=== PATIENT | male | born 1945 | race Caucasian/White ===

== ENCOUNTER → 2017-09-10 | Outpatient (CLI) | payer MEDICARE, BC ==
[2017-09-10 19:28] LABS: Blood Urea Nitrogen 12 mg/dL (9-20)
--- NOTE | 2017-09-10 20:27 | CT ---
EXAMINATION TYPE: CT brain w con DATE OF EXAM: 09/10/2017 COMPARISON: NONE HISTORY: syncope CT DLP: 1108.4 mGycm Automated exposure control for dose reduction was used. CONTRAST: CT scan of the head is performed with IV Contrast, patient injected with 100 mL of Isovue 300. FINDINGS: Ventricles and sulci appear normal. There is no mass effect nor midline shift. There is no sign of in tracranial hemorrhage. I see no pathologic enhancement. The calvarium is intact. There is debris in t he external auditory canals. IMPRESSION: Negative CT scan of the brain.
== END | disposition home or self-care (01) ==
LOC: RADCTMAIN 18:38
PROVIDERS: ATTEND Family Medicine
DX: R26.89 Other abnormalities of gait and mobility (principal); R55 Syncope and collapse
CPT/HCPCS: 82565; 84520; 70460; 36415; Q9967

== ENCOUNTER → 2017-11-01 | Outpatient (CLI) | payer MEDICARE, BC ==
--- NOTE | 2017-11-01 16:26 | MR ---
EXAMINATION TYPE: MR brain wo con DATE OF EXAM: 11/01/2017 COMPARISON: CT brain September 10, 2017 HISTORY: Dizziness and bilateral Loss of Hearing per patient, Unsteady [place] per order. TECHNIQUE: Multiplanar, multisequence imaging of the brain and brainstem is performed without IV cont rast. FINDINGS: Diffusion weighted images demonstrate no evidence of a recent infarct or other diffusion abnormality. There is no worrisome extra-axial fluid collection. There is diffuse ventricular and sulcal prominenc e consistent with mild age-related cerebral atrophy. Few scattered small foci of T2 hyperintensity ar e seen throughout the white matter bilaterally. For reference there is 8mm lesion in the left externa l capsule axial image 15 noted. Midline structures demonstrate normal morphology. The craniocervical junction appears within normal limits. Normal vascular flow voids are present. There is mild mucosal thickening involving ethmoid si nuses bilaterally redemonstrated. The globes are intact bilaterally. 6 Increased fluid signal right g reater than left mastoid air cells remains present. Nasal septum is redemonstrated deviated to right of midline. IMPRESSION: 1. Right greater than left mastoid fluid could reflect mastoiditis in appropriate setting, correlate clinically. 2. Background mild diffuse age-related cerebral atrophy and chronic small vessel ischemic change. 3. Stable mild chronic paranasal sinus disease.
== END | disposition home or self-care (01) ==
LOC: RADMRIMAIN 15:41
PROVIDERS: ATTEND Family Medicine
DX: G31.1 Senile degeneration of brain, not elsewhere classified (principal); I67.82 Cerebral ischemia
CPT/HCPCS: 70551

== ENCOUNTER → 2018-07-22 | Outpatient (CLI) | payer MEDICARE, BC ==
[2018-07-22 13:19] LABS: Blood Urea Nitrogen 12 mg/dL (9-20)
--- NOTE | 2018-07-22 15:23 | CT ---
EXAMINATION TYPE: CT abdomen pelvis w con DATE OF EXAM: 07/22/2018 COMPARISON: 07/26/2015 HISTORY: abdominal pain, diverticulitis CT DLP: 490.3 mGycm CONTRAST: CT scan of the abdomen and pelvis is performed with Oral Contrast and with IV Contrast, patient injec mandy with 100 mL of Isovue 300. FINDINGS: LUNG BASES-: No visible nodule. No infiltrate. LIVER/GB: Cholecystectomy changes noted. No space occupying hepatic lesion. Biliary tree is of nor mal caliber. PANCREAS: No inflammation. No distinct mass. SPLEEN: No splenic enlargement. No lesion seen. ADRENALS: No nodule. No thickening. KIDNEYS/BLADDER: No hydronephrosis. No nephrolithiasis. Renal cystic changes noted. Urinary bladder grossly unremarkable. BOWEL: Normal appendix. Normal bowel caliber. There is extensive diverticulosis of the sigmoid colon with muscle hypertrophy noted. No evidence for active diverticulitis at this time. Additional scatte red diverticula throughout the colon. GENITAL ORGANS: No gross abnormality. LYMPH NODES: No greater than 1cm abdominal or pelvic lymph nodes are appreciated. AORTA: No significant abnormality. OSSEOUS STRUCTURES: No significant abnormality is seen. OTHER: No significant additional abnormality is seen. IMPRESSION: 1. There is extensive diverticulosis of the sigmoid colon with muscle hypertrophy noted. No evidence for active diverticulitis at this time.
== END ==
LOC: RADCTMAIN 12:34
PROVIDERS: ATTEND Family Medicine
DX: K57.30 Diverticulosis of large intestine without perforation or abscess without bleeding (principal); M62.89 Other specified disorders of muscle
CPT/HCPCS: 82565; 84520; 74177; 36415; Q9967

== ENCOUNTER → 2018-12-08 | Outpatient (CLI) | payer MEDICARE, BC ==
[2018-12-08 09:18] LABS: Basophils # (A) 0.2 k/uL (0-0.2); Basophils % (A) 2 %; Eosinophils # (A) 0.1 k/uL (0-0.7); Eosinophils % (A) 2 %; HCT 53.3 % (39.0-53.0); HGB 17.7 gm/dL (13.0-17.5); Lymphocytes # (A) 1.6 k/uL (1.0-4.8); Lymphocytes % (A) 20 %; MCH 34.7 pg (25.0-35.0); MCHC 33.2 g/dL (31.0-37.0); MCV 104.3 fL (80.0-100.0); Macrocytosis Slight; Mean Platelet Volume 7.4; Monocytes # (A) 0.7 k/uL (0-1.0); Monocytes % (A) 8 %; Neutrophils # (A) 5.2 k/uL (1.3-7.7); Neutrophils % (A) 65 %; Platelet Count 241 k/uL (150-450); RBC 5.11 m/uL (4.30-5.90); WBC 7.9 k/uL (3.8-10.6)
[2018-12-08 09:26] LABS: African American GFR (CKD) >90 (>60 ml/min/1.73 sqM); Anion Gap 6 mmol/L; Blood Urea Nitrogen 8 mg/dL (9-20); C Reactive Protein <5.0 mg/L (<10.0); Calcium 9.3 mg/dL (8.4-10.2); Carbon Dioxide 26 mmol/L (22-30); Chloride 107 mmol/L (98-107); Glucose 98 mg/dL (74-99); Sodium 139 mmol/L (137-145)
--- NOTE | 2018-12-08 10:37 | CT ---
EXAMINATION TYPE: CT abdomen pelvis w con DATE OF EXAM: 12/08/2018 COMPARISON: 07/22/2018 HISTORY: Diverticulitis CT DLP: 431.4 mGycm CONTRAST: CT scan of the abdomen and pelvis is performed with Oral Contrast and with IV Contrast, patient injec mandy with 100 mL of Isovue 300. FINDINGS: LUNG BASES-: No visible nodule. No infiltrate. LIVER/GB: The gallbladder surgically absent. No space occupying hepatic lesion. Biliary tree is of normal caliber. There is evidence of mild hepatic steatosis. PANCREAS: No inflammation. No distinct mass. SPLEEN: No splenic enlargement. No lesion seen. ADRENALS: No nodule. No thickening. KIDNEYS/BLADDER: No hydronephrosis. No nephrolithiasis. Stable renal cysts. Largest cyst upper pole right kidney measures 4.4 cm. Urinary bladder grossly unremarkable. BOWEL: Normal appendix. Normal bowel caliber. No inflammation. Moderate sigmoid diverticulosis with out diverticulitis. GENITAL ORGANS: No gross abnormality. LYMPH NODES: No greater than 1cm abdominal or pelvic lymph nodes are appreciated. AORTA: No significant abnormality. OSSEOUS STRUCTURES: No significant abnormality is seen. OTHER: No significant additional abnormality is seen. IMPRESSION: 1. Sigmoid diverticulosis without diverticulitis.
[2018-12-08 12:36] LABS: Erythrocyte Sedimentation Rate 2 mm/hr (0-15)
== END | disposition home or self-care (01) ==
LOC: RADCTMAIN 08:06
PROVIDERS: ATTEND Family Medicine
DX: K57.30 Diverticulosis of large intestine without perforation or abscess without bleeding (principal); E78.00 Pure hypercholesterolemia, unspecified; I10 Essential (primary) hypertension; G89.4 Chronic pain syndrome; F43.22 Adjustment disorder with anxiety
CPT/HCPCS: 80048; 85652; 85025; 86140; 86431; 74177; 36415; Q9967

== ENCOUNTER 2018-12-20 08:56 | Day surgery (SDC) | payer MEDICARE, BC ==
[~2018-12-20 08:56] MED LIST: LIDOCAINE 1% 20 ML VIAL (10MG/ML) FOR IV START INTRADERMA PRN
[2018-12-20 09:25] VITALS: RESP 16; TEMP 97.4
[2018-12-20] MEDS: LACTATED RINGERS 1,000 ML IV SCH ×2 (09:35→10:02)
[2018-12-20] MEDS ORDERED: PROPOFOL 10 MG/ML 20 ML VIAL IV ONE (10:04)
--- NOTE | 2018-12-20 10:08 | P.GSHP ---
History of Present Illness H&P Date: 12/20/18 Chief Complaint: Diverticulitis This a 73-year-old male referred from Dr. Thurston. Patient presents today for colonoscopy. He's had history of diverticulitis. Past Medical History Past Medical History: Hypertension Additional Past Medical History / Comment(s): ABD PAIN, HX OF DIVERTICULTIS. History of Any Multi-Drug Resistant Organisms: None Reported Past Surgical History: Heart Catheterization With Stent Additional Past Surgical History / Comment(s): RETINOL DETACHMENT REPAIR (6 ON LEFT, 1 ON RIGHT). Past Anesthesia/Blood Transfusion Reactions: No Reported Reaction Date of Last Stent Placement:: UNKNOWN DATE Past Psychological History: No Psychological Hx Reported Smoking Status: Current every day smoker Past Alcohol Use History: None Reported Additional Past Alcohol Use History / Comment(s): SMOKES ABOUT 2-3 DAY, SINCE WAS AGE 23 YRS. Past Drug Use History: None Reported Medications and Allergies Home Medications Medication Instructions Recorded Confirmed Type EPINEPHrine [Epipen 2-Linden] 0.3 mg IM ONCE PRN #1 ml 01/12/14 12/20/18 Rx Aspirin EC [Ecotrin Low Dose] 81 mg PO DAILY 12/16/18 12/16/18 History HYDROcodone/APAP 5-325MG [[place] 1 tab PO Q6H PRN 12/16/18 12/16/18 History 5-325] Metoprolol Tartrate 25 mg PO QAM 12/16/18 12/16/18 History Allergies Allergy/AdvReac Type Severity Reaction Status Date / Time venom-honey bee Allergy Anaphylaxis Verified 12/16/18 12:14 [bee venom (honey bee)] Surgical - Exam Vital Signs Temp Pulse Resp BP Pulse Ox 97.4 F L 71 16 133/81 97 12/20/18 09:23 12/20/18 09:23 12/20/18 09:23 12/20/18 09:23 12/20/18 09:23 - General well developed, well nourished, no distress - Eyes PERRL - ENT normal pinna - Neck no masses - Respiratory normal expansion - Cardiovascular Rhythm: regular - Abdomen Abdomen: soft, non tender Assessment and Plan Assessment: Diverticula is. We'll perform colonoscopy.
--- NOTE | 2018-12-20 10:22 | P.OP ---
Date of Procedure: 12/20/18 Preoperative Diagnosis: Diverticulitis Postoperative Diagnosis: Rectal prolapse Severe diverticulosis Procedure(s) Performed: Colonoscopy Anesthesia: MAC Surgeon: Ralf Rodriguez Pathology: none sent Condition: stable Disposition: PACU Description of Procedure: The patient's placed on the endoscopy table in the lateral position. He received IV sedation. Digital rectal exam was performed which revealed rectal prolapse. This was photographed. The colonoscope was then placed patient anus and passed throughout the entire colon. The ileocecal valve was visualized. The cecum, ascending and transverse colon appeared normal. In the descending and sigmoid colon there was severe diverticulosis. There is no evidence of any diverticulitis. The scope summer back the rectum and this appeared normal. Scope withdrawn through the anus and the rectal prolapse was visualized. Withdrawn for patient.
[2018-12-20 10:44] VITALS: BP 144/71; PULSE 66
== END 2018-12-20 10:50 | disposition home or self-care (01) ==
LOC: ORWHC2ENDO 08:56
PROVIDERS: ATTEND Surgery
DX: K57.30 Diverticulosis of large intestine without perforation or abscess without bleeding (principal); K62.3 Rectal prolapse; K64.9 Unspecified hemorrhoids; I10 Essential (primary) hypertension; I25.10 Atherosclerotic heart disease of native coronary artery without angina pectoris; F17.210 Nicotine dependence, cigarettes, uncomplicated; Z95.5 Presence of coronary angioplasty implant and graft; Z79.82 Long term (current) use of aspirin; Z79.899 Other long term (current) drug therapy; Z90.49 Acquired absence of other specified parts of digestive tract; Z98.890 Other specified postprocedural states; Z91.030 Bee allergy status
CPT/HCPCS: 45378; J2704

== ENCOUNTER → 2019-02-06 | Outpatient (CLI) | payer MEDICARE, BC ==
[2019-02-06 15:18] LABS: HCT 54.6 % (39.0-53.0); HGB 18.2 gm/dL (13.0-17.5); MCH 35.3 pg (25.0-35.0); MCHC 33.3 g/dL (31.0-37.0); Macrocytosis Moderate; Mean Platelet Volume 7.7; Platelet Count 209 k/uL (150-450); RBC 5.15 m/uL (4.30-5.90); RDW 13.4 % (11.5-15.5); WBC 11.3 k/uL (3.8-10.6)
== END | disposition home or self-care (01) ==
LOC: LABPAT 14:26
PROVIDERS: ATTEND Surgery
DX: Z01.812 Encounter for preprocedural laboratory examination (principal); Z01.818 Encounter for other preprocedural examination; K57.32 Diverticulitis of large intestine without perforation or abscess without bleeding
CPT/HCPCS: 36415; 80051; 85027; 93005

== ENCOUNTER 2019-02-15 09:45 | Inpatient (IN) | payer MEDICARE, BC ==
[~2019-02-15 09:45] MED LIST changes: +DEXAMETHASONE SOD PHOSPHATE 10 MG/ML 1 ML VIAL IV ONE; +HEPARIN SODIUM,PORCINE 5,000 UNIT/ML 1 ML VIAL SQ ONE; +HYDROmorphone 0.5 MG/0.5 ML SYRINGE IVP PRN; +MIDAZOLAM 2 MG/2 ML VIAL IV PRN; +ONDANSETRON 4 MG/2 ML VIAL IVP ONE; +SCOPOLAMINE 1.5MG/72HR PATCH TRANSDERM ONE; +metroNIDAZOLE-NS PMX 500 MG in SALINE 1 100ML.BAG IVPB ONE
--- NOTE | 2019-02-15 13:35 | P.GSHP ---
History of Present Illness H&P Date: 02/15/19 Chief Complaint: Diverticulitis, rectal prolapse This a 73-year-old male with history of diverticulitis and rectal prolapse. Patient resents today for low anterior resection. Patient's aware the risks of surgery including anastomotic leak and colostomy. Past Medical History Past Medical History: Hypertension Additional Past Medical History / Comment(s): ABD PAIN, HX OF DIVERTICULTIS. History of Any Multi-Drug Resistant Organisms: None Reported Past Surgical History: Heart Catheterization With Stent Additional Past Surgical History / Comment(s): RETINOL DETACHMENT REPAIR (6 ON LEFT, 1 ON RIGHT). Past Anesthesia/Blood Transfusion Reactions: No Reported Reaction Date of Last Stent Placement:: UNKNOWN DATE Smoking Status: Current every day smoker - Past Family History Daughter(s) Family Medical History: Cancer Additional Family Medical History / Comment(s): breast cancer Medications and Allergies Home Medications Medication Instructions Recorded Confirmed Type EPINEPHrine [Epipen 2-Linden] 0.3 mg IM ONCE PRN #1 ml 01/12/14 02/15/19 Rx Aspirin EC [Ecotrin Low Dose] 81 mg PO DAILY 12/16/18 02/14/19 History HYDROcodone/APAP 5-325MG [[place] 1 tab PO Q6H PRN 12/16/18 02/15/19 History 5-325] Metoprolol Tartrate 25 mg PO QAM 12/16/18 02/15/19 History Allergies Allergy/AdvReac Type Severity Reaction Status Date / Time venom-honey bee Allergy Anaphylaxis Verified 02/14/19 08:16 [bee venom (honey bee)] Surgical - Exam - General well developed, well nourished, no distress - Eyes PERRL - ENT normal pinna - Neck no masses - Respiratory normal expansion - Cardiovascular Rhythm: regular - Abdomen Abdomen: soft, non tender Assessment and Plan Assessment: History of diverticulitis rectal prolapse. Patient will undergo low anterior resection.
[2019-02-15] MEDS ORDERED: ALVIMOPAN 12 MG CAPSULE PO ONE (13:55)
[2019-02-15] MEDS: LACTATED RINGERS 1,000 ML IV SCH ×2 (13:56→23:17)
[2019-02-15] MEDS ORDERED: diphenhydrAMINE 50 MG/ML 1 ML VIAL IVP PRN (14:07)
[2019-02-15] MEDS ORDERED: NALOXONE 0.4 MG/ML 1 ML VIAL IV PRN (14:07)
[2019-02-15] MEDS ORDERED: NALBUPHINE 10 MG/ML (1 ML AMP) IV PRN (14:07)
[2019-02-15] MEDS ORDERED: fentaNYL (PF) 50 MCG/ML 2 ML AMP IVP ONE ×2 (14:09)
[2019-02-15] MEDS ORDERED: ROCURONIUM BROMIDE 10 MG/ML 10 ML VIAL IV ONE (14:35)
[2019-02-15] MEDS ORDERED: LIDOCAINE 1% INJ 10MG/ML (20 ML MDV) ONE (14:35)
[2019-02-15] MEDS ORDERED: PROPOFOL 10 MG/ML 20 ML VIAL IV ONE (14:35)
[2019-02-15] MEDS ORDERED: SUCCINYLCHOLINE CHLORIDE 100 MG/5 ML SYR IV ONE (14:35)
[2019-02-15] MEDS ORDERED: fentaNYL (PF) 50 MCG/ML 2 ML AMP ONE (14:35)
[2019-02-15] MEDS ORDERED: GLYCOPYRROLATE 0.2 MG/ML 2 ML VIAL ONE (14:35)
[2019-02-15] MEDS ORDERED: NEOSTIGMINE 1 MG/ML 10 ML VIAL ONE (14:35)
[2019-02-15] MEDS ORDERED: PHENYLEPHRINE-0.9% NACL SYG 1 MG/10 ML SYRINGE ONE (14:35)
[2019-02-15] MEDS ORDERED: LACTATED RINGERS 1,000 ML IV ONE ×4 (15:01→16:16)
[2019-02-15] MEDS: ROPIVACAINE 300 MG, fentaNYL (PF) 1,250 MCG in SODIUM CHLORIDE 0.9% 165 ML EPIDURAL PRN ×2 (16:16→17:42)
--- NOTE | 2019-02-15 16:34 | P.OP ---
Date of Procedure: 02/15/19 Preoperative Diagnosis: Diverticulitis Rectal prolapse Postoperative Diagnosis: Diverticulitis Rectal prolapse Procedure(s) Performed: Low anterior resection Anesthesia: DAVID Surgeon: Ralf Rodriguez Estimated Blood Loss (ml): 25 Pathology: other (Sigmoid colon) Condition: stable Disposition: PACU Description of Procedure: DESCRIPTION OF PROCEDURE: The patient was placed on the operating table in the supine position. Patient received a general anesthesia. Patient was then placed in the dorsal lithotomy position. The patients abdomen was prepped and draped in the usual sterile fashion. Through a low midline incision, the abdomen was entered. The Latrell wound protector was used. The Bookwalter retractor was placed in the wound. The stomach appeared normal. The small bowel appeared normal. The liver appeared normal. The right colon and tr ansverse colon appeared normal. On the left colon, there was an extensive diverticulosis noted. The sigmoid colon was then mobilized by dividing the white line of [place] with electrocautery. At this point, the proximal sigmoid colon was transected with a GI stapler after a window had been made in the mesentery. The distal sigmoid colon was then dissected. Mesentery was taken down with the Enseal device. The rectum was then transected with the contour stapler. Next, a enterotomy is made in the distal colon. The anvil for the EEA stapler was placed into the colon. The colon was then transected with the MELISSA stapler. And then the anvil spike was driven through the staple line. Using the Enseal device the mesentery the bowel was divided and the specimen sent to pathology. The EEA stapler device was then placed in the patient'ss anus and passed into the rectum. The nail for the EEA was then brought out through the distal rectum and then attached to the anvil. The EEA stapler device was then fired. The anastomosis was inspected. There were 2 good donuts of tissue removed from the EEA stapler. The anastomosis was then tested under water and there was no air leak seen. At this point the abdomen was then irrigated. There was no bleeding seen. The fascia was closed with clean instruments. The skin was closed kim. Patient top she will was sent to recovery room stable condition.
[2019-02-15] MEDS: MEPERIDINE 50 MG/ML SYRINGE IVP ONE ×2 (17:00→17:10)
[2019-02-15 19:58] LABS: Basophils # (A) 0.1 k/uL (0-0.2); Basophils % (A) 1 %; Eosinophils # (A) 0.1 k/uL (0-0.7); Eosinophils % (A) 1 %; HCT 49.5 % (39.0-53.0); HGB 16.2 gm/dL (13.0-17.5); Lymphocytes # (A) 0.4 k/uL (1.0-4.8); Lymphocytes % (A) 4 %; MCH 35.1 pg (25.0-35.0); MCHC 32.7 g/dL (31.0-37.0); MCV 107.5 fL (80.0-100.0); Macrocytosis Moderate; Mean Platelet Volume 6.6; Monocytes # (A) 0.5 k/uL (0-1.0); Monocytes % (A) 4 %; Neutrophils # (A) 10.3 k/uL (1.3-7.7); Neutrophils % (A) 90 %; Platelet Count 215 k/uL (150-450); RBC 4.61 m/uL (4.30-5.90); RDW 13.4 % (11.5-15.5); WBC 11.5 k/uL (3.8-10.6)
[2019-02-15 20:04] LABS: Potassium 4.4 mmol/L (3.5-5.1)
[2019-02-15 20:05] LABS: African American GFR (CKD) >90 (>60 ml/min/1.73 sqM); Anion Gap 7 mmol/L; Blood Urea Nitrogen 13 mg/dL (9-20); Calcium 8.5 mg/dL (8.4-10.2); Carbon Dioxide 20 mmol/L (22-30); Chloride 112 mmol/L (98-107); Glucose 102 mg/dL (74-99); Non-African American GFR(CKD) >90 (>60 ml/min/1.73 sqM); Sodium 139 mmol/L (137-145)
[2019-02-15] MEDS: ALVIMOPAN 12 MG CAPSULE PO SCH (20:40)
[2019-02-15] MEDS: D5-0.45% NACL WITH KCL 20MEQ/L 1,000 ML IV SCH ×2 (20:40→23:16)
[2019-02-15] MEDS: HEPARIN SODIUM,PORCINE 5,000 UNIT/ML 1 ML VIAL SQ SCH (23:16)
[2019-02-15] MEDS: MORPHINE SULFATE 2 MG/ML SYRINGE IV PRN (23:24)
[2019-02-16] MEDS: MORPHINE SULFATE 2 MG/ML SYRINGE IV PRN ×2 (02:41→05:00)
[2019-02-16] MEDS: METOPROLOL TARTRATE 25 MG TAB PO SCH (08:23)
[2019-02-16] MEDS: HEPARIN SODIUM,PORCINE 5,000 UNIT/ML 1 ML VIAL SQ SCH ×3 (08:23→23:53)
[2019-02-16] MEDS: ALVIMOPAN 12 MG CAPSULE PO SCH ×2 (08:23→20:27)
[2019-02-16] MEDS: D5-0.45% NACL WITH KCL 20MEQ/L 1,000 ML IV SCH ×3 (08:23→23:53)
--- NOTE | 2019-02-16 09:01 | P.PN ---
Progress Note - Text Progress Note Date: 02/16/19 Anesthesia Postop day 1 Status post low anterior resection with epidural day 2 Patient seen and examined. Doing well without complaint. VAS 0Y still, increases with movement. No nausea vomiting or pruritus. Epidural site intact without induration. Dressing intact. No apparent motor block. Sensory within normal limits. Ropivacaine 0.125% with fentanyl 5 g per mL at 11 mL an hour. Anticipate reevaluation tomorrow. Anticipate discontinued in 2 days. Assessment: #1 status post low anterior resection postop day 1 with epidural Plan #1 continue current therapy with maintained breakthrough meds
[2019-02-16] MEDS: ROPIVACAINE 300 MG, fentaNYL (PF) 1,250 MCG in SODIUM CHLORIDE 0.9% 165 ML EPIDURAL PRN (13:03)
--- NOTE | 2019-02-16 13:54 | P.PN ---
Subjective Progress Note Date: 02/16/19 CHIEF COMPLAINT: Diverticulitis, rectal prolapse HISTORY OF PRESENT ILLNESS: Patient is status post low anterior resection with Dr. Rodriguez. Postop day #1. Patient examined at the bedside. Patient is complaining of abdominal pain. His epidural was increased to 11 mL an hour this morning. He denies passing flatus. He is tolerating clear liquids. He has not been out of bed yet today. He reports using his incentive spirometer. PHYSICAL EXAM: VITAL SIGNS: Reviewed. GENERAL: Well-developed in no acute distress. HEENT: No sclera icterus. Extraocular movements grossly intact. Moist buccal mucosa. Head is atraumatic, normocephalic. ABDOMEN: Soft. Nondistended. Appropriate surgical tenderness. Dressing clean dry and intact. NEUROLOGIC: Alert and oriented. Cranial nerves II through XII grossly intact. ASSESSMENT: 1. Diverticulitis and rectal prolapse, status post low anterior resection PLAN: 1. Pain control. Continue epidural. Remove postop day #3 2. Continue Silver catheter while epidural in place 3. Increase activity as tolerated 4. Incentive spirometry 10 times an hour while awake 5. Continue liquid diet. Await bowel function Nurse practitioner note has been reviewed by physician. Signing provider agrees with the documented findings, assessment, and plan of care. Objective - Vital Signs Vital signs: Vital Signs Temp 98.2 F 02/16/19 07:00 Pulse 91 02/16/19 07:00 Resp 16 02/16/19 07:00 BP 144/91 02/16/19 07:00 Pulse Ox 92 L 02/16/19 07:00 Intake & Output 02/15/19 02/16/19 02/16/19 18:59 06:59 18:59 Intake Total 2467 1588.1 323.934 Output Total 250 700 250 Balance 2217 888.1 73.934 Intake: IV 2467 Intake, IV Titration 1538.1 83.934 Amount D5-0.45% NaCl with KCl 1500 20Meq/l 1,000 ml @ 125 mls/hr IV .Q8H [facility] Rx#: [id number] Ropivacaine 300 mg 38.1 83.934 fentaNYL (PF) 1,250 mcg In Sodium Chloride 0.9% 165 ml @ Per Protocol EPIDURAL .Q0M PRN Rx#: [id number] Oral 50 240 Output: Urine 200 700 250 Uretheral (Silver) 250 Estimated Blood Loss 50 Other: Voiding Method Indwelling Catheter - Labs CBC & Chem 7: 02/15/19 19:43 02/15/19 19:43 Labs: Abnormal Lab Results - Last 24 Hours (Table) 02/15/19 02/15/19 Range/Units 19:43 19:43 WBC 11.5 H (3.8-10.6) k/uL MCV 107.5 H (80.0-100.0) fL MCH 35.1 H (25.0-35.0) pg Neutrophils # 10.3 H (1.3-7.7) k/uL Lymphocytes # 0.4 L (1.0-4.8) k/uL Chloride 112 H (98-107) mmol/L Carbon Dioxide 20 L (22-30) mmol/L Glucose 102 H (74-99) mg/dL
[2019-02-17] MEDS: ROPIVACAINE 300 MG, fentaNYL (PF) 1,250 MCG in SODIUM CHLORIDE 0.9% 165 ML EPIDURAL PRN ×2 (05:15→23:27)
[2019-02-17] MEDS: LACTATED RINGERS 1,000 ML IV SCH (05:55)
--- NOTE | 2019-02-17 07:55 | P.PN ---
Progress Note - Text Progress Note Date: 02/17/19 73-year-old male status post low anterior resection postop day #2 epidural catheter day #3. Patient is doing well. Sitting upright in bed. Using incentive spirometry frequently. No motor sensory deficits noted. Epidural catheter site is clean, dry, and intact. Tolerating diet well. Plan is to continue epidural at current settings for 1 more day.
[2019-02-17] MEDS: METOPROLOL TARTRATE 25 MG TAB PO SCH (08:48)
[2019-02-17] MEDS: ALVIMOPAN 12 MG CAPSULE PO SCH ×2 (08:48→20:36)
[2019-02-17] MEDS: HEPARIN SODIUM,PORCINE 5,000 UNIT/ML 1 ML VIAL SQ SCH ×3 (08:48→23:28)
[2019-02-17] MEDS: MORPHINE SULFATE 2 MG/ML SYRINGE IV PRN ×4 (08:54→20:38)
--- NOTE | 2019-02-17 11:19 | P.CONS ---
History of Present Illness - Reason for Consult Consult date: 02/17/19 Medical management of hypertension, nicotine dependence Requesting physician: Ralf Rodriguez - Chief Complaint Abdominal pain, diverticulitis - History of Present Illness This is a 73-year-old gentleman with history of hypertension, abdominal pain, diverticulitis, rectal prolapse, nicotine dependence and multiple other medical issues, status post low anterior resection. Tolerated procedure well. Complains of exertional pain on, epidural. Maintained on IV fluid hydration. Declines nicotine patch. Incentive spirometer up to 1500. Denies chest pain, palpitations or increased shortness of breath. Eagerly awaiting physical therapy to assist him to chair. Tolerating clear liquids, no flatus, no bowel movement. Denies nausea or vomiting. Afebrile.VSS. Review of Systems Constitutional: Denied any fatigue denied any fever. Cardio vascular: denied any chest pain, palpitations Gastrointestinal denied any nausea vomiting Pulmonary: Denied any shortness of breath cough Neurologic denied any new focal deficits ROS Statement: Those systems with pertinent positive or pertinent negative responses have been documented in the HPI. ROS Other: All systems not noted in ROS Statement are negative. Past Medical History Past Medical History: Hypertension Additional Past Medical History / Comment(s): ABD PAIN, HX OF DIVERTICULTIS. History of Any Multi-Drug Resistant Organisms: None Reported Past Surgical History: Heart Catheterization With Stent Additional Past Surgical History / Comment(s): RETINOL DETACHMENT REPAIR (6 ON LEFT, 1 ON RIGHT). Past Anesthesia/Blood Transfusion Reactions: No Reported Reaction Date of Last Stent Placement:: UNKNOWN DATE Past Psychological History: No Psychological Hx Reported Smoking Status: Current every day smoker Past Alcohol Use History: None Reported Additional Past Alcohol Use History / Comment(s): SMOKES ABOUT 2-3 DAY, SINCE WAS AGE 23 YRS. Past Drug Use History: None Reported - Past Family History Daughter(s) Family Medical History: Cancer Additional Family Medical History / Comment(s): breast cancer Medications and Allergies Home Medications Medication Instructions Recorded Confirmed Type EPINEPHrine [Epipen 2-Linden] 0.3 mg IM ONCE PRN #1 ml 01/12/14 02/15/19 Rx Aspirin EC [Ecotrin Low Dose] 81 mg PO DAILY 12/16/18 02/14/19 History HYDROcodone/APAP 5-325MG [[place] 1 tab PO Q6H PRN 12/16/18 02/15/19 History 5-325] Metoprolol Tartrate 25 mg PO QAM 12/16/18 02/15/19 History Allergies Allergy/AdvReac Type Severity Reaction Status Date / Time venom-honey bee Allergy Anaphylaxis Verified 02/14/19 08:16 [bee venom (honey bee)] Physical Exam Vitals: Vital Signs Temp Pulse Pulse Resp BP BP Pulse Ox 02/16/19 07:00 98.2 F 91 16 144/91 92 L 02/16/19 01:16 98.8 F 90 16 147/86 91 L 02/15/19 23:28 90 120/81 94 L 02/15/19 19:00 98.6 F 84 24 118/81 02/15/19 18:05 97.6 F 80 15 130/89 93 L 02/15/19 17:31 82 18 143/81 100 02/15/19 17:16 80 20 144/82 99 02/15/19 17:01 78 22 158/77 98 02/15/19 16:46 80 24 172/80 96 02/15/19 16:31 84 22 166/78 96 02/15/19 16:16 96 28 H 170/90 95 02/15/19 14:19 77 18 128/78 97 02/15/19 13:32 97.7 F 84 18 137/86 99 Intake and Output 02/15/19 02/16/19 02/16/19 22:59 06:59 14:59 Intake Total 1367 1538.1 Output Total 250 700 Balance 1117 838.1 Intake: IV 1317 Intake, IV Titration 1538.1 Amount D5-0.45% NaCl with KCl 1500 20Meq/l 1,000 ml @ 125 mls/hr IV .Q8H [facility] Rx#: [id number] Ropivacaine 300 mg 38.1 fentaNYL (PF) 1,250 mcg In Sodium Chloride 0.9% 165 ml @ Per Protocol EPIDURAL .Q0M PRN Rx#: [id number] Oral 50 Output: Urine 200 700 Estimated Blood Loss 50 Other: Voiding Method Indwelling Catheter Indwelling Catheter PHYSICAL EXAM: VITAL SIGNS: As above GENERAL: Sitting up in bed, no acute distress HEENT: Conjunctivae normal. eyes normal. NECK: No JVD. No thyroid enlargement. No LNs CARDIOVASCULAR: S1, S2 regular.. No murmur RESPIRATION: Breath sounds diminished in the bases. No rhonchi or crackles. No bronchial breathing. ABDOMEN: Soft, nondistended, status post surgery. Midline dressing with 2 shadowing areas, abdominal binder present. nontender . No guarding. Hypoactive Bowel sounds heard. LEGS: No edema. no swelling PSYCHIATRY: Alert and oriented X3, mood and affect normal. NERVOUS SYSTEM: Cranial N 2-12 grossly normal. Moves all 4 limbs. Diffuse weakness No focal deficits. Strength and sensation grossly intact.. Skin: no rash Lymphatic system. No LN neck axilla. Results CBC & Chem 7: 02/15/19 19:43 02/15/19 19:43 Labs: Abnormal Lab Results - Last 24 Hours (Table) 02/15/19 02/15/19 Range/Units 19:43 19:43 WBC 11.5 H (3.8-10.6) k/uL MCV 107.5 H (80.0-100.0) fL MCH 35.1 H (25.0-35.0) pg Neutrophils # 10.3 H (1.3-7.7) k/uL Lymphocytes # 0.4 L (1.0-4.8) k/uL Chloride 112 H (98-107) mmol/L Carbon Dioxide 20 L (22-30) mmol/L Glucose 102 H (74-99) mg/dL Assessment and Plan Assessment: Status post low anterior resection in a patient with history of diverticulitis, rectal prolapse Hypertension Nicotine dependence Plan: Continue on current medication regime ,monitoring and symptomatic treatment. Maintain IV fluid hydration. Aggressive pulmonary toileting with incentive spirometer reinforced. Increase ambulation with PT. Up in chair 3 times a day. Smoking cessation reinforced. Pain management= Epidural recently increased this morning. GI and DVT prophylaxis in place. All meds have been reviewed and resumed accordingly. Thank you for the consult. The impression and plan of care has been dictated as directed. : I performed a history and examination of this patient, discussed the same with the dictator. I agree with the dictator's note ,documented as a scribe. Any additional findings or plans will be noted.
[2019-02-17] MEDS: D5-0.45% NACL WITH KCL 20MEQ/L 1,000 ML IV SCH ×2 (11:45→17:53)
--- NOTE | 2019-02-17 12:23 | P.PN ---
Subjective Progress Note Date: 02/17/19 CHIEF COMPLAINT: Diverticulitis, rectal prolapse HISTORY OF PRESENT ILLNESS: Patient is status post low anterior resection with Dr. Rodriguez. Postop day #2. Patient examined at the bedside. Patient reports his abdominal pain is improved from yesterday. His epidural is infusing and 11 mL an hour. He is tolerating clear liquid diet. He denies passing flatus. He reports he was ambulating in the hallway yesterday. He has not been out of bed yet this morning. He is using his incentive spirometer. Vital signs stable. He is afebrile. PHYSICAL EXAM: VITAL SIGNS: Reviewed. GENERAL: Well-developed in no acute distress. HEENT: No sclera icterus. Extraocular movements grossly intact. Moist buccal mucosa. Head is atraumatic, normocephalic. ABDOMEN: Soft. Nondistended. Appropriate surgical tenderness. Dressing clean dry and intact. NEUROLOGIC: Alert and oriented. Cranial nerves II through XII grossly intact. ASSESSMENT: 1. Diverticulitis and rectal prolapse, status post low anterior resection PLAN: 1. Pain control. Continue epidural. Remove postop day #3 (tomorrow) 2. Continue Silver catheter while epidural in place 3. Increase activity as tolerated. PT/OT on consult 4. Incentive spirometry 10 times an hour while awake 5. Continue liquid diet. Await bowel function 6. Repeat labs in AM Nurse practitioner note has been reviewed by physician. Signing provider agrees with the documented findings, assessment, and plan of care. Objective - Vital Signs Vital signs: Vital Signs Temp 98.2 F 02/17/19 07:00 Pulse 79 02/17/19 07:00 Resp 12 02/17/19 07:00 BP 136/82 02/17/19 07:00 Pulse Ox 94 L 02/17/19 07:00 Intake & Output 02/16/19 02/17/19 02/17/19 18:59 06:59 18:59 Intake Total 834.390 5917.2 Output Total 400 200 Balance -76.066 1528.2 Intake: Intake, IV Titration 83.934 1678.2 Amount D5-0.45% NaCl with KCl 1500 20Meq/l 1,000 ml @ 125 mls/hr IV .Q8H [facility] Rx#: [id number] Ropivacaine 300 mg 83.934 178.2 fentaNYL (PF) 1,250 mcg In Sodium Chloride 0.9% 165 ml @ Per Protocol EPIDURAL .Q0M PRN Rx#: [id number] Oral 240 50 Output: Urine 400 200 Uretheral (Silver) 250 Other: Voiding Method Indwelling Catheter - Labs CBC & Chem 7: 02/15/19 19:43 02/15/19 19:43
[2019-02-17] MEDS: PANTOPRAZOLE 40 MG/10 ML VIAL IVP SCH (12:26)
[2019-02-17] MEDS ORDERED: IPRATROPIUM-ALBUTEROL 3 ML NEB INHALATION PRN (13:42)
--- NOTE | 2019-02-17 13:58 | P.PN ---
Subjective Progress Note Date: 02/17/19 This is a 73-year-old gentleman with history of hypertension, abdominal pain, diverticulitis, rectal prolapse, nicotine dependence and multiple other medical issues, status post low anterior resection. Tolerated procedure well. Complains of exertional pain on, epidural. Maintained on IV fluid hydration. Declines nicotine patch. Incentive spirometer up to 1500. Denies chest pain, palpitations or increased shortness of breath. Eagerly awaiting physical therapy to assist him to chair. Tolerating clear liquids, no flatus, no bowel movement. Denies nausea or vomiting. Afebrile.VSS. 02/17/2019 Ambulating in hallway yesterday afternoon, tolerated exertion well. Pain better controlled, on epidural.No bowel movement, passing flatus, burping.Complains of mild shortness of breath.VSS, maintaining O2 sats in the 90s on room air.afebrile.denies chest pain, palpitations. Objective - Vital Signs Vital signs: Vital Signs Temp 98.2 F 02/17/19 07:00 Pulse 79 02/17/19 07:00 Resp 12 02/17/19 07:00 BP 136/82 02/17/19 07:00 Pulse Ox 94 L 02/17/19 07:00 Intake & Output 02/16/19 02/17/19 02/17/19 18:59 06:59 18:59 Intake Total 673.011 6259.2 Output Total 400 200 Balance -76.066 1528.2 Intake: Intake, IV Titration 83.934 1678.2 Amount D5-0.45% NaCl with KCl 1500 20Meq/l 1,000 ml @ 125 mls/hr IV .Q8H [facility] Rx#: [id number] Ropivacaine 300 mg 83.934 178.2 fentaNYL (PF) 1,250 mcg In Sodium Chloride 0.9% 165 ml @ Per Protocol EPIDURAL .Q0M PRN Rx#: [id number] Oral 240 50 Output: Urine 400 200 Uretheral (Silver) 250 Other: Voiding Method Indwelling Catheter - Exam VITAL SIGNS: As above GENERAL: Sitting up in bed, no acute distress HEENT: Conjunctivae normal. eyes normal. NECK: No JVD. No thyroid enlargement. No LNs CARDIOVASCULAR: S1, S2 regular. No murmur RESPIRATION: Breath sounds diminished in the bases. No rhonchi or crackles. No wheezing. ABDOMEN: Soft, nondistended, status post surgery. Abdominal binder present. No guarding. Hypoactive Bowel sounds heard. LEGS: No edema. no swelling PSYCHIATRY: Alert and oriented X3, mood and affect normal. NERVOUS SYSTEM: Cranial N 2-12 grossly normal. Moves all 4 limbs. Diffuse weakness No focal deficits. Strength and sensation grossly intact.. Skin: no rash Lymphatic system. No LN neck axilla. - Labs CBC & Chem 7: 02/15/19 19:43 02/15/19 19:43 Assessment and Plan Assessment: Status post low anterior resection in a patient with history of diverticulitis, rectal prolapse Hypertension Nicotine dependence Plan: Continue on current medication regime ,monitoring and symptomatic treatment. Maintain IV fluid hydration. Aggressive pulmonary toileting with incentive spirometer reinforced. nebulized bronchodilators ordered. PT.Smoking cessation reinforced. Pain management/epidural. Once epidural discontinued, initiate Flomax prior to DC of Silver catheter. Thank you for the consult. The impression and plan of care has been dictated as directed. : I performed a history and examination of this patient, discussed the same with the dictator. I agree with the dictator's note ,documented as a scribe. Any additional findings or plans will be noted.
[2019-02-17] MEDS: IPRATROPIUM-ALBUTEROL 3 ML NEB INHALATION SCH ×2 (16:24→20:43)
[2019-02-18] MEDS: METOCLOPRAMIDE 5 MG/ML 2 ML VIAL IVP PRN (00:12)
[2019-02-18] MEDS: MORPHINE SULFATE 2 MG/ML SYRINGE IV PRN ×6 (00:13→20:35)
[2019-02-18] MEDS: D5-0.45% NACL WITH KCL 20MEQ/L 1,000 ML IV SCH ×4 (03:18→20:24)
[2019-02-18 07:06] LABS: Basophils % (A) 1 %; Eosinophils # (A) 0.1 k/uL (0-0.7); Eosinophils % (A) 1 %; HCT 46.7 % (39.0-53.0); HGB 15.6 gm/dL (13.0-17.5); Lymphocytes # (A) 1.4 k/uL (1.0-4.8); Lymphocytes % (A) 15 %; MCH 34.9 pg (25.0-35.0); MCHC 33.3 g/dL (31.0-37.0); MCV 104.6 fL (80.0-100.0); Macrocytosis Slight; Mean Platelet Volume 6.5; Monocytes # (A) 0.7 k/uL (0-1.0); Monocytes % (A) 8 %; Neutrophils # (A) 6.5 k/uL (1.3-7.7); Neutrophils % (A) 73 %; Platelet Count 204 k/uL (150-450); RBC 4.47 m/uL (4.30-5.90); RDW 12.9 % (11.5-15.5)
[2019-02-18 07:22] LABS: African American GFR (CKD) >90 (>60 ml/min/1.73 sqM); Anion Gap 4 mmol/L; Blood Urea Nitrogen 5 mg/dL (9-20); Calcium 8.1 mg/dL (8.4-10.2); Carbon Dioxide 23 mmol/L (22-30); Chloride 106 mmol/L (98-107); Glucose 107 mg/dL (74-99); Non-African American GFR(CKD) >90 (>60 ml/min/1.73 sqM); Potassium 4.3 mmol/L (3.5-5.1); Sodium 133 mmol/L (137-145)
[2019-02-18] MEDS: IPRATROPIUM-ALBUTEROL 3 ML NEB INHALATION SCH ×4 (07:59→20:08)
[2019-02-18] MEDS: METOPROLOL TARTRATE 25 MG TAB PO SCH (08:14)
[2019-02-18] MEDS: ALVIMOPAN 12 MG CAPSULE PO SCH (08:15)
[2019-02-18] MEDS: PANTOPRAZOLE 40 MG/10 ML VIAL IVP SCH (08:15)
--- NOTE | 2019-02-18 11:06 | P.PN ---
Subjective Progress Note Date: 02/18/19 Principal diagnosis: Diverticulitis Patient complaining of mild pain although states its better. He did have a small bowel movement. He would like more to eat. White blood cell count normal. Objective - Vital Signs Vital signs: Vital Signs Temp 98.1 F 02/18/19 07:00 Pulse 76 02/18/19 11:02 Resp 20 02/18/19 07:00 BP 132/87 02/18/19 07:00 Pulse Ox 96 02/18/19 07:59 Intake & Output 02/17/19 02/18/19 02/18/19 18:59 06:59 18:59 Intake Total 1200.2 Output Total 1000 700 Balance -1000 500.2 Intake: Intake, IV Titration 1200.2 Amount D5-0.45% NaCl with KCl 1000 20Meq/l 1,000 ml @ 125 mls/hr IV .Q8H [facility] Rx#: [id number] Ropivacaine 300 mg 200.2 fentaNYL (PF) 1,250 mcg In Sodium Chloride 0.9% 165 ml @ Per Protocol EPIDURAL .Q0M PRN Rx#: [id number] Output: Urine 1000 700 Uretheral (Silver) 450 Other: Voiding Method Indwelling Catheter Indwelling Catheter # Bowel Movements 2 - Exam Abdomen: Soft, nondistended, mild tenderness, dressing clean and dry - Labs CBC & Chem 7: 02/18/19 06:39 02/18/19 06:39 Labs: Abnormal Lab Results - Last 24 Hours (Table) 02/18/19 02/18/19 Range/Units 06:39 06:39 MCV 104.6 H (80.0-100.0) fL Sodium 133 L (137-145) mmol/L BUN 5 L (9-20) mg/dL Glucose 107 H (74-99) mg/dL Calcium 8.1 L (8.4-10.2) mg/dL Assessment and Plan (1) Diverticulitis large intestine Narrative/Plan: Patient doing relatively well. Increase diet to full liquids. Ambulate. Remove epidural tomorrow. Current Visit: Yes Status: Acute Code(s): K57.32 - DVTRCLI OF LG INT W/O PERFORATION OR ABSCESS W/O BLEEDING SNOMED Code(s): 7456805
[2019-02-18] MEDS: HEPARIN SODIUM,PORCINE 5,000 UNIT/ML 1 ML VIAL SQ SCH ×2 (14:24→17:48)
[2019-02-18] MEDS: LACTATED RINGERS 1,000 ML IV SCH (14:24)
[2019-02-18] MEDS: ROPIVACAINE 300 MG, fentaNYL (PF) 1,250 MCG in SODIUM CHLORIDE 0.9% 165 ML EPIDURAL PRN (16:05)
--- NOTE | 2019-02-18 16:48 | P.PN ---
Progress Note - Text 02/18 7699 73-year-old male status post low anterior resection by Dr. Rodriguez. Patient has an epidural catheter for postop pain control with the solution running at 20 mL an hour with a VAS of 3. No motor or sensory deficits noted. Patient in the surgeon requested the epidural to be continued for another day. Plan to DC the epidural in a.m.
[2019-02-19] MEDS: MORPHINE SULFATE 2 MG/ML SYRINGE IV PRN ×4 (00:02→10:22)
[2019-02-19] MEDS: HEPARIN SODIUM,PORCINE 5,000 UNIT/ML 1 ML VIAL SQ SCH ×4 (00:03→23:56)
[2019-02-19] MEDS: IPRATROPIUM-ALBUTEROL 3 ML NEB INHALATION SCH ×4 (07:33→20:01)
[2019-02-19] MEDS: PANTOPRAZOLE 40 MG/10 ML VIAL IVP SCH (08:16)
[2019-02-19] MEDS: METOPROLOL TARTRATE 25 MG TAB PO SCH ×2 (08:17→08:18)
[2019-02-19] MEDS: LACTATED RINGERS 1,000 ML IV SCH (10:11)
[2019-02-19] MEDS: D5-0.45% NACL WITH KCL 20MEQ/L 1,000 ML IV SCH ×3 (10:22→18:08)
--- NOTE | 2019-02-19 10:33 | P.PN ---
Subjective Progress Note Date: 02/19/19 Principal diagnosis: Diverticulitis Patient doing well today. Was complaining of some scrotal swelling. He did have a bowel movement. No nausea or vomiting. Tolerating full liquids. He is hungry for more to eat. Pain is controlled. Objective - Vital Signs Vital signs: Vital Signs Temp 98.7 F 02/19/19 07:15 Pulse 80 02/19/19 07:45 Resp 17 02/19/19 07:15 BP 149/85 02/19/19 07:15 Pulse Ox 93 L 02/19/19 07:15 Intake & Output 02/18/19 02/19/19 02/19/19 18:59 06:59 18:59 Intake Total 536.233 480 100 Output Total 950 1000 Balance -413.767 -520 100 Intake: Intake, IV Titration 216.233 Amount Ropivacaine 300 mg 216.233 fentaNYL (PF) 1,250 mcg In Sodium Chloride 0.9% 165 ml @ Per Protocol EPIDURAL .Q0M PRN Rx#: [id number] Oral 320 480 100 Output: Urine 950 1000 Other: Voiding Method Indwelling Catheter Indwelling Catheter - Exam Abdomen: Soft, nondistended, mild tenderness, dressing clean and dry - Labs CBC & Chem 7: 02/18/19 06:39 02/18/19 06:39 Assessment and Plan (1) Diverticulitis large intestine Narrative/Plan: Patient doing well at this time. Will increase diet to soft at this time. Ambulate. Remove Silver and epidural. Current Visit: Yes Status: Acute Code(s): K57.32 - DVTRCLI OF LG INT W/O PERFORATION OR ABSCESS W/O BLEEDING SNOMED Code(s): 0896267
[2019-02-19] MEDS: KETOROLAC 30 MG/ML 1 ML VIAL IVP SCH ×3 (12:09→23:55)
[2019-02-19] MEDS ORDERED: TAMSULOSIN 0.4 MG CAP.ER.24H PO STA (13:01)
--- NOTE | 2019-02-19 13:01 | P.PN ---
Subjective Progress Note Date: 02/19/19 Principal diagnosis: Chronic diverticulitis rectal prolapse 02/19/2019 Patient's awake alert vital signs are stable, patient is in good spirits, the epidural was removed appears to be tolerating well Silver is still intact will start patient on Flomax for removing Silver just as a precaution Objective - Vital Signs Vital signs: Vital Signs Temp 98.7 F 02/19/19 07:15 Pulse 80 02/19/19 11:30 Resp 17 02/19/19 07:15 BP 149/85 02/19/19 07:15 Pulse Ox 93 L 02/19/19 07:15 Intake & Output 02/18/19 02/19/19 02/19/19 18:59 06:59 18:59 Intake Total 536.233 480 100 Output Total 950 1000 Balance -413.767 -520 100 Intake: Intake, IV Titration 216.233 Amount Ropivacaine 300 mg 216.233 fentaNYL (PF) 1,250 mcg In Sodium Chloride 0.9% 165 ml @ Per Protocol EPIDURAL .Q0M PRN Rx#: [id number] Oral 320 480 100 Output: Urine 950 1000 Other: Voiding Method Indwelling Catheter Indwelling Catheter - Exam General: [Patient awake, alert and oriented times 3. Patient in no acute distress.] HEENT: [PERRL. EOMI. No pharyngeal erythema or exudate.] Neck: [No adenopathy.] Cardiac: [Heart regular in rate and rhythm. No S3. No S4. No clicks, rubs. No murmur.] Lungs: [Clear to auscultation bilaterally.] Abdomen: [No mass. No organomegaly. Bowel sounds present but sluggish, tolerating diet well, small amount of bowel gas, Extremes: [No edema no cyanosis no claudication normal pulses] : Normal male genitalia, testicles slightly edematous secondary to fluid Musculoskeletal: [No joint erythema, edema or tenderness.] Skin: [No rash.] Neurologic: [No lateralizing deficits. CN II - XII grossly intact.] Lymphatic: [No adenopathy.] - Labs CBC & Chem 7: 02/18/19 06:39 02/18/19 06:39 Assessment and Plan Plan: Patient status post elective bowel resection secondary to diverticulitis and rectal prolapse Postop day 3, epidural out We will start Flomax prior to removing Silver catheter as a precaution for possible urinary retention Blood pressure stable We will reevaluate in the morning Time with Patient: Greater than 30
[2019-02-19] MEDS: HYDROcodone/APAP 5-325MG 1 EACH TAB PO PRN ×2 (13:55→19:58)
[2019-02-19] MEDS: HYDROmorphone 1 MG/ML 1 ML SYRINGE IVP PRN ×2 (15:13→22:05)
[2019-02-19] MEDS: TAMSULOSIN 0.4 MG CAP.ER.24H PO SCH (15:24)
--- NOTE | 2019-02-19 15:43 | P.PN ---
Progress Note - Text 02/19 2936 73-year-old male status post low anterior resection by Dr. Olvera. Patient had an epidural catheter for postop pain control that was DC'd this morning at surgeon's request. Patient seen this afternoon doing well no motor or sensory deficits
[2019-02-20] MEDS: HYDROcodone/APAP 5-325MG 1 EACH TAB PO PRN ×3 (03:08→17:33)
[2019-02-20] MEDS: KETOROLAC 30 MG/ML 1 ML VIAL IVP SCH ×4 (05:02→22:22)
[2019-02-20] MEDS: D5-0.45% NACL WITH KCL 20MEQ/L 1,000 ML IV SCH ×2 (05:03→21:29)
[2019-02-20] MEDS: METOPROLOL TARTRATE 25 MG TAB PO SCH (07:52)
[2019-02-20] MEDS: HEPARIN SODIUM,PORCINE 5,000 UNIT/ML 1 ML VIAL SQ SCH ×3 (07:52→22:22)
[2019-02-20] MEDS: ONDANSETRON 4 MG/2 ML VIAL IVP PRN ×2 (07:53→17:39)
[2019-02-20] MEDS: PANTOPRAZOLE 40 MG/10 ML VIAL IVP SCH (07:53)
[2019-02-20] MEDS: HYDROmorphone 1 MG/ML 1 ML SYRINGE IVP PRN (07:53)
[2019-02-20] MEDS: TAMSULOSIN 0.4 MG CAP.ER.24H PO SCH (07:54)
[2019-02-20] MEDS: IPRATROPIUM-ALBUTEROL 3 ML NEB INHALATION SCH ×4 (08:56→20:58)
--- NOTE | 2019-02-20 12:48 | P.PN ---
Subjective Progress Note Date: 02/20/19 This is a 73-year-old gentleman with history of hypertension, abdominal pain, diverticulitis, rectal prolapse, nicotine dependence and multiple other medical issues, status post low anterior resection. Tolerated procedure well. Complains of exertional pain on, epidural. Maintained on IV fluid hydration. Declines nicotine patch. Incentive spirometer up to 1500. Denies chest pain, palpitations or increased shortness of breath. Eagerly awaiting physical therapy to assist him to chair. Tolerating clear liquids, no flatus, no bowel movement. Denies nausea or vomiting. Afebrile.VSS. 02/17/2019 Ambulating in hallway yesterday afternoon, tolerated exertion well. Pain better controlled, on epidural.No bowel movement, passing flatus, burping.Complains of mild shortness of breath.VSS, maintaining O2 sats in the 90s on room air.afebrile.denies chest pain, palpitations. 02/20/2019 Flomax initiated over the weekend, Silver catheter discontinued this morning. Spontaneous voiding pending. Epidural discontinued over the weekend, requiring [place], Dilaudid, Toradol to control pain. Incentive spirometer up to 1250. Tolerating low fiber diet with loose bowel movements reported. Denies chest pain, palpitations or shortness of breath. Denies lightheadedness, dizziness or focal deficits. Objective - Vital Signs Vital signs: Vital Signs Temp 98.1 F 02/20/19 07:00 Pulse 88 02/20/19 11:57 Resp 16 02/20/19 07:00 BP 166/94 02/20/19 07:00 Pulse Ox 94 L 02/20/19 07:00 Intake & Output 02/19/19 02/20/19 02/20/19 18:59 06:59 18:59 Intake Total 1100 480 180 Output Total 1200 600 Balance -100 -120 180 Intake: Intake, IV Titration 1000 Amount D5-0.45% NaCl with KCl 1000 20Meq/l 1,000 ml @ 75 mls /hr IV .[id number] [facility] Rx#: [id number] Oral 100 480 180 Output: Urine 1200 600 Other: Voiding Method Indwelling Catheter Indwelling Catheter - Exam VITAL SIGNS: As above GENERAL: Sitting up in bed, no acute distress HEENT: Conjunctivae normal. eyes normal. Oral mucosa moist NECK: No JVD. No thyroid enlargement. No LNs CARDIOVASCULAR: S1, S2 regular. No murmur RESPIRATION: Breath sounds diminished in the bases. No rhonchi or crackles. No wheezing. ABDOMEN: Soft, nondistended, status post surgery. Abdominal binder present. No guarding. Hypoactive Bowel sounds heard. Scrotal edema. LEGS: No edema. no swelling PSYCHIATRY: Alert and oriented X3, mood and affect normal. NERVOUS SYSTEM: Cranial N 2-12 grossly normal. Moves all 4 limbs. Diffuse weakness, No focal deficits. Strength and sensation grossly intact.. Skin: no rash - Labs CBC & Chem 7: 02/18/19 06:39 02/18/19 06:39 Assessment and Plan Assessment: Status post low anterior resection in a patient with history of diverticulitis, rectal prolapse Hypertension Nicotine dependence Plan: Continue on current medication regime ,monitoring and symptomatic treatment. Pain management as per primary. Increase ambulation as tolerated. Aggressive pulmonary toileting with incentive spirometer reinforced. Smoking cessation reinforced. Silver recently discontinued, spontaneous void pending; flomax on board empirically. Discharge planning in place as per surgery, potentially for tomorrow. The impression and plan of care has been dictated as directed. : I performed a history and examination of this patient, discussed the same with the dictator. I agree with the dictator's note ,documented as a scribe. Any additional findings or plans will be noted.
--- NOTE | 2019-02-20 14:21 | P.PN ---
Subjective Progress Note Date: 02/20/19 CHIEF COMPLAINT: Diverticulitis, rectal prolapse HISTORY OF PRESENT ILLNESS: Patient is status post low anterior resection with Dr. Rodriguez. Postop day #5. Patient examined at the bedside. He reports his abdominal pain is tolerable. He is tolerating diet without nausea or vomiting. He is passing flatus. Denies having a bowel movement. He reports a bleeding in the hallway yesterday. He states he is using his incentive spirometer hourly. Vital signs stable. He is afebrile. PHYSICAL EXAM: VITAL SIGNS: Reviewed. GENERAL: Well-developed in no acute distress. HEENT: No sclera icterus. Extraocular movements grossly intact. Moist buccal mucosa. Head is atraumatic, normocephalic. ABDOMEN: Soft. Nondistended. Appropriate surgical tenderness. Dressing clean dry and intact. NEUROLOGIC: Alert and oriented. Cranial nerves II through XII grossly intact. ASSESSMENT: 1. Diverticulitis and rectal prolapse, status post low anterior resection PLAN: 1. Pain control 2. Discontinue serna catheter 3. Increase activity as tolerated. PT/OT on consult 4. Incentive spirometry 10 times an hour while awake 5. Continue diet 6. Possible discharge home tomorrow Nurse practitioner note has been reviewed by physician. Signing provider agrees with the documented findings, assessment, and plan of care. Objective - Vital Signs Vital signs: Vital Signs Temp 98.1 F 02/20/19 07:00 Pulse 88 02/20/19 12:07 Resp 16 02/20/19 07:00 BP 166/94 02/20/19 07:00 Pulse Ox 94 L 02/20/19 07:00 Intake & Output 02/19/19 02/20/19 02/20/19 18:59 06:59 18:59 Intake Total 1100 480 320 Output Total 1200 600 Balance -100 -120 320 Intake: Intake, IV Titration 1000 Amount D5-0.45% NaCl with KCl 1000 20Meq/l 1,000 ml @ 75 mls /hr IV .[id number] [facility] Rx#: [id number] Oral 100 480 320 Output: Urine 1200 600 Other: Voiding Method Indwelling Catheter Indwelling Catheter - Labs CBC & Chem 7: 02/18/19 06:39 02/18/19 06:39
[2019-02-20] MEDS ORDERED: diphenhydrAMINE 25 MG CAP PO PRN (14:29)
[2019-02-20] MEDS: METOCLOPRAMIDE 5 MG/ML 2 ML VIAL IVP PRN (17:39)
[2019-02-21] MEDS ORDERED: KETOROLAC 30 MG/ML 1 ML VIAL ONE (05:09)
[2019-02-21] MEDS: KETOROLAC 30 MG/ML 1 ML VIAL IVP SCH (05:52)
[2019-02-21] MEDS: HYDROcodone/APAP 5-325MG 1 EACH TAB PO PRN ×4 (06:07→23:08)
[2019-02-21 08:03] LABS: Basophils # (A) 0.1 k/uL (0-0.2); Basophils % (A) 2 %; Eosinophils # (A) 0.2 k/uL (0-0.7); Eosinophils % (A) 3 %; HCT 50.1 % (39.0-53.0); HGB 16.6 gm/dL (13.0-17.5); Lymphocytes % (A) 14 %; MCH 34.8 pg (25.0-35.0); MCHC 33.1 g/dL (31.0-37.0); Macrocytosis Slight; Monocytes # (A) 0.6 k/uL (0-1.0); Monocytes % (A) 8 %; Neutrophils # (A) 5.1 k/uL (1.3-7.7); Neutrophils % (A) 72 %; Platelet Count 237 k/uL (150-450); RBC 4.77 m/uL (4.30-5.90); RDW 12.8 % (11.5-15.5); WBC 7.1 k/uL (3.8-10.6)
[2019-02-21 08:24] LABS: African American GFR (CKD) >90 (>60 ml/min/1.73 sqM); Anion Gap 7 mmol/L; Blood Urea Nitrogen 4 mg/dL (9-20); Calcium 8.5 mg/dL (8.4-10.2); Carbon Dioxide 24 mmol/L (22-30); Chloride 106 mmol/L (98-107); Glucose 114 mg/dL (74-99); Non-African American GFR(CKD) >90 (>60 ml/min/1.73 sqM); Potassium 4.2 mmol/L (3.5-5.1); Sodium 137 mmol/L (137-145)
[2019-02-21] MEDS: IPRATROPIUM-ALBUTEROL 3 ML NEB INHALATION SCH ×4 (08:57→19:56)
[2019-02-21] MEDS: PANTOPRAZOLE 40 MG TABLET PO SCH (09:49)
[2019-02-21] MEDS: HEPARIN SODIUM,PORCINE 5,000 UNIT/ML 1 ML VIAL SQ SCH ×3 (09:49→23:08)
[2019-02-21] MEDS: TAMSULOSIN 0.4 MG CAP.ER.24H PO SCH (09:49)
--- NOTE | 2019-02-21 13:52 | P.PN ---
Subjective Progress Note Date: 02/21/19 CHIEF COMPLAINT: Diverticulitis, rectal prolapse HISTORY OF PRESENT ILLNESS: Patient is status post low anterior resection with Dr. Rodriguez. Postop day #6. Patient examined at the bedside. He reports his abdominal pain is tolerable. He is tolerating diet without nausea or vomiting. He is passing flatus and having loose BMs. PHYSICAL EXAM: VITAL SIGNS: Reviewed. GENERAL: Well-developed in no acute distress. HEENT: No sclera icterus. Extraocular movements grossly intact. Moist buccal mucosa. Head is atraumatic, normocephalic. ABDOMEN: Soft. Nondistended. Appropriate surgical tenderness. Dressing clean dry and intact. NEUROLOGIC: Alert and oriented. Cranial nerves II through XII grossly intact. ASSESSMENT: 1. Diverticulitis and rectal prolapse, status post low anterior resection PLAN: -Pain control -Increase activity as tolerated. PT/OT on consult -Incentive spirometry 10 times an hour while awake -Continue diet -Patient states he is not ready to be discharged home today. Possible discharge home tomorrow Nurse practitioner note has been reviewed by physician. Signing provider agrees with the documented findings, assessment, and plan of care. Objective - Vital Signs Vital signs: Vital Signs Temp 98.4 F 02/21/19 07:00 Pulse 88 02/21/19 09:07 Resp 15 02/21/19 07:00 BP 150/98 02/21/19 07:00 Pulse Ox 94 L 02/21/19 07:00 Intake & Output 02/20/19 02/21/19 02/21/19 18:59 06:59 18:59 Intake Total 320 125 Output Total 450 Balance -130 125 Intake: Intake, IV Titration 125 Amount D5-0.45% NaCl with KCl 125 20Meq/l 1,000 ml @ 75 mls /hr IV .[id number] [facility] Rx#: [id number] Oral 320 Output: Urine 450 Other: # Voids 4 - Labs CBC & Chem 7: 02/21/19 07:25 02/21/19 07:25 Labs: Abnormal Lab Results - Last 24 Hours (Table) 02/21/19 02/21/19 Range/Units 07:25 07:25 MCV 105.0 H (80.0-100.0) fL BUN 4 L (9-20) mg/dL Glucose 114 H (74-99) mg/dL
[2019-02-21] MEDS: D5-0.45% NACL WITH KCL 20MEQ/L 1,000 ML IV SCH ×2 (14:00→20:07)
--- NOTE | 2019-02-21 15:34 | P.PN ---
Subjective Progress Note Date: 02/21/19 This is a 73-year-old gentleman with history of hypertension, abdominal pain, diverticulitis, rectal prolapse, nicotine dependence and multiple other medical issues, status post low anterior resection. Tolerated procedure well. Complains of exertional pain on, epidural. Maintained on IV fluid hydration. Declines nicotine patch. Incentive spirometer up to 1500. Denies chest pain, palpitations or increased shortness of breath. Eagerly awaiting physical therapy to assist him to chair. Tolerating clear liquids, no flatus, no bowel movement. Denies nausea or vomiting. Afebrile.VSS. 02/17/2019 Ambulating in hallway yesterday afternoon, tolerated exertion well. Pain better controlled, on epidural.No bowel movement, passing flatus, burping.Complains of mild shortness of breath.VSS, maintaining O2 sats in the 90s on room air.afebrile.denies chest pain, palpitations. 02/20/2019 Flomax initiated over the weekend, Silver catheter discontinued this morning. Spontaneous voiding pending. Epidural discontinued over the weekend, requiring [place], Dilaudid, Toradol to control pain. Incentive spirometer up to 1250. Tolerating low fiber diet with loose bowel movements reported. Denies chest pain, palpitations or shortness of breath. Denies lightheadedness, dizziness or focal deficits. 02/21/2019 pain controlled on [place]. Ambulating multiple laps, and performing stairs with physical therapy. Tolerated exertion well. Incentive spirometer up to 1500.Minimal diet intake. Denies nausea, vomiting. Positive loose bowel movements. Denies chest pain, palpitations or shortness of breath. AFebrile, normal WBC. Objective - Vital Signs Vital signs: Vital Signs Temp 98.4 F 02/21/19 07:00 Pulse 88 02/21/19 09:07 Resp 15 02/21/19 07:00 BP 150/98 02/21/19 07:00 Pulse Ox 94 L 02/21/19 07:00 Intake & Output 02/20/19 02/21/19 02/21/19 18:59 06:59 18:59 Intake Total 320 125 Output Total 450 Balance -130 125 Intake: Intake, IV Titration 125 Amount D5-0.45% NaCl with KCl 125 20Meq/l 1,000 ml @ 75 mls /hr IV .[id number] [facility] Rx#: [id number] Oral 320 Output: Urine 450 Other: # Voids 4 - Exam VITAL SIGNS: As above GENERAL: Sitting up in bed, no acute distress HEENT: Conjunctivae normal. eyes normal. Oral mucosa moist NECK: No JVD. No thyroid enlargement. No LNs CARDIOVASCULAR: S1, S2 regular. No murmur RESPIRATION: Breath sounds diminished in the bases. No rhonchi or crackles. No wheezing. ABDOMEN: Soft, nondistended, status post surgery. Dressing clean dry and intact. No guarding. Bowel sounds heard. Scrotal edema. LEGS: No edema. no swelling PSYCHIATRY: Alert and oriented X3, mood and affect normal. NERVOUS SYSTEM: Cranial N 2-12 grossly normal. Moves all 4 limbs. Diffuse weakness, No focal deficits. Strength and sensation grossly intact.. Skin: no rash - Labs CBC & Chem 7: 02/21/19 07:25 02/21/19 07:25 Labs: Abnormal Lab Results - Last 24 Hours (Table) 02/21/19 02/21/19 Range/Units 07:25 07:25 MCV 105.0 H (80.0-100.0) fL BUN 4 L (9-20) mg/dL Glucose 114 H (74-99) mg/dL Assessment and Plan Assessment: Status post low anterior resection in a patient with history of diverticulitis, rectal prolapse Hypertension Nicotine dependence Plan: Continue on current medication regime ,monitoring and symptomatic treatment. Maintain aggressive pulmonary toileting with incentive spirometer reinforced. Smoking cessation reinforced. Pain management. Discharge planning in place as per surgery, potentially for tomorrow. Medically cleared for discharge, possible home care. Follow-up with PCP in one week. The impression and plan of care has been dictated as directed. : I performed a history and examination of this patient, discussed the same with the dictator. I agree with the dictator's note ,documented as a scribe. Any additional findings or plans will be noted.
[2019-02-21 16:08] VITALS: BMI 20.9
[2019-02-22] MEDS: HYDROcodone/APAP 5-325MG 1 EACH TAB PO PRN ×2 (04:43→08:26)
[2019-02-22 07:55] VITALS: BP 143/92; RESP 14; TEMP 98
[2019-02-22] MEDS: HEPARIN SODIUM,PORCINE 5,000 UNIT/ML 1 ML VIAL SQ SCH (08:24)
[2019-02-22] MEDS: TAMSULOSIN 0.4 MG CAP.ER.24H PO SCH (08:24)
[2019-02-22] MEDS: PANTOPRAZOLE 40 MG TABLET PO SCH (08:24)
[2019-02-22] MEDS: METOPROLOL TARTRATE 25 MG TAB PO SCH (08:24)
[2019-02-22] MEDS: IPRATROPIUM-ALBUTEROL 3 ML NEB INHALATION SCH ×2 (08:31→12:18)
[2019-02-22 08:45] VITALS: PULSE 84
--- NOTE | 2019-02-22 09:54 | P.DS ---
<Priti Richards - Last Filed: 02/22/19 09:52> Providers Expected date of discharge: 02/22/19 Hospital Course: 73-year-old male who underwent low anterior resection secondary to diverticulitis and rectal prolapse with Dr. Rodriguez. Patient is doing well postoperatively without any immediate complications. Pain is controlled on oral medications. He is tolerating diet without nausea or vomiting. He is passing flatus and having bowel movements. Vital signs have been stable. He is stable for discharge home today. Please see EMR for further hospital course details. Discharge Diagnosis: 1. Diverticulitis and rectal prolapse, status post low anterior resection Nurse practitioner note has been reviewed by physician. Signing provider agrees with the documented findings, assessment, and plan of care. Plan - Discharge Summary Discharge Rx Participant: Yes New Discharge Prescriptions: New Ipratropium-Albuterol Nebulize [Duoneb 0.5 mg-3 mg/3 ml Soln] 3 ml INHALATION RT-QID #120 ampul.neb Tamsulosin [Flomax] 0.4 mg PO PC-BRKFST #30 cap.er.24h Continue EPINEPHrine [Epipen 2-[place]] 0.3 mg IM ONCE PRN #1 ml PRN Reason: Anaphylaxis Metoprolol Tartrate 25 mg PO QAM HYDROcodone/APAP 5-325MG [[place] 5-325] 1 tab PO Q6H PRN PRN Reason: BACK PAIN Aspirin EC [Ecotrin Low Dose] 81 mg PO DAILY Discharge Medication List EPINEPHrine [Epipen 2-[place]] 0.3 mg IM ONCE PRN #1 ml 01/12/14 [Rx] Aspirin EC [Ecotrin Low Dose] 81 mg PO DAILY 12/16/18 [History] HYDROcodone/APAP 5-325MG [[place] 5-325] 1 tab PO Q6H PRN 12/16/18 [History] Metoprolol Tartrate 25 mg PO QAM 12/16/18 [History] Ipratropium-Albuterol Nebulize [Duoneb 0.5 mg-3 mg/3 ml Soln] 3 ml INHALATION RT-QID #120 ampul.neb 02/22/19 [Rx] Tamsulosin [Flomax] 0.4 mg PO PC-BRKFST #30 cap.er.24h 02/22/19 [Rx] Follow up Appointment(s)/Referral(s): [facility],Equipment [NON-STAFF] - As Needed Ivan Elliott MD [STAFF PHYSICIAN] - 1 Week Ralf Rodriguez MD [STAFF PHYSICIAN] - 03/02/19 2:45 pm Patient Instructions/Handouts: Colectomy (DC) Activity/Diet/Wound Care/Special Instructions: No driving while taking [place] No lifting over 10 pounds You may shower. No soaking or tub baths Very light activity until you are reevaluated at your follow up appointment with your surgeon [facility] will deliver nebulizer to bedside before discharge. No smoking keep scrotum elevated as advised <Maxwell Bermudez - Last Filed: 02/22/19 12:41> Providers Date of admission: 02/15/19 12:54 Attending physician: Ralf Rodriguez Consults: 02/15/19 16:29 Consult Physician Routine Consulting Provider: Aguilar Thurston Jr Consult Reason/Comments: Medical management Do you want consulting provider notified?: Yes Primary care physician: Aguilar Thurston - Discharge Diagnosis(es) (1) Diverticulitis large intestine Status: Acute
== END 2019-02-22 12:11 | disposition home or self-care (01) | DRG 331 ==
LOC: 2ORMAIN 12:54 → 4SSUR 16:03
PROVIDERS: ADMIT Surgery; ATTEND Surgery
PROC: 0DTN0ZZ Resection of Sigmoid Colon, Open Approach (ICD-10-PCS; principal; 2019-02-15 14:30)
DX: K57.32 Diverticulitis of large intestine without perforation or abscess without bleeding (principal); K62.3 Rectal prolapse; F17.200 Nicotine dependence, unspecified, uncomplicated; I10 Essential (primary) hypertension; Z79.82 Long term (current) use of aspirin; Z80.3 Family history of malignant neoplasm of breast; Z79.899 Other long term (current) drug therapy; Z91.030 Bee allergy status; Z79.891 Long term (current) use of opiate analgesic
CPT/HCPCS: 80048; 85025; 86850; 86900; 86901; 88307; 94640; 94760

== ENCOUNTER 2019-03-14 11:49 | Inpatient (IN) | payer MEDICARE, BC ==
[2019-03-14] MEDS ORDERED: SODIUM CHLORIDE 0.9% 1,000 ML IV STA (12:27)
[2019-03-14] MEDS ORDERED: MECLIZINE 12.5 MG TAB PO STA (12:27)
--- NOTE | 2019-03-14 12:32 | ED ---
Dizziness HPI - General Source: patient, RN notes reviewed Mode of arrival: ambulatory Limitations: no limitations <Bruce Huber - Last Filed: 03/14/19 15:08> <Juan Carlos Ivory - Last Filed: 03/14/19 15:39> - General Chief Complaint: Dizziness Stated Complaint: dizziness Time Seen by Provider: 03/14/19 12:20 - History of Present Illness Initial Comments: this is a 73-year-old male presents emergency Department chief complaint of dizziness. Patient states she's had ongoing balance issue and states he normally discussed with loses balance but states recently he has extreme dizziness in which the room spins with any sort of movement. He states that she passed out this morning. Patient states approximately 10 days ago he became very dizzy and fell striking his face and the bathroom after going to the bathroom. Patient states he has extensive bruising, pain in the right side. Does not take any blood thinners. Patient had no complaints of chest pain or shortness of breath denies any nausea vomiting. He has had some light loose stools in which he states he had surgery one month ago by Dr. Rodriguez for colon resection for diverticulitis. Denies any rectal bleeding. (Bruce Huber) - Related Data Home Medications Medication Instructions Recorded Confirmed Aspirin EC [Ecotrin Low Dose] 81 mg PO DAILY 12/16/18 03/14/19 HYDROcodone/APAP 5-325MG [[place] 1 tab PO TID PRN 12/16/18 03/14/19 5-325] Metoprolol Tartrate 25 mg PO QAM 12/16/18 03/14/19 Tamsulosin [Flomax] 0.4 mg PO DAILY 03/14/19 03/14/19 Previous Rx's Medication Instructions Recorded Ipratropium-Albuterol Nebulize 3 ml INHALATION RT-QID #120 02/22/19 [Duoneb 0.5 mg-3 mg/3 ml Soln] ampul.neb Allergies Allergy/AdvReac Type Severity Reaction Status Date / Time venom-honey bee Allergy Anaphylaxis Verified 03/14/19 13:51 [bee venom (honey bee)] Review of Systems ROS Other: All systems not noted in ROS Statement are negative. <Bruce Huber - Last Filed: 03/14/19 15:08> ROS Other: All systems not noted in ROS Statement are negative. <Juan Carlos Ivory - Last Filed: 03/14/19 15:39> ROS Statement: Those systems with pertinent positive or pertinent negative responses have been documented in the HPI. Past Medical History Past Medical History: Hypertension Additional Past Medical History / Comment(s): ABD PAIN, HX OF DIVERTICULTIS. History of Any Multi-Drug Resistant Organisms: None Reported Past Surgical History: Heart Catheterization With Stent Additional Past Surgical History / Comment(s): RETINOL DETACHMENT REPAIR (6 ON LEFT, 1 ON RIGHT). colon reconstrucion Past Anesthesia/Blood Transfusion Reactions: No Reported Reaction Date of Last Stent Placement:: UNKNOWN DATE Past Psychological History: No Psychological Hx Reported Smoking Status: Current every day smoker Past Alcohol Use History: Daily Past Drug Use History: None Reported - Past Family History Daughter(s) Family Medical History: Cancer Additional Family Medical History / Comment(s): breast cancer <Bruce Huber - Last Filed: 03/14/19 15:08> General Exam Limitations: no limitations General appearance: alert, in no apparent distress Head exam: Present: atraumatic, normocephalic. Absent: normal inspection ( ecchymosis noted on the right side of the face) Eye exam: Present: PERRL, EOMI, periorbital swelling (right, ecchymosis), periorbital tenderness (right-sided). Absent: normal appearance, scleral icterus, conjunctival injection ENT exam: Present: normal exam, normal oropharynx, mucous membranes moist, TM's normal bilaterally Neck exam: Present: normal inspection, full ROM. Absent: tenderness, meningismus, lymphadenopathy Respiratory exam: Present: normal lung sounds bilaterally. Absent: respiratory distress, wheezes, rales, rhonchi, stridor Cardiovascular Exam: Present: regular rate, normal rhythm, normal heart sounds. Absent: systolic murmur, diastolic murmur, rubs, gallop, clicks Neurological exam: Present: alert, oriented X3, CN II-XII intact, reflexes normal, other (finger to nose intact). Absent: motor sensory deficit Skin exam: Present: warm, dry, intact, normal color. Absent: rash <Bruce Huber - Last Filed: 03/14/19 15:08> Course <Bruce Huber - Last Filed: 03/14/19 15:08> Vital Signs 03/14/19 03/14/19 03/14/19 11:50 13:27 14:42 Temperature 98 F Pulse Rate 94 78 75 Respiratory 18 17 18 Rate Blood Pressure 146/112 165/102 150/100 O2 Sat by Pulse 99 100 100 Oximetry - Reevaluation(s) Reevaluation #1: 03/14/19 15:09 patient reevaluated updated patient has persistent dizziness states he had no improvement. Patient was given IV fluids and Antivert. Patient was given Valium and Reglan at this time. (Bruce Huber) EKG Findings - EKG Comments: EKG Findings:: EKG performed at 12:14 normal sinus rhythm rate of 84 [place] 144 QRS 84 QT/QTC 380/449 <Bruce Huber - Last Filed: 03/14/19 15:08> Medical Decision Making - Lab Data Result diagrams: 03/14/19 14:25 03/14/19 14:27 <Bruce Huber - Last Filed: 03/14/19 15:08> - Lab Data Result diagrams: 03/14/19 14:25 03/14/19 14:27 <Juan Carlos Ivory - Last Filed: 03/14/19 15:39> - Medical Decision Making patient had persistent dizziness unsteady gait. CT is unremarkable left shou lder mild dehydration. Patient will be admitted for neurology consult, intractable dizziness. (Bruce Huber) Patient reexamined and reevaluated by myself, Dr. Ivory. Patient family updated. Case was discussed in detail with Dr. Elliott who will admit. (Juan Carlos Ivory) - Lab Data Lab Results 03/14/19 03/14/19 03/14/19 Range/Units 13:30 14:25 14:27 WBC 11.9 H (3.8-10.6) k/uL RBC 5.15 (4.30-5.90) m/uL Hgb 17.8 H (13.0-17.5) gm/dL Hct 53.3 H (39.0-53.0) % MCV 103.6 H (80.0-100.0) fL MCH 34.6 (25.0-35.0) pg MCHC 33.3 (31.0-37.0) g/dL RDW 12.9 (11.5-15.5) % Plt Count 231 (150-450) k/uL Neutrophils % 74 % Lymphocytes % 16 % Monocytes % 6 % Eosinophils % 1 % Basophils % 1 % Neutrophils # 8.8 H (1.3-7.7) k/uL Lymphocytes # 1.9 (1.0-4.8) k/uL Monocytes # 0.8 (0-1.0) k/uL Eosinophils # 0.1 (0-0.7) k/uL Basophils # 0.1 (0-0.2) k/uL Macrocytosis Slight Sodium 137 (137-145) mmol/L Potassium 4.4 (3.5-5.1) mmol/L Chloride 114 H (98-107) mmol/L Carbon Dioxide 17 L (22-30) mmol/L Anion Gap 6 mmol/L BUN 11 (9-20) mg/dL Creatinine 0.67 (0.66-1.25) mg/dL Est GFR (CKD-EPI)AfAm >90 (>60 ml/min/1.73 sqM) Est GFR (CKD-EPI)NonAf >90 (>60 ml/min/1.73 sqM) Glucose 81 (74-99) mg/dL Calcium 8.8 (8.4-10.2) mg/dL Magnesium 1.6 (1.6-2.3) mg/dL Total Bilirubin 1.3 (0.2-1.3) mg/dL AST 33 (17-59) U/L ALT 28 (4-49) U/L Alkaline Phosphatase 82 (38-126) U/L Troponin I (0.000-0.034) ng/mL Total Protein 6.6 (6.3-8.2) g/dL Albumin 3.6 (3.5-5.0) g/dL Lipase 80 (23-300) U/L Urine Color Yellow Urine Appearance Clear (Clear) Urine pH 5.5 (5.0-8.0) Ur Specific [place] 1.025 (1.001-1.035) Urine Protein 1+ H (Negative) Urine Glucose (UA) Negative (Negative) Urine Ketones 2+ H (Negative) Urine Blood Negative (Negative) Urine Nitrite Negative (Negative) Urine Bilirubin 1+ H (Negative) Urine Urobilinogen 3.0 (<2.0) mg/dL Ur Leukocyte Esterase Negative (Negative) Urine RBC 1 (0-5) /hpf Urine WBC 1 (0-5) /hpf Ur Squamous Epith Cells 2 (0-4) /hpf Hyaline Casts 6 H (0-2) /lpf Urine Mucus Many H (None) /hpf 03/14/19 Range/Units 14:27 WBC (3.8-10.6) k/uL RBC (4.30-5.90) m/uL Hgb (13.0-17.5) gm/dL Hct (39.0-53.0) % MCV (80.0-100.0) fL MCH (25.0-35.0) pg MCHC (31.0-37.0) g/dL RDW (11.5-15.5) % Plt Count (150-450) k/uL Neutrophils % % Lymphocytes % % Monocytes % % Eosinophils % % Basophils % % Neutrophils # (1.3-7.7) k/uL Lymphocytes # (1.0-4.8) k/uL Monocytes # (0-1.0) k/uL Eosinophils # (0-0.7) k/uL Basophils # (0-0.2) k/uL Macrocytosis Sodium (137-145) mmol/L Potassium (3.5-5.1) mmol/L Chloride (98-107) mmol/L Carbon Dioxide (22-30) mmol/L Anion Gap mmol/L BUN (9-20) mg/dL Creatinine (0.66-1.25) mg/dL Est GFR (CKD-EPI)AfAm (>60 ml/min/1.73 sqM) Est GFR (CKD-EPI)NonAf (>60 ml/min/1.73 sqM) Glucose (74-99) mg/dL Calcium (8.4-10.2) mg/dL Magnesium (1.6-2.3) mg/dL Total Bilirubin (0.2-1.3) mg/dL AST (17-59) U/L ALT (4-49) U/L Alkaline Phosphatase (38-126) U/L Troponin I 0.039 H* (0.000-0.034) ng/mL Total Protein (6.3-8.2) g/dL Albumin (3.5-5.0) g/dL Lipase (23-300) U/L Urine Color Urine Appearance (Clear) Urine pH (5.0-8.0) Ur Specific [place] (1.001-1.035) Urine Protein (Negative) Urine Glucose (UA) (Negative) Urine Ketones (Negative) Urine Blood (Negative) Urine Nitrite (Negative) Urine Bilirubin (Negative) Urine Urobilinogen (<2.0) mg/dL Ur Leukocyte Esterase (Negative) Urine RBC (0-5) /hpf Urine WBC (0-5) /hpf Ur Squamous Epith Cells (0-4) /hpf Hyaline Casts (0-2) /lpf Urine Mucus (None) /hpf Disposition <Bruce Huber - Last Filed: 03/14/19 15:08> <Juan Carlos Ivory - Last Filed: 03/14/19 15:39> Clinical Impression: Dehydration, Severe dizziness, Syncope Disposition: ADMITTED IP TO THIS [facility] Condition: Fair Referrals: Aguilar Thurston Jr, DO [Primary Care Provider] - 1-2 days
--- NOTE | 2019-03-14 12:54 | XR ---
EXAMINATION TYPE: XR chest 2V DATE OF EXAM: 03/14/2019 COMPARISON: Chest x-ray January 12, 2014. CT July 26, 2015 HISTORY: Dizziness frequent falls and weakness. TECHNIQUE: Frontal and lateral views of the chest are obtained. FINDINGS: Overlying EKG leads are present. There is background chronic emphysematous change without s uspicious focal air space opacity, pleural effusion, or pneumothorax seen. The cardiac silhouette si ze remains within normal limits. The osseous structures are demineralized. Cholecystectomy clips ar e redemonstrated. IMPRESSION: Chronic emphysematous changes without acute pulmonary process.
--- NOTE | 2019-03-14 13:00 | CT ---
EXAMINATION TYPE: CT brain cspine wo con, CT facial bones wo con DATE OF EXAM: 03/14/2019 COMPARISON: CT brain September 10, 2017 HISTORY: Falls, right periorbital contusion, dizziness, nausea. Headache and neck pain. CT DLP: 1136.6 (accession [id number]), 827.9 (accession [id number]) mGycm. Automated Exposure Control for Dose Reduction was Utilized. TECHNIQUE: CT scan of the head and cervical spine are performed without contrast. FINDINGS: There is no acute intracranial hemorrhage or midline shift identified diffuse ventricular and sulcal prominence. Low-attenuation deep white matter redemonstrated. Small focal right frontal s calp hematoma axial image 22. The calvarium is intact. Mandibles intact. Temporomandibular joints are maintained bilaterally. Nasal bones are intact. Orbita l floors and rodriguez are intact. Globes are intact bilaterally. Intraorbital fat is preserved. Zygomati c arches are intact. Pterygoid plates are intact. Nasal septum is redemonstrated deviated to right of midline. Maxilla is intact. Lack of dentition noted. A few remnant teeth in the mandible show surrou nding lucency suspicious for infection for reference right medial tooth on coronal image 41. Paranasa l sinuses are clear. Coronal images show the levoconvex scoliotic curvature centered upper thoracic spine. Sagittal images show grade 1 retrolisthesis C4 on C5, C5 on C6, and C6 on C7. There is no acute fracture or dislocat ion. Prevertebral soft tissue appears within normal limits. The C1-C2 articulation is within normal limits on the coronal images. Vertebral body heights are maintained. Moderate to severe spurring an d disc space narrowing C5-C6 level. Moderate to severe disc space narrowing with mild spurring C6-C7 level. Moderate disc space narrowing and moderate to severe anterior spurring C4-C5 level. Posterior spur disc complexes efface the anterior thecal sac at these levels. Review of axial images show multi level uncal vertebral facet degenerative changes causing multilevel bilateral neural foraminal narrow ing worse on the left side. Visualized lung apices show no pneumothorax. IMPRESSION: 1. There is no acute fracture or dislocation evident in the cervical spine. 2. No acute intracranial hemorrhage or midline shift is seen. 3. No acute displaced facial bone fracture. Small acute right frontal scalp hematoma superior to righ t frontal sinus.
[2019-03-14 13:58] LABS: Appearance,Urine Clear (Clear); Bilirubin,Urine 1+ (Negative); Blood,Urine Negative (Negative); Color,Urine Yellow; Glucose,Urine (UA) Negative (Negative); Hyaline Casts,Urine 6 /lpf (0-2); Ketones,Urine 2+ (Negative); Leukocyte Esterase,Urine Negative (Negative); Mucus,Urine Many /hpf; Nitrite,Urine Negative (Negative); PH, Urine 5.5 (5.0-8.0); Protein,Urine 1+ (Negative); RBC,Urine 1 /hpf (0-5); Specific Gravity,Urine 1.025 (1.001-1.035); Squamous Epithelial Cell,Urine 2 /hpf (0-4); WBC,Urine 1 /hpf (0-5)
[2019-03-14] MEDS ORDERED: ACETAMINOPHEN TAB 325 MG TAB PO STA (14:35)
[2019-03-14 14:44] LABS: ALT 28 U/L (4-49); AST 33 U/L (17-59); African American GFR (CKD) >90 (>60 ml/min/1.73 sqM); Albumin 3.6 g/dL (3.5-5.0); Alkaline Phosphatase 82 U/L (38-126); Anion Gap 6 mmol/L; Blood Urea Nitrogen 11 mg/dL (9-20); Calcium 8.8 mg/dL (8.4-10.2); Carbon Dioxide 17 mmol/L (22-30); Chloride 114 mmol/L (98-107); Glucose 81 mg/dL (74-99); Magnesium 1.6 mg/dL (1.6-2.3); Non-African American GFR(CKD) >90 (>60 ml/min/1.73 sqM); Potassium 4.4 mmol/L (3.5-5.1); Sodium 137 mmol/L (137-145); Total Bilirubin 1.3 mg/dL (0.2-1.3); Total Protein 6.6 g/dL (6.3-8.2)
[2019-03-14 14:50] LABS: Basophils # (A) 0.1 k/uL (0-0.2); Basophils % (A) 1 %; Eosinophils # (A) 0.1 k/uL (0-0.7); Eosinophils % (A) 1 %; HCT 53.3 % (39.0-53.0); HGB 17.8 gm/dL (13.0-17.5); Lymphocytes # (A) 1.9 k/uL (1.0-4.8); Lymphocytes % (A) 16 %; MCH 34.6 pg (25.0-35.0); MCHC 33.3 g/dL (31.0-37.0); MCV 103.6 fL (80.0-100.0); Macrocytosis Slight; Mean Platelet Volume 7.8; Monocytes # (A) 0.8 k/uL (0-1.0); Monocytes % (A) 6 %; Neutrophils # (A) 8.8 k/uL (1.3-7.7); Neutrophils % (A) 74 %; Platelet Count 231 k/uL (150-450); RBC 5.15 m/uL (4.30-5.90); RDW 12.9 % (11.5-15.5); WBC 11.9 k/uL (3.8-10.6)
[2019-03-14] MEDS ORDERED: DIAZEPAM 5 MG/ML 2 ML INJ IVP STA (15:08)
[2019-03-14] MEDS ORDERED: METOCLOPRAMIDE 5 MG/ML 2 ML VIAL IVP STA (15:08)
[2019-03-14] MEDS ORDERED: ONDANSETRON 4 MG/2 ML VIAL IVP PRN (15:10)
[2019-03-14] MEDS ORDERED: NALOXONE 0.4 MG/ML 1 ML VIAL IV PRN (15:10)
[2019-03-14] MEDS ORDERED: METOPROLOL TARTRATE 25 MG TAB PO STA (15:31)
[2019-03-14] MEDS: SODIUM CHLORIDE 0.9% 1,000 ML IV SCH (15:40)
[2019-03-14] MEDS ORDERED: predniSONE 50 MG TAB PO STA (20:07)
[2019-03-15] MEDS: MECLIZINE 25 MG TAB PO PRN (00:48)
[2019-03-15] MEDS: SODIUM CHLORIDE 0.9% 1,000 ML IV SCH ×2 (06:03→17:46)
[2019-03-15] MEDS: NICOTINE 21MG/24HR PATCH TRANSDERM SCH (11:35)
[2019-03-15] MEDS: PANTOPRAZOLE 40 MG/10 ML VIAL IVP SCH (11:36)
[2019-03-15] MEDS: ACETAMINOPHEN TAB 325 MG TAB PO PRN ×2 (11:52→20:37)
--- NOTE | 2019-03-15 15:48 | P.HPIM ---
<Isaura Lou - Last Filed: 03/15/19 15:19> History of Present Illness H&P Date: 03/15/19 Chief Complaint: dizziness, passed out, fall this is a 73-year-old gentleman with history of hypertension, recent colon resection secondary to diverticulitis, CAD, heart catheterization with stent, retinal detachment repair, ongoing nicotine dependence, and multiple other medical issues, presented to the ER status post fall with complaints of dizziness,status post fall. Reports approximately 10-12 days ago, as he was walking out of his bathroom, the cat ran between his legs and he tripped,hitting his face on the floor. Denies syncope. States he was being treated outpatientfor his "off balance". Over the last 5 days dizziness continued to worsen, not only upon arising but also upon turning his head from side to side.Positive left nystagmus noted during neuro examination.denies pain, complai ns of right forehead tenderness. Denies chest pain, palpitations or shortness of breath. Denies fever or chills. Denies abdominal pain. Denies nausea or vomiting or diarrhea. Afebrile,WBC 11.9, hemoglobin 17.8.EKG reported normal sinus rhythm,troponin 0.039. Vital signs stable, maintaining O2 sats in the 90s on room air.UA noted.chest x-ray reporting chronic emphysematous changes without acute pulmonary process.Head /cervical spine and face CTsreported no acute fracture or dislocation in the C-spine, no acute intracranial hemorrhage or midline shift, no acute displaced facial bone fracture, small acute right frontal scalp hematoma superior to right frontal sinus. Review of Systems ROS Other: All systems not noted in ROS Statement are negative. ROS Statement: Those systems with pertinent positive or pertinent negative responses have been documented in the HPI. Past Medical History Past Medical History: Hypertension Additional Past Medical History / Comment(s): ABD PAIN, HX OF DIVERTICULTIS. History of Any Multi-Drug Resistant Organisms: None Reported Past Surgical History: Heart Catheterization With Stent Additional Past Surgical History / Comment(s): RETINOL DETACHMENT REPAIR (6 ON LEFT, 1 ON RIGHT). colon reconstrucion Past Anesthesia/Blood Transfusion Reactions: No Reported Reaction Date of Last Stent Placement:: UNKNOWN DATE Past Psychological History: No Psychological Hx Reported Smoking Status: Current every day smoker Past Alcohol Use History: Daily Additional Past Alcohol Use History / Comment(s): SMOKES ABOUT 2-3 DAY, SINCE WAS AGE 23 YRS. Past Drug Use History: None Reported - Past Family History Daughter(s) Family Medical History: Cancer Additional Family Medical History / Comment(s): breast cancer Medications and Allergies Home Medications Medication Instructions Recorded Confirmed Type RX: Aspirin EC [Ecotrin Low Dose] 81 mg PO DAILY 12/16/18 03/14/19 History RX: HYDROcodone/APAP 5-325MG 1 tab PO TID PRN 12/16/18 03/14/19 History [[place] 5-325] RX: Metoprolol Tartrate 25 mg PO QAM 12/16/18 03/14/19 History RX: Ipratropium-Albuterol Nebulize 3 ml INHALATION RT-QID #120 02/22/19 03/14/19 Rx [Duoneb 0.5 mg-3 mg/3 ml Soln] ampul.neb Allergies Allergy/AdvReac Type Severity Reaction Status Date / Time venom-honey bee Allergy Anaphylaxis Verified 03/14/19 13:51 [bee venom (honey bee)] Physical Exam Vitals: Vital Signs Temp Pulse Pulse Resp BP BP Pulse Ox 03/15/19 07:00 98.3 F 95 16 100/65 94 L 03/15/19 00:29 98.4 F 76 16 138/79 96 03/14/19 19:40 98 F 86 16 131/93 95 03/14/19 16:46 98.0 F 90 16 165/90 96 03/14/19 16:27 98 F 90 18 142/98 96 03/14/19 16:00 90 16 03/14/19 14:42 75 18 150/100 100 03/14/19 13:27 78 17 165/102 100 03/14/19 11:50 98 F 94 18 146/112 99 Intake and Output 03/14/19 03/15/19 03/15/19 22:59 06:59 14:59 Intake Total 150 Balance 150 Intake: Intake, IV Titration 150 Amount Sodium Chloride 0.9% 1, 150 000 ml @ 75 mls/hr IV . [id number] TIFFANIE Rx#:[id number] Other: Weight 58.967 kg PHYSICAL EXAM: VITAL SIGNS: [as above] GENERAL: sitting up in bed, no acute distress HEENT: Conjunctivae normal. eyes normal.right frontal hematoma, Right orbital ecchymosis, oral mucosa moist NECK: No JVD. No thyroid enlargement. No LNs CARDIOVASCULAR: S1, S2 regular.. No murmur RESPIRATION: Breath sounds diminished in the bases. No rhonchi or crackles. No bronchial breathing. ABDOMEN: Soft, nontender .recent abdominal surgery, incision well approximated, No guarding. no masses palpable. No ascites, No hepatosplen omegaly.Bowel sounds heard. LEGS: No edema. no swelling PSYCHIATRY: Alert and oriented X3, mood and affect normal. NERVOUS SYSTEM: Cranial N 2-12 grossly normal. Moves all 4 limbs. No focal deficits. Strength and sensation grossly intact.. Skin: no rash Joints: No active swelling. No inflammation. Lymphatic system. No LN neck axilla or groin. Results CBC & Chem 7: 03/14/19 14:25 03/14/19 14:27 Labs: Abnormal Lab Results - Last 24 Hours (Table) 03/14/19 03/14/19 03/14/19 Range/Units 13:30 14:25 14:27 WBC 11.9 H (3.8-10.6) k/uL Hgb 17.8 H (13.0-17.5) gm/dL Hct 53.3 H (39.0-53.0) % MCV 103.6 H (80.0-100.0) fL Neutrophils # 8.8 H (1.3-7.7) k/uL Chloride 114 H (98-107) mmol/L Carbon Dioxide 17 L (22-30) mmol/L Troponin I (0.000-0.034) ng/mL Urine Protein 1+ H (Negative) Urine Ketones 2+ H (Negative) Urine Bilirubin 1+ H (Negative) Hyaline Casts 6 H (0-2) /lpf Urine Mucus Many H (None) /hpf 03/14/19 Range/Units 14:27 WBC (3.8-10.6) k/uL Hgb (13.0-17.5) gm/dL Hct (39.0-53.0) % MCV (80.0-100.0) fL Neutrophils # (1.3-7.7) k/uL Chloride (98-107) mmol/L Carbon Dioxide (22-30) mmol/L Troponin I 0.039 H* (0.000-0.034) ng/mL Urine Protein (Negative) Urine Ketones (Negative) Urine Bilirubin (Negative) Hyaline Casts (0-2) /lpf Urine Mucus (None) /hpf Thrombosis Risk Factor Assmnt - Choose All That Apply Each Risk Factor Represents 2 Points: Age 61-74 years Thrombosis Risk Factor Assessment Total Risk Factor Score: 2 Thrombosis Risk Factor Assessment Level: Low Risk Assessment and Plan Assessment: Dizziness,with positive left nystagmus,possible vertigo, possible Mnire's disease dehydration Status post fall nearly 2 weeks ago,right frontal forehead hematoma recent colon resection secondary to diverticulitis Hypertension Ongoing nicotine dependence plan: Continue on current medication regime ,monitoring and symptomatic treatment. orthostatic vital signs every shift.Neurology and ENT consulted.MRI ordered. Maintain gentle IV fluid hydration. Prednisone taper.smoking cessation reinforced. The impression and plan of care has been dictated as directed. : I performed a history and examination of this patient, discussed the same with the dictator. I agree with the dictator's note ,documented as a scribe. Any additional findings or plans will be noted. <Aguilar Thurston Jr - Last Filed: 03/18/19 11:19> Physical Exam Osteopathic Statement: *. No significant issues noted on an osteopathic structural exam other than those noted in the History and Physical/Consult. Vitals: Vital Signs Temp Pulse Resp BP Pulse Ox 03/18/19 07:35 98.1 F 72 16 153/95 95 03/18/19 04:19 16 03/18/19 01:54 97.8 F 60 16 155/81 95 03/18/19 00:29 65 16 03/17/19 20:00 16 03/17/19 19:15 97.6 F 65 16 146/87 98 03/17/19 16:50 73 15 03/17/19 13:50 98.1 F 73 15 127/79 96 Intake and Output 03/17/19 03/18/19 03/18/19 22:59 06:59 14:59 Intake Total 350 Output Total 800 350 Balance -450 -350 Intake: Oral 350 Output: Urine 800 350 Other: Voiding Method Urinal Urinal Results CBC & Chem 7: 03/17/19 08:00 03/17/19 08:00 Labs: Abnormal Lab Results - Last 24 Hours (Table) 03/17/19 03/17/19 03/17/19 Range/Units 12:22 16:38 21:31 POC Glucose (mg/dL) 134 H 159 H 139 H (75-99) mg/dL 03/18/19 Range/Units 07:00 POC Glucose (mg/dL) 114 H (75-99) mg/dL
[2019-03-15] MEDS: INSULIN ASPART (NovoLOG) 100 UNIT/ML VIAL SQ SCH ×2 (17:31→20:17)
[2019-03-15] MEDS: predniSONE 20 MG TAB PO SCH (17:46)
[2019-03-15 20:17] LABS: Glucose,Whole Blood 123 mg/dL (75-99)
--- NOTE | 2019-03-15 21:01 | P.CNNES ---
History of Present Illness Consult date: 03/15/19 Reason for Consult: Dizziness Chief complaint: Dizziness History of Present Illness: HISTORY OF PRESENT ILLNESS: Thank you for allowing me to evaluate Mr. Cornel Miranda. Mr. Miranda is a 73 year-old man with PMhx of HTN, diverticulitis, who presented to [facility] after dizziness, fall and vertigo. Patient states that he's had issues with balance for a while. Yesterday, when patient was walking, he felt off balance and fell after which he started having extreme room-spinning sensation with all types of head movement. Patient denies ever having similar episodes of room-spinning. Reports headache where he fell and hit his head, and reports nausea but no vomiting. Denies double/blurry vision, weakness, numbness or tingling. denies recent sickness, fever, coughing, chest pain, SOB. Patient reports having had diarrhea for a long time, mainly from his diverticulitis, and recently had colon reconstruction surgery. PAST MEDICAL HISTORY: HTN, diverticulitis PAST SURGICAL HISTORY: Retinal detachment repair, colon reconstruction, heart catheterization with stent HOME MEDICATIONS: ASA, metoprolol, tamsulosin ALLERGIES: Venom-honey bee SOCIAL HISTORY: Current everyday smoker. Drinks daily. FAMILY HISTORY: Daughter had breast cancer REVIEW OF SYSTEMS: The 14 systems are reviewed and no additional points are identified compared to the review of systems documented history and physical PHYSICAL EXAMINATION: VITAL SIGNS: T 98.3 HR 95 RR 16 BP 100/65 O2 sat 94% on RA GEN.: NAD but very cautious when moving around, pleasant and cooperative HEENT: NCAT, sclera without icterus NECK: Supple SKIN AND EXTREMITIES: Warm to touch, no edema NEURO: MENTAL STATUS: Patient alert and oriented to self, place, time. Able to name the current president. Speech fluent, able to name and repeat, following all commands readily. No right and left disorientation, neglect. CRANIAL NERVES II THROUGH XII: II: Pupils are equal and reactive to light symmetrically. No afferent pupillary defect. Visual domingeuz are intact. III, IV, : No ptosis. Extraocular movements full. No nystagmus. V: Facial sensation intact from V1-3. VII. No clear facial asymmetry. VIII: Hearing intact to finger rub bilaterally. IX, X: Symmetric palate elevation. XI: Shoulder shrug intact. XII: Tongue midline without fasciculation or atrophy. MOTOR: Normal bulk/tone. No pronator drift or tremor. Strength is 5/5 throughout all 4 extremities. SENSORY: Intact to light touch, temperature, pinprick in all 4 extremities. REFLEXES: 2+ throughout. Toes are downgoing. COORDINATION: Finger to nose intact. No dysmetria. GAIT: deferred Oblong-Hallpike: positive when head turned to the right HINTS: negative DIAGNOSTIC TESTING: LABORATORY: WBC 11.9 Hgb 17.8 Platelet 231 Na 137 K 4.4 Cl 114 CO2 17 BUN 11 Cr 0.67 Glucose 81 AST 33 ALT 28 AlkPhos 82 troponin 0.039 urinalysis negative IMAGING: CT Head and c-spine w/o contrast 03/14/19: There is no acute fracture or dislocation evident in the c-spine. No acute intracranial hemorrhage or midline shift is seen. Margoth cute displaced facial bone fracture. Small acute R scalp hematoma superior to R frontal sinus. ASSESSMENT: 73 year-old man with PMhx of HTN, diverticulitis, who presented to [facility] after dizziness, fall and vertigo. Patient's exam findings consistent with benign paroxysmal positional vertigo, but patient reporting having some gait difficulty prior to this event. Patient with risk factors for stroke such as HTN, current tobacco user and age. Will obtain MRI brain w/o contrast and then consider further stroke work-up and management if MRI brain positive. RECOMMENDATIONS: 1. Vestibular rehab, but no PT at [facility] is skilled in vestibular rehab. Patient most likely will need outpatient PT. 2. Neurology will continue to follow Past Medical History Past Medical History: Hypertension Additional Past Medical History / Comment(s): ABD PAIN, HX OF DIVERTICULTIS. History of Any Multi-Drug Resistant Organisms: None Reported Past Surgical History: Heart Catheterization With Stent Additional Past Surgical History / Comment(s): RETINOL DETACHMENT REPAIR (6 ON LEFT, 1 ON RIGHT). colon reconstrucion Past Anesthesia/Blood Transfusion Reactions: No Reported Reaction Date of Last Stent Placement:: UNKNOWN DATE Past Psychological History: No Psychological Hx Reported Smoking Status: Current every day smoker Past Alcohol Use History: Daily Additional Past Alcohol Use History / Comment(s): SMOKES ABOUT 2-3 DAY, SINCE WAS AGE 23 YRS. Past Drug Use History: None Reported - Past Family History Daughter(s) Family Medical History: Cancer Additional Family Medical History / Comment(s): breast cancer Medications and Allergies Home Medications Medication Instructions Recorded Confirmed Type Aspirin EC [Ecotrin Low Dose] 81 mg PO DAILY 12/16/18 03/14/19 History HYDROcodone/APAP 5-325MG [[place] 1 tab PO TID PRN 12/16/18 03/14/19 History 5-325] Metoprolol Tartrate 25 mg PO QAM 12/16/18 03/14/19 History Ipratropium-Albuterol Nebulize 3 ml INHALATION RT-QID #120 02/22/19 03/14/19 Rx [Duoneb 0.5 mg-3 mg/3 ml Soln] ampul.neb Allergies Allergy/AdvReac Type Severity Reaction Status Date / Time venom-honey bee Allergy Anaphylaxis Verified 03/14/19 13:51 [bee venom (honey bee)] Physical Examination - Vital Signs Vital Signs: Vital Signs Temp Pulse Pulse Resp BP BP Pulse Ox 03/15/19 07:00 98.3 F 95 16 100/65 94 L 03/15/19 00:29 98.4 F 76 16 138/79 96 03/14/19 19:40 98 F 86 16 131/93 95 03/14/19 16:46 98.0 F 90 16 165/90 96 03/14/19 16:27 98 F 90 18 142/98 96 03/14/19 16:00 90 16 03/14/19 14:42 75 18 150/100 100 03/14/19 13:27 78 17 165/102 100 03/14/19 11:50 98 F 94 18 146/112 99 Intake and Output 03/14/19 03/15/19 03/15/19 22:59 06:59 14:59 Intake Total 150 Balance 150 Intake: Intake, IV Titration 150 Amount Sodium Chloride 0.9% 1, 150 000 ml @ 75 mls/hr IV . [id number] [facility] Rx#:[id number] Other: Weight 58.967 kg Results - Laboratory Findings CBC and BMP: 03/14/19 14:25 03/14/19 14:27 Abnormal Lab Findings: Abnormal Labs 03/14/19 03/14/19 03/14/19 13:30 14:25 14:27 WBC 11.9 H Hgb 17.8 H Hct 53.3 H MCV 103.6 H Neutrophils # 8.8 H Chloride 114 H Carbon Dioxide 17 L Troponin I Urine Protein 1+ H Urine Ketones 2+ H Urine Bilirubin 1+ H Hyaline Casts 6 H Urine Mucus Many H 03/14/19 14:27 WBC Hgb Hct MCV Neutrophils # Chloride Carbon Dioxide Troponin I 0.039 H* Urine Protein Urine Ketones Urine Bilirubin Hyaline Casts Urine Mucus
[2019-03-16] MEDS: ACETAMINOPHEN TAB 325 MG TAB PO PRN (05:35)
[2019-03-16] MEDS: SODIUM CHLORIDE 0.9% 1,000 ML IV SCH ×2 (05:36→23:02)
[2019-03-16 07:43] LABS: Glucose,Whole Blood 163 mg/dL (75-99)
[2019-03-16] MEDS: PANTOPRAZOLE 40 MG/10 ML VIAL IVP SCH (08:12)
[2019-03-16] MEDS: INSULIN ASPART (NovoLOG) 100 UNIT/ML VIAL SQ SCH ×4 (08:12→21:34)
[2019-03-16] MEDS: predniSONE 20 MG TAB PO SCH (08:12)
[2019-03-16] MEDS: NICOTINE 21MG/24HR PATCH TRANSDERM SCH (08:12)
[2019-03-16 10:00] LABS: HGB 16.1 gm/dL (13.0-17.5); MCH 34.4 pg (25.0-35.0); MCHC 32.9 g/dL (31.0-37.0); MCV 104.5 fL (80.0-100.0); Macrocytosis Slight; Mean Platelet Volume 7.9; Platelet Count 244 k/uL (150-450); RBC 4.69 m/uL (4.30-5.90); WBC 9.4 k/uL (3.8-10.6)
[2019-03-16 10:13] LABS: African American GFR (CKD) >90 (>60 ml/min/1.73 sqM); Anion Gap 6 mmol/L; Blood Urea Nitrogen 13 mg/dL (9-20); Calcium 9.4 mg/dL (8.4-10.2); Carbon Dioxide 23 mmol/L (22-30); Chloride 111 mmol/L (98-107); Glucose 139 mg/dL (74-99); Non-African American GFR(CKD) 89 (>60 ml/min/1.73 sqM); Potassium 4.4 mmol/L (3.5-5.1); Sodium 140 mmol/L (137-145)
[2019-03-16 11:57] LABS: Glucose,Whole Blood 147 mg/dL (75-99)
--- NOTE | 2019-03-16 13:37 | P.PN ---
Progress Note - Text Progress Note Date: 03/16/19 SUBJECTIVE/INTERVAL EVENTS: No acute overnight events. Cannot obtain MRI as patient had a major abdominal surgery 4 weeks. Must be 6 weeks after. Patient reports continued symptoms of vertigo when he sits up, stands up, or turns his head. He does not want to do the Mckinney-Hallpike/Álvaro maneuver at this time because he feels as though he would throw up as he just had lunch. Showed patient a video of Álvaro maneuver for patient to try on his own with RN assistance. PHYSICAL EXAMINATION: VITAL SIGNS: T 98.5 HR 81 RR 16 BP 121/79 O2 sat 96% on RA GEN.: NAD but very cautious when moving around, pleasant and cooperative HEENT: NCAT, sclera without icterus NECK: Supple SKIN AND EXTREMITIES: Warm to touch, no edema NEURO: MENTAL STATUS: Patient alert and oriented to self, place, time. Able to name the current president. Speech fluent, able to name and repeat, following all commands readily. No right and left disorientation, neglect. CRANIAL NERVES II THROUGH XII: II: Pupils are equal and reactive to light symmetrically. No afferent pupillary defect. Visual dominguez are intact. III, IV, : No ptosis. Extraocular movements full. No nystagmus. V: Facial sensation intact from V1-3. VII. No clear facial asymmetry. VIII: Hearing intact to finger rub bilaterally. IX, X: Symmetric palate elevation. XI: Shoulder shrug intact. XII: Tongue midline without fasciculation or atrophy. MOTOR: Normal bulk/tone. No pronator drift or tremor. Strength is 5/5 throughout all 4 extremities. SENSORY: Intact to light touch, temperature, pinprick in all 4 extremities. REFLEXES: 2+ throughout. Toes are downgoing. COORDINATION: Finger to nose intact. No dysmetria. GAIT: deferred Mckinney-Hallpike: positive when head turned to the right HINTS: negative DIAGNOSTIC TESTING: LABORATORY: WBC 11.9 Hgb 17.8 Platelet 231 Na 137 K 4.4 Cl 114 CO2 17 BUN 11 Cr 0.67 Glucose 81 AST 33 ALT 28 AlkPhos 82 troponin 0.039 urinalysis negative IMAGING: CT Head and c-spine w/o contrast 03/14/19: There is no acute fracture or dislocation evident in the c-spine. No acute intracranial hemorrhage or midline shift is seen. Margoth cute displaced facial bone fracture. Small acute R scalp hematoma superior to R frontal sinus. EKG 03/14/19: normal SR ASSESSMENT: 73 year-old man with PMhx of HTN, diverticulitis, who presented to [facility] after dizziness, fall and vertigo. Patient's exam findings consistent with benign paroxysmal positional vertigo, but patient reporting having some gait difficulty prior to this event. Patient with risk factors for stroke such as HTN, current tobacco user and age. Will obtain MRI brain w/o contrast and then consider further stroke work-up and management if MRI brain positive. Cannot obtain MRI as patient had a major abdominal surgery 4 weeks. Must be 6 weeks after. Patient reports continued symptoms of vertigo when he sits up, stands up, or turns his head. He does not want to do the Mckinney-Hallpike/Álvaro maneuver at this time because he feels as though he would throw up as he just had lunch. Showed patient a video of Álvaro maneuver for patient to try on his own with RN assistance. RECOMMENDATIONS: 1. Vestibular rehab, but no PT at [facility] is skilled in vestibular rehab. Patient most likely will need outpatient PT. 2. Neurology will sign off at this time. Please feel free to contact Neurology again if with additional questions or concerns.
[2019-03-16 16:48] LABS: Glucose,Whole Blood 177 mg/dL (75-99)
[2019-03-16] MEDS ORDERED: Magnesium Replacement Protocol 1 EACH MISC MISCELLANE PRN (17:25)
[2019-03-16] MEDS: ACETAMINOPHEN TAB 500 MG TAB PO SCH (17:53)
[2019-03-16] MEDS: methylPREDNISolone SOD SUCCI 125 MG/2 ML VIAL IV SCH (17:55)
[2019-03-16] MEDS ORDERED: 0.9% NACL WITH KCL 20 MEQ/L 1,000 ML with MVI, ADULT NO.4 WITH VIT K 10 ML, THIAMINE 10... IV ONE ×4 (18:00)
[2019-03-16] MEDS: SODIUM CHLORIDE 0.9% 250 ML IV SCH (18:19)
[2019-03-16 20:37] LABS: Glucose,Whole Blood 132 mg/dL (75-99)
[2019-03-16] MEDS ORDERED: TOPIRAMATE 25 MG TAB PO PRN (21:08)
[2019-03-17] MEDS: ACETAMINOPHEN TAB 500 MG TAB PO SCH ×4 (00:15→17:17)
[2019-03-17] MEDS: methylPREDNISolone SOD SUCCI 125 MG/2 ML VIAL IV SCH ×4 (00:16→17:18)
[2019-03-17] MEDS: SODIUM CHLORIDE 0.9% 250 ML IV SCH ×23 (06:51→23:34)
[2019-03-17 06:53] LABS: Glucose,Whole Blood 127 mg/dL (75-99)
[2019-03-17] MEDS: NICOTINE 21MG/24HR PATCH TRANSDERM SCH (06:53)
[2019-03-17] MEDS: INSULIN ASPART (NovoLOG) 100 UNIT/ML VIAL SQ SCH ×4 (06:58→22:38)
[2019-03-17 08:29] LABS: Basophils % (A) 0 %; Eosinophils % (A) 0 %; HCT 50.7 % (39.0-53.0); Lymphocytes # (A) 0.8 k/uL (1.0-4.8); Lymphocytes % (A) 7 %; MCH 34.3 pg (25.0-35.0); MCHC 33.5 g/dL (31.0-37.0); MCV 102.5 fL (80.0-100.0); Macrocytosis Slight; Mean Platelet Volume 7.8; Monocytes # (A) 0.4 k/uL (0-1.0); Monocytes % (A) 3 %; Neutrophils # (A) 10.1 k/uL (1.3-7.7); Neutrophils % (A) 89 %; Platelet Count 231 k/uL (150-450); RBC 4.95 m/uL (4.30-5.90); RDW 12.9 % (11.5-15.5); WBC 11.3 k/uL (3.8-10.6)
[2019-03-17] MEDS: PANTOPRAZOLE 40 MG/10 ML VIAL IVP SCH (08:46)
[2019-03-17] MEDS: MECLIZINE 25 MG TAB PO PRN (08:48)
[2019-03-17 08:50] LABS: African American GFR (CKD) >90 (>60 ml/min/1.73 sqM); Anion Gap 6 mmol/L; Blood Urea Nitrogen 9 mg/dL (9-20); Calcium 9.4 mg/dL (8.4-10.2); Carbon Dioxide 23 mmol/L (22-30); Chloride 108 mmol/L (98-107); Glucose 126 mg/dL (74-99); Magnesium 1.6 mg/dL (1.6-2.3); Non-African American GFR(CKD) >90 (>60 ml/min/1.73 sqM); Potassium 4.4 mmol/L (3.5-5.1); Sodium 137 mmol/L (137-145)
--- NOTE | 2019-03-17 12:17 | P.PN ---
Subjective Progress Note Date: 03/17/19 this is a 73-year-old gentleman with history of hypertension, recent colon resection secondary to diverticulitis, CAD, heart catheterization with stent, retinal detachment repair, ongoing nicotine dependence, and multiple other medical issues, presented to the ER status post fall with complaints of dizzine ss,status post fall. Reports approximately 10-12 days ago, as he was walking out of his bathroom, the cat ran between his legs and he tripped,hitting his face on the floor. Denies syncope. States he was being treated outpatientfor his "off balance". Over the last 5 days dizziness continued to worsen, not only upon arising but also upon turning his head from side to side.Positive left nystagmus noted during neuro examination.denies pain, complains of right forehead tenderness. Denies chest pain, palpitations or shortness of breath. Denies fever or chills. Denies abdominal pain. Denies nausea or vomiting or diarrhea. Afebrile,WBC 11.9, hemoglobin 17.8.EKG reported normal sinus rhythm, troponin 0.039. Vital signs stable, maintaining O2 sats in the 90s on room air.UA noted.chest x-ray reporting chronic emphysematous changes without acute pulmonary process.Head /cervical spine and face CTsreported no acute fracture or dislocation in the C-spine, no acute intracranial hemorrhage or midline shift, no acute displaced facial bone fracture, small acute right frontal scalp hematoma superior to right frontal sinus. 03/16/2019 yesterday he started on oral prednisone.reports minimal improvement in dizziness.evaluated by neurology with recommendations noted, including outpatient vestibular rehab. Denies chest pain, palpitations or shortness of breath. Denies nausea vomiting or diarrhea. Consuming 75% of diet.evaluated by an neurology, recommendations noted.afebrile. Objective - Vital Signs Vital signs: Vital Signs Temp 98.4 F 03/16/19 15:00 Pulse 95 03/16/19 15:00 Resp 17 03/16/19 15:00 BP 146/87 03/16/19 15:00 Pulse Ox 95 03/16/19 15:00 Intake & Output 03/15/19 03/16/19 03/16/19 18:59 06:59 18:59 Intake Total 236 1140 850 Balance 236 1140 850 Intake: Intake, IV Titration 900 600 Amount Sodium Chloride 0.9% 1, 900 600 000 ml @ 75 mls/hr IV . [id number] COUNTS INCLUDE 234 BEDS AT THE [facility] Rx#:[id number] Oral 236 240 250 Other: Voiding Method Urinal Urinal # Voids 1 1 2 - Exam VITAL SIGNS: [as above] GENERAL: sitting up in bed, no acute distress HEENT: Conjunctivae normal. eyes normal.right frontal hematoma, Right orbital ecchymosis, oral mucosa moist NECK: No JVD. No thyroid enlargement. No LNs CARDIOVASCULAR: S1, S2 regular.. No murmur RESPIRATION: Breath sounds diminished in the bases. No rhonchi or crackles. No wheezing. ABDOMEN: Soft, nontender .recent abdominal surgery, incision well approx imated, No guarding. no masses palpable.Bowel sounds heard. LEGS: No edema. no swelling PSYCHIATRY: Alert and oriented X3, mood and affect normal. NERVOUS SYSTEM: Cranial N 2-12 grossly normal. Moves all 4 limbs. No focal deficits. Strength and sensation grossly intact.. Skin: no rash - Labs CBC & Chem 7: 03/17/19 08:00 03/17/19 08:00 Labs: Abnormal Lab Results - Last 24 Hours (Table) 03/15/19 03/16/19 03/16/19 Range/Units 20:16 07:42 09:45 MCV 104.5 H (80.0-100.0) fL Chloride (98-107) mmol/L Glucose (74-99) mg/dL POC Glucose (mg/dL) 123 H 163 H (75-99) mg/dL 03/16/19 03/16/19 03/16/19 Range/Units 09:45 11:55 16:47 MCV (80.0-100.0) fL Chloride 111 H (98-107) mmol/L Glucose 139 H (74-99) mg/dL POC Glucose (mg/dL) 147 H 177 H (75-99) mg/dL Assessment and Plan Assessment: Dizziness,with positive left nystagmus,suspect BPV dehydration Status post fall nearly 2 weeks ago,right frontal forehead hematoma recent colon resection secondary to diverticulitis Hypertension Ongoing nicotine dependence alcohol use, reports wine consumption every other night mild protein calorie malnutrition, BMI 19.8 plan: Continue on current medication regime ,monitoring and symptomatic treatment. continue on Antivert. steroids changed to IV. IV fluid hydration including 250 mL bolus followed by a banana bag, then D5.45 at 75 an hour with close monitoring of pulmonary function.encouraged to increase oral water intake to minimal of 6 cups per day,recent colon surgery. C-collar ordered to simply restrict spontaneous rapid movements,decreasing dizziness.Pain management with Tylenol extra strength as ordered. Smoking cessation reinforced. The impression and plan of care has been dictated as directed. : I performed a history and examination of this patient, discussed the same with the dictator. I agree with the dictator's note ,documented as a scribe. Any additional findings or plans will be noted.
[2019-03-17 12:23] LABS: Glucose,Whole Blood 134 mg/dL (75-99)
--- NOTE | 2019-03-17 12:23 | P.PN ---
Subjective Progress Note Date: 03/17/19 this is a 73-year-old gentleman with history of hypertension, recent colon resection secondary to diverticulitis, CAD, heart catheterization with stent, retinal detachment repair, ongoing nicotine dependence, and multiple other medical issues, presented to the ER status post fall with complaints of dizzine ss,status post fall. Reports approximately 10-12 days ago, as he was walking out of his bathroom, the cat ran between his legs and he tripped,hitting his face on the floor. Denies syncope. States he was being treated outpatientfor his "off balance". Over the last 5 days dizziness continued to worsen, not only upon arising but also upon turning his head from side to side.Positive left nystagmus noted during neuro examination.denies pain, complains of right forehead tenderness. Denies chest pain, palpitations or shortness of breath. Denies fever or chills. Denies abdominal pain. Denies nausea or vomiting or diarrhea. Afebrile,WBC 11.9, hemoglobin 17.8.EKG reported normal sinus rhythm, troponin 0.039. Vital signs stable, maintaining O2 sats in the 90s on room air.UA noted.chest x-ray reporting chronic emphysematous changes without acute pulmonary process.Head /cervical spine and face CTsreported no acute fracture or dislocation in the C-spine, no acute intracranial hemorrhage or midline shift, no acute displaced facial bone fracture, small acute right frontal scalp hematoma superior to right frontal sinus. 03/16/2019 yesterday he started on oral prednisone.reports minimal improvement in dizziness.evaluated by neurology with recommendations noted, including outpatient vestibular rehab. Denies chest pain, palpitations or shortness of breath. Denies nausea vomiting or diarrhea. Consuming 75% of diet.evaluated by an neurology, recommendations noted.afebrile. 03/17/2019 steroids converted back to IV yesterday in addition to IV fluid hydration. Reports less dizziness moving From side to side, but otherwise continues to have the dizziness. Ambulating with physical therapy in hallway, tolerating well. Denies chest pain, palpitations or shortness of breath. Rony es headache ,reports generalized head pressure.MRI had been ordered by neurology, unable to have it completed secondary to recent surgery within the last 4 weeks.oral water intake 2 cups so far this morning. Objective - Vital Signs Vital signs: Vital Signs Temp 97.8 F 12/20/19 07:00 Pulse 76 03/17/19 07:00 Resp 15 03/17/19 07:00 BP 140/91 03/17/19 07:00 Pulse Ox 95 03/17/19 07:00 Intake & Output 03/16/19 03/17/19 03/17/19 18:59 06:59 18:59 Intake Total 850 100 120 Output Total 300 Balance 850 -200 120 Intake: Intake, IV Titration 600 Amount Sodium Chloride 0.9% 1, 600 000 ml @ 75 mls/hr IV . [id number] [facility] Rx#:[id number] Oral 250 100 120 Output: Urine 300 Other: Voiding Method Urinal # Voids 2 - Exam VITAL SIGNS: [as above] GENERAL: sitting up in bed, no acute distress HEENT: Conjunctivae normal. eyes normal.right frontal hematoma, Right orbital ecchymosis, oral mucosa moist NECK: No JVD. No thyroid enlargement. No LNs CARDIOVASCULAR: S1, S2 regular.. No murmur RESPIRATION: Breath sounds diminished in the bases. No rhonchi or crackles. No wheezing. ABDOMEN: Soft, nontender .recent abdominal surgery, incision well approximated, No guarding. no masses palpable.Bowel sounds heard. LEGS: No edema. no swelling PSYCHIATRY: Alert and oriented X3, mood and affect normal. NERVOUS SYSTEM: Cranial N 2-12 grossly normal. Moves all 4 limbs. No focal deficits. Strength and sensation grossly intact.. Skin: no rash - Labs CBC & Chem 7: 03/17/19 08:00 03/17/19 08:00 Labs: Abnormal Lab Results - Last 24 Hours (Table) 03/16/19 03/16/19 03/17/19 Range/Units 16:47 20:35 06:52 WBC (3.8-10.6) k/uL MCV (80.0-100.0) fL Neutrophils # (1.3-7.7) k/uL Lymphocytes # (1.0-4.8) k/uL Chloride (98-107) mmol/L Glucose (74-99) mg/dL POC Glucose (mg/dL) 177 H 132 H 127 H (75-99) mg/dL 03/17/19 03/17/19 Range/Units 08:00 08:00 WBC 11.3 H (3.8-10.6) k/uL MCV 102.5 H (80.0-100.0) fL Neutrophils # 10.1 H (1.3-7.7) k/uL Lymphocytes # 0.8 L (1.0-4.8) k/uL Chloride 108 H (98-107) mmol/L Glucose 126 H (74-99) mg/dL POC Glucose (mg/dL) (75-99) mg/dL Assessment and Plan Assessment: Dizziness,with positive left nystagmus,suspect BPV dehydration Status post fall nearly 2 weeks ago,right frontal forehead hematoma recent colon resection secondary to diverticulitis Hypertension Ongoing nicotine dependence alcohol use, reports wine consumption every other night mild protein calorie malnutrition, BMI 19.8 plan: Continue on current medication regime ,monitoring and symptomatic treatment. maintain IV fluid hydration,IV steroids, Antivert. continue to encourage oral water intake to minimal of 6 cups per day,recent colon surgery. C-collar not yet on patient, discussed with RN-being obtained.Smoking cessation reinforced.discharge planning in progress for tomorrow, pending continued improvement. The impression and plan of care has been dictated as directed. : I performed a history and examination of this patient, discussed the same with the dictator. I agree with the dictator's note ,documented as a scribe. Any additional findings or plans will be noted.
[2019-03-17] MEDS: DEXTROSE 5%-0.45% NACL 1,000 ML IV SCH ×2 (13:09→21:22)
[2019-03-17 16:40] LABS: Glucose,Whole Blood 159 mg/dL (75-99)
[2019-03-17 20:12] VITALS: RESP 16
[2019-03-17] MEDS: SODIUM CHLORIDE 0.9% 1,000 ML IV SCH ×2 (21:20→22:38)
[2019-03-17 21:43] LABS: Glucose,Whole Blood 139 mg/dL (75-99)
[2019-03-18] MEDS: methylPREDNISolone SOD SUCCI 125 MG/2 ML VIAL IV SCH ×3 (00:03→12:23)
[2019-03-18] MEDS: ACETAMINOPHEN TAB 500 MG TAB PO SCH ×3 (05:49→12:23)
[2019-03-18 07:12] LABS: Glucose,Whole Blood 114 mg/dL (75-99)
[2019-03-18] MEDS: INSULIN ASPART (NovoLOG) 100 UNIT/ML VIAL SQ SCH ×2 (08:17→12:27)
[2019-03-18] MEDS: PANTOPRAZOLE 40 MG/10 ML VIAL IVP SCH (08:50)
[2019-03-18] MEDS: NICOTINE 21MG/24HR PATCH TRANSDERM SCH (09:02)
[2019-03-18] MEDS: DEXTROSE 5%-0.45% NACL 1,000 ML IV SCH (09:03)
--- NOTE | 2019-03-18 11:26 | P.DS ---
Providers Date of admission: 03/16/19 10:07 Expected date of discharge: 03/18/19 Attending physician: Aguilar Thurston Consults: 03/14/19 15:11 Consult Physician Urgent Consulting Provider: Gaby Gonzalez Consult Reason/Comments: dizziness Do you want consulting provider notified?: Yes 03/15/19 15:22 Consult Physician Routine Consulting Provider: Tony Andino Consult Reason/Comments: vertigo,meniere's Do you want consulting provider notified?: Yes Primary care physician: Aguilar Thurston Assessment: patient was admitted with dehydration, severe benign positional vertigo General: [Patient awake, alert and oriented times 3. Patient in no acute distress.] HEENT: [PERRL. EOMI. No pharyngeal erythema or exudate.] Neck: [No adenopathy.] Cardiac: [Heart regular in rate and rhythm. No S3. No S4. No clicks, rubs. No murmur.] Lungs: [Clear to auscultation bilaterally.] Abdomen: [No mass. No organomegaly. Bowel sounds presnt and normoactive in all 4 quadrants.] mid low abdominal incision, well-healed recent bowel resection Extremes: [No edema no cyanosis no claudication normal pulses] : [] Musculoskeletal: [No joint erythema, edema or tenderness.] Skin: [No rash.] Neurologic: [No lateralizing deficits. CN II - XII grossly intact.] Lymphatic: [No adenopathy.] Patient Condition at Discharge: Good Plan - Discharge Summary Discharge Rx Participant: Yes New Discharge Prescriptions: New RX: predniSONE 50 mg PO DAILY #7 tab No Action RX: Metoprolol Tartrate 25 mg PO QAM RX: HYDROcodone/APAP 5-325MG [[place] 5-325] 1 tab PO TID PRN PRN Reason: BACK PAIN RX: Aspirin EC [Ecotrin Low Dose] 81 mg PO DAILY RX: Ipratropium-Albuterol Nebulize [Duoneb 0.5 mg-3 mg/3 ml Soln] 3 ml INHALATION RT-QID #120 ampul.neb Discharge Medication List RX: Aspirin EC [Ecotrin Low Dose] 81 mg PO DAILY 12/16/18 [History] RX: HYDROcodone/APAP 5-325MG [[place] 5-325] 1 tab PO TID PRN 12/16/18 [History] RX: Metoprolol Tartrate 25 mg PO QAM 12/16/18 [History] RX: Ipratropium-Albuterol Nebulize [Duoneb 0.5 mg-3 mg/3 ml Soln] 3 ml I NHALATION RT-QID #120 ampul.neb 02/22/19 [Rx] RX: predniSONE 50 mg PO DAILY #7 tab 03/18/19 [Rx] Follow up Appointment(s)/Referral(s): Aguilar Thurston Jr, [Primary Care Provider] - 1-2 days [facility], [NON-STAFF] - As Needed
[2019-03-18] MEDS: SODIUM CHLORIDE 0.9% 1,000 ML IV SCH (12:28)
[2019-03-18 15:01] VITALS: BP 136/88; PULSE 68; TEMP 98.3
[2019-03-19] MEDS ORDERED: PANTOPRAZOLE 40 MG TABLET PO SCH (09:00)
== END 2019-03-18 15:22 | disposition home health service (06) | DRG 641 ==
LOC: EC 11:49 → 4SSUR 15:33 → INTOOBSV 15:33 → OBSVTOIN 03-16 10:07
PROVIDERS: ADMIT Family Medicine; ATTEND Family Medicine
DX: E86.0 Dehydration (principal); E44.1 Mild protein-calorie malnutrition; Z68.1 Body mass index [BMI] 19.9 or less, adult; H81.10 Benign paroxysmal vertigo, unspecified ear; I10 Essential (primary) hypertension; H55.00 Unspecified nystagmus; F17.200 Nicotine dependence, unspecified, uncomplicated; I25.10 Atherosclerotic heart disease of native coronary artery without angina pectoris; Z79.82 Long term (current) use of aspirin; Z80.3 Family history of malignant neoplasm of breast
CPT/HCPCS: 36415; 70450; 70486; 71046; 72125; 80048; 80053; 81001; 83690; 83735; 84484; 85025; 85027; 93005; 96361; 96374; 96375; 99285

== ENCOUNTER → 2019-03-30 | Outpatient (CLI) | payer MEDICARE, BC ==
--- NOTE | 2019-03-31 04:13 | CT ---
EXAMINATION TYPE: CT cervical spine wo con DATE OF EXAM: 03/30/2019 COMPARISON: 03/14/2019 HISTORY: 73-year-old male Neck pain after fall x3 weeks ago. TECHNIQUE: Contiguous axial scanning of the cervical spine without IV contrast. Coronal and sagittal reconstructions performed. CT DLP: 452 mGycm Automated exposure control for dose reduction was used. FINDINGS: No craniocervical junction abnormality, predental space widening, or prevertebral soft tissue swellin g. Straightening of the normal cervical lordosis. Grade 1 retrolisthesis at C6-C7 and grade 1 anterolisthesis at C7-T1 are unchanged from prior. Severe disc/endplate degenerative change from C4 through C7 levels with loss of disc height, endplate sclerosis, disc osteophyte complex formation are redemonstrated. Disc osteophyte complex results in mild narrowing of the spinal canal at C5-C6 and C6-C7. Multilevel facet and uncovertebral joint arthropathy is present. No acute fracture seen of the cervical spine. Moderate bilateral neuroforaminal stenoses at C4-C5, moderate to severe on the right at C5-C6, modera te to severe on both sides at C6-C7. IMPRESSION: 1. MULTILEVEL FACET AND UNCOVERTEBRAL JOINT ARTHROPATHY WITH STABLE GRADE 1 SPONDYLOLISTHESES AT C6-C 7 AND C7-T1. 2. 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 3. VARIABLE NEURAL FORAMINAL STENOSES OUTLINED ABOVE, MODERATE TO SEVERE ON THE RIGHT AT C5-C6 AND MODERATE TO SEVERE ON BOTH SIDES AT C6-C7.
== END | disposition home or self-care (01) ==
LOC: RADCTMAIN 15:18
PROVIDERS: ATTEND Family Medicine
DX: M48.02 Spinal stenosis, cervical region (principal); M50.322 Other cervical disc degeneration at C5-C6 level
CPT/HCPCS: 72125

== ENCOUNTER → 2019-10-16 | Outpatient (CLI) | payer MEDICARE, BC ==
--- NOTE | 2019-10-17 08:03 | US ---
EXAMINATION TYPE: US carotid duplex BILAT DATE OF EXAM: 10/16/2019 COMPARISON: NONE CLINICAL HISTORY: 74-year-old male R55 SYNCOPE. Multiple syncopal episodes, h/o TIA's TECHNIQUE: Carotid duplex ultrasound examination. Indirect Doppler criteria is utilized. FINDINGS: EXAM MEASUREMENTS: RIGHT: Peak Systolic Velocity (PSV) cm/sec ----- Right CCA: 59.9 ----- Right ICA: 79.1 ----- Right ECA: 114.3 ICA/CCA ratio: 1.3 RIGHT: End Diastole cm/sec ----- Right CCA: 23.7 ----- Right ICA: 32.8 ----- Right ECA: 21.1 LEFT: Peak Systolic Velocity (PSV) cm/sec ----- Left CCA: 70.7 ----- Left ICA: 65.0 ----- Left ECA: 76.2 ICA/CCA ratio: 0.9 LEFT: End Diastole cm/sec ----- Left CCA: 25.8 ----- Left ICA: 28.7 ----- Left ECA: 22.9 VERTEBRALS (direction of flow): Right Vertebral: Antegrade Left Vertebral: Antegrade Rhythm: Normal Sonography notes: Heterogeneous plaque bilaterally with no significant stenosis seen. IMPRESSION: No hemodynamically significant internal carotid artery stenosis on either side. Moderate atherosclero tic change at both bifurcations. Criteria for Assigning % of Stenosis / Diameter reduction (Estimation based on the indirect measurements of the internal carotid artery velocities (ICA PSV). 1. Normal (no stenosis)=ICA PSV < 125 cm/s: ratio < 2.0: ICA EDV<40 cm/s. 2. Less than 50% stenosis=ICA PSV < 125 cm/s: ratio < 2.0: ICA EDV<40 cm/s. 3. 50 to 69% stenosis=ICA PSV of 125 to 230 cm/s: ration 2.0 ? 4.0: ICA EDV 40-100 cm/s. 4. Greater than 70% stenosis to near occlusion= ICA PSV > 230 cm/s: ratio > 4.0: ICA EDV > 100 cm/s. 5. Near occlusion= ICA PSV velocities may be low or undetectable: variable ratio and ICA EDV. 6. Total occlusion=unable to detect flow.
== END | disposition home or self-care (01) ==
LOC: RADUSWWP 15:29
PROVIDERS: ATTEND Family Medicine
DX: R55 Syncope and collapse (principal)
CPT/HCPCS: 93880

== ENCOUNTER 2020-02-02 13:26 | Inpatient (IN) | payer MEDICARE, BC ==
[2020-02-02] MEDS ORDERED: SODIUM CHLORIDE 0.9% 1,000 ML IV STA ×2 (14:50)
[2020-02-02] MEDS ORDERED: SODIUM CHLORIDE 0.9% 500 ML 500 ML IV STA (14:50)
--- NOTE | 2020-02-02 14:51 | ED ---
Weakness HPI - General Chief complaint: Nausea/Vomiting/Diarrhea Stated complaint: concussion, headache, confusion Time Seen by Provider: 02/02/20 14:50 Source: patient, RN notes reviewed, old records reviewed Mode of arrival: wheelchair Limitations: no limitations - History of Present Illness Initial comments: this 74-year-old male DF for evaluation patient resents today as a send in by primary care for dizziness weakness likely dehydration left foot abnormalities. Patient has ectopic. Medical history of similar medical problems. Patient himself aside from complaining of dizziness complains of some inability to stand some loss of balance. MD Complaint: generalized weakness, lack of energy, difficulty walking -: unknown Location: generalized Severity: moderate Severity scale (1-10): 5 Quality: constant Consistency: intermittent Improves with: none Worsens with: movement Context: history of similar Associated Symptoms: denies other symptoms - Related Data Home Medications Medication Instructions Recorded Confirmed Metoprolol Tartrate 12.5 mg PO DAILY 12/16/18 02/02/20 Acetaminophen-Codeine 300-30mg 2 tab PO Q8H PRN 02/02/20 02/02/20 [Tylenol w/codeine #3] DULoxetine HCL [Cymbalta] 30 mg PO DAILY 02/02/20 02/02/20 EPINEPHrine (Auto Inject) [Epipen] 0.3 mg IM ONCE PRN 02/02/20 02/02/20 Nitroglycerin Sl Tabs [Nitrostat] 0.4 mg SL Q5M PRN 02/02/20 02/02/20 Allergies Allergy/AdvReac Type Severity Reaction Status Date / Time venom-honey bee Allergy Anaphylaxis Verified 02/02/20 16:57 [bee venom (honey bee)] Review of Systems ROS Statement: Those systems with pertinent positive or pertinent negative responses have been documented in the HPI. ROS Other: All systems not noted in ROS Statement are negative. Past Medical History Past Medical History: Hypertension Additional Past Medical History / Comment(s): ABD PAIN, HX OF DIVERTICULTIS. History of Any Multi-Drug Resistant Organisms: None Reported Past Surgical History: Heart Catheterization With Stent Additional Past Surgical History / Comment(s): RETINOL DETACHMENT REPAIR (6 ON LEFT, 1 ON RIGHT). colon reconstrucion Past Anesthesia/Blood Transfusion Reactions: No Reported Reaction Date of Last Stent Placement:: UNKNOWN DATE Past Psychological History: No Psychological Hx Reported Smoking Status: Current every day smoker Past Alcohol Use History: Daily Past Drug Use History: None Reported - Past Family History Daughter(s) Family Medical History: Cancer Additional Family Medical History / Comment(s): breast cancer General Exam Limitations: no limitations General appearance: alert, in no apparent distress Head exam: Present: atraumatic, normocephalic, normal inspection Eye exam: Present: normal appearance, PERRL, EOMI. Absent: scleral icterus, conjunctival injection, periorbital swelling ENT exam: Present: normal exam, mucous membranes moist Neck exam: Present: normal inspection. Absent: tenderness, meningismus, lymphadenopathy Respiratory exam: Present: normal lung sounds bilaterally. Absent: respiratory distress, wheezes, rales, rhonchi, stridor Cardiovascular Exam: Present: regular rate, normal rhythm, normal heart sounds. Absent: systolic murmur, diastolic murmur, rubs, gallop, clicks GI/Abdominal exam: Present: soft, normal bowel sounds. Absent: distended, tenderness, guarding, rebound, rigid Extremities exam: Present: normal inspection, full ROM, normal capillary refill. Absent: tenderness, pedal edema, joint swelling, calf tenderness Back exam: Present: normal inspection Neurological exam: Present: alert, oriented X3, CN II-XII intact Psychiatric exam: Present: normal affect, normal mood Skin exam: Present: warm, dry, intact, normal color. Absent: rash Course Vital Signs 02/02/20 02/02/20 02/02/20 13:34 17:41 18:52 Temperature 97.8 F Pulse Rate 66 77 81 Respiratory 18 16 18 Rate Blood Pressure 121/84 109/80 117/82 O2 Sat by Pulse 98 99 97 Oximetry - Reevaluation(s) Reevaluation #1: 02/02/20 20:42 medical records reviewed Reevaluation #2: 02/02/20 20:42 patient is feeling better here in the ER - Consultations Consultation #1: spoke Dr. Yeager who agrees to admit this patient EKG Findings - EKG Comments: EKG Findings:: EKG is sinus rhythm 78, MA 132 QRS 92 QTC 446 Medical Decision Making - Medical Decision Making 74 male severe dizziness we'll admit for vitamin replacement hydration and evaluation, monitoring - Lab Data Result diagrams: 02/02/20 15:12 02/02/20 15:12 Lab Results 02/02/20 02/02/20 02/02/20 Range/Units 15:12 15:12 15:12 WBC 8.5 (3.8-10.6) k/uL RBC 4.81 (4.30-5.90) m/uL Hgb 16.4 (13.0-17.5) gm/dL Hct 49.5 (39.0-53.0) % MCV 102.9 H (80.0-100.0) fL MCH 34.1 (25.0-35.0) pg MCHC 33.1 (31.0-37.0) g/dL RDW 12.6 (11.5-15.5) % Plt Count 213 (150-450) k/uL Neutrophils % 68 % Lymphocytes % 19 % Monocytes % 8 % Eosinophils % 2 % Basophils % 1 % Neutrophils # 5.8 (1.3-7.7) k/uL Lymphocytes # 1.6 (1.0-4.8) k/uL Monocytes # 0.7 (0-1.0) k/uL Eosinophils # 0.2 (0-0.7) k/uL Basophils # 0.1 (0-0.2) k/uL Macrocytosis Slight APTT 24.2 (22.0-30.0) sec Sodium 133 L (137-145) mmol/L Potassium 4.4 (3.5-5.1) mmol/L Chloride 105 (98-107) mmol/L Carbon Dioxide 23 (22-30) mmol/L Anion Gap 5 mmol/L BUN 16 (9-20) mg/dL Creatinine 0.88 (0.66-1.25) mg/dL Est GFR (CKD-EPI)AfAm >90 (>60 ml/min/1.73 sqM) Est GFR (CKD-EPI)NonAf 86 (>60 ml/min/1.73 sqM) Glucose 104 H (74-99) mg/dL Plasma Lactic Acid Chano (0.7-2.0) mmol/L Calcium 9.0 (8.4-10.2) mg/dL Phosphorus 3.6 (2.5-4.5) mg/dL Magnesium 1.7 (1.6-2.3) mg/dL Total Bilirubin 0.7 (0.2-1.3) mg/dL AST 26 (17-59) U/L ALT 16 (4-49) U/L Alkaline Phosphatase 76 (38-126) U/L Creatine Kinase 34 L (55-170) U/L Troponin I (0.000-0.034) ng/mL Total Protein 6.7 (6.3-8.2) g/dL Albumin 3.7 (3.5-5.0) g/dL Urine Color Urine Appearance (Clear) Urine pH (5.0-8.0) Ur Specific [place] (1.001-1.035) Urine Protein (Negative) Urine Glucose (UA) (Negative) Urine Ketones (Negative) Urine Blood (Negative) Urine Nitrite (Negative) Urine Bilirubin (Negative) Urine Urobilinogen (<2.0) mg/dL Ur Leukocyte Esterase (Negative) Serum Alcohol <10 mg/dL 02/02/20 02/02/20 02/02/20 Range/Units 15:12 15:12 17:39 WBC (3.8-10.6) k/uL RBC (4.30-5.90) m/uL Hgb (13.0-17.5) gm/dL Hct (39.0-53.0) % MCV (80.0-100.0) fL MCH (25.0-35.0) pg MCHC (31.0-37.0) g/dL RDW (11.5-15.5) % Plt Count (150-450) k/uL Neutrophils % % Lymphocytes % % Monocytes % % Eosinophils % % Basophils % % Neutrophils # (1.3-7.7) k/uL Lymphocytes # (1.0-4.8) k/uL Monocytes # (0-1.0) k/uL Eosinophils # (0-0.7) k/uL Basophils # (0-0.2) k/uL Macrocytosis APTT (22.0-30.0) sec Sodium (137-145) mmol/L Potassium (3.5-5.1) mmol/L Chloride (98-107) mmol/L Carbon Dioxide (22-30) mmol/L Anion Gap mmol/L BUN (9-20) mg/dL Creatinine (0.66-1.25) mg/dL Est GFR (CKD-EPI)AfAm (>60 ml/min/1.73 sqM) Est GFR (CKD-EPI)NonAf (>60 ml/min/1.73 sqM) Glucose (74-99) mg/dL Plasma Lactic Acid Chano 1.1 (0.7-2.0) mmol/L Calcium (8.4-10.2) mg/dL Phosphorus (2.5-4.5) mg/dL Magnesium (1.6-2.3) mg/dL Total Bilirubin (0.2-1.3) mg/dL AST (17-59) U/L ALT (4-49) U/L Alkaline Phosphatase (38-126) U/L Creatine Kinase (55-170) U/L Troponin I <0.012 (0.000-0.034) ng/mL Total Protein (6.3-8.2) g/dL Albumin (3.5-5.0) g/dL Urine Color Yellow Urine Appearance Clear (Clear) Urine pH 5.5 (5.0-8.0) Ur Specific [place] 1.008 (1.001-1.035) Urine Protein Negative (Negative) Urine Glucose (UA) Negative (Negative) Urine Ketones Negative (Negative) Urine Blood Negative (Negative) Urine Nitrite Negative (Negative) Urine Bilirubin Negative (Negative) Urine Urobilinogen <2.0 (<2.0) mg/dL Ur Leukocyte Esterase Negative (Negative) Serum Alcohol mg/dL - Radiology Data Radiology results: report reviewed (DT brain negative for acute disease), image reviewed Disposition Clinical Impression: Dehydration, Syncope, Dizziness Disposition: ADMITTED IP TO THIS [facility] Condition: Fair Is patient prescribed a controlled substance at d/c from ED?: No
[2020-02-02 15:36] LABS: Basophils # (A) 0.1 k/uL (0-0.2); Basophils % (A) 1 %; Eosinophils # (A) 0.2 k/uL (0-0.7); Eosinophils % (A) 2 %; HCT 49.5 % (39.0-53.0); HGB 16.4 gm/dL (13.0-17.5); Lymphocytes # (A) 1.6 k/uL (1.0-4.8); Lymphocytes % (A) 19 %; MCH 34.1 pg (25.0-35.0); MCHC 33.1 g/dL (31.0-37.0); MCV 102.9 fL (80.0-100.0); Macrocytosis Slight; Mean Platelet Volume 7.6; Monocytes # (A) 0.7 k/uL (0-1.0); Monocytes % (A) 8 %; Neutrophils # (A) 5.8 k/uL (1.3-7.7); Neutrophils % (A) 68 %; Platelet Count 213 k/uL (150-450); RBC 4.81 m/uL (4.30-5.90); RDW 12.6 % (11.5-15.5); WBC 8.5 k/uL (3.8-10.6)
[2020-02-02 15:50] LABS: ALT 16 U/L (4-49); AST 26 U/L (17-59); African American GFR (CKD) >90 (>60 ml/min/1.73 sqM); Albumin 3.7 g/dL (3.5-5.0); Alcohol <10 mg/dL; Alkaline Phosphatase 76 U/L (38-126); Anion Gap 5 mmol/L; Blood Urea Nitrogen 16 mg/dL (9-20); Carbon Dioxide 23 mmol/L (22-30); Chloride 105 mmol/L (98-107); Creatine Kinase 34 U/L (55-170); Glucose 104 mg/dL (74-99); Magnesium 1.7 mg/dL (1.6-2.3); Non-African American GFR(CKD) 86 (>60 ml/min/1.73 sqM); Phosphorus 3.6 mg/dL (2.5-4.5); Potassium 4.4 mmol/L (3.5-5.1); Sodium 133 mmol/L (137-145); Total Bilirubin 0.7 mg/dL (0.2-1.3); Total Protein 6.7 g/dL (6.3-8.2)
--- NOTE | 2020-02-02 16:01 | CT ---
EXAMINATION TYPE: CT brain wo con DATE OF EXAM: 02/02/2020 COMPARISON: Prior CT brain 03/14/2019 HISTORY: weakness CT DLP: 1036.4 mGycm Automated exposure control for dose reduction was used. Helical imaging through the brain. FINDINGS: There is no significant interval change. Cerebral vascular calcifications are present. No hemorrhage or hydrocephalus. Calvarium is intact. Minimal fluid attenuation present within the right mastoids. O rbits show a symmetric appearance. There is cortical atrophy. Periventricular white matter shows patc hy low attenuation. IMPRESSION: NO ACUTE ABNORMALITY. AGE-RELATED CHANGES OF ATROPHY AND CHRONIC SMALL VESSEL ISCHEMIA.
[2020-02-02 17:52] LABS: Appearance,Urine Clear (Clear); Bilirubin,Urine Negative (Negative); Blood,Urine Negative (Negative); Color,Urine Yellow; Glucose,Urine (UA) Negative (Negative); Ketones,Urine Negative (Negative); Leukocyte Esterase,Urine Negative (Negative); Nitrite,Urine Negative (Negative); PH, Urine 5.5 (5.0-8.0); Protein,Urine Negative (Negative); Specific Gravity,Urine 1.008 (1.001-1.035); Urobilinogen,Urine <2.0 mg/dL (<2.0)
[2020-02-02] MEDS ORDERED: MORPHINE SULFATE 4 MG/ML SYRINGE IVP STA (18:12)
[2020-02-02] MEDS ORDERED: LORazepam 2 MG/ML INJ IV PRN ×3 (18:28)
[2020-02-02] MEDS ORDERED: SODIUM CHLORIDE 0.9% 1,000 ML IV ONE (18:28)
[2020-02-02] MEDS ORDERED: THIAMINE 200 MG in SODIUM CHLORIDE 0.9% 50 ML IVPB STA (18:29)
[2020-02-02] MEDS ORDERED: ONDANSETRON 4 MG/2 ML VIAL IVP STA (18:30)
[2020-02-02] MEDS ORDERED: DEXTROSE 5%-0.45% NACL 1,000 ML IV ONE (18:30)
[2020-02-02] MEDS ORDERED: DIAZEPAM 5 MG/ML 2 ML INJ IVP STA (18:30)
[2020-02-02] MEDS ORDERED: DULoxetine HCL 30 MG CAPSULE.DR PO SCH (22:45)
[2020-02-03] MEDS: MORPHINE SULFATE 4 MG/ML SYRINGE IVP PRN ×3 (01:02→13:52)
[2020-02-03] MEDS: THIAMINE 200 MG in SODIUM CHLORIDE 0.9% 100 ML IVPB SCH ×2 (08:03→19:50)
[2020-02-03] MEDS: ONDANSETRON 4 MG/2 ML VIAL IVP PRN (08:03)
[2020-02-03] MEDS: DULoxetine HCL 30 MG CAPSULE.DR PO SCH (08:04)
[2020-02-03] MEDS ORDERED: HYDROCORTISONE SUCCINATE 100 MG/2 ML VIAL IV STA (12:34)
[2020-02-03] MEDS ORDERED: SODIUM CHLORIDE 0.9% 1,000 ML with MVI, ADULT NO.4 WITH VIT K 10 ML, THIAMINE 100 MG, F... IV ONE ×4 (12:36)
[2020-02-03] MEDS ORDERED: SCOPOLAMINE 1.5MG/72HR PATCH TRANSDERM SCH (13:00)
[2020-02-03 13:40] VITALS: BMI 19.8
[2020-02-03] MEDS: SODIUM CHLORIDE 0.9% 1,000 ML IV SCH ×2 (13:50→19:50)
[2020-02-03] MEDS: HYDROCORTISONE SUCCINATE 100 MG/2 ML VIAL IV SCH (17:31)
[2020-02-03] MEDS ORDERED: DULoxetine HCL 30 MG CAPSULE.DR PO SCH (22:45)
[2020-02-04] MEDS: HYDROCORTISONE SUCCINATE 100 MG/2 ML VIAL IV SCH ×5 (00:04→23:15)
[2020-02-04] MEDS: SODIUM CHLORIDE 0.9% 1,000 ML IV SCH ×4 (05:15→23:57)
[2020-02-04] MEDS: METOPROLOL TARTRATE 12.5 MG TAB PO SCH (07:30)
[2020-02-04] MEDS: THIAMINE 200 MG in SODIUM CHLORIDE 0.9% 100 ML IVPB SCH ×2 (07:30→20:28)
[2020-02-04] MEDS: DULoxetine HCL 30 MG CAPSULE.DR PO SCH (07:30)
[2020-02-04] MEDS: MORPHINE SULFATE 4 MG/ML SYRINGE IVP PRN (09:32)
[2020-02-04] MEDS: ONDANSETRON 4 MG/2 ML VIAL IVP PRN (09:32)
[2020-02-04] MEDS ORDERED: MECLIZINE 25 MG TAB PO PRN (10:45)
--- NOTE | 2020-02-04 11:14 | P.PN ---
Subjective Progress Note Date: 02/04/20 Principal diagnosis: Benign positional vertigo, dehydration, unsteady gait Since presented to the emergency room with nausea vomiting unsteady gait dehydration, this patient is known patient to me a valvular alcohol consumer approximately half of wine daily. Approximately 2 years ago patient underwent bowel resection for severe diverticulitis and has a short segment of colon, he has been made aware that he requires profound hydration daily and needs to drink water 6-7 12 ounce bottles daily, patient states that he cut back his wine consumption since his surgery to one glass daily. Patient states he hasn't drank or eaten since Wednesday when he started becoming ill. He states he drove down to [facility] to visit his daughter who is currently undergoing radiation therapy for carcinoma of the breast. Patient states he was taking food to his daughter, about skilled nursing to her home he began throwing up in his vehicle. He turned around and came home and has been there since. Patient desires fever denies cough denies dyspnea complaints simply of vertigo and nause a vomiting and headache. Objective - Vital Signs Vital signs: Vital Signs Temp 98.1 F 02/04/20 07:29 Pulse 76 02/04/20 07:29 Resp 16 02/04/20 07:29 BP 126/79 02/04/20 07:29 Pulse Ox 97 02/04/20 07:29 Intake & Output 02/03/20 02/04/20 02/04/20 18:59 06:59 18:59 Intake Total 997 420 5250 Output Total 350 150 Balance 644 989 6318 Weight 58.967 kg Intake: Intake, IV Titration 665 136 8103 Amount Sodium Chloride 0.9% 1, 150 1200 000 ml @ 150 mls/hr IV . Q6H40M REPLACED BY [facility] Rx#:[id number] Sodium Chloride 0.9% 1, 350 500 000 ml @ 150 mls/hr IV . Q6H45M ONE with Mvi, Adult No.4 with Vit K 10 ml with Thiamine 100 mg with Folic Acid 1 mg Rx#: [id number] Thiamine 200 mg In Sodium 100 100 Chloride 0.9% 100 ml @ 200 mls/hr IVPB Q12HR [facility] Rx#:[id number] Oral 90 580 Output: Urine 350 150 Other: Voiding Method Urinal Urinal Urinal # Voids 2 2 - Exam General: [Patient awake, alert and oriented times 3. Patient in no acute distress. Patient is cachectic and has looked that way since I met him 25 yrs ago Chronic smoker states he currently smokes 6-8 cigarettes a day states he only drinks 1 glass of wine a day HEENT: [PERRL. EOMI. No pharyngeal erythema or exudate.] Neck: [No adenopathy.] Cardiac: [Heart regular in rate and rhythm. No S3. No S4. No clicks, rubs. No murmur.] Lungs: [Clear to auscultation bilaterally.] Abdomen: [No mass. No organomegaly. Bowel sounds presnt and normoactive in all 4 quadrants.] Mild diffuse tenderness Extremes: [No edema no cyanosis no claudication normal pulses] : norm[place] male genitalia Musculoskeletal: [No joint erythema, edema or tenderness.] Skin: [No rash.] Neurologic: [No lateralizing deficits. CN II - XII grossly intact.] Lymphatic: [No adenopathy.] - Labs CBC & Chem 7: 02/02/20 15:12 02/02/20 15:12 Assessment and Plan (1) Dehydration Current Visit: Yes Status: Acute Code(s): E86.0 - DEHYDRATION SNOMED Code(s): 43654444 (2) Dizziness Current Visit: Yes Status: Acute Code(s): R42 - DIZZINESS AND GIDDINESS SNOMED Code(s): 532395380 (3) COPD (chronic obstructive pulmonary disease) Current Visit: No Status: Acute Code(s): J44.9 - CHRONIC OBSTRUCTIVE PULM ONARY DISEASE, UNSPECIFIED SNOMED Code(s): 19515269 (4) Diverticulitis large intestine Current Visit: No Status: Acute Code(s): K57.32 - DVTRCLI OF LG INT W/O PERFORATION OR ABSCESS W/O BLEEDING SNOMED Code(s): 8220142 (5) Severe dizziness Current Visit: No Status: Acute Code(s): R42 - DIZZINESS AND GIDDINESS SNOMED Code(s): 883480672
--- NOTE | 2020-02-04 11:31 | P.HPIM ---
History of Present Illness H&P Date: 02/03/20 Chief Complaint: Nausea and vomiting unsteady gait Known patient to my practice, slightly cachectic patient has been this way his entire life, drinks 2-3 glasses of wine daily. Eats one meal daily, patient states he has been sick with nausea vomiting since Wednesday denies cough denies fever states that he was driving down to his daughter's house in [place] when about care home there he began to vomit in the vehicle. He states he turned around and went home and has been feeling dizzy and nauseous with headaches since that time. Patient also states he has not been drinking or eating since that time as well Review of Systems Constitutional: Reports as per HPI, Reports anorexia, Reports weakness Ears, nose, mouth and throat: Reports as per HPI, Reports headache (Frontal pain) Cardiovascular: Reports as per HPI Respiratory: Reports as per HPI Gastrointestinal: Reports abdominal pain, Reports nausea, Reports vomiting Genitourinary: Reports as per HPI Musculoskeletal: Reports as per HPI, Reports myalgias Integumentary: Reports as per HPI Neurological: Reports ataxia, Reports balance difficulties, Reports gait dysf unction, Reports headaches, Reports vertigo, Reports weakness Psychiatric: Reports as per HPI Endocrine: Reports as per HPI Past Medical History Past Medical History: Hypertension Additional Past Medical History / Comment(s): ABD PAIN, HX OF DIVERTICULTIS. History of Any Multi-Drug Resistant Organisms: None Reported Past Surgical History: Bowel Resection (Secondary to moderately severe diverticulitis/diverticulosis), Heart Catheterization With Stent Additional Past Surgical History / Comment(s): RETINOL DETACHMENT REPAIR (6 ON LEFT, 1 ON RIGHT). colon reconstrucion Past Anesthesia/Blood Transfusion Reactions: No Reported Reaction Date of Last Stent Placement:: UNKNOWN DATE Past Psychological History: No Psychological Hx Reported Smoking Status: Current every day smoker Past Alcohol Use History: Daily Additional Past Alcohol Use History / Comment(s): SMOKES ABOUT 2-3 DAY, SINCE WAS AGE 23 YRS. Past Drug Use History: None Reported - Past Family History Daughter(s) Family Medical History: Cancer Additional Family Medical History / Comment(s): breast cancer Medications and Allergies Home Medications Medication Instructions Recorded Confirmed Type Metoprolol Tartrate 12.5 mg PO DAILY 12/16/18 02/02/20 History Acetaminophen-Codeine 300-30mg 2 tab PO Q8H PRN 02/02/20 02/02/20 History [Tylenol w/codeine #3] DULoxetine HCL [Cymbalta] 30 mg PO DAILY 02/02/20 02/02/20 History EPINEPHrine (Auto Inject) [Epipen] 0.3 mg IM ONCE PRN 02/02/20 02/02/20 History Nitroglycerin Sl Tabs [Nitrostat] 0.4 mg SL Q5M PRN 02/02/20 02/02/20 History Allergies Allergy/AdvReac Type Severity Reaction Status Date / Time venom-honey bee Allergy Anaphylaxis Verified 02/02/20 16:57 [bee venom (honey bee)] Physical Exam Osteopathic Statement: *. No significant issues noted on an osteopathic structural exam other than those noted in the History and Physical/Consult. Vitals: Vital Signs Temp Pulse Resp BP Pulse Ox 02/04/20 07:29 98.1 F 76 16 126/79 97 02/04/20 03:07 98.2 F 77 16 116/86 96 02/03/20 19:35 98.3 F 86 17 131/82 96 02/03/20 15:00 98 F 78 17 110/80 94 L Intake and Output 02/03/20 02/04/20 02/04/20 22:59 06:59 14:59 Intake Total 500 1880 Output Total 200 150 150 Balance 300 -150 1730 Intake: Intake, IV Titration 500 1300 Amount Sodium Chloride 0.9% 1, 1200 000 ml @ 150 mls/hr IV . Q6H40M [facility] Rx#:[id number] Sodium Chloride 0.9% 1, 500 000 ml @ 150 mls/hr IV . Q6H45M ONE with Mvi, Adult No.4 with Vit K 10 ml with Thiamine 100 mg with Folic Acid 1 mg Rx#: [id number] Thiamine 200 mg In Sodium 100 Chloride 0.9% 100 ml @ 200 mls/hr IVPB Q12HR [facility] Rx#:[id number] Oral 580 Output: Urine 200 150 150 Other: Voiding Method Urinal Urinal Urinal # Voids 2 General: [Patient awake, alert and oriented times 3. Patient in no acute distress. Patient appears cachectic this is pretty normal for him HEENT: [PERRL. EOMI. No pharyngeal erythema or exudate.] Neck: [No adenopathy.] Cardiac: [Heart regular in rate and rhythm. No S3. No S4. No clicks, rubs. No murmur.] Lungs: [Clear to auscultation bilaterally.] Abdomen: [No mass. No organomegaly. Bowel sounds presnt and normoactive in all 4 quadrants.] Extremes: [No edema no cyanosis no claudication normal pulses] : Normal male genitalia Musculoskeletal: [No joint erythema, edema or tenderness.] Skin: [No rash.] Neurologic: [No lateralizing deficits. CN II - XII grossly intact.] Lymphatic: [No adenopathy.] Results CBC & Chem 7: 02/02/20 15:12 02/02/20 15:12 Thrombosis Risk Factor Assmnt - Choose All That Apply Any of the Below Risk Factors Present?: No Other Risk Factors: Yes Each Risk Factor Represents 2 Points: Age 61-74 years Other congenital or acquired thrombophilia - If yes, enter type in comment: No Thrombosis Risk Factor Assessment Total Risk Factor Score: 2 Thrombosis Risk Factor Assessment Level: Low Risk Assessment and Plan (1) Dehydration Current Visit: Yes Status: Acute Code(s): E86.0 - DEHYDRATION SNOMED Code(s): 37795726 (2) Dizziness Current Visit: Yes Status: Acute Code(s): R42 - DIZZINESS AND GIDDINESS SNOMED Code(s): 889833275 (3) Syncope Current Visit: Yes Status: Acute Code(s): R55 - SYNCOPE AND COLLAPSE SNOMED Code(s): 136617829 (4) COPD (chronic obstructive pulmonary disease) Current Visit: No Status: Acute Code(s): J44.9 - CHRONIC OBSTRUCTIVE PULMONARY DISEASE, UNSPECIFIED SNOMED Code(s): 59826928 (5) Diverticulitis large intestine Current Visit: No Status: Acute Code(s): K57.32 - DVTRCLI OF LG INT W/O PERFORATION OR ABSCESS W/O BLEEDING SNOMED Code(s): 1346714 Plan: Make patient full admit Consult physical therapy occupational therapy for evaluation and treatment for ataxia and rehab placement Consult social work for possible rehab placement Consults neurology for evaluation for rehab placement Patient has improved but is has unable to walk without full assistance and at this time cannot walk without a walker Time with Patient: Greater than 30
[2020-02-04] MEDS: ACETAMINOPHEN TAB 500 MG TAB PO PRN ×2 (12:03→20:31)
[2020-02-04 12:27] LABS: Basophils % (A) 0 %; Eosinophils % (A) 0 %; HCT 44.8 % (39.0-53.0); HGB 15.1 gm/dL (13.0-17.5); Lymphocytes # (A) 0.9 k/uL (1.0-4.8); Lymphocytes % (A) 10 %; MCH 34.4 pg (25.0-35.0); MCHC 33.6 g/dL (31.0-37.0); MCV 102.4 fL (80.0-100.0); Macrocytosis Slight; Mean Platelet Volume 7.5; Monocytes # (A) 0.4 k/uL (0-1.0); Monocytes % (A) 4 %; Neutrophils # (A) 8.2 k/uL (1.3-7.7); Neutrophils % (A) 85 %; Platelet Count 215 k/uL (150-450); RBC 4.37 m/uL (4.30-5.90); RDW 12.6 % (11.5-15.5); WBC 9.7 k/uL (3.8-10.6)
[2020-02-04 12:51] LABS: ALT 13 U/L (4-49); AST 20 U/L (17-59); African American GFR (CKD) >90 (>60 ml/min/1.73 sqM); Albumin 2.9 g/dL (3.5-5.0); Alkaline Phosphatase 56 U/L (38-126); Anion Gap 3 mmol/L; Bilirubin, Delta 0.2 mg/dL (0.0-0.2); Bilirubin,Unconjugated 0.7 mg/dL (0.0-1.1); Blood Urea Nitrogen 8 mg/dL (9-20); Calcium 8.2 mg/dL (8.4-10.2); Carbon Dioxide 23 mmol/L (22-30); Chloride 107 mmol/L (98-107); Glucose 138 mg/dL (74-99); Non-African American GFR(CKD) >90 (>60 ml/min/1.73 sqM); Potassium 3.9 mmol/L (3.5-5.1); Sodium 133 mmol/L (137-145); Total Bilirubin 0.9 mg/dL (0.2-1.3); Total Protein 5.5 g/dL (6.3-8.2)
[2020-02-05] MEDS: HYDROCORTISONE SUCCINATE 100 MG/2 ML VIAL IV SCH ×2 (06:04→12:00)
[2020-02-05] MEDS: SODIUM CHLORIDE 0.9% 1,000 ML IV SCH ×2 (06:04→12:18)
[2020-02-05] MEDS: THIAMINE 200 MG in SODIUM CHLORIDE 0.9% 100 ML IVPB SCH (09:04)
[2020-02-05] MEDS: METOPROLOL TARTRATE 12.5 MG TAB PO SCH (09:04)
[2020-02-05] MEDS: DULoxetine HCL 30 MG CAPSULE.DR PO SCH (09:04)
[2020-02-05 09:37] VITALS: BP 162/108; PULSE 60; RESP 18; TEMP 97.8
--- NOTE | 2020-02-05 12:45 | P.DS ---
Providers Date of admission: 02/02/20 18:29 Expected date of discharge: 02/05/20 Attending physician: Aguilar Thurston Consults: 02/04/20 11:00 Consult Physician Routine Consulting Provider: [facility] Consult Reason/Comments: Positional vertigo, unsteady gait, Do you want consulting provider notified?: Yes Primary care physician: Aguilar Thurston [facility] Course: Final Diagnoses: Dizziness with nausea vomiting, Dehydration Possible vertigo Gait dysfunction Alcohol use Hospital course:Known patient to my practice, slightly cachectic patient has been this way his entire life, drinks 2-3 glasses of wine daily. Eats one meal daily, patient states he has been sick with nausea vomiting since Wednesday denies cough denies fever states that he was driving down to his daughter's house in [place] when about fci there he began to vomit in the vehicle. He states he turned around and went home and has been feeling dizzy and nauseous with headaches since that time. Patient also states he has not been drinking or eating since that time as well. Brain CT reported no acute abnormality .Maintained on IV fluid hydration, thiamine, prn Ativan and meclizine. No further nausea vomiting or diarrhea. Denies dizziness. Reports sometimes has gait imbalance. Patient will be discharged home today in a stable condition with guarded prognosis, pending PT/OT and neurology evaluation/recommendations and clearance. The impression and plan of care has been dictated as directed. : I performed a history and examination of this patient, discussed the same with the dictator. I agree with the dictator's note ,documented as a scribe. Any additional findings or plans will be noted. Patient Condition at Discharge: Stable Plan - Discharge Summary Discharge Rx Participant: No New Discharge Prescriptions: New Folic Acid 1 mg PO DAILY #30 tablet Thiamine [Vitamin B-1] 100 mg PO DAILY #30 tablet Meclizine [Antivert] 12.5 mg PO Q8HR PRN #30 tablet PRN Reason: Vertigo Continue Metoprolol Tartrate 12.5 mg PO DAILY Nitroglycerin Sl Tabs [Nitrostat] 0.4 mg SL Q5M PRN PRN Reason: Chest Pain EPINEPHrine (Auto Inject) [Epipen] 0.3 mg IM ONCE PRN PRN Reason: Anaphylaxis DULoxetine HCL [Cymbalta] 30 mg PO DAILY Acetaminophen-Codeine 300-30mg [Tylenol w/codeine #3] 2 tab PO Q8H PRN PRN Reason: Pain Discharge Medication List Metoprolol Tartrate 12.5 mg PO DAILY 12/16/18 [History] Acetaminophen-Codeine 300-30mg [Tylenol w/codeine #3] 2 tab PO Q8H PRN 02/02/20 [History] DULoxetine HCL [Cymbalta] 30 mg PO DAILY 02/02/20 [History] EPINEPHrine (Auto Inject) [Epipen] 0.3 mg IM ONCE PRN 02/02/20 [History] Nitroglycerin Sl Tabs [Nitrostat] 0.4 mg SL Q5M PRN 02/02/20 [History] Folic Acid 1 mg PO DAILY #30 tablet 02/05/20 [Rx] Meclizine [Antivert] 12.5 mg PO Q8HR PRN #30 tablet 02/05/20 [Rx] Thiamine [Vitamin B-1] 100 mg PO DAILY #30 tablet 02/05/20 [Rx] Follow up Appointment(s)/Referral(s): Aguilar Thurston Jr, DO [Primary Care Provider] - 3 Days [facility], [NON-STAFF] - 1-2 Days Azar Martin DO [STAFF PHYSICIAN] - 1 Week [facility] [NON-STAFF] - 1-2 Days Activity/Diet/Wound Care/Special Instructions: No ETOH
--- NOTE | 2020-02-05 13:15 | P.CNNES ---
History of Present Illness Consult date: 02/05/20 Requesting physician: Ivan Elliott Reason for Consult: Positional Vertigo, unsteady gait History of Present Illness: Patient is a 74-year-old male, who states that on 01/31/2020 he went to [place]. At 2 PM he was feeling fine. However at around 2:45 PM he started having violent nausea vomiting and had 4 episodes of vomiting. He was feeling very off balance. He was able to drive back home and laid down. 2 hours later he woke up and felt very uncomfortable and almost started to have spinning sensation. He called his primary physician office, and was seen the following day on , and patient was given a flu shot. However after that he got worse. However he continued to feel off balance, dizzy, particularly when turning fast. He decided to come to the ER and arrived here at 1:30 PM on 02/02/2020. Patient's vital signs on arrival was blood pressure 121/84, pulse rate [address] head showed no acute abnormality. Age-related changes of atrophy and chronic small vessel ischemia. On my review, there is evidence of wax impaction in the left external auditory canal. EKG shows normal sinus rhythm. Patient had a carotid Doppler on 10/16/2019, which revealed no signif icant stenosis of either ICA. Moderate atherosclerotic changes in both bifurcations, with no significant stenosis. Antegrade flow in both vertebral arteries. CT of the cervical spine from 03/31/2019 showed multilevel facet and uncovertebral joint arthropathy with stable grade 1 spondylolisthesis at C6 7 and C7-T1. Similar severe degenerative disc disease from C4 through C7 levels with disc osteophyte complexes causing mild spinal canal stenosis at C5 6 and C6 7. Variable foraminal stenosis, moderate to severe on the right at C5 6 and moderate to severe on both sides at C6 7. Patient has a previous MRI of the brain on 11/01/2017 which revealed right greater than left mastoid fluid could reflect mastoiditis and appropriate setting, correlate clinically. Background mild diffuse age-related cerebral atrophy and chronic small vessel ischemic change. Patient states he has smoked less than one pack per day since he retired in 1995. Lately smoking less about 6 cigarettes per day. Drinks alcohol every other night about 1 drink of wine. Denies heavy alcoholism. Patient states he had history of concussion earlier this year and had some episodes of vertigo in the past. After the concussion, he underwent physical therapy for 6 months which helped. He still has some issues with balance since the concussion. Patient states that if he is walking looking down on the floor he is fine otherwise if he looks up straight ahead, feels dizzy and off balance. He does have problem with balance for a long time. Also has some issues with urgency of urination but no incontinence. Patient does complain of some numbness of the fingertips of both hands. Review of Systems As mentioned as above in detail. All other review of systems unremarkable. Patient has pressure in the eyes, some neck pain. Numbness of the fingertips. Some urinary urgency. Denies any abdominal pain nausea vomiting. He has history of partial colectomy. Past Medical History Past Medical History: Hypertension Additional Past Medical History / Comment(s): ABD PAIN, HX OF DIVERTICULTIS. History of Any Multi-Drug Resistant Organisms: None Reported Past Surgical History: Bowel Resection (Secondary to moderately severe diverticulitis/diverticulosis), Heart Catheterization With Stent Additional Past Surgical History / Comment(s): RETINOL DETACHMENT REPAIR (6 ON LEFT, 1 ON RIGHT). colon reconstrucion Past Anesthesia/Blood Transfusion Reactions: No Reported Reaction Date of Last Stent Placement:: UNKNOWN DATE Past Psychological History: No Psychological Hx Reported Smoking Status: Current every day smoker Past Alcohol Use History: Daily Additional Past Alcohol Use History / Comment(s): SMOKES ABOUT 2-3 DAY, SINCE WAS AGE 23 YRS. Past Drug Use History: None Reported - Past Family History Daughter(s) Family Medical History: Cancer Additional Family Medical History / Comment(s): breast cancer Medications and Allergies Home Medications Medication Instructions Recorded Confirmed Type Metoprolol Tartrate 12.5 mg PO DAILY 12/16/18 02/02/20 History Acetaminophen-Codeine 300-30mg 2 tab PO Q8H PRN 02/02/20 02/02/20 History [Tylenol w/codeine #3] DULoxetine HCL [Cymbalta] 30 mg PO DAILY 02/02/20 02/02/20 History EPINEPHrine (Auto Inject) [Epipen] 0.3 mg IM ONCE PRN 02/02/20 02/02/20 History Nitroglycerin Sl Tabs [Nitrostat] 0.4 mg SL Q5M PRN 02/02/20 02/02/20 History Folic Acid 1 mg PO DAILY #30 tablet 02/05/20 Rx Meclizine [Antivert] 12.5 mg PO Q8HR PRN #30 tablet 02/05/20 Rx Thiamine [Vitamin B-1] 100 mg PO DAILY #30 tablet 02/05/20 Rx Allergies Allergy/AdvReac Type Severity Reaction Status Date / Time venom-honey bee Allergy Anaphylaxis Verified 02/02/20 16:57 [bee venom (honey bee)] Physical Examination - Vital Signs Vital Signs: Vital Signs Temp Pulse Resp BP Pulse Ox 02/05/20 09:00 97.8 F 60 18 162/108 96 02/05/20 02:30 97.6 F 98 16 132/87 94 L 02/04/20 19:20 97.2 F L 100 15 117/75 95 02/04/20 13:59 98.1 F 77 18 116/56 97 Intake and Output 02/04/20 02/05/20 02/05/20 22:59 06:59 14:59 Intake Total 100 Output Total 702 4 Balance -702 -4 100 Intake: Other 100 Output: Urine 700 Stool 2 4 Other: Voiding Method Urinal Urinal # Voids 4 2 On examination patient is an elderly male, in no acute distress. Patient is alert awake oriented to time place and person. Speech and language functions are normal. Attention and concentration fund of knowledge is adequate. On cranial examination pupils are round and reacting to light, visual dominguez are full on confrontation, extraocular muscles are intact with no nystagmus. Face is symmetric, tongue protrudes the midline. Palatal elevation sensation normal. Hearing is is mildly decreased, shoulder shrug normal. Otologic examination revealed some dried up wax in both ears. Facial sensation normal. On muscle strength testing there is no pronator drift and the strength is normal in arms and legs distally and proximally. Reflexes are 3 to 3+ all over and plantars are probable withdrawal versus downgoing. Sensory touch is equal with no neglect. No ataxia for [id number] testing tone and bulk of muscles normal. Patient walks with slightly wide base, appears unsteady when turning around. Gen. examination revealed mild right carotid bruit, S1 and S2 was audible. Chest is clear, abdominal soft nontender. No peripheral edema. No cyanosis. Results - Laboratory Findings CBC and BMP: 02/04/20 11:55 02/04/20 11:55 Abnormal Lab Findings: Abnormal Labs 02/02/20 02/02/20 02/04/20 15:12 15:12 11:55 MCV 102.9 H 102.4 H Neutrophils # 8.2 H Lymphocytes # 0.9 L Sodium 133 L BUN Glucose 104 H Calcium Creatine Kinase 34 L Total Protein Albumin 02/04/20 11:55 MCV Neutrophils # Lymphocytes # Sodium 133 L BUN 8 L Glucose 138 H Calcium 8.2 L Creatine Kinase Total Protein 5.5 L Albumin 2.9 L Assessment and Plan Assessment: * 74-year-old male with episode of nausea vomiting vertigo, and imbalance, likely from peripheral vestibular dysfunction. Patient does have some impacted wax in both ears. Patient has history of dizziness and vertigo in the past. * Chronic imbalance, with neck pain, rule out cervical spinal stenosis. Rule out B12 deficiency. Plan: * Patient will undergo stat B12, folate and TSH, to rule out B12 or folate deficiency. * Patient will follow up with the neurologist Dr. Martin, and an appointment is already set in end of the month. If patient's balance problem continues to be an issue, would recommend an MRI of the cervical spine to evaluate for possible cervical spinal stenosis, as an outpatient. * I would also suggest referral to an ENT as outpatient for disimpaction of the wax. Addendum (02/06/2020 9 AM): Received blood test results. B12 is borderline normal 370. Folate 11.8. TSH is slightly low 0.203, free T4 is normal 1.07. Tried to call patient, going directly to the voicemail. Tried to call patient's daughter but going to voicemail as well. Left message in patient's voicemail to start B12 1000 g sublingual daily and follow up with PCP about thyroid dysfunction.
[2020-02-05 16:44] LABS: T4, Free (Free Thyroxine) 1.07 ng/dL (0.78-2.19)
[2020-02-05 19:57] LABS: Folate, Serum 11.8 ng/mL
== END 2020-02-05 16:05 | disposition home or self-care (01) | DRG 641 ==
LOC: EC 13:26 → 1SOBS 18:29 → OBSVTOIN 02-04 11:00
PROVIDERS: ADMIT Family Medicine; ATTEND Family Medicine
DX: E86.0 Dehydration (principal); R64 Cachexia; Z68.1 Body mass index [BMI] 19.9 or less, adult; K57.32 Diverticulitis of large intestine without perforation or abscess without bleeding; H81.399 Other peripheral vertigo, unspecified ear; I10 Essential (primary) hypertension; F17.210 Nicotine dependence, cigarettes, uncomplicated; J44.9 Chronic obstructive pulmonary disease, unspecified; R26.2 Difficulty in walking, not elsewhere classified; M48.02 Spinal stenosis, cervical region; M25.78 Osteophyte, vertebrae; Z79.899 Other long term (current) drug therapy; Z91.030 Bee allergy status; Z95.5 Presence of coronary angioplasty implant and graft; Z98.890 Other specified postprocedural states; Z80.3 Family history of malignant neoplasm of breast; Z87.820 Personal history of traumatic brain injury
CPT/HCPCS: 36415; 70450; 80053; 80320; 81003; 82248; 82550; 82607; 82746; 83605; 83735; 84100; 84439; 84443; 84484; 85025; 85730; 93005; 96361; 96365; 96366; 96375; 99285

== ENCOUNTER → 2020-03-08 | Outpatient (CLI) | payer MEDICARE, BC ==
--- NOTE | 2020-03-08 11:36 | MR ---
EXAMINATION TYPE: MR cervical spine wo con DATE OF EXAM: 03/08/2020 COMPARISON: HISTORY: Spinal stenosis, cord compression, myelopathy, imbalance, neck pain TECHNIQUE: Multiplanar, multisequence images of the cervical spine were acquired. C2-C3: Uncovertebral joint hypertrophy and facet arthropathy result in some left-sided foraminal encr oachment. No spinal stenosis or disc herniation. C3-C4: Posterior extension of endplate disc complex results in mild to moderate spinal stenosis. Ther e is foraminal encroachment bilaterally which is mild. C4-C5: Posterior extension endplate disc complex results in mild spinal stenosis. Foraminal encroachm ent is present bilaterally right greater than left. C5-C6: Posterior extension endplate disc complex results in mild to moderate spinal stenosis. Right g reater than left foraminal encroachment is present. C6-C7: Posterior extension endplate disc complex causes mild spinal stenosis. There is foraminal encr oachment bilaterally. C7-T1: No evidence for degenerative disc disease. No disc bulge/herniation or protrusion. No Canal stenosis. Foramina are patent bilaterally. Cervical segments are intact. There is normal alignment. Cervical spinal cord is of normal signal. Craniovertebral junction relationships are within normal limits. There is multilevel spondylosis. E ndplate discogenic marrow signal changes are present. Loss of disc height signal is greatest at C3-4, C4-5, C5-6 and C6-7. There is some artifact present. Cervical vertebral bodies are intact and show n ear anatomic alignment. IMPRESSION: The level degenerative disc disease and facet arthropathy.
== END | disposition home or self-care (01) ==
LOC: RADMRIMAIN 06:03
PROVIDERS: ATTEND Psychiatry & Neurology Neurology
DX: M50.30 Other cervical disc degeneration, unspecified cervical region (principal); M47.812 Spondylosis without myelopathy or radiculopathy, cervical region
CPT/HCPCS: 72141

== ENCOUNTER 2020-05-02 06:27 | Day surgery (SDC) | payer MEDICARE, BC ==
[~2020-05-02 06:27] MED LIST changes: +ALPRAZolam 0.25 MG TAB PO PRN; +ALPRAZolam 0.5 MG TAB PO PRN; +ASPIRIN 325 MG TAB PO STA; +ATORVASTATIN 80 MG TAB PO STA; -DEXAMETHASONE SOD PHOSPHATE 10 MG/ML 1 ML VIAL IV ONE; -HEPARIN SODIUM,PORCINE 5,000 UNIT/ML 1 ML VIAL SQ ONE; -HYDROmorphone 0.5 MG/0.5 ML SYRINGE IVP PRN; -LIDOCAINE 1% 20 ML VIAL (10MG/ML) FOR IV START INTRADERMA PRN; -MIDAZOLAM 2 MG/2 ML VIAL IV PRN; +NITROGLYCERIN SL TABS 0.4 MG TAB SUBLINGUAL PRN; -ONDANSETRON 4 MG/2 ML VIAL IVP ONE; -SCOPOLAMINE 1.5MG/72HR PATCH TRANSDERM ONE; +SODIUM CHLORIDE 0.9% 1,000 ML in EMPTY BAG 1 BAG IV ONE; -metroNIDAZOLE-NS PMX 500 MG in SALINE 1 100ML.BAG IVPB ONE
[2020-05-02] MEDS ORDERED: SODIUM CHLORIDE 0.9% 1,000 ML IV ONE (06:50)
[2020-05-02] MEDS ORDERED: ATORVASTATIN 80 MG TAB PO ONE (07:00)
[2020-05-02] MEDS ORDERED: ASPIRIN 325 MG TAB PO ONE (07:00)
[2020-05-02 07:26] LABS: African American GFR (CKD) >90 (>60 ml/min/1.73 sqM); Anion Gap 7 mmol/L; Blood Urea Nitrogen 14 mg/dL (9-20); Calcium 8.8 mg/dL (8.4-10.2); Carbon Dioxide 24 mmol/L (22-30); Chloride 107 mmol/L (98-107); Glucose 97 mg/dL (74-99); Non-African American GFR(CKD) >90 (>60 ml/min/1.73 sqM); Sodium 138 mmol/L (137-145)
[2020-05-02] MEDS ORDERED: fentaNYL (PF) 50 MCG/ML 2 ML AMP IVP ONE ×2 (07:48→08:52)
[2020-05-02] MEDS ORDERED: LIDOCAINE 1% INJ 10MG/ML (20 ML MDV) SQ ONE (07:48)
[2020-05-02] MEDS ORDERED: MIDAZOLAM 2 MG/2 ML VIAL IVP ONE ×2 (07:48→08:52)
[2020-05-02] MEDS ORDERED: HEPARIN SODIUM 1,000 UN/ML (10ML VL) IV ONE ×2 (08:12→08:52)
[2020-05-02] MEDS ORDERED: CLOPIDOGREL 75 MG TAB PO ONE (08:17)
[2020-05-02] MEDS ORDERED: IOPAMIDOL-370 125ML BTL INJ ONE (08:29)
[2020-05-02] MEDS ORDERED: NITROGLYCERIN 1000MCG/10ML SYRINGE INTRACORON ONE ×3 (08:30→08:54)
[2020-05-02] MEDS ORDERED: IOPAMIDOL-370 100ML BTL INJ ONE (09:11)
[2020-05-02] MEDS ORDERED: SODIUM CHLORIDE 0.9% 1,000 ML in EMPTY BAG 1 BAG IV ONE (09:20)
[2020-05-02] MEDS ORDERED: Acetaminophen-Codeine 300-30mg TAB ONE (09:26)
[2020-05-02] MEDS ORDERED: NITROGLYCERIN SL TABS 0.4 MG TAB SUBLINGUAL PRN (09:43)
[2020-05-02] MEDS ORDERED: ZOLPIDEM 5 MG TAB PO PRN (09:43)
[2020-05-02] MEDS ORDERED: ATROPINE SULFATE 0.1 MG/ML 10ML SYRINGE IV PRN (09:43)
[2020-05-02] MEDS ORDERED: RX INFO: IV CONTRAST WAS GIVEN 1 EACH MISC MISCELLANE PRN (09:43)
[2020-05-02] MEDS ORDERED: MAG HYDROX/AL HYDROX/SIMETH 30 ML CUP PO PRN (09:43)
--- NOTE | 2020-05-02 09:43 | P.PRCINT ---
Percutaneous Coronary Int. - Percutaneous Coronary Intervention Percutaneous Coronary Intervention: PROCEDURES PERFORMED: Ultrasound-guided access, Left heart catheterization, bilateral coronary angiography, PCI of proximal to mid LAD with a 3.5 x 15 mm Xience RIANA, kissing balloon angioplasty of diagonal 1 and LAD, IVUS LAD, Angio- Seal left femoral artery INDICATION: New onset angina while at rest consistent with unstable angina, prior history of CAD with PCI HISTORY: Patient is a pleasant 74-year-old male with history of tobacco abuse, hypertension, hyperlipidemia, prior fall with concussion and mild memory impairment and CAD with prior PCI 3 times, last in 2012 who presented to the office with new onset of chest pain mainly occurring in the morning at rest and worse with exertion or the past few months. He has been taking nitroglycerin with improvement. We did start him on Imdur however he has still been having chest pain at rest in the morning and with minimal activity. Therefore recommendation was to perform heart catheterization with possible PCI. He did have very poor radial and ulnar pulses in office and therefore discussed femoral approach. CONSENT:I have discussed the risks, benefits and alternative therapies for the above-mentioned procedure and for both sedation/analgesia as well as necessary blood product administration, if indicated, as they pertain to this patient. The patient has indicated understanding and acceptance of the risks and procedures discussed. PROCEDURE: After the risks, benefits and alternatives of the above mentioned procedure explained in detail with the patient, informed consent was obtained. Patient was taken to the catheterization lab and prepped and draped in usual fashion. The right radial artery was examined with ultrasound and seen to be very small and had a barely palpable pulse with also poor ulnar pulse. Therefore decision was made to go from a femoral approach. Right femoral ultrasound showed diffuse heavily calcified lesion in the common femoral artery and therefore left femoral artery was used. Left femoral artery showed mild calcification and much better approach. 1% lidocaine was used to anesthetize the left femoral artery using micropuncture technique and ultrasound. A 6- Polish sheath was placed in the left femoral artery using modified Seldinger technique. Left coronary angiography was performed with a 6-Polish JL 4.0 catheter and right coronary angiography was performed with a 6-Polish AL 1.0 catheter in various views. The 6-Polish AL1 catheter had been inserted into the left ventricle and pressure measurements were obtained. Left ventriculography was performed in the TOLEDO projection with a power injection. The right radial sheath was removed and a TR band was placed with hemostasis achieved. The patient tolerated the procedure well. Patient was transported back to the post catheterization holding area in stable condition. A decision was made to intervene on the LAD. Heparin was given for an ACT greater than 250. A 6Fr CLS 4.0 guide was used to engage the left main. A 0.014 BMW wire was placed in the distal LAD as well as in the distal diagonal 1. There appeared to be only 30-40% ostial diagonal disease and therefore decision was made to perform provisional stenting. Next predilation was performed using a 3.25 x 8mm balloon. A 3.5 x 15mm Xience RIANA stent was then placed. The stent was post dilated proximally and at the mid portion with a 3.75 x 12mm NC balloon. Patient did develop mild temporary chest pain and there was plaque shifting of into the origin of the diagonal 1 with resultant 80% stenosis and therefore decision was made to perform kissing balloon angioplasty. The diagonal branch was rewired with a 0.014 BMW wire. Balloon angioplasty was performed of the diagonal 1 branch with a 2.5 x 12 mm balloon. Next kissing balloon angioplasty was performed with a 2.5 x 12 mm balloon in the diagonal branch and a 3.25 x 8 mm balloon in the LAD. IVUS was performed of the LAD which showed no dissection, well apposed stent, proximally 3.5mm, more distally 3.25 x 3.5mm and diffuse disease more distally. There was a more distal 50% mid LAD lesion which was felt best treated medically at this time. Angiograms were obtained in multiple views. Pre intervention there was 85% stenosis and ISSAC 3 flow and post intervention there was 0% residual stenosis and ISSAC 3 flow in both the LAD and diagonal 1. The wire was then removed and final angiograms were obtained. Left femoral angiogram was performed which showed adequate anatomy for closure. A 6-Polish Angio-Seal was placed and hemostasis was achieved. The patient tolerated the procedure well. Patient was chest pain- free upon leaving the Parking Lot [employer]. The patient was transferred to the post catheterization holding area in stable condition. Conscious Sedation: Patient was monitored under the direct supervision of vision of myself for conscious sedation using Versed and fentanyl for a total duration of 88 minutes HEMODYNAMICS: Aorta: 128/72 LV: 122/4, LVEDP 12 SELECTIVE CORONARY ARTERIOGRAPHY: LEFT MAIN: The left main is a large caliber vessel which bifurcates into the LAD and circumflex. There is diffuse 20% stenosis. LEFT ANTERIOR DESCENDING CORONARY ARTERY: LAD is a large caliber vessel which stops just before the apex. There a 85% proximal to mid LAD involving diagonal 1. There is 30-40$ diagonal 1 ostial stenosis. There is a more distal 50% mid LAD stenosis. LEFT CIRCUMFLEX CORONARY ARTERY: Left circumflex is a moderate caliber vessel with mild luminal irregularities and gives off a moderate caliber OM1. RIGHT CORONARY ARTERY: The right coronary artery is a large caliber vessel which gives off a PDA and PLV branch and is the dominant vessel. There is a proximal 30-40% stenosis with a mid and distal RCA stent with mild 10-20% instent stenosis. Conclusions: 1. Successful PCI of proximal to mid LAD with a 3.5 x 15 mm Xience RIANA, kissing balloon angioplasty of diagonal 1 and LAD, 2. Mild to moderate disease elsewhere including 50% mid LAD and 30-40% proximal RCA 3. Normal left sided pressures Plan: 1. Aggressive risk factor modifications per most recent ACC/AHA guidelines. 2. Continue dual antiplatelets for 12 months. 3. Would treat proximal RCA and mid LAD medically.
[2020-05-02] MEDS ORDERED: SODIUM CHLORIDE 0.9% 1,000 ML IV SCH (10:30)
[2020-05-02 14:27] VITALS: BMI 20.9
[2020-05-02] MEDS: Acetaminophen-Codeine 300-30mg TAB PO PRN ×2 (15:12→23:20)
[2020-05-03] MEDS: Acetaminophen-Codeine 300-30mg TAB PO PRN (07:04)
[2020-05-03 07:50] LABS: African American GFR (CKD) >90 (>60 ml/min/1.73 sqM); Non-African American GFR(CKD) >90 (>60 ml/min/1.73 sqM)
[2020-05-03 08:54] VITALS: BP 145/85; PULSE 78; RESP 16; TEMP 98.1
[2020-05-03] MEDS ORDERED: CLOPIDOGREL 75 MG TAB PO SCH (09:00)
[2020-05-03] MEDS ORDERED: ASPIRIN 81 MG PO SCH (09:00)
--- NOTE | 2020-05-03 09:54 | P.DS ---
Providers Attending physician: Yosef Bender DO Consults: 05/02/20 09:43 Consult Physician Routine Consulting Provider: [facility] Consult Reason/Comments: Post Interventional patient Do you want consulting provider notified?: Already Contacted Primary care physician: [facility] Course: Patient is a pleasant 74-year-old male with history of coronary artery disease with prior stenting, hypertension, hyperlipidemia and prior tobacco abuse who presented as an outpatient with increased chest pain mainly in the morning relieved with nitroglycerin similar to his prior angina or last 2 months. Given typical symptoms a heart catheterization was recommended. Patient had left heart catheterization performed 05/02/2020 with an 85% proximal to mid LAD lesion involving diagonal 1 branch. He had successful PCI with balloon angioplasty of the diagonal branch from a left femoral approach. On 05/03/2020 he denies any chest pain which she had previously been getting in the morning. His left femoral site is without hematoma and good palpable pulse. Vital signs stable. Patient is stable for discharge home on aspirin and Plavix as well as the rest of his medications with follow-up in office in 1 week. Plan - Discharge Summary Discharge Rx Participant: No New Discharge Prescriptions: New Aspirin 81 mg PO DAILY #90 chewable Clopidogrel Bisulfate [Plavix] 75 mg PO DAILY #90 tab No Action Metoprolol Tartrate 12.5 mg PO DAILY Nitroglycerin Sl Tabs [Nitrostat] 0.4 mg SL Q5M PRN PRN Reason: Chest Pain EPINEPHrine (Auto Inject) [Epipen] 0.3 mg IM ONCE PRN PRN Reason: Anaphylaxis Acetaminophen-Codeine 300-30mg [Tylenol w/codeine #3] 1 tab PO Q8H PRN PRN Reason: Pain Folic Acid 1 mg PO DAILY #30 tablet Thiamine [Vitamin B-1] 100 mg PO DAILY #30 tablet Meclizine [Antivert] 12.5 mg PO Q8HR PRN #30 tablet PRN Reason: Vertigo Isosorbide Mononitrate ER [Imdur] 30 mg PO DAILY Rosuvastatin [Crestor] 20 mg PO DAILY Discharge Medication List Metoprolol Tartrate 12.5 mg PO DAILY 12/16/18 [History] Acetaminophen-Codeine 300-30mg [Tylenol w/codeine #3] 1 tab PO Q8H PRN 02/02/20 [History] EPINEPHrine (Auto Inject) [Epipen] 0.3 mg IM ONCE PRN 02/02/20 [History] Nitroglycerin Sl Tabs [Nitrostat] 0.4 mg SL Q5M PRN 02/02/20 [History] Folic Acid 1 mg PO DAILY #30 tablet 02/05/20 [Rx] Meclizine [Antivert] 12.5 mg PO Q8HR PRN #30 tablet 02/05/20 [Rx] Thiamine [Vitamin B-1] 100 mg PO DAILY #30 tablet 02/05/20 [Rx] Isosorbide Mononitrate ER [Imdur] 30 mg PO DAILY 05/01/20 [History] Rosuvastatin [Crestor] 20 mg PO DAILY 05/01/20 [History] Aspirin 81 mg PO DAILY #90 chewable 05/03/20 [Rx] Clopidogrel Bisulfate [Plavix] 75 mg PO DAILY #90 tab 05/03/20 [Rx] Follow up Appointment(s)/Referral(s): Yosef Bender DO [STAFF PHYSICIAN] - 05/08/20 3:45 pm (WedApr AT 3:45 pm IS FOLLOW UP APPOINTMENT) Patient Instructions/Handouts: *[facility] - After Heart Catheterization - [facility] Specialist Instructions
== END 2020-05-03 11:32 | disposition home or self-care (01) ==
LOC: CATHCVL 06:27 → 3SCARD 09:12 → CATHCVL 05-03 11:32
PROVIDERS: ATTEND Internal Medicine
DX: I25.110 Atherosclerotic heart disease of native coronary artery with unstable angina pectoris (principal); I10 Essential (primary) hypertension; E78.5 Hyperlipidemia, unspecified; E78.00 Pure hypercholesterolemia, unspecified; F17.210 Nicotine dependence, cigarettes, uncomplicated; Z86.73 Personal history of transient ischemic attack (TIA), and cerebral infarction without residual deficits; Z95.5 Presence of coronary angioplasty implant and graft; Z82.49 Family history of ischemic heart disease and other diseases of the circulatory system; Z79.899 Other long term (current) drug therapy
CPT/HCPCS: 97162; 97165; 93458; 92921; 80048; 82565; C9600; C1769 ×3; C1760; C1887; C1725 ×3; C1894; C1753; C1874; J2250; J2001; J3010; J1644; Q9967 ×2

== ENCOUNTER 2020-05-21 11:32 | Emergency (ER) | payer MEDICARE, BC ==
[2020-05-21] MEDS ORDERED: SODIUM CHLORIDE 0.9% 1,000 ML IV STA (12:53)
[2020-05-21] MEDS ORDERED: ONDANSETRON 4 MG/2 ML VIAL IVP STA (12:54)
[2020-05-21] MEDS ORDERED: HYDROmorphone 1 MG/ML 1 ML SYRINGE IVP STA (12:54)
[2020-05-21] MEDS ORDERED: METOCLOPRAMIDE 5 MG/ML 2 ML VIAL IVP STA (12:55)
--- NOTE | 2020-05-21 12:58 | ED ---
General Adult HPI - General Chief complaint: Headache Stated complaint: head injury, fatigue,dizziness Time Seen by Provider: 05/21/20 12:44 Source: patient, RN notes reviewed, old records reviewed Mode of arrival: wheelchair Limitations: no limitations - History of Present Illness Initial comments: 74-year-old male presenting for evaluation of fatigue, headache. Patient has previous history of concussion with chronic headache. He states that his he adache is typical but more severe than usual. Additionally he reports generalized weakness and fatigue. No focal numbness or weakness. No nausea vomiting. No chest pain or dyspnea. No fever. He states he has been eating and drinking well. - Related Data Home Medications Medication Instructions Recorded Confirmed Metoprolol Tartrate 12.5 mg PO DAILY 12/16/18 05/02/20 Acetaminophen-Codeine 300-30mg 1 tab PO Q8H PRN 02/02/20 05/02/20 [Tylenol w/codeine #3] EPINEPHrine (Auto Inject) [Epipen] 0.3 mg IM ONCE PRN 02/02/20 05/01/20 Nitroglycerin Sl Tabs [Nitrostat] 0.4 mg SL Q5M PRN 02/02/20 05/01/20 Isosorbide Mononitrate ER [Imdur] 30 mg PO DAILY 05/01/20 05/02/20 Rosuvastatin [Crestor] 20 mg PO DAILY 05/01/20 05/02/20 Previous Rx's Medication Instructions Recorded Folic Acid 1 mg PO DAILY #30 tablet 02/05/20 Meclizine [Antivert] 12.5 mg PO Q8HR PRN #30 tablet 02/05/20 Thiamine [Vitamin B-1] 100 mg PO DAILY #30 tablet 02/05/20 Aspirin 81 mg PO DAILY #90 chewable 05/03/20 Clopidogrel Bisulfate [Plavix] 75 mg PO DAILY #90 tab 05/03/20 Allergies Allergy/AdvReac Type Severity Reaction Status Date / Time venom-honey bee Allergy Anaphylaxis Verified 05/21/20 11:38 [bee venom (honey bee)] Review of Systems ROS Statement: Those systems with pertinent positive or pertinent negative responses have been documented in the HPI. ROS Other: All systems not noted in ROS Statement are negative. Past Medical History Past Medical History: Coronary Artery Disease (CAD), Chest Pain / Angina, Hypertension, Rheumatoid Arthritis (RA) Additional Past Medical History / Comment(s): HX OF DIVERTICULTIS. History of Any Multi-Drug Resistant Organisms: None Reported Past Surgical History: Bowel Resection, Heart Catheterization With Stent Additional Past Surgical History / Comment(s): RETINOL DETACHMENT REPAIR (6 ON LEFT, 1 ON RIGHT). colon reconstrucion Past Anesthesia/Blood Transfusion Reactions: No Reported Reaction Date of Last Stent Placement:: UNKNOWN DATE 2009 Past Psychological History: No Psychological Hx Reported Smoking Status: Current every day smoker Past Alcohol Use History: Heavy Past Drug Use History: None Reported - Past Family History Daughter(s) Family Medical History: Cancer Additional Family Medical History / Comment(s): breast cancer General Exam Limitations: no limitations General appearance: alert, in no apparent distress Head exam: Present: atraumatic, normocephalic Eye exam: Present: normal appearance, PERRL ENT exam: Present: mucous membranes dry Neck exam: Present: normal inspection. Absent: tenderness, meningismus Respiratory exam: Present: normal lung sounds bilaterally. Absent: respiratory distress, wheezes Cardiovascular Exam: Present: regular rate, normal rhythm GI/Abdominal exam: Present: soft. Absent: distended, tenderness, guarding, rebound Extremities exam: Present: normal inspection, normal capillary refill. Absent: pedal edema, calf tenderness Neurological exam: Present: alert, oriented X3, CN II-XII intact. Absent: motor sensory deficit Skin exam: Present: warm, dry, intact. Absent: cyanosis, diaphoretic, erythema Course Vital Signs 05/21/20 05/21/20 11:38 14:53 Temperature 98.4 F Pulse Rate 74 69 Respiratory 16 16 Rate Blood Pressure 134/80 134/86 O2 Sat by Pulse 98 98 Oximetry EKG Findings - EKG Comments: EKG Findings:: EKG: Normal sinus rhythm, rate 78, MO interval 152, QRS duration 84, QTC 435, no ST segment elevation. Medical Decision Making - Medical Decision Making 74-year-old male presenting with headache, and fatigue. Workup initiated, patient has stable vitals, he has a nonfocal neurologic exam. Head CT was performed which did show an abnormality that was concerning for aneurysm therefore CT angiography was performed which was negative for aneurysmal change. He has a normal CBC, normal CMP, magnesium 1.4 which is replaced. Chest x-ray is negative for any acute findings. After initial treatment the patient is feel ing 100% better. No further headache. His symptoms have resolved. I discussed case with Dr. Elliott who is familiar with the patient. Patient will be able to follow up on an outpatient basis. Strict return parameters are given. - Lab Data Result diagrams: 05/21/20 12:59 05/21/20 12:59 Lab Results 05/21/20 05/21/20 05/21/20 Range/Units 12:59 12:59 12:59 WBC 8.9 (3.8-10.6) k/uL RBC 4.72 (4.30-5.90) m/uL Hgb 15.6 (13.0-17.5) gm/dL Hct 46.4 (39.0-53.0) % MCV 98.2 (80.0-100.0) fL MCH 33.1 (25.0-35.0) pg MCHC 33.8 (31.0-37.0) g/dL RDW 13.1 (11.5-15.5) % Plt Count 210 (150-450) k/uL MPV 7.7 Neutrophils % 62 % Lymphocytes % 26 % Monocytes % 8 % Eosinophils % 2 % Basophils % 1 % Neutrophils # 5.5 (1.3-7.7) k/uL Lymphocytes # 2.3 (1.0-4.8) k/uL Monocytes # 0.7 (0-1.0) k/uL Eosinophils # 0.2 (0-0.7) k/uL Basophils # 0.1 (0-0.2) k/uL PT 10.4 (9.0-12.0) sec INR 1.0 (<1.2) APTT 24.0 (22.0-30.0) sec Sodium 139 (137-145) mmol/L Potassium 3.7 (3.5-5.1) mmol/L Chloride 104 (98-107) mmol/L Carbon Dioxide 26 (22-30) mmol/L Anion Gap 9 mmol/L BUN 12 (9-20) mg/dL Creatinine 0.77 (0.66-1.25) mg/dL Est GFR (CKD-EPI)AfAm >90 (>60 ml/min/1.73 sqM) Est GFR (CKD-EPI)NonAf >90 (>60 ml/min/1.73 sqM) Glucose 112 H (74-99) mg/dL Plasma Lactic Acid Chano (0.7-2.0) mmol/L Calcium 8.9 (8.4-10.2) mg/dL Magnesium 1.4 L (1.6-2.3) mg/dL Total Bilirubin 1.1 (0.2-1.3) mg/dL AST 52 (17-59) U/L ALT 38 (4-49) U/L Alkaline Phosphatase 85 (38-126) U/L Troponin I (0.000-0.034) ng/mL NT-Pro-B Natriuret Pep pg/mL Total Protein 6.6 (6.3-8.2) g/dL Albumin 3.7 (3.5-5.0) g/dL Urine Color Urine Appearance (Clear) Urine pH (5.0-8.0) Ur Specific [place] (1.001-1.035) Urine Protein (Negative) Urine Glucose (UA) (Negative) Urine Ketones (Negative) Urine Blood (Negative) Urine Nitrite (Negative) Urine Bilirubin (Negative) Urine Urobilinogen (<2.0) mg/dL Ur Leukocyte Esterase (Negative) Urine RBC (0-5) /hpf Urine WBC (0-5) /hpf Ur Squamous Epith Cells (0-4) /hpf Urine Bacteria (None) /hpf Hyaline Casts (0-2) /lpf Urine Mucus (None) /hpf 05/21/20 05/21/20 05/21/20 Range/Units 12:59 12:59 12:59 WBC (3.8-10.6) k/uL RBC (4.30-5.90) m/uL Hgb (13.0-17.5) gm/dL Hct (39.0-53.0) % MCV (80.0-100.0) fL MCH (25.0-35.0) pg MCHC (31.0-37.0) g/dL RDW (11.5-15.5) % Plt Count (150-450) k/uL MPV Neutrophils % % Lymphocytes % % Monocytes % % Eosinophils % % Basophils % % Neutrophils # (1.3-7.7) k/uL Lymphocytes # (1.0-4.8) k/uL Monocytes # (0-1.0) k/uL Eosinophils # (0-0.7) k/uL Basophils # (0-0.2) k/uL PT (9.0-12.0) sec INR (<1.2) APTT (22.0-30.0) sec Sodium (137-145) mmol/L Potassium (3.5-5.1) mmol/L Chloride (98-107) mmol/L Carbon Dioxide (22-30) mmol/L Anion Gap mmol/L BUN (9-20) mg/dL Creatinine (0.66-1.25) mg/dL Est GFR (CKD-EPI)AfAm (>60 ml/min/1.73 sqM) Est GFR (CKD-EPI)NonAf (>60 ml/min/1.73 sqM) Glucose (74-99) mg/dL Plasma Lactic Acid Chano 1.1 (0.7-2.0) mmol/L Calcium (8.4-10.2) mg/dL Magnesium (1.6-2.3) mg/dL Total Bilirubin (0.2-1.3) mg/dL AST (17-59) U/L ALT (4-49) U/L Alkaline Phosphatase (38-126) U/L Troponin I <0.012 (0.000-0.034) ng/mL NT-Pro-B Natriuret Pep 300 pg/mL Total Protein (6.3-8.2) g/dL Albumin (3.5-5.0) g/dL Urine Color Urine Appearance (Clear) Urine pH (5.0-8.0) Ur Specific [place] (1.001-1.035) Urine Protein (Negative) Urine Glucose (UA) (Negative) Urine Ketones (Negative) Urine Blood (Negative) Urine Nitrite (Negative) Urine Bilirubin (Negative) Urine Urobilinogen (<2.0) mg/dL Ur Leukocyte Esterase (Negative) Urine RBC (0-5) /hpf Urine WBC (0-5) /hpf Ur Squamous Epith Cells (0-4) /hpf Urine Bacteria (None) /hpf Hyaline Casts (0-2) /lpf Urine Mucus (None) /hpf 05/21/20 Range/Units 14:53 WBC (3.8-10.6) k/uL RBC (4.30-5.90) m/uL Hgb (13.0-17.5) gm/dL Hct (39.0-53.0) % MCV (80.0-100.0) fL MCH (25.0-35.0) pg MCHC (31.0-37.0) g/dL RDW (11.5-15.5) % Plt Count (150-450) k/uL MPV Neutrophils % % Lymphocytes % % Monocytes % % Eosinophils % % Basophils % % Neutrophils # (1.3-7.7) k/uL Lymphocytes # (1.0-4.8) k/uL Monocytes # (0-1.0) k/uL Eosinophils # (0-0.7) k/uL Basophils # (0-0.2) k/uL PT (9.0-12.0) sec INR (<1.2) APTT (22.0-30.0) sec Sodium (137-145) mmol/L Potassium (3.5-5.1) mmol/L Chloride (98-107) mmol/L Carbon Dioxide (22-30) mmol/L Anion Gap mmol/L BUN (9-20) mg/dL Creatinine (0.66-1.25) mg/dL Est GFR (CKD-EPI)AfAm (>60 ml/min/1.73 sqM) Est GFR (CKD-EPI)NonAf (>60 ml/min/1.73 sqM) Glucose (74-99) mg/dL Plasma Lactic Acid Chano (0.7-2.0) mmol/L Calcium (8.4-10.2) mg/dL Magnesium (1.6-2.3) mg/dL Total Bilirubin (0.2-1.3) mg/dL AST (17-59) U/L ALT (4-49) U/L Alkaline Phosphatase (38-126) U/L Troponin I (0.000-0.034) ng/mL NT-Pro-B Natriuret Pep pg/mL Total Protein (6.3-8.2) g/dL Albumin (3.5-5.0) g/dL Urine Color Yellow Urine Appearance Clear (Clear) Urine pH 6.0 (5.0-8.0) Ur Specific [place] 1.031 (1.001-1.035) Urine Protein 1+ H (Negative) Urine Glucose (UA) Negative (Negative) Urine Ketones Negative (Negative) Urine Blood Negative (Negative) Urine Nitrite Negative (Negative) Urine Bilirubin 1+ H (Negative) Urine Urobilinogen 4.0 (<2.0) mg/dL Ur Leukocyte Esterase Negative (Negative) Urine RBC <1 (0-5) /hpf Urine WBC 1 (0-5) /hpf Ur Squamous Epith Cells <1 (0-4) /hpf Urine Bacteria Rare H (None) /hpf Hyaline Casts 1 (0-2) /lpf Urine Mucus Many H (None) /hpf Disposition Clinical Impression: Dehydration, Headache Disposition: HOME SELF-CARE Condition: Good Instructions (If sedation given, give patient instructions): Acute Headache (ED) Is patient prescribed a controlled substance at d/c from ED?: No Referrals: Aguilar Thurston Jr, DO [Primary Care Provider] - 1-2 days Time of Disposition: 16:19
[2020-05-21 13:30] LABS: Basophils # (A) 0.1 k/uL (0-0.2); Basophils % (A) 1 %; Eosinophils # (A) 0.2 k/uL (0-0.7); Eosinophils % (A) 2 %; HCT 46.4 % (39.0-53.0); HGB 15.6 gm/dL (13.0-17.5); Lymphocytes # (A) 2.3 k/uL (1.0-4.8); Lymphocytes % (A) 26 %; MCH 33.1 pg (25.0-35.0); MCHC 33.8 g/dL (31.0-37.0); MCV 98.2 fL (80.0-100.0); Mean Platelet Volume 7.7; Monocytes # (A) 0.7 k/uL (0-1.0); Monocytes % (A) 8 %; Neutrophils # (A) 5.5 k/uL (1.3-7.7); Neutrophils % (A) 62 %; Platelet Count 210 k/uL (150-450); RBC 4.72 m/uL (4.30-5.90); RDW 13.1 % (11.5-15.5); WBC 8.9 k/uL (3.8-10.6)
[2020-05-21 13:41] LABS: ALT 38 U/L (4-49); AST 52 U/L (17-59); African American GFR (CKD) >90 (>60 ml/min/1.73 sqM); Albumin 3.7 g/dL (3.5-5.0); Alkaline Phosphatase 85 U/L (38-126); Anion Gap 9 mmol/L; Blood Urea Nitrogen 12 mg/dL (9-20); Calcium 8.9 mg/dL (8.4-10.2); Carbon Dioxide 26 mmol/L (22-30); Chloride 104 mmol/L (98-107); Glucose 112 mg/dL (74-99); Magnesium 1.4 mg/dL (1.6-2.3); Non-African American GFR(CKD) >90 (>60 ml/min/1.73 sqM); Potassium 3.7 mmol/L (3.5-5.1); Sodium 139 mmol/L (137-145); Total Bilirubin 1.1 mg/dL (0.2-1.3); Total Protein 6.6 g/dL (6.3-8.2)
[2020-05-21 13:44] LABS: Prothrombin Time 10.4 sec (9.0-12.0)
--- NOTE | 2020-05-21 14:05 | XR ---
EXAMINATION TYPE: XR chest 2V DATE OF EXAM: 05/21/2020 COMPARISON: Chest x-ray March 14, 2019. HISTORY: Weakness and syncope. TECHNIQUE: Frontal and lateral views of the chest are obtained. FINDINGS: There is chronic emphysematous change without suspicious focal air space opacity, pleural effusion, or pneumothorax seen. The cardiac silhouette size remains within normal limits with athero sclerotic change in the aortic knob. The osseous structures remain intact. Cholecystectomy clips ar e redemonstrated. IMPRESSION: Chronic changes without acute pulmonary process.
--- NOTE | 2020-05-21 14:10 | CT ---
EXAMINATION TYPE: CT brain wo con DATE OF EXAM: 05/21/2020 COMPARISON: 02/02/2020 HISTORY: GARSIA, weakness CT DLP: 1051.4 mGycm Automated exposure control for dose reduction was used. FINDINGS: Generalized degenerative change stable. Faint periventricular low attenuation most typical of remote white matter ischemia. No acute hemorrhage or mass effect. Calvarium intact. Atherosclerotic change aorta. No acute hemorrhage or mass effect. There is nodular prominence the lef t MCA. IMPRESSION: 1. Mild degenerative change. However, there is nodular prominence of the left MCA bifurcation suspici ous for an aneurysm. Recommend follow-up [facility] [place].
[2020-05-21] MEDS ORDERED: MAGNESIUM SULFATE-D5W PMX 1 GM in DEXTROSE/WATER 1 100ML.BAG IVPB ONE (15:08)
[2020-05-21 15:12] LABS: Appearance,Urine Clear (Clear); Bacteria,Urine Rare /hpf; Bilirubin,Urine 1+ (Negative); Blood,Urine Negative (Negative); Color,Urine Yellow; Glucose,Urine (UA) Negative (Negative); Hyaline Casts,Urine 1 /lpf (0-2); Ketones,Urine Negative (Negative); Leukocyte Esterase,Urine Negative (Negative); Mucus,Urine Many /hpf; Nitrite,Urine Negative (Negative); Protein,Urine 1+ (Negative); RBC,Urine <1 /hpf (0-5); Specific Gravity,Urine 1.031 (1.001-1.035); Squamous Epithelial Cell,Urine <1 /hpf (0-4); WBC,Urine 1 /hpf (0-5)
--- NOTE | 2020-05-21 16:02 | CT ---
CT angiogram of the [place] [facility] [place] HISTORY: Headache Helical acquisition obtained through the brain during dynamic administration 100 cc Isovue-370 IV Three-dimensional reconstructions performed on an alternate workstation. Automated exposure control f or dose reduction. DLP 1155.[address] brain 05/21/2020 Internal carotid arteries are patent, there is atheromatous change noted. There is no evident aneurys m, dissection, or embolus. Left vertebral artery is dominant, vertebral basilar system is patent. IMPRESSION: No evident aneurysm.
[2020-05-21 16:41] VITALS: BP 143/95; PULSE 80; RESP 18; TEMP 98
== END 2020-05-21 16:42 | disposition home or self-care (01) ==
LOC: EC 11:32
DX: R51.9 Headache, unspecified (principal); E86.0 Dehydration; R53.83 Other fatigue; R79.89 Other specified abnormal findings of blood chemistry; F17.200 Nicotine dependence, unspecified, uncomplicated; I25.119 Atherosclerotic heart disease of native coronary artery with unspecified angina pectoris; I10 Essential (primary) hypertension; M06.9 Rheumatoid arthritis, unspecified; Z79.899 Other long term (current) drug therapy; Z95.5 Presence of coronary angioplasty implant and graft
CPT/HCPCS: 99285 ×2; 96365 ×2; 96375 ×4; 96361 ×2; 36415; 93005; 83880; 80053; 83605; 83735; 84484; 85025; 85610; 85730; 81001; 71046; 70496; 70450; J2765; J1170; J3475; Q9967

== ENCOUNTER 2020-06-11 08:21 | Emergency (ER) | payer MEDICARE, BC ==
[2020-06-11 08:26] VITALS: RESP 18
[2020-06-11] MEDS ORDERED: HYDROmorphone 1 MG/ML 1 ML SYRINGE IM STA (08:39)
--- NOTE | 2020-06-11 09:17 | ED ---
Upper Extremity HPI - General Chief Complaint: Extremity Injury, Upper Stated Complaint: Fall, Head Injury Time Seen by Provider: 06/11/20 08:30 Source: patient, RN notes reviewed Mode of arrival: wheelchair Limitations: physical limitation - History of Present Illness Initial Comments: 74-year-old male presents emergency department she went of right shoulder, chest wall pain. Patient states that he went to get up on a bench for painting yesterday and states that he fell off into a cabinet. He states he bumped his head he has not went of headache but he does take aspirin and Plavix. Patient states there is bruising on his right upper chest shoulder region states is painful. Pain worse with movement and deep inspiration. No abdominal pain no back pain. Patient states he did not lose consciousness. - Related Data Home Medications Medication Instructions Recorded Confirmed Metoprolol Tartrate 12.5 mg PO DAILY 12/16/18 05/02/20 Acetaminophen-Codeine 300-30mg 1 tab PO Q8H PRN 02/02/20 05/02/20 [Tylenol w/codeine #3] EPINEPHrine (Auto Inject) [Epipen] 0.3 mg IM ONCE PRN 02/02/20 05/01/20 Nitroglycerin Sl Tabs [Nitrostat] 0.4 mg SL Q5M PRN 02/02/20 05/01/20 Isosorbide Mononitrate ER [Imdur] 30 mg PO DAILY 05/01/20 05/02/20 Rosuvastatin [Crestor] 20 mg PO DAILY 05/01/20 05/02/20 Previous Rx's Medication Instructions Recorded Folic Acid 1 mg PO DAILY #30 tablet 02/05/20 Meclizine [Antivert] 12.5 mg PO Q8HR PRN #30 tablet 02/05/20 Thiamine [Vitamin B-1] 100 mg PO DAILY #30 tablet 02/05/20 Aspirin 81 mg PO DAILY #90 chewable 05/03/20 Clopidogrel Bisulfate [Plavix] 75 mg PO DAILY #90 tab 05/03/20 Allergies Allergy/AdvReac Type Severity Reaction Status Date / Time venom-honey bee Allergy Anaphylaxis Verified 06/11/20 08:26 [bee venom (honey bee)] Review of Systems ROS Statement: Those systems with pertinent positive or pertinent negative responses have been documented in the HPI. ROS Other: All systems not noted in ROS Statement are negative. Past Medical History Past Medical History: Coronary Artery Disease (CAD), Chest Pain / Angina, Hypertension, Rheumatoid Arthritis (RA) Additional Past Medical History / Comment(s): HX OF DIVERTICULTIS. History of Any Multi-Drug Resistant Organisms: None Reported Past Surgical History: Bowel Resection, Heart Catheterization With Stent Additional Past Surgical History / Comment(s): RETINOL DETACHMENT REPAIR (6 ON LEFT, 1 ON RIGHT). colon reconstrucion Past Anesthesia/Blood Transfusion Reactions: No Reported Reaction Date of Last Stent Placement:: UNKNOWN DATE 2009 Past Psychological History: No Psychological Hx Reported Smoking Status: Current every day smoker Past Alcohol Use History: Heavy Past Drug Use History: None Reported - Past Family History Daughter(s) Family Medical History: Cancer Additional Family Medical History / Comment(s): breast cancer General Exam Limitations: physical limitation General appearance: alert, in no apparent distress Head exam: Present: atraumatic, normocephalic, normal inspection Eye exam: Present: normal appearance, PERRL, EOMI. Absent: scleral icterus, conjunctival injection, periorbital swelling ENT exam: Present: normal exam, normal oropharynx, mucous membranes moist, TM's normal bilaterally Neck exam: Present: normal inspection, full ROM. Absent: tenderness, meningismus, lymphadenopathy Respiratory exam: Present: normal lung sounds bilaterally, chest wall tenderness (Large area of ecchymosis in the right upper chest, clavicular region, severe times with palpation). Absent: respiratory distress, wheezes, rales, rhonchi, stridor Cardiovascular Exam: Present: regular rate, normal rhythm, normal heart sounds. Absent: systolic murmur, diastolic murmur, rubs, gallop, clicks GI/Abdominal exam: Present: soft, normal bowel sounds. Absent: distended, tenderness, guarding, rebound, rigid Extremities exam: Present: other (Pain with range of motion right shoulder mild tenderness no obvious deformity neurovascular intact) Back exam: Present: full ROM. Absent: tenderness, paraspinal tenderness, vertebral tenderness Neurological exam: Present: alert, oriented X3, CN II-XII intact, reflexes normal. Absent: motor sensory deficit Skin exam: Present: warm, dry, intact, normal color. Absent: rash Course Vital Signs 06/11/20 08:23 Temperature 98.1 F Pulse Rate 59 L Respiratory 18 Rate Blood Pressure 131/86 O2 Sat by Pulse 97 Oximetry Medical Decision Making - Medical Decision Making CT shows evidence of clavicular fracture with surrounding hematoma patient CT her brain and C-spine did not reveal any acute findings. Patient's injury was 24 hours old activities trauma was not called this time. Patient we discharged with a sling, pain medication follow-up with orthopedics. Disposition Clinical Impression: Right clavicle fracture, Hematoma of right chest wall Disposition: HOME SELF-CARE Condition: Stable Instructions (If sedation given, give patient instructions): Clavicle Fracture (ED) Additional Instructions: Please return to the Emergency Department if symptoms worsen or any other concerns. Is patient prescribed a controlled substance at d/c from ED?: No Referrals: Aguilar Thurston Jr, DO [Primary Care Provider] - 1-2 days Teja Simental MD [STAFF PHYSICIAN] - 1-2 days Time of Disposition: 09:39
--- NOTE | 2020-06-11 09:26 | CT ---
EXAMINATION TYPE: CT brain [place] wo con DATE OF EXAM: 06/11/2020 COMPARISON: CT brain 05/21/2020 HISTORY: 74-year-old male Fall, head injury, pain CT DLP: 1324.6 mGycm Automated exposure control for dose reduction was used. Technique: Examination of the head was done in axial plane without intravenous contrast. Coronal and sagittal reconstructions performed. CT of the cervical spine was obtained in axial plane without intravenous injection of contrast mater ial. Coronal and sagittal reformatted images were obtained from the axial views for evaluation of f ractures, spinal alignment and canal. FINDINGS: Head: There is no evidence of acute intracranial hemorrhage, acute ischemic changes, mass, mass-effect, or extra-axial fluid collection. There is no effacement of cerebral sulci or basal subarachnoid cister ns. There is no hydrocephalus. There is no midline shift. Albarran-white matter distinction is preserv ed. Partial opacification right mastoid air cells. Rightward nasal septal deviation. Orbits and globes ar e intact. Mild age-related supratentorial volume loss Cervical spine: There is hematoma and bleeding along the right base of the neck associated with a displaced and commi nuted fracture of the medial right clavicle. No craniocervical junction abnormality, predental space widening, or prevertebral soft tissue swellin g. Moderate to advanced disc/endplate degenerative changes especially from C4 through C7 levels. Degenerative grade 1 retrolisthesis C6-C7 grade 1 anterolisthesis C7-T1 and T1-T2. No acute fracture of the cervical spine. Multilevel hypertrophic facet and uncovertebral joint arthropathy. Minimal mild/moderate neuroforaminal stenosis throughout. The alignment of the cervical spine is norm al on coronal and reformatted images. There is no cranial vertebral abnormality. Fracture of the cerv ical spine is not seen. . There is no evidence of focal disk herniation. There is no central spinal c anal stenosis. Sagittal and coronal reformatted images confirm above findings. COMBINED IMPRESSION: 1. No acute intracranial abnormality seen. 2. Displaced and comminuted fracture of the medial right clavicle with associated surrounding hemorrh age and intramuscular hematoma in the lower right sternocleidomastoid muscle. 3. No acute fracture of the cervical spine. Degenerative grade 1 spondylolisthesis seen at C6-C7, C7- T1, and T1-T2. Moderate multilevel spondylotic change. 4. Some trapped fluid in the right mastoid air cells. Correlate for any mastoid pain to exclude masto iditis.
--- NOTE | 2020-06-11 09:32 | CT ---
EXAMINATION TYPE: CT chest wo con DATE OF EXAM: 06/11/2020 COMPARISON: 07/26/2015 HISTORY: 74-year-old male with pain after Fall and trauma. Right chest swelling and bruising. TECHNIQUE: Contiguous axial scanning of the chest without IV contrast. Coronal and sagittal reconstru ctions performed. CT DLP: 359.8 mGycm Automated exposure control for dose reduction was used. FINDINGS: Heart normal size without pericardial effusion. Extensive three-vessel coronary artery calcifications are present. Ectatic aortic root at 3.6 cm and ascending aorta at 3.6 cm. Mild amount of atherosclerotic arch calc ifications with conventional arch vessel branching anatomy. Mild bilateral gynecomastia. No thoracic lymphadenopathy by CT size criteria. No consolidation, pneumothorax, or pleural effusion. Some dependent atelectasis is noted at the poste rior lung bases especially on the right. Visualized upper abdomen shows right upper pole renal cyst measuring up to 4.0 cm in cholecystectomy clips. Similar dilated bile duct. Bones: There is a comminuted fracture of the medial right clavicle. Angulated butterfly fragment measures up to 2.5 cm and is overall 1.7 cm of inferior displacement of the lateral portion of the clavicle relative to the clavicular head. Bruising and soft tissue swelling and some hematoma within the overlying right pectoralis major and r ight sternocleidomastoid. IMPRESSION: 1. COMMINUTED FRACTURE OF THE MEDIAL RIGHT CLAVICLE. AN ANGULATED BUTTERFLY FRAGMENT MEASURES 2.5 CM AND THERE IS OVERALL 1.7 CM OF ANTERIOR DISPLACEMENT OF THE LATERAL PORTION OF THE DISTAL CLAVICLE RE LATIVE TO THE CLAVICULAR HEAD. 2. ADJACENT BRUISING AND HEMORRHAGE INTO THE OVERLYING PECTORALIS MAJOR AND RIGHT STERNOCLEIDOMASTOID . 3. COPD WITH EXTENSIVE THREE-VESSEL CORONARY ARTERY CALCIFICATIONS. 4. NO ACUTE PULMONARY PROCESS.
[2020-06-11 10:24] VITALS: BP 126/78; PULSE 66; TEMP 98.3
== END 2020-06-11 10:24 | disposition home or self-care (01) ==
LOC: EC 08:21
DX: S42.021A Displaced fracture of shaft of right clavicle, initial encounter for closed fracture (principal); S20.211A Contusion of right front wall of thorax, initial encounter; F17.200 Nicotine dependence, unspecified, uncomplicated; I10 Essential (primary) hypertension; Z79.899 Other long term (current) drug therapy; Z91.030 Bee allergy status; Z90.49 Acquired absence of other specified parts of digestive tract; Z95.5 Presence of coronary angioplasty implant and graft; W22.03XA Walked into furniture, initial encounter; W19.XXXA Unspecified fall, initial encounter
CPT/HCPCS: 72125; 70450; 71250; 99283; 96372; J1170

== ENCOUNTER 2020-11-08 06:47 | Observation (INO) | payer MEDICARE, BC ==
[2020-11-08] MEDS ORDERED: ASPIRIN 81 MG PO STA (07:04)
[2020-11-08] MEDS ORDERED: IPRATROPIUM-ALBUTEROL 3 ML NEB INHALATION STA (07:04)
[2020-11-08 07:16] LABS: Basophils # (A) 0.1 k/uL (0-0.2); Basophils % (A) 1 %; Eosinophils # (A) 0.2 k/uL (0-0.7); Eosinophils % (A) 2 %; HCT 48.7 % (39.0-53.0); HGB 16.3 gm/dL (13.0-17.5); Lymphocytes # (A) 2.4 k/uL (1.0-4.8); Lymphocytes % (A) 21 %; MCH 34.7 pg (25.0-35.0); MCHC 33.6 g/dL (31.0-37.0); MCV 103.2 fL (80.0-100.0); Macrocytosis Slight; Mean Platelet Volume 7.8; Monocytes # (A) 0.8 k/uL (0-1.0); Monocytes % (A) 7 %; Neutrophils # (A) 7.8 k/uL (1.3-7.7); Neutrophils % (A) 67 %; Platelet Count 285 k/uL (150-450); RBC 4.72 m/uL (4.30-5.90); RDW 13.2 % (11.5-15.5); WBC 11.6 k/uL (3.8-10.6)
[2020-11-08 07:26] LABS: ALT 19 U/L (4-49); AST 29 U/L (17-59); African American GFR (CKD) >90 (>60 ml/min/1.73 sqM); Albumin 3.8 g/dL (3.5-5.0); Alkaline Phosphatase 99 U/L (38-126); Anion Gap 9 mmol/L; Blood Urea Nitrogen 12 mg/dL (9-20); Calcium 9.2 mg/dL (8.4-10.2); Carbon Dioxide 20 mmol/L (22-30); Chloride 101 mmol/L (98-107); Glucose 123 mg/dL (74-99); Magnesium 1.8 mg/dL (1.6-2.3); Non-African American GFR(CKD) >90 (>60 ml/min/1.73 sqM); Potassium 4.2 mmol/L (3.5-5.1); Sodium 130 mmol/L (137-145); Total Protein 6.7 g/dL (6.3-8.2)
--- NOTE | 2020-11-08 07:28 | XR ---
EXAMINATION TYPE: XR chest 2V DATE OF EXAM: 11/08/2020 COMPARISON: 05/21/2020 INDICATION: Chest pain TECHNIQUE: Frontal and lateral views of the chest are obtained. FINDINGS: The heart size is normal. The pulmonary vasculature is normal. The lungs are clear. There is hyperinflation. IMPRESSION: 1. No acute pulmonary process. 2. COPD
[2020-11-08 07:41] LABS: Partial Thromboplastin Time 25.4 sec (22.0-30.0); Prothrombin Time 10.3 sec (9.0-12.0)
--- NOTE | 2020-11-08 08:33 | ED ---
Chest Pain HPI - General Chief Complaint: Chest Pain Stated Complaint: Chest pain Time Seen by Provider: 11/08/20 06:56 Source: patient, RN notes reviewed Mode of arrival: wheelchair Limitations: no limitations - History of Present Illness Initial Comments: This a 75-year-old male presents emergency department chief complaint of chest tightness, pressure. Patient states started last night worsened. Patient states that he also pass out today from chest discomfort and states that he is had. Patient complains of severe headache. Patient had stents placed in April. Patient states pain is similar to chest pain he's had in the past. Patient denies any fevers chills he is a daily smoker states he was to stop his Plavix. Patient does note some shortness breath states is chronic. - Related Data Home Medications Medication Instructions Recorded Confirmed Metoprolol Tartrate 12.5 mg PO DAILY 12/16/18 05/02/20 Acetaminophen-Codeine 300-30mg 1 tab PO Q8H PRN 02/02/20 05/02/20 [Tylenol w/codeine #3] EPINEPHrine (Auto Inject) [Epipen] 0.3 mg IM ONCE PRN 02/02/20 05/01/20 Nitroglycerin Sl Tabs [Nitrostat] 0.4 mg SL Q5M PRN 02/02/20 05/01/20 Isosorbide Mononitrate ER [Imdur] 30 mg PO DAILY 05/01/20 05/02/20 Rosuvastatin [Crestor] 20 mg PO DAILY 05/01/20 05/02/20 Previous Rx's Medication Instructions Recorded Folic Acid 1 mg PO DAILY #30 tablet 02/05/20 Meclizine [Antivert] 12.5 mg PO Q8HR PRN #30 tablet 02/05/20 Thiamine [Vitamin B-1] 100 mg PO DAILY #30 tablet 02/05/20 Aspirin 81 mg PO DAILY #90 chewable 05/03/20 Clopidogrel Bisulfate [Plavix] 75 mg PO DAILY #90 tab 05/03/20 HYDROcodone/APAP 5-325MG [[place] 5] 1 each PO Q6HR PRN #12 tab 06/11/20 Allergies Allergy/AdvReac Type Severity Reaction Status Date / Time venom-honey bee Allergy Anaphylaxis Verified 11/08/20 06:53 [bee venom (honey bee)] Review of Systems ROS Statement: Those systems with pertinent positive or pertinent negative responses have been documented in the HPI. ROS Other: All systems not noted in ROS Statement are negative. EKG Findings - EKG Comments: EKG Findings:: EKG performed at 17:01 normal sinus rhythm rate of 86 LA 152 QRS 82 QT/QTC 380/454 Past Medical History Past Medical History: Coronary Artery Disease (CAD), Chest Pain / Angina, H ypertension, Rheumatoid Arthritis (RA) Additional Past Medical History / Comment(s): HX OF DIVERTICULTIS. History of Any Multi-Drug Resistant Organisms: None Reported Past Surgical History: Bowel Resection, Heart Catheterization With Stent Additional Past Surgical History / Comment(s): RETINOL DETACHMENT REPAIR (6 ON LEFT, 1 ON RIGHT). colon reconstrucion Past Anesthesia/Blood Transfusion Reactions: No Reported Reaction Date of Last Stent Placement:: UNKNOWN DATE 2009 Past Psychological History: No Psychological Hx Reported Smoking Status: Current every day smoker Past Alcohol Use History: Heavy Past Drug Use History: None Reported - Past Family History Daughter(s) Family Medical History: Cancer Additional Family Medical History / Comment(s): breast cancer General Exam Limitations: no limitations Course Vital Signs 11/08/20 11/08/20 11/08/20 06:48 07:41 07:57 Temperature 98.3 F Pulse Rate 95 83 93 Respiratory 24 Rate Blood Pressure 111/83 O2 Sat by Pulse 99 Oximetry 11/08/20 11/08/20 11/08/20 07:59 08:53 09:34 Temperature Pulse Rate 91 101 H 102 H Respiratory 16 20 16 Rate Blood Pressure 104/87 112/79 94/76 O2 Sat by Pulse 97 96 97 Oximetry Chest Pain MDM - MDM 75-year-old male presented for chest pain equal episode. Patient's initial work up was negative though patient has multiple risk factors will be admitted for cardiology evaluation case discussed with Dr. Thurston Disposition Clinical Impression: Syncope, Chest pain Disposition: ADMITTED IP TO THIS HOSP Condition: Fair Referrals: Aguilar Thurston Jr, DO [Primary Care Provider] - 1-2 days
--- NOTE | 2020-11-08 09:13 | CT ---
EXAMINATION TYPE: CT brain cspine wo con DATE OF EXAM: 11/08/2020 COMPARISON: Prior trauma CT June 11, 2020 HISTORY: Fall injury yesterday with headache and neck pain CT DLP: 1338.9 mGycm. Automated Exposure Control for Dose Reduction was Utilized. TECHNIQUE: CT scan of the head and cervical spine are performed without contrast. FINDINGS: There is no acute intracranial hemorrhage hemorrhage or midline shift identified. Mild to moderate ventricular and sulcal prominence redemonstrated. Albarran-white matter differentiation maintai manpreet. The calvarium is intact. Nasal septum redemonstrated deviated to right of midline. The globes ar e intact and the visualized sinuses are clear. Cervical spine is visualized in its entirety from C1 through upper thoracic levels and redemonstrates multilevel spondylolisthesis or grade 1 retrolisthesis C3 on C4, C4 and C5, C5 on C6, and C6 on C7. Vertebral body heights are maintained. Moderate to advanced thigh level disc space narrowing with mod erate to severe anterior spurring is greatest at C5-C6 and C6-C7 level similar to prior. Posterior sp ur disc complexes efface the anterior thecal sac C3-C4 and to a greater degree C4-C5 through C6-C7 le vels. No acute fracture or dislocation is seen. Prevertebral soft tissue appears within normal limits . The C1-C2 articulation is within normal limits on the coronal images. Axial images show multileve l uncovertebral facet degenerative changes contributing to multilevel bilateral neural foraminal narr owing. There is moderate to severe right greater than left carotid bulb vascular calcification redemo nstrated. Lung apices show no pneumothorax. IMPRESSION: 1. There is no acute fracture or dislocation evident in the cervical spine. 2. No acute intracranial hemorrhage or midline shift is seen. No significant change from prior.
[2020-11-08] MEDS ORDERED: ONDANSETRON 4 MG/2 ML VIAL IVP STA (09:36)
[2020-11-08] MEDS ORDERED: MORPHINE SULFATE 4 MG/ML SYRINGE IVP STA (09:36)
[2020-11-08] MEDS ORDERED: HEPARIN SODIUM 1,000 UN/ML (10ML VL) IV ONE (09:51)
[2020-11-08] MEDS ORDERED: NITROGLYCERIN SL TABS 0.4 MG TAB SUBLINGUAL PRN (09:51)
[2020-11-08] MEDS: HEPARIN SOD,PORK IN 0.45% NACL 25,000 UNIT in 0.45% NACL 1 250ML.BAG IV SCH (10:14)
[2020-11-08] MEDS ORDERED: PANTOPRAZOLE 40 MG/10 ML VIAL IVP SCH (10:45)
--- NOTE | 2020-11-08 13:40 | ECHOF ---
Referral Reason: MEASUREMENTS -------- HEIGHT: 172.7 cm WEIGHT: 56.7 kg BP: IVSd: 1.0 cm (0.6 - 1.1) LVIDd: 3.0 cm (3.9 - 5.3) LVPWd: 1.1 cm (0.6 - 1.1) IVSs: 1.7 cm LVIDs: 1.1 cm LVPWs: 1.0 cm Ao Diam: 3.8 cm (2.0 - 3.7) AV Cusp: 2.3 cm (1.5 - 2.6) LA Diam: 3.5 cm (2.7 - 3.8) MV EXCURSION: 14.056 mm (> 18.000) MV EF SLOPE: 45 mm/s (70 - 150) EPSS: 1.4 cm MV E [place]: 0.63 m/s MV DecT: 130 ms MV A [place]: 0.68 m/s MV E/A Ratio: 0.92 RAP: 5.00 mmHg RVSP: 10.49 mmHg FINDINGS -------- This was a technically difficult study with suboptimal views. The left ventricular size is normal. Left ventricular wall thickness is normal. Overall left vent ricular systolic function is normal with, an EF between 55 - 60 %. The RV was not well visualized. The left atrial size is normal. The right atrial size is normal. Lumason used The aortic valve was not well visualized. The mitral valve is normal. There is trace mitral regurgitation. The tricuspid valve appears structurally normal. Trace tricuspid regurgitation present. Right fe tricular systolic pressure is normal at < 35 mmHg. The pulmonic valve was not well visualized. The aortic root size is normal. Normal inferior vena cava with normal inspiratory collapse consistent with estimated right atrial pre ssure of 5 mmHg. There is no pericardial effusion. CONCLUSIONS -------- 1. The left ventricular size is normal. 2. Left ventricular wall thickness is normal. 3. Overall left ventricular systolic function is normal with, an EF between 55 - 60 %. 4. There is trace mitral regurgitation. 5. Trace tricuspid regurgitation present. 6. There is no pericardial effusion. FITTER UP: Cherise Fierro [facility]
[2020-11-08] MEDS ORDERED: ACETAMINOPHEN TAB 325 MG TAB PO PRN (17:05)
[2020-11-08] MEDS ORDERED: Magnesium Replacement Protocol 1 EACH MISC MISCELLANE PRN (17:50)
--- NOTE | 2020-11-08 17:52 | P.HPIM ---
History of Present Illness H&P Date: 11/08/20 Chief Complaint: Chest pain This is a 75-year-old gentleman with past medical history of CAD, hypertension, hyperlipidemia, nicotine and alcohol abuse, recent cardiac catheterization, April 2020 with 85% proximal to mid LAD involving diagonal 1, successful PCI of proximal to mid LAD with angioplasty of diagonal 1 and LAD, mild to moderate disease elsewhere including 50% and mid LAD and 30-40% proximal RCA-recommending maximizing medical treatment of proximal RCA and mid LAD, presented to the ER with fluttering chest pressure for the last few days, recent last night and into 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 He complains of headache, stated he received IV morphine in the ER with good relief of headache and asking for more. CT brain C-spine reported no acute abnormality, no acute fracture or dislocation evident in the C-spine, no acute intracranial hemorrhage or midline shift, no significant change from prior. Denies cough or congestion. Denies fever or chills. Chest x-ray reported no acute pulmonary process.Troponin is negative 2, EKG normal sinus rhythm ,echo pending. Afebrile, WBC 11.6, MCV 103.2, otherwise hematology unremarkable. Coagulation unremarkable. Sodium 1:30, potassium 4.2, bicarbonate 20, BUN 12, creatinine 0.64, glucose 123, magnesium 1.8. Review of Systems ROS Statement: Those systems with pertinent positive or pertinent negative responses have been documented in the HPI. ROS Other: All systems not noted in ROS Statement are negative. Past Medical History Past Medical History: Coronary Artery Disease (CAD), Chest Pain / Angina, Hypertension, Rheumatoid Arthritis (RA) Additional Past Medical History / Comment(s): HX OF DIVERTICULTIS. skin CA. History of Any Multi-Drug Resistant Organisms: None Reported Past Surgical History: Bowel Resection, Cholecystectomy, Heart Catheterization With Stent Additional Past Surgical History / Comment(s): RETINOL DETACHMENT REPAIR (6 ON LEFT, 1 ON RIGHT). colon reconstrucion. heart cath with stents. testical removed. Past Anesthesia/Blood Transfusion Reactions: No Reported Reaction Date of Last Stent Placement:: UNKNOWN DATE APPROX 2009 Past Psychological History: No Psychological Hx Reported Smoking Status: Current every day smoker Past Alcohol Use History: Heavy Additional Past Alcohol Use History / Comment(s): SMOKES ABOUT 2-3 CIG PER DAY, SINCE WAS AGE 23 YRS. GLASS 0F WINE Past Drug Use History: None Reported - Past Family History Daughter(s) Family Medical History: Cancer Additional Family Medical History / Comment(s): breast cancer Medications and Allergies Home Medications Medication Instructions Recorded Confirmed Type Acetaminophen-Codeine 300-30mg 1 tab PO Q8H PRN 02/02/20 11/08/20 History [Tylenol w/codeine #3] EPINEPHrine (Auto Inject) [Epipen] 0.3 mg IM ONCE PRN 02/02/20 11/08/20 History Clopidogrel Bisulfate [Plavix] 75 mg PO DAILY #90 tab 05/03/20 11/08/20 Rx Aspirin EC [Ecotrin Low Dose] 81 mg PO DAILY 11/08/20 11/08/20 History Bisoprolol-Hctz 2.5-6.25 mg [Ziac 1 tab PO DAILY 11/08/20 11/08/20 History 2.5-6.25 MG] Allergies Allergy/AdvReac Type Severity Reaction Status Date / Time venom-honey bee Allergy Anaphylaxis Verified 11/08/20 10:18 [bee venom (honey bee)] Physical Exam Vitals: Vital Signs Temp Pulse Pulse Resp BP BP Pulse Ox 11/08/20 15:19 96 11/08/20 14:33 97.8 F 85 18 108/72 96 11/08/20 13:41 89 18 11/08/20 12:55 89 18 11/08/20 12:54 97.9 F 89 18 105/74 97 11/08/20 10:42 89 18 92/70 98 11/08/20 10:17 94 18 102/78 98 11/08/20 10:01 93 16 104/79 96 11/08/20 09:34 102 H 16 94/76 97 11/08/20 08:53 101 H 20 112/79 96 11/08/20 07:59 91 16 104/87 97 11/08/20 07:57 93 11/08/20 07:41 83 11/08/20 06:48 98.3 F 95 24 111/83 99 Intake and Output 11/08/20 11/08/20 11/08/20 06:59 14:59 22:59 Other: Voiding Method Urinal Weight 56.699 kg 56.699 kg General: [Cachectic, alert and oriented 3, sitting up in bed, no acute di stress. HEENT: [PERRL. EOMI. No pharyngeal erythema or exudate.] Neck: Supple, no JVD Cardiac: [Heart regular in rate and rhythm. No S3. No S4. No clicks, rubs. No murmur.] Lungs: [Clear to auscultation bilaterally.] Abdomen: [No mass. No organomegaly. Bowel sounds presnt and normoactive in all 4 quadrants.] Extremes: [No edema no cyanosis no claudication normal pulses] Skin: Warm and dry, No rash. Neurologic: [No lateralizing deficits. CN II - XII grossly intact.] Lymphatic: [No adenopathy. Results CBC & Chem 7: 11/08/20 07:08 11/08/20 07:08 Labs: Abnormal Lab Results - Last 24 Hours (Table) 11/08/20 11/08/20 Range/Units 07:08 07:08 WBC 11.6 H (3.8-10.6) k/uL MCV 103.2 H (80.0-100.0) fL Neutrophils # 7.8 H (1.3-7.7) k/uL Sodium 130 L (137-145) mmol/L Carbon Dioxide 20 L (22-30) mmol/L Creatinine 0.64 L (0.66-1.25) mg/dL Glucose 123 H (74-99) mg/dL Thrombosis Risk Factor Assmnt - Choose All That Apply Any of the Below Risk Factors Present?: No Other Risk Factors: Yes Each Risk Factor Represents 2 Points: Age 61-74 years Other congenital or acquired thrombophilia - If yes, enter type in comment: No Thrombosis Risk Factor Assessment Total Risk Factor Score: 2 Thrombosis Risk Factor Assessment Level: Low Risk Assessment and Plan Assessment: Chest pain Syncope Dehydration secondary to poor water intake Dizziness, secondary to the above Alcohol abuse Nicotine dependence, decreased to 6 cigarettes per day Moderate protein calorie malnutrition, secondary to poor diet intake COPD, stable History of diverticulitis Plan: Continue on current medication regime ,monitoring and symptomatic treatment. Cardiology consult in place, recommendations pending. Potential stress test-difer to cardiology with discharge planning in progress for later today pending final DC recommendations and clearance from cardiology. Smoking and alcohol cessation reinforced. GI prophylaxis in place with PPI. DVT prophylaxis-maintained on heparin drip. The impression and plan of care has been dictated as directed. : I performed a history and examination of this patient, discussed the same with the dictator. I agree with the dictator's note ,documented as a scribe. Any additional findings or plans will be noted.
[2020-11-08] MEDS: NICOTINE 14MG/24HR PATCH TRANSDERM SCH (18:10)
[2020-11-08] MEDS: CLOPIDOGREL 75 MG TAB PO SCH (18:11)
[2020-11-08] MEDS ORDERED: HEPARIN SODIUM 1,000 UN/ML (10ML VL) IV PRN (18:40)
[2020-11-08] MEDS: BISOPROLOL 5 MG TAB PO SCH (19:07)
[2020-11-09] MEDS: BUTALB/APAP/CAFF 50-325-40MG TAB PO PRN ×2 (00:53→08:53)
[2020-11-09 02:55] VITALS: RESP 18
[2020-11-09] MEDS ORDERED: PANTOPRAZOLE 40 MG TABLET PO SCH (07:30)
[2020-11-09 08:24] VITALS: BP 132/75; PULSE 99; TEMP 98.2
[2020-11-09] MEDS: BISOPROLOL 5 MG TAB PO SCH (08:53)
[2020-11-09] MEDS: CLOPIDOGREL 75 MG TAB PO SCH (08:54)
[2020-11-09] MEDS: NICOTINE 14MG/24HR PATCH TRANSDERM SCH (08:54)
[2020-11-09] MEDS ORDERED: ASPIRIN 325 MG TAB PO SCH (09:00)
[2020-11-09 09:19] LABS: Basophils # (A) 0.1 k/uL (0-0.2); Basophils % (A) 1 %; Eosinophils # (A) 0.2 k/uL (0-0.7); Eosinophils % (A) 2 %; HCT 45.4 % (39.0-53.0); HGB 15.3 gm/dL (13.0-17.5); Lymphocytes # (A) 1.5 k/uL (1.0-4.8); Lymphocytes % (A) 19 %; MCH 35.6 pg (25.0-35.0); MCHC 33.8 g/dL (31.0-37.0); MCV 105.3 fL (80.0-100.0); Macrocytosis Slight; Mean Platelet Volume 8.4; Monocytes # (A) 0.6 k/uL (0-1.0); Monocytes % (A) 8 %; Neutrophils # (A) 5.6 k/uL (1.3-7.7); Neutrophils % (A) 68 %; Platelet Count 213 k/uL (150-450); RBC 4.31 m/uL (4.30-5.90); RDW 12.5 % (11.5-15.5); WBC 8.2 k/uL (3.8-10.6)
[2020-11-09] MEDS ORDERED: Acetaminophen-Codeine 300-30mg TAB PO PRN (09:58)
[2020-11-09] MEDS: HEPARIN SOD,PORK IN 0.45% NACL 25,000 UNIT in 0.45% NACL 1 250ML.BAG IV SCH (10:09)
--- NOTE | 2020-11-09 10:13 | P.DS ---
Providers Date of admission: 11/08/20 09:34 Expected date of discharge: 11/09/20 Attending physician: Aguilar Thurston Consults: 11/08/20 09:51 Consult Physician Urgent Consulting Provider: Yosef Bender Consult Reason/Comments: Chest pain Do you want consulting provider notified?: Yes Primary care physician: Aguilar Thurston Assessment: General: [Patient awake, alert and oriented times 3. Patient in no acute distress.] HEENT: [PERRL. EOMI. No pharyngeal erythema or exudate.] Neck: [No adenopathy.] Cardiac: [Heart regular in rate and rhythm. No S3. No S4. No clicks, rubs. No murmur.] Lungs: [Clear to auscultation bilaterally.] Abdomen: [No mass. No organomegaly. Bowel sounds presnt and normoactive in all 4 quadrants.] Extremes: [No edema no cyanosis no claudication normal pulses] : [] Musculoskeletal: [No joint erythema, edema or tenderness.] Skin: [No rash.] Neurologic: [No lateralizing deficits. CN II - XII grossly intact.] Lymphatic: [No adenopathy.] Patient Condition at Discharge: Fair Plan - Discharge Summary Discharge Rx Participant: No New Discharge Prescriptions: No Action RX: EPINEPHrine (Auto Inject) [Epipen] 0.3 mg IM ONCE PRN PRN Reason: Anaphylaxis RX: Acetaminophen-Codeine 300-30mg [Tylenol w/codeine #3] 1 tab PO Q8H PRN PRN Reason: Pain Clopidogrel Bisulfate [Plavix] 75 mg PO DAILY #90 tab Bisoprolol-Hctz 2.5-6.25 mg [Ziac 2.5-6.25 MG] 1 tab PO DAILY Aspirin EC [Ecotrin Low Dose] 81 mg PO DAILY Discharge Medication List RX: Acetaminophen-Codeine 300-30mg [Tylenol w/codeine #3] 1 tab PO Q8H PRN 02/02/20 [History] RX: EPINEPHrine (Auto Inject) [Epipen] 0.3 mg IM ONCE PRN 02/02/20 [History] Clopidogrel Bisulfate [Plavix] 75 mg PO DAILY #90 tab 05/03/20 [Rx] Aspirin EC [Ecotrin Low Dose] 81 mg PO DAILY 11/08/20 [History] Bisoprolol-Hctz 2.5-6.25 mg [Ziac 2.5-6.25 MG] 1 tab PO DAILY 11/08/20 [History] Follow up Appointment(s)/Referral(s): Aguilar Thurston Jr, [Primary Care Provider] - 1-2 days Activity/Diet/Wound Care/Special Instructions: We will schedule Cardiolite stress test as outpatient
--- NOTE | 2020-11-09 12:16 | P.CRDCN ---
History of Present Illness History of present illness: HISTORY OF PRESENTING ILLNESS Patient is a pleasant 75-year-old male with history of tobacco abuse, hypertension, hyperlipidemia, prior fall with concussion and memory impairment, coronary artery disease with previous PCI in 2012 and more recently in Apr 2020. Patient initially was having chest pain with exertion in April and therefore had a heart catheterization with patent stents in the RCA, mild disease in the RCA, a obstructive LAD lesion and a mild to moderate mid LAD lesion and no significant disease in the circumflex. He had successful PCI and had been doing well since that time. Patient states that unfortunately over the last 2-3 weeks she has been having issues mainly when he stands up feeling lightheaded and off balance. He states that happens, mainly with standing he will feel his heart racing and we'll not feel well. He'll feel some chest pain however admits this does not feel similar to his angina and also feels his heart racing with standing. This only lasts briefly and then if he looks straight ahead he will be okay after 3-5 seconds and then is able to walk without any difficulty. Unfortunately has an episode where he stood up and then became lightheaded and apparently had a syncopal episode. His blood pressures been fairly low in the past and has not been able to tolerate much antianginals. He admits he was placed on Ziac approximately 4 weeks ago and has been urinating more secondary to the diuretic effect. He previously been on metoprolol 12.5 mg daily. He had echocardiogram 11/08/2020 which showed normal ejection fraction 55-60% without significant valvular disease. EKG shows normal sinus rhythm, no significant ST or T-wave abnormalities. Blood work shows white blood cell count 11.6, hemoglobin 16.3, sodium 1:30, BUN 12, creatinine 0.6, troponin normal 3, prone BP 417. REVIEW OF SYSTEMS At the time of my exam: CONSTITUTIONAL: Denies fever or chills. CARDIOVASCULAR: +chest pain, no shortness of breath, orthopnea, PND or palpitations. RESPIRATORY: Denies cough. GASTROINTESTINAL: Denies abdominal pain, diarrhea, constipation, nausea or vomiting. MUSCULOSKELETAL: Denies myalgias. NEUROLOGIC: Denies numbness, tingling or weakness. ENDOCRINE: Denies fatigue, weight change, polydipsia or polyurina. GENITOURINARY: Denies burning, hematuria or urgency with micturation. HEMATOLOGIC: Denies history of anemia or bleeding. PHYSICAL EXAMINATION Vital signs reviewed. CONSTITUTIONAL: No apparent distress. HEENT: Head is normocephalic. Pupils are equal, round. Sclerae anicteric. Mucous membranes of the mouth are moist. No JVD. No carotid bruit. CHEST EXAMINATION: Lungs are clear to auscultation. No chest wall tenderness is noted on palpation or with deep breathing. HEART EXAMINATION: Regular rate and rhythm. S1, S2 heard. No murmurs, gallops or rub. ABDOMEN: Soft, nontender. Positive bowel sounds. EXTREMITIES: 2+ peripheral pulses, no lower extremity edema and no calf tenderness. NEUROLOGIC EXAMINATION: Patient is awake, alert and oriented x3. ASSESSMENT 1. atypical chest pain, troponin is normal 3. Appears mainly with standing up and not associated with exertion. May be more palpitations that he feels with hypotensive episodes with standing. 2. Coronary artery disease status post PCI April 2020 3. Syncope, appears mainly orthostatic in nature 4. Hyperlipidemia 5. History of fall and postconcussive syndrome 6. Tobacco abuse 7. Hyponatremia PLAN Patient has been very sensitive to medications in the past and he was recently changed to Ziac approximately 3-4 weeks ago. Suspect some of his symptoms mainly are occurring with standing up, orthostatic related to decrease interv ascular volume from the diuretic. Ideally beta britney however may consider discontinuing all antihypertensives if he is not tolerating. 2-D echo with normal left ventricular ejection fraction, chest pain is atypical and troponins normal 3. Patient currently feeling better and appears stable for discharge home with outpatient follow-up. Past Medical History Past Medical History: Coronary Artery Disease (CAD), Chest Pain / Angina, Hypertension, Rheumatoid Arthritis (RA) Additional Past Medical History / Comment(s): HX OF DIVERTICULTIS. skin CA. History of Any Multi-Drug Resistant Organisms: None Reported Past Surgical History: Bowel Resection, Cholecystectomy, Heart Catheterization With Stent Additional Past Surgical History / Comment(s): RETINOL DETACHMENT REPAIR (6 ON LEFT, 1 ON RIGHT). colon reconstrucion. heart cath with stents. testical r emoved. Past Anesthesia/Blood Transfusion Reactions: No Reported Reaction Date of Last Stent Placement:: UNKNOWN DATE 2009 Past Psychological History: No Psychological Hx Reported Smoking Status: Current every day smoker Past Alcohol Use History: Heavy Additional Past Alcohol Use History / Comment(s): SMOKES ABOUT 2-3 CIG PER DAY, SINCE WAS AGE 23 YRS. GLASS 0F WINE Past Drug Use History: None Reported - Past Family History Daughter(s) Family Medical History: Cancer Additional Family Medical History / Comment(s): breast cancer Medications and Allergies Home Medications Medication Instructions Recorded Confirmed Type Acetaminophen-Codeine 300-30mg 1 tab PO Q8H PRN 02/02/20 11/08/20 History [Tylenol w/codeine #3] EPINEPHrine (Auto Inject) [Epipen] 0.3 mg IM ONCE PRN 02/02/20 11/08/20 History Clopidogrel Bisulfate [Plavix] 75 mg PO DAILY #90 tab 05/03/20 11/08/20 Rx Aspirin EC [Ecotrin Low Dose] 81 mg PO DAILY 11/08/20 11/08/20 History Bisoprolol-Hctz 2.5-6.25 mg [Ziac 1 tab PO DAILY 11/08/20 11/08/20 History 2.5-6.25 MG] Allergies Allergy/AdvReac Type Severity Reaction Status Date / Time venom-honey bee Allergy Anaphylaxis Verified 11/08/20 10:18 [bee venom (honey bee)] Physical Exam Vitals: Vital Signs Temp Pulse Resp BP Pulse Ox 11/09/20 10:00 99 11/09/20 08:00 18 11/09/20 07:00 98.2 F 99 18 132/75 99 11/09/20 01:33 98.3 F 71 18 110/74 94 L 11/08/20 18:59 98.1 F 81 20 123/78 97 11/08/20 15:19 96 11/08/20 14:33 97.8 F 85 18 108/72 96 11/08/20 13:41 89 18 11/08/20 12:55 89 18 11/08/20 12:54 97.9 F 89 18 105/74 97 Intake and Output 11/08/20 11/09/20 11/09/20 22:59 06:59 14:59 Intake Total 60.669 64.348 Output Total 250 Balance 60.669 -185.652 Intake: Intake, IV Titration 60.669 64.348 Amount Heparin Sod,Pork in 0.45% 60.669 64.348 NaCl 25,000 unit In 0.45 % NaCl 1 250ml.bag @ 12 UNITS/KG/HR 6.804 mls/hr IV .Q24H [facility] Rx#: [id number] Output: Urine 250 Results 11/09/20 08:57 11/08/20 07:08 Cardiac Enzymes 11/08/20 Range/Units 12:45 Troponin I <0.012 (0.000-0.034) ng/mL Coagulation 11/08/20 11/09/20 11/09/20 Range/Units 17:35 01:15 08:57 APTT 34.9 H 83.5 H 53.0 H (22.0-30.0) sec CBC 11/09/20 Range/Units 08:57 WBC 8.2 (3.8-10.6) k/uL RBC 4.31 (4.30-5.90) m/uL Hgb 15.3 (13.0-17.5) gm/dL Hct 45.4 (39.0-53.0) % Plt Count 213 (150-450) k/uL Current Medications Generic Name Dose Route Start Last Admin Trade Name Freq PRN Reason Stop Dose Admin Acetaminophen 650 mg 11/08/20 17:05 11/08/20 18:18 Acetaminophen Tab 325 Mg Tab PO 650 mg Q4HR PRN Administration Fever and/ or Pain Acetaminophen/Butalbital/Caffeine 2 each 11/08/20 19:28 11/09/20 08:53 Butalb/Apap/Caff 50-325-40mg Tab PO 2 each Q8HR PRN Administration Headache Acetaminophen/Codeine Phosphate 1 each 11/09/20 09:58 Acetaminophen-Codeine 300-30mg Tab PO Q8H PRN Pain Aspirin 325 mg 11/09/20 09:00 11/09/20 08:53 Aspirin 325 Mg Tab PO 325 mg DAILY [facility] Administration Aspirin 81 mg 11/10/20 09:00 Aspirin 81 Mg PO DAILY [facility] Bisoprolol Fumarate 2.5 mg 11/08/20 17:15 11/09/20 08:53 Bisoprolol 5 Mg Tab PO 2.5 mg DAILY [facility] Administration Bisoprolol Fumarate 1 each 11/10/20 09:00 Bisoprolol-Hctz 2.5-6.25 Mg 1 Each Tab PO DAILY [facility] Clopidogrel Bisulfate 75 mg 11/08/20 17:15 11/09/20 08:54 Clopidogrel 75 Mg Tab PO 75 mg DAILY [facility] Administration Heparin Sodium (Porcine) 0 unit 11/08/20 18:40 11/08/20 19:08 Heparin Sodium 1,000 Un/Ml (10ml Vl) IV 2,849 unit PER PROTOCOL PRN Administration Low PTT Protocol Heparin Sodium/Sodium Chloride 250 mls @ 6.804 mls/hr 11/08/20 10:00 11/09/20 10:09 25,000 unit/ Sodium Chloride IV Not Given .Q24H [facility]FF[facility] Protocol 12 UNITS/KG/HR Miscellaneous Information 1 each 11/08/20 17:50 Magnesium Replacement Protocol 1 Each Misc MISCELLANE DAILY PRN Per Protocol Protocol Nicotine 1 patch 11/08/20 17:45 11/09/20 08:54 Nicotine 14mg/24hr Patch TRANSDERM Not Given DAILY [facility] Nitroglycerin 0.4 mg 11/08/20 09:51 Nitroglycerin Sl Tabs 0.4 Mg Tab SUBLINGUAL Q5M PRN Chest Pain Pantoprazole Sodium 40 mg 11/09/20 07:30 11/09/20 08:53 Pantoprazole 40 Mg Tablet PO 40 mg [id number] TIFFANIE Administration Intake and Output 11/08/20 11/09/20 11/09/20 22:59 06:59 14:59 Intake Total 60.669 64.348 Output Total 250 Balance 60.669 -185.652 Intake: Intake, IV Titration 60.669 64.348 Amount Heparin Sod,Pork in 0.45% 60.669 64.348 NaCl 25,000 unit In 0.45 % NaCl 1 250ml.bag @ 12 UNITS/KG/HR 6.804 mls/hr IV .Q24H [facility] Rx#: [id number] Output: Urine 250 11/09/20 08:57 11/08/20 07:08
[2020-11-09 13:00] LABS: African American GFR (CKD) 108.5 (60.0-200.0); Anion Gap 6.6 mmol/L (4.00-12.00); BUN/Creat Ratio 15.71 Ratio (12.00-20.00); Calcium 7.9 mg/dL (8.7-10.3); Carbon Dioxide 21.4 mmol/L (21.6-31.8); Chol/HDL Ratio 2.63; LDL Cholesterol,Calculated 82.8 mg/dL (0.0-131.0); Magnesium 1.8 mg/dL (1.5-2.4); Non-African American GFR(CKD) 93.6 (60.0-200.0); Potassium 4.3 mmol/L (3.5-5.5); VLDL Calculation 15.2 mg/dL (5.00-40.00)
[2020-11-10] MEDS ORDERED: ASPIRIN 81 MG PO SCH (09:00)
[2020-11-10] MEDS ORDERED: BISOPROLOL-HCTZ 2.5-6.25 MG 1 EACH TAB PO SCH (09:00)
== END 2020-11-09 12:45 | disposition home or self-care (01) ==
LOC: EC 06:47 → 6NMEDSUR 09:34
PROVIDERS: ADMIT Family Medicine; ATTEND Family Medicine
DX: R07.89 Other chest pain (principal); E87.1 Hypo-osmolality and hyponatremia; I95.9 Hypotension, unspecified; F07.81 Postconcussional syndrome; E44.0 Moderate protein-calorie malnutrition; E86.0 Dehydration; R00.2 Palpitations; R00.0 Tachycardia, unspecified; T50.2X5A Adverse effect of carbonic-anhydrase inhibitors, benzothiadiazides and other diuretics, initial encounter; R55 Syncope and collapse; I10 Essential (primary) hypertension; I25.10 Atherosclerotic heart disease of native coronary artery without angina pectoris; R63.8 Other symptoms and signs concerning food and fluid intake; M06.9 Rheumatoid arthritis, unspecified; M43.12 Spondylolisthesis, cervical region; E78.5 Hyperlipidemia, unspecified; J44.9 Chronic obstructive pulmonary disease, unspecified; R41.3 Other amnesia; F10.10 Alcohol abuse, uncomplicated; F17.210 Nicotine dependence, cigarettes, uncomplicated; Z79.82 Long term (current) use of aspirin; Z79.02 Long term (current) use of antithrombotics/antiplatelets; Z79.899 Other long term (current) drug therapy; Z91.030 Bee allergy status; Z87.19 Personal history of other diseases of the digestive system; Z87.820 Personal history of traumatic brain injury; Z91.81 History of falling; Z90.49 Acquired absence of other specified parts of digestive tract; Z95.5 Presence of coronary angioplasty implant and graft; Z98.890 Other specified postprocedural states; Z80.3 Family history of malignant neoplasm of breast
CPT/HCPCS: 96376 ×2; 96366 ×3; 96365; 96375; 99285; 36415; 94640; 93005; 83880; 80061; 80053; 80048; 83735 ×2; 84484; 85025 ×2; 85610; 85730 ×2; 71046; 72125; 70450; G0378 ×2; C8929; J2270; J2405; J1644 ×2; Q9950; 93306

== ENCOUNTER → 2021-07-09 | Outpatient (CLI) | payer MEDICARE, BC ==
--- NOTE | 2021-07-09 16:28 | FL ---
EXAMINATION TYPE: FL barium swallow DATE OF EXAM: 07/09/2021 COMPARISON: None HISTORY: Dysphagia vomiting TECHNIQUE: A single contrast esophagram study is performed. FINDINGS: Esophagus dilates to normal caliber and has normal contour to the gastroesophageal junction. Gastroes ophageal junction opens to normal caliber. Few tertiary contractions were evident during the examinat ion. No intraluminal defect is evident. No focal stenosis is evident. Limited imaging is performed over the stomach during the process of this exam. Subdental note is made of prominent duodenal folds, clinical consideration for acute duodenitis is recommended. Fluoroscopy time: 52 seconds. Images: 18 IMPRESSIONS: 1. Minimal presbyesophagus. 2. No esophageal stenosis. 3. Incidental note is made of findings suggestive for acute duodenitis. Clinical correlation recommen ded.
== END | disposition home or self-care (01) ==
LOC: RADUSWWP 10:11
PROVIDERS: ATTEND Surgery
DX: K22.89 Other specified disease of esophagus (principal)
CPT/HCPCS: 74220

== ENCOUNTER 2021-07-10 09:33 | Day surgery (SDC) | payer MEDICARE, BC ==
[2021-07-09 08:31] VITALS: BMI 19.4
[~2021-07-10 09:33] MED LIST changes: -ALPRAZolam 0.25 MG TAB PO PRN; -ALPRAZolam 0.5 MG TAB PO PRN; -ASPIRIN 325 MG TAB PO STA; -ATORVASTATIN 80 MG TAB PO STA; +LACTATED RINGERS 1,000 ML IV SCH; +LIDOCAINE 1% (10MG/ML) FOR IV START INTRADERMA PRN; -NITROGLYCERIN SL TABS 0.4 MG TAB SUBLINGUAL PRN; -SODIUM CHLORIDE 0.9% 1,000 ML in EMPTY BAG 1 BAG IV ONE
[2021-07-10 10:06] VITALS: TEMP 97.1
[2021-07-10] MEDS ORDERED: PROPOFOL 10 MG/ML 20 ML VIAL IV ONE (10:25)
[2021-07-10] MEDS ORDERED: LIDOCAINE 1% INJ 10MG/ML (20 ML MDV) ONE (10:25)
--- NOTE | 2021-07-10 10:28 | P.GSHP ---
History of Present Illness H&P Date: 07/10/21 Chief Complaint: Dysphagia This a 75-year-old male who said complaints of dysphagia. Patient is today for EGD. His recent esophagram shows evidence of presbyesophagus and possible duodenitis Past Medical History Past Medical History: Coronary Artery Disease (CAD), Cancer, Chest Pain / Angina, Hypertension, Rheumatoid Arthritis (RA) Additional Past Medical History / Comment(s): SKIN CANCER. DIVERTICULITIS History of Any Multi-Drug Resistant Organisms: None Reported Past Surgical History: Bowel Resection, Cholecystectomy, Heart Catheterization With Stent Additional Past Surgical History / Comment(s): RETINOL DETACHMENT REPAIR (6 ON LEFT, 1 ON RIGHT). TESTICLE REMOVED Past Anesthesia/Blood Transfusion Reactions: No Reported Reaction, Motion Sickness Date of Last Stent Placement:: UNKNOWN DATE 2009 Past Psychological History: No Psychological Hx Reported Smoking Status: Current some day smoker Past Alcohol Use History: Occasional Past Drug Use History: None Reported - Past Family History Daughter(s) Family Medical History: Cancer Additional Family Medical History / Comment(s): breast cancer Medications and Allergies Home Medications Medication Instructions Recorded Confirmed Type Acetaminophen-Codeine 300-30mg 1 tab PO Q8H PRN 02/02/20 07/09/21 History [Tylenol w/codeine #3] Allergies Allergy/AdvReac Type Severity Reaction Status Date / Time venom-honey bee Allergy Anaphylaxis Verified 07/10/21 10:03 [bee venom (honey bee)] Surgical - Exam Vital Signs Temp Pulse Resp BP Pulse Ox 97.1 F L 84 20 106/77 98 07/10/21 10:05 07/10/21 10:05 07/10/21 10:05 07/10/21 10:05 07/10/21 10:05 - General well developed, well nourished, no distress - Eyes PERRL - ENT normal pinna - Neck no masses - Respiratory normal expansion - Cardiovascular Rhythm: regular - Abdomen Abdomen: soft, non tender Assessment and Plan Assessment: Dysphagia. We'll perform EGD.
--- NOTE | 2021-07-10 10:36 | P.OP ---
Date of Procedure: 07/10/21 Preoperative Diagnosis: Dysphagia Postoperative Diagnosis: Duodenitis Antral gastritis Hiatal hernia Mild esophagitis Procedure(s) Performed: EGD Anesthesia: MAC Surgeon: Ralf Rodriguez Pathology: other (Antrum, esophagus, duodenum) Condition: stable Disposition: PACU Description of Procedure: The patient's placed on the endoscopy table lateral position. He received IV sedation. The gastroscope placed oropharynx passed in the esophagus and stomach. Scope was then placed through the pylorus. The first and second portion of the duodenum appeared inflamed. A biopsies performed. The scope was brought back the antrum and this appeared moderately inflamed. A biopsies performed. Scope was then retroflexed and there was a moderate size hiatal hernia. The GE junction was at 40 cm. The distal esophagus appeared mildly inflamed. Biopsies performed. The proximal esophagus appeared normal. Scope withdrawn for patient.
[2021-07-10] MEDS ORDERED: ONDANSETRON 4 MG/2 ML VIAL ONE (10:57)
[2021-07-10] MEDS ORDERED: Acetaminophen-Codeine 300-30mg TAB ONE (10:58)
[2021-07-10 11:52] VITALS: BP 136/87; PULSE 82; RESP 16
== END 2021-07-10 12:09 | disposition home or self-care (01) ==
LOC: ORWHC2ENDO 09:33
PROVIDERS: ATTEND Surgery
DX: K29.80 Duodenitis without bleeding (principal); K29.70 Gastritis, unspecified, without bleeding; K20.90 Esophagitis, unspecified without bleeding; K31.9 Disease of stomach and duodenum, unspecified; K44.9 Diaphragmatic hernia without obstruction or gangrene; R13.10 Dysphagia, unspecified; I25.119 Atherosclerotic heart disease of native coronary artery with unspecified angina pectoris; I10 Essential (primary) hypertension; M06.9 Rheumatoid arthritis, unspecified; F17.200 Nicotine dependence, unspecified, uncomplicated; Z90.49 Acquired absence of other specified parts of digestive tract; Z95.5 Presence of coronary angioplasty implant and graft; Z85.828 Personal history of other malignant neoplasm of skin; Z98.890 Other specified postprocedural states; Z90.79 Acquired absence of other genital organ(s); Z91.030 Bee allergy status; Z97.2 Presence of dental prosthetic device (complete) (partial); Z80.3 Family history of malignant neoplasm of breast
CPT/HCPCS: 88305; 43239; J2405; J2001; J2704

== ENCOUNTER 2021-07-20 11:27 | Emergency (ER) | payer MEDICARE, BC ==
[2021-07-20 11:43] VITALS: BP 110/97; PULSE 98; RESP 16; TEMP 97.8
[2021-07-20] MEDS ORDERED: MORPHINE SULFATE 4 MG/ML SYRINGE IV STA (12:53)
[2021-07-20] MEDS ORDERED: SODIUM CHLORIDE 0.9% 1,000 ML IV ONE (12:53)
[2021-07-20 13:31] LABS: African American GFR (CKD) >90 (>60 ml/min/1.73 sqM); Alcohol <10 mg/dL; Anion Gap 3 mmol/L; Blood Urea Nitrogen 15 mg/dL (9-20); Calcium 7.8 mg/dL (8.4-10.2); Carbon Dioxide 28 mmol/L (22-30); Chloride 105 mmol/L (98-107); Glucose 91 mg/dL (74-99); Non-African American GFR(CKD) 89 (>60 ml/min/1.73 sqM); Potassium 3.2 mmol/L (3.5-5.1); Sodium 136 mmol/L (137-145)
[2021-07-20 13:32] LABS: Basophils # (A) 0.1 k/uL (0-0.2); Basophils % (A) 1 %; Eosinophils # (A) 0.1 k/uL (0-0.7); Eosinophils % (A) 1 %; HCT 47.7 % (39.0-53.0); Lymphocytes # (A) 1.3 k/uL (1.0-4.8); Lymphocytes % (A) 12 %; MCH 33.4 pg (25.0-35.0); MCHC 33.6 g/dL (31.0-37.0); MCV 99.4 fL (80.0-100.0); Mean Platelet Volume 8.3; Monocytes # (A) 0.9 k/uL (0-1.0); Monocytes % (A) 7 %; Neutrophils # (A) 9.1 k/uL (1.3-7.7); Neutrophils % (A) 79 %; Partial Thromboplastin Time 25.3 sec (22.0-30.0); Platelet Count 206 k/uL (150-450); Prothrombin Time 10.9 sec (9.0-12.0); RDW 14.1 % (11.5-15.5); WBC 11.6 k/uL (3.8-10.6)
--- NOTE | 2021-07-20 13:50 | ED ---
General Adult HPI - General Chief complaint: Fall Stated complaint: Fall Time Seen by Provider: 07/20/21 12:50 Source: patient, EMS, RN notes reviewed, old records reviewed Mode of arrival: EMS Limitations: physical limitation - History of Present Illness Initial comments: Patient is a 75-year-old male with past medical history remarkable for previous alcohol abuse, concussions who presents emergency Department complaining of mechanical falls at home. He states he lost his balance as he walked into the kitchen as he tripped over a chair and landed face first onto his table. Please he may have had LOC. Is currently complaining of left-sided forehead and facial pain, bilateral shoulder pain, left knee pain that is chronic. Thus complaining of cervical and thoracic spine pain. Denies any chest pain, abdominal pain. Denies any nausea or vomiting. Denies any shortness of breath. Is not on blood thinners. He denies any fevers. Has no other acute complaints at this time. Presents for evaluation. He is very concerned regarding his concussions. He previously has followed up with a neurologist and has contact info for them, but has not seen him in over a year. - Related Data Home Medications Medication Instructions Recorded Confirmed Omeprazole 20 mg PO DAILY 07/20/21 07/20/21 Allergies Allergy/AdvReac Type Severity Reaction Status Date / Time venom-honey bee Allergy Anaphylaxis Verified 07/20/21 15:16 [bee venom (honey bee)] Review of Systems ROS Statement: Those systems with pertinent positive or pertinent negative responses have been documented in the HPI. Review of Systems: CONST: Denies fever EYES: Denies blurry vision ENT: Denies nasal congestion C/V: Denies Chest pain RESP: Denies shortness of breath GI: Denies abdominal pain : Denies dysuria SKIN: Denies rash. MSK: Joint pain. Endorses face pain. NEURO: Denies headache ROS Other: All systems not noted in ROS Statement are negative. Past Medical History Past Medical History: Coronary Artery Disease (CAD), Cancer, Chest Pain / Angina, Hypertension, Rheumatoid Arthritis (RA) Additional Past Medical History / Comment(s): SKIN CANCER. DIVERTICULITIS History of Any Multi-Drug Resistant Organisms: None Reported Past Surgical History: Bowel Resection, Cholecystectomy, Heart Catheterization With Stent Additional Past Surgical History / Comment(s): RETINOL DETACHMENT REPAIR (6 ON LEFT, 1 ON RIGHT). TESTICLE REMOVED Past Anesthesia/Blood Transfusion Reactions: No Reported Reaction, Motion Sickness Date of Last Stent Placement:: UNKNOWN DATE APPROX 2009 Past Psychological History: No Psychological Hx Reported Smoking Status: Current some day smoker Past Alcohol Use History: Daily Past Drug Use History: None Reported - Past Family History Daughter(s) Family Medical History: Cancer Additional Family Medical History / Comment(s): breast cancer General Exam - General Exam Comments Initial Comments: General: Appears in mild distress secondary to pain. HEAD: Normal with no signs of head trauma. Negative Olivas sign, negative raccoon eyes, negative hemotympanum. No step-offs or deformities of the skull. Bruise located over the left eye over the forehead. EYES: PERRLA, EOMI, conjunctiva normal, no discharge. Pupils are 3 mm and equal bilaterally. ENT: Hearing grossly intact, normal oropharynx. RESPIRATORY: Clear breath sounds bilaterally. No wheezes, rales, or rhonchi. C/V: Regular rate and rhythm. S1 and S2 auscultated, no edema, peripheral pulses 2+ and intact throughout ABD: Abd is soft, nontender, nondistended EXT: Normal range of motion, no obvious deformity. Patient is nonfocal tenderness to palpation over bilateral shoulders as well as left knee. Acute on chronic midline cervical, thoracic, upper lumbar spine tenderness to palpation. SKIN: No rashes or lesions observed on exposed skin. Developing bruise over the left eye on the forehead. NEURO: Alert and oriented x 4. Cranial nerves II-XII intact. No focal sensory or strength deficits. GCS is 15. NIH is 0. Limitations: physical limitation Course Vital Signs 07/20/21 11:39 Temperature 97.8 F Pulse Rate 98 Respiratory 16 Rate Blood Pressure 110/97 Medical Decision Making - Medical Decision Making Based on the patient's presentation and physical exam, do believe he experienced a mechanical fall with an episode of loss of consciousness. He is joint pain without any obvious deformities. We will obtain x-rays, CT imaging, as well as trauma labs. He'll be given IV fluids as well as IV analgesia. He was in agreement this plan. EKG showed no signs of acute ischemia. Laboratory studies are remarkable for mild leukocytosis of 11.6 which is likely reactive. Potassium slightly decr eased at 3.2 which was replenished. Alcohol level is negative. Remainder of the labs are unremarkable. Pelvis x-ray shows no acute fracture or subluxation. Knee x-ray reveals no acute fracture or subluxation. Shoulder x-rays bilaterally revealed no acute findings. Chest x-ray shows no acute findings. No acute cardiopulmonary process. Head and cervical spine CT revealed no acute intracranial process. CT imaging shows no acute fracture but multilevel disc disease. Thoracic spine CT revealed no acute process. On reevaluation, patient's pain is improved. He is in the toilet. Has no acute symptoms at this time. I believe it is safer to be discharged home. He was in agreement this plan. Strict return precautions were discussed. We discussed concussions at length and he agreed to follow up with his neurologist. Vital signs remained within normal limits and stable throughout his stay. I instructed the patient to follow up with their PCP in the next 3 days. I ex plained that the patient should return to the emergency department if they experience any worsening symptoms. Strict return precautions were discussed with the patient. The patient expressed understanding of these instructions. I answered all questions that the patient had. The patient was discharged home in good condition with their prescriptions and follow up information. - Lab Data Result diagrams: 07/20/21 13:08 07/20/21 13:08 Lab Results 07/20/21 07/20/21 07/20/21 Range/Units 13:08 13:08 13:08 WBC 11.6 H (3.8-10.6) k/uL RBC 4.80 (4.30-5.90) m/uL Hgb 16.0 (13.0-17.5) gm/dL Hct 47.7 (39.0-53.0) % MCV 99.4 (80.0-100.0) fL MCH 33.4 (25.0-35.0) pg MCHC 33.6 (31.0-37.0) g/dL RDW 14.1 (11.5-15.5) % Plt Count 206 (150-450) k/uL MPV 8.3 Neutrophils % 79 % Lymphocytes % 12 % Monocytes % 7 % Eosinophils % 1 % Basophils % 1 % Neutrophils # 9.1 H (1.3-7.7) k/uL Lymphocytes # 1.3 (1.0-4.8) k/uL Monocytes # 0.9 (0-1.0) k/uL Eosinophils # 0.1 (0-0.7) k/uL Basophils # 0.1 (0-0.2) k/uL PT 10.9 (9.0-12.0) sec INR 1.0 (<1.2) APTT 25.3 (22.0-30.0) sec Sodium 136 L (137-145) mmol/L Potassium 3.2 L (3.5-5.1) mmol/L Chloride 105 (98-107) mmol/L Carbon Dioxide 28 (22-30) mmol/L Anion Gap 3 mmol/L BUN 15 (9-20) mg/dL Creatinine 0.80 (0.66-1.25) mg/dL Est GFR (CKD-EPI)AfAm >90 (>60 ml/min/1.73 sqM) Est GFR (CKD-EPI)NonAf 89 (>60 ml/min/1.73 sqM) Glucose 91 (74-99) mg/dL Calcium 7.8 L (8.4-10.2) mg/dL Serum Alcohol <10 mg/dL - EKG Data -: EKG Interpreted by Me EKG Comments: 12-lead Electrocardiogram Interpretation Note EKG was reviewed and interpreted by myself. 12-lead ECG performed at 1155 is interpreted by me as revealing normal sinus rhythm at a rate of 95 beats per minute. Romulus is normal. LA interval is 157 ms, QRS duration is 91 ms, QTc is 420 ms.. There were no ST or T wave abnormalities to suggest myocardial ischemia or injury. R wave progression across the precordium was satisfactory. By my interpretation this EKG is non-diagnostic for acute ischemia. Disposition Clinical Impression: Fall, Musculoskeletal pain, Concussion Disposition: HOME SELF-CARE Condition: Good Instructions (If sedation given, give patient instructions): Concussion (ED), Fall Prevention for Older Adults (ED) Is patient prescribed a controlled substance at d/c from ED?: No Referrals: Aguilar Thurston Jr, DO [Primary Care Provider] - 1-2 days Time of Disposition: 15:40
[2021-07-20] MEDS ORDERED: POTASSIUM CHLORIDE ER 20 MEQ TAB.ER PO STA (14:03)
--- NOTE | 2021-07-20 14:15 | CT ---
EXAMINATION TYPE: CT facial bones wo con, CT brain cspine wo con CT DLP: Included in Brain DLP of 788.4 (accession [id number]), 1066.5 (accession [id number]) mGycm, Autom ated exposure control for dose reduction was used. DATE OF EXAM: 07/20/2021 1:54 PM COMPARISON: CT brain 11/08/2020. CLINICAL INDICATION:Male, 75 years old with history of blunt trauma, loc, Fall TECHNIQUE: Multiple unenhanced axial CT images were obtained of the facial bones soft tissue and bone windows. Coronal, axial and sagittal reformatted images were also provided in soft tissue and bone windows and submitted for interpretation. TECHNIQUE: CT scan of the head and cervical spine are performed without contrast. FINDINGS: Facial: There is no evidence of fracture, subluxation, dislocation, or significant soft tissue swelli ng. The orbital contents are unremarkable.The temporal-mandibular joints appear symmetric. The visual ized portion of the paranasal sinuses minimal mucosal thickening. Carotid bifurcation atherosclerosi s is present. Elongated styloid processes with pseudoarthrosis right greater than left. Brain: Extra-axial spaces: No abnormal extra-axial fluid collections. Ventricular system: Within normal limits Cerebral parenchyma: No acute intraparenchymal hemorrhage or mass effect. The lombardo-white junction is well differentiated. Cerebellum: Unremarkable. Mass effect: No evidence of midline shift. Intracranial vasculature: Atherosclerotic calcifications of the intracranial vessels. Soft tissues: No obvious abnormality. Calvarium/osseous structures: No depressed skull fracture. Paranasal sinuses and mastoid air cells: Mild scattered paranasal sinus disease. Visualized orbits: Orbital contents are intact. Cervical spine: Fracture: None. Osseous structures: Multilevel degenerative disc disease changes with endplate spurring and disc oste ophyte complex's. Vertebral alignment: Within normal limits. Spinal canal/Neural Foramina: No evidence of significant spinal canal narrowing. Facet joint uncovert ebral joint arthropathy scattered throughout the cervical spine with varying degrees of neural forami nal stenosis. Neck soft tissues: Prevertebral soft tissues are within normal limits. Other: The airway is patent. The lung apices are clear. IMPRESSION: 1. No acute intracranial process. 2. No evidence of facial bone fracture. 3. No evidence of cervical spine fracture. 4. Moderate multilevel degenerative disc disease.
--- NOTE | 2021-07-20 14:19 | CT ---
EXAMINATION TYPE: CT thoracic spine wo con CT DLP: 970.2 mGycm, Automated exposure control for dose reduction was used. DATE OF EXAM: 07/20/2021 1:55 PM COMPARISON: Chest radiograph 07/20/2021. CLINICAL INDICATION:Male, 75 years old with history of blunt trauma, loc;, Fall TECHNIQUE: Axial images of the thoracic spine were obtained without contrast. Coronal and sagittal re formats were performed. FINDINGS: The thoracic vertebral bodies have preserved heights and alignment. Intervertebral discs and osseous structures have normal appearance. Mild multilevel disc degeneration changes with endpla te spurring are seen throughout the spine. No evidence of extradural defects nor significant spinal c anal narrowing at any thoracic vertebral body level. Partially visualized remote right lacunar injury . A few areas of scattered vacuum disc phenomenon are present. Posterior dependent streaky atelectasis seen within the lung bases. Scattered atherosclerosis of the arterial vasculature. IMPRESSION: 1. No spinal canal or neural foraminal stenosis is identified. 2. No evidence of acute fracture of the thoracic spine.
--- NOTE | 2021-07-20 14:32 | XR ---
EXAMINATION TYPE: XR chest 2V DATE OF EXAM: 07/20/2021 COMPARISON: 11/08/2020 HISTORY: Trauma. Pain TECHNIQUE: Single view FINDINGS: Heart is normal. Lungs are clear of consolidation. There are no hilar masses. Costophrenic angles are clear. There are chest leads. IMPRESSION: No active cardiopulmonary disease. Normal heart. No change
--- NOTE | 2021-07-20 14:38 | XR ---
EXAMINATION TYPE: XR shoulder complete BILAT DATE OF EXAM: 07/20/2021 COMPARISON: NONE HISTORY: Fall. Pain TECHNIQUE: 3 views each shoulder FINDINGS: There is no evidence of fracture nor dislocation. There is bilateral narrowing of the subac romial joint spaces. No significant pathologic calcification. There is mild bilateral spurring of the AC joints. IMPRESSION: No acute abnormality of the left and right shoulder. No fracture.
--- NOTE | 2021-07-20 14:39 | XR ---
EXAMINATION TYPE: XR knee complete LT DATE OF EXAM: 07/20/2021 COMPARISON: NONE HISTORY: Pain TECHNIQUE: 3 views FINDINGS: I see no fracture nor dislocation. Joint spaces are fairly normal. There is no evidence of joint effusion. IMPRESSION: Negative left knee exam. No fracture.
--- NOTE | 2021-07-20 14:40 | XR ---
EXAMINATION TYPE: XR pelvis AP view DATE OF EXAM: 07/20/2021 COMPARISON: NONE HISTORY: Fall. Pain TECHNIQUE: Single view FINDINGS: Pelvic ring is intact. Proximal femurs and hip joints are intact. Sacroiliac joints are int act. There is vascular calcification. IMPRESSION: No acute abnormality of the pelvis. No fracture.
[2021-07-20] MEDS ORDERED: KETOROLAC 15 MG/ML 1 ML VIAL IVP STA (15:51)
== END 2021-07-20 16:40 | disposition home or self-care (01) ==
LOC: EC 11:27
DX: S06.0X1A Concussion with loss of consciousness of 30 minutes or less, initial encounter (principal); R51.9 Headache, unspecified; R40.2412 Glasgow coma scale score 13-15, at arrival to emergency department; F17.200 Nicotine dependence, unspecified, uncomplicated; I10 Essential (primary) hypertension; Z91.030 Bee allergy status; W01.190A Fall on same level from slipping, tripping and stumbling with subsequent striking against furniture, initial encounter; Y92.009 Unspecified place in unspecified non-institutional (private) residence as the place of occurrence of the external cause
CPT/HCPCS: 36415; 93005; 80048; 85025; 85610; 85730; 73030; 72170; 73562; 71046; 72128; 72125; 70486; 70450; 99285; 96374; 96375; 96361; G0480; J2270; J1885; 80320

== ENCOUNTER 2021-08-07 08:16 | Inpatient (IN) | payer MEDICARE, BC ==
[2021-08-07] MEDS ORDERED: SODIUM CHLORIDE 0.9% 1,000 ML IV STA (08:44)
[2021-08-07] MEDS ORDERED: MORPHINE SULFATE 4 MG/ML SYRINGE IVP STA ×2 (08:47→12:03)
--- NOTE | 2021-08-07 08:57 | ED ---
General Adult HPI - General Chief complaint: Weakness Stated complaint: stroke symptoms Time Seen by Provider: 08/07/21 08:24 Source: patient, EMS, RN notes reviewed, old records reviewed Mode of arrival: EMS Limitations: no limitations - History of Present Illness Initial comments: Patient is a 75-year-old male who presents to the emergency department after multiple falls. Patient has a history of CAD, chest pain, hypertension. I evaluated the patient multiple weeks ago for similar symptoms. He has chronic right lower extremity weakness as well as history of chronic falls. States that his right knee has been more unstable lately. Causing him to fall. Also noticed over the last few weeks of his right hand has become more painful. He is having a difficult time making a fist on that side. Also endorses a somewhat chronic head pressure sensation, and he was diagnosed with a concussion by another provider. Presents today after his son found him at home and he was having weakness and unable to get up. Has been taking GoLYTELY for colonoscopy prep. Denies chest pain, abdominal pain. Denies any nausea, vomiting, shortness of breath. Denies any back pain except for chronic lumbar spine back pain. Denies any saddle anesthesias. Denies any dysuria or difficulty with urinating. Has no other acute complaints at this time. Has no known sick contacts. - Related Data Home Medications Medication Instructions Recorded Confirmed Omeprazole 20 mg PO QAM 07/20/21 08/07/21 Allergies Allergy/AdvReac Type Severity Reaction Status Date / Time venom-honey bee Allergy Anaphylaxis Verified 08/07/21 11:29 [bee venom (honey bee)] Review of Systems ROS Statement: Those systems with pertinent positive or pertinent negative responses have been documented in the HPI. Review of Systems: CONST: Denies fever EYES: Denies blurry vision ENT: Denies nasal congestion C/V: Denies Chest pain RESP: Denies shortness of breath GI: Denies abdominal pain : Denies dysuria SKIN: Denies rash. MSK: Endorses joint pain NEURO: Denies headache ROS Other: All systems not noted in ROS Statement are negative. Past Medical History Past Medical History: Coronary Artery Disease (CAD), Cancer, Chest Pain / Angina, Hypertension, Rheumatoid Arthritis (RA) Additional Past Medical History / Comment(s): SKIN CANCER. DIVERTICULITIS History of Any Multi-Drug Resistant Organisms: None Reported Past Surgical History: Cholecystectomy Additional Past Surgical History / Comment(s): RETINOL DETACHMENT REPAIR (6 ON LEFT, 1 ON RIGHT). TESTICLE REMOVED Past Anesthesia/Blood Transfusion Reactions: No Reported Reaction, Motion Sickn ess Date of Last Stent Placement:: UNKNOWN DATE APPROX 2009 Past Psychological History: No Psychological Hx Reported Smoking Status: Current some day smoker Past Alcohol Use History: Daily Past Drug Use History: None Reported - Past Family History Daughter(s) Family Medical History: Cancer General Exam - General Exam Comments Initial Comments: General: Appears in no acute distress. HEAD: Normal with no signs of head trauma. EYES: PERRLA, EOMI, conjunctiva normal, no discharge. Pupils are 3 mm equal bilaterally. ENT: Hearing grossly intact, normal oropharynx. RESPIRATORY: Clear breath sounds bilaterally. No wheezes, rales, or rhonchi. C/V: Regular rate and rhythm. S1 and S2 auscultated, no edema, peripheral pulses 2+ and intact throughout ABD: Abd is soft, nontender, nondistended EXT: Reduced range of motion of the right hip and knee which is chronic. Reduced range of motion of the right hand and right shoulder which is also chronic. States he broke his collarbone on the right has been having issues with that. Pelvis is stable. Midline lumbar spine mild tenderness to palpation which is chronic per patient. No cervical or thoracic spine tenderness to palpation. Reduced range of motion of the right shoulder secondary to pain. Reduced range of motion of the right hand secondary to pain. No facial bone te nderness to palpation. SKIN: Numerous abrasions and lacerations over the extremities of various ages, likely secondary to multiple falls. Bruising of the right hand. NEURO: Alert and oriented 4. Illness 2 through 12 are intact. Decreased movement of the right lower extremity and right upper extremity secondary to pain likely secondary to injuries. NIH is otherwise 0. GCS is 15. Cerebellar function appears to be intact as evident by normal finger to nose testing. Limitations: no limitations Course Vital Signs 08/07/21 08/07/21 08/07/21 08:20 11:38 13:41 Temperature 97.2 F L Pulse Rate 82 74 76 Respiratory 18 18 18 Rate Blood Pressure 137/87 131/81 133/78 O2 Sat by Pulse 98 99 99 Oximetry Medical Decision Making - Medical Decision Making Based on the patient's presentation and physical exam, I'm concerned for what appears to be multiple falls at home. He appears to be getting weaker. Patient does appear mildly dehydrated at this time we'll obtain a broad workup and cardiac labs as well as infectious. In addition we will obtain plain films of right upper extremity and right lower extremity. CT spine as well as brain will also be obtained. He'll be given a 1 L fluid bolus as well as IV analgesia. EKG shows no signs of acute ischemia.Patient's laboratory studies are remarkable for mild leukocytosis of 12.4. Troponin is negative. Urinalysis is unremarkable. The showed 2+ ketones which is likely secondary to dehydration. Chest x-ray revealed no acute cardiopulmonary process. CT imaging revealed chronic changes in the spine, as well as a subacute left parietal lobe infarct. No sign of acute intracranial hemorrhage. X-rays revealed a healing right clavicle fracture but no other acute fractures or subluxations or injuries. On reevaluation, patient remains stable. Vital signs remained within normal limits. I discussed with him and his family members the findings of the imaging as well as labs. He will be admitted for neurology evaluation. He will be given an aspirin. They were in agreement this plan. I spoke with neurology, Dr. Martínez was in agreement this plan and accepted the patient. I spoke with the admitting team under Dr. Thurston who accepted the patient. Patient was admitted in stable condition. - Lab Data Result diagrams: 08/07/21 11:00 08/07/21 11:00 Lab Results 08/07/21 08/07/21 08/07/21 Range/Units 08:59 11:00 11:00 WBC 12.4 H (3.8-10.6) k/uL RBC 4.36 (4.30-5.90) m/uL Hgb 14.6 (13.0-17.5) gm/dL Hct 45.1 (39.0-53.0) % MCV 103.3 H (80.0-100.0) fL MCH 33.5 (25.0-35.0) pg MCHC 32.4 (31.0-37.0) g/dL RDW 13.8 (11.5-15.5) % Plt Count 279 (150-450) k/uL MPV 8.4 Neutrophils % 73 % Lymphocytes % 17 % Monocytes % 7 % Eosinophils % 1 % Basophils % 0 % Neutrophils # 9.0 H (1.3-7.7) k/uL Lymphocytes # 2.1 (1.0-4.8) k/uL Monocytes # 0.9 (0-1.0) k/uL Eosinophils # 0.1 (0-0.7) k/uL Basophils # 0.0 (0-0.2) k/uL Macrocytosis Slight PT 10.6 (9.0-12.0) sec INR 1.0 (<1.2) APTT 25.2 (22.0-30.0) sec Sodium (137-145) mmol/L Potassium (3.5-5.1) mmol/L Chloride (98-107) mmol/L Carbon Dioxide (22-30) mmol/L Anion Gap mmol/L BUN (9-20) mg/dL Creatinine (0.66-1.25) mg/dL Est GFR (CKD-EPI)AfAm (>60 ml/min/1.73 sqM) Est GFR (CKD-EPI)NonAf (>60 ml/min/1.73 sqM) Glucose (74-99) mg/dL Plasma Lactic Acid Chano (0.7-2.0) mmol/L Calcium (8.4-10.2) mg/dL Total Bilirubin (0.2-1.3) mg/dL AST (17-59) U/L ALT (4-49) U/L Alkaline Phosphatase (38-126) U/L Troponin I (0.000-0.034) ng/mL Total Protein (6.3-8.2) g/dL Albumin (3.5-5.0) g/dL Urine Color Yellow Urine Appearance Clear (Clear) Urine pH 5.5 (5.0-8.0) Ur Specific Spade 1.025 (1.001-1.035) Urine Protein Trace H (Negative) Urine Glucose (UA) Negative (Negative) Urine Ketones 2+ H (Negative) Urine Blood Negative (Negative) Urine Nitrite Negative (Negative) Urine Bilirubin Negative (Negative) Urine Urobilinogen 2.0 (<2.0) mg/dL Ur Leukocyte Esterase Negative (Negative) 08/07/21 08/07/21 08/07/21 Range/Units 11:00 11:00 11:00 WBC (3.8-10.6) k/uL RBC (4.30-5.90) m/uL Hgb (13.0-17.5) gm/dL Hct (39.0-53.0) % MCV (80.0-100.0) fL MCH (25.0-35.0) pg MCHC (31.0-37.0) g/dL RDW (11.5-15.5) % Plt Count (150-450) k/uL MPV Neutrophils % % Lymphocytes % % Monocytes % % Eosinophils % % Basophils % % Neutrophils # (1.3-7.7) k/uL Lymphocytes # (1.0-4.8) k/uL Monocytes # (0-1.0) k/uL Eosinophils # (0-0.7) k/uL Basophils # (0-0.2) k/uL Macrocytosis PT (9.0-12.0) sec INR (<1.2) APTT (22.0-30.0) sec Sodium 138 (137-145) mmol/L Potassium 3.6 (3.5-5.1) mmol/L Chloride 107 (98-107) mmol/L Carbon Dioxide 26 (22-30) mmol/L Anion Gap 5 mmol/L BUN 16 (9-20) mg/dL Creatinine 0.80 (0.66-1.25) mg/dL Est GFR (CKD-EPI)AfAm >90 (>60 ml/min/1.73 sqM) Est GFR (CKD-EPI)NonAf 89 (>60 ml/min/1.73 sqM) Glucose 76 (74-99) mg/dL Plasma Lactic Acid Chano 0.9 (0.7-2.0) mmol/L Calcium 7.5 L (8.4-10.2) mg/dL Total Bilirubin 1.0 (0.2-1.3) mg/dL AST 25 (17-59) U/L ALT 19 (4-49) U/L Alkaline Phosphatase 115 (38-126) U/L Troponin I <0.012 (0.000-0.034) ng/mL Total Protein 5.7 L (6.3-8.2) g/dL Albumin 2.7 L (3.5-5.0) g/dL Urine Color Urine Appearance (Clear) Urine pH (5.0-8.0) Ur Specific Spade (1.001-1.035) Urine Protein (Negative) Urine Glucose (UA) (Negative) Urine Ketones (Negative) Urine Blood (Negative) Urine Nitrite (Negative) Urine Bilirubin (Negative) Urine Urobilinogen (<2.0) mg/dL Ur Leukocyte Esterase (Negative) - EKG Data -: EKG Interpreted by Me EKG Comments: 12-lead Electrocardiogram Interpretation Note EKG was reviewed and interpreted by myself. 12-lead ECG performed at 0841 is interpreted by me as revealing normal sinus rhythm at a rate of 86 beats per minute. [place] is normal. TN interval is 140 ms, QRS duration is 92 ms, QTc is 420 ms.. There were no ST or T wave abnormalities to suggest myocardial ischemia or injury. R wave progression across the precordium was satisfactory. By my interpretation this EKG is non-diagnostic for acute ischemia. Disposition Clinical Impression: CVA (cerebral vascular accident), Fall, Weakness, Dehydration Disposition: ADMITTED IP TO THIS [facility] Condition: Stable Time of Disposition: 12:10
--- NOTE | 2021-08-07 10:24 | CT ---
EXAMINATION TYPE: CT brain wo con DATE OF EXAM: 08/07/2021 COMPARISON: 07/20/2021 HISTORY: 75-year-old male Blunt trauma, fall, pain. TECHNIQUE: Examination was done in axial plane without intravenous contrast. Coronal and sagittal r econstructions performed. CT DLP: 1052.4 mGycm Automated exposure control for dose reduction was used. FINDINGS: There is new cortical and subcortical hypodensity along the superior left frontoparietal junction ext ending down into the subcortical white matter. Associated sulcal effacement here. No midline shift, h erniation, hydrocephalus. The finding is new from 07/20/2021. No acute intracranial hemorrhage seen. N o extra-axial fluid collection. Rightward nasal septal deviation. Mild mucosal thickening ethmoid air cells. Small amount of trapped fluid right mastoid air cells. No calvarial fracture. IMPRESSION: Findings suggesting evolving, now subacute infarct superior left frontoparietal junction greater than 6 hours in duration. Associated cortical and subcortical hypodensity and sulcal effacement but no mi dline shift or acute intracranial hemorrhage. Correlate for any corresponding neurologic deficits. Fi ndings are new from 07/20/2021. Findings called to Dr. Pitt in the ER at 10:20 AM.
--- NOTE | 2021-08-07 10:26 | CT ---
EXAMINATION TYPE: CT cervical spine wo con DATE OF EXAM: 08/07/2021 COMPARISON: CT dated 07/20/2021 HISTORY: Fall, neck pain CT DLP: 218.1 mGycm Automated exposure control for dose reduction was used. TECHNIQUE: CT scan of the cervical spine is obtained without contrast, axial images are obtained, sa gittal and coronal reformatted images are also reviewed. FINDINGS: Mild anterolisthesis of C7 over T1, likely degenerative and appreciated previously. No definite verte bral body collapse or acute displaced fracture. Unremarkable atlantoaxial and atlantooccipital articu lations. Degenerative changes of the cervical spine with multilevel opposing endplate osteophytosis, degenerat ed discs and uncovertebral osteoarthropathy, seen from C3-4 down to C6-7 levels. Multilevel facet fac et arthropathy is also noted. Left C2-3, bilateral C4-5, right C5-6 and left C6-7 neuroforaminal stenosis. Multilevel spinal canal stenosis is also noted most evident at C6-7 level. Scattered arterial atherosclerotic calcifications. No paraspinal lesion. Mild opacification of the ri ght inferior mastoid air cells. IMPRESSION: No evidence of acute traumatic bony injury of the cervical spine. Degenerative changes of cervical sp ine and other incidental findings as described above.
--- NOTE | 2021-08-07 10:37 | CT ---
EXAMINATION TYPE: CT lumbar spine wo con DATE OF EXAM: 08/07/2021 COMPARISON: 12/08/2018 HISTORY: 75-year-old male blunt trauma, Fall, back pain TECHNIQUE: Contiguous axial scanning of the lumbar spine without IV contrast. Coronal and sagittal re constructions performed. CT DLP: 718.9 mGycm Automated exposure control for dose reduction was used. FINDINGS: Cysts within the upper pole of right kidney measuring 4.3 and 2.9 cm versus septated 3.8 cm back in 2 019. Additional cortical cysts are present laterally. Cortical defect here suggests sequela of prior vascular or infectious insult. Moderate atherosclerotic calcifications abdominal aorta without aneurysm. Sigmoid diverticulosis and cholecystectomy clips noted. Vertebral body heights are preserved. Alignment is maintained. Moderate degenerative disc disease L2-L3 and more moderate to advanced at L5-S1 with disc space narro wing, some vacuum phenomenon, and disc bulging. This likely contributes to mild narrowing of the spin al canal at L2-L3. Mild degenerative disc disease elsewhere throughout the lumbar spine. Facet arthropathy mid to lower lumbar spine, greater towards the right. On the right, changes result in mild neural foraminal stenosis at L4-L5. On the left, changes result in [id number] foraminal stenosis at L4-L5 and mild at additional le vels. Visualized SI joints are intact. IMPRESSION: 1. NO VERTEBRAL COMPRESSION COLLAPSE OR MALALIGNMENT. 2. [id number] MULTILEVEL DEGENERATIVE DISC DISEASE. POSTERIOR DISC BULGE AT L2-L3 LIKELY CONTRI BUTES TO MILD NARROWING OF THE SPINAL CANAL. 3. FACET ARTHROPATHY MID TO LOWER LUMBAR SPINE, GREATER ON THE RIGHT SIDE. CHANGES RESULT IN MILD TO MODERATE NEUROFORAMINAL NARROWING AT L4-L5. 4. CYSTS WITHIN THE RIGHT KIDNEY MEASURING UP TO 4.3 CM SHOW INTERVAL INCREASE IN SIZE MEASURING 3.8 CM BACK IN 2019. SIGMOID DIVERTICULOSIS.
--- NOTE | 2021-08-07 10:49 | CT ---
EXAMINATION TYPE: CT thoracic spine wo con DATE OF EXAM: 08/07/2021 COMPARISON: 07/20/2021 HISTORY: 75-year-old male Fall, back pain TECHNIQUE: Contiguous axial scanning of the thoracic spine without IV contrast. Coronal and sagittal reconstructions performed. CT DLP: 1335 mGycm Automated exposure control for dose reduction was used. FINDINGS: There is degenerative grade 1 retrolisthesis at this C6-7 and grade 1 anterolisthesis at C7-T1. Moder ate to advanced disc/endplate degenerative change visualized lower cervical spine, similar to the rec ent. Accentuated mid thoracic kyphosis. Mild degenerative disc disease midthoracic spine By CT, no evident canal compromise in the thoracic spine. No acute fracture is seen No acute fracture seen of the thoracic spine. Extensive three-vessel calcifications coronary arteries. There is some mucoid debris in the proximal aspect of the left mainstem bronchus noted. Some hazy dependent atelectasis posteriorly in the lungs. Tiny hiatal hernia. IMPRESSION: 1. 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 2. MILD DEGENERATIVE DISC DISEASE. ACCENTUATED MID THORACIC KYPHOSIS. 3. OTHERWISE, NO VERTEBRAL COMPRESSION COLLAPSE OR MALALIGNMENT.
[2021-08-07 11:22] LABS: Basophils % (A) 0 %; Eosinophils # (A) 0.1 k/uL (0-0.7); Eosinophils % (A) 1 %; HCT 45.1 % (39.0-53.0); HGB 14.6 gm/dL (13.0-17.5); Lymphocytes # (A) 2.1 k/uL (1.0-4.8); Lymphocytes % (A) 17 %; MCH 33.5 pg (25.0-35.0); MCHC 32.4 g/dL (31.0-37.0); MCV 103.3 fL (80.0-100.0); Macrocytosis Slight; Mean Platelet Volume 8.4; Monocytes # (A) 0.9 k/uL (0-1.0); Monocytes % (A) 7 %; Neutrophils % (A) 73 %; Platelet Count 279 k/uL (150-450); RBC 4.36 m/uL (4.30-5.90); RDW 13.8 % (11.5-15.5); WBC 12.4 k/uL (3.8-10.6)
--- NOTE | 2021-08-07 11:38 | XR ---
EXAMINATION TYPE: XR chest 2V DATE OF EXAM: 08/07/2021 COMPARISON: 07/20/2021 HISTORY: 75-year-old male with weakness TECHNIQUE: AP and lateral views FINDINGS: Heart normal size.. Some strandy atelectasis in the lower lungs. No consolidation, pneumothorax, or p leural effusion seen. Patient is rotated slightly towards the right. Suspected nipple shadow projecti ng at the periphery of the left knee. IMPRESSION: Chronic changes. Suspect nipple shadow at the left base. No definite acute process.
[2021-08-07 11:39] LABS: ALT 19 U/L (4-49); AST 25 U/L (17-59); African American GFR (CKD) >90 (>60 ml/min/1.73 sqM); Albumin 2.7 g/dL (3.5-5.0); Alkaline Phosphatase 115 U/L (38-126); Anion Gap 5 mmol/L; Blood Urea Nitrogen 16 mg/dL (9-20); Calcium 7.5 mg/dL (8.4-10.2); Carbon Dioxide 26 mmol/L (22-30); Chloride 107 mmol/L (98-107); Glucose 76 mg/dL (74-99); Non-African American GFR(CKD) 89 (>60 ml/min/1.73 sqM); Partial Thromboplastin Time 25.2 sec (22.0-30.0); Potassium 3.6 mmol/L (3.5-5.1); Prothrombin Time 10.6 sec (9.0-12.0); Sodium 138 mmol/L (137-145); Total Protein 5.7 g/dL (6.3-8.2)
--- NOTE | 2021-08-07 11:43 | XR ---
EXAMINATION TYPE: XR clavicle 2 views RT, XR hand complete 3 views RT, XR forearm 2 views RT, XR shou lder complete 3 views RT, XR humerus 2 views RT DATE OF EXAM: 08/07/2021 COMPARISON: NONE HISTORY: 75-year-old male pain after fall FINDINGS: Right Clavicle: Chronic fracture deformity proximal third right clavicle adjacent to the sternoclavicular joint appea rs chronic. Mild to moderate degenerative change AC joint with prominent inferior spurring. Right shoulder: Subacromial space is preserved. Mild sclerosis greater tuberosity. Osteopenia. No acute fracture, sub luxation, or dislocation. Right humerus: No humeral shaft fracture. Assessment for elbow joint effusion limited due to obliquity at the elbow. Right forearm: Assessment for elbow joint effusion limited due to obliquity on the lateral view. No acute fracture s een. Hand: Degenerative joint space narrowing second and third MCP joints. Severe at the first CMC joint and mil [id number] at the triscaphe joint. Some additional scattered osteophytic changes within the DIP mayela ints especially of the thumb. No acute fracture or dislocation. IMPRESSION: 1. Right clavicle: There appears to be a chronic healed fracture deformity of the medial right clavic le. Clinically correlate with patient's trauma history. 2. Right shoulder: Moderate AC joint OA. Some changes of chronic rotator cuff tendinopathy. No acute osseous abnormality seen. 3. Right humerus: No humeral shaft fracture. 4. Right forearm: No acute osseous abnormality seen. 5. Right hand: Scattered osteoarthritic changes. No acute osseous abnormality seen.
--- NOTE | 2021-08-07 11:47 | XR ---
EXAMINATION TYPE: XR Hip RT and AP Pelvis, XR knee complete 3 views RT, XR femur 2 views RT DATE OF EXAM: 08/07/2021 COMPARISON: NONE HISTORY: 75-year-old male pain after fall FINDINGS: Pelvis and right hip: Mild degenerative change of the AC joints. Staple line in the midline pelvis from prior bowel surgery . Vascular calcifications in the pelvis. Mild degenerative change of both hips. There is osteopenia. No displaced fracture seen. CAM bumps bilateral femoral head neck junctions can be seen with femoral acetabular impingement syndrome. No displaced fracture seen. Right femur: No femoral shaft fracture. Muscle atrophy. The heterotopic ossification versus vascular calcification medial aspect of the distal third thigh. Right knee: Osteopenia. Vascular calcifications. Extensor mechanism intact. No significant knee joint effusion. IMPRESSION: 1. Pelvis and right hip: Mild bilateral hip OA. Osteopenia. No acute osseous abdomen body seen. 2. Right femur: No acute osseous abnormality seen. Muscle atrophy. 3. Right knee: Osteopenia. No joint effusion or acute osseous abnormality seen.
[2021-08-07] MEDS ORDERED: ASPIRIN 325 MG TAB PO STA (12:14)
[2021-08-07 12:56] LABS: Appearance,Urine Clear (Clear); Bilirubin,Urine Negative (Negative); Blood,Urine Negative (Negative); Color,Urine Yellow; Glucose,Urine (UA) Negative (Negative); Ketones,Urine 2+ (Negative); Leukocyte Esterase,Urine Negative (Negative); Nitrite,Urine Negative (Negative); PH, Urine 5.5 (5.0-8.0); Protein,Urine Trace (Negative); Specific Gravity,Urine 1.025 (1.001-1.035)
[2021-08-07] MEDS: SODIUM CHLORIDE 0.9% 1,000 ML IV SCH ×2 (13:25→22:54)
[2021-08-07] MEDS: PANTOPRAZOLE 40 MG TABLET PO SCH (13:28)
--- NOTE | 2021-08-07 14:00 | P.CNNES ---
History of Present Illness Consult date: 08/07/21 Requesting physician: Rodrigo Pitt Reason for Consult: subacute stroke History of Present Illness: This is a 75-year-old gentleman with history of corneal artery disease status post stent, myocardial infarction, tobacco use and alcohol use who presented emergency department because of tremor of the right arm or leg that was intermittent. She is accompanied by his daughter Heather and his brother will help with some of the history. It seems the patient was scheduled for colonoscopy today and the his brother noticed to the patient's having uncontrolled tremor of the arm or leg and the was intermittent and overall everything lasted for about a 15 minutes. Daughter noticed that he had the uncontrolled tremor of the right leg that was brief and during all these episodes that he is responsive. No urinary or bowel incontinence. Patient has a been having weakness over the right entire upper and lower extremity but he said it started initially in the right leg then he felt now is involving the right upper extremity and it's been going on for the last 1 month. He denies any history of stroke or TIA in the past. He smokes a pack a day and been smoking for years. It seems the upper family members that he drink significant alcohol use and but the patient stated that EEGs that cutting down on his alcoh ol. He had multiple falls at least 3 falls in the last 2 weeks. According to the daughter, patient notified the daughter that he had an episode of loss of consciousness. He does not have any history of seizures. Patient was stopped off of aspirin by his primary care physician according to the patient and family members since the he was told he does not need it. He was on statins in the past but stopped. Patient is not taking any antiplatelets and is not on any anticoagulation. Patient resides by himself. Some of the workup in the hospital consisted of: CT of the head is reported as findings this is involving, new subacute infarcts appear left frontal parietal junction greater than 6 hours in duration. Associate cortical subcortical hypodensity and sulcal effacement but no midline shift or acute intracranial hemorrhage. I personally reviewed the CT of the head and I agreed the patient does have at least subacute left frontal parietal stroke. CT cervical spine was reported as no evidence of acute traumatic Gaviria injury of the cervical spine. Degenerative changes of the cervical spine CT lumbar spine is reported as no vertebral compression collapse or malalignment. Mild to moderate multilevel degenerative disc disease. Mild to moderate neuroforaminal narrowing at L4-L5. EKG is reported as sinus rhythm with sinus arrhythmia. Review of Systems Review of system: The 12 point system was reviewed and apparent positive and negative per HPI. Past Medical History Past Medical History: Coronary Artery Disease (CAD), Cancer, Chest Pain / Angina, Hypertension, Rheumatoid Arthritis (RA) Additional Past Medical History / Comment(s): SKIN CANCER. DIVERTICULITIS History of Any Multi-Drug Resistant Organisms: None Reported Past Surgical History: Cholecystectomy Additional Past Surgical History / Comment(s): RETINOL DETACHMENT REPAIR (6 ON LEFT, 1 ON RIGHT). TESTICLE REMOVED Past Anesthesia/Blood Transfusion Reactions: No Reported Reaction, Motion Sickness Date of Last Stent Placement:: UNKNOWN DATE 2009 Past Psychological History: No Psychological Hx Reported Smoking Status: Current some day smoker Past Alcohol Use History: Daily Past Drug Use History: None Reported - Past Family History Daughter(s) Family Medical History: Cancer Medications and Allergies Home Medications Medication Instructions Recorded Confirmed Type Omeprazole 20 mg PO QAM 07/20/21 08/07/21 History Allergies Allergy/AdvReac Type Severity Reaction Status Date / Time venom-honey bee Allergy Anaphylaxis Verified 08/07/21 11:29 [bee venom (honey bee)] Physical Examination - Vital Signs Vital Signs: Vital Signs Temp Pulse Resp BP Pulse Ox 08/07/21 11:38 74 18 131/81 99 08/07/21 08:20 97.2 F L 82 18 137/87 98 Intake and Output 08/06/21 08/07/21 08/07/21 22:59 06:59 14:59 Other: Weight 56.019 kg GENERAL: The patient is lying in bed and is not in acute distress. CHEST: The heart rate is regular rate rhythm. No murmurs to auscultation. LUNG: Clear to auscultation bilaterally no wheezing noted throughout. Not labored breathing. ABDOMEN/GI: Bowel sounds present in all 4 quadrants. No tenderness to palpation throughout. MUSCOSKELETAL: Has different bruises throughout the body. NEUROLOGICAL: Higher mental function: The patient is awake, alert, oriented to self, place. Correctly stated the month and with options stated the year correctly. Is somewhat slow in responding. Is following simple commands. No aphasia. Appears sensory neglect over the right. . Cranial nerves: The pupils are round, equal and reactive to light. Visual dominguez are full to confrontation throughout. Extraocular movement is intact no nystagmus is noted. Facial sensation is normal to touch throughout. The facial strength is normal throughout. Hearing is mildly decreased bilaterally to hand rub. Tongue is midline and moved [id number] without any difficulty. No dysarthria is noted. Shoulder shrug is normal bilaterally. Motor: Gait is deferred because of his weakness. The strength is invidual muscles is hard to assess because of his cooperation but has more weakness over the right upper and lower extremity. Normal tone and bulk. Cerebellum: Normal finger to nose bilaterally. Sensation: Has decreased sensation to touch over the right upper extremity compared to left. It appears has sensory neglect on right lower on bilateral st imulation. Reflexes (right/left): 1+ throughout. Plantars are mute bilaterally. Results - Laboratory Findings CBC and BMP: 08/07/21 11:00 08/07/21 11:00 Abnormal Lab Findings: Abnormal Labs 08/07/21 08/07/21 08/07/21 08:59 11:00 11:00 WBC 12.4 H MCV 103.3 H Neutrophils # 9.0 H Calcium 7.5 L Total Protein 5.7 L Albumin 2.7 L Urine Protein Trace H Urine Ketones 2+ H Assessment and Plan Assessment: Subacute ischemic stroke over the left frontoparietal (on examination has weakness on right upper and lower extremity and decrease sensation over the right with appears sensory neglect over the right). Patient had weakness on the right side for past week weeks (initially started with lower then progressed to upper) Unknown cause of stroke but seems embolic Repeated episodes of jerking of extremities for the past one week. Rule out seizure especially with new onset stroke History of CAD s/p stent Significant alcohol use Tobacco use (smokes 1PPD for years) Plan: I started the patient on aspirin 81 mg daily. I'll not start the patient on dual antiplatelet because of the patient's the repeated episodes of falls which increases risk for bleed. Also started on a low dose of Lipitor 10 mg daily at bedtime for secondary stroke prophylaxis patient stated that he was on Lipitor in the past but did not like the feeling of the medication. If the patient has any side effects from Lipitor we'll stop it. Ordered carotid duplex, MRI of the brain. I ordered routine EEG since the patient having that these jerking episode to rule out any seizures. Ordered vitamin B12, folate level, TSH and hemoglobin A1c Continue neuro checks On cardiac monitoring PT OT and [employer] are consulted I started the patient on thiamine 100 mg daily. Regarding the mild to moderate spinal stenosis recommend the patient follow-up with orthopedic as an outpatient. Consider CIWA protocol and will defer management to Primary team. Patient was counseled on tobacco cessation for 3 minutes. Patient was also counseled on alcohol cessation. Will defer the rest of medical management to the primary team. For DVT prophylaxis I start the patient on subcu heparin 5000 every 12 hours The plan was discussed with the patient, his family members (daughter and brother) and all questions were answered. Thank you for the consultation. Slade Martínez M.D. Neuro-Hospitalist Time with Patient: Greater than 30
[2021-08-07] MEDS: THIAMINE 100 MG TAB PO SCH (14:59)
[2021-08-07] MEDS ORDERED: LORazepam 2 MG/ML INJ IV PRN ×2 (16:10)
[2021-08-07] MEDS ORDERED: THIAMINE 100 MG/ML 2 ML VIAL IM STA (16:13)
--- NOTE | 2021-08-07 18:50 | US ---
EXAMINATION TYPE: US carotid duplex BILAT DATE OF EXAM: 08/07/2021 COMPARISON: NONE CLINICAL HISTORY: stroke. EXAM MEASUREMENTS: RIGHT: Peak Systolic Velocity (PSV) cm/sec ----- Right CCA: 24.3 ----- Right ICA: 30.1 ----- Right ECA: 39.8 ICA/CCA ratio: 1.2 RIGHT: End Diastole cm/sec ----- Right CCA: 14.1 ----- Right ICA: 18.1 ----- Right ECA: 15.9 LEFT: Peak Systolic Velocity (PSV) cm/sec ----- Left CCA: 54.5 ----- Left ICA: 63.2 ----- Left ECA: 77.4 ICA/CCA ratio: 1.2 LEFT: End Diastole cm/sec ----- Left CCA: 15.2 ----- Left ICA: 23.6 ----- Left ECA: 14.5 VERTEBRALS (direction of flow): Right Vertebral: Antegrade Left Vertebral: Antegrade Rhythm: Normal Right shows parvus tardus waveform throughout the visualized arterial vasculature. Left shows no significant velocity increases. IMPRESSION: Parvus tardus waveforms of the right visualized carotid system suggesting distal stenosis of the internal carotid artery. 1. No evidence or significant stenosis in the left carotid system. Criteria for Assigning % of Stenosis / Diameter reduction (Estimation based on the indirect measurements of the internal carotid artery velocities (ICA PSV). 1. Normal (no stenosis)=ICA PSV < 125 cm/s: ratio < 2.0: ICA EDV<40 cm/s. 2. Less than 50% stenosis=ICA PSV < 125 cm/s: ratio < 2.0: ICA EDV<40 cm/s. 3. 50 to 69% stenosis=ICA PSV of 125 to 230 cm/s: ration 2.0 ? 4.0: ICA EDV 40-100 cm/s. 4. Greater than 70% stenosis to near occlusion= ICA PSV > 230 cm/s: ratio > 4.0: ICA EDV > 100 cm/s. 5. Near occlusion= ICA PSV velocities may be low or undetectable: variable ratio and ICA EDV. 6. Total occlusion=unable to detect flow.
[2021-08-07] MEDS: HYDROcodone/APAP 5-325MG 1 EACH TAB PO PRN (21:13)
[2021-08-07] MEDS: ATORVASTATIN 10 MG TAB PO SCH (21:13)
[2021-08-07] MEDS: HEPARIN SODIUM,PORCINE/PF 5,000 UNIT/0.5 ML SYRINGE SQ SCH (21:13)
[2021-08-08 06:50] LABS: Glucose,Whole Blood 70 mg/dL (75-99)
[2021-08-08] MEDS: HYDROcodone/APAP 5-325MG 1 EACH TAB PO PRN ×3 (06:59→20:25)
[2021-08-08] MEDS: PANTOPRAZOLE 40 MG TABLET PO SCH (06:59)
[2021-08-08] MEDS: THIAMINE 100 MG TAB PO SCH ×5 (07:00→20:07)
[2021-08-08] MEDS: ASPIRIN 81 MG PO SCH (09:44)
[2021-08-08] MEDS: HEPARIN SODIUM,PORCINE/PF 5,000 UNIT/0.5 ML SYRINGE SQ SCH ×2 (10:45→20:25)
[2021-08-08 11:34] LABS: HCT 45.2 % (39.0-53.0); HGB 14.4 gm/dL (13.0-17.5); MCH 33.1 pg (25.0-35.0); MCHC 31.9 g/dL (31.0-37.0); MCV 103.9 fL (80.0-100.0); Macrocytosis Slight; Mean Platelet Volume 9.7; Platelet Count 263 k/uL (150-450); RBC 4.35 m/uL (4.30-5.90); RDW 13.9 % (11.5-15.5); WBC 9.1 k/uL (3.8-10.6)
[2021-08-08 11:44] LABS: African American GFR (CKD) >90 (>60 ml/min/1.73 sqM); Anion Gap 5 mmol/L; Blood Urea Nitrogen 15 mg/dL (9-20); Calcium 7.4 mg/dL (8.4-10.2); Carbon Dioxide 24 mmol/L (22-30); Chloride 108 mmol/L (98-107); Glucose 93 mg/dL (74-99); Non-African American GFR(CKD) 87 (>60 ml/min/1.73 sqM); Potassium 3.8 mmol/L (3.5-5.1); Sodium 137 mmol/L (137-145)
[2021-08-08 11:54] LABS: Glucose,Whole Blood 86 mg/dL (75-99)
--- NOTE | 2021-08-08 13:30 | P.CONS ---
History of Present Illness - Reason for Consult Consult date: 08/08/21 Carotid stenosis Requesting physician: Slade Martínez - Chief Complaint Weakness and fall - History of Present Illness This is a 75-year-old male who presented to the emergency department after being found on the floor by his brother who called EMS. She has a past medical hi story of coronary artery disease status post stenting, myocardial infarction, tobacco and alcohol abuse, hypertension, and skin cancer. Patient states he has cut pack and smokes a pack a day cigarettes, has been smoking for over 40 years. Patient states he was recently seen in the hospital approximately 10 days ago for follow. He states he's had multiple falls he is very weak, greatest weakness is in the right lower extremity. States that he also has jerking movements in his lower extremities. Patient was scheduled for colonoscopy and was doing his prep. He states he became very weak and could not get up. He was on the floor found in stool. He states that he has still having weakness in the right lower extremity, denies any blurred vision or difficulty speaking. States he does get jerking movements in the lower extremities. Denies any upper extremity weakness. The patient had multiple CT of the spine, multiple x-rays. Brain CT reports findings suggesting developing, now subacute infarct superior left frontoparietal junction greater than 6 hours in duration. Associated co rtical and subcortical hypodensity and sulcal effacement but no midline shift or acute intracranial hemorrhage. Findings are new from 07/20/2021 Carotid Doppler: Parvus tardus waveforms of the right visualized carotid system suggesting distal stenosis of the internal carotid artery. No evidence of significant stenosis of the left carotid system Past Medical History Past Medical History: Coronary Artery Disease (CAD), Cancer, Chest Pain / Angina, Hypertension, Rheumatoid Arthritis (RA) Additional Past Medical History / Comment(s): SKIN CANCER. DIVERTICULITIS History of Any Multi-Drug Resistant Organisms: None Reported Past Surgical History: Cholecystectomy Additional Past Surgical History / Comment(s): RETINOL DETACHMENT REPAIR (6 ON LEFT, 1 ON RIGHT). TESTICLE REMOVED Past Anesthesia/Blood Transfusion Reactions: No Reported Reaction, Motion Sickness Date of Last Stent Placement:: UNKNOWN DATE APPROX 2009 Past Psychological History: No Psychological Hx Reported Smoking Status: Current some day smoker Past Alcohol Use History: Daily Past Drug Use History: None Reported - Past Family History Daughter(s) Family Medical History: Cancer Medications and Allergies Home Medications Medication Instructions Recorded Confirmed Type Omeprazole 20 mg PO QAM 07/20/21 08/07/21 History Allergies Allergy/AdvReac Type Severity Reaction Status Date / Time venom-honey bee Allergy Anaphylaxis Verified 08/07/21 11:29 [bee venom (honey bee)] Physical Exam Vitals: Vital Signs Temp Pulse Pulse Resp BP BP Pulse Ox 08/08/21 12:00 98.1 F 84 18 133/69 97 08/08/21 08:00 98 F 84 18 126/74 97 08/08/21 04:00 97.9 F 72 18 109/68 95 08/08/21 02:00 72 16 08/08/21 00:00 97.6 F 72 16 104/66 96 08/07/21 20:00 97.8 F 83 16 107/61 96 08/07/21 15:27 98 F 91 17 132/86 97 08/07/21 13:41 76 18 133/78 99 Intake and Output 08/07/21 08/08/21 08/08/21 22:59 06:59 14:59 Output Total 200 100 Balance -200 -100 Output: Urine 200 100 Other: Voiding Method Urinal Urinal Weight 59.5 kg General appearance: The patient is alert, oriented, appears in no acute distress. HET: Head is normocephalic and atraumatic. Pupils are equal and reactive. Neck: Supple without lymphadenopathy. Trachea midline. No audible carotid bruit. Heart: S1 S2. Regular rate and rhythm. Lungs: Clear to auscultation bilaterally. Abdomen: Soft, nontender, nondistended. Extremities: Normal skin color and turgor. No cyanosis, rash, ulceration, clubbing, or edema. Positive bilateral femoral pulses. Nonpalpable popliteal pulses. Neurological: He is alert and oriented 3. Speech is fluent, tongue protrudes midline, facial symmetry. Right upper and lower extremity weakness. Results CBC & Chem 7: 08/08/21 10:43 08/08/21 10:43 Labs: Abnormal Lab Results - Last 24 Hours (Table) 08/07/21 08/08/21 08/08/21 Range/Units 08:59 06:31 10:43 MCV (80.0-100.0) fL Chloride 108 H (98-107) mmol/L POC Glucose (mg/dL) 70 L (75-99) mg/dL Calcium 7.4 L (8.4-10.2) mg/dL Urine Protein Trace H (Negative) Urine Ketones 2+ H (Negative) 08/08/21 Range/Units 10:43 MCV 103.9 H (80.0-100.0) fL Chloride (98-107) mmol/L POC Glucose (mg/dL) (75-99) mg/dL Calcium (8.4-10.2) mg/dL Urine Protein (Negative) Urine Ketones (Negative) Comments: Brain CT reports findings suggesting developing, now subacute infarct superior left frontoparietal junction greater than 6 hours in duration. Associated cortical and subcortical hypodensity and sulcal effacement but no midline shift or acute intracranial hemorrhage. Findings are new from 07/20/2021 Carotid Doppler: Parvus tardus waveforms of the right visualized carotid system suggesting distal stenosis of the internal carotid artery. No evidence of significant stenosis of the left carotid system Assessment and Plan Assessment: 1. 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 Subacute ischemic stroke over left frontoparietal region. Patient presenting with weakness of the right upper and lower extremity 3. Multiple Recent falls 4. History coronary artery disease status post stent 5. Tobacco abuse 6. Alcohol abuse Plan: 1. CTA angiogram chest and neck ordered 2. Continue low-dose daily aspirin and a atorvastatin as ordered. 3. Appreciate recommendations from neurology 4. No significant ICA stenosis noted on carotid duplex 4. Further recommendations forthcoming based on CT angiogram chest and neck Thank you for this consultation, we'll continue to follow. The impression and plan of care has been dictated as directed. Dr. Charlton I performed a history and examination of this patient, discussed the same with the dictator. I agree with the dictator's note ,documented as a scribe. Any additional findings or plans will be noted.
--- NOTE | 2021-08-08 14:09 | P.CNOR ---
History of Present Illness - [facility] Consult date: 08/08/21 Requesting physician: Slade Martínez Consult reason: other (lumbar and cervical spondylosis with recurrent falls) History of present illness: Patient is a 75-year-old male with a history of coronary artery disease status post stent, myocardial infarction, tobacco and alcohol use who presented to [facility] emergency department on 08/07/2021 status post multiple falls at home. Patient was scheduled for colonoscopy on 08/07/2021, however, his brother noticed that he was having tremors of both the right upper and lower extremities at home. Therefore, they decided to bring him to the emergency department. Patient seen at bedside this morning. Patient says about 2 weeks ago he had increasing right lower extremity weakness to the point where he was not able to use his right leg at all. Patient says his brother did give him a walker to help him ambulate a few weeks back. He says he does have numbness and tingling throughout the right lower extremity as well as the right upper extremity. Patient says he is able to use his right upper extremity a bit. 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 Patient says he has had previous concussions in the past as well as previous strokes. Patient says he was on blood thinners until about 2 years ago when his PCP decided to take him off blood thinners. CT of the brain performed here in the hospital does show subacute infarcts that appear to be in the left frontal parietal junction. Patient does complain of some back pain and he says is mostly in his neck as well as his lower back. Patient denies any radiation of back pain. Patient says he has had back pain that has been chronic in demetrice ure. He denies any new symptoms in his back. Patient denies any saddle anesthesia. Patient denies any loss of bowel/bladder control. Patient says he does drink alcohol frequently and has smoked a pack a day for many years. Patient denies chest pain, fever, increased shortness of breath, nausea, vomiting, change in vision, loss of bowel/bladder control. CT of cervical spine does show mild anterolisthesis of C7-T1 as well as generalized cervical stenosis and some mild neuroforaminal stenosis throughout cervical spine. CT of thoracic spine does demonstrate some degenerative disc disease without evidence of any vertebral compression fractures. CT of lumbar spine demonstrates [id number] rate degenerative disc disease as well as mild central canal lumbar stenosis due to disc bulge at L2-L3. Past Medical History Past Medical History: Coronary Artery Disease (CAD), Cancer, Chest Pain / Angina, Hypertension, Rheumatoid Arthritis (RA) Additional Past Medical History / Comment(s): SKIN CANCER. DIVERTICULITIS History of Any Multi-Drug Resistant Organisms: None Reported Past Surgical History: Cholecystectomy Additional Past Surgical History / Comment(s): RETINOL DETACHMENT REPAIR (6 ON LEFT, 1 ON RIGHT). TESTICLE REMOVED Past Anesthesia/Blood Transfusion Reactions: No Reported Reaction, Motion Sickness Date of Last Stent Placement:: UNKNOWN DATE 2009 Past Psychological History: No Psychological Hx Reported Smoking Status: Current some day smoker Past Alcohol Use History: Daily Past Drug Use History: None Reported - Past Family History Daughter(s) Family Medical History: Cancer Medications and Allergies Home Medications Medication Instructions Recorded Confirmed Type Omeprazole 20 mg PO QAM 07/20/21 08/07/21 History Allergies Allergy/AdvReac Type Severity Reaction Status Date / Time venom-honey bee Allergy Anaphylaxis Verified 08/07/21 11:29 [bee venom (honey bee)] Physical Examination Inspection: Negative for any open fractures, significant erythema, significant ecchymosis throughout exam. There are several scars and scabs along the right lower extremity. There is some mild ecchymosis along the right forearm. Sensation: Patient is hypersensitive to light touch throughout the right lower extremity. Patient is hypersensitive to light touch in the right upper extremity along the forearm and dorsum of the hand as well as digits 3 through 5. Sensation is intact throughout the left upper extremity and left lower extremity. Palpation: + TTP throughout RLE and distal portion of RUE. Mild TTP throughout cervical spine at midline as well as lumbar spine at midline. NTTP throughout r est of exam. ROM: Patient has full range of motion in left upper left lower extremities on exam. Patient has limited range of motion right shoulder forward elevation. Patient is unable to fully extend/flex digits 3 through 5 in right hand. Patient unable to move RLE Motor: Right lower extremity 0/5 in all major motor groups; left lower extremity 4+/5 in all major motor groups. Left upper extremity 4+/5 in all major motor groups. Licensing Director strength 5+/5 in left hand. Licensing Director strength 2/5 in right hand. RUE: 4-/5 resisted abduction, forward elevation. 4/5 resisted elbow flexion. 3/5 resisted elbow extension. Special tests: Negative Anatoliy's bilaterally. Negative Homans bilaterally. Negative clonus bilaterally Results - Labs Labs: Abnormal Lab Results - Last 24 Hours (Table) 08/07/21 08/07/21 08/07/21 Range/Units 08:59 11:00 11:00 WBC 12.4 H (3.8-10.6) k/uL MCV 103.3 H (80.0-100.0) fL Neutrophils # 9.0 H (1.3-7.7) k/uL POC Glucose (mg/dL) (75-99) mg/dL Calcium 7.5 L (8.4-10.2) mg/dL Total Protein 5.7 L (6.3-8.2) g/dL Albumin 2.7 L (3.5-5.0) g/dL Urine Protein Trace H (Negative) Urine Ketones 2+ H (Negative) 08/08/21 Range/Units 06:31 WBC (3.8-10.6) k/uL MCV (80.0-100.0) fL Neutrophils # (1.3-7.7) k/uL POC Glucose (mg/dL) 70 L (75-99) mg/dL Calcium (8.4-10.2) mg/dL Total Protein (6.3-8.2) g/dL Albumin (3.5-5.0) g/dL Urine Protein (Negative) Urine Ketones (Negative) H & H 08/07/21 Range/Units 11:00 Hgb 14.6 (13.0-17.5) gm/dL Hct 45.1 (39.0-53.0) % Coagulation 08/07/21 Range/Units 11:00 INR 1.0 (<1.2) Result Diagrams: 08/08/21 10:43 08/08/21 10:43 Assessment and Plan Assessment: 1. Degenerative disc disease; spinal stenosis 2. Anterolisthesis of C7-T1 3. Neuroforaminal stenosis at C2-C3, left; bilateral C4-C5; C5-C6, right; C6 to C7 left 4. L2-L3 disc bulge 5. Multiple medical comorbidities Plan: 1. Degenerative disc disease; spinal stenosis; Anterolisthesis of C7-T1; N euroforaminal stenosis at C2-C3, left; bilateral C4-C5; C5-C6, right; C6 to C7 left; L2-L3 disc bulge - Patient stable at bedside this morning. CT brain positive for subacute infarct at temporal-parietal junction on left side. With patient's history of previous strokes, CAD, smoking and alcohol use, weakness and hyperesthesia in RLE and RUE are likely due to strokes. Patient does not present with any saddle anesthesia. Central canal stenosis and neuroforaminal stenosis are both mild-moderate at levels in cervical and lumbar spine, likely not the cause for RLE/RUE symptoms. At this time we do not recommend any emergent/urgent orthopedic surgical intervention. We recommend conservative management with pain medication as well as physical therapy. Course of steroids may be beneficial. Patient may follow up in office for further evaluation. 2. Appreciate medical and neuro management 3. DVT ppx - Aspirin; Heparin 4. GI ppx - Protonix 5. PT/OT recommendations 6. Appreciate consult Time with Patient: Less than 30
[2021-08-08 14:28] LABS: Chol/HDL Ratio 2.31 Ratio; LDL Cholesterol,Calculated 64.1 mg/dL (0.0-131.0); VLDL Calculation 18.24 mg/dL (5.00-40.00)
--- NOTE | 2021-08-08 15:02 | CT ---
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 CONTRAST: CTA scan of the thorax is performed with IV Contrast, patient injected with 100 mL of Isovue 370, pul monary embolism protocol. 3-D postprocessing was performed. FINDINGS: LUNGS: There are small bibasilar posterior lung infiltrates with a small left pleural effusion. There is mil d peribronchial cuffing in the lower lobes. Pneumonia is not excluded. The great vessels the chest are normal and there is no mediastinal, hilar or axillary adenopathy. There is no pneumothorax. There are no filling defects within the pulmonary artery or segmental branches to suggest pulmonary e mbolism. The osseous structures are intact Impression: 1. Small posterior bibasilar lung infiltrates with small left effusion and peribronchial cuffing not identified on the prior study. The findings could indicate pneumonia. 2. No evidence of pulmonary embolism.
--- NOTE | 2021-08-08 15:17 | CT ---
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 in chest mGycm. Automated Exposure Control for Dose Reduction was Utilized. TECHNIQUE: CTA scan of the head and neck is performed with IV Contrast, patient injected with 100 mL of Isovue 370, axial images are obtained, coronal and sagittal reformatted images are reviewed. 3D r econstructed images are created on an independent workstation and reviewed. FINDINGS: There are calcified plaques the brachiocephalic origins but no significant stenosis. There is dense eccentric calcification in the right carotid bifurcation resulting in a moderate to po ssibly severe 60-70% stenosis of the origin of the right internal carotid artery. There is mild to moderate eccentric calcified plaque of the left carotid bifurcation resulting in a m ild proximal left internal carotid artery stenosis. The visualized portions of the intracranial circulation reveal no segmental occlusion or stenosis. IMPRESSION: 1. Moderate to severe, approximate 60-70% proximal right internal carotid artery stenosis secondary t o calcified plaque of the right carotid bifurcation. 2. Mild left internal carotid artery stenosis secondary to moderate calcified plaque at the left rivers tid bifurcation.
--- NOTE | 2021-08-08 15:29 | P.PN ---
Subjective Progress Note Date: 08/08/21 The patient is seen at bedside and is accompanied by his daughter. He feels somewhat more confused today. Otherwise feels about the same. Patient had POC glucose as low as 70 today very early in the morning. Objective - Vital Signs Vital signs: Vital Signs Temp 98.1 F 08/08/21 12:00 Pulse 84 08/08/21 12:00 Resp 18 08/08/21 12:00 BP 133/69 08/08/21 12:00 Pulse Ox 97 08/08/21 12:00 Intake & Output 08/07/21 08/08/21 08/08/21 18:59 06:59 18:59 Output Total 200 100 Balance -200 -100 Weight 56.019 kg 59.5 kg Output: Urine 200 100 Other: Voiding Method Urinal Urinal - Exam GENERAL: The patient is lying in bed and is not in acute distress. NEUROLOGICAL: Higher mental function: The patient is awake, alert, oriented to self, place. Correctly stated the month and with options stated the year correctly. Is somewhat slow in responding. Is following simple commands. No aphasia. Appears sensory neglect over the right. . Cranial nerves: The pupils are round, equal and reactive to light. Visual dominguez are full to confrontation throughout. Extraocular movement is intact no nystagmus is noted. Facial sensation is normal to touch throughout. The facial strength is normal throughout. Hearing is mildly decreased bilaterally to hand rub. Tongue is midline and moved [id number] without any difficulty. No dysarthria is noted. Shoulder shrug is normal bilaterally. Motor: Gait is deferred because of his weakness. The strength is invidual muscles is hard to assess because of his cooperation but has more weakness over the right upper and lower extremity. Normal tone and bulk. Cerebellum: Normal finger to nose bilaterally. Sensation: Has decreased sensation to touch over the right upper extremity hoda red to left. It appears has sensory neglect on right lower on bilateral stimulation. Reflexes (right/left): 1+ throughout. Plantars are mute bilaterally. WORK-UP: Lipid panel is triglyceride of 91, cholesterol 145, LDL 64 and HDL of 62. Hemoglobin A1c is 5.5. Vitamin B12 is 533 Serum folate is 10.40. TSH is 0.995 CT of the head is reported as findings this is involving, new subacute infarcts appear left frontal parietal junction greater than 6 hours in duration. Associate cortical subcortical hypodensity and sulcal effacement but no midline shift or acute intracranial hemorrhage. I personally reviewed the CT of the head and I agreed the patient does have at least subacute left frontal parietal stroke. CT cervical spine was reported as no evidence of acute traumatic Gaviria injury of the cervical spine. Degenerative changes of the cervical spine CT lumbar spine is reported as no vertebral compression collapse or malalignment. Mild to moderate multilevel degenerative disc disease. Mild to moderate neuroforaminal narrowing at L4-L5. Carotid duplex is reported as parvus tardus waveform of the right visualized carotid system suggesting distal stenosis of the internal carotid artery. No evidence of significant stenosis in the left carotid system. - Labs CBC & Chem 7: 08/08/21 10:43 08/08/21 10:43 Labs: Abnormal Lab Results - Last 24 Hours (Table) 08/07/21 08/08/21 08/08/21 Range/Units 11:00 06:31 10:43 MCV (80.0-100.0) fL Chloride 108 H (98-107) mmol/L POC Glucose (mg/dL) 70 L (75-99) mg/dL Calcium 7.4 L (8.4-10.2) mg/dL HDL Cholesterol 62.70 H (40.00-60.00) mg/dL 08/08/21 Range/Units 10:43 MCV 103.9 H (80.0-100.0) fL Chloride (98-107) mmol/L POC Glucose (mg/dL) (75-99) mg/dL Calcium (8.4-10.2) mg/dL HDL Cholesterol (40.00-60.00) mg/dL Microbiology - Last 24 Hours (Table) 08/07/21 11:00 Blood Culture - Preliminary Blood No Growth after 24 hours 08/07/21 10:45 Blood Culture - Preliminary Blood No Growth after 24 hours Assessment and Plan Assessment: Subacute ischemic stroke over the left frontoparietal (on examination has weakness on right upper and lower extremity and decrease sensation over the right with appears sensory neglect over the right). Patient had weakness on the right side for past week weeks (initially started with lower then progressed to upper) Unknown cause of stroke but seems embolic Repeated episodes of jerking of extremities for the past one week. Rule out seizure especially with new onset stroke Hypoglycemia (as low as 70 today). History of CAD s/p stent Significant alcohol use Tobacco use (smokes 1PPD for years) Plan: Continues aspirin 81 mg daily (new and has been off for a while). I'll not start the patient on dual antiplatelet because of the patient's the repeated episodes of falls which increases risk for bleed. Continue low dose of Lipitor 10 mg daily at bedtime for secondary stroke prophylaxis patient stated that he was on Lipitor in the past but did not like the feeling of the medication. If the patient has any side effects from Lipitor we'll stop it. Carotid duplex is reported as parvus tardus waveform of the right visualized carotid system suggesting distal stenosis of the internal carotid artery. No evidence of significant stenosis in the left carotid system. Therefore consulted vascular surgery team. Pending MRI Brain, 2D echo and routine EEG. EEG is ordered since having repeated body jerk to rule out seizures. Continue neuro checks On cardiac monitoring PT OT and LABORATORY TESTER are consulted Continue thiamine 100 mg daily. Regarding the mild to moderate spinal stenosis since patient: Consulted Orthopedic team. Consider CIWA protocol and will defer management to Primary team. Please avoid hypoglycemia and will defer management to his primary team. Will defer the rest of medical management to the primary team. For DVT prophylaxis Continue subcu heparin 5000 every 12 hours The plan was discussed with the patient, his family members (daughter) and all questions were answered. Dr. Amaya is covering neurology service tomorrow AM then Dr. Leonard starts Wednesday AM. Slade Martínez M.D. Neuro-Hospitalist Time with Patient: Less than 30
--- NOTE | 2021-08-08 16:28 | P.HPIM ---
History of Present Illness H&P Date: 08/08/21 Chief Complaint: Reported fall 10 days ago, increased weakness with right lower extremity sp This is a 75-year-old gentleman with past medical history of CAD, hypertension, hyperlipidemia, nicotine and alcohol abuse, recent cardiac catheterization, April 2020 with 85% proximal to mid LAD involving diagonal 1, successful PCI of proximal to mid LAD with angioplasty of diagonal 1 and LAD, mild to moderate disease elsewhere including 50% and mid LAD and 30-40% proximal RCA-recommending maximizing medical treatment of proximal RCA and mid LAD, presented to the ER with recent multiple falls occurring about once a day with worsening weakness and spasticity in the right lower extremity. Reports he has not been sleeping well and has probably not slept for the last 3 days. Patient was initially scheduled yesterday for outpatient colonoscopy. Patient's brother arrived to take to appointment, and patient was discovered sitting in feces, unable to move himself out of the bed. Multiple radiology studies performed of the spine, extremities. Brain CT reported evolving now subacute infarct superior left frontoparietal junction greater than 6 hours in duration. Associated cortical and subcortical hypodensity and sulcal effacement but no midline shift or acute intracranial hemorrhage. Findings are new from 07/20/2021. Evaluated by both neurology and vascular surgery with recommendations noted and appreciated. 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 Hypoglycemic this morning with blood sugar of 70, repeat pending. Review of Systems ROS Statement: Those systems with pertinent positive or pertinent negative responses have been documented in the HPI. ROS Other: All systems not noted in ROS Statement are negative. Past Medical History Past Medical History: Coronary Artery Disease (CAD), Cancer, Chest Pain / Angina, Hypertension, Rheumatoid Arthritis (RA) Additional Past Medical History / Comment(s): SKIN CANCER. DIVERTICULITIS History of Any Multi-Drug Resistant Organisms: None Reported Past Surgical History: Cholecystectomy Additional Past Surgical History / Comment(s): RETINOL DETACHMENT REPAIR (6 ON LEFT, 1 ON RIGHT). TESTICLE REMOVED Past Anesthesia/Blood Transfusion Reactions: No Reported Reaction, Motion Sickness Date of Last Stent Placement:: UNKNOWN DATE 2009 Past Psychological History: No Psychological Hx Reported Smoking Status: Current some day smoker Past Alcohol Use History: Daily Past Drug Use History: None Reported - Past Family History Daughter(s) Family Medical History: Cancer Medications and Allergies Home Medications Medication Instructions Recorded Confirmed Type Omeprazole 20 mg PO QAM 07/20/21 08/07/21 History Allergies Allergy/AdvReac Type Severity Reaction Status Date / Time venom-honey bee Allergy Anaphylaxis Verified 08/07/21 11:29 [bee venom (honey bee)] Physical Exam Vitals: Vital Signs Temp Pulse Pulse Resp BP BP Pulse Ox 08/07/21 15:27 98 F 91 17 132/86 97 08/07/21 13:41 76 18 133/78 99 08/07/21 12:34 97.6 F 89 17 132/86 97 08/07/21 11:38 74 18 131/81 99 08/07/21 08:20 97.2 F L 82 18 137/87 98 Intake and Output 08/07/21 08/07/21 08/07/21 06:59 14:59 22:59 Other: Voiding Method Urinal Weight 56.019 kg General: [Cachectic, alert and oriented 2, sitting up in bed, no acute dist ress. HEENT: [Normocephalic, atraumatic ,PERRL. EOMI.] Neck: Supple, no JVD Cardiac: [Heart regular in rate and rhythm. No S3. No S4. No clicks, rubs. No murmur.] Lungs: [Clear to auscultation bilaterally.] Abdomen: [No mass. No organomegaly. Bowel sounds presnt and normoactive in all 4 quadrants.] Extremes: [No edema no cyanosis,normal pulses] Skin: Warm and dry, No rash. Neurologic: Alert and oriented 3, speech fluent, no facial asymmetry, right upper and lower extremity weakness present Lymphatic: [No adenopathy. Results CBC & Chem 7: 08/08/21 10:43 08/08/21 10:43 Labs: Abnormal Lab Results - Last 24 Hours (Table) 08/07/21 08/07/21 08/07/21 Range/Units 08:59 11:00 11:00 WBC 12.4 H (3.8-10.6) k/uL MCV 103.3 H (80.0-100.0) fL Neutrophils # 9.0 H (1.3-7.7) k/uL Calcium 7.5 L (8.4-10.2) mg/dL Total Protein 5.7 L (6.3-8.2) g/dL Albumin 2.7 L (3.5-5.0) g/dL Urine Protein Trace H (Negative) Urine Ketones 2+ H (Negative) Assessment and Plan Assessment: Subacute ischemic stroke involving left frontoparietal region, recent multiple falls daily over the last 10 days with involuntary spasticity, jerking of right lower extremity, rule out seizure 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 Neuro workup in progress including echo, MRI of brain, EEG Maintain statin, aspirin. CTA Angio of chest and neck pending.Smoking and alcohol cessation reinforced. GI prophylaxis in place with PPI. CIWA protocol. Follow closely with both vascular surgery and neurology. The impression and plan of care has been dictated as directed. : I performed a history and examination of this patient, discussed the same with the dictator. I agree with the dictator's note ,documented as a scribe. Any additional findings or plans will be noted.
[2021-08-08 17:00] LABS: Glucose,Whole Blood 116 mg/dL (75-99)
[2021-08-08] MEDS: SODIUM CHLORIDE 0.9% 1,000 ML IV SCH ×2 (18:01→20:18)
[2021-08-08] MEDS: DEXAMETHASONE SOD PHOSPHATE 4 MG/ML 1 ML VIAL IVP SCH (18:06)
--- NOTE | 2021-08-08 18:57 | EEG ---
ELECTROENCEPHALOGRAM REPORT This is a 75-year-old gentleman who had an episode of jerking of extremity, predominantly the right side. The video EEG is obtained to evaluate for seizure epileptiform activity. RELEVANT MEDICATION: The patient is not on any antiepileptic drugs. EEG TYPE: A routine 21 channel EEG is performed with video using the 10/20 electrode placement system. DESCRIPTION: Wakefulness is obtained. During awake state, the background consists of low to moderate voltage of 7 to 8 hertz that is well modulated sustained. There is no physiological stage 2 sleep architecture. There is no focal slowing. Interictal and ictal: Patient had body jerk seen on the EEG and was marked by the tech at 7:30 and 7:32am which is brief but without any correlation for seizure or epileptiform discharges. There is some myogenic artifact over the right temporal region during this episode. Clinically patient had jerking of extremity and appears lowers but hard to tell since was covered with blanket. Otherwise, no seizure epileptiform discharges seen on the EEG. ACTIVATION PROCEDURE: Photic stimulation did not evoke a posterior driving response. There is no abnormality during the photic stimulation. Hyperventilation is not performed. CLINICAL INTERPRETATION: This is an abnormal routine EEG. The background slowing is suggestive of mild encephalopathy. Otherwise, there is no focal seizure, epileptiform discharge or seizure on the EEG. The patient's episode of jerking that was captured on the EEG is without EEG correlate for seizure or epileptiform discharge. SANDI / BERT: [id number] / [place]
[2021-08-08] MEDS: ATORVASTATIN 10 MG TAB PO SCH (20:25)
[2021-08-08 21:08] LABS: Glucose,Whole Blood 136 mg/dL (75-99)
[2021-08-09] MEDS: DEXAMETHASONE SOD PHOSPHATE 4 MG/ML 1 ML VIAL IVP SCH ×5 (00:30→23:17)
[2021-08-09] MEDS: SODIUM CHLORIDE 0.9% 1,000 ML IV SCH ×2 (05:06→19:22)
[2021-08-09] MEDS: HYDROcodone/APAP 5-325MG 1 EACH TAB PO PRN ×3 (05:08→20:10)
[2021-08-09] MEDS: PANTOPRAZOLE 40 MG TABLET PO SCH (06:50)
[2021-08-09] MEDS: THIAMINE 100 MG TAB PO SCH ×2 (06:51→17:40)
[2021-08-09 06:55] LABS: Glucose,Whole Blood 116 mg/dL (75-99)
[2021-08-09] MEDS: ASPIRIN 81 MG PO SCH (09:34)
[2021-08-09] MEDS: HEPARIN SODIUM,PORCINE/PF 5,000 UNIT/0.5 ML SYRINGE SQ SCH ×2 (09:34→20:10)
[2021-08-09 11:26] LABS: Glucose,Whole Blood 151 mg/dL (75-99)
[2021-08-09] MEDS: BACLOFEN 10 MG TAB PO PRN ×2 (12:40→23:26)
[2021-08-09 16:39] LABS: Glucose,Whole Blood 161 mg/dL (75-99)
[2021-08-09] MEDS: ATORVASTATIN 10 MG TAB PO SCH (20:10)
[2021-08-09 20:47] LABS: Glucose,Whole Blood 140 mg/dL (75-99)
[2021-08-10] MEDS: SODIUM CHLORIDE 0.9% 1,000 ML IV SCH ×3 (01:41→20:42)
[2021-08-10] MEDS: LORazepam 2 MG/ML INJ IV PRN ×2 (03:12→11:32)
[2021-08-10] MEDS: DEXAMETHASONE SOD PHOSPHATE 4 MG/ML 1 ML VIAL IVP SCH ×4 (06:56→23:39)
[2021-08-10] MEDS: THIAMINE 100 MG TAB PO SCH ×3 (06:56→17:29)
[2021-08-10] MEDS: PANTOPRAZOLE 40 MG TABLET PO SCH (06:56)
[2021-08-10 06:57] LABS: Glucose,Whole Blood 120 mg/dL (75-99)
--- NOTE | 2021-08-10 07:29 | P.PN ---
Progress Note - Text Progress Note Date: 08/10/21 CTA of the chest does not demonstrate any evidence of great vessel or proximal/intrathoracic common carotid stenosis. No surgical intervention is warranted. Would be happy to reevaluate the patient to request.
[2021-08-10] MEDS: ASPIRIN 81 MG PO SCH (09:17)
[2021-08-10] MEDS: HEPARIN SODIUM,PORCINE/PF 5,000 UNIT/0.5 ML SYRINGE SQ SCH ×2 (09:17→20:36)
[2021-08-10] MEDS: BACLOFEN 10 MG TAB PO PRN (09:17)
--- NOTE | 2021-08-10 11:05 | P.PN ---
Subjective Progress Note Date: 08/10/21 Principal diagnosis: Left parietal CVA Patient fell approximately 10 days ago no evidence of epidural hematoma noted, patient developed evidence of subacute ischemic stroke left frontal parietal, patient has had a mild right-sided weakness for the past week initially began with a lower extreme progressive upper extreme Patient's known history of alcohol abuse as well as his past history of diverticular disease with subtotal colon resection approximately 6 years ago, patient has evidence of malnutrition mild dumping syndrome when encouraged with oral intake his nutritional state improves he's been recommended to take multiple vitamins when he remembers and to drink water when he remembers ,has demonstrated lack of interest in good nutritional intake because he gets exha usted, and he just doesn't eat he smokes cigarettes and drinks wine Objective - Vital Signs Vital signs: Vital Signs Temp 98.9 F 08/10/21 09:00 Pulse 96 08/10/21 09:00 Resp 18 08/10/21 09:00 BP 134/80 08/10/21 09:00 Pulse Ox 97 08/10/21 09:00 Intake & Output 08/09/21 08/10/21 08/10/21 18:59 06:59 18:59 Intake Total 750 Output Total 200 200 400 Balance 550 -200 -400 Intake: Intake, IV Titration 750 Amount Sodium Chloride 0.9% 1, 750 000 ml @ 100 mls/hr IV . Q10H [facility] Rx#:[id number] Oral 0 Output: Urine 200 200 400 Other: Voiding Method External Catheter External Catheter # Voids 3 - Exam General: [Patient awake, alert and oriented times 3. Patient in no acute distress.] HEENT: [PERRL. EOMI. No pharyngeal erythema or exudate.] Neck: [No adenopathy.] Cardiac: [Heart regular in rate and rhythm. No S3. No S4. No clicks, rubs. No murmur.] Lungs: [Clear to auscultation bilaterally.] Abdomen: [No mass. No organomegaly. Bowel sounds presnt and normoactive in all 4 quadrants.] Extremes: Has some interesting spasic episode to the right lower extreme and occasionally the right arm : Normal male genitalia Musculoskeletal: [No joint erythema, edema or tenderness.] Skin: [No rash.] Neurologic: [No lateralizing deficits. CN II - XII grossly intact.] Lymphatic: [No adenopathy.] - Labs CBC & Chem 7: 08/08/21 10:43 08/08/21 10:43 Labs: Abnormal Lab Results - Last 24 Hours (Table) 08/09/21 08/09/21 08/09/21 Range/Units 11:25 16:38 20:25 POC Glucose (mg/dL) 151 H 161 H 140 H (75-99) mg/dL 08/10/21 Range/Units 06:37 POC Glucose (mg/dL) 120 H (75-99) mg/dL Microbiology - Last 24 Hours (Table) 08/07/21 11:00 Blood Culture - Preliminary Blood No Growth after 48 hours 08/07/21 10:45 Blood Culture - Preliminary Blood No Growth after 48 hours Assessment and Plan (1) History of partial colectomy Current Visit: Yes Status: Acute Code(s): Z90.49 - ACQUIRED ABSENCE OF OTHER SPECIFIED PARTS OF DIGESTIVE TRACT SNOMED Code(s): 634433576 (2) CVA (cerebral vascular accident) Current Visit: Yes Status: Acute Code(s): I63.9 - CEREBRAL INFARCTION, UNSPECIFIED SNOMED Code(s): 180984189 (3) Dehydration Current Visit: Yes Status: Acute Code(s): E86.0 - DEHYDRATION SNOMED Code(s): 27775077 (4) Fall Current Visit: Yes Status: Acute Code(s): W19.XXXA - UNSPECIFIED FALL, INITIAL ENCOUNTER SNOMED Code(s): 9250569 (5) Weakness Current Visit: Yes Status: Acute Code(s): R53.1 - WEAKNESS SNOMED Code(s): 62395928 (6) COPD (chronic obstructive pulmonary disease) Current Visit: No Status: Acute Code(s): J44.9 - CHRONIC OBSTRUCTIVE PULMONARY DISEASE, UNSPECIFIED SNOMED Code(s): 87726390 (7) Diverticulitis large intestine Current Visit: No Status: Acute Code(s): K57.32 - DVTRCLI OF LG INT W/O PERFORATION OR ABSCESS W/O BLEEDING SNOMED Code(s): 9025310 Plan: Excess alcohol use Continue C [facility] protocol New subacute ischemic stroke Noncompliance with dietary intake Status post subtotal colectomy at risk for dehydration, and anorexia Patient does not eat well, basically smokes cigarettes drinks wine and occasionally drinks water when encouraged Time with Patient: Greater than 30
[2021-08-10 11:40] LABS: Glucose,Whole Blood 167 mg/dL (75-99)
--- NOTE | 2021-08-10 12:01 | P.PN ---
Subjective Progress Note Date: 08/09/21 The patient is very pleasant 75-year-old male who is seen in neurologic follow-up on August 09, 2021, via teleneurology. The chart is reviewed. The patient reportedly came into the emergency departm ent with complaints of frequent falling and reports that his right leg is "useless". Patient states that 1 month ago he awoke in the morning and found that he was unable to use his right hand. He says he did seek the care of his primary care physician. More recently, the patient has been having difficulty with balance walking and lower extremity strength. In addition, the patient reports having difficulty getting his words out. CT scan of the brain, performed in the emergency department revealed evidence of a subacute infarct involving the left frontoparietal junction. Stroke workup is underway. Objective - Vital Signs Vital signs: Vital Signs Temp 98.4 F 08/09/21 08:00 Pulse 77 08/09/21 08:00 Resp 17 08/09/21 05:00 BP 144/89 08/09/21 08:00 Pulse Ox 99 08/09/21 08:00 Intake & Output 08/08/21 08/09/21 08/09/21 18:59 06:59 18:59 Intake Total 358 Output Total 100 200 Balance 258 -200 Weight 59.5 kg Intake: Oral 358 Output: Urine 100 200 Other: Voiding Method Urinal # Voids 2 - Exam Gen.: The patient is reclining in the bed. He is well-nourished, well-developed and in no acute distress. HEENT: Head is atraumatic, normocephalic. Fundus not visualized. There is no scleral icterus. Mucous membranes are moist. Neck: Supple without carotid bruits Heart: Regular rate and rhythm Extremities: Without edema Neurological examination Mental status: The patient is awake and alert. He is oriented 3. He has evidence of word finding difficulties. He is able to accurately name "spectacles". Cranial nerves: Pupils are equal at 2 mm and reactive. Visual field testing reveals a questionable left upper quadrant visual field deficit. There is limitation of vertical gaze. Facial sensation is intact. There is slight flattening of the right nasolabial fold. Hearing is diminished. Shoulder shrug is diminished on the right. Tongue protrudes midline. Motor: Right upper and lower extremity strength is diminished as compared to the left. Coordination: The patient has difficulty with right sided finger to nose testing. Left finger to nose testing is intact. - Labs CBC & Chem 7: 08/08/21 10:43 08/08/21 10:43 Labs: Abnormal Lab Results - Last 24 Hours (Table) 08/07/21 08/08/21 08/08/21 Range/Units 11:00 10:43 16:49 Chloride 108 H (98-107) mmol/L POC Glucose (mg/dL) 116 H (75-99) mg/dL Calcium 7.4 L (8.4-10.2) mg/dL HDL Cholesterol 62.70 H (40.00-60.00) mg/dL 08/08/21 08/09/21 08/09/21 Range/Units 20:27 06:35 11:25 Chloride (98-107) mmol/L POC Glucose (mg/dL) 136 H 116 H 151 H (75-99) mg/dL Calcium (8.4-10.2) mg/dL HDL Cholesterol (40.00-60.00) mg/dL Microbiology - Last 24 Hours (Table) 08/07/21 11:00 Blood Culture - Preliminary Blood No Growth after 24 hours 08/07/21 10:45 Blood Culture - Preliminary Blood No Growth after 24 hours Assessment and Plan Assessment: Subacute ischemic stroke over the left frontoparietal (on examination has weakness on right upper and lower extremity and decrease sensation over the right with appears sensory neglect over the right). Patient had weakness on the right side for past week weeks (initially started with lower then progressed to upper) Unknown cause of stroke but seems embolic Repeated episodes of jerking of extremities for the past one week. Rule out seizure especially with new onset stroke Reported history of head pressure History of CAD s/p stent Significant alcohol use Tobacco use (smokes 1PPD for years) Plan: Continue aspirin 81 mg daily. Continue low dose of Lipitor 10 mg daily at bedtime for secondary stroke prophylaxis patient stated that he was on Lipitor in the past but did not like the feeling of the medication. If the patient has any side effects from Lipitor we'll stop it. Carotid duplex is reported as parvus tardus waveform of the right visualized carotid system suggesting distal stenosis of the internal carotid artery. No evidence of significant stenosis in the left carotid system. Await 2-D echocardiogram report Continue neuro checks On cardiac monitoring Continue PT and OT Continue thiamine 100 mg daily. Consider CIWA protocol and will defer management to Primary team. Please avoid hypoglycemia and will defer management to his primary team. Will defer the rest of medical management to the primary team. For DVT prophylaxis Continue subcu heparin 5000 every 12 hours Care management for discharge planning Time with Patient: Greater than 30 (Spent 35 minutes with patient's via telemedicine)
[2021-08-10 16:28] LABS: Glucose,Whole Blood 193 mg/dL (75-99)
[2021-08-10] MEDS: HYDROcodone/APAP 5-325MG 1 EACH TAB PO PRN (20:35)
[2021-08-10] MEDS: ATORVASTATIN 10 MG TAB PO SCH (20:36)
[2021-08-10 20:38] LABS: Glucose,Whole Blood 226 mg/dL (75-99)
[2021-08-11] MEDS: LORazepam 2 MG/ML INJ IV PRN ×2 (00:22→21:49)
[2021-08-11] MEDS: BACLOFEN 10 MG TAB PO PRN ×2 (04:21→20:13)
[2021-08-11] MEDS: HYDROcodone/APAP 5-325MG 1 EACH TAB PO PRN ×3 (04:21→17:42)
[2021-08-11 05:51] LABS: Glucose,Whole Blood 142 mg/dL (75-99)
[2021-08-11] MEDS: SODIUM CHLORIDE 0.9% 1,000 ML IV SCH ×2 (06:33→16:33)
[2021-08-11] MEDS: PANTOPRAZOLE 40 MG TABLET PO SCH (06:33)
[2021-08-11] MEDS: THIAMINE 100 MG TAB PO SCH ×3 (06:33→17:44)
[2021-08-11] MEDS: DEXAMETHASONE SOD PHOSPHATE 4 MG/ML 1 ML VIAL IVP SCH ×4 (06:33→23:52)
[2021-08-11] MEDS: ASPIRIN 81 MG PO SCH (08:19)
[2021-08-11] MEDS: HEPARIN SODIUM,PORCINE/PF 5,000 UNIT/0.5 ML SYRINGE SQ SCH ×2 (08:19→20:08)
[2021-08-11] MEDS ORDERED: ACETAMINOPHEN TAB 325 MG TAB PO PRN (09:54)
--- NOTE | 2021-08-11 11:11 | CDI ---
Documentation Clarification Form Date: 08/11/2021 10:55:54 AM From: Windy Lara CCS, CCDS Admit Date: 08/07/2021 12:14:00 PM Patient Name: Cornel Miranda Visit Number: [id number] Discharge Date: ATTENTION: The Clinical Documentation Specialists (CDI) and [facility] Coding Staff appreciate your assistance in clarifying documentation. Please respond to the clarification below the line at the bottom and electronically sign. The CDI & [facility] Coding staff will review the response and follow-up if needed. Please note: Queries are made part of the Legal Health Record. If you have any questions, please contact the author of this message via ITS. Dr. Dianne Leonard: Per the Neurology Consult on 08/07, the following is documented: Subacute ischemic stroke over the left frontoparietal (on examination has weakness on right upper and lower extremity and decrease sensation over the right with appears sensory neglect over the right). Patient had weakness on the right side for past week weeks (initially started with lower then progressed to upper) Unknown cause of stroke but seems embolic. Per the CT Brain: There is new cortical and subcortical hypodensity along the superior left frontoparietal junction extending down into the subcortical white matter. Associated sulcal effacement here. History/Risk Factors per the 08/08 H/P: CAD, Skin Cancer, Angina, Hypertension, Rheumatoid Arthritis, Diverticulitis. Smoker. Clinical Indicators: Presented to the ED on 08/07 via EMS with weakness and stroke symptoms and frequent falls. Has chronic right lower extremity weakness & chronic falls. Admit with CVA, Fall, Weakness, Dehydration 08/07 VS: T 97.2, P 82, R 18, BP 137/87, PO 98 RA, BMI: 20.8 08/07 LAB: WBC 12.4, Neutrophils9.0; Calcium 7.5, total protein 5.7, Albumin 2.7. 08/07 CT Brain: Evolving now subacute infarct superior left frontoparietal junction >6 hours in duration. Associated cortical 7 subcortical hypodenisty & sulcal effacement but no midline shift or acute intracranial hemorrhage. Treatment 08/07: Neuro assessments, Telemetry, MRI Brain (ordered 08/11), Blood cultures x2, IV Na Cl 1,000 mls @ 999 mls/hr q1H, IV morphine 4 mg x2, po Aspirin 325 mg x1, IV Ativan 1 mg q2H/prn x2, po Vit B1 100 mg Daily, Heparin 5,000 units sq q12H. In your professional opinion, can you please clarify the underlying cause, condition or process, if any, represented by these findings? Please specify the following: Vasogenic cerebral edema Other cerebral edema, please specify: Cerebral edema, etiology unknown Unable to determine Other condition, please specify: (Last Revision: December 2016) In my opinion, it is cytotoxic edema related to a subacute stroke. Please let me know if any other concerns. Dianne Leonard MD [facility]
[2021-08-11 11:41] LABS: Glucose,Whole Blood 191 mg/dL (75-99)
--- NOTE | 2021-08-11 12:07 | MR ---
EXAMINATION TYPE: MR brain wo/w con DATE OF EXAM: 08/11/2021 COMPARISON: HISTORY: Seizure. TECHNIQUE: Multiplanar, multisequence images of the brain and brainstem is performed without and with IV contras t, utilizing 6 mL intravenous Gadavist . FINDINGS: Diffusion weighted images demonstrate abnormal signal involving the posterior parietal lobe on the left with additional focal area in the lateral posterior parietal cortex and anterior parieta l lobe. There are numerous focal lesion seen in the right parietal white matter. All measure less columba n 5 mm. Large area in the left parietal lobe measures approximately 3.5 cm. There is no extra-axial fluid collection or significant white matter signal abnormality. The ventric ular system and cisternal spaces are normal in size and appearance. The brain volume is age appropri ate. Midline structures demonstrate normal morphology. The craniocervical junction appears within normal limits. Post contrast images demonstrate gyriform enhancement in the areas of suspected subacute isc hemia.. The dural venous sinuses appear patent. Changes of mild chronic sinusitis with a nasal septal deviation. Right-sided chronic mastoiditis. Orbits are symmetric. IMPRESSION: 1. Acute to subacute large area of infarct posterior left parietal lobe with additional areas in the lateral left parietal lobe and frontal left parietal lobe. 2. Acute to subacute punctate multiple areas of infarct in the white matter of the right parietal lob e. Consider embolic phenomenon. Report called to the patient's nurse 11:55 AM 08/11/2021.
[2021-08-11 12:10] LABS: Basophils % (A) 0 %; Eosinophils # (A) 0.1 k/uL (0-0.7); Eosinophils % (A) 1 %; HCT 48.3 % (39.0-53.0); HGB 15.4 gm/dL (13.0-17.5); Lymphocytes # (A) 0.7 k/uL (1.0-4.8); Lymphocytes % (A) 6 %; MCH 33.2 pg (25.0-35.0); MCHC 31.9 g/dL (31.0-37.0); MCV 104.2 fL (80.0-100.0); Macrocytosis Slight; Monocytes # (A) 0.8 k/uL (0-1.0); Monocytes % (A) 6 %; Neutrophils # (A) 11.2 k/uL (1.3-7.7); Neutrophils % (A) 86 %; Platelet Count 287 k/uL (150-450); RBC 4.63 m/uL (4.30-5.90); RDW 13.7 % (11.5-15.5)
[2021-08-11 12:21] LABS: African American GFR (CKD) >90 (>60 ml/min/1.73 sqM); Anion Gap 4 mmol/L; Blood Urea Nitrogen 18 mg/dL (9-20); Calcium 8.6 mg/dL (8.4-10.2); Carbon Dioxide 21 mmol/L (22-30); Chloride 108 mmol/L (98-107); Glucose 128 mg/dL (74-99); Magnesium 1.4 mg/dL (1.6-2.3); Non-African American GFR(CKD) >90 (>60 ml/min/1.73 sqM); Sodium 133 mmol/L (137-145)
[2021-08-11] MEDS ORDERED: Magnesium Replacement Protocol 1 EACH MISC MISCELLANE PRN (13:34)
[2021-08-11] MEDS: MAGNESIUM SULFATE-D5W PMX 1 GM in DEXTROSE/WATER 1 100ML.BAG IVPB SCH ×3 (14:08→16:30)
--- NOTE | 2021-08-11 14:28 | P.PN ---
Subjective Progress Note Date: 08/11/21 H&P Date: 08/08/21 Chief Complaint: Reported fall 10 days ago, increased weakness with right lower extremity sp. Left parietal CVA This is a 75-year-old gentleman with past medical history of CAD, hypertension, hyperlipidemia, nicotine and alcohol abuse, recent cardiac catheterization, April 2020 with 85% proximal to mid LAD involving diagonal 1, successful PCI of proximal to mid LAD with angioplasty of diagonal 1 and LAD, mild to moderate disease elsewhere including 50% and mid LAD and 30-40% proximal RCA-recommending maximizing medical treatment of proximal RCA and mid LAD, presented to the ER with recent multiple falls occurring about once a day with worsening weakness and spasticity in the right lower extremity. Reports he has not been sleeping well and has probably not slept for the last 3 days. Patient was initially scheduled yesterday for outpatient colonoscopy. Patient's brother arrived to take to appointment, and patient was discovered sitting in feces, unable to move himself out of the bed. Multiple radiology studies performed of the spine, extremities. Brain CT reported evolving now subacute infarct superior left fron toparietal junction greater than 6 hours in duration. Associated cortical and subcortical hypodensity and sulcal effacement but no midline shift or acute intracranial hemorrhage. Findings are new from 07/20/2021. Evaluated by both neurology and vascular surgery with recommendations noted and appreciated. 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 Hypoglycemic this morning with blood sugar of 70, repeat pending. Progress Note Date: 08/10/21 Principal diagnosis: Left parietal CVA Patient fell approximately 10 days ago no evidence of epidural hematoma noted, patient developed evidence of subacute ischemic stroke left frontal parietal, patient has had a mild right-sided weakness for the past week initially began with a lower extreme progressive upper extreme Patient's known history of alcohol abuse as well as his past history of diverticular disease with subtotal colon resection approximately 6 years ago, patient has evidence of malnutrition mild dumping syndrome when encouraged with oral intake his nutritional state improves he's been recommended to take multiple vitamins when he remembers and to drink water when he remembers ,has demonstrated lack of interest in good nutritional intake because he gets exhausted, and he just doesn't eat he smokes cigarettes and drinks wine. 08/11/2021 complaints of frontal pressure headache. Aphasic. Evaluated by speech therapy with recommendations noted and appreciated. Earlier this morning at around 09 10, developed a 14 beat run of nonsustained V. tach. Magnesium/labs pending. Denies chest pain, palpitations or shortness of breath. PT/OT recommending subacute rehab at discharge. Objective - Vital Signs Vital signs: Vital Signs Temp 97.7 F 08/11/21 08:24 Pulse 88 08/11/21 12:00 Resp 18 08/11/21 12:00 BP 138/91 08/11/21 12:00 Pulse Ox 97 08/11/21 12:00 Intake & Output 08/10/21 08/11/21 08/11/21 18:59 06:59 18:59 Intake Total 100 118 Output Total 400 700 Balance -300 -700 118 Weight 62 kg Intake: Intake, IV Titration 100 Amount Sodium Chloride 0.9% 1, 100 000 ml @ 100 mls/hr IV . Q10H [facility] Rx#:[id number] Oral 118 Output: Urine 400 700 Other: Voiding Method External Catheter External Catheter External Catheter - Exam General: [Cachectic, alert and oriented 2, sitting up in bed, no acute distress, aphasic HEENT: [Normocephalic, atraumatic ,PERRL. EOMI.] Neck: Supple, no JVD Cardiac: [Heart regular in rate and rhythm. No S3. No S4. No clicks, rubs. No murmur.] Lungs: [Clear to auscultation bilaterally.] Abdomen: [No mass. No organomegaly. Bowel sounds presnt and normoactive in all 4 quadrants.] Extremes: [No edema no cyanosis,normal pulses] Skin: Warm and dry, No rash. Neurologic: No lateralizing deficits. CN II - XII grossly intact. Lymphatic: [No adenopathy. - Labs CBC & Chem 7: 08/11/21 11:46 08/11/21 11:46 Labs: Abnormal Lab Results - Last 24 Hours (Table) 08/10/21 08/10/21 08/11/21 Range/Units 16:26 20:25 05:30 WBC (3.8-10.6) k/uL MCV (80.0-100.0) fL Neutrophils # (1.3-7.7) k/uL Lymphocytes # (1.0-4.8) k/uL Sodium (137-145) mmol/L Chloride (98-107) mmol/L Carbon Dioxide (22-30) mmol/L Glucose (74-99) mg/dL POC Glucose (mg/dL) 193 H 226 H 142 H (75-99) mg/dL Magnesium (1.6-2.3) mg/dL 08/11/21 08/11/21 08/11/21 Range/Units 11:40 11:46 11:46 WBC 13.0 H (3.8-10.6) k/uL MCV 104.2 H (80.0-100.0) fL Neutrophils # 11.2 H (1.3-7.7) k/uL Lymphocytes # 0.7 L (1.0-4.8) k/uL Sodium 133 L (137-145) mmol/L Chloride 108 H (98-107) mmol/L Carbon Dioxide 21 L (22-30) mmol/L Glucose 128 H (74-99) mg/dL POC Glucose (mg/dL) 191 H (75-99) mg/dL Magnesium 1.4 L (1.6-2.3) mg/dL Microbiology - Last 24 Hours (Table) 08/07/21 10:45 Blood Culture - Preliminary Blood No Growth after 96 hours 08/07/21 11:00 Blood Culture - Preliminary Blood No Growth after 96 hours Assessment and Plan Assessment: Subacute ischemic stroke involving left frontoparietal region, recent multiple falls daily over the last 10 days with involuntary spasticity, jerking of right lower extremity, rule out seizure 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 Further follow-up outpatient with vascular surgery for further monitoring. Nonsustained run of V. tach Hypoglycemia, resolved Dehydration secondary to poor water intake CAD, history of stent Alcohol abuse, drinks wine daily Nicotine dependence History of partial colectomy Moderate protein calorie malnutrition, secondary to poor diet intake, BMI 19.9 COPD, stable History of diverticulitis Plan: Continue on current medication regime ,monitoring and symptomatic treatment. Magnesium/labs pending . Cardiology consulted for nonsustained 14 beat run of V. tach .Tylenol for headache. Smoking and alcohol cessation reinf orced. Continue on statin, aspirin, PPI and CIWA protocol. Discharge planning in progress for tomorrow (CARLE[facility]) pending clearance/DC recommendations from all consults. The impression and plan of care has been dictated as directed. : I performed a history and examination of this patient, discussed the same with the dictator. I agree with the dictator's note ,documented as a scribe. Any additional findings or plans will be noted.
[2021-08-11 14:45] VITALS: BMI 20.7
[2021-08-11 16:28] LABS: Glucose,Whole Blood 239 mg/dL (75-99)
--- NOTE | 2021-08-11 16:44 | P.PN ---
Subjective Progress Note Date: 08/11/21 The patient is 75-year-old male who is seen in neurologic follow-up. The chart is reviewed. The patient reportedly came into the emergency department with complaints of frequent falling and reports that his right leg is "useless". Patient states that 1 month ago he awoke in the morning and found that he was unable to use his right hand. He says he did seek the care of his primary care physician. More recently, the patient has been having difficulty with balance walking and lower extremity strength. In addition, the patient reports having difficulty getting his words out. CT scan of the brain, performed in the emergency department revealed evidence of a subacute infarct involving the left frontoparietal junction. Patient at present complains of pressure headache, as if someone is pushing down. It is not squeezing headache. At present it is 8 on a scale of 1-10. Patient has smoked since age 25-32 years. He has smoked slightly less than one pack per day all these years. Objective - Vital Signs Vital signs: Vital Signs Temp 97.7 F 08/11/21 08:24 Pulse 88 08/11/21 14:00 Resp 18 08/11/21 14:00 BP 138/91 08/11/21 12:00 Pulse Ox 97 08/11/21 12:00 Intake & Output 08/10/21 08/11/21 08/11/21 18:59 06:59 18:59 Intake Total 100 118 Output Total 400 700 Balance -300 -700 118 Weight 62 kg 62 kg Intake: Intake, IV Titration 100 Amount Sodium Chloride 0.9% 1, 100 000 ml @ 100 mls/hr IV . Q10H [facility] Rx#:[id number] Oral 118 Output: Urine 400 700 Other: Voiding Method External Catheter External Catheter External Catheter - Exam GENERAL: The patient is lying in bed and is not in acute distress. His head is somewhat deviated to the right. Patient has slow mentation, prolonged latency to answer questions. NEUROLOGICAL: Higher mental function: The patient is awake, alert, oriented to self, place. Is following simple commands. No aphasia. Patient may be slightly dysarthric. Cranial nerves: The pupils are round, equal and reactive to light. Visual dominguez are full to confrontation throughout, with no neglect on double simultaneous stimulation. Extraocular movement is intact no nystagmus is noted. Facial sensation is normal to touch throughout. The facial strength is normal throughout. Hearing is mildly decreased bilaterally to hand rub. Tongue is midline and moved [id number] without any difficulty. No dysarthria is noted. Shoulder shrug is normal bilaterally. Motor: Gait is deferred because of his weakness. Patient's right sales route driver is very weak about 3, but normal on the left. The right arm droops down to the bed immediately. Left arm is normal. In the lower extremities his left leg is normal distally and proximally. Right lower extremity is about 4 at the hip, 4 at the ankle dorsiflexion, 5- at the plantarflexion. Cerebellum: Ataxic for [id number] testing on the right.. Sensation: Has decreased sensation to touch over the right upper extremity compared to left. In the lower extremities he was feeling better in the left lower extremity as compared to the right lower extremity. Reflexes (right/left): 1+ throughout. Plantars are hypersensitive bilaterally. WORK-UP: Lipid panel is triglyceride of 91, cholesterol 145, LDL 64 and HDL of 62. Hemoglobin A1c is 5.5. Vitamin B12 is 533 Serum folate is 10.40. TSH is 0.995 CT of the head is reported as findings this is involving, new subacute infarcts appear left frontal parietal junction greater than 6 hours in duration. Associate cortical subcortical hypodensity and sulcal effacement but no midline shift or acute intracranial hemorrhage. I personally reviewed the CT of the head and I agreed the patient does have at least subacute left frontal parietal stroke. CT cervical spine was reported as no evidence of acute traumatic Gaviria injury of the cervical spine. Degenerative changes of the cervical spine CT lumbar spine is reported as no vertebral compression collapse or malalignment. Mild to moderate multilevel degenerative disc disease. Mild to moderate neuroforaminal narrowing at L4-L5. Carotid duplex is reported as parvus tardus waveform of the right visualized carotid system suggesting distal stenosis of the internal carotid artery. No evidence of significant stenosis in the left carotid system. - Labs CBC & Chem 7: 08/11/21 11:46 08/11/21 11:46 Labs: Abnormal Lab Results - Last 24 Hours (Table) 08/10/21 08/10/21 08/11/21 Range/Units 16:26 20:25 05:30 WBC (3.8-10.6) k/uL MCV (80.0-100.0) fL Neutrophils # (1.3-7.7) k/uL Lymphocytes # (1.0-4.8) k/uL Sodium (137-145) mmol/L Chloride (98-107) mmol/L Carbon Dioxide (22-30) mmol/L Glucose (74-99) mg/dL POC Glucose (mg/dL) 193 H 226 H 142 H (75-99) mg/dL Magnesium (1.6-2.3) mg/dL 08/11/21 08/11/21 08/11/21 Range/Units 11:40 11:46 11:46 WBC 13.0 H (3.8-10.6) k/uL MCV 104.2 H (80.0-100.0) fL Neutrophils # 11.2 H (1.3-7.7) k/uL Lymphocytes # 0.7 L (1.0-4.8) k/uL Sodium 133 L (137-145) mmol/L Chloride 108 H (98-107) mmol/L Carbon Dioxide 21 L (22-30) mmol/L Glucose 128 H (74-99) mg/dL POC Glucose (mg/dL) 191 H (75-99) mg/dL Magnesium 1.4 L (1.6-2.3) mg/dL Microbiology - Last 24 Hours (Table) 08/07/21 10:45 Blood Culture - Preliminary Blood No Growth after 96 hours 08/07/21 11:00 Blood Culture - Preliminary Blood No Growth after 96 hours Assessment and Plan Assessment: Subacute ischemic stroke over the left frontoparietal (on examination has weakness on right upper and lower extremity and decrease sensation over the right with appears sensory neglect over the right). Patient had weakness on the right side for past week weeks (initially started with lower then progressed to upper) Unknown cause of stroke but seems embolic Repeated episodes of jerking of extremities for the past one week. Rule out seizure especially with new onset stroke Hypoglycemia (as low as 70, once, while in the hospital). History of CAD s/p stent Significant alcohol use Tobacco use (smokes <1PPD for years) Plan: * Patient states he used to take aspirin but has stopped taking aspirin "for months". We will place patient on dual antiplatelet medication for 21 days. Then stop Plavix and continue aspirin indefinitely. * Brain MRI revealed acute to subacute large area of infarct posterior left parietal lobe with additional areas in the lateral left parietal lobe and frontal left parietal lobe. Acute to subacute punctate multiple areas of infarct in the white matter of the right parietal lobe. Consider embolic phenomenon. * CTA of the neck showed moderate to severe approximately 60-70% proximal right ICA stenosis secondary to calcified plaque of the right carotid bifurcation. Mild left internal carotid artery stenosis agreed to moderate calcified plaque at the carotid bifurcation. * Continue low dose of Lipitor 10 mg daily at bedtime for secondary stroke prophylaxis patient stated that he was on Lipitor in the past but did not like the feeling of the medication. If the patient has any side effects from Lipitor we'll stop it. * Carotid duplex is reported as parvus tardus waveform of the right visualized carotid system suggesting distal stenosis of the internal carotid artery. No evidence of significant stenosis in the left carotid system. * Await 2-D echo. Report still pending. Patient may need a JOURDAN. * EEG revealed no epileptiform activity. * Continue neuro checks * PT OT and BUSINESS DEVELOPMENT REPRESENTATIVE are consulted * Continue thiamine 100 mg daily. * Please avoid hypoglycemia and will defer management to his primary team. * Will defer the rest of medical management to the primary team. * For DVT prophylaxis Continue subcu heparin 5000 every 12 hours
[2021-08-11] MEDS: CLOPIDOGREL 75 MG TAB PO SCH (17:46)
[2021-08-11] MEDS: ATORVASTATIN 10 MG TAB PO SCH (20:08)
[2021-08-11 20:34] LABS: Glucose,Whole Blood 137 mg/dL (75-99)
[2021-08-12 06:07] LABS: Glucose,Whole Blood 165 mg/dL (75-99)
[2021-08-12] MEDS: HYDROcodone/APAP 5-325MG 1 EACH TAB PO PRN ×3 (06:12→21:19)
[2021-08-12] MEDS: DEXAMETHASONE SOD PHOSPHATE 4 MG/ML 1 ML VIAL IVP SCH ×4 (06:12→23:48)
[2021-08-12] MEDS: PANTOPRAZOLE 40 MG TABLET PO SCH (06:12)
[2021-08-12] MEDS: THIAMINE 100 MG TAB PO SCH ×3 (06:12→16:16)
[2021-08-12] MEDS: SODIUM CHLORIDE 0.9% 1,000 ML IV SCH ×3 (06:13→23:11)
[2021-08-12] MEDS: HEPARIN SODIUM,PORCINE/PF 5,000 UNIT/0.5 ML SYRINGE SQ SCH ×2 (09:03→21:19)
[2021-08-12] MEDS: METOPROLOL SUCCINATE (ER) 25 MG TAB.ER.24H PO SCH (09:07)
[2021-08-12] MEDS: ASPIRIN 81 MG PO SCH (09:07)
[2021-08-12] MEDS: CLOPIDOGREL 75 MG TAB PO SCH (09:07)
[2021-08-12 11:44] LABS: Glucose,Whole Blood 150 mg/dL (75-99)
--- NOTE | 2021-08-12 11:52 | P.CRDCN ---
History of Present Illness Consult date: 08/12/21 History of present illness: HISTORY OF PRESENT ILLNESS: This is a 75-year-old male with a past medical history significant for coronary artery disease with previous stenting, TIA, tobacco abuse, vertigo, falls, and neuropathy. Patient follows in the office with Dr. Bender and was last seen in April 2020. We have been asked to see the patient in consultation for nonsustained ventricular tachycardia. Patient examined at the bedside. The p kari presented to the emergency room after being found on the floor by his family member who called EMS. The patient underwent MRI of the brain on 08/11/2021 revealing acute to subacute large area of infarct posterior left parietal lobe with additional areas in the lateral left parietal lobe and frontal left parietal lobe. Acute to subacute punctate multiple areas of infarct in the white matter of the right parietal lobe. Consider embolic phenomenon. The patient was noted to have a 14 beat run of nonsustained ventricular tachycardia. The patient denies any chest pain or pressure. He de nies any shortness of breath. He denies any dizziness or lightheadedness at the time of examination. He denies any palpitations. 2D echo was obtained and reviewed by Dr. Bender. However, due to IT issues this was not transferred to the EMR system appropriately. * EKG reveals sinus mechanism with no signs of acute ischemia * Chest xray chronic changes. No definite acute process. * Carotid Doppler: Parvus tardus waveforms of the right visualized carotid system suggesting distal stenosis of the internal carotid artery. No evidence of significant stenosis of the left carotid system * CTA neck: Moderate to severe, approximately 60-70% proximal right internal carotid artery stenosis secondary to calcified plaque of the right carotid bifurcation. Mild left internal carotid artery stenosis secondary to moderate calcified plaque at the left carotid bifurcation. * Brain CT reports findings suggesting developing, now subacute infarct superior left frontoparietal junction greater than 6 hours in duration. Associated cortical and subcortical hypodensity and sulcal effacement but no midline s hift or acute intracranial hemorrhage. Findings are new from 07/20/2021 * Laboratory data: * Current home cardiac medications include none * Cardiac catheterization history: April 2020 revealing 85% proximal LAD stenosis with some involvement of the diagonal branch. PCI of the proximal LAD with Anja plus to the diagonal branch secondary to some jailing of diagonal was performed. REVIEW OF SYSTEMS: At the time of my exam: CONSTITUTIONAL: Denies fever or chills. HEENT: Denies blurred vision, vision changes, or eye pain. Denies hemoptysis CARDIOVASCULAR: Denies chest pain. Denies orthopnea. Denies PND. Denies palpitations RESPIRATORY: Denies shortness of breath. GASTROINTESTINAL: Denies abdominal pain. Denies nausea or vomiting. HEMATOLOGIC: Denies bleeding disorders. GENITOURINARY: Denies any blood in urine. SKIN: Denies pruitis. Denies rash. PHYSICAL EXAM: VITAL SIGNS: Reviewed. GENERAL: Well-developed in no acute distress. HEENT: Head is normocephalic. Pupils are equal, round. Sclerae anicteric. Mucous membranes of the mouth are moist. Neck supple. No JVD or thyromegaly LUNGS: Respirations even and unlabored. Lungs diminished to auscultation bilaterally. HEART: Regular rate and rhythm. S1 and S2 heard. ABDOMEN: Soft. Nondistended. Nontender. EXTREMITIES: Normal range of motion. No clubbing or cyanosis. Peripheral pulses intact. No lower extremity edema NEUROLOGIC: Awake and alert. ASSESSMENT: Acute to subacute large area of infarct posterior left parietal lobe, per MRI Nonsustained ventricular tachycardia Coronary artery disease with previous PCI History of TIA History of vertigo History of frequent falls and neuropathy History of nicotine dependence Hypomagnesemia, improved PLAN: Continue current cardiac medications And metoprolol succinate 25 mg daily Continue to monitor electrolytes and supplement as needed Continue telemetry monitoring Further recommendations pending patient's course Nurse practitioner note has been reviewed by physician. Signing provider agrees with the documented findings, assessment, and plan of care. Past Medical History Past Medical History: Coronary Artery Disease (CAD), Cancer, Chest Pain / Angina, Hypertension, Rheumatoid Arthritis (RA) Additional Past Medical History / Comment(s): SKIN CANCER. DIVERTICULITIS History of Any Multi-Drug Resistant Organisms: None Reported Past Surgical History: Cholecystectomy Additional Past Surgical History / Comment(s): RETINOL DETACHMENT REPAIR (6 ON LEFT, 1 ON RIGHT). TESTICLE REMOVED Past Anesthesia/Blood Transfusion Reactions: No Reported Reaction, Motion Sickness Date of Last Stent Placement:: UNKNOWN DATE APPROX 2009 Past Psychological History: No Psychological Hx Reported Smoking Status: Current some day smoker Past Alcohol Use History: Daily Past Drug Use History: None Reported - Past Family History Daughter(s) Family Medical History: Cancer Medications and Allergies Home Medications Medication Instructions Recorded Confirmed Type Omeprazole 20 mg PO QAM 07/20/21 08/07/21 History Allergies Allergy/AdvReac Type Severity Reaction Status Date / Time venom-honey bee Allergy Anaphylaxis Verified 08/07/21 11:29 [bee venom (honey bee)] Physical Exam Vitals: Vital Signs Temp Pulse Resp BP Pulse Ox 08/12/21 08:00 97.5 F L 88 18 128/76 95 08/12/21 03:24 78 18 115/68 95 08/12/21 02:00 18 08/11/21 23:52 97.8 F 78 18 141/83 97 08/11/21 20:00 98.1 F 84 20 130/69 98 08/11/21 16:00 97.8 F 85 17 122/77 96 08/11/21 14:00 88 18 08/11/21 12:00 88 18 138/91 97 Intake and Output 08/11/21 08/12/21 08/12/21 22:59 06:59 14:59 Intake Total 120 50 118 Output Total 75 Balance 45 50 118 Intake: Oral 120 50 118 Output: Urine 75 Other: Voiding Method External Catheter External Catheter External Catheter # Voids 1 1 Results 08/11/21 11:46 08/11/21 11:46 CBC 08/11/21 Range/Units 11:46 WBC 13.0 H (3.8-10.6) k/uL RBC 4.63 (4.30-5.90) m/uL Hgb 15.4 (13.0-17.5) gm/dL Hct 48.3 (39.0-53.0) % Plt Count 287 (150-450) k/uL Comprehensive Metabolic Panel 08/11/21 Range/Units 11:46 Sodium 133 L (137-145) mmol/L Potassium 4.0 (3.5-5.1) mmol/L Chloride 108 H (98-107) mmol/L Carbon Dioxide 21 L (22-30) mmol/L BUN 18 (9-20) mg/dL Creatinine 0.77 (0.66-1.25) mg/dL Glucose 128 H (74-99) mg/dL Calcium 8.6 (8.4-10.2) mg/dL Current Medications Generic Name Dose Route Start Last Admin Trade Name Freq PRN Reason Stop Dose Admin Acetaminophen 650 mg 08/11/21 09:54 Acetaminophen Tab 325 Mg Tab PO Q6HR PRN Fever and/ or Mild Pain Hydrocodone Bitart/Acetaminophen 1 each 08/07/21 12:40 08/12/21 06:12 Hydrocodone/Apap 5-325mg 1 Each Tab PO 1 each Q6HR PRN Administration Pain Hydrocodone Bitart/Acetaminophen 2 each 08/07/21 12:41 08/09/21 20:10 Hydrocodone/Apap 5-325mg 1 Each Tab PO 2 each Q6HR PRN Administration Moderate to Severe Pain Aspirin 81 mg 08/08/21 09:00 08/12/21 09:07 Aspirin 81 Mg PO 81 mg DAILY TIFFANIE Administration Atorvastatin Calcium 10 mg 08/07/21 21:00 08/11/21 20:08 Atorvastatin 10 Mg Tab PO 10 mg HS TIFFANIE Administration Baclofen 5 mg 08/09/21 12:24 08/11/21 20:13 Baclofen 10 Mg Tab PO 5 mg QID PRN Administration Muscle Spasm Clopidogrel Bisulfate 75 mg 08/11/21 16:30 08/12/21 09:07 Clopidogrel 75 Mg Tab PO 75 mg DAILY TIFFANIE Administration Dexamethasone Sodium Phosphate 4 mg 08/08/21 18:00 08/12/21 06:12 Dexamethasone Sod Phosphate 4 Mg/Ml 1 Ml Vial IVP 4 mg Q6HR TIFFANIE Administration Heparin Sodium (Porcine) 5,000 unit 08/07/21 21:00 08/12/21 09:03 Heparin Sodium,Porcine/Pf 5,000 Unit/0.5 Ml Syringe SQ Not Given Q12HR TIFFANIE Sodium Chloride 1,000 mls @ 100 mls/hr 08/07/21 12:15 08/12/21 06:13 Saline 0.9% IV 100 mls/hr .Q10H TIFFANIE Administration Lorazepam 1 mg 08/07/21 16:10 08/11/21 21:49 Lorazepam 2 Mg/Ml Inj IV 1 mg Q2HR PRN Administration CIWA 8 or 9 Lorazepam 1 mg 08/07/21 16:10 Lorazepam 2 Mg/Ml Inj IV Q1HR PRN CIWA 10 to 15 Metoprolol Succinate 25 mg 08/12/21 09:00 08/12/21 09:07 Metoprolol Succinate (Er) 25 Mg Tab.Er.24h PO 25 mg DAILY TIFFANIE Administration Miscellaneous Information 1 each 08/11/21 13:34 Magnesium Replacement Protocol 1 Each Misc MISCELLANE DAILY PRN Per Protocol Protocol Pantoprazole Sodium 40 mg 08/07/21 12:45 08/12/21 06:12 Pantoprazole 40 Mg Tablet PO 40 mg [id number] TIFFANIE Administration Thiamine HCl 100 mg 08/07/21 13:30 08/12/21 09:07 Thiamine 100 Mg Tab PO 100 mg DAILY TIFFANIE Administration Thiamine HCl 100 mg 08/08/21 07:30 08/12/21 06:12 Thiamine 100 Mg Tab PO Not Given BID-W/MEALS TIFFANIE Intake and Output 08/11/21 08/12/21 08/12/21 22:59 06:59 14:59 Intake Total 120 50 118 Output Total 75 Balance 45 50 118 Intake: Oral 120 50 118 Output: Urine 75 Other: Voiding Method External Catheter External Catheter External Catheter # Voids 1 1 08/11/21 11:46 08/11/21 11:46
[2021-08-12] MEDS: ESCITALOPRAM 5 MG TAB PO SCH (12:55)
--- NOTE | 2021-08-12 15:10 | P.PN ---
Subjective Progress Note Date: 08/12/21 H&P Date: 08/08/21 Chief Complaint: Reported fall 10 days ago, increased weakness with right lower extremity sp. Left parietal CVA This is a 75-year-old gentleman with past medical history of CAD, hypertension, hyperlipidemia, nicotine and alcohol abuse, recent cardiac catheterization, April 2020 with 85% proximal to mid LAD involving diagonal 1, successful PCI of proximal to mid LAD with angioplasty of diagonal 1 and LAD, mild to moderate disease elsewhere including 50% and mid LAD and 30-40% proximal RCA-recommending maximizing medical treatment of proximal RCA and mid LAD, presented to the ER with recent multiple falls occurring about once a day with worsening weakness and spasticity in the right lower extremity. Reports he has not been sleeping well and has probably not slept for the last 3 days. Patient was initially scheduled yesterday for outpatient colonoscopy. Patient's brother arrived to take to appointment, and patient was discovered sitting in feces, unable to move himself out of the bed. Multiple radiology studies performed of the spine, extremities. Brain CT reported evolving now subacute infarct superior left fron toparietal junction greater than 6 hours in duration. Associated cortical and subcortical hypodensity and sulcal effacement but no midline shift or acute intracranial hemorrhage. Findings are new from 07/20/2021. Evaluated by both neurology and vascular surgery with recommendations noted and appreciated. 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 Hypoglycemic this morning with blood sugar of 70, repeat pending. Progress Note Date: 08/10/21 Principal diagnosis: Left parietal CVA Patient fell approximately 10 days ago no evidence of epidural hematoma noted, patient developed evidence of subacute ischemic stroke left frontal parietal, patient has had a mild right-sided weakness for the past week initially began with a lower extreme progressive upper extreme Patient's known history of alcohol abuse as well as his past history of diverticular disease with subtotal colon resection approximately 6 years ago, patient has evidence of malnutrition mild dumping syndrome when encouraged with oral intake his nutritional state improves he's been recommended to take multiple vitamins when he remembers and to drink water when he remembers ,has demonstrated lack of interest in good nutritional intake because he gets exhausted, and he just doesn't eat he smokes cigarettes and drinks wine. 08/11/2021 complaints of frontal pressure headache. Aphasic. Evaluated by speech therapy with recommendations noted and appreciated. Earlier this morning at around 09 10, developed a 14 beat run of nonsustained V. tach. Magnesium/labs pending. Denies chest pain, palpitations or shortness of breath. PT/OT recommending subacute rehab at discharge. 08/12/21 magnesium 1.4 yesterday, supplemented, currently 2.1 .telemetry sinus rhythm, evaluated by cardiology recommendations noted. Echo completed, pending. Evaluated by PT, reporting patient is impulsive, involuntary movements, stood at bedside, aphasic, possibly would be a candidate for inpatient rehab.-requesting further evaluation. Complains of head pressure now anteriorly located. Brain MRI reported acute distress subacute large area of infarct posterior left parietal lobe with additional areas in the lateral left parietal lobe and frontal left parietal lobe, acute to subacute acute punctate multiple areas of infarct in the white matter of the right parietal lobe, consider embolic phenomenon. Objective - Vital Signs Vital signs: Vital Signs Temp 97.5 F L 08/12/21 08:00 Pulse 88 08/12/21 08:00 Resp 18 08/12/21 08:00 BP 128/76 08/12/21 08:00 Pulse Ox 95 08/12/21 08:00 Intake & Output 08/11/21 08/12/21 08/12/21 18:59 06:59 18:59 Intake Total 238 50 118 Output Total 75 Balance 238 -25 118 Weight 62 kg Intake: Oral 238 50 118 Output: Urine 75 Other: Voiding Method External Catheter External Catheter External Catheter # Voids 1 - Exam General: [Cachectic, alert and oriented 2, sitting up in bed, no acute distress, aphasic HEENT: [Normocephalic, atraumatic ,PERRL. EOMI.] Neck: Supple, no JVD Cardiac: [Heart regular in rate and rhythm. No S3. No S4. No clicks, rubs. No murmur.] Lungs: [Clear to auscultation bilaterally.] Abdomen: [No mass. No organomegaly. Bowel sounds presnt and normoactive in all 4 quadrants.] Extremes: [No edema no cyanosis,normal pulses] Skin: Warm and dry, No rash. Neurologic: CN II - XII grossly intact . Decreased sensation over the right upper and lower extremities. Decreased strength on the right side, more so on the right upper extremity. - Labs CBC & Chem 7: 08/11/21 11:46 08/11/21 11:46 Labs: Abnormal Lab Results - Last 24 Hours (Table) 08/11/21 08/11/21 08/12/21 Range/Units 16:26 20:30 05:57 POC Glucose (mg/dL) 239 H 137 H 165 H (75-99) mg/dL 08/12/21 Range/Units 11:43 POC Glucose (mg/dL) 150 H (75-99) mg/dL Microbiology - Last 24 Hours (Table) 08/07/21 11:00 Blood Culture - Preliminary Blood No Growth after 120 hours 08/07/21 10:45 Blood Culture - Preliminary Blood No Growth after 120 hours Assessment and Plan Assessment: Subacute ischemic stroke involving left frontoparietal region, recent multiple falls daily over the last 10 days. Etiology unclear,possibly embolic. Coumadin Involuntary spasticity, jerking of right lower extremity, rule out seizure. EEG reporting no epileptiform activity. Parvus tardus waveforms of the right carotid system suggesting distal stenosis, CTA Angio chest/neck reported [id number] 60-70% proximal right internal carotid artery stenosis with no surgical intervention recommended at this time per vascular surgery. Further follow-up outpatient with vascular surgery for further monitoring. Nonsustained run of V. tach Hypoglycemia, resolved Dehydration secondary to poor water intake CAD, history of stent Alcohol abuse, drinks wine daily Nicotine dependence History of partial colectomy Moderate protein calorie malnutrition, secondary to poor diet intake, BMI 19.9 COPD, stable History of diverticulitis Plan: Continue on current medication regime ,monitoring and symptomatic treatment. Echo report pending/possible JOURDAN .Tylenol for headache. Smoking and alcohol cessation reinforced. Continue on statin, aspirin, PPI and CIWA protocol. Lexapro initiated -patient expressing depression over his current healthcare status. Discharge planning in progress for tomorrow (INPT rehab vs [facility]) pending clearance/DC recommendations from all consults. The impression and plan of care has been dictated as directed. : I performed a history and examination of this patient, discussed the same with the dictator. I agree with the dictator's note ,documented as a scribe. Any additional findings or plans will be noted.
[2021-08-12 15:52] LABS: Glucose,Whole Blood 126 mg/dL (75-99)
[2021-08-12 16:37] LABS: Glucose,Whole Blood 187 mg/dL (75-99)
[2021-08-12] MEDS: BUTALB/APAP/CAFF 50-325-40MG TAB PO PRN (18:28)
[2021-08-12 20:33] LABS: Glucose,Whole Blood 125 mg/dL (75-99)
[2021-08-12] MEDS: ATORVASTATIN 10 MG TAB PO SCH (21:19)
[2021-08-13] MEDS: BUTALB/APAP/CAFF 50-325-40MG TAB PO PRN ×3 (01:15→16:56)
[2021-08-13] MEDS: HYDROcodone/APAP 5-325MG 1 EACH TAB PO PRN ×4 (03:33→23:48)
[2021-08-13 06:11] LABS: Glucose,Whole Blood 118 mg/dL (75-99)
--- NOTE | 2021-08-13 06:12 | P.CONS ---
History of Present Illness - Chief Complaint Walking difficulty with history of frequent falls - History of Present Illness I had the opportunity to see patient for inpatient rehab consultation with regard to walking difficulty. Patient omitted to [facility] August 07 Dr. Lee for the above and note dehydration. History of right arm and leg weakness. Multiple studies done. Seen by neurology, Dr. Slade Martínez who diagnosed left frontal parietal infarct which was noted on head CT and brain MRI. Brain MRI also demonstrated right side multiple lacunar infarcts. Seen by orthopedics and note cervical and lumbar spondylosis. In fact C-spine with DDD C3-[address] with [address]. Thoracic CT with kyphosis, mild DDD and grade 1 retrolisthesis C6 and grade [address] antral listhesis C7. Lumbar CT with DDD L2, 5 with central L2 and right L4 stenosis. Seen by Dr. Musa for vascular. Seen by cardiology for known cardiac disease with history of stent. Other workup includes chest CTA demonstrates left basilar effusion and bilateral infiltrate. Carotid Doppler done. Right knee x-ray with osteopenia. Right hip and pelvic x-raywith HL distal third of right femur and bilateral hip arthritis. Right shoulder x-ray with sclerosis. Right clavicle x-ray with chronic fracture.right humerus x-ray negative. Right forearm x-ray with elbow effusion. Right hand x-ray with arthritis. Has started therapy. PT reports moderate assistance bed mobility and two-person assistance for transfer. Unable take s teps. Standing balance poor. OT reports maximal assistance for upper dressing and total assistance for lower dressing, bathing, toileting. Her pre-for communication and cognition. Previous functional history as elicited from patient: Stated he was 76 is actually 75-year-old left-handed white male who is single lives in one floor home alone. Brother apparently lives nearby and they may share the driving. Patient otherwise independent with own cooking, laundry, standing shower and gait with occasional need standard cane. PCP Dr. Thurston. Admits to occasional tobacco. Admits to 4-5 drinks per week. Review of Systems Review of systems: ENT: Denies sneezes or discharge. Eyes: Denies discharge or photophobia. Cardiac: Denies chest pain or palpitation. Pulmonary: Denies cough or shortness of breath. Gastrointestinal: Denies nausea, emesis, constipation, diarrhea. Genitourinary: Denies discharge or frequency. Musculoskeletal: Denies muscle or bone aches. Neurologic: general weakness and balance issues. Some mental confusion. Endocrine: Denies shakes or sweats. Oncology: Denies cancers. Dermatologic: Denies rash, itching, pruritus. ALLERGY/immunology: Denies sneezes, rashes. Past Medical History Past Medical History: Coronary Artery Disease (CAD), Cancer, Chest Pain / Angina, Hypertension, Rheumatoid Arthritis (RA) Additional Past Medical History / Comment(s): SKIN CANCER. DIVERTICULITIS History of Any Multi-Drug Resistant Organisms: None Reported Past Surgical History: Cholecystectomy Additional Past Surgical History / Comment(s): RETINOL DETACHMENT REPAIR (6 ON LEFT, 1 ON RIGHT). TESTICLE REMOVED Past Anesthesia/Blood Transfusion Reactions: No Reported Reaction, Motion Sick ness Date of Last Stent Placement:: UNKNOWN DATE 2009 Past Psychological History: No Psychological Hx Reported Smoking Status: Current some day smoker Past Alcohol Use History: Daily Past Drug Use History: None Reported - Past Family History Daughter(s) Family Medical History: Cancer Medications and Allergies Home Medications Medication Instructions Recorded Confirmed Type Omeprazole 20 mg PO QAM 07/20/21 08/07/21 History Allergies Allergy/AdvReac Type Severity Reaction Status Date / Time venom-honey bee Allergy Anaphylaxis Verified 08/07/21 11:29 [bee venom (honey bee)] Physical Exam Vitals: Vital Signs Temp Pulse Resp BP Pulse Ox 08/13/21 03:30 98.2 F 72 18 152/94 97 08/12/21 23:45 67 18 131/89 97 08/12/21 20:45 98.5 F 79 20 153/90 97 08/12/21 16:00 92 18 124/81 98 08/12/21 14:00 18 08/12/21 08:00 97.5 F L 88 18 128/76 95 Intake and Output 08/12/21 08/12/21 08/13/21 14:59 22:59 06:59 Intake Total 118 Output Total 225 Balance 118 -225 Intake: Oral 118 Output: Urine 225 Other: Voiding Method External Catheter External Catheter External Catheter Skin: Good color, texture, turgor. General: Medium build and comfortable appearance. Head: Normocephalic, atraumatic. Eyes: Symmetric. Pupils equal round. Ears: Symmetric. Hearing within normal limits. Mouth: Clear. Neck: Supple. Carotid without bruit. Cardiac: Regular rate and rhythm. Lungs: Clear anteriorly and posteriorly. Abdomen: Soft active nontender. Extremities: Normal tone. Neurological: Mental status: Alert, cooperative, generally accurate historian. Cranial nerves: Symmetric facial tone and trapezius. Motor: active movement all 4 limbs about antigravity in arms and less than antigravity in legs. Sensation: Intact throughout. DTRs: Symmetric and equal throughout. Mobility: requires physical assist for bed mobility. Results CBC & Chem 7: 08/11/21 11:46 08/11/21 11:46 Labs: Abnormal Lab Results - Last 24 Hours (Table) 08/12/21 08/12/21 08/12/21 Range/Units 05:57 11:43 15:49 POC Glucose (mg/dL) 165 H 150 H 126 H (75-99) mg/dL 08/12/21 08/12/21 Range/Units 16:34 20:30 POC Glucose (mg/dL) 187 H 125 H (75-99) mg/dL Microbiology - Last 24 Hours (Table) 08/07/21 11:00 Blood Culture - Preliminary Blood No Growth after 120 hours 08/07/21 10:45 Blood Culture - Preliminary Blood No Growth after 120 hours Assessment and Plan (1) CVA (cerebral vascular accident) Current Visit: Yes Status: Acute Code(s): I63.9 - CEREBRAL INFARCTION, UNSPECIFIED SNOMED Code(s): 500036703 (2) Dehydration Current Visit: Yes Status: Acute Code(s): E86.0 - DEHYDRATION SNOMED Code(s): 20661475 (3) Fall Current Visit: Yes Status: Acute Code(s): W19.XXXA - UNSPECIFIED FALL, IN ITIAL ENCOUNTER SNOMED Code(s): 1803182 (4) COPD (chronic obstructive pulmonary disease) Current Visit: No Status: Acute Code(s): J44.9 - CHRONIC OBSTRUCTIVE PULMONARY DISEASE, UNSPECIFIED SNOMED Code(s): 70292001 (5) Concussion Current Visit: No Status: Acute Code(s): S06.0X9A - CONCUSSION W LOSS OF CONSCIOUSNESS OF UNSP DURATION, INIT SNOMED Code(s): 242874935 Plan: comments and plan: Diagnoses should also include DDD of cervical, thoracic, lumbar spine and of course the stroke with right hemiparesthesias. This appears to be recurrent stroke. Patient is started therapies but currently with endurance issues and will not be ready for full inpatient rehab. Would require a slow paced program at this time.
[2021-08-13] MEDS: PANTOPRAZOLE 40 MG TABLET PO SCH (06:27)
[2021-08-13] MEDS: DEXAMETHASONE SOD PHOSPHATE 4 MG/ML 1 ML VIAL IVP SCH ×4 (06:27→23:47)
[2021-08-13] MEDS: THIAMINE 100 MG TAB PO SCH ×3 (06:28→16:57)
--- NOTE | 2021-08-13 08:39 | P.PN ---
Subjective Progress Note Date: 08/12/21 08/12/2021: Patient had an episode of unresponsiveness that lasted for 3 minutes. He was noted to be drooling, bubbling. A-team was called, but patient within a couple minutes came out of it. His telemetry monitoring and vitals were stable at that time. At present his telemetry is showing sinus rhythm in the 80s with some PVCs. Patient at present complains of headaches. Patient's was present physically and daughter was on the cell phone on the speaker phone at this time. Apparently patient has history of 2 or 3 concussions due to falls in the past and the last time was 3-4 weeks ago when he fell. He has been having headaches since then. With one of the fall, he woke up on the floor, and called 911. Patient appears to have slightly slurred speech today. He is taking more slowly. 08/11/2021: The patient is 75-year-old male who is seen in neurologic follow-up. The chart is reviewed. The patient reportedly came into the emergency department with complaints of frequent falling and reports that his right leg is "useless". Patient states that 1 month ago he awoke in the morning and found that he was unable to use his right hand. He says he did seek the care of his primary care physician. More recently, the patient has been having difficulty with balance walking and lower extremity strength. In addition, the patient reports having difficulty getting his words out. CT scan of the brain, performed in the emergency department revealed evidence of a subacute infarct involving the left frontoparietal junction. Patient at present complains of pressure headache, as if someone is pushing down. It is not squeezing headache. At present it is 8 on a scale of 1-10. Patient has smoked since age 25-32 years. He has smoked slightly less than one pack per day all these years. Objective - Vital Signs Vital signs: Vital Signs Temp 97.5 F L 08/12/21 08:00 Pulse 88 08/12/21 08:00 Resp 18 08/12/21 08:00 BP 128/76 08/12/21 08:00 Pulse Ox 95 08/12/21 08:00 Intake & Output 08/11/21 08/12/21 08/12/21 18:59 06:59 18:59 Intake Total 238 50 118 Output Total 75 225 Balance 238 -25 -107 Weight 62 kg Intake: Oral 238 50 118 Output: Urine 75 225 Other: Voiding Method External Catheter External Catheter External Catheter # Voids 1 - Exam GENERAL: The patient is lying in bed and is not in acute distress. Patient has slow mentation, prolonged latency to answer questions. NEUROLOGICAL: Higher mental function: The patient is awake, alert. No aphasia. Patient may be slightly dysarthric., And speaking somewhat slowly. Cranial nerves: The pupils are round, equal and reactive to light. Visual dominguez are full to confrontation throughout, with no neglect on double simultaneous stimulation. Extraocular movement is intact no nystagmus is noted. Facial sensation is normal to touch throughout. The facial strength is normal. Hearing is decreased bilaterally. Tongue is midline and moved [id number] without any difficulty. Motor: Gait is deferred because of his weakness. Muscle strength (right/left biceps 4-/5, triceps 4-/5, fruit dumper 3/5, hip flexion 3+4/4+5-, ankle dorsiflexion 5/5 Cerebellum: Ataxic for [id number] testing on the right.. Sensation: Has decreased sensation to touch over the right upper extremity compared to left. In the lower extremities he was feeling better in the left lower extremity as compared to the right lower extremity. Reflexes (right/left): 1+ throughout. Plantars are hypersensitive bilaterally. WORK-UP: Lipid panel is triglyceride of 91, cholesterol 145, LDL 64 and HDL of 62. Hemoglobin A1c is 5.5. Vitamin B12 is 533 Serum folate is 10.40. TSH is 0.995 CT of the head is reported as findings this is involving, new subacute infarcts appear left frontal parietal junction greater than 6 hours in duration. Associate cortical subcortical hypodensity and sulcal effacement but no midline shift or acute intracranial hemorrhage. I personally reviewed the CT of the head and I agreed the patient does have at least subacute left frontal parietal stroke. CT cervical spine was reported as no evidence of acute traumatic Gaviria injury of the cervical spine. Degenerative changes of the cervical spine CT lumbar spine is reported as no vertebral compression collapse or malalignme nt. Mild to moderate multilevel degenerative disc disease. Mild to moderate neuroforaminal narrowing at L4-L5. Carotid duplex is reported as parvus tardus waveform of the right visualized carotid system suggesting distal stenosis of the internal carotid artery. No evidence of significant stenosis in the left carotid system. - Labs CBC & Chem 7: 08/11/21 11:46 08/11/21 11:46 Labs: Abnormal Lab Results - Last 24 Hours (Table) 08/11/21 08/12/21 08/12/21 Range/Units 20:30 05:57 11:43 POC Glucose (mg/dL) 137 H 165 H 150 H (75-99) mg/dL 08/12/21 08/12/21 Range/Units 15:49 16:34 POC Glucose (mg/dL) 126 H 187 H (75-99) mg/dL Microbiology - Last 24 Hours (Table) 08/07/21 11:00 Blood Culture - Preliminary Blood No Growth after 120 hours 08/07/21 10:45 Blood Culture - Preliminary Blood No Growth after 120 hours Assessment and Plan Assessment: Subacute ischemic stroke over the left frontoparietal (on examination has weakness on right upper and lower extremity and decrease sensation over the right with appears sensory neglect over the right). Unknown cause of stroke but seems embolic Cephalgia, likely due to postconcussive headache. He has history of 2 or 3 concussions in the past, the last one was 3 weeks ago. Repeated episodes of jerking of extremities for the past one week. Probably athetoid movement. Seizure very unlikely. Hypoglycemia (as low as 70, once, while in the hospital). History of CAD s/p stent Significant alcohol use Tobacco use (smokes <1PPD for years) Plan: * Patient states he used to take aspirin but has stopped taking aspirin "for months". We will place patient on dual antiplatelet medication for 21 days. Then stop Plavix and continue aspirin indefinitely. * Patient complains of severe headache, likely postconcussive. We will try Fio ricet as needed. * Brain MRI revealed acute to subacute large area of infarct posterior left parietal lobe with additional areas in the lateral left parietal lobe and frontal left parietal lobe. Acute to subacute punctate multiple areas of infarct in the white matter of the right parietal lobe. Consider embolic phenomenon. These ischemic strokes are embolic, most likely cardiac source. Cardiology has seen patient today for nonsustained V. tach. Recommend JOURDAN for further evaluation. * CTA of the neck showed moderate to severe approximately 60-70% proximal right ICA stenosis secondary to calcified plaque of the right carotid bifurcation. Mild left internal carotid artery stenosis secondary to moderate calcified plaque at the carotid bifurcation. Vascular surgery Dr. Burgos has seen the patient, not recommending any intervention at this time. * Continue low dose of Lipitor 10 mg daily at bedtime for secondary stroke prophylaxis patient stated that he was on Lipitor in the past but did not like the feeling of the medication. If the patient has any side effects from Lipitor we'll stop it. * Carotid duplex is reported as parvus tardus waveform of the right visualized carotid system suggesting distal stenosis of the internal carotid artery. No evidence of significant stenosis in the left carotid system. * Await 2-D echo. Report still pending at the time of this dictation. Recommend JOURDAN tomorrow. Discussed with primary team. * EEG revealed no epileptiform activity. * Continue neuro checks * PT OT and HAT CUTTER are consulted * Continue thiamine 100 mg daily. * Will defer the rest of medical management to the primary team. * For DVT prophylaxis Continue subcu heparin 5000 every 12 hours
[2021-08-13] MEDS: CLOPIDOGREL 75 MG TAB PO SCH (09:14)
[2021-08-13] MEDS: METOPROLOL SUCCINATE (ER) 25 MG TAB.ER.24H PO SCH (09:14)
[2021-08-13] MEDS: ASPIRIN 81 MG PO SCH (09:15)
[2021-08-13] MEDS: HEPARIN SODIUM,PORCINE/PF 5,000 UNIT/0.5 ML SYRINGE SQ SCH ×2 (09:15→21:16)
[2021-08-13] MEDS: ESCITALOPRAM 5 MG TAB PO SCH (09:15)
[2021-08-13] MEDS: LOSARTAN 25 MG TAB PO SCH (09:15)
--- NOTE | 2021-08-13 10:14 | P.PN ---
Subjective Progress Note Date: 08/13/21 HISTORY OF PRESENT ILLNESS: This is a 75-year-old male with a past medical history significant for coronary artery disease with previous stenting, TIA, tobacco abuse, vertigo, falls, and neuropathy. Patient follows in the office with Dr. Bender and was last seen in April 2020. We have been asked to see the patient in consultation for nonsustained ventricular tachycardia. Patient examined at the bedside. The patient presented to the emergency room after being found on the floor by his family member who called EMS. The patient underwent MRI of the brain on 08/11/2021 revealing acute to subacute large area of infarct posterior left parietal lobe with additional areas in the lateral left parietal lobe and frontal left parietal lobe. Acute to subacute punctate multiple areas of infarct in the white matter of the right parietal lobe. Consider embolic phenomenon. The patient was noted to have a 14 beat run of nonsustained ventricular tachycardia. The patient denies any chest pain or pressure. He denies any shortness of breath. He denies any dizziness or lightheadedness at the time of examination. He denies any palpitations. 2D echo was obtained and reviewed by Dr. Bender. However, due to IT issues this was not transferred to the EMR system appropriately. * EKG reveals sinus mechanism with no signs of acute ischemia * Chest xray chronic changes. No definite acute process. * Carotid Doppler: Parvus tardus waveforms of the right visualized carotid syst em suggesting distal stenosis of the internal carotid artery. No evidence of significant stenosis of the left carotid system * CTA neck: Moderate to severe, approximately 60-70% proximal right internal carotid artery stenosis secondary to calcified plaque of the right carotid bifurcation. Mild left internal carotid artery stenosis secondary to moderate calcified plaque at the left carotid bifurcation. * Brain CT reports findings suggesting developing, now subacute infarct superior left frontoparietal junction greater than 6 hours in duration. Associated cortical and subcortical hypodensity and sulcal effacement but no midline shift or acute intracranial hemorrhage. Findings are new from 07/20/2021 * Laboratory data: * Current home cardiac medications include none * Cardiac catheterization history: April 2020 revealing 85% proximal LAD stenosis with some involvement of the diagonal branch. PCI of the proximal LAD with Anja plus to the diagonal branch secondary to some jailing of donna gonal was performed. 08/13/2021 Patient examined this morning at the bedside. Patient denies chest pain or pressure. He denies shortness of breath. He reports a significant headache this morning. Telemetry reveals sinus mechanism with no significant arrhythmias. Blood pressure is slightly on the higher side with systolic in the 150s. PHYSICAL EXAM: VITAL SIGNS: Reviewed. GENERAL: Well-developed in no acute distress. HEENT: Head is normocephalic. Pupils are equal, round. Sclerae anicteric. Mucous membranes of the mouth are moist. Neck supple. No JVD or thyromegaly LUNGS: Respirations even and unlabored. Lungs diminished to auscultation bilater ally. HEART: Regular rate and rhythm. S1 and S2 heard. ABDOMEN: Soft. Nondistended. Nontender. EXTREMITIES: Normal range of motion. No clubbing or cyanosis. Peripheral pulses intact. No lower extremity edema NEUROLOGIC: Awake and alert. ASSESSMENT: Acute to subacute large area of infarct posterior left parietal lobe, per MRI Nonsustained ventricular tachycardia Coronary artery disease with previous PCI History of TIA History of vertigo History of frequent falls and neuropathy History of nicotine dependence Hypomagnesemia, improved PLAN: Continue current cardiac medications Continue metoprolol succinate 25 mg daily Add losartan 25 mg daily for optimal blood pressure control Continue to monitor electrolytes and supplement as needed Continue telemetry monitoring Nothing by mouth at midnight Patient to undergo JOURDAN tomorrow with Dr. Bender Further recommendations pending patient's course Nurse practitioner note has been reviewed by physician. Signing provider agrees with the documented findings, assessment, and plan of care. Objective - Vital Signs Vital signs: Vital Signs Temp 98.0 F 08/13/21 08:00 Pulse 80 08/13/21 08:00 Resp 18 08/13/21 08:00 BP 146/85 08/13/21 08:00 Pulse Ox 96 08/13/21 08:00 Intake & Output 08/12/21 08/13/21 08/13/21 18:59 06:59 18:59 Intake Total 118 Output Total 225 150 Balance -107 -150 Intake: Oral 118 Output: Urine 225 150 Other: Voiding Method External Catheter External Catheter External Catheter - Labs CBC & Chem 7: 08/11/21 11:46 08/11/21 11:46 Labs: Abnormal Lab Results - Last 24 Hours (Table) 08/12/21 08/12/21 08/12/21 Range/Units 11:43 15:49 16:34 POC Glucose (mg/dL) 150 H 126 H 187 H (75-99) mg/dL 08/12/21 08/13/21 Range/Units 20:30 05:48 POC Glucose (mg/dL) 125 H 118 H (75-99) mg/dL Microbiology - Last 24 Hours (Table) 08/07/21 11:00 Blood Culture - Preliminary Blood No Growth after 120 hours 08/07/21 10:45 Blood Culture - Preliminary Blood No Growth after 120 hours
[2021-08-13 11:49] LABS: Glucose,Whole Blood 166 mg/dL (75-99)
--- NOTE | 2021-08-13 14:27 | P.PN ---
Subjective Progress Note Date: 08/13/21 H&P Date: 08/08/21 Chief Complaint: Reported fall 10 days ago, increased weakness with right lower extremity sp. Left parietal CVA This is a 75-year-old gentleman with past medical history of CAD, hypertension, hyperlipidemia, nicotine and alcohol abuse, recent cardiac catheterization, April 2020 with 85% proximal to mid LAD involving diagonal 1, successful PCI of proximal to mid LAD with angioplasty of diagonal 1 and LAD, mild to moderate disease elsewhere including 50% and mid LAD and 30-40% proximal RCA-recommending maximizing medical treatment of proximal RCA and mid LAD, presented to the ER with recent multiple falls occurring about once a day with worsening weakness and spasticity in the right lower extremity. Reports he has not been sleeping well and has probably not slept for the last 3 days. Patient was initially scheduled yesterday for outpatient colonoscopy. Patient's brother arrived to take to appointment, and patient was discovered sitting in feces, unable to move himself out of the bed. Multiple radiology studies performed of the spine, extremities. Brain CT reported evolving now subacute infarct superior left fron toparietal junction greater than 6 hours in duration. Associated cortical and subcortical hypodensity and sulcal effacement but no midline shift or acute intracranial hemorrhage. Findings are new from 07/20/2021. Evaluated by both neurology and vascular surgery with recommendations noted and appreciated. 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 Hypoglycemic this morning with blood sugar of 70, repeat pending. Progress Note Date: 08/10/21 Principal diagnosis: Left parietal CVA Patient fell approximately 10 days ago no evidence of epidural hematoma noted, patient developed evidence of subacute ischemic stroke left frontal parietal, patient has had a mild right-sided weakness for the past week initially began with a lower extreme progressive upper extreme Patient's known history of alcohol abuse as well as his past history of diverticular disease with subtotal colon resection approximately 6 years ago, patient has evidence of malnutrition mild dumping syndrome when encouraged with oral intake his nutritional state improves he's been recommended to take multiple vitamins when he remembers and to drink water when he remembers ,has demonstrated lack of interest in good nutritional intake because he gets exhausted, and he just doesn't eat he smokes cigarettes and drinks wine. 08/11/2021 complaints of frontal pressure headache. Aphasic. Evaluated by speech therapy with recommendations noted and appreciated. Earlier this morning at around 09 10, developed a 14 beat run of nonsustained V. tach. Magnesium/labs pending. Denies chest pain, palpitations or shortness of breath. PT/OT recommending subacute rehab at discharge. 08/12/21 magnesium 1.4 yesterday, supplemented, currently 2.1 .telemetry sinus rhythm, evaluated by cardiology recommendations noted. Echo completed, pending. Evaluated by PT, reporting patient is impulsive, involuntary movements, stood at bedside, aphasic, possibly would be a candidate for inpatient rehab.-requesting further evaluation. Complains of head pressure now anteriorly located. Brain MRI reported acute distress subacute large area of infarct posterior left parietal lobe with additional areas in the lateral left parietal lobe and frontal left parietal lobe, acute to subacute acute punctate multiple areas of infarct in the white matter of the right parietal lobe, consider embolic phenomenon. 08/13/2021: Echo Reported moderate concentric left ventricular hypertrophy EF 60-65%.Evaluated by cardiology, scheduled for JOURDAN tomorrow. Evaluated by Dr. Moran, patient is not a candidate for inpatient rehab. Objective - Vital Signs Vital signs: Vital Signs Temp 98.0 F 08/13/21 08:00 Pulse 80 08/13/21 08:00 Resp 18 08/13/21 08:00 BP 146/85 08/13/21 08:00 Pulse Ox 96 08/13/21 08:00 Intake & Output 08/12/21 08/13/21 08/13/21 18:59 06:59 18:59 Intake Total 118 240 Output Total 225 150 Balance -107 -150 240 Intake: Oral 118 240 Output: Urine 225 150 Other: Voiding Method External Catheter External Catheter External Catheter - Exam General: [Cachectic, alert and oriented 2, sitting up in bed, no acute distress, aphasic HEENT: [Normocephalic, atraumatic ,PERRL. EOMI.] Neck: Supple, no JVD Cardiac: [Heart regular in rate and rhythm. No S3. No S4. No clicks, rubs. No murmur.] Lungs: [Clear to auscultation bilaterally.] Abdomen: [No mass. No organomegaly. Bowel sounds presnt and normoactive in all 4 quadrants.] Extremes: [No edema no cyanosis,normal pulses] Skin: Warm and dry, No rash. Neurologic: CN II - XII grossly intact . Decreased sensation over the right upper and lower extremities. Decreased strength on the right side, more so on the right upper extremity. - Labs CBC & Chem 7: 08/11/21 11:46 08/11/21 11:46 Labs: Abnormal Lab Results - Last 24 Hours (Table) 08/12/21 08/12/21 08/12/21 Range/Units 15:49 16:34 20:30 POC Glucose (mg/dL) 126 H 187 H 125 H (75-99) mg/dL 08/13/21 08/13/21 Range/Units 05:48 11:47 POC Glucose (mg/dL) 118 H 166 H (75-99) mg/dL Microbiology - Last 24 Hours (Table) 08/07/21 10:45 Blood Culture - Final Blood No Growth after 144 hours 08/07/21 11:00 Blood Culture - Final Blood No Growth after 144 hours Assessment and Plan Assessment: Subacute ischemic stroke involving left frontoparietal region, recent multiple falls daily over the last 10 days. Etiology unclear,possibly embolic. Involuntary spasticity, jerking of right lower extremity, seizures unlikely- EEG reporting no epileptiform activity. Cephalgia, suspect postconcussive as per neurology. Parvus tardus waveforms of the right carotid system suggesting distal stenosis, CTA Angio chest/neck reported [id number] 60-70% proximal right internal carotid artery stenosis with no surgical intervention recommended at this time per vascular surgery. Further follow-up outpatient with vascular surgery for further monitoring. Nonsustained run of V. tach Hypoglycemia, resolved Dehydration secondary to poor water intake CAD, history of stent Alcohol abuse, drinks wine daily Nicotine dependence History of partial colectomy Moderate protein calorie malnutrition, secondary to poor diet intake, BMI 19.9 Degenerative disc disease COPD, stable History of diverticulitis Plan: Continue on current medication regime ,monitoring and symptomatic t reatment. JOURDAN tomorrow .Smoking and alcohol cessation reinforced. Maintain statin, aspirin, PPI ,CIWA protocol, Lexapro. Discharge planning in progress for tomorrow to subacute rehab., pending JOURDAN, clearance/DC recommendations from all consults. The impression and plan of care has been dictated as directed. : I performed a history and examination of this patient, discussed the same with the dictator. I agree with the dictator's note ,documented as a scribe. Any additional findings or plans will be noted.
--- NOTE | 2021-08-13 15:43 | CA ---
Transthoracic Echo Report Name: Cornel Miranda Age: 75 Gender: M : 1945 Exam Date: 08/07/2021 14:17 Exam Location: [facility] Ht (in): 68 Wt (lb): 123 Ordering Physician: Slade Martínez MD Attending/Referring Phys: [employer] Senior Associate Lolita Rose RDCS Procedure CPT: Indications: stroke Cardiac Hx: Technical Quality: Fair Contrast 1: Total Dose (mL): Contrast 2: Total Dose (mL): MEASUREMENTS (Male / Female) Normal Values 2D ECHO LV Diastolic Diameter PLAX 3.3 cm 4.2 - 5.9 / 3.9 - 5.3 cm LV Systolic Diameter PLAX 2.7 cm IVS Diastolic Thickness 1.5 cm 0.6 - 1.0 / 0.6 - 0.9 cm LVPW Diastolic Thickness 1.2 cm 0.6 - 1.0 / 0.6 - 0.9 cm LV Relative Wall Thickness 0.8 RV Internal Dim ED PLAX 3.3 cm LA Systolic Diameter LX 3.3 cm 3.0 - 4.0 / 2.7 - 3.8 cm M-MODE Aortic Root Diameter MM 3.1 cm MV E Point Septal Separation 0.7 cm AV Cusp Separation MM 1.7 cm DOPPLER AV Peak Velocity 90.9 cm/s AV Peak Gradient 3.3 mmHg MV Area PHT 6.6 cm??? Mitral E Point Velocity 53.0 cm/s Mitral A Point Velocity 61.8 cm/s Mitral E to A Ratio 0.9 MV Deceleration Time 114.5 ms MV E' Velocity 7.2 cm/s Mitral E to MV E' Ratio 7.4 TR Peak Velocity 228.7 cm/s TR Peak Gradient 20.9 mmHg Right Ventricular Systolic Press 25.6 mmHg FINDINGS Left Ventricle Left ventricular ejection fraction is estimated at 60-65%. Left ventricular cavity size normal. Moderate concentric left ventricular hypertrophy. Right Ventricle Mild right ventricular dilatation. Right ventricular systolic pressure within normal limits. Right Atrium Normal right atrial size. Left Atrium Normal left atrial size. No evidence for an atrial septal defect. Mitral Valve Mitral valve thickened. Mitral annular calcification. Mild mitral regurgitation. Aortic Valve Focal thickening of the aortic valve cusps. Tricuspid Valve Mild tricuspid regurgitation. Pulmonic Valve Pulmonic valve not well visualized. Pericardium No pericardial effusion. Aorta Normal size aortic root and proximal ascending aorta. CONCLUSIONS Left ventricular ejection fraction is estimated at 60-65%. Moderate concentric left ventricular hypertrophy. Mild mitral regurgitation. Mild tricuspid regurgitation. Previewed by: Dr. Yosef Bender DO (Electronically Signed) Final Date: 08 Aug 2021 11:44
[2021-08-13 16:46] LABS: Glucose,Whole Blood 125 mg/dL (75-99)
[2021-08-13 20:47] LABS: Glucose,Whole Blood 127 mg/dL (75-99)
[2021-08-13] MEDS: ATORVASTATIN 10 MG TAB PO SCH (21:16)
[2021-08-14] MEDS: PANTOPRAZOLE 40 MG TABLET PO SCH (06:18)
[2021-08-14 06:19] LABS: Glucose,Whole Blood 90 mg/dL (75-99)
[2021-08-14] MEDS: THIAMINE 100 MG TAB PO SCH ×3 (06:19→17:15)
[2021-08-14] MEDS: DEXAMETHASONE SOD PHOSPHATE 4 MG/ML 1 ML VIAL IVP SCH ×4 (06:39→23:34)
[2021-08-14 08:01] LABS: Basophils % (A) 0 %; Eosinophils # (A) 0.1 k/uL (0-0.7); Eosinophils % (A) 1 %; HCT 42.9 % (39.0-53.0); HGB 13.9 gm/dL (13.0-17.5); Lymphocytes % (A) 9 %; MCH 33.4 pg (25.0-35.0); MCHC 32.5 g/dL (31.0-37.0); MCV 102.8 fL (80.0-100.0); Macrocytosis Slight; Mean Platelet Volume 8.5; Monocytes # (A) 0.7 k/uL (0-1.0); Monocytes % (A) 6 %; Neutrophils % (A) 83 %; Platelet Count 252 k/uL (150-450); RBC 4.18 m/uL (4.30-5.90); RDW 13.7 % (11.5-15.5); WBC 10.9 k/uL (3.8-10.6)
[2021-08-14 08:10] LABS: African American GFR (CKD) >90 (>60 ml/min/1.73 sqM); Anion Gap 0 mmol/L; Blood Urea Nitrogen 20 mg/dL (9-20); Calcium 6.6 mg/dL (8.4-10.2); Carbon Dioxide 23 mmol/L (22-30); Chloride 111 mmol/L (98-107); Glucose 82 mg/dL (74-99); Non-African American GFR(CKD) >90 (>60 ml/min/1.73 sqM); Potassium 3.8 mmol/L (3.5-5.1); Sodium 134 mmol/L (137-145)
[2021-08-14] MEDS ORDERED: IV FLUID CONTINUATION 900 ML IV ONE (09:50)
[2021-08-14] MEDS ORDERED: fentaNYL (PF) 50 MCG/ML 2 ML AMP ONE (09:53)
[2021-08-14] MEDS ORDERED: BENZOCAINE SPRAY 1 CAN TOPICAL ONE (10:01)
[2021-08-14] MEDS ORDERED: MIDAZOLAM 2 MG/2 ML VIAL IV ONE ×2 (10:04→10:05)
[2021-08-14] MEDS ORDERED: fentaNYL (PF) 50 MCG/ML 2 ML AMP IV ONE (10:04)
--- NOTE | 2021-08-14 10:33 | P.PN ---
Subjective Progress Note Date: 08/13/21 08/13/2021: Patient was seen for a follow-up. Patient's daughter and son were present today. Patient continues to have some slow, slurred speech. No new focal symptoms. No further syncopal spells. Patient states Fioricet and [place] both are helping. The headache has improved. Patient's children have noticed that he often gets paranoid, delirious, also jumped out of bed. This is likely delirium from steroids. 08/12/2021: Patient had an episode of unresponsiveness that lasted for 3 minutes. He was noted to be drooling, bubbling. A-team was called, but patient within a couple minutes came out of it. His telemetry monitoring and vitals were stable at that time. At present his telemetry is showing sinus rhythm in the 80s with some PVCs. Patient at present complains of headaches. Patient's was present physically and daughter was on the cell phone on the speaker phone at this time. Apparently patient has history of 2 or 3 concussions due to falls in the past and the last time was 3-4 weeks ago when he fell. He has been having headaches since then. With one of the fall, he woke up on the floor, and called 911. Patient appears to have slightly slurred speech today. He is taking more slowly. 08/11/2021: The patient is 75-year-old male who is seen in neurologic follow-up. The chart is reviewed. The patient reportedly came into the emergency department with complaints of frequent falling and reports that his right leg is "useless". Patient states that 1 month ago he awoke in the morning and found that he was unable to use his right hand. He says he did seek the care of his primary care physician. More recently, the patient has been having difficulty with balance walking and lower extremity strength. In addition, the patient reports having difficulty getting his words out. CT scan of the brain, performed in the emergency department revealed evidence of a subacute infarct involving the left frontoparietal junction. Patient at present complains of pressure headache, as if someone is pushing down . It is not squeezing headache. At present it is 8 on a scale of 1-10. Patient has smoked since age 25-32 years. He has smoked slightly less than one pack per day all these years. Objective - Vital Signs Vital signs: Vital Signs Temp 98.0 F 08/13/21 08:00 Pulse 83 08/13/21 12:00 Resp 18 08/13/21 14:00 BP 128/82 08/13/21 12:00 Pulse Ox 96 08/13/21 12:00 Intake & Output 08/12/21 08/13/21 08/13/21 18:59 06:59 18:59 Intake Total 118 240 Output Total 225 150 Balance -107 -150 240 Intake: Oral 118 240 Output: Urine 225 150 Other: Voiding Method External Catheter External Catheter External Catheter - Exam GENERAL: The patient is lying in bed and is not in acute distress. Patient has slow mentation, prolonged latency to answer questions. NEUROLOGICAL: Higher mental function: The patient is awake, alert. No aphasia. Patient may be slightly dysarthric., And speaking somewhat slowly. Cranial nerves: The pupils are round, equal and reactive to light. Visual dominguez are full to confrontation throughout, with no neglect on double simultaneous stimulation. Extraocular movement is intact no nystagmus is noted. Facial sensation is normal to touch throughout. The facial strength is normal. Hearing is decreased bilaterally. Tongue is midline and moved [id number] without any difficulty. Motor: Gait is deferred because of his weakness. Muscle strength (right/left biceps 4-/5, triceps 4-/5, backend python developer 3/5, hip flexion 3+4/4+5-, ankle dorsiflexion 5/5 Cerebellum: Ataxic for [id number] testing on the right.. Sensation: Has decreased sensation to touch over the right upper extremity comp ared to left. In the lower extremities he was feeling better in the left lower extremity as compared to the right lower extremity. Reflexes (right/left): 1+ throughout. Plantars are hypersensitive bilaterally. WORK-UP: Lipid panel is triglyceride of 91, cholesterol 145, LDL 64 and HDL of 62. Hemoglobin A1c is 5.5. Vitamin B12 is 533 Serum folate is 10.40. TSH is 0.995 CT of the head is reported as findings this is involving, new subacute infarcts appear left frontal parietal junction greater than 6 hours in duration. Associate cortical subcortical hypodensity and sulcal effacement but no midline shift or acute intracranial hemorrhage. I personally reviewed the CT of the h ead and I agreed the patient does have at least subacute left frontal parietal stroke. CT cervical spine was reported as no evidence of acute traumatic Gaviria injury of the cervical spine. Degenerative changes of the cervical spine CT lumbar spine is reported as no vertebral compression collapse or malalignment. Mild to moderate multilevel degenerative disc disease. Mild to moderate neuroforaminal narrowing at L4-L5. Carotid duplex is reported as parvus tardus waveform of the right visualized carotid system suggesting distal stenosis of the internal carotid artery. No evidence of significant stenosis in the left carotid system. - Labs CBC & Chem 7: 08/14/21 07:40 08/14/21 07:40 Labs: Abnormal Lab Results - Last 24 Hours (Table) 08/12/21 08/13/21 08/13/21 Range/Units 20:30 05:48 11:47 POC Glucose (mg/dL) 125 H 118 H 166 H (75-99) mg/dL 08/13/21 Range/Units 16:19 POC Glucose (mg/dL) 125 H (75-99) mg/dL Microbiology - Last 24 Hours (Table) 08/07/21 10:45 Blood Culture - Final Blood No Growth after 144 hours 08/07/21 11:00 Blood Culture - Final Blood No Growth after 144 hours Assessment and Plan Assessment: Subacute ischemic stroke over the left frontoparietal, probably in left posterior LV territory (on examination has weakness on right upper and lower extremity and decrease sensation over the right with appears sensory neglect over the right). However MRI of the brain shows evidence of bilateral small ischemic lesions in bilateral watershed territories between LV MCA. Unknown ca use of stroke but seems embolic Cephalgia, likely due to postconcussive headache. He has history of 2 or 3 concussions in the past, the last one was 3 weeks ago. Repeated episodes of jerking of extremities for the past one week. Probably athetoid movement. Seizure very unlikely. The movement disorder resolved. Hypoglycemia (as low as 70, once, while in the hospital). History of CAD s/p stent Significant alcohol use Tobacco use (smokes <1PPD for years) Plan: * Patient states he used to take aspirin but has stopped taking aspirin "for months". We will place patient on dual antiplatelet medication for 21 days. Then stop Plavix and continue aspirin indefinitely. * 2-D echo revealed left ventricular ejection fraction 60-65%. Moderate concentric LVH. Mild MR, mild TR. * Patient undergoing JOURDAN in the morning. * Patient complains of severe headache, likely postconcussive. Headaches better with [place] and Fioricet. Patient's ESR is 4, C-reactive protein <0.5. No evidence of temporal arteritis. * Brain MRI revealed acute to subacute large area of infarct posterior left parietal lobe with additional areas in the lateral left parietal lobe and frontal left parietal lobe. Acute to subacute punctate multiple areas of infarct in the white matter of the right parietal lobe. Consider embolic phenomenon. These ischemic strokes are embolic, most likely cardiac source. Cardiology has seen patient today for nonsustained V. tach. Recommend JOURDAN for further evaluation. * CTA of the neck showed moderate to severe approximately 60-70% proximal right ICA stenosis secondary to calcified plaque of the right carotid bifurcation. Mild left internal carotid artery stenosis secondary to moderate calcified plaque at the carotid bifurcation. Vascular surgery Dr. Burgos has seen the patient, not recommending any intervention at this time. * Continue low dose of Lipitor 10 mg daily at bedtime for secondary stroke prophylaxis patient stated that he was on Lipitor in the past but did not like the feeling of the medication. If the patient has any side effects from Lipitor we'll stop it. * Carotid duplex is reported as parvus tardus waveform of the right visualized carotid system suggesting distal stenosis of the internal carotid artery. No evidence of significant stenosis in the left carotid system. * EEG revealed no epileptiform activity. * Continue neuro checks * PT OT and PLUCK SEPARATOR are consulted * Continue thiamine 100 mg daily. * Will defer the rest of medical management to the primary team. * For DVT prophylaxis Continue subcu heparin 5000 every 12 hours
[2021-08-14] MEDS: HEPARIN SODIUM,PORCINE/PF 5,000 UNIT/0.5 ML SYRINGE SQ SCH ×2 (11:06→20:14)
[2021-08-14] MEDS: LOSARTAN 25 MG TAB PO SCH (11:07)
[2021-08-14] MEDS: CLOPIDOGREL 75 MG TAB PO SCH (11:07)
[2021-08-14] MEDS: ASPIRIN 81 MG PO SCH (11:07)
[2021-08-14] MEDS: METOPROLOL SUCCINATE (ER) 25 MG TAB.ER.24H PO SCH (11:07)
[2021-08-14] MEDS: ESCITALOPRAM 5 MG TAB PO SCH (11:07)
[2021-08-14] MEDS: HYDROcodone/APAP 5-325MG 1 EACH TAB PO PRN ×3 (11:16→23:32)
[2021-08-14 11:51] LABS: Glucose,Whole Blood 124 mg/dL (75-99)
--- NOTE | 2021-08-14 12:00 | P.PN ---
Subjective Progress Note Date: 08/14/21 H&P Date: 08/08/21 Chief Complaint: Reported fall 10 days ago, increased weakness with right lower extremity sp. Left parietal CVA This is a 75-year-old gentleman with past medical history of CAD, hypertension, hyperlipidemia, nicotine and alcohol abuse, recent cardiac catheterization, April 2020 with 85% proximal to mid LAD involving diagonal 1, successful PCI of proximal to mid LAD with angioplasty of diagonal 1 and LAD, mild to moderate disease elsewhere including 50% and mid LAD and 30-40% proximal RCA-recommending maximizing medical treatment of proximal RCA and mid LAD, presented to the ER with recent multiple falls occurring about once a day with worsening weakness and spasticity in the right lower extremity. Reports he has not been sleeping well and has probably not slept for the last 3 days. Patient was initially scheduled yesterday for outpatient colonoscopy. Patient's brother arrived to take to appointment, and patient was discovered sitting in feces, unable to move himself out of the bed. Multiple radiology studies performed of the spine, extremities. Brain CT reported evolving now subacute infarct superior left fron toparietal junction greater than 6 hours in duration. Associated cortical and subcortical hypodensity and sulcal effacement but no midline shift or acute intracranial hemorrhage. Findings are new from 07/20/2021. Evaluated by both neurology and vascular surgery with recommendations noted and appreciated. 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 Hypoglycemic this morning with blood sugar of 70, repeat pending. Progress Note Date: 08/10/21 Principal diagnosis: Left parietal CVA Patient fell approximately 10 days ago no evidence of epidural hematoma noted, patient developed evidence of subacute ischemic stroke left frontal parietal, patient has had a mild right-sided weakness for the past week initially began with a lower extreme progressive upper extreme Patient's known history of alcohol abuse as well as his past history of diverticular disease with subtotal colon resection approximately 6 years ago, patient has evidence of malnutrition mild dumping syndrome when encouraged with oral intake his nutritional state improves he's been recommended to take multiple vitamins when he remembers and to drink water when he remembers ,has demonstrated lack of interest in good nutritional intake because he gets exhausted, and he just doesn't eat he smokes cigarettes and drinks wine. 08/11/2021 complaints of frontal pressure headache. Aphasic. Evaluated by speech therapy with recommendations noted and appreciated. Earlier this morning at around 09 10, developed a 14 beat run of nonsustained V. tach. Magnesium/labs pending. Denies chest pain, palpitations or shortness of breath. PT/OT recommending subacute rehab at discharge. 08/12/21 magnesium 1.4 yesterday, supplemented, currently 2.1 .telemetry sinus rhythm, evaluated by cardiology recommendations noted. Echo completed, pending. Evaluated by PT, reporting patient is impulsive, involuntary movements, stood at bedside, aphasic, possibly would be a candidate for inpatient rehab.-requesting further evaluation. Complains of head pressure now anteriorly located. Brain MRI reported acute distress subacute large area of infarct posterior left parietal lobe with additional areas in the lateral left parietal lobe and frontal left parietal lobe, acute to subacute acute punctate multiple areas of infarct in the white matter of the right parietal lobe, consider embolic phenomenon. 08/13/2021: Echo Reported moderate concentric left ventricular hypertrophy EF 60-65%.Evaluated by cardiology, scheduled for JOURDAN tomorrow. Evaluated by Dr. Moran, patient is not a candidate for inpatient rehab. 08/14/2021 just returning from JOURDAN, results pending. Mildly sedated, tolerated procedure. Denies chest pain, palpitations or increasing shortness of breath. Maintaining O2 sats in the high 90s on 2 L nasal cannula. Afebrile, WBC decreased to 10.9. Sodium 134, renal function stable. Blood sugars controlled. Objective - Vital Signs Vital signs: Vital Signs Temp 98.2 F 08/14/21 09:15 Pulse 65 08/14/21 10:49 Resp 16 08/14/21 10:49 BP 111/77 08/14/21 10:13 Pulse Ox 99 08/14/21 10:13 Intake & Output 08/13/21 08/14/21 08/14/21 18:59 06:59 18:59 Intake Total 240 100 Output Total 200 1500 Balance 40 -1500 100 Intake: IV 100 Oral 240 Output: Urine 200 1500 Other: Voiding Method External Catheter External Catheter External Catheter - Exam General: [Cachectic, alert and oriented 2, sitting in bed, no acute distress HEENT: [Normocephalic, atraumatic ,PERRL. EOMI.] Neck: Supple, no JVD Cardiac: [Heart regular in rate and rhythm. No S3. No S4. No clicks, rubs. No murmur.] Lungs: [Clear to auscultation bilaterally.] Abdomen: [No mass. No organomegaly. Bowel sounds presnt and normoactive in all 4 quadrants.] Extremes: [No edema no cyanosis,normal pulses] Skin: Warm and dry, No rash. Neurologic: Limited exam, returning from procedure, sedated. - Labs CBC & Chem 7: 08/14/21 07:40 08/14/21 07:40 Labs: Abnormal Lab Results - Last 24 Hours (Table) 08/13/21 08/13/21 08/13/21 Range/Units 11:47 16:19 20:44 WBC (3.8-10.6) k/uL RBC (4.30-5.90) m/uL MCV (80.0-100.0) fL Neutrophils # (1.3-7.7) k/uL Sodium (137-145) mmol/L Chloride (98-107) mmol/L Creatinine (0.66-1.25) mg/dL POC Glucose (mg/dL) 166 H 125 H 127 H (75-99) mg/dL Calcium (8.4-10.2) mg/dL 08/14/21 08/14/21 Range/Units 07:40 07:40 WBC 10.9 H (3.8-10.6) k/uL RBC 4.18 L (4.30-5.90) m/uL MCV 102.8 H (80.0-100.0) fL Neutrophils # 9.0 H (1.3-7.7) k/uL Sodium 134 L (137-145) mmol/L Chloride 111 H (98-107) mmol/L Creatinine 0.51 L (0.66-1.25) mg/dL POC Glucose (mg/dL) (75-99) mg/dL Calcium 6.6 L (8.4-10.2) mg/dL Microbiology - Last 24 Hours (Table) 08/07/21 10:45 Blood Culture - Final Blood No Growth after 144 hours 08/07/21 11:00 Blood Culture - Final Blood No Growth after 144 hours Assessment and Plan Assessment: Subacute ischemic stroke involving left frontoparietal region, recent multiple falls daily over the last 10 days. Etiology unclear,possibly embolic. JOURDAN completed, results pending. Involuntary spasticity, jerking of right lower extremity, seizures unlikely- EEG reporting no epileptiform activity. Cephalgia, suspect postconcussive as per neurology. Parvus tardus waveforms of the right carotid system suggesting distal stenosis, CTA Angio chest/neck reported [id number] 60-70% proximal right internal carotid artery stenosis with no surgical intervention recommended at this time per vascular surgery. Further follow-up outpatient with vascular surgery for further monitoring. Nonsustained run of V. tach Hypoglycemia, resolved Dehydration secondary to poor water intake CAD, history of stent Alcohol abuse, drinks wine daily Nicotine dependence History of partial colectomy Moderate protein calorie malnutrition, secondary to poor diet intake, BMI 19.9 Degenerative disc disease COPD, stable History of diverticulitis Plan: Continue on current medication regime ,monitoring and symptomatic treatment. JOURDAN completed, results pending. Continue statin, aspirin, PPI ,CIWA protocol, Lexapro. Discharge planning in progress for tomorrow to subacute rehab., pending JOURDAN results, clearance/DC recommendations from all consults. The impression and plan of care has been dictated as directed. : I performed a history and examination of this patient, discussed the same with the dictator. I agree with the dictator's note ,documented as a scribe. Any additional findings or plans will be noted.
[2021-08-14] MEDS: BUTALB/APAP/CAFF 50-325-40MG TAB PO PRN ×3 (14:53→23:33)
[2021-08-14 16:53] LABS: Glucose,Whole Blood 114 mg/dL (75-99)
[2021-08-14] MEDS: ATORVASTATIN 10 MG TAB PO SCH (20:14)
[2021-08-14 20:26] LABS: Glucose,Whole Blood 110 mg/dL (75-99)
[2021-08-14] MEDS ORDERED: AMITRIPTYLINE HCL 10 MG TAB PO SCH (21:00)
[2021-08-15 00:47] VITALS: RESP 16
[2021-08-15] MEDS: DEXAMETHASONE SOD PHOSPHATE 4 MG/ML 1 ML VIAL IVP SCH ×2 (04:35→13:06)
[2021-08-15] MEDS: HYDROcodone/APAP 5-325MG 1 EACH TAB PO PRN ×3 (04:35→15:11)
[2021-08-15] MEDS: BUTALB/APAP/CAFF 50-325-40MG TAB PO PRN ×3 (04:36→15:12)
[2021-08-15 06:09] LABS: Glucose,Whole Blood 106 mg/dL (75-99)
[2021-08-15] MEDS: PANTOPRAZOLE 40 MG TABLET PO SCH (06:58)
[2021-08-15] MEDS: THIAMINE 100 MG TAB PO SCH ×2 (06:58→10:02)
[2021-08-15 09:11] LABS: Basophils % (A) 0 %; Eosinophils % (A) 0 %; HCT 45.2 % (39.0-53.0); HGB 14.7 gm/dL (13.0-17.5); Lymphocytes % (A) 9 %; MCH 33.7 pg (25.0-35.0); MCHC 32.5 g/dL (31.0-37.0); MCV 103.7 fL (80.0-100.0); Macrocytosis Slight; Mean Platelet Volume 8.7; Monocytes # (A) 0.5 k/uL (0-1.0); Monocytes % (A) 5 %; Neutrophils # (A) 9.4 k/uL (1.3-7.7); Neutrophils % (A) 86 %; Platelet Count 284 k/uL (150-450); RBC 4.36 m/uL (4.30-5.90); RDW 14.4 % (11.5-15.5)
[2021-08-15 09:20] LABS: African American GFR (CKD) >90 (>60 ml/min/1.73 sqM); Anion Gap 2 mmol/L; Blood Urea Nitrogen 22 mg/dL (9-20); Calcium 7.9 mg/dL (8.4-10.2); Carbon Dioxide 25 mmol/L (22-30); Chloride 105 mmol/L (98-107); Glucose 159 mg/dL (74-99); Non-African American GFR(CKD) >90 (>60 ml/min/1.73 sqM); Potassium 4.3 mmol/L (3.5-5.1); Sodium 132 mmol/L (137-145)
--- NOTE | 2021-08-15 09:22 | P.PN ---
Subjective Progress Note Date: 08/14/21 08/14/2021: Patient was seen for a follow-up. Family members were not present. Patient complains of headaches 7.5-8/10. Asking for [place], which he feels helps. 08/13/2021: Patient was seen for a follow-up. Patient's daughter and son were present today. Patient continues to have some slow, slurred speech. No new focal symptoms. No further syncopal spells. Patient states Fioricet and [place] both are helping. The headache has improved. Patient's children have noticed that he often gets paranoid, delirious, also jumped out of bed. This is likely delirium from steroids. 08/12/2021: Patient had an episode of unresponsiveness that lasted for 3 minutes. He was noted to be drooling, bubbling. A-team was called, but patient within a couple minutes came out of it. His telemetry monitoring and vitals were stable at that time. At present his telemetry is showing sinus rhythm in the 80s with some PVCs. Patient at present complains of headaches. Patient's was present physically and daughter was on the cell phone on the speaker phone at this time. Apparently patient has history of 2 or 3 concussions due to falls in the past and the last time was 3-4 weeks ago when he fell. He has been having headaches since then. With one of the fall, he woke up on the floor, and called 911. Patient appears to have slightly slurred speech today. He is taking more slowly. 08/11/2021: The patient is 75-year-old male who is seen in neurologic follow-up. The chart is reviewed. The patient reportedly came into the emergency department with complaints of frequent falling and reports that his right leg is "useless". Patient states that 1 month ago he awoke in the morning and found that he was unable to use his right hand. He says he did seek the care of his primary care physician. More recently, the patient has been having difficulty with balance walking and lower extremity strength. In addition, the patient reports having difficulty getting his words out. CT scan of the brain, performed in the emergency department revealed evidence of a subacute infarct involving the left frontoparietal junction. Patient at present complains of pressure headache, as if someone is pushing down. It is not squeezing headache. At present it is 8 on a scale of 1-10. Patient has smoked since age 25-32 years. He has smoked slightly less than one pack per day all these years. Objective - Vital Signs Vital signs: Vital Signs Temp 98.0 F 08/14/21 17:10 Pulse 79 08/14/21 17:10 Resp 18 08/14/21 17:10 BP 144/88 08/14/21 17:10 Pulse Ox 96 08/14/21 17:10 Intake & Output 08/13/21 08/14/21 08/14/21 18:59 06:59 18:59 Intake Total 240 550 Output Total 200 1500 Balance 40 -1500 550 Intake: IV 550 .9@ 50mls/hr 450 Oral 240 Output: Urine 200 1500 Other: Voiding Method External Catheter External Catheter External Catheter - Exam GENERAL: The patient is lying in bed and is not in acute distress. Patient has slow mentation, prolonged latency to answer questions. NEUROLOGICAL: Higher mental function: The patient is awake, alert. No aphasia. Patient may be slightly dysarthric., And speaking somewhat slowly. Cranial nerves: The pupils are round, equal and reactive to light. Visual dominguez are full to confrontation throughout, with no neglect on double simultaneous stimulation. Extraocular movement is intact no nystagmus is noted. Facial sensation is normal to touch throughout. The facial strength is normal. Hearing is decreased bilaterally. Tongue is midline and moved [id number] wi thout any difficulty. Motor: Gait is deferred because of his weakness. Muscle strength (right/left) deltoid 2-3+/5, biceps 4+/5, triceps 4+/5, camp guard 3+/5, hip flexion 4-/4, ankle dorsiflexion 4-/5 Cerebellum: Ataxic for [id number] testing on the right.. Sensation: Has decreased sensation to touch over the right upper extremity compared to left. In the lower extremities he was feeling better in the left lower extremity as compared to the right lower extremity. Reflexes (right/left): 1+ throughout. Plantars are hypersensitive bilaterally. WORK-UP: Lipid panel is triglyceride of 91, cholesterol 145, LDL 64 and HDL of 62. Hemoglobin A1c is 5.5. Vitamin B12 is 533 Serum folate is 10.40. TSH is 0.995 CT of the head is reported as findings this is involving, new subacute infarcts appear left frontal parietal junction greater than 6 hours in duration. Associate cortical subcortical hypodensity and sulcal effacement but no midline shift or acute intracranial hemorrhage. I personally reviewed the CT of the head and I agreed the patient does have at least subacute left frontal parietal stroke. CT cervical spine was reported as no evidence of acute traumatic G[place]ia injury of the cervical spine. Degenerative changes of the cervical spine CT lumbar spine is reported as no vertebral compression collapse or malalignment. Mild to moderate multilevel degenerative disc disease. Mild to moderate neuroforaminal narrowing at L4-L5. Carotid duplex is reported as parvus tardus waveform of the right visualized carotid system suggesting distal stenosis of the internal carotid artery. No evidence of significant stenosis in the left carotid system. - Labs CBC & Chem 7: 08/15/21 08:43 08/14/21 07:40 Labs: Abnormal Lab Results - Last 24 Hours (Table) 08/13/21 08/14/21 08/14/21 Range/Units 20:44 07:40 07:40 WBC 10.9 H (3.8-10.6) k/uL RBC 4.18 L (4.30-5.90) m/uL MCV 102.8 H (80.0-100.0) fL Neutrophils # 9.0 H (1.3-7.7) k/uL Sodium 134 L (137-145) mmol/L Chloride 111 H (98-107) mmol/L Creatinine 0.51 L (0.66-1.25) mg/dL POC Glucose (mg/dL) 127 H (75-99) mg/dL Calcium 6.6 L (8.4-10.2) mg/dL 08/14/21 08/14/21 Range/Units 11:48 16:51 WBC (3.8-10.6) k/uL RBC (4.30-5.90) m/uL MCV (80.0-100.0) fL Neutrophils # (1.3-7.7) k/uL Sodium (137-145) mmol/L Chloride (98-107) mmol/L Creatinine (0.66-1.25) mg/dL POC Glucose (mg/dL) 124 H 114 H (75-99) mg/dL Calcium (8.4-10.2) mg/dL Assessment and Plan Assessment: Subacute ischemic stroke over the left frontoparietal, probably in left posterior LV territory (on examination has weakness on right upper and lower extremity and decrease sensation over the right with appears sensory neglect over the right). However MRI of the brain shows evidence of bilateral small ischemic lesions in bilateral watershed territories between LV MCA. Unknown cause of stroke but seems embolic Cephalgia, likely due to postconcussive headache. He has history of 2 or 3 concussions in the past, the last one was 3 weeks ago. Repeated episodes of jerking of extremities for the past one week. Probably athetoid movement. Seizure very unlikely. The movement disorder resolved. Hypoglycemia (as low as 70, once, while in the hospital). History of CAD s/p stent Significant alcohol use Tobacco use (smokes <1PPD for years) Plan: * Patient states he used to take aspirin but has stopped taking aspirin "for months". We will place patient on dual antiplatelet medication for 21 days. Then stop Plavix and continue aspirin indefinitely. * 2-D echo revealed left ventricular ejection fraction 60-65%. Moderate concentric LVH. Mild MR, mild TR. * Patient underwent JOURDAN today. Results pending. * Patient's headaches have improved with [place]. We will start amitriptyline 10 mg at bedtime for chronic headaches. Patient's ESR is 4, C-reactive protein <0.5. No evidence of temporal arteritis. * Brain MRI revealed acute to subacute large area of infarct posterior left parietal lobe with additional areas in the lateral left parietal lobe and frontal left parietal lobe. Acute to subacute punctate multiple areas of infarct in the white matter of the right parietal lobe. Consider embolic phenomenon. These ischemic strokes are embolic, most likely cardiac source. Cardiology has seen patient today for nonsustained V. tach. Recommend JOURDAN for further evaluation. * CTA of the neck showed moderate to severe approximately 60-70% proximal right ICA stenosis secondary to calcified plaque of the right carotid bifurcation. Mild left internal carotid artery stenosis secondary to moderate calcified plaque at the carotid bifurcation. Vascular surgery Dr. Burgos has seen the patient, not recommending any intervention at this time. * Continue low dose of Lipitor 10 mg daily at bedtime for secondary stroke prophylaxis patient stated that he was on Lipitor in the past but did not like the feeling of the medication. If the patient has any side effects from Li pitor we'll stop it. * Carotid duplex is reported as parvus tardus waveform of the right visualized carotid system suggesting distal stenosis of the internal carotid artery. No evidence of significant stenosis in the left carotid system. * EEG revealed no epileptiform activity. * Continue neuro checks * PT OT and INSURANCE ADVISER are consulted * Continue thiamine 100 mg daily. * Will defer the rest of medical management to the primary team. * For DVT prophylaxis Continue subcu heparin 5000 every 12 hours
[2021-08-15] MEDS: ASPIRIN 81 MG PO SCH (10:02)
[2021-08-15] MEDS: ESCITALOPRAM 5 MG TAB PO SCH (10:02)
[2021-08-15] MEDS: CLOPIDOGREL 75 MG TAB PO SCH (10:02)
[2021-08-15] MEDS: LOSARTAN 25 MG TAB PO SCH (10:02)
[2021-08-15] MEDS: HEPARIN SODIUM,PORCINE/PF 5,000 UNIT/0.5 ML SYRINGE SQ SCH (10:02)
[2021-08-15] MEDS: METOPROLOL SUCCINATE (ER) 25 MG TAB.ER.24H PO SCH (10:02)
--- NOTE | 2021-08-15 11:04 | P.DS ---
Providers Date of admission: 08/07/21 12:14 Expected date of discharge: 08/22/21 Attending physician: Aguilar Thurston Consults: 08/07/21 12:15 Consult Physician Routine Consulting Provider: Slade Martínez Consult Reason/Comments: subacute CVA Do you want consulting provider notified?: Yes 08/08/21 07:51 Consult Physician Routine Consulting Provider: Leonardo Banks Consult Reason/Comments: lumbar and cervical spondylosis with recurrent falls Do you want consulting provider notified?: Yes 08/11/21 09:52 Consult Physician Routine Consulting Provider: Yosef Bender Consult Reason/Comments: Vtach run of 14 Do you want consulting provider notified?: Yes 08/12/21 14:45 Consult Physician Routine Consulting Provider: Sundar Mike Consult Reason/Comments: IP rehab Do you want consulting provider notified?: Yes Primary care physician: [facility] Course: Final Diagnoses: Subacute ischemic stroke involving left frontoparietal region, recent multiple falls daily over the last 10 days. Etiology unclear,possibly embolic. JOURDAN completed, results pending. Involuntary spasticity, jerking of right lower extremity, seizures unlikely- EEG reporting no epileptiform activity. Cephalgia, suspect postconcussive as per neurology. Appears chronic in nature,ESR is 4, C-reactive protein <0.5. No evidence of temporal arteritis. Parvus tardus waveforms of the right carotid system suggesting distal stenosis, CTA Angio chest/neck reported [id number] 60-70% proximal right internal carotid artery stenosis with no surgical intervention recommended at this time per vascular surgery. Further follow-up outpatient with vascular surgery for further monitoring. Nonsustained run of V. tach Hypoglycemia, resolved Dehydration secondary to poor water intake CAD, history of stent Alcohol abuse, drinks wine daily Nicotine dependence History of partial colectomy Moderate protein calorie malnutrition, secondary to poor diet intake, BMI 19.9 Degenerative disc disease COPD, stable History of diverticulitis Hospital course:Chief Complaint: Reported fall 10 days ago, increased weakness with right lower extremity sp. Left parietal CVA This is a 75-year-old gentleman with past medical history of CAD, hypertension, hyperlipidemia, nicotine and alcohol abuse, recent cardiac catheterization, April 2020 with 85% proximal to mid LAD involving diagonal 1, successful PCI of proximal to mid LAD with angioplasty of diagonal 1 and LAD, mild to moderate disease elsewhere including 50% and mid LAD and 30-40% proximal RCA-recommending maximizing medical treatment of proximal RCA and mid LAD, presented to the ER with recent multiple falls occurring about once a day with worsening weakness and spasticity in the right lower extremity. Reports he has not been sleeping well and has probably not slept for the last 3 days. Patient was initially scheduled yesterday for outpatient colonoscopy. Patient's brother arrived to take to appointment, and patient was discovered sitting in feces, unable to move himself out of the bed. Multiple radiology studies performed of the spine, extremities. Brain CT reported evolving now subacute infarct superior left frontoparietal junction greater than 6 hours in duration. Associated cortical and subcortical hypodensity and sulcal effacement but no midline shift or acute intracranial hemorrhage. Findings are new from 07/20/2021. Evaluated by both neurology and vascular surgery with recommendations noted and appreciated. 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 Hypoglycemic this morning with blood sugar of 70, repeat pending. Progress Note Date: 08/10/21 Principal diagnosis: Left parietal CVA Patient fell approximately 10 days ago no evidence of epidural hematoma noted, patient developed evidence of subacute ischemic stroke left frontal parietal, patient has had a mild right-sided weakness for the past week initially began with a lower extreme progressive upper extreme Patient's known history of alcohol abuse as well as his past history of diverticular disease with subtotal colon resection approximately 6 years ago, patient has evidence of malnutrition mild dumping syndrome when encouraged with oral intake his nutritional state improves he's been recommended to take multiple vitamins when he remembers and to drink water when he remembers ,has demonstrated lack of interest in good nutritional intake because he gets exhausted, and he just doesn't eat he smokes cigarettes and drinks wine. 08/11/2021 complaints of frontal pressure headache. Aphasic. Evaluated by speech therapy with recommendations noted and appreciated. Earlier this morning at around 09 10, developed a 14 beat run of nonsustained V. tach. Magnesium/labs pending. Denies chest pain, palpitations or shortness of breath. PT/OT recommending subacute rehab at discharge. 08/12/21 magnesium 1.4 yesterday, supplemented, currently 2.1 .telemetry sinus rhythm, evaluated by cardiology recommendations noted. Echo completed, pending. Evaluated by PT, reporting patient is impulsive, involuntary movements, stood at bedside, aphasic, possibly would be a candidate for inpatient rehab.-requesting further evaluation. Complains of head pressure now anteriorly located. Brain MRI reported acute distress subacute large area of infarct posterior left parietal lobe with additional areas in the lateral left parietal lobe and frontal left parietal lobe, acute to subacute acute punctate multiple areas of infarct in the white matter of the right parietal lobe, consider embolic phenomenon. 08/13/2021: Echo Reported moderate concentric left ventricular hypertrophy EF 60-65%.Evaluated by cardiology, scheduled for JOURDAN tomorrow. Evaluated by Dr. Moran, patient is not a candidate for inpatient rehab. 08/14/2021 just returning from JOURDAN, results pending. Mildly sedated, tolerated procedure. Denies chest pain, palpitations or increasing shortness of breath. Maintaining O2 sats in the high 90s on 2 L nasal cannula. Afebrile, WBC decreased to 10.9. Sodium 134, renal function stable. Blood sugars controlled. Dual antiplatelet for 21 days. Then stop Plavix and continue aspirin i ndefinitely. Patient's headaches have improved with [place]. Amitriptyline 10 mg at bedtime for chronic headaches initiated. ESR is 4, C-reactive protein <0.5. No evidence of temporal arteritis. Patient will be discharged to [facility] subacute rehab today in a stable condition with guarded prognosis pending JOURDAN results, final DC recommendations and clearance per cardiology and neurology. Patient has been on IV steroids as recommended per orthopedics surgery with DC recommendations pending. The impression and plan of care has been dictated as directed. : I performed a history and examination of this patient, discussed the same with the dictator. I agree with the dictator's note ,documented as a scribe. Any additional findings or plans will be noted. Patient Condition at Discharge: Stable Plan - Discharge Summary Discharge Rx Participant: Yes New Discharge Prescriptions: New Losartan [Cozaar] 25 mg PO DAILY tab Amitriptyline HCl [Elavil] 10 mg PO HS tab Butalb/APAP/Caff 50-325-40Mg [Fioricet 50-325-40] 1 each PO Q4HR PRN #18 tab PRN Reason: Headache HYDROcodone/APAP 5-325MG [[place] 5-325] 2 each PO Q6HR PRN 3 Days #24 tab PRN Reason: Moderate To Severe Pain HYDROcodone/APAP 5-325MG [[place] 5-325] 1 each PO Q6HR PRN 3 Days #12 tab PRN Reason: Pain Acetaminophen Tab [Tylenol] 650 mg PO Q6HR PRN tab PRN Reason: Fever and/ or Mild Pain Thiamine [Vitamin B-1] 100 mg PO DAILY tab Aspirin 81 mg PO DAILY Baclofen [Lioresal] 5 mg PO QID PRN tab PRN Reason: Muscle Spasm Atorvastatin [Lipitor] 10 mg PO HS tab Clopidogrel [Plavix] 75 mg PO DAILY 21 Days #21 tab Pantoprazole [Protonix] 40 mg PO AC-BRKFST tab Metoprolol Succinate (ER) [Toprol XL] 25 mg PO DAILY methylPREDNISolone [Medrol Dose Pack] 4 mg PO DIRECTED #1 packet Discontinued Omeprazole 20 mg PO QAM Discharge Medication List Acetaminophen Tab [Tylenol] 650 mg PO Q6HR PRN tab 08/15/21 [Rx] Amitriptyline HCl [Elavil] 10 mg PO HS tab 08/15/21 [Rx] Aspirin 81 mg PO DAILY 08/15/21 [Rx] Atorvastatin [Lipitor] 10 mg PO HS tab 08/15/21 [Rx] Baclofen [Lioresal] 5 mg PO QID PRN tab 08/15/21 [Rx] Butalb/APAP/Caff 50-325-40Mg [Fioricet 50-325-40] 1 each PO Q4HR PRN #18 tab 08/15/21 [Rx] Clopidogrel [Plavix] 75 mg PO DAILY 21 Days #21 tab 08/15/21 [Rx] HYDROcodone/APAP 5-325MG [[place] 5-325] 1 each PO Q6HR PRN 3 Days #12 tab 08/15/21 [Rx] HYDROcodone/APAP 5-325MG [[place] 5-325] 2 each PO Q6HR PRN 3 Days #24 tab 08/15/21 [Rx] Losartan [Cozaar] 25 mg PO DAILY tab 08/15/21 [Rx] Metoprolol Succinate (ER) [Toprol XL] 25 mg PO DAILY 08/15/21 [Rx] Pantoprazole [Protonix] 40 mg PO AC-BRKFST tab 08/15/21 [Rx] Thiamine [Vitamin B-1] 100 mg PO DAILY tab 08/15/21 [Rx] methylPREDNISolone [Medrol Dose Pack] 4 mg PO DIRECTED #1 packet 08/15/21 [Rx] Follow up Appointment(s)/Referral(s): Addison Charlton DO [Doctor of Osteopathic Medicine] - 4 Weeks Ivan Elliott MD [STAFF PHYSICIAN] - 3 Days Activity/Diet/Wound Care/Special Instructions: [place] SOLIMAN results pending CBC,BMP in 3 days Steroids as per orthopedic surgery Dual antiplatelet for 21 days. Then stop Plavix and continue aspirin indefinitely. Discharge Disposition: TRANSFER TO SNF/ECF
[2021-08-15 11:56] LABS: Glucose,Whole Blood 112 mg/dL (75-99)
--- NOTE | 2021-08-15 12:24 | P.PN ---
Subjective Progress Note Date: 08/15/21 HISTORY OF PRESENT ILLNESS: This is a 75-year-old male with a past medical history significant for coronary artery disease with previous stenting, TIA, tobacco abuse, vertigo, falls, and neuropathy. Patient follows in the office with Dr. Bender and was last seen in April 2020. We have been asked to see the patient in consultation for nonsustained ventricular tachycardia. Patient examined at the bedside. The patient presented to the emergency room after being found on the floor by his family member who called EMS. The patient underwent MRI of the brain on 08/11/2021 revealing acute to subacute large area of infarct posterior left parietal lobe with additional areas in the lateral left parietal lobe and frontal left parietal lobe. Acute to subacute punctate multiple areas of infarct in the white matter of the right parietal lobe. Consider embolic phenomenon. The patient was noted to have a 14 beat run of nonsustained ventricular tachycardia. The patient denies any chest pain or pressure. He denies any shortness of breath. He denies any dizziness or lightheadedness at the time of examination. He denies any palpitations. 2D echo was obtained and reviewed by Dr. Bender. However, due to IT issues this was not transferred to the EMR system appropriately. * EKG reveals sinus mechanism with no signs of acute ischemia * Chest xray chronic changes. No definite acute process. * Carotid Doppler: Parvus tardus waveforms of the right visualized carotid syst em suggesting distal stenosis of the internal carotid artery. No evidence of significant stenosis of the left carotid system * CTA neck: Moderate to severe, approximately 60-70% proximal right internal carotid artery stenosis secondary to calcified plaque of the right carotid bifurcation. Mild left internal carotid artery stenosis secondary to moderate calcified plaque at the left carotid bifurcation. * Brain CT reports findings suggesting developing, now subacute infarct superior left frontoparietal junction greater than 6 hours in duration. Associated cortical and subcortical hypodensity and sulcal effacement but no midline shift or acute intracranial hemorrhage. Findings are new from 07/20/2021 * Laboratory data: * Current home cardiac medications include none * Cardiac catheterization history: April 2020 revealing 85% proximal LAD stenosis with some involvement of the diagonal branch. PCI of the proximal LAD with Anja plus to the diagonal branch secondary to some jailing of donna gonal was performed. 08/13/2021 Patient examined this morning at the bedside. Patient denies chest pain or pressure. He denies shortness of breath. He reports a significant headache this morning. Telemetry reveals sinus mechanism with no significant arrhythmias. Blood pressure is slightly on the higher side with systolic in the 150s. 08/15/2021 Patient examined this point bedside. Patient denies chest pain or pressure. He denies shortness of breath. Patient underwent JOURDAN yesterday with Dr. Bender. Dictated report of JOURDAN is not in the computer. However, per Dr. Bender JOURDAN was negative. PHYSICAL EXAM: VITAL SIGNS: Reviewed. GENERAL: Well-developed in no acute distress. HEENT: Head is normocephalic. Pupils are equal, round. Sclerae anicteric. Mucous membranes of the mouth are moist. Neck supple. No JVD or thyromegaly LUNGS: Respirations even and unlabored. Lungs diminished to auscultation bilaterally. HEART: Regular rate and rhythm. S1 and S2 heard. ABDOMEN: Soft. Nondistended. Nontender. EXTREMITIES: Normal range of motion. No clubbing or cyanosis. Peripheral pulses intact. No lower extremity edema NEUROLOGIC: Awake and alert. ASSESSMENT: Acute to subacute large area of infarct posterior left parietal lobe, per MRI Nonsustained ventricular tachycardia Coronary artery disease with previous PCI History of TIA History of vertigo History of frequent falls and neuropathy History of nicotine dependence Hypomagnesemia, improved PLAN: Continue current cardiac medications No further inpatient recommendations from a cardiac standpoint We will sign off. Please reconsult if needed. Nurse practitioner note has been reviewed by physician. Signing provider agrees with the documented findings, assessment, and plan of care. Objective - Vital Signs Vital signs: Vital Signs Temp 98.1 F 08/15/21 00:00 Pulse 80 08/15/21 09:55 Resp 16 08/15/21 09:55 BP 123/75 08/15/21 09:55 Pulse Ox 97 08/15/21 09:55 Intake & Output 08/14/21 08/15/21 08/15/21 18:59 06:59 18:59 Intake Total 790 Output Total 300 750 Balance 490 -750 Intake: IV 550 .9@ 50mls/hr 450 Oral 240 Output: Urine 300 750 Other: Voiding Method External Catheter External Catheter External Catheter - Labs CBC & Chem 7: 08/15/21 08:43 08/15/21 08:43 Labs: Abnormal Lab Results - Last 24 Hours (Table) 08/14/21 08/14/21 08/15/21 Range/Units 16:51 20:25 06:08 WBC (3.8-10.6) k/uL MCV (80.0-100.0) fL Neutrophils # (1.3-7.7) k/uL Sodium (137-145) mmol/L BUN (9-20) mg/dL Glucose (74-99) mg/dL POC Glucose (mg/dL) 114 H 110 H 106 H (75-99) mg/dL Calcium (8.4-10.2) mg/dL 08/15/21 08/15/21 08/15/21 Range/Units 08:43 08:43 11:54 WBC 11.0 H (3.8-10.6) k/uL MCV 103.7 H (80.0-100.0) fL Neutrophils # 9.4 H (1.3-7.7) k/uL Sodium 132 L (137-145) mmol/L BUN 22 H (9-20) mg/dL Glucose 159 H (74-99) mg/dL POC Glucose (mg/dL) 112 H (75-99) mg/dL Calcium 7.9 L (8.4-10.2) mg/dL
[2021-08-15 13:05] VITALS: BP 132/78; PULSE 75; TEMP 98
--- NOTE | 2021-08-17 15:10 | US ---
EXAMINATION TYPE: US arterial LE single level DATE OF EXAM: 08/08/2021 11:25 AM CLINICAL HISTORY: nonpalpable popliteal pulses per PEDIATRIC SURGEON-C history of hyperlipidemia. Doppler Waveforms: Right: Biphasic to monophasic Left: Biphasic Ankle-Brachial Indices: Right: 1.17 Left: 1.18 Toe Brachial Indices: Right: 0.63 Left: 0.76 Loss of phasicity may be technical. Indices are within normal limits. IMPRESSION: As above.
--- NOTE | 2021-08-18 15:33 | P.PN ---
Subjective Progress Note Date: 08/15/21 08/15/2021: Patient is doing better. Patient's headaches have improved. He has been started on amitriptyline 10 mg at bedtime. Also on [place] and Fioricet. Telemetry monitoring showing sinus rhythm, SVT, sinus tachycardia. 08/14/2021: Patient was seen for a follow-up. Family members were not present. Patient complains of headaches 7.5-8/10. Asking for [place], which he feels helps. 08/13/2021: Patient was seen for a follow-up. Patient's daughter and son were present today. Patient continues to have some slow, slurred speech. No new focal symptoms. No further syncopal spells. Patient states Fioricet and [place] both are helping. The headache has improved. Patient's children have noticed that he often gets paranoid, delirious, also jumped out of bed. This is likely delirium from steroids. 08/12/2021: Patient had an episode of unresponsiveness that lasted for 3 minutes. He was noted to be drooling, bubbling. A-team was called, but patient within a couple minutes came out of it. His telemetry monitoring and vitals were stable at that time. At present his telemetry is showing sinus rhythm in the 80s with some PVCs. Patient at present complains of headaches. Patient's was present physically and daughter was on the cell phone on the speaker phone at this time. Apparently patient has history of 2 or 3 concussions due to falls in the past and the last time was 3-4 weeks ago when he fell. He has been having headaches since then. With one of the fall, he woke up on the floor, and called 911. Patient appears to have slightly slurred speech today. He is taking more slowly. 08/11/2021: The patient is 75-year-old male who is seen in neurologic follow-up. The chart is reviewed. The patient reportedly came into the emergency department with complaints of frequent falling and reports that his right leg is "useless". Patient states that 1 month ago he awoke in the morning and found that he was unable to use his right hand. He says he did seek the care of his primary care physician. More recently, the patient has been having difficulty with balance walking and lower extremity strength. In addition, the patient reports having difficulty getting his words out. CT scan of the brain, performed in the emergency department revealed evidence of a subacute infarct involving the left frontoparietal junction. Patient at present complains of pressure headache, as if someone is pushing down. It is not squeezing headache. At present it is 8 on a scale of 1-10. Patient has smoked since age 25-32 years. He has smoked slightly less than one pack per day all these years. Objective - Vital Signs Vital signs: Vital Signs Temp 98.0 F 08/15/21 13:04 Pulse 75 08/15/21 13:04 Resp 16 08/15/21 13:04 BP 132/78 08/15/21 13:04 Pulse Ox 98 08/15/21 13:04 FiO2 - Exam GENERAL: The patient is lying in bed and is not in acute distress. Patient's mentation appears to have improved. His latency time to answer questions have improved. NEUROLOGICAL: Higher mental function: The patient is awake, alert. No aphasia. Patient may be slightly dysarthric., And speaking somewhat slowly. Cranial nerves: The pupils are round, equal and reactive to light. Visual dominguez are full to confrontation throughout, with no neglect on double simultaneous stimulation. Extraocular movement is intact no nystagmus is noted. Facial sensation is normal to touch throughout. The facial strength is normal. Hearing is decreased bilaterally. Tongue is midline and moved [id number] without any difficulty. Motor: Gait is deferred because of his weakness. Muscle strength (right/left) deltoid 2-3+/5, biceps 4+/5, triceps 4+/5, curator horticultural museum 3+/5, hip flexion 4-/4, ankle dorsiflexion 4-/5 Cerebellum: Ataxic for [id number] testing on the right.. Sensation: Has decreased sensation to touch over the right upper extremity compared to left. In the lower extremities he was feeling better in the left lower extremity as compared to the right lower extremity. Reflexes (right/left): 1+ throughout. Plantars are hypersensitive bilaterally. WORK-UP: Lipid panel is triglyceride of 91, cholesterol 145, LDL 64 and HDL of 62. Hemoglobin A1c is 5.5. Vitamin B12 is 533 Serum folate is 10.40. TSH is 0.995 CT of the head is reported as findings this is involving, new subacute infarcts appear left frontal parietal junction greater than 6 hours in duration. Associate cortical subcortical hypodensity and sulcal effacement but no midline shift or acute intracranial hemorrhage. I personally reviewed the CT of the head and I agreed the patient does have at least subacute left frontal parietal stroke. CT cervical spine was reported as no evidence of acute traumatic Gaviria injury of the cervical spine. Degenerative changes of the cervical spine CT lumbar spine is reported as no vertebral compression collapse or malalignment. Mild to moderate multilevel degenerative disc disease. Mild to moderate neuroforaminal narrowing at L4-L5. Carotid duplex is reported as parvus tardus waveform of the right visualized carotid system suggesting distal stenosis of the internal carotid artery. No evidence of significant stenosis in the left carotid system. - Labs CBC & Chem 7: 08/15/21 08:43 08/15/21 08:43 Assessment and Plan Assessment: Subacute ischemic stroke over the left frontoparietal, probably in left posterior LV territory (on examination has weakness on right upper and lower extremity and decrease sensation over the right with appears sensory neglect over the right). However MRI of the brain shows evidence of bilateral small ischemic lesions in bilateral watershed territories between LV MCA. Unknown cause of stroke but seems embolic Cephalgia, likely due to postconcussive headache. He has history of 2 or 3 concussions in the past, the last one was 3 weeks ago. Repeated episodes of jerking of extremities for the past one week. Probably athetoid movement. Seizure very unlikely. The movement disorder resolved. Hypoglycemia (as low as 70, once, while in the hospital). History of CAD s/p stent Significant alcohol use Tobacco use (smokes <1PPD for years) Plan: * Patient states he used to take aspirin but has stopped taking aspirin "for months". We will place patient on dual antiplatelet medication for 21 days. Then stop Plavix and continue aspirin indefinitely. * 2-D echo revealed left ventricular ejection fraction 60-65%. Moderate concentric LVH. Mild MR, mild TR. * Patient underwent JOURDAN 08/14/2021. Results still pending. Per report from cardiology, JOURDAN was negative. * Patient's headaches have improved with [place]. We will start amitriptyline 10 mg at bedtime for chronic headaches. Patient's ESR is 4, C-reactive protein <0.5. No evidence of temporal arteritis. * Brain MRI revealed acute to subacute large area of infarct posterior left parietal lobe with additional areas in the lateral left parietal lobe and frontal left parietal lobe. Acute to subacute punctate multiple areas of infarct in the white matter of the right parietal lobe. Consider embolic phenomenon. These ischemic strokes are embolic, most likely cardiac source. Cardiology has seen patient today for nonsustained V. tach. Recommend JOURDAN for further evaluation. * CTA of the neck showed moderate to severe approximately 60-70% proximal right ICA stenosis secondary to calcified plaque of the right carotid bifurcation. Mild left internal carotid artery stenosis secondary to moderate calcified plaque at the carotid bifurcation. Vascular surgery Dr. Burgos has seen the patient, not recommending any intervention at this time. * Continue low dose of Lipitor 10 mg daily at bedtime for secondary stroke prophylaxis patient stated that he was on Lipitor in the past but did not like the feeling of the medication. If the patient has any side effects from Lipitor we'll stop it. * Carotid duplex is reported as parvus tardus waveform of the right visualized carotid system suggesting distal stenosis of the internal carotid artery. No evidence of significant stenosis in the left carotid system. * EEG revealed no epileptiform activity. * Continue neuro checks * PT OT and ENDS BREAKAGE CLERK are consulted * Continue thiamine 100 mg daily. * Neurologically cleared for transfer to rehab
== END 2021-08-15 16:00 | DRG 64 ==
LOC: EC 08:16 → 3SCARD 12:14 → UNDODISIN 08-12 12:40
PROVIDERS: ADMIT Family Medicine; ATTEND Family Medicine
DX: I63.40 Cerebral infarction due to embolism of unspecified cerebral artery (principal); G93.6 Cerebral edema; E44.0 Moderate protein-calorie malnutrition; Z68.1 Body mass index [BMI] 19.9 or less, adult; R41.4 Neurologic neglect syndrome; I47.2 Ventricular tachycardia; E78.5 Hyperlipidemia, unspecified; E83.42 Hypomagnesemia; F07.81 Postconcussional syndrome; J44.9 Chronic obstructive pulmonary disease, unspecified; E16.2 Hypoglycemia, unspecified; E86.0 Dehydration; F17.210 Nicotine dependence, cigarettes, uncomplicated; F10.10 Alcohol abuse, uncomplicated; I25.10 Atherosclerotic heart disease of native coronary artery without angina pectoris; M06.9 Rheumatoid arthritis, unspecified; M16.0 Bilateral primary osteoarthritis of hip; M40.294 Other kyphosis, thoracic region; M43.13 Spondylolisthesis, cervicothoracic region; M47.812 Spondylosis without myelopathy or radiculopathy, cervical region; M47.816 Spondylosis without myelopathy or radiculopathy, lumbar region; M48.02 Spinal stenosis, cervical region; M48.061 Spinal stenosis, lumbar region without neurogenic claudication; M51.34 Other intervertebral disc degeneration, thoracic region; M51.36 Other intervertebral disc degeneration, lumbar region; S42.001A Fracture of unspecified part of right clavicle, initial encounter for closed fracture; W19.XXXA Unspecified fall, initial encounter; R29.6 Repeated falls; R47.01 Aphasia; Z95.5 Presence of coronary angioplasty implant and graft; Z85.828 Personal history of other malignant neoplasm of skin; I25.2 Old myocardial infarction; Z79.899 Other long term (current) drug therapy; Z86.73 Personal history of transient ischemic attack (TIA), and cerebral infarction without residual deficits; Z90.49 Acquired absence of other specified parts of digestive tract; Z90.79 Acquired absence of other genital organ(s); Z91.81 History of falling
CPT/HCPCS: 36415; 70450; 70498; 70553; 71046; 71275; 72125; 72128; 72131; 73502; 80048; 80053; 80061; 81003; 82607; 82746; 83036; 83605; 83735; 84443; 84484; 85025; 85027; 85610; 85652; 85730; 86140; 87040; 93005; 93306; 93312; 93320; 93325; 93880; 93922; 95816; 96361; 96374; 96376; 99285

== ENCOUNTER 2021-09-11 12:56 | Inpatient (IN) | payer MEDICARE, BC ==
[2021-09-11] MEDS ORDERED: SODIUM CHLORIDE 0.9% 500 ML 500 ML IV STA (13:02)
--- NOTE | 2021-09-11 13:08 | ED ---
General Adult HPI - General Stated complaint: Poss stroke Time Seen by Provider: 09/11/21 12:56 Source: patient, RN notes reviewed, old records reviewed - History of Present Illness Initial comments: This is a 75-year-old male with past medical history significant for stroke and right-sided weakness as well as seizure history. Patient's symptoms started at noon. According to EMS today patient started to lean more towards the right family thought he was weak on the right than normal and he went into his seizure that lasted approximately 10 minutes. According to EMS he started to seize again once he was in the emesis a gave him 5 of Versed. Patient is unable to give us very much history because he appears to be postictal plus he has 5 of Versed. Patient denies any chest pain or abdominal pain patient denies headache . Patient denies any recent fevers. Patient had a stroke in July so he is no longer [facility] candidate. - Related Data Previous Rx's Medication Instructions Recorded Acetaminophen Tab [Tylenol] 650 mg PO Q6HR PRN tab 08/15/21 Amitriptyline HCl [Elavil] 10 mg PO HS tab 08/15/21 Aspirin 81 mg PO DAILY 08/15/21 Atorvastatin [Lipitor] 10 mg PO HS tab 08/15/21 Baclofen [Lioresal] 5 mg PO QID PRN tab 08/15/21 Butalb/APAP/Caff 50-325-40Mg 1 each PO Q4HR PRN #18 tab 08/15/21 [Fioricet 50-325-40] Clopidogrel [Plavix] 75 mg PO DAILY 21 Days #21 tab 08/15/21 HYDROcodone/APAP 5-325MG [Borup 1 each PO Q6HR PRN 3 Days #12 tab 08/15/21 5-325] HYDROcodone/APAP 5-325MG [Borup 2 each PO Q6HR PRN 3 Days #24 tab 08/15/21 5-325] Losartan [Cozaar] 25 mg PO DAILY tab 08/15/21 Metoprolol Succinate (ER) [Toprol 25 mg PO DAILY 08/15/21 XL] Pantoprazole [Protonix] 40 mg PO AC-BRKFST tab 08/15/21 Thiamine [Vitamin B-1] 100 mg PO DAILY tab 08/15/21 methylPREDNISolone [Medrol Dose 4 mg PO DIRECTED #1 packet 08/15/21 Pack] Allergies Allergy/AdvReac Type Severity Reaction Status Date / Time venom-honey bee Allergy Anaphylaxis Verified 09/11/21 13:04 [bee venom (honey bee)] Review of Systems ROS Statement: Those systems with pertinent positive or pertinent negative responses have been documented in the HPI. ROS Other: All systems not noted in ROS Statement are negative. Past Medical History Past Medical History: Coronary Artery Disease (CAD), Cancer, Chest Pain / Angina, Hypertension, Rheumatoid Arthritis (RA) Additional Past Medical History / Comment(s): SKIN CANCER. DIVERTICULITIS History of Any Multi-Drug Resistant Organisms: None Reported Past Surgical History: Cholecystectomy Additional Past Surgical History / Comment(s): RETINOL DETACHMENT REPAIR (6 ON LEFT, 1 ON RIGHT). TESTICLE REMOVED Past Anesthesia/Blood Transfusion Reactions: No Reported Reaction, Motion Sickness Date of Last Stent Placement:: UNKNOWN DATE APPROX 2009 Past Psychological History: No Psychological Hx Reported Smoking Status: Current some day smoker Past Alcohol Use History: Daily Past Drug Use History: None Reported - Past Family History Daughter(s) Family Medical History: Cancer Additional Family Medical History / Comment(s): Breast cancer. General Exam - General Exam Comments Initial Comments: GENERAL: Patient is well-developed and well-nourished. Patient is nontoxic and well- hydrated and is in no acute distress. ENT: Neck is soft and supple. No significant lymphadenopathy is noted. Oropharynx is clear. Moist mucous membranes. Neck has full range of motion without eliciting any pain. EYES: The sclera were anicteric and conjunctiva were pink and moist. Extraocular movements were intact and pupils were equal round and reactive to light. Eyelids were unremarkable. PULMONARY: Unlabored respirations. Good breath sounds bilaterally. No audible rales rhonchi or wheezing was noted. CARDIOVASCULAR: There is a regular rate and rhythm without any murmurs gallops or rubs. ABDOMEN: Soft and nontender with normal bowel sounds. SKIN: Skin is clear with no lesions or rashes and otherwise unremarkable. NEUROLOGIC: Patient is alert and oriented 2. Cranial nerves II through XII are grossly intact. Patient is able to move his right foot and right arm the foot has some weakness 3 out of 5 dorsi and plantar flexion compared to the left and the right beef lugger is a 4-5 compared to the left side. Normal speech, volume and content. Symmetrical smile. MUSCULOSKELETAL: Normal extremities with adequate strength and full range of motion. LYMPHATICS: No significant lymphadenopathy is noted PSYCHIATRIC: Difficult to assess secondary to the fact the patient is somewhat postictal and he has 5/7. Course Vital Signs 09/11/21 09/11/21 09/11/21 12:57 13:05 13:15 Temperature 98.0 F Pulse Rate 85 80 78 Respiratory 18 14 Rate Blood Pressure 114/69 102/72 113/76 O2 Sat by Pulse 93 L 93 L 99 Oximetry 09/11/21 14:00 Temperature Pulse Rate 81 Respiratory 18 Rate Blood Pressure 110/72 O2 Sat by Pulse 100 Oximetry Medical Decision Making - Medical Decision Making After I did a quick interview with the patient and EMS called a code alteplase EKG shows sinus rhythm at 85 bpm MI interval 239 QRSs 87 Q-T intervals 59 QTC is 42 per patient's EKG shows no ST segment elevation or depression. Family came in and stated that the patient has never had a seizure before. According to family patient is at his baseline currently CT of the brain shows no acute abnormality. CT of the head neck shows a right- sided stenotic area from a plaque measures greater than 95%. I spoke with Dr. Sumner about this and he did not think any interventions this time was necessary wanted the patient admitted to our hospital placed on Plavix statin and aspirin. I spoke with Dr. moya he agreed to admit the patient I admitted the patient wrote admitting orders - Lab Data Result diagrams: 09/11/21 13:00 09/11/21 13:00 Lab Results 09/11/21 09/11/21 09/11/21 Range/Units 13:00 13:00 13:00 WBC 8.9 (3.8-10.6) k/uL RBC 3.28 L (4.30-5.90) m/uL Hgb 11.1 L D (13.0-17.5) gm/dL Hct 34.2 L (39.0-53.0) % MCV 104.3 H (80.0-100.0) fL MCH 33.8 (25.0-35.0) pg MCHC 32.4 (31.0-37.0) g/dL RDW 14.0 (11.5-15.5) % Plt Count 348 (150-450) k/uL MPV 8.0 Neutrophils % 68 % Lymphocytes % 17 % Monocytes % 11 % Eosinophils % 2 % Basophils % 0 % Neutrophils # 6.0 (1.3-7.7) k/uL Lymphocytes # 1.6 (1.0-4.8) k/uL Monocytes # 0.9 (0-1.0) k/uL Eosinophils # 0.1 (0-0.7) k/uL Basophils # 0.0 (0-0.2) k/uL Macrocytosis Slight PT 11.0 (9.0-12.0) sec INR 1.0 (<1.2) APTT 25.6 (22.0-30.0) sec Sodium 140 (137-145) mmol/L Potassium 3.7 (3.5-5.1) mmol/L Chloride 111 H (98-107) mmol/L Carbon Dioxide 24 (22-30) mmol/L Anion Gap 5 mmol/L BUN 14 (9-20) mg/dL Creatinine 0.67 (0.66-1.25) mg/dL Est GFR (CKD-EPI)AfAm >90 (>60 ml/min/1.73 sqM) Est GFR (CKD-EPI)NonAf >90 (>60 ml/min/1.73 sqM) Glucose 93 (74-99) mg/dL POC Glucose (mg/dL) (70-110) mg/dL POC Glu Acute Care Assistant ID Calcium 7.1 L (8.4-10.2) mg/dL Total Bilirubin 0.4 (0.2-1.3) mg/dL AST 20 (17-59) U/L ALT 13 (4-49) U/L Alkaline Phosphatase 53 (38-126) U/L Troponin I (0.000-0.034) ng/mL Total Protein 4.8 L (6.3-8.2) g/dL Albumin 2.4 L (3.5-5.0) g/dL Serum Alcohol <10 mg/dL 09/11/21 09/11/21 Range/Units 13:00 13:04 WBC (3.8-10.6) k/uL RBC (4.30-5.90) m/uL Hgb (13.0-17.5) gm/dL Hct (39.0-53.0) % MCV (80.0-100.0) fL MCH (25.0-35.0) pg MCHC (31.0-37.0) g/dL RDW (11.5-15.5) % Plt Count (150-450) k/uL MPV Neutrophils % % Lymphocytes % % Monocytes % % Eosinophils % % Basophils % % Neutrophils # (1.3-7.7) k/uL Lymphocytes # (1.0-4.8) k/uL Monocytes # (0-1.0) k/uL Eosinophils # (0-0.7) k/uL Basophils # (0-0.2) k/uL Macrocytosis PT (9.0-12.0) sec INR (<1.2) APTT (22.0-30.0) sec Sodium (137-145) mmol/L Potassium (3.5-5.1) mmol/L Chloride (98-107) mmol/L Carbon Dioxide (22-30) mmol/L Anion Gap mmol/L BUN (9-20) mg/dL Creatinine (0.66-1.25) mg/dL Est GFR (CKD-EPI)AfAm (>60 ml/min/1.73 sqM) Est GFR (CKD-EPI)NonAf (>60 ml/min/1.73 sqM) Glucose (74-99) mg/dL POC Glucose (mg/dL) 102 (70-110) mg/dL POC Glu Acute Care Assistant Sherita Pond Calcium (8.4-10.2) mg/dL Total Bilirubin (0.2-1.3) mg/dL AST (17-59) U/L ALT (4-49) U/L Alkaline Phosphatase (38-126) U/L Troponin I <0.012 (0.000-0.034) ng/mL Total Protein (6.3-8.2) g/dL Albumin (3.5-5.0) g/dL Serum Alcohol mg/dL Critical Care Time Critical Care Time: Yes Total Critical Care Time: 35 Disposition Clinical Impression: New onset seizure, TIA (transient ischemic attack) Disposition: ADMITTED IP TO THIS [facility] Instructions (If sedation given, give patient instructions): Seizure/Epilepsy Discharge Instructions & Follow-Up Referrals: Aguilar Thurston Jr, [Primary Care Provider] - 1-2 days Time of Disposition: 16:02
[2021-09-11 13:15] LABS: Glucose,Whole Blood 102 mg/dL (70-110)
[2021-09-11 13:21] LABS: Basophils % (A) 0 %; Eosinophils # (A) 0.1 k/uL (0-0.7); Eosinophils % (A) 2 %; HCT 34.2 % (39.0-53.0); Lymphocytes # (A) 1.6 k/uL (1.0-4.8); Lymphocytes % (A) 17 %; MCH 33.8 pg (25.0-35.0); MCHC 32.4 g/dL (31.0-37.0); MCV 104.3 fL (80.0-100.0); Macrocytosis Slight; Monocytes # (A) 0.9 k/uL (0-1.0); Monocytes % (A) 11 %; Neutrophils % (A) 68 %; Platelet Count 348 k/uL (150-450); RBC 3.28 m/uL (4.30-5.90); WBC 8.9 k/uL (3.8-10.6)
[2021-09-11 13:22] LABS: Partial Thromboplastin Time 25.6 sec (22.0-30.0)
[2021-09-11 13:25] LABS: HGB 11.1 gm/dL (13.0-17.5)
--- NOTE | 2021-09-11 13:25 | CT ---
EXAMINATION TYPE: CT brain wo con for TPA DATE OF EXAM: 09/11/2021 HISTORY: cva. Acute onset neuro deficit. CT DLP: 1107.6 mGycm. Automated Exposure Control for Dose Reduction was Utilized. TECHNIQUE: CT scan of the head is performed without contrast. COMPARISON: CT brain August 07, 2021. FINDINGS: There is no acute intracranial hemorrhage or midline shift identified. There is mild diff use ventricular and sulcal prominence consistent with diffuse age-related cerebral atrophy. There is mild low-attenuation in the periventricular white matter consistent with chronic small vessel ischem ic change. Vague area of low attenuation high left parietal region axial image 54 redemonstrated jessica esponding to site of subacute infarction. Increased opacification of the left ethmoid sinuses. Some d ependent opacification or fluid in the left frontal sinus. Globes are intact bilaterally. IMPRESSION: No acute intracranial hemorrhage or midline shift. There is mild diffuse cerebral atrop hy and chronic small vessel ischemic change redemonstrated. Subacute infarct high left parietal lobe redemonstrated. Worsening paranasal sinus disease noted.
[2021-09-11 13:31] LABS: ALT 13 U/L (4-49); AST 20 U/L (17-59); African American GFR (CKD) >90 (>60 ml/min/1.73 sqM); Albumin 2.4 g/dL (3.5-5.0); Alcohol <10 mg/dL; Alkaline Phosphatase 53 U/L (38-126); Anion Gap 5 mmol/L; Blood Urea Nitrogen 14 mg/dL (9-20); Calcium 7.1 mg/dL (8.4-10.2); Carbon Dioxide 24 mmol/L (22-30); Chloride 111 mmol/L (98-107); Glucose 93 mg/dL (74-99); Non-African American GFR(CKD) >90 (>60 ml/min/1.73 sqM); Potassium 3.7 mmol/L (3.5-5.1); Sodium 140 mmol/L (137-145); Total Bilirubin 0.4 mg/dL (0.2-1.3); Total Protein 4.8 g/dL (6.3-8.2)
--- NOTE | 2021-09-11 13:58 | CT ---
EXAMINATION TYPE: CT angio head neck DATE OF EXAM: 09/11/2021 HISTORY: cva COMPARISON: CT dated 08/08/2021 CT DLP: 402 mGycm. Automated Exposure Control for Dose Reduction was Utilized. TECHNIQUE: CTA scan of the head and neck is performed with IV Contrast, patient injected with 65cc m L of Isovue 370, axial images are obtained, coronal and sagittal reformatted images are reviewed. 3D reconstructed images are created on an independent workstation and reviewed. FINDINGS: Carotid/Vascular Structures: Scattered arterial atherosclerotic calcification and tortuosity. 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 Mild stenosis of the orig in of the right vertebral artery. Dominant left vertebral artery. No other significant arterial steno sis, occlusion, dissection or aneurysm. Patent major intracranial venous sinuses. Other: COPD changes. Degenerative changes of the cervical spine. 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 Recommend vascular surgery consultation. No other significant stenosis, occlusi on, dissection or aneurysm. Other findings as described above.
[2021-09-11] MEDS ORDERED: ACETAMINOPHEN TAB 500 MG TAB PO STA (14:11)
--- NOTE | 2021-09-11 14:19 | XR ---
EXAMINATION TYPE: XR chest 2V DATE OF EXAM: 09/11/2021 COMPARISON: 08/07/2021 HISTORY: 75 year-old male altered mental status, right-sided weakness, confusion TECHNIQUE: AP and lateral views FINDINGS: Patient rotated towards the right. Heart upper limits of normal in size. Mild hyperinflation. No jeferson k consolidation or pleural effusion. There may be an old fracture deformity of the medial right clavi shekhar. IMPRESSION: Possible underlying COPD. Kyphosis. No definite acute process.
[2021-09-11] MEDS ORDERED: ASPIRIN 325 MG TAB PO STA (16:02)
[2021-09-11] MEDS ORDERED: HYDROmorphone 0.5 MG/0.5 ML SYRINGE IVP STA (17:32)
[2021-09-11] MEDS ORDERED: ACETAMINOPHEN TAB 325 MG TAB PO PRN (19:10)
[2021-09-11] MEDS: HYDROcodone/APAP 7.5-325MG 1 EACH TAB PO PRN ×2 (20:06→23:53)
[2021-09-11] MEDS: AMITRIPTYLINE HCL 10 MG TAB PO SCH (21:50)
[2021-09-11] MEDS: SODIUM CHLORIDE 0.9% 1,000 ML IV SCH (22:21)
[2021-09-12] MEDS: SODIUM CHLORIDE 0.9% 1,000 ML IV SCH ×3 (06:57→20:35)
[2021-09-12] MEDS: PANTOPRAZOLE 40 MG TABLET PO SCH (06:57)
[2021-09-12] MEDS ORDERED: IPRATROPIUM-ALBUTEROL 3 ML NEB INHALATION PRN (08:20)
[2021-09-12] MEDS: CLOPIDOGREL 75 MG TAB PO SCH (08:34)
[2021-09-12] MEDS: LOSARTAN 25 MG TAB PO SCH (08:34)
[2021-09-12] MEDS: ASPIRIN 325 MG TAB PO SCH (08:34)
[2021-09-12] MEDS: METOPROLOL SUCCINATE (ER) 25 MG TAB.ER.24H PO SCH (08:34)
[2021-09-12] MEDS: ATORVASTATIN 40 MG TAB PO SCH (08:34)
[2021-09-12] MEDS: HYDROcodone/APAP 7.5-325MG 1 EACH TAB PO PRN ×2 (08:56→17:24)
[2021-09-12 09:46] LABS: ALT 14 U/L (4-49); AST 25 U/L (17-59); African American GFR (CKD) >90 (>60 ml/min/1.73 sqM); Albumin 2.8 g/dL (3.5-5.0); Alkaline Phosphatase 73 U/L (38-126); Anion Gap 5 mmol/L; Blood Urea Nitrogen 10 mg/dL (9-20); Calcium 7.4 mg/dL (8.4-10.2); Carbon Dioxide 25 mmol/L (22-30); Chloride 109 mmol/L (98-107); Glucose 70 mg/dL (74-99); Non-African American GFR(CKD) >90 (>60 ml/min/1.73 sqM); Potassium 4.2 mmol/L (3.5-5.1); Sodium 139 mmol/L (137-145); Total Bilirubin 0.4 mg/dL (0.2-1.3); Total Protein 5.3 g/dL (6.3-8.2)
[2021-09-12 10:07] LABS: Basophils # (A) 0.1 k/uL (0-0.2); Basophils % (A) 2 %; Eosinophils # (A) 0.1 k/uL (0-0.7); Eosinophils % (A) 1 %; HCT 36.9 % (39.0-53.0); Hypochromasia Slight; Lymphocytes # (A) 0.9 k/uL (1.0-4.8); Lymphocytes % (A) 10 %; MCH 34.1 pg (25.0-35.0); MCHC 32.6 g/dL (31.0-37.0); MCV 104.7 fL (80.0-100.0); Macrocytosis Slight; Mean Platelet Volume 8.5; Monocytes % (A) 11 %; Neutrophils # (A) 6.7 k/uL (1.3-7.7); Neutrophils % (A) 75 %; Platelet Count 278 k/uL (150-450); RBC 3.53 m/uL (4.30-5.90); RDW 13.1 % (11.5-15.5)
[2021-09-12] MEDS ORDERED: Magnesium Replacement Protocol 1 EACH MISC MISCELLANE PRN (11:28)
[2021-09-12] MEDS: SYMBICORT 80-4.5 MCG INHALER INHALATION SCH ×2 (11:35→21:08)
[2021-09-12] MEDS: IPRATROPIUM-ALBUTEROL 3 ML NEB INHALATION SCH ×3 (11:35→21:08)
--- NOTE | 2021-09-12 11:37 | P.GSCN ---
History of Present Illness Consult date: 09/12/21 Reason for Consult: Stenosis proximal portion brachiocephalic artery Requesting physician: Kev Todd History of present illness: This is a 75-year-old male who presented to the emergency department for increased right-sided weakness as well as seizure. Patient was brought in by EMS. According to reports family. The patient had been leaning more to the right than normal and then he went into seizure activity. Patient was recently admitted here 08/07/2021 through 08/15/2021 for subacute ischemic stroke over the left frontoparietal with right upper and lower extremity weakness. Likely follow-up with stroke was embolic in nature. He has a past medical history of coronary artery disease status post stenting, myocardial infarction, tobacco and alcohol abuse, hypertension, and skin cancer. Patient states he has cut pack and smokes a pack a day cigarettes, has been smoking for over 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 Brain CT reports no acute intracranial hemorrhage or midline shift. Mild diffuse cerebral atrophy and chronic small vessel ischemic changes redemonst rated. Subacute infarct high left parietal lobe redemonstrated. Worsening sinus disease noted. Previous Carotid Doppler 08/07/21: Parvus tardus waveforms of the right visualized carotid system suggesting distal stenosis of the internal carotid artery. No evidence of significant stenosis of the left carotid system Review of Systems A 14 point review systems was completed all pertinent positives and negatives as stated in the HPI. Past Medical History Past Medical History: Coronary Artery Disease (CAD), Cancer, Chest Pain / Angina, Hypertension, Rheumatoid Arthritis (RA) Additional Past Medical History / Comment(s): SKIN CANCER. DIVERTICULITIS. stroke, blood clots History of Any Multi-Drug Resistant Organisms: None Reported Past Surgical History: Bowel Resection, Cholecystectomy, Heart Catheterization With Stent Additional Past Surgical History / Comment(s): RETINAL DETACHMENT REPAIR (6 ON LEFT, 1 ON RIGHT). TESTICLE REMOVED Past Anesthesia/Blood Transfusion Reactions: No Reported Reaction Date of Last Stent Placement:: 2019 Past Psychological History: Depression Smoking Status: Current some day smoker Past Alcohol Use History: Daily Additional Past Alcohol Use History / Comment(s): SMOKES ABOUT 2-3 CIG PER DAY, SINCE WAS AGE 23 YRS. GLASS 0F WINE Past Drug Use History: None Reported - Past Family History Daughter(s) Family Medical History: Cancer Additional Family Medical History / Comment(s): Breast cancer. Medications and Allergies Home Medications Medication Instructions Recorded Confirmed Type Acetaminophen Tab [Tylenol] 650 mg PO Q6HR PRN tab 08/15/21 09/11/21 Rx Amitriptyline HCl [Elavil] 10 mg PO HS tab 08/15/21 09/11/21 Rx Atorvastatin [Lipitor] 10 mg PO HS tab 08/15/21 09/11/21 Rx Losartan [Cozaar] 25 mg PO DAILY tab 08/15/21 09/11/21 Rx Metoprolol Succinate (ER) [Toprol 25 mg PO DAILY 08/15/21 09/11/21 Rx XL] Pantoprazole [Protonix] 40 mg PO AC-BRKFST tab 08/15/21 09/11/21 Rx HYDROcodone/APAP 7.5-325MG [[place] 0.5 - 1 tab PO Q4H PRN 09/11/21 09/11/21 History 7.5-325] Allergies Allergy/AdvReac Type Severity Reaction Status Date / Time venom-honey bee Allergy Anaphylaxis Verified 09/11/21 16:27 [bee venom (honey bee)] Surgical - Exam Vital Signs Temp Pulse Resp BP Pulse Ox 98.0 F 85 18 114/69 93 L 09/11/21 12:57 09/11/21 12:57 09/11/21 12:57 09/11/21 12:57 09/11/21 12:57 General appearance: The patient is alert, oriented, appears in no acute distress. HET: Head is normocephalic and atraumatic. Pupils are equal and reactive. Neck: Supple without lymphadenopathy. Trachea midline. No audible carotid bruit. Heart: S1 S2. Regular rate and rhythm. Lungs: Clear to auscultation bilaterally. Abdomen: Soft, nontender, nondistended. Extremities: Normal skin color and turgor. No cyanosis, rash, ulceration, clubbing, or edema. Radial and pedal pulses are 2/4 bilaterally. Neurological: No focal deficits. Strength and sensation are grossly intact. Results - Labs 09/12/21 09:01 09/12/21 09:01 Abnormal Lab Results - Last 24 Hours (Table) 09/11/21 09/11/21 Range/Units 13:00 13:00 RBC 3.28 L (4.30-5.90) m/uL Hgb 11.1 L D (13.0-17.5) gm/dL Hct 34.2 L (39.0-53.0) % MCV 104.3 H (80.0-100.0) fL Chloride 111 H (98-107) mmol/L Calcium 7.1 L (8.4-10.2) mg/dL Total Protein 4.8 L (6.3-8.2) g/dL Albumin 2.4 L (3.5-5.0) g/dL Diabetes panel 09/11/21 Range/Units 13:00 Sodium 140 (137-145) mmol/L Potassium 3.7 (3.5-5.1) mmol/L Chloride 111 H (98-107) mmol/L Carbon Dioxide 24 (22-30) mmol/L BUN 14 (9-20) mg/dL Creatinine 0.67 (0.66-1.25) mg/dL Glucose 93 (74-99) mg/dL Calcium 7.1 L (8.4-10.2) mg/dL AST 20 (17-59) U/L ALT 13 (4-49) U/L Alkaline Phosphatase 53 (38-126) U/L Total Protein 4.8 L (6.3-8.2) g/dL Albumin 2.4 L (3.5-5.0) g/dL Calcium panel 09/11/21 Range/Units 13:00 Calcium 7.1 L (8.4-10.2) mg/dL Albumin 2.4 L (3.5-5.0) g/dL Pituitary panel 09/11/21 Range/Units 13:00 Sodium 140 (137-145) mmol/L Potassium 3.7 (3.5-5.1) mmol/L Chloride 111 H (98-107) mmol/L Carbon Dioxide 24 (22-30) mmol/L BUN 14 (9-20) mg/dL Creatinine 0.67 (0.66-1.25) mg/dL Glucose 93 (74-99) mg/dL Calcium 7.1 L (8.4-10.2) mg/dL Adrenal panel 09/11/21 Range/Units 13:00 Sodium 140 (137-145) mmol/L Potassium 3.7 (3.5-5.1) mmol/L Chloride 111 H (98-107) mmol/L Carbon Dioxide 24 (22-30) mmol/L BUN 14 (9-20) mg/dL Creatinine 0.67 (0.66-1.25) mg/dL Glucose 93 (74-99) mg/dL Calcium 7.1 L (8.4-10.2) mg/dL Total Bilirubin 0.4 (0.2-1.3) mg/dL AST 20 (17-59) U/L ALT 13 (4-49) U/L Alkaline Phosphatase 53 (38-126) U/L Total Protein 4.8 L (6.3-8.2) g/dL Albumin 2.4 L (3.5-5.0) g/dL - Imaging Comments: CT angiogram head and neck of report more than 95% stenosis of the proximal portion of the brachiocephalic artery extending for about 10 mm as described. Brain CT reports no acute intracranial hemorrhage or midline shift. Mild diffuse cerebral atrophy and chronic small vessel ischemic changes redemonst rated. Subacute infarct high left parietal lobe redemonstrated. Worsening sinus disease noted. Previous Carotid Doppler 08/07/21: Parvus tardus waveforms of the right visualized carotid system suggesting distal stenosis of the internal carotid artery. No evidence of significant stenosis of the left carotid system Assessment and Plan Assessment: 1. 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 Right-sided weakness 3. Possible seizure 4. History of recent subacute ischemic stroke over the frontoparietal lobe 5. History of coronary artery disease status post stent 6. Significant alcohol use 7. Tobacco abuse Plan: 1. Continue symptomatic and supportive care 2. Agree with aspirin and statin and Plavix 3. Appreciate recommendations from neurology 4. Unlikely strokelike symptoms and previous stroke related to brachiocephalic stenosis. Will plan to follow up outpatient for further workup and likely schedule for stenting. Thank you for this consultation, we will sign off at this time. The impression and plan of care has been dictated as directed. I performed a history and examination of this patient, discussed the same with the dictator. I agree with the dictator's note ,documented as a scribe. Any additional findings or plans will be noted.
[2021-09-12] MEDS: NICOTINE 14MG/24HR PATCH TRANSDERM SCH (12:51)
--- NOTE | 2021-09-12 14:11 | P.HPIM ---
History of Present Illness H&P Date: 09/12/21 This is a 75-year-old gentleman with past medical history of recent subacute ischemic left frontal parietal junction stroke suspected embolic by nature with involuntary spasticity, jerking of right lower extremity, probably athetoid movement- EEG reporting no epileptiform activity in July ;CAD, hypertension, hyperlipidemia, nicotine-cut down to 1 pack per day and alcohol abuse-reports no alcohol in 2 months, recent cardiac catheterization, April 2020 with 85% proximal to mid LAD involving diagonal 1, successful PCI of proximal to mid LAD with angioplasty of diagonal 1 and LAD, mild to moderate disease elsewhere including 50% and mid LAD and 30-40% proximal RCA-recommending maximizing medical treatment of proximal RCA and mid LAD, brought into the ER by Ambulance.Per ER records,Family reported his chronic right sided weakness appeared increased, as he was leaning more to the right , followed by seizure activity lasting 10 minutes. EMS witnessed another seizure episode and admi nistered Versed ( EMS records currently unavailable). Denies any incontinence. Denies chest pain, palpitations or shortness of breath. Denies any nausea vomiting or abdominal pain. Denies lightheadedness, dizziness or focal deficits. Denies headaches. Brain CT reported no acute intracranial hemorrhage or midline shift, mild diffuse cerebral atrophy and chronic small vessel ischemic changes redemonstrated, subacute infarct high parietal lobe redemonstrated, worsening paranasal sinus disease. 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 ( Previous Carotid Doppler 08/07/21: Parvus tardus waveforms of the right carotid system suggesting distal stenosis, CTA Angio chest/neck reported [id number] 60- 70% proximal right internal carotid artery stenosis with no surgical intervention recommended per vascular surgery.)Chest x-ray reporting mild hyperinflation, possible underlying COPD, kyphosis, no definite acute process. EKG reported sinus rhythm, troponin negative. Afebrile, normal WBC, hemoglobin 12, platelets 278. Magnesium 1.0. Renal function stable, serum alcohol negative. Review of Systems ROS Statement: Those systems with pertinent positive or pertinent negative responses have been documented in the HPI. ROS Other: All systems not noted in ROS Statement are negative. Past Medical History Past Medical History: Coronary Artery Disease (CAD), Cancer, Chest Pain / Angina, Hypertension, Rheumatoid Arthritis (RA) Additional Past Medical History / Comment(s): SKIN CANCER. DIVERTICULITIS. stroke, blood clots History of Any Multi-Drug Resistant Organisms: None Reported Past Surgical History: Bowel Resection, Cholecystectomy, Heart Catheterization With Stent Additional Past Surgical History / Comment(s): RETINAL DETACHMENT REPAIR (6 ON LEFT, 1 ON RIGHT). TESTICLE REMOVED Past Anesthesia/Blood Transfusion Reactions: No Reported Reaction Date of Last Stent Placement:: 2019 Past Psychological History: Depression Smoking Status: Current some day smoker Past Alcohol Use History: Daily Additional Past Alcohol Use History / Comment(s): SMOKES ABOUT 2-3 CIG PER DAY, SINCE WAS AGE 23 YRS. GLASS 0F WINE Past Drug Use History: None Reported - Past Family History Daughter(s) Family Medical History: Cancer Additional Family Medical History / Comment(s): Breast cancer. Medications and Allergies Home Medications Medication Instructions Recorded Confirmed Type Acetaminophen Tab [Tylenol] 650 mg PO Q6HR PRN tab 08/15/21 09/11/21 Rx Amitriptyline HCl [Elavil] 10 mg PO HS tab 08/15/21 09/11/21 Rx Atorvastatin [Lipitor] 10 mg PO HS tab 08/15/21 09/11/21 Rx Losartan [Cozaar] 25 mg PO DAILY tab 08/15/21 09/11/21 Rx Metoprolol Succinate (ER) [Toprol 25 mg PO DAILY 08/15/21 09/11/21 Rx XL] Pantoprazole [Protonix] 40 mg PO AC-BRKFST tab 08/15/21 09/11/21 Rx HYDROcodone/APAP 7.5-325MG [[place] 0.5 - 1 tab PO Q4H PRN 09/11/21 09/11/21 History 7.5-325] Allergies Allergy/AdvReac Type Severity Reaction Status Date / Time venom-honey bee Allergy Anaphylaxis Verified 09/11/21 16:27 [bee venom (honey bee)] Physical Exam Vitals: Vital Signs Temp Pulse Pulse Resp BP BP Pulse Ox 09/12/21 04:00 98.0 F 83 16 131/74 98 09/11/21 20:50 97.7 F 67 20 98/75 97 09/11/21 18:00 77 14 106/63 99 09/11/21 16:00 75 18 124/83 98 09/11/21 15:00 68 108/75 98 09/11/21 14:00 81 18 110/72 100 09/11/21 13:15 78 14 113/76 99 09/11/21 13:05 80 102/72 93 L 09/11/21 12:57 98.0 F 85 18 114/69 93 L Intake and Output 09/11/21 09/12/21 09/12/21 22:59 06:59 14:59 Output Total 240 110 Balance -240 -110 Output: Urine 240 110 Other: Voiding Method Urinal Urinal Weight 54.431 kg General: [Cachectic, alert and oriented 3, sitting up in bed, no acute distress, fluently talking on the phone. HEENT: [Normocephalic, atraumatic ,PERRL. EOMI.] Neck: Supple, no JVD Cardiac: [Heart regular in rate and rhythm. No S3. No S4. No clicks, rubs. No murmur.] Lungs: [Clear to auscultation bilaterally.] Abdomen: Soft, nondistended, No organomegaly. No guarding, Bowel sounds present. Extremes: [No edema no cyanosis,normal pulses] Skin: Warm and dry, No rash. Neurologic: Alert and oriented 3, speech fluent, residual decreased strength on the right side. Lymphatic: [No adenopathy. Results CBC & Chem 7: 09/12/21 09:01 09/12/21 09:01 Labs: Abnormal Lab Results - Last 24 Hours (Table) 09/11/21 09/11/21 Range/Units 13:00 13:00 RBC 3.28 L (4.30-5.90) m/uL Hgb 11.1 L D (13.0-17.5) gm/dL Hct 34.2 L (39.0-53.0) % MCV 104.3 H (80.0-100.0) fL Chloride 111 H (98-107) mmol/L Calcium 7.1 L (8.4-10.2) mg/dL Total Protein 4.8 L (6.3-8.2) g/dL Albumin 2.4 L (3.5-5.0) g/dL Thrombosis Risk Factor Assmnt - Choose All That Apply Any of the Below Risk Factors Present?: No Each Risk Factor Represents 2 Points: Age 61-74 years, Patient confined to bed Other congenital or acquired thrombophilia - If yes, enter type in comment: No Each Risk Factor Represents 5 Points: Stroke (< 1 month) Thrombosis Risk Factor Assessment Total Risk Factor Score: 9 Thrombosis Risk Factor Assessment Level: High Risk Assessment and Plan Assessment: Possible New onset seizures 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 Hypomagnesemia Recent ( August 17) subacute ischemic stroke involving left frontoparietal region, Etiology unclear,possibly embolic. JOURDAN negative Continuing Involuntary spasticity, jerking of right lower extremity, present on last admission, seizures unlikely- EEG ( August 17) reporting no epileptiform activity, possibly Athetoid . Recent carotid Doppler 08/07/2021 :Parvus tardus waveforms of the right carotid system suggesting distal stenosis, CTA Angio chest/neck reported [id number] 60-70% proximal right internal carotid artery stenosis with no surgical intervention recommended per vascular surgery. CAD, history of stent Alcohol abuse, reports no alcohol in 2 months, serum alcohol negative Nicotine dependence, decreased to 1 pack per day History of partial colectomy Moderate protein calorie malnutrition, secondary to poor diet intake, BMI 18.2 Degenerative disc disease COPD, stable History of diverticulitis Plan: Continue on current medication regime, monitoring and symptomatically treatment. Magnesium replacement as per protocol ordered. Maintain seizure precautions. Neurology and vascular consult in place, recommendations pending. PT/OT,CARLEEN at pa. The impression and plan of care has been dictated as directed. : I performed a history and examination of this patient, discussed the same with the dictator. I agree with the dictator's note ,documented as a scribe. Any additional findings or plans will be noted.
[2021-09-12 14:56] VITALS: BMI 18.2
[2021-09-12 17:13] LABS: Glucose,Whole Blood 116 mg/dL (70-110)
[2021-09-12] MEDS: predniSONE 20 MG TAB PO SCH (17:21)
[2021-09-12] MEDS: INSULIN ASPART (NovoLOG) 100 UNIT/ML VIAL SQ SCH ×2 (17:21→20:35)
[2021-09-12] MEDS: FOLIC ACID-VIT B COMPLEX-VIT C 1 CAP PO SCH (17:21)
--- NOTE | 2021-09-12 17:22 | MR ---
EXAMINATION TYPE: MR brain wo con DATE OF EXAM: 09/12/2021 4:44 PM COMPARISON: CT head neck 09/11/2021 CT brain 09/11/2021. MRI brain 08/11/2021. CLINICAL INDICATION:Male, 75 years old with history of Stroke vs seizure; TECHNIQUE: Multi planar, multi sequence imaging was performed through the brain including: T1, T2, In version recovery, Diffusion weighted imaging, and gradient echo imaging. No gadolinium was given. FINDINGS: There is similar scattered restricted diffusion in the left parietal lobe distribution not significantly changed compared to prior and also affecting the left posterior aspect of the frontal l obe. Few foci of restricted diffusion in the white matter of the right parietal frontal lobe and left frontal lobe are also not significantly changed from prior. No new areas of restricted diffusion def initively visualized. The ventricular system, and cisterns appear unremarkable. Scattered areas of h igh T2 signal intensity are seen within the periventricular white matter. Midline structures show no abnormality. The bone marrow signal is within normal limits. The paranasal sinuses demonstrate scattered calcified thickening most pronounced in the left ethmoid air cells. The right mastoid sinus demonstrates an ef fusion. IMPRESSION: 1. Similar exam compared to 08/11/2021 with infarcts in a similar distribution involving the left aaliyah etal and left posterior frontal lobe. Additional foci seen within the deep white matter involving the both frontal lobes and right parietal lobes are also not significantly changed and likely represent embolic phenomenon. No definitive new area of infarct visualized. 2. Nonspecific white matter changes, likely secondary to small vessel ischemic disease.
--- NOTE | 2021-09-12 18:23 | EEG ---
ELECTROENCEPHALOGRAM REPORT DATE OF SERVICE: 09/12/2021 PREAMBLE: This is a 75-year-old male with history of recent stroke, had a seizure versus recurrent stroke/TIA. This study is performed to evaluate for any epileptiform activity. EEG FINDINGS: This is a 21-channel digital EEG recorded with video competent, utilizing 10/20 international system with referential and bipolar montages. Background consists of well developed, well regulated, moderate amplitude activity in 8 hertz alpha. Background is posterior-dominant and reactive to eye opening and closing. Frequent bitemporal slowing in dysrhythmic and delta and some theta range was seen in bilateral temporal regions, left more than right. Some sharply contoured waves were seen in the left temporal region, which did not appear clearly epileptiform. Photic driving response was not seen. Different stages of sleep were not seen. During the second half of the study, frequent/continuous myogenic artifact was seen in the bilateral frontal temporal regions. IMPRESSION: This is an abnormal EEG due to bitemporal slowing, left more than right. This is suggestive of focal cortical neural dysfunction and may suggest underlying structural abnormality. Some sharply contoured waves were seen in the left temporal region, which did not appear clearly epileptiform. The study was technically limited because the second half of the study had a continuous myogenic artifact seen in bilateral frontal temporal regions. Suggest a prolonged, sleep-deprived EEG for further evaluation if your suspicion for seizures is high. MMODL / IJN: [id number] / [id number]
[2021-09-12 18:37] LABS: Chol/HDL Ratio 2.57 Ratio; LDL Cholesterol,Calculated 60.4 mg/dL (0.0-131.0)
[2021-09-12 20:26] LABS: Glucose,Whole Blood 103 mg/dL (70-110)
[2021-09-12] MEDS: AMITRIPTYLINE HCL 10 MG TAB PO SCH (20:34)
[2021-09-12] MEDS: MAGNESIUM SULFATE-D5W PMX 1 GM in DEXTROSE/WATER 1 100ML.BAG IVPB SCH ×2 (20:35→23:13)
[2021-09-13] MEDS: MAGNESIUM SULFATE-D5W PMX 1 GM in DEXTROSE/WATER 1 100ML.BAG IVPB SCH (00:23)
[2021-09-13] MEDS: HYDROcodone/APAP 7.5-325MG 1 EACH TAB PO PRN ×3 (04:18→20:37)
[2021-09-13 06:34] LABS: Glucose,Whole Blood 114 mg/dL (70-110)
[2021-09-13] MEDS: PANTOPRAZOLE 40 MG TABLET PO SCH (06:38)
[2021-09-13] MEDS: INSULIN ASPART (NovoLOG) 100 UNIT/ML VIAL SQ SCH ×4 (06:39→20:38)
[2021-09-13] MEDS: SODIUM CHLORIDE 0.9% 1,000 ML IV SCH ×2 (06:39→16:45)
[2021-09-13] MEDS: SYMBICORT 80-4.5 MCG INHALER INHALATION SCH ×2 (08:23→19:51)
[2021-09-13] MEDS: IPRATROPIUM-ALBUTEROL 3 ML NEB INHALATION SCH ×4 (08:23→19:51)
[2021-09-13] MEDS: CLOPIDOGREL 75 MG TAB PO SCH (08:40)
[2021-09-13] MEDS: predniSONE 20 MG TAB PO SCH (08:40)
[2021-09-13] MEDS: FOLIC ACID-VIT B COMPLEX-VIT C 1 CAP PO SCH (08:40)
[2021-09-13] MEDS: METOPROLOL SUCCINATE (ER) 25 MG TAB.ER.24H PO SCH (08:40)
[2021-09-13] MEDS: NICOTINE 14MG/24HR PATCH TRANSDERM SCH ×2 (08:40→08:43)
[2021-09-13] MEDS: ATORVASTATIN 40 MG TAB PO SCH (08:40)
[2021-09-13] MEDS: LOSARTAN 25 MG TAB PO SCH (08:40)
[2021-09-13] MEDS: ASPIRIN 325 MG TAB PO SCH (08:40)
--- NOTE | 2021-09-13 09:49 | P.CNNES ---
History of Present Illness Consult date: 09/12/21 Requesting physician: Kev Todd Reason for Consult: TIA History of Present Illness: Patient is a 75-year-old male who recently was admitted to the hospital on 08/07/2021 for an acute stroke involving the left bilateral ischemic lesion in watershed territories between LV MCA. He was discharged on 08/15/2021. Jayme smith's stroke was of unclear source, as the embolic workup was negative. Patient also had complained of significant cephalgia which was felt to be due to postconcussive headaches. Patient was placed on dual antiplatelet medication aspirin and Plavix for 21 days and then was recommended to stop Plavix and continue aspirin daily. Patient prior to that stroke had not been taking aspirin for "months", therefore was not considered an aspirin failure. Patient was brought to the hospital yesterday at 12:56 PM because he thought that he had a similar spell, and all the symptoms came back, although was not as severe as the last episode. He says that he was "all mixed up". He "think about what he wanted to say, but he could not get words out. As per electronic records, it was mentioned that patient started to lean more towards the right and the family thought that he was weaker on the right than normal and went into a full body seizure that lasted approximately 10 minutes. According to EMS, he started to seize again. He was given Versed 5 mg. When he arrived to the ER he was in a postictal state and also had received Versed 5 mg. Patient was evaluated in the ED. Patient was not a candidate for TPA, as he just had a stroke a month prior. His vital signs on arrival blood pressure 114/69, pulse rate 85 temperature 98.0. Blood test shows normal WBC hemoglobin 11.1 platelets 348. PT/PTT normal, Chem-7 normal. Hepatic panel normal. Blood alcohol level negative. CT head showed no acute intracranial hemorrhage or midline shift. There is mild diffuse cerebral atrophy and chronic small vessel ischemic change redemonstrated. Subacute infarct high left parietal lobe redemonstrated. Worsening paranasal sinus disease noted. I reviewed CT head and agree with the findings. CTA of head and neck was reviewed. He still smokes 4-5 cigarettes per day. He has smoked half pack per day for 30 years. He has not drank alcohol for 2 months. He used to drink heavily prior to that. Patient's workup performed on the last admission is as below: * Brain MRI revealed acute to subacute large area of infarct posterior left aaliyah etal lobe with additional areas in the lateral left parietal lobe and frontal left parietal lobe. Acute to subacute punctate multiple areas of infarct in the white matter of the right parietal lobe. Consider embolic phenomenon. These ischemic strokes are embolic, most likely cardiac source. Cardiology has seen patient today for nonsustained V. tach. Recommend JOURDAN for further evaluation. * CTA of the neck showed moderate to severe approximately 60-70% proximal right ICA stenosis secondary to calcified plaque of the right carotid bifurcation. Mild left internal carotid artery stenosis secondary to moderate calcified plaque at the carotid bifurcation. Vascular surgery Dr. Burgos has seen the patient, not recommending any intervention at this time. * Continue low dose of Lipitor 10 mg daily at bedtime for secondary stroke prophylaxis patient stated that he was on Lipitor in the past but did not like the feeling of the medication. If the patient has any side effects from Lipitor we'll stop it. * Carotid duplex is reported as parvus tardus waveform of the right visualized carotid system suggesting distal stenosis of the internal carotid artery. No evidence of significant stenosis in the left carotid system. * EEG revealed no epileptiform activity. * JOURDAN showed aortic valve is tricuspid with mild aortic sclerosis and no significant aortic stenosis or aortic regurgitation. Mitral valve appeared to be normal with mild MR. The interatrial septum was intact and lipomatous intr a-atrial septum. No evidence of PFO. Left atrial appendage is free of clot. Left-ventricular size and function are normal with EF 60%. * Hemoglobin A1c 5.5 on 08/07/2021 Review of Systems Patient denies any chest pain, shortness of breath, wheezing or cough. Denies abdominal pain nausea vomiting diarrhea. Patient states that he still gets h eadaches "once in a while" and the [place] and Fioricet helps. He has no headache right now. Denies any fever or chills. No rash. No double vision. Denies dizziness at this time. All other review of systems reviewed, and noncontributory to the [place] illness, except as mentioned in HPI. Past Medical History Past Medical History: Coronary Artery Disease (CAD), Cancer, Chest Pain / Angina, Hypertension, Rheumatoid Arthritis (RA) Additional Past Medical History / Comment(s): SKIN CANCER. DIVERTICULITIS. stroke, blood clots History of Any Multi-Drug Resistant Organisms: None Reported Past Surgical History: Bowel Resection, Cholecystectomy, Heart Catheterization With Stent Additional Past Surgical History / Comment(s): RETINAL DETACHMENT REPAIR (6 ON LEFT, 1 ON RIGHT). TESTICLE REMOVED Past Anesthesia/Blood Transfusion Reactions: No Reported Reaction Date of Last Stent Placement:: 2019 Past Psychological History: Depression Smoking Status: Current some day smoker Past Alcohol Use History: Daily Additional Past Alcohol Use History / Comment(s): SMOKES ABOUT 2-3 CIG PER DAY, SINCE WAS AGE 23 YRS. GLASS 0F WINE Past Drug Use History: None Reported - Past Family History Daughter(s) Family Medical History: Cancer Additional Family Medical History / Comment(s): Breast cancer. Medications and Allergies Home Medications Medication Instructions Recorded Confirmed Type Acetaminophen Tab [Tylenol] 650 mg PO Q6HR PRN tab 08/15/21 09/11/21 Rx Amitriptyline HCl [Elavil] 10 mg PO HS tab 08/15/21 09/11/21 Rx Atorvastatin [Lipitor] 10 mg PO HS tab 08/15/21 09/11/21 Rx Losartan [Cozaar] 25 mg PO DAILY tab 08/15/21 09/11/21 Rx Metoprolol Succinate (ER) [Toprol 25 mg PO DAILY 08/15/21 09/11/21 Rx XL] Pantoprazole [Protonix] 40 mg PO AC-BRKFST tab 08/15/21 09/11/21 Rx HYDROcodone/APAP 7.5-325MG [[place] 0.5 - 1 tab PO Q4H PRN 09/11/21 09/11/21 History 7.5-325] Allergies Allergy/AdvReac Type Severity Reaction Status Date / Time venom-honey bee Allergy Anaphylaxis Verified 09/11/21 16:27 [bee venom (honey bee)] Physical Examination - Vital Signs Vital Signs: Vital Signs Temp Pulse Pulse Resp BP Pulse Ox 09/13/21 08:33 86 09/13/21 08:23 84 94 L 09/13/21 08:00 88 16 104/66 96 09/13/21 04:00 98.2 F 65 16 102/74 95 09/12/21 23:11 98.2 F 82 18 98/71 97 09/12/21 19:56 98.3 F 74 16 105/74 98 09/12/21 17:30 83 16 97/72 98 09/12/21 12:35 97.9 F 79 16 92/62 98 Intake and Output 09/12/21 09/13/21 09/13/21 22:59 06:59 14:59 Intake Total 125 Output Total 250 200 Balance -125 -200 Intake: Oral 125 Output: Urine 250 200 Other: Voiding Method Urinal Urinal Patient is an elderly male, in no acute distress. Patient is alert awake oriented to time place and person. He knows it is August and the year is and that he is in [facility] in [place] and he knows name of the current president. Speech is mildly dysarthric and language functions are normal. He can name and repeat very well. Attention, concentration intact and fund of knowledge is slightly limited. Detailed cognitive function testing deferred. On cranial examination, pupils are round and reacting to light, visual dominguez are full on confrontation, with no neglect on double simultaneous to admission. His extraocular muscles are intact with no nystagmus. Face is symmetric, tongue protrudes to the midline. Palatal elevation and sensation normal, hearing is slightly decreased to hand rub bilaterally and shoulder shrug normal, facial sensation normal. Shoulder shrug normal. On muscle strength testing, there is right pronator drift and the strength is (r ight/left) deltoid 4/5, biceps 5/5, triceps 5-/5, wood sash and frame carpenter 4/5, hip flexion 4+/5, ankle dorsiflexion 5/5. Deep tendon reflexes are 1+ to 2+ and plantars are withdrawal bilaterally. Sensory to touch is slightly decreased in the right arm and right leg as compared to the left side. Sensations are equal on the face. Cerebellar function showed mild ataxia for [id number] testing on the right. Tone and bulk of muscles normal. Gait: Not checked. On general examination, there is no carotid bruit or murmur, S1-S2 audible. Abdomen is soft nontender. no organomegaly, bowel sounds present. Chest is clear. Peripheral pulses are present. No edema. Results - Laboratory Findings CBC and BMP: 09/12/21 09:01 09/12/21 09:01 Abnormal Lab Findings: Abnormal Labs 09/11/21 09/11/21 09/12/21 13:00 13:00 09:01 RBC 3.28 L 3.53 L Hgb 11.1 L D 12.0 L Hct 34.2 L 36.9 L MCV 104.3 H 104.7 H Lymphocytes # 0.9 L Chloride 111 H Creatinine Glucose POC Glucose (mg/dL) Calcium 7.1 L Magnesium Total Protein 4.8 L Albumin 2.4 L 09/12/21 09/12/21 09/13/21 09:01 17:10 06:33 RBC Hgb Hct MCV Lymphocytes # Chloride 109 H Creatinine 0.61 L Glucose 70 L POC Glucose (mg/dL) 116 H 114 H Calcium 7.4 L Magnesium 1.0 L Total Protein 5.3 L Albumin 2.8 L Assessment and Plan Assessment: * Possible seizure, rule out recurrent stroke/ TIA * Recent history of acute stroke involving bilateral hemispheric region involving watershed territory. * Tension-type headaches * History of concussions * CAD * History of alcohol abuse, sober since last 2 months * Tobacco use, still smokes 4-5 cigarettes per day. Plan: * Patient has presented with seizure versus CVA. Needs further workup. * Patient will be continued on dual antiplatelet medication with aspirin and Plavix. * CTA of head and neck revealed more than 95% stenosis of the proximal portion of the brachiocephalic artery extending for about 10 mm. Recommend vascular surgical consultation. No other significant stenosis, occlusion, dissection or aneurysm. * Vascular surgery input appreciated. Recommending dual antiplatelet medication, statins and outpatient follow-up in vascular surgery clinic. * Lipid panel with cholesterol 136, LDL 60, HDL 53 and triglycerides 113. Patient was on Lipitor 10 mg, agree with increasing dose to 40 mg. * MRI of the brain evaluate for any new stroke. * EEG evaluate for epileptiform activity. * Telemetric monitoring. * Patient had a JOURDAN performed last admitted, which showed no embolic source. * Recommend event monitor placement prior to discharge to rule out paroxysmal atrial fibrillation. * Recommend complete tobacco cessation. Patient still smoking 4-5 cigarettes per day. * Patient's home medication does not list about Aspirin. We will obtain collateral history from the family about his medications. * Neurology will follow. Discussed with primary team. Thank you for the consult. Time with Patient: Greater than 30
--- NOTE | 2021-09-13 11:18 | P.PN ---
Subjective Progress Note Date: 09/13/21 09/12/21 This is a 75-year-old gentleman with past medical history of recent subacute ischemic left frontal parietal junction stroke suspected embolic by nature with involuntary spasticity, jerking of right lower extremity, probably athetoid movement- EEG reporting no epileptiform activity in July ;CAD, hypertension, hyperlipidemia, nicotine-cut down to 1 pack per day and alcohol abuse-reports no alcohol in 2 months, recent cardiac catheterization, April 2020 with 85% proximal to mid LAD involving diagonal 1, successful PCI of proximal to mid LAD with angioplasty of diagonal 1 and LAD, mild to moderate disease elsewhere including 50% and mid LAD and 30-40% proximal RCA-recommending maximizing medical treatment of proximal RCA and mid LAD, brought into the ER by Ambulance.Per ER records,Family reported his chronic right sided weakness appeared increased, as he was leaning more to the right , followed by seizure activity lasting 10 minutes. EMS witnessed another seizure episode and a dministered Versed ( EMS records currently unavailable). Denies any incontinence. Denies chest pain, palpitations or shortness of breath. Denies any nausea vomiting or abdominal pain. Denies lightheadedness, dizziness or focal deficits. Denies headaches. Brain CT reported no acute intracranial hemorrhage or midline shift, mild diffuse cerebral atrophy and chronic small vessel ischemic changes redemonstrated, subacute infarct high parietal lobe redemonstrated, worsening paranasal sinus disease. 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 ( Previous Carotid Doppler 08/07/21: Parvus tardus waveforms of the right carotid system suggesting distal stenosis, CTA Angio chest/neck reported [id number] 60- 70% proximal right internal carotid artery stenosis with no surgical intervention recommended per vascular surgery.)Chest x-ray reporting mild hyperinflation, possible underlying COPD, kyphosis, no definite acute process. EKG reported sinus rhythm, troponin negative. Afebrile, normal WBC, hemoglobin 12, platelets 278. Magnesium 1.0. Renal function stable, serum alcohol negative. 09/13/21: Overnight patient is remaining afebrile. Heart rate remained stable. Oxygenation is normal. Magnesium is 1.9. Other labs are pending. Updated EEG shows that was abnormal with bitemporal slowing left more than right. Neurology consult reviewed. They recommended an event monitor to evaluate for occult atrial fibrillation. Vascular surgery to see him regarding the 95% stenosis at the brachiocephalic artery extending from 10 mm. They're planning outpatient treatment. Objective - Vital Signs Vital signs: Vital Signs Temp 98.2 F 09/13/21 04:00 Pulse 86 09/13/21 08:33 Resp 16 09/13/21 08:00 BP 104/66 09/13/21 08:00 Pulse Ox 94 L 09/13/21 08:23 FiO2 Intake & Output 09/12/21 09/13/21 09/13/21 18:59 06:59 18:59 Intake Total 243 Output Total 310 450 Balance -67 -450 Weight 54.431 kg Intake: Oral 243 Output: Urine 310 450 Other: Voiding Method Urinal Urinal Urinal # Voids 2 - Exam General: Cachectic, alert and oriented 3, sitting up in bed, no acute distress , Neck: Supple, no JVD Cardiac: Heart regular in rate and rhythm. No S3. No S4. No clicks, rubs. No murmur. Lungs:Clear to auscultation bilaterally. Abdomen: Soft, nondistended, No organomegaly. No guarding, Bowel sounds present. Extremes: No edema no cyanosis,normal pulses Skin: Warm and dry, there is extensive plaque-like rash to the back. It has some decrease colonization noted. Neurologic: Alert and oriented 3, speech fluent, residual decreased strength on the right side, leg greater than arm. Lymphatic: No adenopathy. - Labs CBC & Chem 7: 09/12/21 09:01 09/12/21 09:01 Labs: Abnormal Lab Results - Last 24 Hours (Table) 09/12/21 09/13/21 Range/Units 17:10 06:33 POC Glucose (mg/dL) 116 H 114 H (70-110) mg/dL Assessment and Plan (1) New onset seizure Current Visit: Yes Status: Acute Code(s): R56.9 - UNSPECIFIED CONVULSIONS SNOMED Code(s): 10045948 (2) TIA (transient ischemic attack) Current Visit: Yes Status: Acute Code(s): G45.9 - TRANSIENT CEREBRAL ISC HEMIC ATTACK, UNSPECIFIED SNOMED Code(s): 551062938 (3) H/O: CVA (cerebrovascular accident) Current Visit: Yes Status: Acute Code(s): Z86.73 - PRSNL HX OF TIA (TIA), AND CEREB INFRC W/O RESID DEFICITS SNOMED Code(s): 921869778 (4) Right hemiplegia Current Visit: Yes Status: Acute Code(s): G81.91 - HEMIPLEGIA, UNSPECIFIED AFFECTING RIGHT DOMINANT SIDE SNOMED Code(s): 791183566 (5) Dysarthria Current Visit: Yes Status: Acute Code(s): R47.1 - DYSARTHRIA AND ANARTHRIA SNOMED Code(s): 5163454 (6) Former consumption of alcohol Current Visit: Yes Status: Acute Code(s): Z87.898 - PERSONAL HISTORY OF OTHER SPECIFIED CONDITIONS SNOMED Code(s): 790273467 (7) CAD (coronary artery disease) Current Visit: Yes Status: Acute Code(s): I25.10 - ATHSCL HEART DISEASE OF [place] CORONARY ARTERY W/O ANG PCTRS SNOMED Code(s): 92208248 (8) COPD (chronic obstructive pulmonary disease) Current Visit: No Status: Acute Code(s): J44.9 - CHRONIC OBSTRUCTIVE PULMONARY DISEASE, UNSPECIFIED SNOMED Code(s): 46360644 (9) History of partial colectomy Current Visit: No Status: Acute Code(s): Z90.49 - ACQUIRED ABSENCE OF OTHER SPECIFIED PARTS OF DIGESTIVE TRACT SNOMED Code(s): 410534163 (10) Rash and nonspecific skin eruption Current Visit: Yes Status: Acute Code(s): R21 - RASH AND OTHER NONSPECIFIC SKIN ERUPTION SNOMED Code(s): 742832285 Plan: wait on further recommendations from Neurology possible antiepileptic medications consult Cardiology for possible loop recorder placement outpatient treatment of the the brachiocephalic artery 95% stenosis, increase protein and caloric intake continue PT/OT continue current medications d/c elavil as possible cause of rash continue PO steroids and topical for rash repeat labs in am helpock iv he will be reevaluated in 24 horus
[2021-09-13 11:41] LABS: Glucose,Whole Blood 110 mg/dL (70-110)
[2021-09-13] MEDS ORDERED: levETIRAcetam 500 MG TAB PO SCH (12:30)
--- NOTE | 2021-09-13 13:31 | CONS ---
CONSULTATION CHIEF COMPLAINT: CVA. Cornel is a 75-year-old gentleman with history of hypertension, dyslipidemia, coronary artery disease, status post prior angioplasty, who presented to hospital with involuntary movements and tingling and numbness involving right upper extremity. He has history of prior infarct involving the left frontoparietal lobe. At the time of my evaluation, his symptoms have been improving. Patient has history of alcohol abuse but has cut down the alcohol quite a bit and states that he is going to quit smoking now. Patient had a cardiac catheterization in 2020 with an 85% proximal LAD stenosis that was stented with a 30% to 40% right coronary artery disease that is being managed medically. We have been consulted to place a loop recorder to rule out atrial fibrillation. PAST MEDICAL HISTORY: Significant for coronary artery disease, status post angioplasty, CVA, hypertension, dyslipidemia. MEDICATIONS: Medications at home include Protonix, Toprol, Cozaar, [place], Lipitor and Elavil. ALLERGIES: [place] FAMILY HISTORY: Negative for premature coronary artery disease. SOCIAL HISTORY: Significant for smoking and ETOH abuse. REVIEW OF SYSTEMS: Fourteen out of 14 review of systems has been performed. The pertinent information is involuntary movements and tingling and numbness of the right upper extremity and unstable gait. PHYSICAL EXAMINATION: Comfortable at rest. Afebrile. Vital signs are stable. There is no jugular venous distention. Carotid upstroke is diminished. There is no bruit. Chest exam reveals good air entry bilaterally. Heart exam reveals first and second heart sounds, systolic murmur at the left lower sternal border. Abdomen is soft. Examination of extremities did not reveal any edema. Peripheral pulses are felt. CT angiogram revealed 95% stenosis involving the proximal brachiocephalic artery. MRI of the brain showed an infarct involving the left parietal and posterior frontal lobe. Patient had a JOURDAN on 08/30/2021 that did not reveal intracardiac thrombus or shunting across the interatrial septum. ASSESSMENT: 1. Recurrent cerebrovascular accident. To rule out cardiac source of thromboembolic phenomenon. 2. Coronary artery disease, status post angioplasty. 3. Hypertension. 4. Dyslipidemia. PLAN: Patient will undergo a loop recorder. If he is being discharged home over the weekend, we will schedule this as outpatient through Dr. Bender's office. MMSALEEML / LUNAN: [id number] /
--- NOTE | 2021-09-13 16:10 | P.PN ---
Subjective Progress Note Date: 09/13/21 This is a telemedicine neurology follow performed today on 09/13/2021. Patient was seen for a follow-up. Patient's daughters were also present today. Patient is laying comfortably in the bed. No seizures since admission. Denies any new neurological symptoms. His right-sided weakness is stable, not any worse since his seizure. Spoke to patient's daughter Heather, who manages patient's medication. Apparently after the last admission, patient was transferred to rehabilitation facility where he stayed for 10 days. He was discharged home from rehabilitation facility to his home on no antiplatelet medication. Patient was not taking aspirin. Patient's daughter states that her brother witnessed a full body convulsion prior to arrival to the ER. It lasted for over 10 minutes. Objective - Vital Signs Vital signs: Vital Signs Temp 98.2 F 09/13/21 04:00 Pulse 80 09/13/21 11:48 Resp 16 09/13/21 11:48 BP 120/74 09/13/21 11:48 Pulse Ox 98 09/13/21 11:48 FiO2 Intake & Output 09/12/21 09/13/21 09/13/21 18:59 06:59 18:59 Intake Total 243 Output Total 310 450 300 Balance -67 -450 -300 Weight 54.431 kg Intake: Oral 243 Output: Urine 310 450 300 Other: Voiding Method Urinal Urinal Urinal # Voids 2 - Exam Patient is alert and awake in no distress. Detail examination deferred. - Labs CBC & Chem 7: 09/12/21 09:01 09/12/21 09:01 Labs: Abnormal Lab Results - Last 24 Hours (Table) 09/12/21 09/13/21 Range/Units 17:10 06:33 POC Glucose (mg/dL) 116 H 114 H (70-110) mg/dL Assessment and Plan Assessment: * New onset seizure. Rule out TIA. * Recent history of acute stroke involving bilateral hemispheric region (L>R)involving watershed territory. * Tension-type headaches * History of concussions * CAD * History of alcohol abuse, sober since last 2 months * Tobacco use, still smokes 4-5 cigarettes per day. Plan: * MRI of the brain was performed, which revealed similar exam compared to 08/11/2021 with infarcts in the similar distribution involving the left parietal and left posterior frontal lobe. Additional foci seen within the deep white matter involving both frontal lobes and right parietal lobes are also not significantly changed and likely represent embolic phenomenon. No definitive new areas of infarct visualized. I personally reviewed MRI of the brain, and it appears that the abnormal signal on DWI and ADC mapping is still present, not resolved yet. I reviewed MRI of the brain with Dr. España, neuroradiologist, who agreed that there is no new infarct. * After speaking to patient's daughter Heather, it appears patient was not taking any antiplatelet medication at home (after discharge from rehabilitation facility on 08/25/2021). He will be resumed on aspirin 81 mg and Plavix 75 mg daily. 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 * EEG was abnormal due to bitemporal slowing, left more than right. This is suggestive of focal cortical neuronal dysfunction and may suggest an underlying structural abnormality. Some sharply contoured waves were seen in the left temporal region, and therr morphology did not appear clearly epileptiform. This study was technically limited because of second half of the study had a continuous myogenic artifact seen in bilateral frontal temporal region. Suggest a prolonged, sleep deprived EEG for further evaluation if your suspicion for seizures is high. * Patient will be started and maintained on Keppra 500 mg twice a day for seizure prophylaxis. * CTA of head and neck revealed more than 95% stenosis of the proximal portion of the brachiocephalic artery extending for about 10 mm. Recommend vascular surgical consultation. No other significant stenosis, occlusion, dissection or aneurysm. * Vascular surgery input appreciated. Recommending dual antiplatelet medication, statins and outpatient follow-up in vascular surgery clinic. * Lipid panel with cholesterol 136, LDL 60, HDL 53 and triglycerides 113. Patient was on Lipitor 10 mg, agree with increasing dose to 40 mg. * Patient had a JOURDAN performed last admitted, which showed no embolic source. * Recommend event monitor placement prior to discharge to rule out paroxysmal atrial fibrillation. Cardiology has been consulted for possible loop recorder placement. * Recommend complete tobacco cessation. Patient still smoking 4-5 cigarettes per day.
[2021-09-13 16:35] LABS: Glucose,Whole Blood 142 mg/dL (70-110)
[2021-09-13 17:34] LABS: Glucose,Whole Blood 138 mg/dL (70-110)
[2021-09-13 20:33] LABS: Glucose,Whole Blood 198 mg/dL (70-110)
[2021-09-14] MEDS: HYDROcodone/APAP 7.5-325MG 1 EACH TAB PO PRN ×2 (02:58→11:14)
[2021-09-14 05:00] VITALS: RESP 16; TEMP 97.9
[2021-09-14] MEDS ORDERED: levETIRAcetam 500 MG TAB PO SCH (05:00)
[2021-09-14 05:32] LABS: Basophils # (A) 0.1 k/uL (0-0.2); Basophils % (A) 1 %; Eosinophils % (A) 0 %; HCT 30.7 % (39.0-53.0); HGB 10.3 gm/dL (13.0-17.5); Lymphocytes # (A) 1.2 k/uL (1.0-4.8); Lymphocytes % (A) 17 %; MCH 34.3 pg (25.0-35.0); MCHC 33.5 g/dL (31.0-37.0); MCV 102.4 fL (80.0-100.0); Macrocytosis Slight; Mean Platelet Volume 8.3; Monocytes # (A) 0.7 k/uL (0-1.0); Monocytes % (A) 10 %; Neutrophils # (A) 5.1 k/uL (1.3-7.7); Neutrophils % (A) 71 %; Platelet Count 242 k/uL (150-450); RBC 2.99 m/uL (4.30-5.90); RDW 13.3 % (11.5-15.5); WBC 7.2 k/uL (3.8-10.6)
[2021-09-14 05:41] LABS: African American GFR (CKD) >90 (>60 ml/min/1.73 sqM); Anion Gap 3 mmol/L; Blood Urea Nitrogen 13 mg/dL (9-20); Calcium 7.2 mg/dL (8.4-10.2); Carbon Dioxide 24 mmol/L (22-30); Chloride 111 mmol/L (98-107); Glucose 93 mg/dL (74-99); Magnesium 1.8 mg/dL (1.6-2.3); Non-African American GFR(CKD) >90 (>60 ml/min/1.73 sqM); Potassium 3.5 mmol/L (3.5-5.1); Sodium 138 mmol/L (137-145)
[2021-09-14 06:22] LABS: Glucose,Whole Blood 99 mg/dL (70-110)
[2021-09-14] MEDS: INSULIN ASPART (NovoLOG) 100 UNIT/ML VIAL SQ SCH ×2 (06:28→12:26)
[2021-09-14] MEDS: PANTOPRAZOLE 40 MG TABLET PO SCH (06:29)
[2021-09-14] MEDS: IPRATROPIUM-ALBUTEROL 3 ML NEB INHALATION SCH ×3 (07:38→16:00)
[2021-09-14] MEDS: SYMBICORT 80-4.5 MCG INHALER INHALATION SCH (07:38)
[2021-09-14] MEDS: LOSARTAN 25 MG TAB PO SCH (08:16)
[2021-09-14] MEDS: CLOPIDOGREL 75 MG TAB PO SCH (08:16)
[2021-09-14] MEDS: ATORVASTATIN 40 MG TAB PO SCH (08:16)
[2021-09-14] MEDS: METOPROLOL SUCCINATE (ER) 25 MG TAB.ER.24H PO SCH (08:16)
[2021-09-14] MEDS: predniSONE 20 MG TAB PO SCH (08:16)
[2021-09-14] MEDS: NICOTINE 14MG/24HR PATCH TRANSDERM SCH (08:17)
[2021-09-14] MEDS: FOLIC ACID-VIT B COMPLEX-VIT C 1 CAP PO SCH (08:21)
[2021-09-14] MEDS ORDERED: ASPIRIN 81 MG PO SCH (09:00)
--- NOTE | 2021-09-14 10:30 | P.DS ---
Providers Date of admission: 09/11/21 16:02 Expected date of discharge: 09/14/21 Attending physician: Ivan Elliott Consults: 09/11/21 16:03 Consult Physician Routine Consulting Provider: Dianne Leonard Consult Reason/Comments: New-onset stroke, TIA Do you want consulting provider notified?: Yes 09/11/21 16:39 Consult Physician Routine Consulting Provider: Cha Silver Consult Reason/Comments: Stenosis of the brachiocephalic artery Do you want consulting provider notified?: Yes 09/12/21 14:48 Consult Physician Routine Consulting Provider: Sundar Mike Consult Reason/Comments: eval for ipr Do you want consulting provider notified?: Yes 09/13/21 11:17 Consult Physician Routine Consulting Provider: Fransisco George Consult Reason/Comments: recorder placement for occult afib Do you want consulting provider notified?: Yes Primary care physician: Aguilar Thurston - Discharge Diagnosis(es) (1) New onset seizure Current Visit: Yes Status: Acute (2) TIA (transient ischemic attack) Current Visit: Yes Status: Acute (3) H/O: CVA (cerebrovascular accident) Current Visit: Yes Status: Acute (4) Right hemiplegia Current Visit: Yes Status: Acute (5) Dysarthria Current Visit: Yes Status: Acute (6) Former consumption of alcohol Current Visit: Yes Status: Acute (7) CAD (coronary artery disease) Current Visit: Yes Status: Acute (8) COPD (chronic obstructive pulmonary disease) Current Visit: No Status: Acute (9) History of partial colectomy Current Visit: No Status: Acute (10) Rash and nonspecific skin eruption Current Visit: Yes Status: Acute Hospital Course: This is a 75-year-old gentleman with past medical history of recent subacute ischemic left frontal parietal junction stroke suspected embolic by nature with involuntary spasticity, jerking of right lower extremity, probably athetoid movement- EEG reporting no epileptiform activity in July ;CAD, hypertension, hyperlipidemia, nicotine-cut down to 1 pack per day and alcohol abuse-reports no alcohol in 2 months, recent cardiac catheterization, April 2020 with 85% proximal to mid LAD involving diagonal 1, successful PCI of proximal to mid LAD with angioplasty of diagonal 1 and LAD, mild to moderate disease elsewhere including 50% and mid LAD and 30-40% proximal RCA-recommending maximizing medical treatment of proximal RCA and mid LAD, brought into the ER by Ambulance.Per ER records,Family reported his chronic right sided weakness appeared increased, as he was leaning more to the right , followed by seizure activity lasting 10 minutes. EMS witnessed another seizure episode and administered Versed ( EMS records currently unavailable). Denies any incontinence. Denies chest pain, palpitations or shortness of breath. Denies any nausea vomiting or abdominal pain. Denies lightheadedness, dizziness or focal deficits. Denies headaches. Brain CT reported no acute intracranial h emorrhage or midline shift, mild diffuse cerebral atrophy and chronic small vessel ischemic changes redemonstrated, subacute infarct high parietal lobe redemonstrated, worsening paranasal sinus disease. 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 ( Previous Carotid Doppler 08/07/21: Parvus tardus waveforms of the right carotid system suggesting distal stenosis, CTA Angio chest/neck reported [id number] 60- 70% proximal right internal carotid artery stenosis with no surgical intervention recommended per vascular surgery.)Chest x-ray reporting mild hyperinflation, possible underlying COPD, kyphosis, no definite acute process. EKG reported sinus rhythm, troponin negative. Afebrile, normal WBC, hemoglobin 12, platelets 278. Magnesium 1.0. Renal function stable, serum alcohol negative. 09/13/21: Overnight patient is remaining afebrile. Heart rate remained stable. Oxygenation is normal. Magnesium is 1.9. Other labs are pending. Updated EEG shows that was abnormal with bitemporal slowing left more than right. Neurology consult reviewed. They recommended an event monitor to evaluate for occult atrial fibrillation. Vascular surgery to see him regarding the 95% stenosis at the brachiocephalic artery extending from 10 mm. They're planning outpatient treatment. 09/14/2021: Patient is remained febrile. He remains on Keppra per neurology for new onset seizures. Vitals have remained stable overnight. Labs show a hypocalcemia of 7.2. Cardiology has seen him regarding a loop recorder and we'll plan this outpatient this coming week. Neurology will evaluate him before discharge today. Prescriptions for all his medications were given. I confirmed that he did [facility] and I was of sufficient seen him there. I clearly see in the discharge notes [facility] the [facility] he was given these prescriptions. On my discussions with Anibal he indicated his family history "screwed up her medications". I discussed with him that we will have home care look at this closer, to confirm he is getting the proper medications. We discussed several days ago about him returning to [facility] on the leg, but he refused adamantly "I just want to go home". He has made it quite improvements with his right-sided hemiplegia. It appears the strength in his right hand has almost returned to normal. He still has some mild weakness to the right lower extremity. He is walking with a walker with wheels. He indicates currently at home he can get around without any mobility device. We discussed following a hip fracture is a risk that he should use whatever the physical therapist recommended. He will take his current medications as prescribed along with [id number] Tums/calcium carbonate, one extra strength 750 mg tablet daily Patient Condition at Discharge: Fair Plan - Discharge Summary Discharge Rx Participant: No New Discharge Prescriptions: New levETIRAcetam [Keppra] 500 mg PO Q12H #60 tab Clopidogrel [Plavix] 75 mg PO DAILY #30 tab predniSONE See Taper PO DAILY #30 tab Aspirin 81 mg PO DAILY 6 Days #30 tab Nicotine 14Mg/24Hr Patch [Habitrol] 1 patch TRANSDERM DAILY #30 patch Atorvastatin [Lipitor] 40 mg PO DAILY #30 tab Folic Acid-Vit B Complex-Vit C [Nephrocaps] 1 each PO DAILY #30 cap Continue Acetaminophen Tab [Tylenol] 650 mg PO Q6HR PRN tab PRN Reason: Fever and/ or Mild Pain Metoprolol Succinate (ER) [Toprol XL] 25 mg PO DAILY #30 tab HYDROcodone/APAP 7.5-325MG [[place] 7.5-325] 0.5 - 1 tab PO Q4H PRN PRN Reason: Pain Losartan [Cozaar] 25 mg PO DAILY #30 tab Pantoprazole [Protonix] 40 mg PO AC-BRKFST #30 tab Discontinued Amitriptyline HCl [Elavil] 10 mg PO HS tab Atorvastatin [Lipitor] 10 mg PO HS tab Discharge Medication List Acetaminophen Tab [Tylenol] 650 mg PO Q6HR PRN tab 08/15/21 [Rx] HYDROcodone/APAP 7.5-325MG [[place] 7.5-325] 0.5 - 1 tab PO Q4H PRN 09/11/21 [History] Aspirin 81 mg PO DAILY 6 Days #30 tab 09/14/21 [Rx] Atorvastatin [Lipitor] 40 mg PO DAILY #30 tab 09/14/21 [Rx] Clopidogrel [Plavix] 75 mg PO DAILY #30 tab 09/14/21 [Rx] Folic Acid-Vit B Complex-Vit C [Nephrocaps] 1 each PO DAILY #30 cap 09/14/21 [Rx] Losartan [Cozaar] 25 mg PO DAILY #30 tab 09/14/21 [Rx] Metoprolol Succinate (ER) [Toprol XL] 25 mg PO DAILY #30 tab 09/14/21 [Rx] Nicotine 14Mg/24Hr Patch [Habitrol] 1 patch TRANSDERM DAILY #30 patch 09/14/21 [Rx] Pantoprazole [Protonix] 40 mg PO AC-BRKFST #30 tab 09/14/21 [Rx] levETIRAcetam [Keppra] 500 mg PO Q12H #60 tab 09/14/21 [Rx] predniSONE See Taper PO DAILY #30 tab 09/14/21 [Rx] Follow up Appointment(s)/Referral(s): Aguilar Thurston Jr, DO [Primary Care Provider] - 1-2 days Ab Bojorquez DO [STAFF PHYSICIAN] - 1 Week Yosef Bender DO [STAFF PHYSICIAN] - 3 Days [facility], [NON-STAFF] - 1-2 Days Patient Instructions/Handouts: Seizure/Epilepsy Discharge Instructions & Follow-Up Discharge Disposition: HOME SELF-CARE
[2021-09-14 11:36] LABS: Glucose,Whole Blood 83 mg/dL (70-110)
[2021-09-14 12:29] VITALS: BP 109/69
--- NOTE | 2021-09-14 12:39 | P.PN ---
Subjective Progress Note Date: 09/14/21 Patient examined today sitting in bed resting heart rhythm with no signs of acute distress. He denies chest pain or increasing shortness of breath. Vital signs are stable. It is recommended that patient follow-up outpatient for loop recorder due to recurrent CVA.. Patient is awaiting discharge his afternoon Objective - Vital Signs Vital signs: Vital Signs Temp 97.9 F 09/14/21 04:59 Pulse 100 09/14/21 08:00 Resp 16 09/14/21 08:00 BP 121/77 09/14/21 08:00 Pulse Ox 96 09/14/21 08:00 FiO2 Intake & Output 09/13/21 09/14/21 09/14/21 18:59 06:59 18:59 Output Total 300 300 Balance -300 -300 Output: Urine 300 200 Stool 100 Other: Voiding Method Urinal Urinal - Exam PHYSICAL EXAM: VITAL SIGNS: Reviewed. GENERAL: Well-developed in no acute distress. HEENT: Head is normocephalic. Pupils are equal, round. Sclerae anicteric. Mucous membranes of the mouth are moist. NECK: Supple. No JVD or thyromegaly RESPIRATORY: Respirations even and unlabored. Lungs diminished to auscultation bilaterally. CARDIO: Regular rate and rhythm. S1 and S2 heard. No murmur or gallops. EXTREMITIES: Normal range of motion. No clubbing or cyanosis. Peripheral pulses intact. Negative for bilateral lower extremity edema NEURO: Orientated to person, time, mood is appropriate - Labs CBC & Chem 7: 09/14/21 04:29 09/14/21 04:29 Labs: Abnormal Lab Results - Last 24 Hours (Table) 09/13/21 09/13/21 09/13/21 Range/Units 16:34 17:32 20:31 RBC (4.30-5.90) m/uL Hgb (13.0-17.5) gm/dL Hct (39.0-53.0) % MCV (80.0-100.0) fL Chloride (98-107) mmol/L POC Glucose (mg/dL) 142 H 138 H 198 H (70-110) mg/dL Calcium (8.4-10.2) mg/dL 09/14/21 09/14/21 Range/Units 04:29 04:29 RBC 2.99 L (4.30-5.90) m/uL Hgb 10.3 L (13.0-17.5) gm/dL Hct 30.7 L (39.0-53.0) % MCV 102.4 H (80.0-100.0) fL Chloride 111 H (98-107) mmol/L POC Glucose (mg/dL) (70-110) mg/dL Calcium 7.2 L (8.4-10.2) mg/dL Assessment and Plan Assessment: Recurrent cerebrovascular accident Coronary artery disease status post angioplasty Hypertension Dyslipidemia Plan: Patient will undergo a loop recorder outpatient to rule out cardiac source of t hromboembolic phenomenon Continue with all current cardiac medications The above impression and plan of care have been discussed and directed by the signing physician. Ghazal Kelly, nurse practitioner, acting as scribe for signing physician.
[2021-09-14 16:15] VITALS: PULSE 84
--- NOTE | 2021-09-15 02:04 | P.PN ---
Subjective Progress Note Date: 09/14/21 This is a telemedicine neurology follow performed today on 09/14/2021. Patient was seen for a follow-up. Patient is sitting comfortably on his bed. No seizures since admission. Denies any new neurological symptoms. Patient states his right arm is doing well. No seizures reported. Spoke to patient's daughter Heather, who manages patient's medication. Apparently after the last admission, patient was transferred to rehabilitation facility where he stayed for 10 days. He was discharged home from rehabilitation facility to his home on no antiplatelet medication. Patient was not taking aspirin. Patient's daughter states that her brother witnessed a full body convulsion prior to arrival to the ER. It lasted for over 10 minutes. Objective - Vital Signs Vital signs: Vital Signs Temp 97.9 F 09/14/21 04:59 Pulse 78 09/14/21 11:40 Resp 16 09/14/21 12:00 BP 109/69 09/14/21 12:00 Pulse Ox 95 09/14/21 12:00 FiO2 Intake & Output 09/13/21 09/14/21 09/14/21 18:59 06:59 18:59 Output Total 300 300 Balance -300 -300 Output: Urine 300 200 Stool 100 Other: Voiding Method Urinal Urinal Urinal - Exam Patient is alert and awake in no distress. Detail examination deferred. 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 His right arm mobility has improved. - Labs CBC & Chem 7: 09/14/21 04:29 09/14/21 04:29 Labs: Abnormal Lab Results - Last 24 Hours (Table) 09/13/21 09/13/21 09/13/21 Range/Units 16:34 17:32 20:31 RBC (4.30-5.90) m/uL Hgb (13.0-17.5) gm/dL Hct (39.0-53.0) % MCV (80.0-100.0) fL Chloride (98-107) mmol/L POC Glucose (mg/dL) 142 H 138 H 198 H (70-110) mg/dL Calcium (8.4-10.2) mg/dL 09/14/21 09/14/21 Range/Units 04:29 04:29 RBC 2.99 L (4.30-5.90) m/uL Hgb 10.3 L (13.0-17.5) gm/dL Hct 30.7 L (39.0-53.0) % MCV 102.4 H (80.0-100.0) fL Chloride 111 H (98-107) mmol/L POC Glucose (mg/dL) (70-110) mg/dL Calcium 7.2 L (8.4-10.2) mg/dL Assessment and Plan Assessment: * New onset seizure. Rule out TIA. * Recent history of acute stroke involving bilateral hemispheric region (L>R)involving watershed territory. Repeat MRI showed no new ischemic lesion. * Tension-type headaches * History of concussions * CAD * History of alcohol abuse, sober since last 2 months * Tobacco use, still smokes 4-5 cigarettes per day. Plan: * MRI of the brain was performed, which revealed similar exam compared to 08/11/2021 with infarcts in the similar distribution involving the left pa rietal and left posterior frontal lobe. Additional foci seen within the deep white matter involving both frontal lobes and right parietal lobes are also not significantly changed and likely represent embolic phenomenon. No definitive new areas of infarct visualized. I personally reviewed MRI of the brain, and it appears that the abnormal signal on DWI and ADC mapping is still present, not resolved yet. I reviewed MRI of the brain with Dr. España, neuroradiologist, who agreed that there is no new infarct. * After speaking to patient's daughter Heather, it appears patient was not taking any antiplatelet medication at home (after discharge from rehabilitation facility on 08/25/2021). He will be resumed on aspirin 81 mg and Plavix 75 mg daily. 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 * EEG was abnormal due to bitemporal slowing, left more than right. This is suggestive of focal cortical neuronal dysfunction and may suggest an underlying structural abnormality. Some sharply contoured waves were seen in the left temporal region, and therr morphology did not appear clearly epileptiform. This study was technically limited because of second half of the study had a continuous myogenic artifact seen in bilateral frontal temporal region. Suggest a prolonged, sleep deprived EEG for further evaluation if your suspicion for seizures is high. * Patient tolerating Keppra 500 mg twice a day for seizure prophylaxis. * CTA of head and neck revealed more than 95% stenosis of the proximal portion of the brachiocephalic artery extending for about 10 mm. Recommend vascular surgical consultation. No other significant stenosis, occlusion, dissection or aneurysm. * Vascular surgery input appreciated. Recommending dual antiplatelet medication, statins and outpatient follow-up in vascular surgery clinic. * Lipid panel with cholesterol 136, LDL 60, HDL 53 and triglycerides 113. Patient was on Lipitor 10 mg, agree with increasing dose to 40 mg. * Patient had a JOURDAN performed last admitted, which showed no embolic source. * Cardiology following, recommending loop recorder placement as an outpatient. * Recommend complete tobacco cessation. Patient still smoking 4-5 cigarettes per day. * Neurologically clear for discharge. Recommend follow-up with neurologist as an outpatient in 2-4 weeks.
== END 2021-09-14 16:59 | disposition home or self-care (01) | DRG 101 ==
LOC: EC 12:56 → 3SCARD 16:02
PROVIDERS: ADMIT Family Medicine; ATTEND Family Medicine
DX: R56.9 Unspecified convulsions (principal); E44.0 Moderate protein-calorie malnutrition; R64 Cachexia; I47.2 Ventricular tachycardia; G45.9 Transient cerebral ischemic attack, unspecified; I69.351 Hemiplegia and hemiparesis following cerebral infarction affecting right dominant side; Z68.1 Body mass index [BMI] 19.9 or less, adult; E83.51 Hypocalcemia; I48.91 Unspecified atrial fibrillation; M06.9 Rheumatoid arthritis, unspecified; G31.9 Degenerative disease of nervous system, unspecified; J44.9 Chronic obstructive pulmonary disease, unspecified; I65.23 Occlusion and stenosis of bilateral carotid arteries; I70.8 Atherosclerosis of other arteries; E83.42 Hypomagnesemia; I10 Essential (primary) hypertension; E78.5 Hyperlipidemia, unspecified; F32.A Depression, unspecified; G44.209 Tension-type headache, unspecified, not intractable; I25.2 Old myocardial infarction; I25.10 Atherosclerotic heart disease of native coronary artery without angina pectoris; L27.1 Localized skin eruption due to drugs and medicaments taken internally; T43.015A Adverse effect of tricyclic antidepressants, initial encounter; R47.1 Dysarthria and anarthria; F10.11 Alcohol abuse, in remission; F17.210 Nicotine dependence, cigarettes, uncomplicated; Z71.6 Tobacco abuse counseling; Z79.899 Other long term (current) drug therapy; Z85.828 Personal history of other malignant neoplasm of skin; Z90.49 Acquired absence of other specified parts of digestive tract; Z87.19 Personal history of other diseases of the digestive system; Z86.69 Personal history of other diseases of the nervous system and sense organs; Z90.79 Acquired absence of other genital organ(s); Z95.5 Presence of coronary angioplasty implant and graft; Z98.890 Other specified postprocedural states; Z71.3 Dietary counseling and surveillance; Z91.030 Bee allergy status; Z80.3 Family history of malignant neoplasm of breast; Z87.820 Personal history of traumatic brain injury
CPT/HCPCS: 36415; 70450; 70496; 70498; 70551; 71046; 80048; 80053; 80061; 80320; 83735; 84484; 85025; 85610; 85730; 93005; 94640; 94760; 95816; 96361; 96374; 99291

== ENCOUNTER → 2021-10-06 | Day surgery (SDC) | payer MEDICARE, BC ==
[2021-10-01 15:51] VITALS: BMI 17.9
[~2021-10-06] MED LIST changes: +ASPIRIN 81 MG PO SCH; +HYDROcodone/APAP 7.5-325MG 1 EACH TAB ONE; +IOPAMIDOL-250 100ML BTL INTRAARTER ONE; -LACTATED RINGERS 1,000 ML IV SCH; -LIDOCAINE 1% (10MG/ML) FOR IV START INTRADERMA PRN; +LIDOCAINE 1% INJ 10MG/ML (30 ML VIAL-PF) SQ ONE; +LOSARTAN 25 MG TAB PO SCH; +METOPROLOL SUCCINATE (ER) 25 MG TAB.ER.24H PO SCH; +MIDAZOLAM 2 MG/2 ML VIAL IV ONE; +MIDAZOLAM 2 MG/2 ML VIAL ONE; +PROPOFOL 10 MG/ML 20 ML VIAL IV ONE; +SODIUM CHLORIDE 0.9% 1,000 ML IV ONE; +SODIUM CHLORIDE 0.9% 1,000 ML IV SCH; +SODIUM CHLORIDE 0.9% 1,000 ML in EMPTY BAG 1 BAG IV ONE; +ceFAZolin 1 GM in SODIUM CHLORIDE 0.9% IRRIG BTL 250 ML IRRIGATION PRN; +fentaNYL (PF) 50 MCG/ML 2 ML AMP IV ONE; +fentaNYL (PF) 50 MCG/ML 2 ML AMP ONE; +levETIRAcetam 500 MG TAB PO SCH
[2021-10-06 07:13] VITALS: TEMP 98.7
--- NOTE | 2021-10-06 07:59 | P.PCN ---
Description of Procedure: Procedure: Insertion of Linq loop recorder Indication: Cryptogenic stroke CONSENT:I have discussed the risks, benefits and alternative therapies for the above-mentioned procedure. The patient has indicated understanding and acceptance of the risks and procedures discussed. PROCEDURE: Patient was brought to the catheterization lab in a fasting state. Patient was prepped and draped in the usual fashion. 1% lidocaine was used to anesthetize the area of the left third intercostal space. Using the loop recorder incision device, a small 0.5 cm incision was made in the left 3rd intercostal space. Next the Linq loop recorder was deployed in the 3rd intercostal space subcutaneously using the insertion tool. Thresholds were ch ecked and were excellent at 0.16 V. Next the incision was closed using Dermabond. Steristrips were placed over the incision and the procedure was completed. The patient tolerated the procedure well. The patient was transported to the post cath holding area in stable condition. Linq loop recorder serial number: [id number]
[2021-10-06 08:09] VITALS: RESP 16
--- NOTE | 2021-10-06 10:13 | P.OP ---
Date of Procedure: 10/06/21 Preoperative Diagnosis: Hemodynamically severe right innominate artery stenosis. Postoperative Diagnosis: Same. Procedure(s) Performed: #1: Ultrasound-guided cannulation right brachial artery. #2: Right upper extremity angiogram. #3: Balloon dilation right innominate artery utilizing 7 mm balloon dilation catheter. Implants: None. Anesthesia: MAC Surgeon: Addison Charlton Estimated Blood Loss (ml): 10 Pathology: none sent Condition: stable Disposition: no change Indications for Procedure: Patient is a 76-year-old male who recently was admitted for evaluation and treatment of neurologic symptoms. During this hospitalization was found be suffering from hemodynamically severe right innominate artery stenosis. Physical examination demonstrated approximately 30 mm gradient between the right and left upper extremity systolic blood pressures. Because of his symptoms and degree of systolic discrepancy between the 2 upper excised patient is offered percutaneous intervention. The procedure, risk and benefits were discussed with the patient. Description of Procedure: Patient was brought to the special procedure suite. Right upper extremity was sterilely prepped and draped in usual manner. Patient did receive intravenously administered moderate conscious sedation administered by the department anesthesiology as he had just undergone placement of a loop recorder by cardiology. Utilizing ultrasound the right brachial artery was identified. This was nonpulsatile as to be expected. 1% Xylocaine was utilized for local anesthesia of the tissues overlying the brachial artery. Through this anesthetized area an d with the aid of ultrasound a micropuncture needle was utilized to cannulate the artery. Once cannulated Softip guidewire was advanced into the artery. The needle was withdrawn and a micropuncture sheath and dilator advanced over the guidewire. Guidewire and dilator were withdrawn. A 0.035 inch J-tipped guidewire was advanced. The sheath was withdrawn and exchanged for a 6-Kiswahili sheath. Angled glide wire was advanced through the stenosis into the descending thoracic aorta. Angled glide catheter was advanced over the guidewire. The guidewire was then withdrawn and angiography was performed demonstrating the aforementioned high-grade stenosis. Utilizing roadmapping technique the guidewire was advanced through the stenosis and the glide catheter was withdrawn. A 7 mm x 40 mm balloon antroplasty catheter was selected and utilized to balloon dilate the stenosis. Completion angiogram demonstrated good post dilation result with no evidence of residual stenosis. With the above findings noted the sheath was then withdrawn and pressure was held at the puncture site until all evidence of bleeding ceased. Patient tolerated procedure well and was taken to the outpatient area in s atisfactory and stable condition. Total fluoroscopy time 2.7 minutes. Total contrast volume 50 ML's of Isovue 250. Plan - Discharge Summary Discharge Rx Participant: Yes New Discharge Prescriptions: No Action levETIRAcetam [Keppra] 500 mg PO Q12H #60 tab Clopidogrel [Plavix] 75 mg PO DAILY #30 tab Melatonin 2.5 mg PO HS Calcium Carb/Magnesium Hydrox [Rolaids Ultra 1000-200 mg Chew] 1 each PO DAILY HYDROcodone/APAP 7.5-325MG [[place] 7.5-325] 0.5 - 1 tab PO Q4H PRN PRN Reason: Pain Aspirin 81 mg PO DAILY 6 Days #30 tab Pantoprazole [Protonix] 40 mg PO AC-BRKFST #30 tab Metoprolol Succinate (ER) [Toprol XL] 25 mg PO QAM Losartan Potassium [Cozaar] 25 mg PO QAM guaiFENesin [Mucinex] 600 mg PO Q12H Pravastatin Sodium [Pravachol] 40 mg PO DAILY Rimegepant Sulfate [Nurtec Odt] 75 mg PO DAILY Acetaminophen [Tylenol Extra Strength] 500 mg PO DIRECTED PRN PRN Reason: Pain Discharge Medication List HYDROcodone/APAP 7.5-325MG [[place] 7.5-325] 0.5 - 1 tab PO Q4H PRN 09/11/21 [History] Aspirin 81 mg PO DAILY 6 Days #30 tab 09/14/21 [Rx] Clopidogrel [Plavix] 75 mg PO DAILY #30 tab 09/14/21 [Rx] Pantoprazole [Protonix] 40 mg PO AC-BRKFST #30 tab 09/14/21 [Rx] levETIRAcetam [Keppra] 500 mg PO Q12H #60 tab 09/14/21 [Rx] Acetaminophen [Tylenol Extra Strength] 500 mg PO DIRECTED PRN 10/01/21 [History] Calcium Carb/Magnesium Hydrox [Rolaids Ultra 1000-200 mg Chew] 1 each PO DAILY 10/01/21 [History] Losartan Potassium [Cozaar] 25 mg PO QAM 10/01/21 [History] Melatonin 2.5 mg PO HS 10/01/21 [History] Metoprolol Succinate (ER) [Toprol XL] 25 mg PO QAM 10/01/21 [History] Pravastatin Sodium [Pravachol] 40 mg PO DAILY 10/01/21 [History] Rimegepant Sulfate [Nurtec Odt] 75 mg PO DAILY 10/01/21 [History] guaiFENesin [Mucinex] 600 mg PO Q12H 10/01/21 [History]
--- NOTE | 2021-10-06 11:14 | IR ---
IR [employer] SK[employer]S EDUCATOR brachiocephalic Total fluoroscopy time 2.7 minutes. A total of 135 fluoroscopic images were obtained.
[2021-10-06 14:04] VITALS: BP 112/72; PULSE 72
== END ==
LOC: CATHCVL 06:28
PROVIDERS: ATTEND Surgery
DX: I77.1 Stricture of artery (principal); Z86.73 Personal history of transient ischemic attack (TIA), and cerebral infarction without residual deficits; I25.10 Atherosclerotic heart disease of native coronary artery without angina pectoris; I11.9 Hypertensive heart disease without heart failure; F32.A Depression, unspecified; Z20.822 Contact with and (suspected) exposure to COVID-19; M06.9 Rheumatoid arthritis, unspecified; F17.210 Nicotine dependence, cigarettes, uncomplicated; R56.9 Unspecified convulsions; F10.11 Alcohol abuse, in remission; Z86.718 Personal history of other venous thrombosis and embolism; Z87.19 Personal history of other diseases of the digestive system; Z85.828 Personal history of other malignant neoplasm of skin; I25.2 Old myocardial infarction; Z90.49 Acquired absence of other specified parts of digestive tract; Z95.5 Presence of coronary angioplasty implant and graft; Z98.890 Other specified postprocedural states; Z80.3 Family history of malignant neoplasm of breast; Z79.02 Long term (current) use of antithrombotics/antiplatelets; Z79.82 Long term (current) use of aspirin; Z79.52 Long term (current) use of systemic steroids; Z79.899 Other long term (current) drug therapy; Z91.030 Bee allergy status
CPT/HCPCS: 33285; 87635; C1894; C1769 ×4; C1725; C1764; J2250; J0690; J2001; J3010; J2704; Q9966; 36200; 75710

== ENCOUNTER 2021-11-03 18:13 | Inpatient (IN) | payer MEDICARE, BC ==
[2021-11-03] MEDS ORDERED: HYDROcodone/APAP 5-325MG 1 EACH TAB PO STA (19:12)
--- NOTE | 2021-11-03 19:29 | ED ---
Fall HPI - General Chief Complaint: Fall Stated Complaint: fell, tremors Time Seen by Provider: 11/03/21 19:12 Source: patient, family Mode of arrival: wheelchair - History of Present Illness Initial Comments: This is a resident 76-year-old male who had a mechanical fall at home. Patient unsure whether he lost consciousness. Patient lives by himself and is on Plavix . Although, his son has been staying with him but had to go away for the weekend. Apparently the patient struck his head. Patient recalls the entire injury. There is no loss of consciousness. Patient had a stroke in the spring and has had residual symptomology related to this. Patient complaining of pain to the left side of his head and left neck area. Patient has residual right- sided weakness from a remote stroke. Some increased confusion noted by family members HEAD injury with subsequent headache, no fever or chills, no changes in vision or hearing, no sore throat or difficulty with speech, no neck pain, no chest pain or shortness of breath, no abdominal pain, no nausea or vomiting, no changes in urination or bowel movements, no numbness or tingling, no extremity pain, no skin rashes or lesions. Past medical, surgical, social, and family history reviewed. MD Complaint: fall - Related Data Home Medications Medication Instructions Recorded Confirmed Losartan Potassium [Cozaar] 25 mg PO DAILY 10/01/21 11/03/21 Metoprolol Succinate (ER) [Toprol 25 mg PO DAILY 10/01/21 11/03/21 XL] Pravastatin Sodium [Pravachol] 40 mg PO HS 10/01/21 11/03/21 Melatonin 3 mg PO HS 11/03/21 11/03/21 Pantoprazole Sodium [Protonix] 20 mg PO DAILY 11/03/21 11/03/21 SUMAtriptan succinate 50 mg PO DAILY 11/03/21 11/03/21 Previous Rx's Medication Instructions Recorded Aspirin 81 mg PO DAILY 6 Days #30 tab 09/14/21 Clopidogrel [Plavix] 75 mg PO DAILY #30 tab 09/14/21 levETIRAcetam [Keppra] 500 mg PO Q12H #60 tab 09/14/21 Allergies Allergy/AdvReac Type Severity Reaction Status Date / Time venom-honey bee Allergy Anaphylaxis Verified 11/03/21 21:27 [bee venom (honey bee)] Review of Systems ROS Statement: Those systems with pertinent positive or pertinent negative responses have been documented in the HPI. ROS Other: All systems not noted in ROS Statement are negative. Past Medical History Past Medical History: Coronary Artery Disease (CAD), Cancer, Chest Pain / Angina, COPD, CVA/TIA, Dementia, Hearing Disorder / Deafness, Hypertension, Myocardial Infarction ([place]), Rheumatoid Arthritis (RA), Seizure Disorder Additional Past Medical History / Comment(s): SKIN CANCER ON NOSE. DIVERTI CULITIS. HX PA's X2. 08/17 stroke with residual right side weakness and limited mobility, speech difficulty. Memory problems from multiple concusions related to alcohol abuse/falls. New onset seizures possibly related to dehydration 09/11/21, none since. 12/06 toes have ingrown toenails. Early stages of Alzheimers. "Underlying Emphysema". Skin bruised. Current decreased urinary output/small amount of burning with urination - advised to follow up with PCP. Recent weight loss. Hard of hearing. Last Myocardial Infarction Date:: Unknown History of Any Multi-Drug Resistant Organisms: None Reported Past Surgical History: Bowel Resection, Cholecystectomy, Heart Catheterization With Stent Additional Past Surgical History / Comment(s): RETINAL DETACHMENT REPAIR (6 ON LEFT, 1 ON RIGHT), TESTICLE REMOVED, unknown how many stents, broken collar bone surgery. Past Anesthesia/Blood Transfusion Reactions: No Reported Reaction Date of Last Stent Placement:: 2019 Past Psychological History: Depression Smoking Status: Current every day smoker Past Alcohol Use History: Abuse Past Drug Use History: None Reported - Past Family History Daughter(s) Family Medical History: Cancer Additional Family Medical History / Comment(s): Breast cancer. General Exam - General Exam Comments Initial Comments: Vital signs reviewed. Patient does not appear to have any acute neurological impairment. Cranial nerves II through XII are intact. General appearance: alert, in no apparent distress Head exam: Present: normocephalic, normal inspection, other (No definitive trauma. Patient does have tenderness to the left temporal area, left malar area and left neck musculature.) Eye exam: Present: normal appearance, PERRL, EOMI. Absent: scleral icterus, conjunctival injection, periorbital swelling ENT exam: Present: normal exam, normal oropharynx, mucous membranes moist, normal external ear exam. Absent: mucous membranes dry Neck exam: Present: normal inspection, tenderness (Left neck musculature), full ROM. Absent: meningismus, lymphadenopathy Respiratory exam: Present: normal lung sounds bilaterally. Absent: respiratory distress, wheezes, rales, rhonchi, stridor, chest wall tenderness, accessory muscle use Cardiovascular Exam: Present: regular rate, normal rhythm, normal heart sounds. Absent: systolic murmur, diastolic murmur, rubs, gallop, clicks GI/Abdominal exam: Present: soft, normal bowel sounds. Absent: distended, tenderness, guarding, rebound, rigid Extremities exam: Present: normal inspection, full ROM, normal capillary refill. Absent: tenderness, pedal edema, joint swelling, calf tenderness Back exam: Present: normal inspection Neurological exam: Present: alert, oriented X3, CN II-XII intact, other (Re sidual right sided paresis from remote stroke, gait not tested due to pain). Absent: altered (Patient appears to be alert and oriented.), motor sensory deficit (Generalized tremor noted) Psychiatric exam: Present: normal affect, normal mood Skin exam: Present: warm, dry, intact, normal color. Absent: rash Course Vital Signs 11/03/21 11/03/21 18:18 20:31 Temperature 98.2 F Pulse Rate 95 68 Respiratory 18 18 Rate Blood Pressure 118/72 112/78 O2 Sat by Pulse 99 99 Oximetry - Reevaluation(s) Reevaluation #1: 11/03/21 21:17 And found to be low on magnesium and potassium. Electrolyte replacement initiated. We'll call the primary care physician. - Consultations Consultation #1: Case discussed with Dr. Elliott for admission Medical Decision Making - Medical Decision Making Family requesting rehabilitation plate medicine as the patient cannot walk safely. Patient has had multiple falls including today. Patient cannot ambulate safely. The patient's tremor, generalized weakness, this does raise a suspicion of electrolyte disorder or infectious process. General weakness workup initiated. When for admission, reevaluation. We'll discuss with ED attending physician as well as the patient's admitting physician. - Lab Data Result diagrams: 11/03/21 20:43 11/03/21 20:43 Lab Results 11/03/21 11/03/21 11/03/21 Range/Units 20:43 20:43 20:43 WBC 12.9 H (3.8-10.6) k/uL RBC 3.60 L (4.30-5.90) m/uL Hgb 12.1 L (13.0-17.5) gm/dL Hct 36.6 L (39.0-53.0) % MCV 101.6 H (80.0-100.0) fL MCH 33.5 (25.0-35.0) pg MCHC 33.0 (31.0-37.0) g/dL RDW 13.5 (11.5-15.5) % Plt Count 270 (150-450) k/uL MPV 8.4 Neutrophils % 72 % Lymphocytes % 16 % Monocytes % 8 % Eosinophils % 1 % Basophils % 0 % Neutrophils # 9.2 H (1.3-7.7) k/uL Lymphocytes # 2.1 (1.0-4.8) k/uL Monocytes # 1.0 (0-1.0) k/uL Eosinophils # 0.1 (0-0.7) k/uL Basophils # 0.0 (0-0.2) k/uL Macrocytosis Slight Sodium 137 (137-145) mmol/L Potassium 3.3 L (3.5-5.1) mmol/L Chloride 108 H (98-107) mmol/L Carbon Dioxide 25 (22-30) mmol/L Anion Gap 4 mmol/L BUN 13 (9-20) mg/dL Creatinine 0.97 (0.66-1.25) mg/dL Est GFR (CKD-EPI)AfAm 89 (>60 ml/min/1.73 sqM) Est GFR (CKD-EPI)NonAf 77 (>60 ml/min/1.73 sqM) Glucose 83 (74-99) mg/dL Calcium 8.8 (8.4-10.2) mg/dL Phosphorus 3.5 (2.5-4.5) mg/dL Magnesium 1.4 L (1.6-2.3) mg/dL Total Bilirubin 0.6 (0.2-1.3) mg/dL AST 18 (17-59) U/L ALT 10 (4-49) U/L Alkaline Phosphatase 71 (38-126) U/L Ammonia (<30) umol/L Troponin I <0.012 (0.000-0.034) ng/mL Total Protein 5.8 L (6.3-8.2) g/dL Albumin 3.2 L (3.5-5.0) g/dL TSH 0.533 (0.465-4.680) mIU/L Serum Alcohol <10 mg/dL 11/03/21 Range/Units 20:43 WBC (3.8-10.6) k/uL RBC (4.30-5.90) m/uL Hgb (13.0-17.5) gm/dL Hct (39.0-53.0) % MCV (80.0-100.0) fL MCH (25.0-35.0) pg MCHC (31.0-37.0) g/dL RDW (11.5-15.5) % Plt Count (150-450) k/uL MPV Neutrophils % % Lymphocytes % % Monocytes % % Eosinophils % % Basophils % % Neutrophils # (1.3-7.7) k/uL Lymphocytes # (1.0-4.8) k/uL Monocytes # (0-1.0) k/uL Eosinophils # (0-0.7) k/uL Basophils # (0-0.2) k/uL Macrocytosis Sodium (137-145) mmol/L Potassium (3.5-5.1) mmol/L Chloride (98-107) mmol/L Carbon Dioxide (22-30) mmol/L Anion Gap mmol/L BUN (9-20) mg/dL Creatinine (0.66-1.25) mg/dL Est GFR (CKD-EPI)AfAm (>60 ml/min/1.73 sqM) Est GFR (CKD-EPI)NonAf (>60 ml/min/1.73 sqM) Glucose (74-99) mg/dL Calcium (8.4-10.2) mg/dL Phosphorus (2.5-4.5) mg/dL Magnesium (1.6-2.3) mg/dL Total Bilirubin (0.2-1.3) mg/dL AST (17-59) U/L ALT (4-49) U/L Alkaline Phosphatase (38-126) U/L Ammonia <9 (<30) umol/L Troponin I (0.000-0.034) ng/mL Total Protein (6.3-8.2) g/dL Albumin (3.5-5.0) g/dL TSH (0.465-4.680) mIU/L Serum Alcohol mg/dL - EKG Data EKG Comments: EKG done at 9:04 PM reveals sinus rhythm with a rate of 68. Normal intervals. Possible right ventricular conduction delay, possible inferior myocardial infarc tion with Q waves in lead 2 and prominent R-wave in V1 and V2. No evidence of acute ST elevation or depression. Normal axis. Baseline artifact, when compared to the previous study from August 2021 there is no significant change. Disposition Clinical Impression: Closed head injury, Impaired ambulation, History of CVA (cerebrovascular accident), Fall, General weakness, Hypomagnesemia, Hypokalemia Disposition: ADMITTED IP TO THIS HOSP Condition: Poor Is patient prescribed a controlled substance at d/c from ED?: No Referrals: Aguilar Thurston Jr, DO [Primary Care Provider] - 1-2 days Time of Disposition: 20:28 Decision to Admit Reason: Admit from EC Decision Time: 20:28
--- NOTE | 2021-11-03 19:58 | CT ---
EXAMINATION TYPE: CT brain cspine wo con CT DLP: 1273.2 mGycm, Automated exposure control for dose reduction was used. DATE OF EXAM: 11/03/2021 7:28 PM COMPARISON: CT 09/11/2021 CLINICAL INDICATION:Male, 76 years old with history of fall, head injury; fall TECHNIQUE: Brain: Multiple axial CT images of the brain were obtained without IV contrast. Cspine: Axial CT images from the skull base to the inferior aspect of T2 we obtained without intraven ous contrast. Coronal and sagittal reformatted images were also reviewed. FINDINGS: Brain: Extra-axial spaces: No abnormal extra-axial fluid collections. Ventricular system: Within normal limits Cerebral parenchyma: Encephalomalacia from remote left posterior frontal injury. No acute intraparenc hymal hemorrhage or mass effect. The lombardo-white junction is well differentiated. Cerebellum: Unremarkable. Mass effect: No evidence of midline shift. Intracranial vasculature: Atherosclerotic calcifications of the intracranial vessels. Soft tissues: Normal. Calvarium/osseous structures: No depressed skull fracture. Paranasal sinuses and mastoid air cells: Mild scattered mucosal thickening and or secretions. Visualized orbits: Orbital contents are intact. Cervical spine: Fracture: None. Osseous structures: Multilevel degenerative disc disease changes with endplate spurring and disc oste ophyte complex's. Vertebral alignment: Within normal limits. Spinal canal/Neural Foramina: No evidence of significant spinal canal narrowing. No evidence for sign ificant neural foraminal stenosis. Neck soft tissues: Prevertebral soft tissues are within normal limits. Other: The airway is patent. The lung apices are clear. Elongated styloid processes bilaterally with pseudoarthrosis, right greater than left. Atherosclerosis at the carotid bifurcations. IMPRESSION: 1. No acute intracranial process. 2. No evidence of cervical spine fracture. 3. Moderate multilevel degenerative disc disease. 4. Encephalomalacia of the left frontal lobe lobe from remote injury.
[2021-11-03] MEDS ORDERED: SODIUM CHLORIDE 0.9% 1,000 ML IV STA (20:24)
[2021-11-03 21:00] LABS: Basophils % (A) 0 %; Eosinophils # (A) 0.1 k/uL (0-0.7); Eosinophils % (A) 1 %; HCT 36.6 % (39.0-53.0); HGB 12.1 gm/dL (13.0-17.5); Lymphocytes # (A) 2.1 k/uL (1.0-4.8); Lymphocytes % (A) 16 %; MCH 33.5 pg (25.0-35.0); MCV 101.6 fL (80.0-100.0); Macrocytosis Slight; Mean Platelet Volume 8.4; Monocytes % (A) 8 %; Neutrophils # (A) 9.2 k/uL (1.3-7.7); Neutrophils % (A) 72 %; Platelet Count 270 k/uL (150-450); RDW 13.5 % (11.5-15.5); WBC 12.9 k/uL (3.8-10.6)
[2021-11-03 21:11] LABS: ALT 10 U/L (4-49); AST 18 U/L (17-59); African American GFR (CKD) 89 (>60 ml/min/1.73 sqM); Albumin 3.2 g/dL (3.5-5.0); Alcohol <10 mg/dL; Alkaline Phosphatase 71 U/L (38-126); Anion Gap 4 mmol/L; Blood Urea Nitrogen 13 mg/dL (9-20); Calcium 8.8 mg/dL (8.4-10.2); Carbon Dioxide 25 mmol/L (22-30); Chloride 108 mmol/L (98-107); Glucose 83 mg/dL (74-99); Magnesium 1.4 mg/dL (1.6-2.3); Non-African American GFR(CKD) 77 (>60 ml/min/1.73 sqM); Phosphorus 3.5 mg/dL (2.5-4.5); Potassium 3.3 mmol/L (3.5-5.1); Sodium 137 mmol/L (137-145); Total Bilirubin 0.6 mg/dL (0.2-1.3); Total Protein 5.8 g/dL (6.3-8.2)
[2021-11-03] MEDS ORDERED: Potassium Replacement Protocol 1 EACH MISC MISCELLANE PRN (21:16)
[2021-11-03] MEDS ORDERED: Magnesium Replacement Protocol 1 EACH MISC MISCELLANE PRN (21:16)
--- NOTE | 2021-11-03 21:20 | XR ---
EXAMINATION TYPE: XR chest 1V portable DATE OF EXAM: 11/03/2021 9:04 PM COMPARISON: Chest radiographs from 09/11/2021 TECHNIQUE: XR chest 1V portable Frontal view of the chest. CLINICAL INDICATION:Male, 76 years old with history of Fall, general weakness; FINDINGS: Lungs/Pleura: There is no evidence of pleural effusion, focal consolidation, or pneumothorax. Pulmonary vascularity: Unremarkable. Heart/mediastinum: Cardiomediastinal silhouette is unremarkable. A loop recorder projects over the le ft thorax over the heart. Musculoskeletal: No acute osseous pathology. IMPRESSION: No acute cardiopulmonary disease/process.
[2021-11-03] MEDS ORDERED: ONDANSETRON 4 MG/2 ML VIAL IVP PRN (21:45)
[2021-11-03] MEDS ORDERED: DOCUSATE 100 MG CAP PO PRN (21:45)
[2021-11-03] MEDS ORDERED: NALOXONE 0.4 MG/ML 1 ML VIAL IV PRN (21:45)
[2021-11-03] MEDS ORDERED: SUMAtriptan succinate 50 MG TAB PO PRN (21:48)
[2021-11-03] MEDS ORDERED: THIAMINE 100 MG/ML 2 ML VIAL IVP STA (21:48)
[2021-11-03] MEDS: MAGNESIUM SULFATE-D5W PMX 1 GM in DEXTROSE/WATER 1 100ML.BAG IVPB SCH ×2 (22:00→23:36)
[2021-11-03] MEDS: SODIUM CHLORIDE 0.9% 1,000 ML IV SCH (22:06)
[2021-11-03] MEDS: levETIRAcetam 500 MG TAB PO SCH (22:08)
[2021-11-03 22:16] LABS: Appearance,Urine Clear (Clear); Bilirubin,Urine Negative (Negative); Blood,Urine Negative (Negative); Color,Urine Light Yellow; Glucose,Urine (UA) Negative (Negative); Hyaline Casts,Urine 1 /lpf (0-2); Ketones,Urine Negative (Negative); Leukocyte Esterase,Urine Negative (Negative); Mucus,Urine Rare /hpf; Nitrite,Urine Negative (Negative); PH, Urine 5.5 (5.0-8.0); Protein,Urine 1+ (Negative); RBC,Urine <1 /hpf (0-5); Specific Gravity,Urine 1.007 (1.001-1.035); Squamous Epithelial Cell,Urine <1 /hpf (0-4); Urobilinogen,Urine <2.0 mg/dL (<2.0); WBC,Urine 1 /hpf (0-5)
[2021-11-03] MEDS: POTASSIUM CHLORIDE ER 20 MEQ TAB.ER PO SCH ×2 (22:16→23:36)
[2021-11-03] MEDS: HEPARIN SODIUM,PORCINE/PF 5,000 UNIT/0.5 ML SYRINGE SQ SCH (23:37)
[2021-11-04] MEDS: MAGNESIUM SULFATE-D5W PMX 1 GM in DEXTROSE/WATER 1 100ML.BAG IVPB SCH (01:16)
[2021-11-04] MEDS: HYDROcodone/APAP 5-325MG 1 EACH TAB PO PRN ×4 (03:57→20:41)
[2021-11-04 06:59] LABS: Basophils % (A) 0 %; Eosinophils # (A) 0.1 k/uL (0-0.7); Eosinophils % (A) 1 %; HCT 36.9 % (39.0-53.0); HGB 11.8 gm/dL (13.0-17.5); Lymphocytes # (A) 1.6 k/uL (1.0-4.8); Lymphocytes % (A) 15 %; MCH 32.5 pg (25.0-35.0); MCV 101.6 fL (80.0-100.0); Macrocytosis Slight; Mean Platelet Volume 8.6; Monocytes # (A) 0.9 k/uL (0-1.0); Monocytes % (A) 9 %; Neutrophils # (A) 7.6 k/uL (1.3-7.7); Neutrophils % (A) 72 %; Platelet Count 242 k/uL (150-450); RBC 3.63 m/uL (4.30-5.90); RDW 13.1 % (11.5-15.5); WBC 10.4 k/uL (3.8-10.6)
[2021-11-04 07:14] LABS: Albumin 2.7 g/dL (3.5-5.0); Calcium 8.3 mg/dL (8.4-10.2); Magnesium 2.5 mg/dL (1.6-2.3); Potassium 3.8 mmol/L (3.5-5.1); Total Bilirubin 0.5 mg/dL (0.2-1.3); Total Protein 5.2 g/dL (6.3-8.2)
[2021-11-04] MEDS: HEPARIN SODIUM,PORCINE/PF 5,000 UNIT/0.5 ML SYRINGE SQ SCH ×3 (08:47→23:27)
[2021-11-04] MEDS: CLOPIDOGREL 75 MG TAB PO SCH (08:47)
[2021-11-04] MEDS: PANTOPRAZOLE 40 MG TABLET PO SCH (08:47)
[2021-11-04] MEDS: ASPIRIN 81 MG PO SCH (08:47)
[2021-11-04] MEDS: LOSARTAN 25 MG TAB PO SCH (08:48)
[2021-11-04] MEDS: levETIRAcetam 500 MG TAB PO SCH ×2 (10:59→20:41)
[2021-11-04] MEDS: SODIUM CHLORIDE 0.9% 1,000 ML IV SCH ×2 (11:00→23:27)
[2021-11-04] MEDS: METOPROLOL SUCCINATE (ER) 25 MG TAB.ER.24H PO SCH (15:11)
--- NOTE | 2021-11-04 15:50 | P.HPIM ---
History of Present Illness H&P Date: 11/04/21 Chief Complaint: Increased falls, weakness This is a 76-year-old gentleman past medical history of recent CVA , recent seizures, CAD, hypertension, hyperlipidemia, nicotine dependence, alcohol abuse and multiple other medical issues brought into the ER by family. Patient st ates he caught his leg on the door and sustained a fall. No syncope. Denies chest pain, palpitations or shortness of breath. Troponin negative. Denies lightheadedness dizziness or focal deficits. 2 daughters and son at bedside reporting patient is unsafe ambulating, has increased confusion, making unwise decisions unable to make medical decisions, unable to care for himself and patient is here for placement. Patient recently discharged himself from subacute rehab and informed everyone that he had his son living with him, but son is unable to continue doing this. Magnesium and potassium supplemented in the ER and now within normal limits. Afebrile, normal WBC, hemoglobin 11.8, platelets 242, sodium 139. Renal function stable. UA negative. Serum alcohol less than 10. Blood pressure stable, maintaining O2 sats in the mid to high 90s on room air. Review of Systems ROS Statement: Those systems with pertinent positive or pertinent negative responses have been documented in the HPI. ROS Other: All systems not noted in ROS Statement are negative. Past Medical History Past Medical History: Coronary Artery Disease (CAD), Cancer, Chest Pain / Angina, COPD, CVA/TIA, Dementia, Hearing Disorder / Deafness, Hypertension, Myocardial Infarction ([place]), Rheumatoid Arthritis (RA), Seizure Disorder Additional Past Medical History / Comment(s): SKIN CANCER ON NOSE. DIVERTICULITIS. HX RI's X2. 08/17 stroke with residual right side weakness and limited mobility, speech difficulty. Memory problems from multiple concusions related to alcohol abuse/falls. New onset seizures possibly related to dehydration 09/11/21, none since. 12/06 toes have ingrown toenails. Early stages of Alzheimers. "Underlying Emphysema". Skin bruised. Current decreased urinary output/small amount of burning with urination - advised to follow up with PCP. Recent weight loss. Hard of hearing. Last Myocardial Infarction Date:: Unknown History of Any Multi-Drug Resistant Organisms: None Reported Past Surgical History: Bowel Resection, Cholecystectomy, Heart Catheterization With Stent Additional Past Surgical History / Comment(s): RETINAL DETACHMENT REPAIR (6 ON LEFT, 1 ON RIGHT), TESTICLE REMOVED, unknown how many stents, broken collar bone surgery. Past Anesthesia/Blood Transfusion Reactions: No Reported Reaction Date of Last Stent Placement:: 2019 Past Psychological History: Depression Smoking Status: Current every day smoker Past Alcohol Use History: Abuse Past Drug Use History: None Reported - Past Family History Daughter(s) Family Medical History: Cancer Additional Family Medical History / Comment(s): Breast cancer. Medications and Allergies Home Medications Medication Instructions Recorded Confirmed Type Aspirin 81 mg PO DAILY 6 Days #30 tab 09/14/21 11/03/21 Rx Clopidogrel [Plavix] 75 mg PO DAILY #30 tab 09/14/21 11/03/21 Rx levETIRAcetam [Keppra] 500 mg PO Q12H #60 tab 09/14/21 11/03/21 Rx Losartan Potassium [Cozaar] 25 mg PO DAILY 10/01/21 11/03/21 History Metoprolol Succinate (ER) [Toprol 25 mg PO DAILY 10/01/21 11/03/21 History XL] Pravastatin Sodium [Pravachol] 40 mg PO HS 10/01/21 11/03/21 History Melatonin 3 mg PO HS 11/03/21 11/03/21 History Pantoprazole Sodium [Protonix] 20 mg PO DAILY 11/03/21 11/03/21 History SUMAtriptan succinate 50 mg PO DAILY 11/03/21 11/03/21 History Allergies Allergy/AdvReac Type Severity Reaction Status Date / Time venom-honey bee Allergy Anaphylaxis Verified 11/03/21 21:27 [bee venom (honey bee)] Physical Exam Vitals: Vital Signs Temp Pulse Pulse Resp BP BP Pulse Ox 11/04/21 12:00 63 14 111/73 95 11/04/21 08:08 96 11/04/21 08:00 67 15 123/79 96 11/04/21 04:00 73 18 138/85 96 11/03/21 22:14 97.1 F L 77 18 113/77 99 11/03/21 20:31 68 18 112/78 99 11/03/21 18:18 98.2 F 95 18 118/72 99 - Exam General: Cachectic, alert and oriented 3, sitting up in bed, no acute distress, Neck: Supple, no JVD Cardiac: Heart regular in rate and rhythm. No S3. No S4. No clicks, rubs. No murmur. Lungs:Clear to auscultation bilaterally. Abdomen: Soft, nondistended, No organomegaly. No guarding, Bowel sounds present. Extremes: No edema no cyanosis,normal pulses Skin: Warm and dry. Neurologic: Alert and oriented 3, speech fluent, mild residual decreased strength on the right side, leg greater than arm. Lymphatic: No adenopathy. Results CBC & Chem 7: 11/04/21 06:11 11/04/21 06:11 Labs: Abnormal Lab Results - Last 24 Hours (Table) 11/03/21 11/03/21 11/03/21 Range/Units 20:43 20:43 20:43 WBC 12.9 H (3.8-10.6) k/uL RBC 3.60 L (4.30-5.90) m/uL Hgb 12.1 L (13.0-17.5) gm/dL Hct 36.6 L (39.0-53.0) % MCV 101.6 H (80.0-100.0) fL Neutrophils # 9.2 H (1.3-7.7) k/uL Potassium 3.3 L (3.5-5.1) mmol/L Chloride 108 H (98-107) mmol/L Carbon Dioxide (22-30) mmol/L Calcium (8.4-10.2) mg/dL Magnesium 1.4 L (1.6-2.3) mg/dL Total Protein 5.8 L (6.3-8.2) g/dL Albumin 3.2 L (3.5-5.0) g/dL Urine Protein 1+ H (Negative) Urine Mucus Rare H (None) /hpf 11/04/21 11/04/21 Range/Units 06:11 06:11 WBC (3.8-10.6) k/uL RBC 3.63 L (4.30-5.90) m/uL Hgb 11.8 L (13.0-17.5) gm/dL Hct 36.9 L (39.0-53.0) % MCV 101.6 H (80.0-100.0) fL Neutrophils # (1.3-7.7) k/uL Potassium (3.5-5.1) mmol/L Chloride 115 H (98-107) mmol/L Carbon Dioxide 19 L (22-30) mmol/L Calcium 8.3 L (8.4-10.2) mg/dL Magnesium 2.5 H (1.6-2.3) mg/dL Total Protein 5.2 L (6.3-8.2) g/dL Albumin 2.7 L (3.5-5.0) g/dL Urine Protein (Negative) Urine Mucus (None) /hpf Assessment and Plan Assessment: Multiple frequent falls, lives alone-children unable to stay with him, here for placement History of recent seizure, recent CVA History of tension headaches, concussions CAD Nicotine dependence History of alcohol abuse Plan: Continue on current medication regime ,monitoring and symptomatic treatment. Discussed with patient ECF, AFC-he cannot live alone. Children at bedside expressing their unable to live with him as they live further away with jobs. Patient insistent that he can live by himself. PT/OT consulted. Social work consulted, family advised to obtain legal guardianship. Speech therapy consulted for cognitive evaluation .Psychiatry consulted for competency, recent has been making poor decisions unable to make medical decisions, at this time. Gentle IV fluid hydration. Close monitoring of renal function, electrolytes with repeat labs ordered for a.m. home medications have been reviewed and resumed. The impression and plan of care has been dictated as directed. : I performed a history and examination of this patient, discussed the same with the dictator. I agree with the dictator's note ,documented as a scribe. Any additional findings or plans will be noted.
[2021-11-04] MEDS: MELATONIN 3 MG TABLET PO SCH (20:41)
[2021-11-04] MEDS: PRAVASTATIN SODIUM 40 MG TAB PO SCH (20:41)
[2021-11-05] MEDS: HYDROcodone/APAP 5-325MG 1 EACH TAB PO PRN ×5 (01:55→20:41)
[2021-11-05] MEDS: ASPIRIN 81 MG PO SCH (07:41)
[2021-11-05] MEDS: LOSARTAN 25 MG TAB PO SCH (07:41)
[2021-11-05] MEDS: levETIRAcetam 500 MG TAB PO SCH ×2 (07:41→20:41)
[2021-11-05] MEDS: HEPARIN SODIUM,PORCINE/PF 5,000 UNIT/0.5 ML SYRINGE SQ SCH ×3 (07:41→23:15)
[2021-11-05] MEDS: CLOPIDOGREL 75 MG TAB PO SCH (07:41)
[2021-11-05] MEDS: METOPROLOL SUCCINATE (ER) 25 MG TAB.ER.24H PO SCH (07:42)
[2021-11-05] MEDS: PANTOPRAZOLE 40 MG TABLET PO SCH (07:42)
--- NOTE | 2021-11-05 14:09 | P.CONS ---
History of Present Illness - Reason for Consult Consult date: 11/05/21 Goals of care Requesting physician: Isaura Lou - Chief Complaint Frequent falls - History of Present Illness The patient is a 76-year-old man with a past medical history of recent CVA with right sided weakness, seizures, CAD, hypertension, and hyperlipidemia. He was br ought into the ER by family on 11/03/21. Patient states he caught his leg on the door and sustained a fall. No syncope. Denies chest pain, palpitations or shortness of breath. Troponin negative. Denies lightheadedness dizziness or focal deficits. Family at bedside in ER report that the patient is unsafe ambulating, has increased confusion, is unable to make medical decisions, is unable to care for himself. Patient was recently discharged himself from subacute rehab and informed everyone that he had his son living with him, but son is unable to continue doing this. Review of Systems Constitutional: Reports as per HPI Past Medical History Past Medical History: Coronary Artery Disease (CAD), Cancer, Chest Pain / Angina, COPD, CVA/TIA, Dementia, Hearing Disorder / Deafness, Hypertension, Myocardial Infarction (PR), Osteoarthritis (OA), Rheumatoid Arthritis (RA), Seizure Disorder Additional Past Medical History / Comment(s): Multiple CVAs with R sided weakness/mobility problems/FALLS, seizure after CVA, ischemic cardiomyopathy, increasing confusion per family, past ETOH abuse but none past couple months, concussions, chronic low back pain, skin cancer removed from nose, [place], diverticular disease/benign colon polyp Last Myocardial Infarction Date:: 2011 History of Any Multi-Drug Resistant Organisms: None Reported Past Surgical History: Bowel Resection, Cholecystectomy, Heart Catheterization With Stent, Orthopedic Surgery, Tonsillectomy Additional Past Surgical History / Comment(s): PCI/stents, 10/06/21 R brachiocephalic artery stenosis/angiogram and balloon angioplasty, Loop recorder, retinal detachments with 6 L eye surgeries and R eye surgery, sking cancer removed from nose, clavicular fracture with surgical repair, colonoscopy/polyp removed, orchiectomy. Past Anesthesia/Blood Transfusion Reactions: No Reported Reaction Date of Last Stent Placement:: 2019 Smoking Status: Current every day smoker - Past Family History Daughter(s) Family Medical History: Cancer Additional Family Medical History / Comment(s): Breast cancer. Mother Additional Family Medical History / Comment(s): ETOH abuse Father Family Medical History: Myocardial Infarction (PR) Medications and Allergies Home Medications Medication Instructions Recorded Confirmed Type Aspirin 81 mg PO DAILY 6 Days #30 tab 09/14/21 11/03/21 Rx Clopidogrel [Plavix] 75 mg PO DAILY #30 tab 09/14/21 11/03/21 Rx levETIRAcetam [Keppra] 500 mg PO Q12H #60 tab 09/14/21 11/03/21 Rx Losartan Potassium [Cozaar] 25 mg PO DAILY 10/01/21 11/03/21 History Metoprolol Succinate (ER) [Toprol 25 mg PO DAILY 10/01/21 11/03/21 History XL] Pravastatin Sodium [Pravachol] 40 mg PO HS 10/01/21 11/03/21 History Melatonin 3 mg PO HS 11/03/21 11/03/21 History Pantoprazole Sodium [Protonix] 20 mg PO DAILY 11/03/21 11/03/21 History SUMAtriptan succinate 50 mg PO DAILY 11/03/21 11/03/21 History Allergies Allergy/AdvReac Type Severity Reaction Status Date / Time venom-honey bee Allergy Anaphylaxis Verified 11/03/21 21:27 [bee venom (honey bee)] Physical Exam Vitals: Vital Signs Temp Pulse Pulse Pulse Resp BP BP 11/05/21 04:07 97.9 F 66 16 130/83 11/04/21 21:45 11/04/21 19:35 98.0 F 66 18 111/71 11/04/21 19:11 98.4 F 64 18 121/98 11/04/21 16:00 97.7 F 77 14 102/73 11/04/21 14:00 77 14 Pulse Ox 11/05/21 04:07 95 11/04/21 21:45 98 11/04/21 19:35 98 11/04/21 19:11 94 L 11/04/21 16:00 96 11/04/21 14:00 Intake and Output 11/04/21 11/05/21 11/05/21 22:59 06:59 14:59 Intake Total 100 Output Total 100 Balance 100 -100 Intake: Oral 100 Output: Urine 100 Other: # Voids 1 # Bowel Movements 2 Weight 63.503 kg 52.5 kg General: Patient chronicall ill apearing. Cachectic. No acute distress. HEENT: Head is atraumatic, normocephalic Sclerae are clear. Pupils equal, round and reactive to light bilaterally. CV: Heart regular in rate and rhythm positive S1 and S2. No clicks, rubs or murmurs. Peripheral pulses equal. 2/4 Lungs: Clear to auscultation bilaterally. No wheezes rales or rhonchi. Respirations even and nonlabored. On RA. Abdomen/GI: Soft. Bowel sounds present in all 4 quadrants. No abdominal tenderness. Musculoskeletal/ Extremities: No tenderness on muscular exam. No ecchymosis. Mild right sided weakness. Vascular: Radial pulses equal. 2/4.No peripheral edema. Skin: Warm and dry. No rash. Neurologic: Awake, alert and oriented times 3. CN II-XII grossly intact. Psychiatric: Appropriate mood and affect. Results CBC & Chem 7: 11/04/21 06:11 11/04/21 06:11 Chest x-ray: report reviewed CT Scan - head: report reviewed Assessment and Plan Assessment: Reason for consult - Goals of care Social * Occupation - Retired. Worked as a [employer], and in a [employer]. * Marital status - * Children/grandchildren - 3 adult children. 2 daughters and 1 son. 2 grand daughters * Residence - single story house * Who do you reside with - lives alone * ETOH - Quit drinking 04/2021 * Tobacco - Current every day smoker * Illicit drugs - None Spiritual/Cultural * A spiritual person - No * Yarsanism - N/A * Belong to a particular mu-ism - No * Beliefs a source of comfort and strength - No * Yazdanism or cultural practices restrictions - No * EOL considerations/rituals? No Functional Assessment * Able to walk independently - Yes, however has had multiple recent falls * Assistive devices - pt has a walker and a 4 pronged cane, he prefers the walker * Able to use the bathroom independently - Yes * Continent - No, wears briefs * Require assistance bathing- No * Able to feed self - Yes * Who prepares meals - MOW * How many meals a day eaten - 2 * What percentage of meals eaten daily - "varies a lot" * Able to clean house/do laundry - Yes * Transportation - pt does not drive. He relies on his 2 daughters and a neighbor * Able to shop - No * Who manages medications - Patient * Who manages finances - Patient PPS score - 60% Psychological/Emotional * Dementia present - No * Insight and judgment - Intact * Depression - No * Suicidal thoughts - No * Good support system - No * Patients goals - optimize functionality * Frequent hospitalizations - No * Desire to keep coming back to the hospital for treatment - No Symptoms * Pain - 10 headache, Continue [place] prn, Imitrex, * Fatigue - Reports a good energy level, is frustrated that he is physically limited from doing what he would like to do * SOB - Yes, with exertion * Insomnia - Yes, continue remeron and melatonin * N/V - No, continue zofran prn * Anxiety - No * Depression - No * Confusion - No * Agitation - No * Hallucinations - No * Appetite/weight loss - +poor appetite with recent weight loss, continue heart healthy diet, encourage oral intake, add nutritional supplement * Dysphagia -No * Constipation - Yes, continue colace. LBM 11/05 x 2 * Incontinence - Yes, wears briefs * Itch - no Plan: Summary/Goals - The patient is in bed and appears comfortable. His daughter, Corrina, is at the bedside. Palliative care philosophies and services explained to the patient. Voiced concern over patient's recent falls and living alone. He is very adamant that he will not go to a [facility]. He states he went to one after his CVA, and did not have a good experience there. He does not feel as if they helped him get stronger. He states he has family, friends, and neighbors who will check in on him frequently. He would like to continue PT and home health care after discharge. The patient has agreed to outpatient palliative care. His daughter alluded to the fact that he is lying about the support from his friends and neighbors. The patient's son called and was on speaker phone with his dad and sister. The son, Alejandro, stated that he would not be able to live and care for his dad. he is currently looking for a job. The patient had a psych evaluation, it was felt that he is competent to make his own decisions. The patient stated that "if circumstances demand it" he might consider a [facility]. However, he feels as if he is still able to safely for himself at this time. Recommendations - Discharge home with home care, PT/OT, and outpatient palliative care Advanced Directives - None on file, information provided Code Status - DNR Thank you for this consult Becca Schmitt [facility] [id number] Email: [email or web address] Time with Patient: Greater than 30
--- NOTE | 2021-11-05 14:56 | P.PN ---
Subjective This is a 76-year-old gentleman past medical history of recent CVA , recent seizures, CAD, hypertension, hyperlipidemia, nicotine dependence, alcohol abuse and multiple other medical issues brought into the ER by family. Patient states he caught his leg on the door and sustained a fall. No syncope. Denies chest pain, palpitations or shortness of breath. Troponin negative. Denies lightheadedness dizziness or focal deficits. 2 daughters and son at bedside reporting patient is unsafe ambulating, has increased confusion, making unwise decisions unable to make medical decisions, unable to care for himself and patient is here for placement. Patient recently discharged himself from subacute rehab and informed everyone that he had his son living with him, but son is unable to continue doing this. Magnesium and potassium supplemented in t ER and now within normal limits. Afebrile, normal WBC, hemoglobin 11.8, platelets 242, sodium 139. Renal function stable. UA negative. Serum alcohol less than 10. Blood pressure stable, maintaining O2 sats in the mid to high 90s on room air. November 05, 2021: patient was seen and evaluated in his room. This is the third admission for him from falling at home and having delirium, dehydration or other such symptoms from being by himself. He and I discussed at length yesterday that he should not be living alone. At his discharge from [facility] last admission, he insisted that he would be fine and his children would be with himMost of the time. In the emergency room his children and I discussed the fact that this is not true. That his son has been helping him out but cannot be there 24 hours. His two daughters live in [place] and work. Psych was cThey have not concluded that Matthew can or cannot make his own decisions. However, he misses his third admission for a very similar situation myself and Dr. Thurston are convinced. We'll Continue to obtain a guardian for him whether his family or public. Today Cornel is in much better spirits. Vitals are stable, physical therapy and occupational therapy will be seeing him. Labs are pending. Objective - Vital Signs Vital signs: Vital Signs Temp 97.9 F 11/05/21 04:07 Pulse 66 11/05/21 04:07 Resp 16 11/05/21 04:07 BP 130/83 11/05/21 04:07 Pulse Ox 95 11/05/21 04:07 FiO2 Intake & Output 11/04/21 11/05/21 11/05/21 18:59 06:59 18:59 Intake Total 450 100 Output Total 500 100 Balance -50 0 Weight 63.503 kg 52.5 kg Intake: IV 450 Sodium Chloride 0.9% 1, 450 000 ml @ 75 mls/hr IV . [id number] TIFFANIE Rx#:[id number] Oral 100 Output: Urine 500 100 Other: # Voids 1 2 # Bowel Movements 2 1 - Exam General: Cachectic, alert and oriented 3, sitting up in bed, no acute distress, Neck: Supple, no JVD Cardiac: Heart regular in rate and rhythm. No S3. No S4. No clicks, rubs. No murmur. Lungs:Clear to auscultation bilaterally. Abdomen: Soft, nondistended, No organomegaly. No guarding, Bowel sounds present. Extremes: No edema no cyanosis,normal pulses Skin: Warm and dry. Neurologic: Alert and oriented 3, speech fluent, mild residual decreased strength on the right side, leg greater than arm. Lymphatic: No adenopathy. - Labs CBC & Chem 7: 11/04/21 06:11 11/04/21 06:11 Assessment and Plan (1) Protein-calorie malnutrition, moderate Current Visit: Yes Status: Acute Code(s): E44.0 - MODERATE PROTEIN-CALORIE MALNUTRITION SNOMED Code(s): 166815876 (2) General weakness Current Visit: Yes Status: Acute Code(s): R53.1 - WEAKNESS SNOMED Code(s): 39695321 (3) H/O: CVA (cerebrovascular accident) Current Visit: Yes Status: Acute Code(s): Z86.73 - PRSNL HX OF TIA (TIA), AND CEREB INFRC W/O RESID DEFICITS SNOMED Code(s): 891348400 (4) Hypokalemia Current Visit: Yes Status: Acute Code(s): E87.6 - HYPOKALEMIA SNOMED Code(s): 67602782 (5) Hypomagnesemia Current Visit: Yes Status: Acute Code(s): E83.42 - HYPOMAGNESEMIA SNOMED Code(s): 336703225 (6) Impaired ambulation Current Visit: Yes Status: Acute Code(s): R26.2 - DIFFICULTY IN WALKING, NOT ELSEWHERE CLASSIFIED SNOMED Code(s): 671701510 (7) CAD (coronary artery disease) Current Visit: No Status: Acute Code(s): I25.10 - ATHSCL HEART DISEASE OF [place] CORONARY ARTERY W/O ANG PCTRS SNOMED Code(s): 25905705 (8) COPD (chronic obstructive pulmonary disease) Current Visit: No Status: Acute Code(s): J44.9 - CHRONIC OBSTRUCTIVE PULMONARY DISEASE, UNSPECIFIED SNOMED Code(s): 47801670 Plan: Cornel will continue in PT 0T. Will continue to plan on placement for him. We will continue to try to obtain a guardian from 31 will repeat labs an empty one he will be reevaluated the next 24 hours.
[2021-11-05] MEDS: SODIUM CHLORIDE 0.9% 1,000 ML IV SCH (15:22)
[2021-11-05 16:00] VITALS: BMI 17.6
[2021-11-05] MEDS: PRAVASTATIN SODIUM 40 MG TAB PO SCH (20:41)
[2021-11-05] MEDS: MELATONIN 3 MG TABLET PO SCH (20:41)
[2021-11-05] MEDS ORDERED: MIRTAZAPINE 15 MG TAB PO SCH (21:00)
--- NOTE | 2021-11-05 21:33 | P.CN ---
Psychiatric Consult - . Consult date: 11/05/21 Consult:: IDENTIFYING DATA: This patient is a 76-year-old male with past medical history of recent CVA, recent seizures, increased falls and weakness, depression, dementia and alcohol abuse. REASON FOR REFERRAL: Psychiatry was consulted for "patient unsafe at home and making poor decisions". HISTORY OF PRESENT ILLNESS: Per initial medical note on 11/04/21, patient was brought into the ER by his family, "Patient states he caught his leg on the door and sustained a fall. No syncope. Denies chest pain, palpitations or shortness of breath. Troponin negative. Denies lightheadedness dizziness or focal deficits. 2 daughters and son at bedside reporting patient is unsafe ambulating, has increased confusion, making unwise decisions unable to make medical decisions, unable to care for himself and patient is here for placement. Patient recently discharged himself from subacute rehab and informed everyone that he had his son living with him, but son is unable to continue doing this....Discussed with patient ECF, AFC-he cannot live alone.Children at bedside expressing their unable to live with him as they live further away with jobs. Patient insistent that he can live by himself. PT/OT consulted. Social work consulted, family advised to obtain legal guardianship. Speech therapy consulted for cognitive evaluation. Psychiatry consulted for competency, recent has been making poor decisions unable to make medical decisions, at this time. Gentle IV fluid hydration. Close monitoring of renal function, electrolytes with repeat labs ordered for a.m. home medications have been reviewed and resumed." I evaluated patient this morning at around 7:30 am for about 2 hours. He was found awake in his bed using his phone. He is agreeable to assessment, however he has an irritable edge, is observed to make sarcastic remarks, and is argumentative or antagonistic at times. He is alert and oriented to person, place, and month/year. He is evasive when answering questions and appears to be utilizing the defense mechanisms of denial and minimization regarding the severity of his poor physical health, and appears to overestimate his physical abilities and ability to live by himself at home as well as his son's willingness to care for him at home. He states he is very close to his children, and his son has been living with him for the past 7-8 months caring for him 24/7 and will continue to do so. He would like to look into making arrangements for the state to pay his son as his hospice director. He believes his children will put him first, and will help care for him at home so that he can continue to live in his own home. He admits to sad mood, but appears to minimize and rationalize his depression as "everybody goes through highs and lows". He reports fair sleep and admits he finds the "pain pill" helpful for him to sleep. He reports fair energy, and denies problems with concentration and appetite. His breakfast arrives during our assessment but he eats very little of it, criticizes the pancakes are too hard and the sausage is undercooked. Objectively, he appears depressed and is tearful at several times during the assessment. He denies suicidal or homicidal ideations, plan or intent. He denies auditory or visual hallucinations, and does not appear to be attending to internal stimuli. He denies anxiety and there are no overt features of guadalupe or psychosis on assessment. He is resistant to AFC placement and wants to return home. He states he knows he is weaker, but believes he can manage himself at home because he knows which walker to use and "I just deal with it". He states he has "a minimal amount of time left" and he wants to "choose how to live it", which is to be in his own home. He states he has already made his will and expressed his wishes to his children to be DNR. He states he understands he could fall again at home and understands the fall could be lethal and he could . He eventually states he will reconsider subacute rehab again to get stronger and then go home, but insists he wants to go home. He denies any current drug or alcohol use, and reports his last drink of alcohol was 8 months ago. He reports admits he has a history of drinking more than he should have but denies he previously had a problem with alcohol because he continued to hold a job and didn't miss work because of his drinking. He gave me his son's phone number (Alejandro, ). I called and spoke with Alejandro this afternoon who reports patient will tell you what you want to hear. Alejandro and the family feel patient needs AFC placement because Alejandro is no longer able to live with him and provide care 19/10 since he needs to get a job and his sisters live far away and work. Alejandro reports patient was a "raging alcoholic" and was very depressed, with poor appetite and decreased fluid intake, low energy, in bed most days and with frequent crying spells "balling his eyes out", would only shower every 4 days despite having frequent diarrhea due to GI issues. Son reports patient was drinking heavily until his stroke this summer. Per medical note on 11/05/21, "This is the third admission for him from falling at home and having delirium, dehydration or other such symptoms from being by himself. He and I discussed at length yesterday that he should not be living alone. At his discharge from [facility] last admission, he insisted that he would be fine and his children would be with him most of the time. In the emergency room his children and I discussed the fact that this is not true. That his son has been helping him out but cannot be there 24 hours. His two daughters live in [place] and work." I have reviewed his labs, including B12 level (533, 08/07/21) and folate (10.40, 08/07/21) and both are within normal limits. I have reviewed his head CT (11/03/21) showing significant encephalomalacia in the left posterior, as well as MRI brain (08/11/21) showing multiple areas of infarct in parietal lobes. PAST PSYCHIATRIC HISTORY: Patient has a a history of depression and alcohol abuse, which he minimizes. Patient denies being on any psychiatric medications. Patient denies any previous psychiatric hospitalizations. Patient denies any psychiatric outpatient follow-up. Patient denies any history of suicide attempts in the past. PAST MEDICAL HISTORY: Past Medical History: Coronary Artery Disease (CAD), Cancer, Chest Pain / Angina, COPD, CVA/TIA, Dementia, Hearing Disorder / Deafness, Hypertension, Myocardial Infarction ([place]), Rheumatoid Arthritis (RA), Seizure Disorder Additional Past Medical History / Comment(s): SKIN CANCER ON NOSE. DIVERTICULITIS. HX WI's X2. 08/17 stroke with residual right side weakness and limited mobility, speech difficulty. Memory problems from multiple concusions related to alcohol abuse/falls. New onset seizures possibly related to dehydration 09/11/21, none since. 9/10 toes have ingrown toenails. Early stages of Alzheimers. "Underlying Emphysema". Skin bruised. Current decreased urinary output/small amount of burning with urination - advised to follow up with PCP. Recent weight loss. Hard of hearing. Last Myocardial Infarction Date:: Unknown History of Any Multi-Drug Resistant Organisms: None Reported Past Surgical History: Bowel Resection, Cholecystectomy, Heart Catheterization With Stent Additional Past Surgical History / Comment(s): RETINAL DETACHMENT REPAIR (6 ON LEFT, 1 ON RIGHT), TESTICLE REMOVED, unknown how many stents, broken collar bone surgery. Past Anesthesia/Blood Transfusion Reactions: No Reported Reaction Date of Last Stent Placement:: 2019 Past Psychological History: Depression Smoking Status: Current every day smoker Past Alcohol Use History: Abuse Past Drug Use History: None Reported ALLERGIES: as per EMR. CHEMICAL DEPENDENCY HISTORY: History of alcohol abuse which he minimizes. Smokes 1-2 ppd. Has tried marijuana. He denies current alcohol or drug use. FAMILY PSYCHIATRIC/SUBSTANCE USE HISTORY: Not known at this time. SOCIAL HISTORY: Lives alone in a single story home. , 3 adult children MENTAL STATUS EXAM: General Appearance: Patient appears to be stated age, is disheveled with fair hygiene, appears underweight, wearing hospital gown, good eye contact. Orientation: He is alert, and oriented to person, place, month/year, and situation. Behavior: Patient is lying in bed without any agitated behavior. Speech: Patient's speech is fluent, non-pressured, but loud. Mood/Affect: His mood is irritable and sad, affect is congruent/tearful at times Suicidality/Homicidality: Patient denies having any suicidal or homicidal ideation intent or plan. Perceptions: Patient denies any visual hallucinations and denies any auditory hallucinations. Thought process: Argumentative and antagonistic Though content: Thought distortions are prevalent including denial, minimization and rationalization. Memory and concentration: Fair, some difficulty concentrating on simple math and clock drawing. Judgment and insight: Poor IMPRESSIONS: Delirium, multifactorial (dehydration, poor nutrition, recent CVA, history of concussion) - improving Unspecified depressive disorder, r/o depressive disorder due to medical condition vs MDD Concern for neurocognitive disorder Alcohol use disorder, in early remission Tobacco use disorder, nicotine dependence PLAN: -At this time patient DOES NOT meet criteria for inpatient psychiatric admission. -Based on all available information at this time, patient DOES NOT appear to have decision making capacity at this time and is unable to reason through or appreciate the risks/benefits/alternatives to treatment. Currently, the delirium , depression, probable neurocognitive disorder, and thought distortions (denial, minimization, rationalization) are impeding his ability to effectively weigh his treatment options in a rational manner and to arrive at a decision that is consistent over time. -Delirium precautions recommended with patient including - avoiding use of narcotics (when possible) and THERAPY TECHNICIAN sedatives, limit anticholinergic medications when possible, frequent re-orientation, minimize use of restraints, open window shades during the day and close them at night. -PT/OT assessments -Recommend family meeting with patient and children, to outline goals of care. -Would recommend the following medication changes/additions: Start Remeron 15 mg QHS for depression, sleep and appetite. Risks/benefits/side effects discussed with patient who agrees to start this medication. Start oral thiamine 100 mg daily for history of alcoholism. Multivitamin, B12 and folate supplementation as needed. Nicotine replacement. -I have reviewed labs (including B12 and folate levels) and imaging studies, including head CT and brain MRI as outlined above. -Will continue to follow along -Please contact with any questions. 11/05/21 19:48 11/05/21 21:20 11/05/21 21:31
[2021-11-06] MEDS: HYDROcodone/APAP 5-325MG 1 EACH TAB PO PRN ×2 (02:30→08:21)
[2021-11-06 05:17] VITALS: BP 110/54; PULSE 62; RESP 15; TEMP 97.5
[2021-11-06] MEDS: SODIUM CHLORIDE 0.9% 1,000 ML IV SCH (05:21)
[2021-11-06 06:16] LABS: Basophils % (A) 1 %; Eosinophils # (A) 0.2 k/uL (0-0.7); Eosinophils % (A) 2 %; HCT 36.8 % (39.0-53.0); HGB 11.5 gm/dL (13.0-17.5); Hypochromasia Moderate; Lymphocytes # (A) 2.3 k/uL (1.0-4.8); Lymphocytes % (A) 33 %; MCH 32.7 pg (25.0-35.0); MCHC 31.1 g/dL (31.0-37.0); MCV 105.1 fL (80.0-100.0); Macrocytosis Slight; Mean Platelet Volume 8.6; Monocytes # (A) 0.7 k/uL (0-1.0); Monocytes % (A) 9 %; Neutrophils # (A) 3.6 k/uL (1.3-7.7); Neutrophils % (A) 52 %; Platelet Count 252 k/uL (150-450)
[2021-11-06 06:30] LABS: African American GFR (CKD) >90 (>60 ml/min/1.73 sqM); Anion Gap 10 mmol/L; Blood Urea Nitrogen 11 mg/dL (9-20); Calcium 8.3 mg/dL (8.4-10.2); Carbon Dioxide 16 mmol/L (22-30); Chloride 116 mmol/L (98-107); Glucose 69 mg/dL (74-99); Non-African American GFR(CKD) >90 (>60 ml/min/1.73 sqM); Potassium 3.9 mmol/L (3.5-5.1); Sodium 142 mmol/L (137-145)
[2021-11-06] MEDS: METOPROLOL SUCCINATE (ER) 25 MG TAB.ER.24H PO SCH (08:09)
[2021-11-06] MEDS: HEPARIN SODIUM,PORCINE/PF 5,000 UNIT/0.5 ML SYRINGE SQ SCH (08:09)
[2021-11-06] MEDS: PANTOPRAZOLE 40 MG TABLET PO SCH (08:09)
[2021-11-06] MEDS: CLOPIDOGREL 75 MG TAB PO SCH (08:09)
[2021-11-06] MEDS: ASPIRIN 81 MG PO SCH (08:09)
[2021-11-06] MEDS: LOSARTAN 25 MG TAB PO SCH (08:09)
[2021-11-06] MEDS: levETIRAcetam 500 MG TAB PO SCH (08:59)
[2021-11-06] MEDS ORDERED: THIAMINE 100 MG TAB PO SCH (09:00)
--- NOTE | 2021-11-06 10:29 | P.PN ---
Subjective Progress Note Date: 11/06/21 The patient is a 76-year-old man with a past medical history of recent CVA with right sided weakness, seizures, CAD, hypertension, and hyperlipidemia. He was brought into the ER by family on 11/03/21. Patient states he caught his leg on the door and sustained a fall. No syncope. Denies chest pain, palpitations or shortness of breath. Troponin negative. Denies lightheadedness dizziness or focal deficits. Family at bedside in ER report that the patient is unsafe ambulating, has increased confusion, is unable to make medical decisions, is unable to care for himself. Patient was recently discharged himself from subacute rehab and informed everyone that he had his son living with him, but so n is unable to continue doing this. 11/05 The patient is in bed and appears comfortable. His daughter, Corrina, is at the bedside. Palliative care philosophies and services explained to the patient. Voiced concern over patient's recent falls and living alone. He is very adamant that he will not go to a [facility]. He states he went to one after his CVA, and did not have a good experience there. He does not feel as if they helped him get stronger. He states he has family, friends, and neighbors who will check in on him frequently. He would like to continue PT and home health care after discharge. The patient has agreed to outpatient palliative care. His daughter alluded to the fact that he is lying about the support from his friends and neighbors. The patient's son called and was on speaker phone with his dad and sister. The son, Alejandro, stated that he would not be able to live and care for his dad. he is currently looking for a job. The patient had a psych evaluation, it was felt that he is competent to make his own decisions. The patient stated that "if circumstances demand it" he might consider a [facility]. However, he feels as if he is still able to safely care for himself at this time. His primary care physicians are convinced that the patient is not able to make his own decisions and is not able to live alone. They will continue to obtain a guardian for him, either family or public. Objective - Vital Signs Vital signs: Vital Signs Temp 97.5 F L 11/06/21 04:07 Pulse 62 11/06/21 04:07 Resp 15 11/06/21 04:07 BP 110/54 11/06/21 04:07 Pulse Ox 95 11/06/21 04:07 FiO2 Intake & Output 11/05/21 11/06/21 11/06/21 18:59 06:59 18:59 Output Total 100 Balance -100 Weight 52.5 kg 53.524 kg Output: Urine 100 Other: # Voids 2 1 # Bowel Movements 1 1 - Exam General: Patient chronicall ill apearing. Cachectic. No acute distress. HEENT: Head is atraumatic, normocephalic Sclerae are clear. Pupils equal, round and reactive to light bilaterally. CV: Heart regular in rate and rhythm positive S1 and S2. No clicks, rubs or murmurs. Peripheral pulses equal. 2/4 Lungs: Clear to auscultation bilaterally. No wheezes rales or rhonchi. Respirations even and nonlabored. On RA. Abdomen/GI: Soft. Bowel sounds present in all 4 quadrants. No abdominal tenderness. Musculoskeletal/ Extremities: No tenderness on muscular exam. No ecchymosis. Mild right sided weakness. Vascular: Radial pulses equal. 2/4.No peripheral edema. Skin: Warm and dry. No rash. Neurologic: Awake, alert and oriented times 3. CN II-XII grossly intact. Psychiatric: Appropriate mood and affect. - Labs CBC & Chem 7: 11/06/21 05:39 11/06/21 05:35 Labs: Abnormal Lab Results - Last 24 Hours (Table) 11/06/21 11/06/21 Range/Units 05:35 05:39 RBC 3.50 L (4.30-5.90) m/uL Hgb 11.5 L (13.0-17.5) gm/dL Hct 36.8 L (39.0-53.0) % MCV 105.1 H (80.0-100.0) fL Chloride 116 H (98-107) mmol/L Carbon Dioxide 16 L (22-30) mmol/L Glucose 69 L (74-99) mg/dL Calcium 8.3 L (8.4-10.2) mg/dL Assessment and Plan Assessment: Symptoms * Pain - 5/10 headache, Continue [place] prn, Imitrex, * Fatigue - Reports a good energy level, is frustrated that he is physically limited from doing what he would like to do * SOB - Yes, with exertion * Insomnia - Yes, continue remeron and melatonin * N/V - No, continue zofran prn * Anxiety - No * Depression - No * Confusion - No * Agitation - No * Hallucinations - No * Appetite/weight loss - +poor appetite with recent weight loss, continue heart healthy diet, encourage oral intake, continue ensure TIDWM * Dysphagia -No * Constipation - Yes, continue colace. LBM 8/10 x 2 * Incontinence - Yes, wears briefs * Itch - no Plan: Summary/Goals - The patient is frustrated this morning. He does not think that he is getting the therapy he needs in the hospital. He is anxious to be discharged home PEG so he can continue his home PT/OT. Concern was expressed again regarding it being unsafe for the patient to live alone. He stated that he does not want to live his life being continuously monitored under a microscope. "It is not how I want to live". He states that he is ok with the fact the he may fall again and not be able to get up. "If I fall and there on the floor, I'm ok with that." He states that God will choose when it is time for him to and there is nothing he can do to change that. "I'd rather live my life as independently as possible that live my life worrying about dying". He understands his family's concern for his safety, but wants them to realize that it is his life and his body. He feels like they should be proud of him for doing everything possible to remain independent as long as possible. Spoke to patient's daughter, Heather, via telephone. She is frustrated that her dad is being stubborn. His three children live an hour a way, have families and jobs. They are not able to come take care of him. She feels the patient is not being truthful about the amount of support available. At his discharge from [facility] last admission, he insisted that he would be fine and his children would be with him most of the time. In the emergency room his children and his primary care physician discussed the fact that this is not true. The patient states his neighbors will check on him daily. Heather states that this also is not true. She feels it is unsafe for him to live alone and will lie to get his way. Heather reiterated the fact that her brother, Alejandro, is unable to live with him anymore. The patient has been manipulative with him and makes him feel guilty for not moving back in. Heather is also concerned about the patient's ability to manage his pain medication. Prior to admission, her brother was away for a couple days and when he returned, the [place] bottle was empty. His primary care physician is convinced that the patient is not stefani to make sound decisions and needs a legal guardian. Recommendations - Obtain legal guardian for patient, placement in biology adjunct instructor care facility Advanced Directives - None on file, information provided Code Status - DNR Thank you for this consult Becca Schmitt [facility]- Palliative Care [facility] [id number] Email: [email or web address] Time with Patient: Greater than 30
--- NOTE | 2021-11-06 10:43 | P.DS ---
Providers Date of admission: 11/03/21 21:45 Expected date of discharge: 11/06/21 Attending physician: Ivan Elliott Consults: 11/04/21 11:04 Consult Physician Routine Consulting Provider: Stevan Gonzalez Consult Reason/Comments: patient unsafe at home and making poor decisions Do you want consulting provider notified?: Yes 11/05/21 11:28 Consult to Palliative Care Routine Consulting Provider: Becca Schmitt Consult Reason/Comments: palliative care info and pt goals Do you want consulting provider notified?: Yes Primary care physician: Aguilar Thurston - Hank Diagnosis(es) (1) Protein-calorie malnutrition, moderate Current Visit: Yes Status: Acute (2) General weakness Current Visit: Yes Status: Acute (3) H/O: CVA (cerebrovascular accident) Current Visit: Yes Status: Acute (4) Hypokalemia Current Visit: Yes Status: Acute (5) Hypomagnesemia Current Visit: Yes Status: Acute (6) Impaired ambulation Current Visit: Yes Status: Acute (7) CAD (coronary artery disease) Current Visit: No Status: Acute (8) COPD (chronic obstructive pulmonary disease) Current Visit: No Status: Acute Hospital Course: This is a 76-year-old gentleman past medical history of recent CVA , recent seizures, CAD, hypertension, hyperlipidemia, nicotine dependence, alcohol abuse and multiple other medical issues brought into the ER by family. Patient states he caught his leg on the door and sustained a fall. No syncope. Denies chest pain, palpitations or shortness of breath. Troponin negative. Denies lightheadedness dizziness or focal deficits. 2 daughters and son at bedside reporting patient is unsafe ambulating, has increased confusion, making unwise decisions unable to make medical decisions, unable to care for himself and patient is here for placement. Patient recently discharged himself from subacute rehab and informed everyone that he had his son living with him, but son is unable to continue doing this. Magnesium and potassium supplemented in the ER and now within normal limits. Afebrile, normal WBC, hemoglobin 11.8, platelets 242, sodium 139. Renal function stable. UA negative. Serum alcohol less than 10. Blood pressure stable, maintaining O2 sats in the mid to high 90s on room air. November 05, 2021: patient was seen and evaluated in his room. This is the third admission for him from falling at home and having delirium, dehydration or other such symptoms from being by himself. He and I discussed at length yesterday that he should not be living alone. At his discharge from [facility] last admission, he insisted that he would be fine and his children would be with himMost of the time. In the emergency room his children and I discussed the fact that this is not true. That his son has been helping him out but cannot be there 24 hours. His two daughters live in [place] and work. Psych was cThey have not concluded that Matthew can or cannot make his own decisions. However, he misses his third admission for a very similar situation myself and Dr. Thurston are convinced. We'll Continue to obtain a guardian for him whether his family or public. Today Cornel is in much better spirits. Vitals are stable, physical therapy and occupational therapy will be seeing him. Labs are pending. 11/06/2021: Patient is much more awake and alert today. Physical therapy and occupational therapy indicated he is mostly independent. He does not currently meet criteria for long-term care. I discussed my concerns regarding him making his own medical decisions at length. Psych indicated that he is capable of making his own medical decisions. At this point I'm greatly concerned about his care, however I will work with his family to discharge him home. Patient Condition at Discharge: Poor Plan - Discharge Summary Discharge Rx Participant: No New Discharge Prescriptions: New Thiamine [Vitamin B-1] 100 mg PO DAILY tab Continue levETIRAcetam [Keppra] 500 mg PO Q12H #60 tab Clopidogrel [Plavix] 75 mg PO DAILY #30 tab SUMAtriptan succinate 50 mg PO DAILY Pantoprazole Sodium [Protonix] 20 mg PO DAILY Melatonin 3 mg PO HS Aspirin 81 mg PO DAILY 6 Days #30 tab Metoprolol Succinate (ER) [Toprol XL] 25 mg PO DAILY Losartan Potassium [Cozaar] 25 mg PO DAILY Pravastatin Sodium [Pravachol] 40 mg PO HS Discharge Medication List Aspirin 81 mg PO DAILY 6 Days #30 tab 09/14/21 [Rx] Clopidogrel [Plavix] 75 mg PO DAILY #30 tab 09/14/21 [Rx] levETIRAcetam [Keppra] 500 mg PO Q12H #60 tab 09/14/21 [Rx] Losartan Potassium [Cozaar] 25 mg PO DAILY 10/01/21 [History] Metoprolol Succinate (ER) [Toprol XL] 25 mg PO DAILY 10/01/21 [History] Pravastatin Sodium [Pravachol] 40 mg PO HS 10/01/21 [History] Melatonin 3 mg PO HS 11/03/21 [History] Pantoprazole Sodium [Protonix] 20 mg PO DAILY 11/03/21 [History] SUMAtriptan succinate 50 mg PO DAILY 11/03/21 [History] Thiamine [Vitamin B-1] 100 mg PO DAILY tab 11/06/21 [Rx] Follow up Appointment(s)/Referral(s): Aguilar Thurston Jr, DO [Primary Care Provider] - 1-2 days [facility], [NON-STAFF] - 1-2 Days (PT, OT, evaluate and treat Palliative care as well) Discharge/Stand Alone Forms: Who Do I Call?, Community Resources, Help In The Home, Personal Corporate Tutor Discharge Disposition: HOME WITH HOME HEALTH SERVICES
== END 2021-11-06 13:05 | disposition home health service (06) | DRG 914 ==
LOC: EC 18:13 → 3SCARD 21:45 → 5NMEDONC 11-04 08:32
PROVIDERS: ADMIT Family Medicine; ATTEND Family Medicine
DX: S09.90XA Unspecified injury of head, initial encounter (principal); E44.0 Moderate protein-calorie malnutrition; R64 Cachexia; I69.351 Hemiplegia and hemiparesis following cerebral infarction affecting right dominant side; Z68.1 Body mass index [BMI] 19.9 or less, adult; G30.0 Alzheimer's disease with early onset; F02.80 Dementia in other diseases classified elsewhere, unspecified severity, without behavioral disturbance, psychotic disturbance, mood disturbance, and anxiety; G93.89 Other specified disorders of brain; M06.9 Rheumatoid arthritis, unspecified; J43.9 Emphysema, unspecified; G40.909 Epilepsy, unspecified, not intractable, without status epilepticus; Z66 Do not resuscitate; Z51.5 Encounter for palliative care; E87.6 Hypokalemia; E83.42 Hypomagnesemia; E86.0 Dehydration; I10 Essential (primary) hypertension; E78.5 Hyperlipidemia, unspecified; H91.90 Unspecified hearing loss, unspecified ear; I25.5 Ischemic cardiomyopathy; M54.50 Low back pain, unspecified; G89.29 Other chronic pain; I25.10 Atherosclerotic heart disease of native coronary artery without angina pectoris; I25.2 Old myocardial infarction; F32.A Depression, unspecified; G47.00 Insomnia, unspecified; K59.00 Constipation, unspecified; R32 Unspecified urinary incontinence; M19.90 Unspecified osteoarthritis, unspecified site; R29.6 Repeated falls; L60.0 Ingrowing nail; R30.9 Painful micturition, unspecified; R25.1 Tremor, unspecified; F10.11 Alcohol abuse, in remission; F17.210 Nicotine dependence, cigarettes, uncomplicated; Z71.6 Tobacco abuse counseling; Z79.82 Long term (current) use of aspirin; Z79.02 Long term (current) use of antithrombotics/antiplatelets; Z79.899 Other long term (current) drug therapy; Z60.2 Problems related to living alone; Z85.828 Personal history of other malignant neoplasm of skin; Z91.81 History of falling; Z87.19 Personal history of other diseases of the digestive system; Z86.79 Personal history of other diseases of the circulatory system; Z95.5 Presence of coronary angioplasty implant and graft; Z90.79 Acquired absence of other genital organ(s); Z86.010 Personal history of colon polyps; Z91.030 Bee allergy status; W18.30XA Fall on same level, unspecified, initial encounter; Y92.009 Unspecified place in unspecified non-institutional (private) residence as the place of occurrence of the external cause; Z80.3 Family history of malignant neoplasm of breast; Z82.49 Family history of ischemic heart disease and other diseases of the circulatory system; Z81.1 Family history of alcohol abuse and dependence
CPT/HCPCS: 36415; 70450; 71045; 72125; 80048; 80053; 80320; 81001; 82140; 83735; 84100; 84443; 84484; 85025; 93005; 94760; 96361; 96365; 96366; 96372; 96375; 99285

== ENCOUNTER 2022-04-02 13:48 | Inpatient (IN) | payer MEDICARE, BC ==
--- NOTE | 2022-04-02 14:22 | ED ---
General Adult HPI - General Source: patient, family, RN notes reviewed, old records reviewed Mode of arrival: EMS Limitations: no limitations <Kev Todd - Last Filed: 04/02/22 14:21> - General Source: patient, family, RN notes reviewed, old records reviewed <Rodrigo Pitt - Last Filed: 04/02/22 21:50> - General Chief complaint: Neuro Symptoms/Deficit Stated complaint: Dehydration Time Seen by Provider: 04/02/22 14:21 - History of Present Illness Initial comments: This is a 76-year-old male who presents emergency Department stating that he has chronic headaches but today's headache was much worse also he has been having diarrhea but the diarrhea is also much worse. Patient went to see the primary medical care doctor they wanted the patient to come in to be evaluated. (Kev Todd) Patient is a 76-year-old male who presents emergency department after being sent in by his PCPs the mid-level provider at Dr. Elliott's office over concern for headache and possible stroke. Patient has a history of CVAs with waxing and waning right-sided deficits and included weakness in the right lower extremity, weakness of the right upper extremity. Patient states he is currently having the symptoms for the last 3-4 days. Has chronic stuttering as well. States he also has chronic headaches that he is currently having. Denies any acute symptoms at this time. Denies chest pain, shortness of breath, abdominal pain, nausea, vomiting. Denies any sensory deficits. States HIS current neurological symptoms or chronic, wax and wane, and currently have been ongoing for a few days but he has been experiencing them intermittently for the last 3 years. Patient originally presented to the PCPs office over concern for decreased mobility at home. Presents for further evaluation at this time. Patient is on aspirin and Plavix. Denies any falls. Has no other acute complaints at this time.Patient states that the headache has a belt tightening sensation on the head. (Rodrigo Pitt) - Related Data Home Medications Medication Instructions Recorded Confirmed Losartan Potassium [Cozaar] 25 mg PO DAILY 10/01/21 04/02/22 Metoprolol Succinate (ER) [Toprol 25 mg PO DAILY 10/01/21 04/02/22 XL] Pravastatin Sodium [Pravachol] 40 mg PO HS 10/01/21 04/02/22 Melatonin 3 mg PO HS 11/03/21 04/02/22 Pantoprazole Sodium [Protonix] 20 mg PO DAILY 11/03/21 04/02/22 Diphenoxylate HCl/Atropine 1 tab PO QID PRN 04/02/22 04/02/22 [Lomotil 2.5-0.025 mg Tablet] Ramelteon [Rozerem] 8 mg PO HS 04/02/22 04/02/22 Tamsulosin HCl [Flomax] 0.4 mg PO DAILY 04/02/22 04/02/22 Temazepam [Restoril] 7.5 mg PO HS PRN 04/02/22 04/02/22 Previous Rx's Medication Instructions Recorded Aspirin 81 mg PO DAILY 6 Days #30 tab 09/14/21 Clopidogrel [Plavix] 75 mg PO DAILY #30 tab 09/14/21 levETIRAcetam [Keppra] 500 mg PO Q12H #60 tab 09/14/21 Thiamine [Vitamin B-1] 100 mg PO DAILY tab 11/06/21 Allergies Allergy/AdvReac Type Severity Reaction Status Date / Time venom-honey bee Allergy Anaphylaxis Verified 04/02/22 16:41 [bee venom (honey bee)] Review of Systems ROS Other: All systems not noted in ROS Statement are negative. <Kev Todd - Last Filed: 04/02/22 14:21> ROS Other: All systems not noted in ROS Statement are negative. <Rodrigo Pitt - Last Filed: 04/02/22 21:50> ROS Statement: Those systems with pertinent positive or pertinent negative responses have been documented in the HPI. Review of Systems: CONST: Denies fever EYES: Denies blurry vision ENT: Denies nasal congestion C/V: Denies Chest pain RESP: Denies shortness of breath GI: Denies abdominal pain : Denies dysuria SKIN: Denies rash. MSK: Denies joint pain. NEURO: Endorses headache (Rodrigo Pitt) Past Medical History Past Medical History: Coronary Artery Disease (CAD), Cancer, Chest Pain / Angina, COPD, CVA/TIA, Dementia, Hearing Disorder / Deafness, Hypertension, Myocardial Infarction (ID), Osteoarthritis (OA), Rheumatoid Arthritis (RA), Seizure Disorder Additional Past Medical History / Comment(s): Multiple CVAs with R sided weakness/mobility problems/FALLS, seizure after CVA, ischemic cardiomyopathy, increasing confusion per family, past ETOH abuse but none past couple months, concussions, chronic low back pain, skin cancer removed from nose, [place] bilaterally, diverticular disease/benign colon polyp Last Myocardial Infarction Date:: 2011 History of Any Multi-Drug Resistant Organisms: None Reported Past Surgical History: Bowel Resection, Cholecystectomy, Heart Catheterization With Stent, Orthopedic Surgery, Tonsillectomy Additional Past Surgical History / Comment(s): PCI/stents, 10/06/21 R brachiocephalic artery stenosis/angiogram and balloon angioplasty, Loop recorder, retinal detachments with 6 L eye surgeries and R eye surgery, sking cancer removed from nose, clavicular fracture with surgical repair, colonoscopy/polyp removed, orchiectomy. Past Anesthesia/Blood Transfusion Reactions: No Reported Reaction Date of Last Stent Placement:: 2019 Past Psychological History: Depression Smoking Status: Current every day smoker - Past Family History Daughter(s) Family Medical History: Cancer Additional Family Medical History / Comment(s): Breast cancer. Mother Additional Family Medical History / Comment(s): ETOH abuse Father Family Medical History: Myocardial Infarction (ID) <Kev Todd - Last Filed: 04/02/22 14:21> General Exam Limitations: no limitations <Kev Todd - Last Filed: 04/02/22 14:21> <Rodrigo Pitt - Last Filed: 04/02/22 21:50> - General Exam Comments Initial Comments: General: Appears in no acute distress. HEAD: Normal with no signs of head trauma. EYES: PERRLA, EOMI, conjunctiva normal, no discharge. Pupils are 3 mm equal bilaterally. ENT: Hearing grossly intact, normal oropharynx. RESPIRATORY: Clear breath sounds bilaterally. No wheezes, rales, or rhonchi. C/V: Regular rate and rhythm. S1 and S2 auscultated, no edema, peripheral pulses 2+ and intact throughout ABD: Abd is soft, nontender, nondistended EXT: Normal range of motion, no obvious deformity SKIN: No rashes or lesions observed on exposed skin. NEURO: Alert and oriented 4. Cranial nerves II through XII intact. Patient does have right sided weakness, no sensory deficits. GCS of 15. NIH of 4, with 1 point for ataxia the right upper extremity, 1. right upper extremity weakness, 2 points right lower extremity weakness. Patient has chronic stuttering which is present at this time without aphasia. Last known well was multiple days ago his symptoms have been present for 2-3 days per patient. (Rodrigo Pitt) Course Vital Signs 04/02/22 04/02/22 04/02/22 14:05 14:59 19:20 Temperature 97.7 F Pulse Rate 70 68 61 Respiratory 16 20 12 Rate Blood Pressure 98/68 110/77 119/83 O2 Sat by Pulse 98 99 96 Oximetry 04/02/22 19:31 Temperature Pulse Rate 65 Respiratory 12 Rate Blood Pressure 133/94 O2 Sat by Pulse 98 Oximetry Medical Decision Making - Lab Data Result diagrams: 04/02/22 14:12 04/02/22 14:12 - EKG Data -: EKG Interpreted by Me <Rodrigo Pitt - Last Filed: 04/02/22 21:50> - Medical Decision Making Was pt. sent in by a medical professional or institution (, PA, PRINT LINE INSPECTOR, urgent care, hospital, or alf...) When possible be specific @ -Yes, patient's PCPs office Did you speak to anyone other than the patient for history (EMS, parent, family, police, friend...)? What history was obtained from this source @ -Yes, patient's children who provided information corroborating the patient stating symptoms are chronic. Also conveyed that the patient wishes to be DNR/DNI. Like to discuss with hospice. Did you review nursing and triage notes (agree or disagree)? Why? @ -I reviewed and agree with nursing and triage notes Were old charts reviewed (outside hosp., previous admission, EMS record, old EKG, old radiological studies, urgent care reports/EKG's, alf records)? Report findings @ -yes. Old charts were reviewed. Differential Diagnosis (chest pain, altered mental status, abdominal pain women, abdominal pain men, vaginal bleeding, weakness, fever, dyspnea, syncope, headache, dizziness, GI bleed, back pain, seizure, CVA, palpatations, mental health)? @ -Differential Headache: Migraine, tension, cluster, carbon monoxide, central venous thrombosis, pension karma temporal arteritis, acute closure glaucoma, intercranial hemorrhage, mastoiditis, sinusitis, head injury, this is not meant to be an all-inclusive list. EKG interpreted by me (3pts min.). @ -As above X-rays interpreted by me (1pt min.). @ -Chest x-ray revealed no acute cardio pulmonary process CT interpreted by me (1pt min.). @ -CT brain and CT angiogram of the head and neck revealed no acute processes. Chronic findings and atrophy present. U/S interpreted by me (1pt. min.). @ -None done What testing was considered but not performed or refused? (CT, X-rays, U/S, labs)? Why? @ -None What meds were considered but not given or refused? Why? @ -None Did you discuss the management of the patient with other professionals (professionals i.e. , PA, PRINT LINE INSPECTOR, lab, RT, psych nurse, social media job titles, ground systems engineer, teacher, sba business development officer, case assembler)? Give summary @ -Yes, admitting physician Dr. Elliott who was in agreement with the workup and plan. Was smoking cessation discussed for >3mins.? @ -No Was critical care preformed (if so, how long)? @ -No Were there social determinants of health that impacted care today? How? (Homelessness, low income, unemployed, alcoholism, drug addiction, transportation, low edu. Level, literacy, decrease access to med. care, detention, rehab)? @ -No Was there de-escalation of care discussed even if they declined (Discuss DNR or withdrawal of care, Hospice)? DNR status @ -Yes. Patient requests to be evaluated by hospice and would like to be DNR/DNI. Patient is able to make his own decisions. He is alert and oriented. Understands what he is asking. Would still like to be made DNR/DNI. What co-morbidities impacted this encounter? (DM, HTN, Smoking, COPD, CAD, Cancer, CVA, ARF, Chemo, Hep., AIDS, mental health diagnosis, sleep apnea, morbid obesity)? @ -Prior stroke, chronic weakness Was patient admitted / discharged? Hospital course, mention meds given and route, prescriptions, significant lab abnormalities, going to OR and other pertinent info. @ -Based on the patient's presentation and physical exam, he presents with neurological findings as well as chronic headaches. All findings seem to be chronic in nature as they have been present for multiple days but they have been on and off for the last 3 years. Was sent in by his PCP for further evaluation, hospice evaluation, and possible placement. NIH is 4. Last known was to 3 days ago but symptoms are consistent with his chronic intermittent symptoms. Patient is not a TPA candidate as last known well was over 24 hours ago. Risks far outweigh the benefits. I did recommend a stroke workup. We also obtained broad laboratory studies. Family was in agreement this plan. Patient was in agreement this plan. Hospice did evaluate the patient in the emergency department as requested by Dr. Elliott. He does not meet hospice criteria at this time. EKG revealed no acute findings. CT imaging and chest x-ray revealed no acute findings. There are chronic findings on CT imaging the brain. Patient is hypokalemic at 3.1 which will be replenished. Troponin is undetectable. Urine is unremarkable. On reevaluation, I would like to admit the patient at this time. He was in agreement this plan. I did discuss the case with Dr. Elliott the patient's PCP who is in agreement with the plan. Patient will be admitted for further evaluation. Neurology is consulted. He did receive 325 mg of aspirin. Patient was given a migraine cocktail with Benadryl, Compazine, 1 L fluid bolus and his headache resolved. Undiagnosed new problem with uncertain prognosis? @ -No Drug Therapy requiring intensive monitoring for toxicity (Heparin, Nitro, Insulin, Cardizem)? @ -No Were any procedures done? @ -No Diagnosis/symptom? @ -Neurological deficits Acute, or Chronic, or Acute on Chronic? @ -Acute on chronic Uncomplicated (without systemic symptoms) or Complicated (systemic symptoms)? @ -Complicated Side effects of treatment? @ -No Exacerbation, Progression, or Severe Exacerbation? @ -No Poses a threat to life or bodily function? How? (Chest pain, [place], ID, pneumonia, PE, COPD, DKA, ARF, appy, cholecystitis, CVA, Diverticulitis, Homicidal, Suicidal, threat to staff... and all critical care pts) @ -Effects the ability to care for himself, can result in significant morbidity and mortality. Diagnosis/symptom? @ -Headache Acute, or Chronic, or Acute on Chronic? @ -Acute on chronic Uncomplicated (without systemic symptoms) or Complicated (systemic symptoms)? @ -Uncomplicated Side effects of treatment? @ -none Exacerbation, Progression, or Severe Exacerbation] @ -no Poses a threat to life or bodily function? @ -no Diagnosis/symptom? @ -Admit for placement, debility Acute, or Chronic, or Acute on Chronic? @ -Acute on chronic Uncomplicated (without systemic symptoms) or Complicated (systemic symptoms)? @ -Complicated Side effects of treatment? @ -none Exacerbation, Progression, or Severe Exacerbation] @ -no Poses a threat to life or bodily function? @ -Effects the ability of the patient to care for himself. Can result in significant morbidity and mortality. Diagnosis/symptom? @ -Hypokalemia Acute, or Chronic, or Acute on Chronic? @ -Acute Uncomplicated (without systemic symptoms) or Complicated (systemic symptoms)? @ -Complicated Side effects of treatment? @ -none Exacerbation, Progression, or Severe Exacerbation] @ -no Poses a threat to life or bodily function? @ -Can result in significant electrolyte derrangements, morbidity and mortality. (Rodrigo Pitt) - Lab Data Lab Results 04/02/22 04/02/22 04/02/22 Range/Units 14:12 14:12 14:12 WBC 7.3 (3.8-10.6) k/uL RBC 4.13 L (4.30-5.90) m/uL Hgb 13.3 (13.0-17.5) gm/dL Hct 40.7 (39.0-53.0) % MCV 98.6 (80.0-100.0) fL MCH 32.2 (25.0-35.0) pg MCHC 32.7 (31.0-37.0) g/dL RDW 13.2 (11.5-15.5) % Plt Count 214 (150-450) k/uL MPV 8.9 Neutrophils % 60 % Lymphocytes % 28 % Monocytes % 8 % Eosinophils % 1 % Basophils % 1 % Neutrophils # 4.4 (1.3-7.7) k/uL Lymphocytes # 2.1 (1.0-4.8) k/uL Monocytes # 0.6 (0-1.0) k/uL Eosinophils # 0.1 (0-0.7) k/uL Basophils # 0.0 (0-0.2) k/uL PT 10.9 (9.0-12.0) sec INR 1.0 (<1.2) APTT 24.8 (22.0-30.0) sec Sodium 139 (137-145) mmol/L Potassium 3.1 L (3.5-5.1) mmol/L Chloride 111 H (98-107) mmol/L Carbon Dioxide 24 (22-30) mmol/L Anion Gap 4 mmol/L BUN 16 (9-20) mg/dL Creatinine 0.88 (0.66-1.25) mg/dL Est GFR (CKD-EPI)AfAm >90 (>60 ml/min/1.73 sqM) Est GFR (CKD-EPI)NonAf 85 (>60 ml/min/1.73 sqM) Glucose 80 (74-99) mg/dL Calcium 8.3 L (8.4-10.2) mg/dL Total Bilirubin 0.9 (0.2-1.3) mg/dL AST 23 (17-59) U/L ALT 11 (4-49) U/L Alkaline Phosphatase 58 (38-126) U/L Troponin I (0.000-0.034) ng/mL Total Protein 6.0 L (6.3-8.2) g/dL Albumin 3.3 L (3.5-5.0) g/dL Urine Color Urine Appearance (Clear) Urine pH (5.0-8.0) Ur Specific [place] (1.001-1.035) Urine Protein (Negative) Urine Glucose (UA) (Negative) Urine Ketones (Negative) Urine Blood (Negative) Urine Nitrite (Negative) Urine Bilirubin (Negative) Urine Urobilinogen (<2.0) mg/dL Ur Leukocyte Esterase (Negative) Serum Alcohol <10 mg/dL 04/02/22 04/02/22 Range/Units 14:12 17:38 WBC (3.8-10.6) k/uL RBC (4.30-5.90) m/uL Hgb (13.0-17.5) gm/dL Hct (39.0-53.0) % MCV (80.0-100.0) fL MCH (25.0-35.0) pg MCHC (31.0-37.0) g/dL RDW (11.5-15.5) % Plt Count (150-450) k/uL MPV Neutrophils % % Lymphocytes % % Monocytes % % Eosinophils % % Basophils % % Neutrophils # (1.3-7.7) k/uL Lymphocytes # (1.0-4.8) k/uL Monocytes # (0-1.0) k/uL Eosinophils # (0-0.7) k/uL Basophils # (0-0.2) k/uL PT (9.0-12.0) sec INR (<1.2) APTT (22.0-30.0) sec Sodium (137-145) mmol/L Potassium (3.5-5.1) mmol/L Chloride (98-107) mmol/L Carbon Dioxide (22-30) mmol/L Anion Gap mmol/L BUN (9-20) mg/dL Creatinine (0.66-1.25) mg/dL Est GFR (CKD-EPI)AfAm (>60 ml/min/1.73 sqM) Est GFR (CKD-EPI)NonAf (>60 ml/min/1.73 sqM) Glucose (74-99) mg/dL Calcium (8.4-10.2) mg/dL Total Bilirubin (0.2-1.3) mg/dL AST (17-59) U/L ALT (4-49) U/L Alkaline Phosphatase (38-126) U/L Troponin I <0.012 (0.000-0.034) ng/mL Total Protein (6.3-8.2) g/dL Albumin (3.5-5.0) g/dL Urine Color Yellow Urine Appearance Clear (Clear) Urine pH 6.0 (5.0-8.0) Ur Specific [place] 1.024 (1.001-1.035) Urine Protein Negative (Negative) Urine Glucose (UA) Negative (Negative) Urine Ketones Negative (Negative) Urine Blood Negative (Negative) Urine Nitrite Negative (Negative) Urine Bilirubin Negative (Negative) Urine Urobilinogen <2.0 (<2.0) mg/dL Ur Leukocyte Esterase Negative (Negative) Serum Alcohol mg/dL - EKG Data EKG Comments: 12-lead Electrocardiogram Interpretation Note EKG was reviewed and interpreted by myself. 12-lead ECG performed at 1444 is interpreted by me as revealing normal sinus rhythm at a rate of 60 beats per minute. [place] is normal. NE interval is 157 ms, QRS duration is 92 ms, QTc is 424 ms.. There were no ST or T wave abnormalities to suggest myocardial ischemia or injury. R wave progression across the precordium was satisfactory. By my interpretation this EKG is non-diagnostic for acute ischemia. When c ompared with prior EKG from October 2021, no significant change. (Rodrigo Pitt) Disposition <Kev Todd - Last Filed: 04/02/22 14:21> Time of Disposition: 17:50 <Rodrigo Pitt - Last Filed: 04/02/22 21:50> Clinical Impression: Neurological deficit present, Headache, Hypokalemia, Debility Disposition: ADMITTED IP TO THIS HOSP Condition: Stable Referrals: Aguilar Thurston Jr, DO [Primary Care Provider] - 1-2 days
--- NOTE | 2022-04-02 14:43 | XR ---
EXAMINATION TYPE: XR chest 2V DATE OF EXAM: 04/02/2022 COMPARISON: 11/03/2021 HISTORY: 76-year-old male confusion, mental status TECHNIQUE: AP and lateral views FINDINGS: Some irregularity along the medial aspect of the right clavicle. Heart upper limits of normal size. L oop recorder device projecting at the left hilum. Hyperinflation. No consolidation or pleural effusio n. IMPRESSION: 1. COPD. No acute cardiopulmonary process. 2. Query old healed fracture deformity medial right clavicle.
--- NOTE | 2022-04-02 14:50 | CT ---
EXAMINATION TYPE: CT brain wo con for TPA DATE OF EXAM: 04/02/2022 COMPARISON: 11/03/2021 HISTORY: 76-year-old male with neurologic deficit, acute, stroke suspected. Weakness, hx stroke TECHNIQUE: Examination was done in axial plane without intravenous contrast. Coronal and sagittal r econstructions performed. CT DLP: 1137.4 mGycm Automated exposure control for dose reduction was used. FINDINGS: Redemonstrated moderate sized area of encephalomalacia left frontoparietal junction relating to prior infarct. Mild white matter hypodensities elsewhere throughout the cerebral hemispheres. Some new hyp odensity posterior limb left in internal capsule likely some gliosis of white matter tracts. There is no evidence of acute intracranial hemorrhage, acute ischemic changes, mass, mass-effect, or extra-axial fluid collection. There is no effacement of cerebral sulci or basal subarachnoid cister ns. There is no hydrocephalus. There is no midline shift. Albarran-white matter distinction is preserv ed. Moderate mucosal thickening ethmoid air cells. Partial opacification of right-sided mastoid air cells . Cerumen in left external auditory canal. Orbits and globes are intact. Rightward nasal septal devia tion. IMPRESSION: 1. Sizable area of encephalomalacia left frontoparietal junction relating to prior infarct, similar t o 11/03/2021. No acute intracranial abnormality seen. 2. Partial opacification of right mastoid air cells. Correlate for any mastoid pain to exclude mastoi ditis.
[2022-04-02 15:01] LABS: Basophils % (A) 1 %; Eosinophils # (A) 0.1 k/uL (0-0.7); Eosinophils % (A) 1 %; HCT 40.7 % (39.0-53.0); HGB 13.3 gm/dL (13.0-17.5); Lymphocytes # (A) 2.1 k/uL (1.0-4.8); Lymphocytes % (A) 28 %; MCH 32.2 pg (25.0-35.0); MCHC 32.7 g/dL (31.0-37.0); MCV 98.6 fL (80.0-100.0); Mean Platelet Volume 8.9; Monocytes # (A) 0.6 k/uL (0-1.0); Monocytes % (A) 8 %; Neutrophils # (A) 4.4 k/uL (1.3-7.7); Neutrophils % (A) 60 %; Platelet Count 214 k/uL (150-450); RBC 4.13 m/uL (4.30-5.90); RDW 13.2 % (11.5-15.5); WBC 7.3 k/uL (3.8-10.6)
[2022-04-02 15:12] LABS: Partial Thromboplastin Time 24.8 sec (22.0-30.0); Prothrombin Time 10.9 sec (9.0-12.0)
[2022-04-02] MEDS ORDERED: SODIUM CHLORIDE 0.9% 1,000 ML IV STA (15:17)
[2022-04-02] MEDS ORDERED: diphenhydrAMINE 50 MG/ML 1 ML VIAL IVP STA (15:17)
[2022-04-02] MEDS ORDERED: PROCHLORPERAZINE INJ 10 MG/2 ML VIAL IVP STA (15:17)
[2022-04-02 15:21] LABS: ALT 11 U/L (4-49); AST 23 U/L (17-59); African American GFR (CKD) >90 (>60 ml/min/1.73 sqM); Albumin 3.3 g/dL (3.5-5.0); Alcohol <10 mg/dL; Alkaline Phosphatase 58 U/L (38-126); Anion Gap 4 mmol/L; Blood Urea Nitrogen 16 mg/dL (9-20); Calcium 8.3 mg/dL (8.4-10.2); Carbon Dioxide 24 mmol/L (22-30); Chloride 111 mmol/L (98-107); Glucose 80 mg/dL (74-99); Non-African American GFR(CKD) 85 (>60 ml/min/1.73 sqM); Potassium 3.1 mmol/L (3.5-5.1); Sodium 139 mmol/L (137-145); Total Bilirubin 0.9 mg/dL (0.2-1.3)
--- NOTE | 2022-04-02 16:54 | CT ---
EXAMINATION TYPE: CT angio head neck DATE OF EXAM: 04/02/2022 HISTORY: Headache, neuro symptoms acute onset. COMPARISON: CTA Head Neck September 11, 2021 CT DLP: 377 mGycm. Automated Exposure Control for Dose Reduction was Utilized. TECHNIQUE: CTA scan of the head and neck is performed with IV Contrast, patient injected with 65cc m L of Isovue 370, axial images are obtained, coronal and sagittal reformatted images are reviewed. 3D reconstructed images are created on an independent workstation and reviewed. FINDINGS: Carotid/Vascular Structures: Mild peripheral plaque aortic arch redemonstrated. Marked improvement in severe focal stenosis in the right brachiocephalic artery from prior study. No significant stenosis in the 3 great vessels on current exam. There is moderate peripheral noncalcified plaque in the left subclavian artery redemonstrated with less than 50% stenosis. The common carotid arteries show no sig nificant plaque or stenosis. There is persistent moderate peripheral calcified plaque at right caroti d bulb extending into proximal internal carotid artery without significant stenosis. There is mild-to -moderate peripheral calcified plaque left carotid bulb extending into proximal internal carotid henrietta ry without significant stenosis. Patent external carotid arteries bilaterally without significant bibi nosis. Left vertebral artery is dominant. Vertebral arteries are patent to the basilar junction. There are h ypoplastic bilateral posterior communicating arteries redemonstrated. No significant focal stenosis o r aneurysm in the posterior circulation. Anterior circulation show small caliber patent anterior comm unicating artery. No significant focal stenosis or aneurysm is seen. Other: There is levoconvex scoliosis centered in the upper thoracic spine redemonstrated IMPRESSION: No significant stenosis in common or internal carotid arteries bilaterally. No significa nt stenosis or aneurysmal at the level of [place]. Interval successful treatment of signific ant stenosis right brachiocephalic artery. NASCET criteria was used in interpretation of this exam?
[2022-04-02] MEDS ORDERED: POTASSIUM CHLORIDE 20 MEQ in WATER FOR INJECTION 1 100ML.BAG IVPB STA (17:18)
[2022-04-02 18:00] LABS: Appearance,Urine Clear (Clear); Bilirubin,Urine Negative (Negative); Blood,Urine Negative (Negative); Color,Urine Yellow; Glucose,Urine (UA) Negative (Negative); Ketones,Urine Negative (Negative); Leukocyte Esterase,Urine Negative (Negative); Nitrite,Urine Negative (Negative); Protein,Urine Negative (Negative); Specific Gravity,Urine 1.024 (1.001-1.035); Urobilinogen,Urine <2.0 mg/dL (<2.0)
[2022-04-02] MEDS ORDERED: ASPIRIN 325 MG TAB PO STA (18:22)
[2022-04-02] MEDS ORDERED: TEMAZEPAM 7.5 MG CAP PO PRN (18:27)
[2022-04-02] MEDS ORDERED: ZOLPIDEM 5 MG TAB PO SCH (21:00)
[2022-04-02] MEDS: levETIRAcetam 500 MG TAB PO SCH (22:42)
[2022-04-02] MEDS: MELATONIN 3 MG TABLET PO SCH (22:43)
[2022-04-02] MEDS: SODIUM CHLORIDE 0.9% 1,000 ML IV SCH (22:43)
[2022-04-02] MEDS: PRAVASTATIN SODIUM 40 MG TAB PO SCH (22:43)
[2022-04-02] MEDS: HEPARIN SODIUM,PORCINE/PF 5,000 UNIT/0.5 ML SYRINGE SQ SCH (22:43)
[2022-04-03] MEDS: SODIUM CHLORIDE 0.9% 1,000 ML IV SCH (05:51)
[2022-04-03 09:05] LABS: African American GFR (CKD) >90 (>60 ml/min/1.73 sqM); Anion Gap 4 mmol/L; Blood Urea Nitrogen 14 mg/dL (9-20); Calcium 8.3 mg/dL (8.4-10.2); Carbon Dioxide 21 mmol/L (22-30); Chloride 117 mmol/L (98-107); Glucose 74 mg/dL (74-99); Non-African American GFR(CKD) 87 (>60 ml/min/1.73 sqM); Potassium 3.5 mmol/L (3.5-5.1); Sodium 142 mmol/L (137-145)
[2022-04-03 09:29] LABS: Basophils # (A) 0.1 k/uL (0-0.2); Basophils % (A) 1 %; Eosinophils # (A) 0.1 k/uL (0-0.7); Eosinophils % (A) 2 %; HCT 40.7 % (39.0-53.0); HGB 13.6 gm/dL (13.0-17.5); Lymphocytes # (A) 1.8 k/uL (1.0-4.8); Lymphocytes % (A) 26 %; MCHC 33.3 g/dL (31.0-37.0); MCV 98.9 fL (80.0-100.0); Mean Platelet Volume 9.7; Monocytes # (A) 0.6 k/uL (0-1.0); Monocytes % (A) 8 %; Neutrophils # (A) 4.2 k/uL (1.3-7.7); Neutrophils % (A) 61 %; Platelet Count 178 k/uL (150-450); RBC 4.12 m/uL (4.30-5.90); WBC 6.9 k/uL (3.8-10.6)
[2022-04-03] MEDS: PANTOPRAZOLE 40 MG TABLET PO SCH (09:30)
[2022-04-03] MEDS: ASPIRIN 81 MG PO SCH (09:31)
[2022-04-03] MEDS: CLOPIDOGREL 75 MG TAB PO SCH (09:31)
[2022-04-03] MEDS: levETIRAcetam 500 MG TAB PO SCH ×2 (09:31→20:47)
[2022-04-03] MEDS: LOSARTAN 25 MG TAB PO SCH (09:32)
[2022-04-03] MEDS: HEPARIN SODIUM,PORCINE/PF 5,000 UNIT/0.5 ML SYRINGE SQ SCH ×2 (09:33→17:46)
[2022-04-03] MEDS: TAMSULOSIN 0.4 MG CAP.ER.24H PO SCH (09:33)
[2022-04-03] MEDS: METOPROLOL SUCCINATE (ER) 25 MG TAB.ER.24H PO SCH (09:33)
[2022-04-03] MEDS ORDERED: MAGNESIUM SULFATE-D5W PMX 1 GM in DEXTROSE/WATER 1 100ML.BAG IVPB ONE (09:51)
[2022-04-03] MEDS ORDERED: ACETAMINOPHEN IV (For NPO) 1,000 MG in EMPTY BAG 1 BAG IVPB STA (09:54)
--- NOTE | 2022-04-03 10:19 | P.CNNES ---
History of Present Illness Consult date: 04/03/22 Requesting physician: Rodrigo Pitt Reason for Consult: neuro deficits, concern for CVA History of Present Illness: This is a 76-year-old gentleman with history of stroke with residual right hemiparesis, seizure, tension-type headache, concussion, coronary artery disease, tobacco use and history of alcohol use who presented emergency department on 04/02/2022 because of worsening of the headache and diarrhea. It seems the patient has been having waxing and waning right-sided deficit worsening of weakness of right upper and lower extremity for the last 3-4 days but stated had if for at least few years but worsening last couple days prior to presenting to the hospital. Patient has chronic headache that is fluctuate and he feels that headache is a back again. He feels the headache feels like a belt tightening of the head. Denies any photophobia, phonophobia, nausea or vomiting. He describes the pain as a 9/10 and without radiation. He was evaluated by his primary care physician who notified him to come to the hospital to rule out stroke. Patient is on aspirin 81 mg and Plavix 75 mg and pravastatin 40 mg daily. Patient stated that he has old weakness over the right side and denies any worsening of the weakness currently. Denies of any new numbness. Denies of any visual disturbance Note the patient was evaluated by Dr. Horacio duarte on 09/13/2021 and he felt the patient had new onset seizure and a recent history of acute stroke involving bilateral hemispheric region left more than right watershed territory and patient has tension-type headache. Please review his note for further details. Some of the workup during his hospital visit consisted of: Is afebrile. Blood cells within normal limits Serum alcohol less than 10 CT of the head is reported as sizable areas of in the left frontoparietal junction related to prior infarct, similar to 11/03/2021. No acute intracranial abnormality seen. Partial opacification the right mastoid air cell. Correlate for any mastoid pain to exclude mastoiditis. I personally reviewed the CT and I agree that there is no acute or subacute ischemia and the patient does have an old encephalomalacia as reported above. No bleeding noted The angiography of the head and neck was reported as no significant stenosis in the common or internal carotid arteries bilaterally. No significant stenosis or aneurysm at the level [place]. Interval successful treatment of significant stenosis of the right. Brachiocephalic artery. Personal reviewed the EKG report in there is no A. fib or flutter reported. Review of Systems Review of system: The 12 point system was reviewed and apparent positive and negative per HPI. Past Medical History Past Medical History: Coronary Artery Disease (CAD), Cancer, Chest Pain / Angina, COPD, CVA/TIA, Dementia, Hearing Disorder / Deafness, Hypertension, Myocardial Infarction ([place]), Osteoarthritis (OA), Rheumatoid Arthritis ([place]), Seizure Disorder Additional Past Medical History / Comment(s): Multiple CVAs with R sided weakness/mobility problems/FALLS, seizure after CVA, ischemic cardiomyopathy, increasing confusion per family, past ETOH abuse but none past couple months, concussions, chronic low back pain, skin cancer removed from nose, [place] CHIN bilaterally, diverticular disease/benign colon polyp Last Myocardial Infarction Date:: 2011 History of Any Multi-Drug Resistant Organisms: None Reported Past Surgical History: Bowel Resection, Cholecystectomy, Heart Catheterization With Stent, Orthopedic Surgery, Tonsillectomy Additional Past Surgical History / Comment(s): PCI/stents, 10/06/21 R bra chiocephalic artery stenosis/angiogram and balloon angioplasty, Loop recorder, retinal detachments with 6 L eye surgeries and R eye surgery, sking cancer removed from nose, clavicular fracture with surgical repair, colonoscopy/polyp removed, orchiectomy. Past Anesthesia/Blood Transfusion Reactions: No Reported Reaction Date of Last Stent Placement:: 2019 Past Psychological History: Depression Smoking Status: Current every day smoker - Past Family History Daughter(s) Family Medical History: Cancer Additional Family Medical History / Comment(s): Breast cancer. Mother Additional Family Medical History / Comment(s): ETOH abuse Father Family Medical History: Myocardial Infarction ([place]) Medications and Allergies Home Medications Medication Instructions Recorded Confirmed Type Aspirin 81 mg PO DAILY 6 Days #30 tab 09/14/21 04/02/22 Rx Clopidogrel [Plavix] 75 mg PO DAILY #30 tab 09/14/21 04/02/22 Rx levETIRAcetam [Keppra] 500 mg PO Q12H #60 tab 09/14/21 04/02/22 Rx Losartan Potassium [Cozaar] 25 mg PO DAILY 10/01/21 04/02/22 History Metoprolol Succinate (ER) [Toprol 25 mg PO DAILY 10/01/21 04/02/22 History XL] Pravastatin Sodium [Pravachol] 40 mg PO HS 10/01/21 04/02/22 History Melatonin 3 mg PO HS 11/03/21 04/02/22 History Pantoprazole Sodium [Protonix] 20 mg PO DAILY 11/03/21 04/02/22 History Thiamine [Vitamin B-1] 100 mg PO DAILY tab 11/06/21 04/02/22 Rx Diphenoxylate HCl/Atropine 1 tab PO QID PRN 04/02/22 04/02/22 History [Lomotil 2.5-0.025 mg Tablet] Ramelteon [Rozerem] 8 mg PO HS 04/02/22 04/02/22 History Tamsulosin HCl [Flomax] 0.4 mg PO DAILY 04/02/22 04/02/22 History Temazepam [Restoril] 7.5 mg PO HS PRN 04/02/22 04/02/22 History Allergies Allergy/AdvReac Type Severity Reaction Status Date / Time venom-honey bee Allergy Anaphylaxis Verified 04/02/22 16:41 [bee venom (honey bee)] Physical Examination - Vital Signs Vital Signs: Vital Signs Temp Pulse Resp BP Pulse Ox 04/03/22 07:00 59 L 16 114/66 98 04/03/22 05:33 59 L 16 102/67 97 04/03/22 03:09 56 L 16 114/75 97 04/03/22 02:09 56 L 14 103/73 99 04/03/22 01:00 65 16 106/68 04/03/22 00:00 64 15 102/72 97 04/02/22 23:51 62 12 102/72 97 04/02/22 23:00 66 13 117/79 98 04/02/22 22:28 60 121/78 96 04/02/22 22:00 58 L 7 L 136/82 97 04/02/22 21:00 53 L 13 134/87 98 04/02/22 20:00 57 L 14 133/94 04/02/22 19:31 65 12 133/94 98 04/02/22 19:20 61 12 119/83 96 04/02/22 19:00 58 L 9 L 121/78 04/02/22 18:00 48 L 7 L 130/77 04/02/22 17:00 51 L 11 L 143/78 04/02/22 16:00 51 L 10 L 111/76 98 04/02/22 15:24 60 7 L 04/02/22 14:59 68 20 110/77 99 04/02/22 14:05 97.7 F 70 16 98/68 98 GENERAL: The patient is lying in bed and is not in acute distress. CHEST: The heart rate is regular rate rhythm. No murmurs to auscultation. LUNG: Clear to auscultation bilaterally no wheezing noted throughout. Not labored breathing. ABDOMEN/GI: Bowel sounds present in all 4 quadrants. No tenderness to palpation throughout. NEUROLOGICAL: Higher mental function: The patient is awake, alert, oriented to self, place and time. Patient is following commands. No aphasia and no neglect. Cranial nerves: The pupils are round, equal and reactive to light and accommodation. Visual [place] are full to confrontation throughout. Extraocular movement is intact no nystagmus is noted. Facial sensation is normal to touch throughout. The facial strength is normal throughout. Hearing is normal bilat erally to hand rub. Tongue is midline and moved [id number] without any difficulty. No dysarthria is noted. Shoulder shrug is normal bilaterally. Motor: The strength is 4--4+over the right side. Otherwise 5 over 5 throughout left. Normal tone and bulk. Cerebellum: Normal finger to nose bilaterally. Sensation: Sensation is decreased to touch over the right side (old). Reflexes (right/left): 1+ throughout. Plantars are mute bilaterally. Results - Laboratory Findings CBC and BMP: 04/03/22 08:11 04/03/22 08:11 Abnormal Lab Findings: Abnormal Labs 04/02/22 04/02/22 04/03/22 14:12 14:12 08:11 RBC 4.13 L 4.12 L Potassium 3.1 L Chloride 111 H Carbon Dioxide Calcium 8.3 L Total Protein 6.0 L Albumin 3.3 L 04/03/22 08:11 RBC Potassium Chloride 117 H Carbon Dioxide 21 L Calcium 8.3 L Total Protein Albumin Assessment and Plan Assessment: Waxing and waning right-sided upper and lower extremity weakness worsening over past 3-4 days: Rule out acute to subactue ischemic stroke vs seizure History of stroke (left >right hemisphere) with residual right hemiparesis History of seizure Tension-type headache History of concussion Coronary artery disease Tobacco History of alcohol use Plan: I ordered MRI of the brain to rule out any acute or subacute ischemia I ordered a routine EEG since the patient's having waxing waning symptoms to ru le out any seizure or epileptiform discharges that is ongoing especially with a history of stroke She is resumed on his home medication of aspirin 81, Plavix 75 mg and pravastatin 40 mg daily at bedtime. This is sufficient for secondary stroke prophylaxis. Continue Keppra 500 mg every 12 hours Lipid panels ordered the is pending Continue neuro checks On cardiac monitoring PT OT and PARKING CONTROL OFFICER are consulted We'll defer the rest of the medical management to the primary team Patient is on subcu heparin 5000 units every 8 hours for DVT prophylaxis The plan is discussed with patient. Thank you for the consultation Time with Patient: Greater than 30
[2022-04-03 12:01] LABS: Magnesium 1.3 mg/dL (1.6-2.3)
[2022-04-03] MEDS ORDERED: Magnesium Replacement Protocol 1 EACH MISC MISCELLANE PRN (14:57)
[2022-04-03] MEDS ORDERED: Potassium Replacement Protocol 1 EACH MISC MISCELLANE PRN (14:58)
--- NOTE | 2022-04-03 15:04 | P.HPIM ---
History of Present Illness H&P Date: 04/03/22 Chief Complaint: Neuro deficits at PCPs office, concern for CVA This is a 76-year-old gentleman past medical history of CVA , seizures, CAD, hypertension, hyperlipidemia, nicotine dependence, alcohol abuse and multiple other medical issues brought into the ER by EMS. Referred to the ER by PCPs office related to fluctuating right-sided weakness, headache, possible CVA exi sting over the last 3-4 days. Denies falls, no syncope. Denies chest pain, palpitations or shortness of breath. Troponin negative. EKG reveals sinus rhythm with occasional PVC. Denies lightheadedness dizziness or focal deficits. Patient discharged from subacute rehab approximately 2 months ago. Afebrile, normal WBC, hemoglobin 13.3, platelets 214, sodium 139. Received potassium supplements in the ER for potassium at 3.1, currently up to 3.5. Magnesium 1.3.Renal function stable. UA negative. Serum alcohol less than 10. Blood pressure stable, maintaining O2 sats in the mid to high 90s on room air. Chest x-ray reported no acute cardiopulmonary process. Brain CT reported similar to 0 11/03/2021 with no acute intracranial abnormality seen. CT angiogram head and neck reported no significant stenosis and common or internal carotid arteries bilaterally, no significant stenosis or aneurysmal at the [place], interval successful treatment of significant stenosis of the right b rachiocephalic artery. Patient currently reports symptom free, walking around the bedside in his ER room. Denies headache currently. Review of Systems ROS Statement: Those systems with pertinent positive or pertinent negative responses have been documented in the HPI. ROS Other: All systems not noted in ROS Statement are negative. Past Medical History Past Medical History: Coronary Artery Disease (CAD), Cancer, Chest Pain / Angina, COPD, CVA/TIA, Dementia, Hearing Disorder / Deafness, Hypertension, [place]ocardial Infarction ([place]), Osteoarthritis (OA), Rheumatoid Arthritis ([place]), Seizure Disorder Additional Past Medical History / Comment(s): Multiple CVAs with R sided weakness/mobility problems/FALLS, seizure after CVA, ischemic cardiomyopathy, increasing confusion per family, past ETOH abuse but none past couple months, concussions, chronic low back pain, skin cancer removed from nose, [place] bilaterally, diverticular disease/benign colon polyp Last Myocardial Infarction Date:: 2011 History of Any Multi-Drug Resistant Organisms: None Reported Past Surgical History: Bowel Resection, Cholecystectomy, Heart Catheterization With Stent, Orthopedic Surgery, Tonsillectomy Additional Past Surgical History / Comment(s): PCI/stents, 10/06/21 R brachiocephalic artery stenosis/angiogram and balloon angioplasty, Loop recorder, retinal detachments with 6 L eye surgeries and R eye surgery, sking cancer removed from nose, clavicular fracture with surgical repair, colonoscopy/polyp removed, orchiectomy. Past Anesthesia/Blood Transfusion Reactions: No Reported Reaction Date of Last Stent Placement:: 2019 Past Psychological History: Depression Smoking Status: Current every day smoker - Past Family History Daughter(s) Family Medical History: Cancer Additional Family Medical History / Comment(s): Breast cancer. Mother Additional Family Medical History / Comment(s): ETOH abuse Father Family Medical History: Myocardial Infarction ([place]) Medications and Allergies Home Medications Medication Instructions Recorded Confirmed Type Aspirin 81 mg PO DAILY 6 Days #30 tab 09/14/21 04/02/22 Rx Clopidogrel [Plavix] 75 mg PO DAILY #30 tab 09/14/21 04/02/22 Rx levETIRAcetam [Keppra] 500 mg PO Q12H #60 tab 09/14/21 04/02/22 Rx Losartan Potassium [Cozaar] 25 mg PO DAILY 10/01/21 04/02/22 History Metoprolol Succinate (ER) [Toprol 25 mg PO DAILY 10/01/21 04/02/22 History XL] Pravastatin Sodium [Pravachol] 40 mg PO HS 10/01/21 04/02/22 History Melatonin 3 mg PO HS 11/03/21 04/02/22 History Pantoprazole Sodium [Protonix] 20 mg PO DAILY 11/03/21 04/02/22 History Thiamine [Vitamin B-1] 100 mg PO DAILY tab 11/06/21 04/02/22 Rx Diphenoxylate HCl/Atropine 1 tab PO QID PRN 04/02/22 04/02/22 History [Lomotil 2.5-0.025 mg Tablet] Ramelteon [Rozerem] 8 mg PO HS 04/02/22 04/02/22 History Tamsulosin HCl [Flomax] 0.4 mg PO DAILY 04/02/22 04/02/22 History Temazepam [Restoril] 7.5 mg PO HS PRN 04/02/22 04/02/22 History Allergies Allergy/AdvReac Type Severity Reaction Status Date / Time venom-honey bee Allergy Anaphylaxis Verified 04/02/22 16:41 [bee venom (honey bee)] Physical Exam Vitals: Vital Signs Temp Pulse Resp BP Pulse Ox 04/03/22 07:00 59 L 16 114/66 98 04/03/22 05:33 59 L 16 102/67 97 04/03/22 03:09 56 L 16 114/75 97 04/03/22 02:09 56 L 14 103/73 99 04/03/22 01:00 65 16 106/68 04/03/22 00:00 64 15 102/72 97 04/02/22 23:51 62 12 102/72 97 04/02/22 23:00 66 13 117/79 98 04/02/22 22:28 60 121/78 96 04/02/22 22:00 58 L 7 L 136/82 97 04/02/22 21:00 53 L 13 134/87 98 04/02/22 20:00 57 L 14 133/94 04/02/22 19:31 65 12 133/94 98 04/02/22 19:20 61 12 119/83 96 04/02/22 19:00 58 L 9 L 121/78 04/02/22 18:00 48 L 7 L 130/77 04/02/22 17:00 51 L 11 L 143/78 04/02/22 16:00 51 L 10 L 111/76 98 04/02/22 15:24 60 7 L 04/02/22 14:59 68 20 110/77 99 04/02/22 14:05 97.7 F 70 16 98/68 98 - Exam General: Cachectic, alert and oriented 3, sitting up in bed, no acute distress, Neck: Supple, no JVD Cardiac: Heart regular in rate and rhythm. No S3. No S4. No clicks, rubs. No murmur. Lungs:Clear to auscultation bilaterally. Abdomen: Soft, nondistended, No organomegaly. No guarding, Bowel sounds present. Extremes: No edema no cyanosis,normal pulses Skin: Warm and dry. Neurologic: Alert and oriented 3, speech fluent, minimal residual decreased strength on the right side, leg greater than arm. Residual decreased sensation of right-side. Lymphatic: No adenopathy. Results CBC & Chem 7: 04/03/22 08:11 04/03/22 08:11 Labs: Abnormal Lab Results - Last 24 Hours (Table) 04/02/22 04/02/22 04/03/22 Range/Units 14:12 14:12 08:11 RBC 4.13 L 4.12 L (4.30-5.90) m/uL Potassium 3.1 L (3.5-5.1) mmol/L Chloride 111 H (98-107) mmol/L Carbon Dioxide (22-30) mmol/L Calcium 8.3 L (8.4-10.2) mg/dL Total Protein 6.0 L (6.3-8.2) g/dL Albumin 3.3 L (3.5-5.0) g/dL 04/03/22 Range/Units 08:11 RBC (4.30-5.90) m/uL Potassium (3.5-5.1) mmol/L Chloride 117 H (98-107) mmol/L Carbon Dioxide 21 L (22-30) mmol/L Calcium 8.3 L (8.4-10.2) mg/dL Total Protein (6.3-8.2) g/dL Albumin (3.5-5.0) g/dL Assessment and Plan Assessment: Fluctuating right-sided weakness, possible CVA, possible seizure Generalized weakness, history of Multiple frequent falls, lives alone-children unable to stay with him History of seizure, CVA History of tension headaches, concussions CAD COPD Nicotine dependence Ongoing alcohol abuse Protein calorie malnutrition, moderate Plan:Continue on current medication regime ,monitoring and symptomatic treatment. Neurology workup in progress including MRI, EEG. Hospice had previously been consulted by PCPs office ; concern expressed about patient lives alone.On prior admission, patient was evaluated by psychiatry stating that patient did not appear to have decision-making capacity at that time .psychiatry re-consulted for competency. PT/OT consulted. Prognosis guarded given multiple complex medical issues. Discharge planning in progress. The impression and plan of care has been dictated as directed. : I performed a history and examination of this patient, discussed the same with the dictator. I agree with the dictator's note ,documented as a scribe. Any additional findings or plans will be noted.
[2022-04-03 17:53] LABS: Chol/HDL Ratio 2.73 Ratio; LDL Cholesterol,Calculated 74.4 mg/dL (0.0-131.0); VLDL Calculation 18.78 mg/dL (5.00-40.00)
[2022-04-03] MEDS ORDERED: ACETAMINOPHEN TAB 325 MG TAB PO PRN (18:28)
[2022-04-03] MEDS: TOPIRAMATE 25 MG TAB PO SCH (20:47)
[2022-04-03] MEDS: MIRTAZAPINE 15 MG TAB PO SCH (20:47)
[2022-04-03] MEDS: PRAVASTATIN SODIUM 40 MG TAB PO SCH (20:47)
[2022-04-03] MEDS: MELATONIN 3 MG TABLET PO SCH (20:47)
--- NOTE | 2022-04-03 20:51 | EEG ---
ELECTROENCEPHALOGRAM REPORT CLINICAL HISTORY: This is a 76-year-old gentleman, history of stroke, who presented because of waxing and weaning weakness of the right side that is worsening for the past 3 to 4 days prior to presenting to the hospital. The video EEG is obtained to evaluate for seizure epileptiform activity. RELEVANT MEDICATIONS: The patient is not on any antiepileptic drugs. EEG TYPE: A routine 21-channel EEG is performed with video using the 10/20 electrode placement system. DESCRIPTION: Wakefulness is only obtained. During awake state, it is hard to appreciate the background because of diffuse artifact, but it appears 8 to 8.5, but again it is very hard to ascertain. There was no physiological sleep architecture. I could not comment on the focal slowing because of limitation of the study. Interictal and ictal, again it is hard to ascertain, but it does not appear there is seizure activity or any ascertainable epileptiform discharges. ACTIVATION PROCEDURE: Hard to comment on it, but it does not appear there was any photic driving or abnormality during the photic stimulation. Hyperventilation is not performed. CLINICAL INTERPRETATION: This is a very limited study because of diffuse artifact. Does not appear seizure, but again it is hard to ascertain because of the artifact. Recommend repeating EEG. MMODL / IJN: [id number] / [place]
[2022-04-04] MEDS: HEPARIN SODIUM,PORCINE/PF 5,000 UNIT/0.5 ML SYRINGE SQ SCH ×4 (00:05→23:41)
--- NOTE | 2022-04-04 01:09 | CONS ---
CONSULTATION IDENTIFYING DATA: The patient is a 76-year-old male, who currently lives alone in a house, has 3 kids. REASON FOR CONSULTATION: Assessing capacity. HISTORY OF PRESENT ILLNESS: The patient came to the hospital yesterday through the ER for an apparent headache, increase in diarrhea lately and was also referred by a mid-level nurse practitioner at Dr. Elliott's office for concerns of a possible stroke given the patient's waxing and waning neurological symptoms and history of strokes in the past. The patient has been seen and is being followed by Neurology who are assessing if possible stroke versus seizure at this time. The patient had a CT scan of his head, which showed no acute changes, hemorrhages, or ischemia were noted, however, did mention chronic ischemia from an old infarct. The patient was seen today, laid in bed, and agreeable to speak to commercial insurance underwriter. The patient appeared to be mildly disheveled in appearance, had longer hair, a long michael. He initially was somewhat irritable with commercial insurance underwriter. However, with time, the patient became more cooperative during the interview process. He spoke about his ongoing neurological issues and feeling uneasy on his speech. He claims that he had put several handles around his house and rebuild areas of his house to make it easier for him to walk around. He states that the nurse practitioner called him to come to the hospital. He claims that he has been taking his medication and has been doing "okay." He is willing to go through with the assessment, imaging, and also test to see his health, however, it seems that he does want to go home and was inpatient at times during the interview. He claimed that he has had no other further medical changes. He states that he does have a chronic history of depression, however, at this time, he is not feeling depressed. He states that he does not have any anxiety at this time. He claims that his sleep has been "on and off", but mainly not good. He claims that he takes several different medications of sleep, and normally gets about 3 to 4 hours. He states that his appetite is fair. He has fair concentration and fair memory recall and is alert and oriented x3. At this time, he is denying any suicidal or homicidal ideation, intent, or plan. He is denying any auditory or visual hallucinations. Not endorsing any delusions at this time. He claims that he does smoke cigarettes, however, no other recreational drug use. PSYCHIATRIC HISTORY: The patient states that he does have a history of depression, denies any psychiatric admissions in the past. He claims that he used to see Dr. Carrasco as his psychiatrist several years ago, however, stopped going. He is currently on Restoril as needed at nighttime, ramelteon, and also melatonin at nighttime. He denies any suicide attempts in the past. He denied any access to guns or weapons. FAMILY HISTORY: Denied. SOCIAL HISTORY: Claims that he was born and raised in [place], [place], now lives in this area. He states he completed high school and also a Bachelor of Science in college. 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 He denies any legal history. He has 4 kids, currently lives alone in a house. MENTAL STATUS EXAM: The patient is lying in bed, wearing glasses, has longer hair, disheveled appearance, long michael, initially argumentative, however, was later more cooperative. The patient is defensive at times during the interview. The patient is not displaying any agitation, very little irritability. No tremors noted. No psychomotor retardation. The patient's speech is clear, fluent, and nonpressured. The patient's mood is "alright" and affect is constricted at this time. The patient denies any auditory or visual hallucinations, and denies any suicidal or homicidal ideation, intent, or plan. The patient has a linear thought process, argumentative at times, defensive, logical. The patient is alert and oriented x3. He can spell correctly "world" backwards. Fair memory recall and fair concentration. Insight and judgment, fair. ASSESSMENT: 1. History of depressive disorder. 2. Nicotine dependence. PLAN: At this time, the patient does not meet criteria for inpatient psychiatric hospitalization. Please avoid opiate and benzodiazepine as this may trigger or cause confusion/delirium. At this time, we will discontinue the Restoril due to potential unsteady gait and possible falls at home, replace with Remeron 15 mg at bedtime for insomnia/mood/appetite, can continue with ramelteon and melatonin as prescribed. The patient does display capacity; however, the patient is defensive at times and can be argumentative. He is able to understand the risks of not being treated or medically assessed in the hospital, the risks and benefits of the medication for the most part. The patient has downside of general medical decision capacity. nutrition services worker to please provide outpatient psychiatric referral if needed. Appreciate Neurology recommendation, continue medical treatment and management. At this time, Psychiatry will sign off, please contact with any questions. MMODL / IJN: [id number] /
[2022-04-04] MEDS: SODIUM CHLORIDE 0.9% 1,000 ML IV SCH ×2 (05:57→05:58)
[2022-04-04] MEDS: PANTOPRAZOLE 40 MG TABLET PO SCH (06:13)
[2022-04-04] MEDS: LOSARTAN 25 MG TAB PO SCH (08:22)
[2022-04-04] MEDS: METOPROLOL SUCCINATE (ER) 25 MG TAB.ER.24H PO SCH (08:22)
[2022-04-04] MEDS: TOPIRAMATE 25 MG TAB PO SCH ×2 (08:22→20:00)
[2022-04-04] MEDS: ASPIRIN 81 MG PO SCH (08:22)
[2022-04-04] MEDS: levETIRAcetam 500 MG TAB PO SCH ×2 (08:22→20:00)
[2022-04-04] MEDS: CLOPIDOGREL 75 MG TAB PO SCH (08:22)
[2022-04-04] MEDS: DIPHENOX-ATROP 2.5-0.025 MG 1 EACH TAB PO PRN ×3 (08:22→15:55)
[2022-04-04] MEDS: TAMSULOSIN 0.4 MG CAP.ER.24H PO SCH (08:23)
--- NOTE | 2022-04-04 12:36 | P.PN ---
Subjective This is a 76-year-old gentleman past medical history of CVA , seizures, CAD, hypertension, hyperlipidemia, nicotine dependence, alcohol abuse and multiple other medical issues brought into the ER by EMS. Referred to the ER by PCPs office related to fluctuating right-sided weakness, headache, possible CVA existing over the last 3-4 days. Denies falls, no syncope. Denies chest pain, palpitations or shortness of breath. Troponin negative. EKG reveals sinus rhythm with occasional PVC. Denies lightheadedness dizziness or focal deficits. Patient discharged from subacute rehab approximately 2 months ago. Afebrile, normal WBC, hemoglobin 13.3, platelets 214, sodium 139. Received potassium supplements in the ER for potassium at 3.1, currently up to 3.5. Magnesium 1.3.Renal function stable. UA negative. Serum alcohol less than 10. Blood pressure stable, maintaining O2 sats in the mid to high 90s on room air. Chest x-ray reported no acute cardiopulmonary process. Brain CT reported similar to 11/03/2021 with no acute intracranial abnormality seen. CT angiogram head and neck reported no significant stenosis and common or internal carotid arteries bilaterally, no significant stenosis or aneurysmal at the [place], inte rval successful treatment of significant stenosis of the right brachiocephalic artery. Patient currently reports symptom free, walking around the bedside in his ER room. Denies headache currently. 04/04/2022: currently patient is back to baseline. Neuro and Psych notes reviewed. MRI is pending, labs are stable. He denies any chest pain pressure sob nausea or vomiting. He is tolerating a regular diet. He is ambulating with a wlaker. Residual neuro deficits only t this time Objective - Vital Signs Vital signs: Vital Signs Temp 97.7 F 04/03/22 20:45 Pulse 83 04/04/22 04:00 Resp 18 04/04/22 04:00 BP 136/83 04/04/22 04:00 Pulse Ox 100 04/04/22 04:00 FiO2 Intake & Output 04/03/22 04/04/22 04/04/22 18:59 06:59 18:59 Intake Total 120 485 0 Balance 120 485 0 Weight 53.524 kg Intake: Oral 120 485 0 Other: Voiding Method Toilet # Voids 1 - Exam General: Cachectic, alert and oriented 3, sitting up in bed, no acute distress, Neck: Supple, no JVD Cardiac: Heart regular in rate and rhythm. No S3. No S4. No clicks, rubs. No murmur. Lungs:Clear to auscultation bilaterally. Abdomen: Soft, nondistended, No organomegaly. No guarding, Bowel sounds present. Extremes: No edema no cyanosis,normal pulses Skin: Warm and dry. Neurologic: Alert and oriented 3, speech fluent, minimal residual decreased strength on the right side, leg greater than arm. Residual decreased sensation of right-side. ambulating with walker, no balance issues noted Lymphatic: No adenopathy. - Labs CBC & Chem 7: 04/03/22 08:11 04/03/22 08:11 Labs: Abnormal Lab Results - Last 24 Hours (Table) 04/04/22 Range/Units 09:57 Magnesium 1.5 L (1.6-2.3) mg/dL Assessment and Plan Plan: Fluctuating right-sided weakness, possible CVA, possible seizure: EEG inconclusive Generalized weakness, history of Multiple frequent falls, lives alone-children unable to stay with him: he states [facility]. He REFUSES ECF. Psych determined he is cabale of making decisions History of seizure, CVA History of tension headaches, concussions CAD COPD Nicotine dependence Ongoing alcohol abuse Protein calorie malnutrition, moderate Plan:Continue on current medication regime ,monitoring and symptomatic treatment. Neurology workup in progress including MRI, . Hospice had previously been consulted by PCPs office, but patienbt appears to well at this time. concern expressed about patient liveing alone again discussed with him He has NO interest in ECF Prognosis guarded given multiple complex medical issues. Discharge planning in progress. continue PT, wait on MRI, labs, possible d/c i nthe next 24 hours
--- NOTE | 2022-04-04 16:28 | P.PN ---
Subjective Progress Note Date: 04/04/22 The patient is seen at bedside and he is accompanied with his daughter and he feels about the same. Patient states that it's he is a somewhat unpleased the that he has not had his MRI yet. Denies of any new neurological deficit. Objective - Vital Signs Vital signs: Vital Signs Temp 98.0 F 04/04/22 08:00 Pulse 70 04/04/22 08:00 Resp 18 04/04/22 08:00 BP 119/72 04/04/22 08:00 Pulse Ox 99 04/04/22 08:00 FiO2 Intake & Output 04/03/22 04/04/22 04/04/22 18:59 06:59 18:59 Intake Total 120 485 118 Balance 120 485 118 Weight 53.524 kg Intake: Oral 120 485 118 Other: Voiding Method Toilet Toilet # Voids 1 - Exam GENERAL: The patient is lying in bed and is not in acute distress. NEUROLOGICAL: Higher mental function: The patient is awake, alert, oriented to self, place and time. Patient is following commands. No aphasia and no neglect. Cranial nerves: The pupils are round, equal and reactive to light and acco mmodation. Visual dom[place]uez are full to confrontation throughout. Extraocular movement is intact no nystagmus is noted. Facial sensation is normal to touch throughout. The facial strength is normal throughout. Hearing is normal bilaterally to hand rub. Tongue is midline and moved [id number] without any difficulty. No dysarthria is noted. Shoulder shrug is normal bilaterally. Motor: The strength is 4--4+over the right side. Otherwise 5 over 5 throughout left. Normal tone and bulk. Cerebellum: Normal finger to nose bilaterally. Sensation: Sensation is decreased to touch over the right side (old). Reflexes (right/left): 1+ throughout. Plantars are mute bilaterally. Some of the workup during his hospital visit consisted of: Is afebrile. Blood cells within normal limits Serum alcohol less than 10 Lipid panel is triglyceride 93, cholesterol is 147, LDL 74 and HDL is [address] of the head is reported as sizable areas of in the left frontoparietal junction related to prior infarct, similar to 11/03/2021. No acute intracranial abnormality seen. Partial opacification the right mastoid air cell. Correlate for any mastoid pain to exclude mastoiditis. I personally reviewed the CT and I agree that there is no acute or subacute ischemia and the patient does have an old encephalomalacia as reported above. No bleeding noted The angiography of the head and neck was reported as no significant stenosis in the common or internal carotid arteries bilaterally. No significant stenosis or aneurysm at the level [place]. Interval successful treatment of significant stenosis of the right. Brachiocephalic artery. CT and EEG on 04/03/2022 is a very limited study because of diffused the artifact. But it does not appear there is any seizure but again is hard to the ascertain because of the artifact. Recommend repeating EEG. 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 I'll get a repeat EEG since initial is limited because of diffuse artifact. Ordered it since having waxing waning symptoms to rule out any seizure or epileptiform discharges that is ongoing especially with a history of stroke He is resumed on his home medication of aspirin 81, Plavix 75 mg and pravastatin 40 mg daily at bedtime. This is sufficient for secondary stroke prophylaxis. Continue Keppra 500 mg every 12 hours Continue neuro checks On cardiac monitoring PT OT and [facility] are consulted We'll defer the rest of the medical management to the primary team Patient is on subcu heparin 5000 units every 8 hours for DVT prophylaxis Recommend the patient to follow-up with a neurologist as an outpatient within 1- 2 weeks. The plan is discussed with patient and his daughter who is at bedside. Patient stated that he'll wait until this Wednesday and if the workup is not complete by then he wants to be discharged home. Time with Patient: Less than 30
[2022-04-04] MEDS: MAGNESIUM SULFATE-D5W PMX 1 GM in DEXTROSE/WATER 1 100ML.BAG IVPB SCH ×2 (18:47→19:59)
[2022-04-04] MEDS: THIAMINE 100 MG TAB PO SCH (18:48)
[2022-04-04] MEDS: MELATONIN 3 MG TABLET PO SCH (20:00)
[2022-04-04] MEDS: MIRTAZAPINE 15 MG TAB PO SCH (20:00)
[2022-04-04] MEDS: PRAVASTATIN SODIUM 40 MG TAB PO SCH (20:00)
[2022-04-05] MEDS: DIPHENOX-ATROP 2.5-0.025 MG 1 EACH TAB PO PRN (00:33)
[2022-04-05] MEDS: PANTOPRAZOLE 40 MG TABLET PO SCH (05:31)
[2022-04-05] MEDS: SODIUM CHLORIDE 0.9% 1,000 ML IV SCH ×3 (05:31→17:03)
[2022-04-05] MEDS: TAMSULOSIN 0.4 MG CAP.ER.24H PO SCH (08:15)
[2022-04-05] MEDS: THIAMINE 100 MG TAB PO SCH (08:15)
[2022-04-05] MEDS: LOSARTAN 25 MG TAB PO SCH (08:15)
[2022-04-05] MEDS: ASPIRIN 81 MG PO SCH (08:15)
[2022-04-05] MEDS: HEPARIN SODIUM,PORCINE/PF 5,000 UNIT/0.5 ML SYRINGE SQ SCH ×3 (08:15→23:31)
[2022-04-05] MEDS: levETIRAcetam 500 MG TAB PO SCH ×2 (08:15→19:50)
[2022-04-05] MEDS: METOPROLOL SUCCINATE (ER) 25 MG TAB.ER.24H PO SCH (08:15)
[2022-04-05] MEDS: TOPIRAMATE 25 MG TAB PO SCH ×2 (08:15→19:49)
[2022-04-05] MEDS: CLOPIDOGREL 75 MG TAB PO SCH (08:15)
[2022-04-05 10:41] LABS: Basophils % (A) 0 %; Eosinophils # (A) 0.1 k/uL (0-0.7); Eosinophils % (A) 2 %; HCT 35.8 % (39.0-53.0); HGB 11.7 gm/dL (13.0-17.5); Lymphocytes # (A) 1.8 k/uL (1.0-4.8); Lymphocytes % (A) 24 %; MCH 32.1 pg (25.0-35.0); MCHC 32.6 g/dL (31.0-37.0); MCV 98.6 fL (80.0-100.0); Mean Platelet Volume 9.3; Monocytes # (A) 0.5 k/uL (0-1.0); Monocytes % (A) 7 %; Neutrophils # (A) 4.6 k/uL (1.3-7.7); Neutrophils % (A) 63 %; Platelet Count 185 k/uL (150-450); RBC 3.63 m/uL (4.30-5.90); RDW 13.5 % (11.5-15.5); WBC 7.4 k/uL (3.8-10.6)
[2022-04-05 10:50] LABS: African American GFR (CKD) >90 (>60 ml/min/1.73 sqM); Anion Gap 2 mmol/L; Blood Urea Nitrogen 10 mg/dL (9-20); Calcium 7.4 mg/dL (8.4-10.2); Carbon Dioxide 24 mmol/L (22-30); Chloride 114 mmol/L (98-107); Glucose 83 mg/dL (74-99); Magnesium 1.9 mg/dL (1.6-2.3); Non-African American GFR(CKD) 86 (>60 ml/min/1.73 sqM); Potassium 3.3 mmol/L (3.5-5.1); Sodium 140 mmol/L (137-145)
--- NOTE | 2022-04-05 11:14 | P.PN ---
Subjective Progress Note Date: 04/05/22 The patient is seen at bedside and feels about the same. Objective - Vital Signs Vital signs: Vital Signs Temp 97.6 F 04/05/22 08:09 Pulse 67 04/05/22 09:25 Resp 18 04/05/22 09:25 BP 111/68 04/05/22 08:09 Pulse Ox 96 04/05/22 08:09 FiO2 Intake & Output 04/04/22 04/05/22 04/05/22 18:59 06:59 18:59 Intake Total 236 485 118 Balance 236 485 118 Intake: Oral 236 485 118 Other: Voiding Method Toilet Toilet Toilet # Voids 2 - Exam GENERAL: The patient is lying in bed and is not in acute distress. NEUROLOGICAL: Higher mental function: The patient is awake, alert, oriented to self, place and time. Patient is following commands. No aphasia and no neglect. Cranial nerves: The pupils are round, equal and reactive to light and accommodation. Visual dominguez are full to confrontation throughout. Extraocular movement is intact no nystagmus is noted. Facial sensation is normal to touch throughout. The facial strength is normal throughout. Hearing is normal bilaterally to hand rub. Tongue is midline and moved [id number] without any difficulty. No dysarthria is noted. Shoulder shrug is normal bilaterally. Motor: The strength is 4--4+over the right side. Otherwise 5 over 5 throughout left. Normal tone and bulk. Cerebellum: Normal finger to nose bilaterally. Sensation: Sensation is decreased to touch over the right side (old). Reflexes (right/left): 1+ throughout. Plantars are mute bilaterally. Some of the workup during his hospital visit consisted of: Is afebrile. Blood cells within normal limits Serum alcohol less than 10 Lipid panel is triglyceride 93, cholesterol is 147, LDL 74 and HDL is [address] of the head is reported as sizable areas of in the left frontoparietal junction related to prior infarct, similar to 11/03/2021. No acute intracranial abnormality seen. Partial opacification the right mastoid air cell. Correlate for any mastoid pain to exclude mastoiditis. I personally reviewed the CT and I agree that there is no acute or subacute ischemia and the patient does have an old encephalomalacia as reported above. No bleeding noted The angiography of the head and neck was reported as no significant stenosis in the common or internal carotid arteries bilaterally. No significant stenosis or aneurysm at the level [place]. Interval successful treatment of significant stenosis of the right. Brachiocephalic artery. CT and EEG on 04/03/2022 is a very limited study because of diffused the artifact. But it does not appear there is any seizure but again is hard to the ascertain because of the artifact. Recommend repeating EEG. 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 I'll get a repeat EEG since initial is limited because of diffuse artifact. Ordered it since having waxing waning symptoms to rule out any seizure or epileptiform discharges that is ongoing especially with a history of stroke He is resumed on his home medication of aspirin 81, Plavix 75 mg and pravastatin 40 mg daily at bedtime. This is sufficient for secondary stroke prophylaxis. Continue Keppra 500 mg every 12 hours Continue neuro checks On cardiac monitoring PT OT and [facility] are consulted We'll defer the rest of the medical management to the primary team Patient is on subcu heparin 5000 units every 8 hours for DVT prophylaxis Recommend the patient to follow-up with a neurologist as an outpatient within 1- 2 weeks. The plan is discussed with patient. Also discussed with his daughter yesterday who agrees with plan. Patient stated that he'll wait until this Wednesday and if the workup is not complete by then he wants to be discharged home. Dr. Leonard will start neurology service tomorrow A.M. Time with Patient: Less than 30
--- NOTE | 2022-04-05 11:16 | P.PN ---
Subjective This is a 76-year-old gentleman past medical history of CVA , seizures, CAD, hypertension, hyperlipidemia, nicotine dependence, alcohol abuse and multiple other medical issues brought into the ER by EMS. Referred to the ER by PCPs office related to fluctuating right-sided weakness, headache, possible CVA existing over the last 3-4 days. Denies falls, no syncope. Denies chest pain, palpitations or shortness of breath. Troponin negative. EKG reveals sinus rhythm with occasional PVC. Denies lightheadedness dizziness or focal deficits. Patient discharged from subacute rehab approximately 2 months ago. Afebrile, normal WBC, hemoglobin 13.3, platelets 214, sodium 139. Received potassium supplements in the ER for potassium at 3.1, currently up to 3.5. Magnesium 1.3.Renal function stable. UA negative. Serum alcohol less than 10. Blood pressure stable, maintaining O2 sats in the mid to high 90s on room air. Chest x-ray reported no acute cardiopulmonary process. Brain CT reported similar to 11/03/2021 with no acute intracranial abnormality seen. CT angiogram head and neck reported no significant stenosis and common or internal carotid arteries bilaterally, no significant stenosis or aneurysmal at the [place], inte rval successful treatment of significant stenosis of the right brachiocephalic artery. Patient currently reports symptom free, walking around the bedside in his ER room. Denies headache currently. 04/04/2022: currently patient is back to baseline. Neuro and Psych notes reviewed. MRI is pending, labs are stable. He denies any chest pain pressure sob nausea or vomiting. He is tolerating a regular diet. He is ambulating with a wlaker. Residual neuro deficits only t this time March 2022: Patient remains at his baseline. He is unhappy having away from the MRI and repeat EEG will be tomorrow. He remains on aspirin and Plavix for antibiotic platelet effect along with heparin for anticoagulation. Her for possible seizure activity, losartan for hypertension mirtazapine for insomnia and mood, tamsulosin for BPH, pravastatin for hyperlipidemia Topamax for migraine headache history. He currently denies any chest pains pressures shortness of breath. He just wants to go home soon. Vital signs remained stable. He remains afebrile. Her mony on room air. Labs today show a white count with no shift. Minimal anemia with hemoglobin 11.7. Slight hypokalemia with potassium 3.3. Otherwise electrolytes were normal with the exception of a low calcium at 7.4. Cholesterol resulted several days ago did show an LDL of 74.4. EEG had April 03 showed artifact. An MRI is pending along with a repeat he EEG. Neurology notes from April 04 reviewed. Objective - Vital Signs Vital signs: Vital Signs Temp 97.6 F 04/05/22 08:09 Pulse 67 04/05/22 09:25 Resp 18 04/05/22 09:25 BP 111/68 04/05/22 08:09 Pulse Ox 96 04/05/22 08:09 FiO2 Intake & Output 04/04/22 04/05/22 04/05/22 18:59 06:59 18:59 Intake Total 236 485 118 Balance 236 485 118 Intake: Oral 236 485 118 Other: Voiding Method Toilet Toilet Toilet # Voids 2 - Exam General: Cachectic, alert and oriented 3, sitting up in bed, no acute d istress, Neck: Supple, no JVD Cardiac: Heart regular in rate and rhythm. No S3. No S4. No clicks, rubs. No murmur. Lungs:Clear to auscultation bilaterally. Abdomen: Soft, nondistended, No organomegaly. No guarding, Bowel sounds present. Extremes: No edema no cyanosis,normal pulses Skin: Warm and dry. Neurologic: Alert and oriented 3, speech fluent, minimal residual decreased strength on the right side, leg greater than arm. Residual decreased sensation of right-side. ambulating with walker, no balance issues noted Lymphatic: No adenopathy. - Labs CBC & Chem 7: 04/05/22 10:08 04/05/22 10:08 Labs: Abnormal Lab Results - Last 24 Hours (Table) 04/05/22 04/05/22 Range/Units 10:08 10:08 RBC 3.63 L (4.30-5.90) m/uL Hgb 11.7 L (13.0-17.5) gm/dL Hct 35.8 L (39.0-53.0) % Potassium 3.3 L (3.5-5.1) mmol/L Chloride 114 H (98-107) mmol/L Calcium 7.4 L (8.4-10.2) mg/dL Assessment and Plan Plan: Fluctuating right-sided weakness, possible CVA, possible seizure: EEG inconclusive Generalized weakness, history of Multiple frequent falls, lives alone-children unable to stay with him: he states his son will come [place] to be with him for a few days. He REFUSES ECF. Psych determined he is cabale of making decisions History of seizure, CVA History of tension headaches, concussions CAD COPD Nicotine dependence Ongoing alcohol abuse Protein calorie malnutrition, moderate Plan:Continue on current medication regime ,monitoring and symptomatic treatment. Neurology workup in progress including MRI, and repeat EEG. . Hospice had previously been consulted by PCPs office, but patienbt appears to well at this time. concern expressed about patient liveing alone again discussed with him He has NO interest in ECF Prognosis guarded given multiple complex medical issues. Discharge planning in progress. continue PT, wait on MRI, labs,
[2022-04-05] MEDS: POTASSIUM CHLORIDE ER 20 MEQ TAB.ER PO SCH ×2 (11:33→12:49)
[2022-04-05] MEDS: CALCIUM CARB-VIT D 500 MG-5 MCG TAB PO SCH ×2 (11:33→17:03)
[2022-04-05] MEDS: HYDROcodone/APAP 5-325MG 1 EACH TAB PO PRN ×2 (12:00→19:50)
[2022-04-05] MEDS: MELATONIN 3 MG TABLET PO SCH (19:50)
[2022-04-05] MEDS: PRAVASTATIN SODIUM 40 MG TAB PO SCH (19:50)
[2022-04-05] MEDS: MIRTAZAPINE 15 MG TAB PO SCH (19:50)
[2022-04-06] MEDS: HYDROcodone/APAP 5-325MG 1 EACH TAB PO PRN ×2 (05:44→19:59)
[2022-04-06] MEDS: PANTOPRAZOLE 40 MG TABLET PO SCH (06:27)
[2022-04-06] MEDS: CALCIUM CARB-VIT D 500 MG-5 MCG TAB PO SCH ×2 (06:27→17:35)
[2022-04-06] MEDS: SODIUM CHLORIDE 0.9% 1,000 ML IV SCH ×2 (06:29→17:09)
[2022-04-06 06:59] LABS: Potassium 3.8 mmol/L (3.5-5.1)
[2022-04-06] MEDS: TOPIRAMATE 25 MG TAB PO SCH ×2 (07:49→19:58)
[2022-04-06] MEDS: THIAMINE 100 MG TAB PO SCH (07:49)
[2022-04-06] MEDS: CLOPIDOGREL 75 MG TAB PO SCH (07:49)
[2022-04-06] MEDS: HEPARIN SODIUM,PORCINE/PF 5,000 UNIT/0.5 ML SYRINGE SQ SCH ×2 (07:49→17:10)
[2022-04-06] MEDS: ASPIRIN 81 MG PO SCH (07:49)
[2022-04-06] MEDS: TAMSULOSIN 0.4 MG CAP.ER.24H PO SCH (07:49)
[2022-04-06] MEDS: LOSARTAN 25 MG TAB PO SCH (07:49)
[2022-04-06] MEDS: METOPROLOL SUCCINATE (ER) 25 MG TAB.ER.24H PO SCH (07:49)
[2022-04-06] MEDS: levETIRAcetam 500 MG TAB PO SCH ×2 (07:50→19:58)
--- NOTE | 2022-04-06 09:17 | MR ---
"EXAMINATION TYPE: MR brain wo con DATE OF EXAM: 04/06/2022 COMPARISON: MRI brain September 12, 2021. CT brain April 02, 2022. HISTORY: Right sided weakness. Admitted for acute onset neurodeficit 4 days earlier. TECHNIQUE: Multiplanar, multisequence imaging of the brain and brainstem is performed without IV cont rast. FINDINGS: Diffusion weighted images demonstrate increased signal on diffusion weighted images with diminished s ignal on ADC mapping involving the left occipital lobe axial image 200 series 303 for reference. This is posterior to an area of old encephalomalacia. Mild to moderate ventricular and sulcal prominence redemonstrated. Scattered small foci of T2 hyperin tensity are again seen throughout the white matter bilaterally. Some areas of low signal particularly near the midline anteriorly on T2 Star weighted images slightly more thicker than focal vessel raise concern for possible areas of hemorrhagic transformation. Reference image 429 series 602. Midline structures redemonstrate normal morphology. The craniocervical junction appears within filiberto l limits. Normal vascular flow voids are present. Increased fluid signal right mastoid air cells are redemonstrated. Suspect retained secretions. Correlate clinically. Nasal septum deviated to right of midline. Mild to moderate mucosal thickening involving ethmoid sinuses bilaterally. Globes are intact bilaterally IMPRESSION: 1. Evolving acute infarct left occipital lobe posterior to area of old infarct. Hemorrhagic transform ation may be present. 2. There is mild to moderate diffuse cerebral atrophy and chronic small vessel ischemic change redemo nstrated. No significant change from prior MRI. A [place] critical message alert has been initiated for Ivan Elliott MD via the [facility] | Critical Results System on 04/06/2022 9:14 AM. This message alert has been sent to Ivan Elliott MD via the preferences provided by the clinician for the receipt of Radiology Critical Findings. Al ssage ID [id number]."
--- NOTE | 2022-04-06 13:41 | P.PN ---
Progress Note - Text Patient is insistent on going home soon with planned home hospice. His MRI shows possible hemorrhagic conversion. Waiting on further recommendations from neurology but expect discharge later today.
--- NOTE | 2022-04-06 15:06 | P.PN ---
Subjective This is a 76-year-old gentleman past medical history of CVA , seizures, CAD, hypertension, hyperlipidemia, nicotine dependence, alcohol abuse and multiple other medical issues brought into the ER by EMS. Referred to the ER by PCPs office related to fluctuating right-sided weakness, headache, possible CVA existing over the last 3-4 days. Denies falls, no syncope. Denies chest pain, palpitations or shortness of breath. Troponin negative. EKG reveals sinus rhythm with occasional PVC. Denies lightheadedness dizziness or focal deficits. Patient discharged from subacute rehab approximately 2 months ago. Afebrile, normal WBC, hemoglobin 13.3, platelets 214, sodium 139. Received potassium supplements in the ER for potassium at 3.1, currently up to 3.5. Magnesium 1.3.Renal function stable. UA negative. Serum alcohol less than 10. Blood pressure stable, maintaining O2 sats in the mid to high 90s on room air. Chest x-ray reported no acute cardiopulmonary process. Brain CT reported similar to 11/03/2021 with no acute intracranial abnormality seen. CT angiogram head and neck reported no significant stenosis and common or internal carotid arteries bilaterally, no significant stenosis or aneurysmal at the [place], inte rval successful treatment of significant stenosis of the right brachiocephalic artery. Patient currently reports symptom free, walking around the bedside in his ER room. Denies headache currently. 04/04/2022: currently patient is back to baseline. Neuro and Psych notes reviewed. MRI is pending, labs are stable. He denies any chest pain pressure sob nausea or vomiting. He is tolerating a regular diet. He is ambulating with a wlaker. Residual neuro deficits only t this time April 05 2022: Patient remains at his baseline. He is unhappy having away from the MRI and repeat EEG will be tomorrow. He remains on aspirin and Plavix for antibiotic platelet effect along with heparin for anticoagulation. Her for possible seizure activity, losartan for hypertension mirtazapine for insomnia and mood, tamsulosin for BPH, pravastatin for hyperlipidemia Topamax for migraine headache history. He currently denies any chest pains pressures shortness of breath. He just wants to go home soon. Vital signs remained stable. He remains afebrile. Her mony on room air. Labs today show a white count with no shift. Minimal anemia with hemoglobin 11.7. Slight hypokalemia with potassium 3.3. Otherwise electrolytes were normal with the exception of a low calcium at 7.4. Cholesterol resulted several days ago did show an LDL of 74.4. EEG had April 03 showed artifact. An MRI is pending along with a repeat he EEG. Neurology notes from April 04 reviewed. April 06, 2022: patient remains in this baseline. He is wanting to go home. His MRI of the brain showed questionable hemorrhagicum transformation. Neurology is following. He is requesting hospice be scheduled. It cannot be set up until t omorrow. Objective - Vital Signs Vital signs: Vital Signs Temp 97.8 F 04/06/22 07:43 Pulse 66 04/06/22 11:42 Resp 18 04/06/22 11:42 BP 117/81 04/06/22 11:42 Pulse Ox 98 04/06/22 11:42 FiO2 Intake & Output 04/05/22 04/06/22 04/06/22 18:59 06:59 18:59 Intake Total 354 Balance 354 Intake: Oral 354 Other: Voiding Method Toilet Toilet Toilet # Voids 1 1 # Bowel Movements 1 - Exam General: Cachectic, alert and oriented 3, sitting up in bed, no acute distress, Neck: Supple, no JVD Cardiac: Heart regular in rate and rhythm. No S3. No S4. No clicks, rubs. No murmur. Lungs:Clear to auscultation bilaterally. Abdomen: Soft, nondistended, No organomegaly. No guarding, Bowel sounds present. Extremes: No edema no cyanosis,normal pulses Skin: Warm and dry. Neurologic: Alert and oriented 3, speech fluent, minimal residual decreased strength on the right side, leg greater than arm. Residual decreased sensation of right-side. ambulating with walker, no balance issues noted Lymphatic: No adenopathy. - Labs CBC & Chem 7: 04/05/22 10:08 04/06/22 06:06 Labs: Abnormal Lab Results - Last 24 Hours (Table) 04/06/22 Range/Units 06:06 Chloride 117 H (98-107) mmol/L Calcium 8.0 L (8.4-10.2) mg/dL Assessment and Plan Plan: New subacute, CVA, Left occipital, lobe posterior Generalized weakness, history of Multiple frequent falls, lives alone-children unable to stay with him: he states his son will come again to be with him for a few days. He REFUSES ECF. Psych determined he is capable of making decisions History of seizure, CVA History of tension headaches, concussions CAD COPD Nicotine dependence Ongoing alcohol abuse Protein calorie malnutrition, moderate Plan:Home Tomorrow with hospice,
--- NOTE | 2022-04-06 16:48 | P.PN ---
Subjective Progress Note Date: 04/06/22 Patient was seen for a follow-up. Patient initially seen by Dr. Slade Martínez. Please refer to his note for details. Patient is a 76-year-old right-handed male with history of stroke (left hemisphere > right hemisphere), who presents with waxing and waning symptoms. Rule out acute ischemic stroke versus seizure. Patient is on aspirin 81 mg and Plavix 75 mg and Keppra 500 mg twice a day since prior to arrival to the hospital. Also on Pravachol 40 mg and Protonix. Patient had an MRI of the brain, which confirmed the stroke. Please refer to report in the plan. Patient does have history of lupus recorder, for which she was seen by Dr. Farnsworth for couple weeks ago and no concerns were raised. Patient says that he does have a loop recorder, and it transmits information. The box has not alarmed if there had been any arrhythmia. Patient still smokes very minimally, states "couple puffs" a day. He drinks half a shot of whiskey daily. Denies any drug use. He states he is fully compliant with his medications, was able to tell me all name of his medications. He never misses a dose. Some of the workup during his hospital visit consisted of: Serum alcohol less than 10 Lipid panel is triglyceride 93, cholesterol is 147, LDL 74 [address] HDL is [address] of the head is reported as sizable areas of in the left frontoparietal junction related to prior infarct, similar to 11/03/2021. No acute intracranial abnormality seen. Partial opacification the right mastoid air cell. Correlate for any mastoid pain to exclude mastoiditis. I personally reviewed the CT and I agree that there is no acute or subacute ischemia and the patient does have an old encephalomalacia as reported above. No bleeding noted CT angiography of the head and neck was reported as no significant stenosis in the common or internal carotid arteries bilaterally. No significant stenosis or aneurysm at the [place]. Interval successful treatment of significant stenosis of the right. Brachiocephalic artery. CT and EEG on 04/03/2022 is a very limited study because of diffused the artifact. But it does not appear there is any seizure but again is hard to the ascertain because of the artifact. Recommend repeating EEG. Objective - Vital Signs Vital signs: Vital Signs Temp 97.8 F 04/06/22 07:43 Pulse 66 04/06/22 11:42 Resp 18 04/06/22 11:42 BP 117/81 04/06/22 11:42 Pulse Ox 98 04/06/22 11:42 FiO2 Intake & Output 04/05/22 04/06/22 04/06/22 18:59 06:59 18:59 Intake Total 354 Balance 354 Intake: Oral 354 Other: Voiding Method Toilet Toilet Toilet # Voids 1 2 - Exam Patient's mental status, speech and language functions are normal. Cranial nerves revealed normal pupils, normal visual dominguez, face is symmetric. On muscle strength testing patient has right pronator drift. (Right/left) wrapper layer and examiner soft work 4/5, biceps 4/5, triceps 4/5, hip flexion 3+/4+5- Patient has definite ataxia for [id number] testing with the right upper extremity, but none on the left. Sensory decreased sensation for touch in the right upper extremity as compared to the left upper. Sensations are equal on the face. - Labs CBC & Chem 7: 04/05/22 10:08 04/06/22 06:06 Labs: Abnormal Lab Results - Last 24 Hours (Table) 04/06/22 Range/Units 06:06 Chloride 117 H (98-107) mmol/L Calcium 8.0 L (8.4-10.2) mg/dL Assessment and Plan Assessment: Acute to subactue ischemic stroke, likely embolic with possible mild hemorrhagic conversion. History of stroke (left >right hemisphere) with residual right hemiparesis, 08/11/2021 History of seizure Tension-type headache History of concussion Coronary artery disease Tobacco History of alcohol use Presence of loop recorder. Plan: * MRI of the brain revealed evolving acute infarct left occipital lobe posterior to area of old infarct. Hemorrhagic transformation may be present. There is mild to moderate diffuse cerebral atrophy and chronic small vessel ischemic change redemonstrated. No significant change from prior MRI. I personally reviewed MRI, I agree with the findings. There may be slight gyriform petechial hemorrhagic conversion. No mass effect. * Repeat CT head in the morning. * JOURDAN performed 08/30/2021 showed no significant embolic source. The interatrial septum was intact and lipomatous interatrial septum. No evidence of PFO. Left atrial appendage free of clot. EF 60%. * Repeat EEG performed today was mildly abnormal because of background slowing. No epileptiform activity was seen. Continue Keppra 500 mg every 12 hours. * Continue home medications of aspirin 81, Plavix 75 mg and pravastatin 40 mg daily at bedtime. * Recommend complete tobacco cessation. No alcohol use. * On cardiac monitoring * PT OT and LENS GRINDER AND POLISHER are consulted * We'll defer the rest of the medical management to the primary team * Patient is on subcu heparin 5000 units every 8 hours for DVT prophylaxis * Recommend the patient to follow-up with his neurologist Dr. Bajwa and his mark up designer Dr. Bender as an outpatient within 1-2 weeks. Patient would need loop recorder interrogation to rule out paroxysmal atrial fibrillation. Patient not a candidate for anticoagulation at this time because of very slight hemorrhagic conversion of acute CVA. Patient does not want to have cardiology evaluation inpatient. He just wants to see Dr. Bender as an outpatient in 2 weeks. He already has an appointment
[2022-04-06] MEDS: DIPHENOX-ATROP 2.5-0.025 MG 1 EACH TAB PO PRN (18:08)
[2022-04-06] MEDS: MELATONIN 3 MG TABLET PO SCH (19:58)
[2022-04-06] MEDS: PRAVASTATIN SODIUM 40 MG TAB PO SCH (19:58)
[2022-04-06] MEDS: MIRTAZAPINE 15 MG TAB PO SCH (19:58)
--- NOTE | 2022-04-06 23:32 | EEG ---
ELECTROENCEPHALOGRAM REPORT PREAMBLE: This is a 76-year-old male, who was having waxing and waning right-sided deficits. The patient also has headaches. CURRENT MEDICATIONS: Include, 1. Aspirin. 2. Plavix. 3. Topamax. 4. Keppra. 5. Cozaar. Toprol. 1. Potassium. EEG FINDINGS: This is a 21-channel digital EEG recorded with video component, utilizing 10/20 international system with referential and bipolar montages. Background consists of well developed, well regulated moderate voltage activity in mixed frequencies of 6 to 7 hertz theta with some alpha activity in bihemispheric region. Background is posterior dominant and is reactive to eye opening and closing. Photic driving response was not clearly seen. Different stages of sleep were not seen. No focal or generalized epileptiform activity was seen. IMPRESSION: This is a mildly abnormal EEG due to background slowing of mild degree. This is suggestive of generalized cerebral dysfunction as can be seen with encephalopathy or medication effect. No epileptiform activity was seen. MMODL / IJN: [id number] /
[2022-04-07] MEDS: HEPARIN SODIUM,PORCINE/PF 5,000 UNIT/0.5 ML SYRINGE SQ SCH ×2 (00:37→08:32)
[2022-04-07] MEDS: SODIUM CHLORIDE 0.9% 1,000 ML IV SCH ×2 (00:37→08:44)
[2022-04-07] MEDS: HYDROcodone/APAP 5-325MG 1 EACH TAB PO PRN ×3 (01:48→14:48)
[2022-04-07] MEDS: PANTOPRAZOLE 40 MG TABLET PO SCH (06:23)
[2022-04-07] MEDS: CALCIUM CARB-VIT D 500 MG-5 MCG TAB PO SCH (06:23)
[2022-04-07] MEDS: METOPROLOL SUCCINATE (ER) 25 MG TAB.ER.24H PO SCH (08:44)
[2022-04-07] MEDS: THIAMINE 100 MG TAB PO SCH (08:44)
[2022-04-07] MEDS: levETIRAcetam 500 MG TAB PO SCH (08:44)
[2022-04-07] MEDS: LOSARTAN 25 MG TAB PO SCH (08:44)
[2022-04-07] MEDS: TAMSULOSIN 0.4 MG CAP.ER.24H PO SCH (08:44)
[2022-04-07] MEDS: TOPIRAMATE 25 MG TAB PO SCH (08:44)
[2022-04-07 09:40] VITALS: PULSE 63; TEMP 98
--- NOTE | 2022-04-07 10:01 | CT ---
EXAMINATION TYPE: CT brain wo con DATE OF EXAM: 04/07/2022 COMPARISON: MRI 04/16/2022, CT scan 04/02/2022 HISTORY: abnormal MRI CT DLP: 1139.4 mGycm Automated exposure control for dose reduction was used. FINDINGS: Moderate generalized degenerative changes. Low attenuation white matter are nonspecific. No diagnosti c evidence of hemorrhage, mass effect or midline shift. Artifact does limit the exam. There is an are a of abnormal attenuation involving the left parietal lobe compatible with area of previously noted i nfarction. Craniocervical junction maintained. Sella turcica is normal. Orbits are symmetric. Intracranial ather osclerotic changes seen. Changes of chronic right mastoiditis. Calvarium intact. Changes of chronic s inusitis. IMPRESSION: 1. Area of abnormal density within the left superior parietal lobe extending posteriorly compatible w ith the previous MRI report compatible with recent and previous ischemic stroke. No midline shift, ma ss effect or acute hemorrhage. 2. Chronic sinusitis and right mastoiditis.
[2022-04-07] MEDS: CLOPIDOGREL 75 MG TAB PO SCH (10:37)
[2022-04-07] MEDS: ASPIRIN 81 MG PO SCH (10:37)
[2022-04-07 11:59] VITALS: BMI 21.5
[2022-04-07 12:38] VITALS: BP 99/63; RESP 16
[2022-04-07] MEDS: DIPHENOX-ATROP 2.5-0.025 MG 1 EACH TAB PO PRN (15:09)
--- NOTE | 2022-04-08 17:34 | P.DS ---
Providers Date of admission: 04/02/22 18:26 Expected date of discharge: 04/07/22 Attending physician: Ivan Elliott Consults: 04/02/22 18:24 Consult Physician Routine Consulting Provider: Slade Martínez Consult Reason/Comments: neuro deficits, concern for cva Do you want consulting provider notified?: Yes 04/03/22 13:33 Consult Physician Routine Consulting Provider: Stevan Gonzalez Consult Reason/Comments: decision making capacity Do you want consulting provider notified?: Yes Primary care physician: [facility] Course: New subacute, CVA, Left occipital, lobe posterior Generalized weakness, history of Multiple frequent falls, lives alone-children unable to stay with him: he states his son will come again to be with him for a few days. He REFUSES ECF. Psych determined he is capable of making decisions History of seizure, CVA History of tension headaches, concussions CAD COPD Nicotine dependence Ongoing alcohol abuse Protein calorie malnutrition, moderate Hospital course:This is a 76-year-old gentleman past medical history of CVA , seizures, CAD, hypertension, hyperlipidemia, nicotine dependence, alcohol abuse and multiple other medical issues brought into the ER by EMS. Referred to the ER by PCPs office related to fluctuating right-sided weakness, headache, possible CVA existing over the last 3-4 days. Denies falls, no syncope. Denies chest pain, palpitations or shortness of breath. Troponin negative. EKG reveals sinus rhythm with occasional PVC. Denies lightheadedness dizziness or focal deficits. Patient discharged from subacute rehab approximately 2 months ago. Afebrile, normal WBC, hemoglobin 13.3, platelets 214, sodium 139. Received potassium supplements in the ER for potassium at 3.1, currently up to 3.5. Magnesium 1.3.Renal function stable. UA negative. Serum alcohol less than 10. Blood pressure stable, maintaining O2 sats in the mid to high 90s on room air. Chest x-ray reported no acute cardiopulmonary process. Brain CT reported similar to 11/03/2021 with no acute intracranial abnormality seen. CT angiogram head and neck reported no significant stenosis and common or internal carotid arteries bilaterally, no significant stenosis or aneurysmal at the [place], interval successful treatment of significant stenosis of the right brachiocephalic artery. Patient currently reports symptom free, walking around the bedside in his ER room. Denies headache currently. 04/04/2022: currently patient is back to baseline. Neuro and Psych notes reviewed. MRI is pending, labs are stable. He denies any chest pain pressure sob nausea or vomiting. He is tolerating a regular diet. He is ambulating with a wlaker. Residual neuro deficits only t this time April 05 2022: Patient remains at his baseline. He is unhappy having away from the MRI and repeat EEG will be tomorrow. He remains on aspirin and Plavix for antibiotic platelet effect along with heparin for anticoagulation. Her for possible seizure activity, losartan for hypertension mirtazapine for insomnia and mood, tamsulosin for BPH, pravastatin for hyperlipidemia Topamax for migraine headache history. He currently denies any chest pains pressures shortness of breath. He just wants to go home soon. Vital signs remained stable. He remains afebrile. Her mony on room air. Labs today show a white count with no shift. Minimal anemia with hemoglobin 11.7. Slight hypokalemia with potassium 3.3. Otherwise electrolytes were normal with the exception of a low calcium at 7.4. Cholesterol resulted several days ago did show an LDL of 74.4. EEG had April 03 showed artifact. An MRI is pending along with a repeat he EEG. Neurology notes from April 04 reviewed. April 06, 2022: patient remains in this baseline. He is wanting to go home. His MRI of the brain showed questionable hemorrhagicum transformation. Neurology is following. He is requesting hospice be scheduled. It cannot be set up until tomorrow. 04/07/2022 Hospice will not open patient up at this time; refer to their notes. Patient insisting on being discharged home. Evaluated by Dr. Elliott PCP and patient will be discharged home today with home care in a stable condition with guarded prognosis. Patient to follow-up with PCP tomorrow. The impression and plan of care has been dictated as directed. : I performed a history and examination of this patient, discussed the same with the dictator. I agree with the dictator's note ,documented as a scribe. Any additional findings or plans will be noted. Patient Condition at Discharge: Stable Plan - Discharge Summary Discharge Rx Participant: Yes New Discharge Prescriptions: New HYDROcodone/APAP 5-325MG [[place] 5-325] 1 each PO Q6HR PRN #12 tab PRN Reason: Pain Continue levETIRAcetam [Keppra] 500 mg PO Q12H #60 tab Clopidogrel [Plavix] 75 mg PO DAILY #30 tab Pantoprazole Sodium [Protonix] 20 mg PO DAILY Melatonin 3 mg PO HS Diphenoxylate HCl/Atropine [Lomotil 2.5-0.025 mg Tablet] 1 tab PO QID PRN PRN Reason: Diarrhea Temazepam [Restoril] 7.5 mg PO HS PRN PRN Reason: Insomnia Aspirin 81 mg PO DAILY 6 Days #30 tab Metoprolol Succinate (ER) [Toprol XL] 25 mg PO DAILY Losartan Potassium [Cozaar] 25 mg PO DAILY Pravastatin Sodium [Pravachol] 40 mg PO HS Thiamine [Vitamin B-1] 100 mg PO DAILY tab Tamsulosin HCl [Flomax] 0.4 mg PO DAILY Ramelteon [Rozerem] 8 mg PO HS Discharge Medication List Aspirin 81 mg PO DAILY 6 Days #30 tab 09/14/21 [Rx] Clopidogrel [Plavix] 75 mg PO DAILY #30 tab 09/14/21 [Rx] levETIRAcetam [Keppra] 500 mg PO Q12H #60 tab 09/14/21 [Rx] Losartan Potassium [Cozaar] 25 mg PO DAILY 10/01/21 [History] Metoprolol Succinate (ER) [Toprol XL] 25 mg PO DAILY 10/01/21 [History] Pravastatin Sodium [Pravachol] 40 mg PO HS 10/01/21 [History] Melatonin 3 mg PO HS 11/03/21 [History] Pantoprazole Sodium [Protonix] 20 mg PO DAILY 11/03/21 [History] Thiamine [Vitamin B-1] 100 mg PO DAILY tab 11/06/21 [Rx] Diphenoxylate HCl/Atropine [Lomotil 2.5-0.025 mg Tablet] 1 tab PO QID PRN 04/02/22 [History] Ramelteon [Rozerem] 8 mg PO HS 04/02/22 [History] Tamsulosin HCl [Flomax] 0.4 mg PO DAILY 04/02/22 [History] Temazepam [Restoril] 7.5 mg PO HS PRN 04/02/22 [History] HYDROcodone/APAP 5-325MG [[place] 5-325] 1 each PO Q6HR PRN #12 tab 04/07/22 [Rx] Follow up Appointment(s)/Referral(s): Aguilar Thurston Jr, [Primary Care Provider] - 1-2 days (Please schedule a follow up appointment when it works for you and your family PEG!) [facility], [NON-STAFF] - Patient Instructions/Handouts: Ischemic Stroke (GEN) Discharge Disposition: HOME WITH HOME HEALTH SERVICES
== END 2022-04-07 15:29 | disposition home health service (06) | DRG 64 ==
LOC: EC 13:48 → 3SCARD 18:26
PROVIDERS: ADMIT Family Medicine; ATTEND Family Medicine
DX: I63.40 Cerebral infarction due to embolism of unspecified cerebral artery (principal); I61.8 Other nontraumatic intracerebral hemorrhage; E44.0 Moderate protein-calorie malnutrition; I69.351 Hemiplegia and hemiparesis following cerebral infarction affecting right dominant side; F03.93 Unspecified dementia, unspecified severity, with mood disturbance; E86.0 Dehydration; E87.6 Hypokalemia; R53.81 Other malaise; Z68.21 Body mass index [BMI] 21.0-21.9, adult; E78.5 Hyperlipidemia, unspecified; G40.909 Epilepsy, unspecified, not intractable, without status epilepticus; G44.209 Tension-type headache, unspecified, not intractable; I70.208 Unspecified atherosclerosis of native arteries of extremities, other extremity; J44.9 Chronic obstructive pulmonary disease, unspecified; I25.10 Atherosclerotic heart disease of native coronary artery without angina pectoris; I25.5 Ischemic cardiomyopathy; F32.A Depression, unspecified; F17.200 Nicotine dependence, unspecified, uncomplicated; I10 Essential (primary) hypertension; I49.3 Ventricular premature depolarization; M06.9 Rheumatoid arthritis, unspecified; R29.704 NIHSS score 4; H91.90 Unspecified hearing loss, unspecified ear; M54.50 Low back pain, unspecified; G89.29 Other chronic pain; Z66 Do not resuscitate; Z95.5 Presence of coronary angioplasty implant and graft; I25.2 Old myocardial infarction; Z79.82 Long term (current) use of aspirin; Z79.02 Long term (current) use of antithrombotics/antiplatelets; Z79.899 Other long term (current) drug therapy; Z85.828 Personal history of other malignant neoplasm of skin; I69.398 Other sequelae of cerebral infarction
CPT/HCPCS: 36415; 70450; 70496; 70498; 70551; 71046; 80048; 80053; 80061; 80320; 81003; 83735; 84132; 84484; 85025; 85610; 85730; 93005; 95816; 96361; 96365; 96366; 96367; 96372; 96375; 99285

== ENCOUNTER 2022-08-24 16:06 | Inpatient (IN) | payer MEDICARE, BC ==
[2022-08-24] MEDS ORDERED: SODIUM CHLORIDE 0.9% 1,000 ML IV STA (17:09)
[2022-08-24] MEDS ORDERED: ONDANSETRON 4 MG/2 ML VIAL IVP STA (17:12)
[2022-08-24] MEDS ORDERED: fentaNYL (PF) 50 MCG/ML 2 ML AMP IVP STA (17:13)
--- NOTE | 2022-08-24 17:53 | ED ---
Weakness HPI - General Chief complaint: Weakness Stated complaint: WEAKNESS Time Seen by Provider: 08/24/22 16:20 Source: patient, family Mode of arrival: wheelchair Limitations: no limitations - History of Present Illness Initial comments: 76-year-old male with past medical history of coronary artery disease, rheumatoid arthritis, multiple CVAs with right-sided weakness who presents to the emergency department for weakness. His family help to provide a history. They took the patient out to eat lunch. He stated that he was so weak at lunch that he could not hold his head up. He attempted to walk outside to the car when he slumped over and his son had a catch in. They then assisted into the car and drove him to the hospital. They report that he has poor oral intake and failure to thrive. Patient states it's difficult to eat since he has weakness on his right side due to previous strokes. He does admit to chronic headache. Patient also began having some chest pressure over the past 2-3 days. He does have history of stents. He denies any vomiting. No black or bloody stools. No changes in his urination. Denies any falls. He did take his blood pressure medications this morning. No other alleviating, precipitating or modifying factors - Related Data Home Medications Medication Instructions Recorded Confirmed Losartan Potassium [Cozaar] 25 mg PO DAILY 10/01/21 08/24/22 Metoprolol Succinate (ER) [Toprol 12.5 mg PO DAILY 10/01/21 08/24/22 XL] Pravastatin Sodium [Pravachol] 40 mg PO HS 10/01/21 08/24/22 Pantoprazole Sodium [Protonix] 20 mg PO DAILY 11/03/21 08/24/22 Diphenoxylate HCl/Atropine 1 tab PO QID PRN 04/02/22 08/24/22 [Lomotil 2.5-0.025 mg Tablet] Ramelteon [Rozerem] 8 mg PO HS PRN 04/02/22 08/24/22 Previous Rx's Medication Instructions Recorded Aspirin 81 mg PO DAILY 6 Days #30 tab 09/14/21 Clopidogrel [Plavix] 75 mg PO DAILY #30 tab 09/14/21 levETIRAcetam [Keppra] 500 mg PO Q12H #60 tab 09/14/21 HYDROcodone/APAP 10-325MG [[place] 1 tab PO Q4HR PRN 3 Days #18 tab 08/27/22 10-325] Allergies Allergy/AdvReac Type Severity Reaction Status Date / Time venom-honey bee Allergy Anaphylaxis Verified 08/24/22 17:59 [bee venom (honey bee)] Review of Systems ROS Statement: Those systems with pertinent positive or pertinent negative responses have been documented in the HPI. ROS Other: All systems not noted in ROS Statement are negative. Past Medical History Past Medical History: Coronary Artery Disease (CAD), Cancer, Chest Pain / Angina, COPD, CVA/TIA, Dementia, Hearing Disorder / Deafness, Hypertension, Myocardial Infarction (MN), Osteoarthritis (OA), Rheumatoid Arthritis (RA), Seizure Disorder Additional Past Medical History / Comment(s): Multiple CVAs with R sided weakness/mobility problems/FALLS, seizure after CVA, ischemic cardiomyopathy, increasing confusion per family, past ETOH abuse but none past couple months, concussions, chronic low back pain, skin cancer removed from nose, [place] bilaterally, diverticular disease/benign colon polyp Last Myocardial Infarction Date:: 2011 History of Any Multi-Drug Resistant Organisms: None Reported Past Surgical History: Bowel Resection, Cholecystectomy, Heart Catheterization With Stent, Orthopedic Surgery, Tonsillectomy Additional Past Surgical History / Comment(s): PCI/stents, 10/06/21 R brachiocephalic artery stenosis/angiogram and balloon angioplasty, Loop recorder, retinal detachments with 6 L eye surgeries and R eye surgery, sking cancer removed from nose, clavicular fracture with surgical repair, colonoscopy/polyp removed, orchiectomy. Past Anesthesia/Blood Transfusion Reactions: No Reported Reaction Date of Last Stent Placement:: 2019 Past Psychological History: Depression Smoking Status: Former smoker Past Alcohol Use History: Abuse Past Drug Use History: None Reported - Past Family History Daughter(s) Family Medical History: Cancer Additional Family Medical History / Comment(s): Breast cancer. Mother Additional Family Medical History / Comment(s): ETOH abuse Father Family Medical History: Myocardial Infarction (MN) General Exam Limitations: language barrier (Due to previous CVA) General appearance: alert, in no apparent distress Head exam: Present: atraumatic, normocephalic, normal inspection Eye exam: Present: normal appearance, PERRL, EOMI. Absent: scleral icterus, conjunctival injection, periorbital swelling ENT exam: Present: mucous membranes dry Respiratory exam: Present: normal lung sounds bilaterally. Absent: respiratory distress, wheezes, rales, rhonchi, stridor Cardiovascular Exam: Present: regular rate, normal rhythm, normal heart sounds. Absent: systolic murmur, diastolic murmur, rubs, gallop, clicks GI/Abdominal exam: Present: soft, normal bowel sounds. Absent: distended, tenderness, guarding, rebound, rigid Extremities exam: Present: other (Right upper contraction, right lower extremity weakness due to previous CVA) Neurological exam: Present: alert, oriented X3, CN II-XII intact Psychiatric exam: Present: depressed Course Vital Signs 08/24/22 08/24/22 08/24/22 16:18 19:54 23:00 Temperature 98.1 F Pulse Rate 87 64 83 Respiratory 20 16 17 Rate Blood Pressure 99/56 95/69 120/81 O2 Sat by Pulse 98 100 Oximetry 08/25/22 08/25/22 08/25/22 02:00 06:53 07:40 Temperature 97.9 F Pulse Rate 78 70 80 Respiratory 18 17 18 Rate Blood Pressure 105/78 128/77 109/74 O2 Sat by Pulse 98 98 Oximetry 08/25/22 08/25/22 09:32 12:18 Temperature Pulse Rate 82 72 Respiratory 16 18 Rate Blood Pressure 102/73 108/76 O2 Sat by Pulse 98 98 Oximetry Medical Decision Making - Medical Decision Making Was pt. sent in by a medical professional or institution (ONEIL Carter, OUT OF SCHOOL HOURS CARE WORKER, urgent care, hospital, or snf...) When possible be specific @ -No Did you speak to anyone other than the patient for history (EMS, parent, family, police, friend...)? What history was obtained from this source @ -I spoke with the patient's son in regards to his symptoms Did you review nursing and triage notes (agree or disagree)? Why? @ -I reviewed and agree with nursing and triage notes Were old charts reviewed (outside hosp., previous admission, EMS record, old EKG, old radiological studies, urgent care reports/EKG's, snf records)? Report findings @ -No old charts were reviewed Differential Diagnosis (chest pain, altered mental status, abdominal pain women, abdominal pain men, vaginal bleeding, weakness, fever, dyspnea, syncope, headache, dizziness, GI bleed, back pain, seizure, CVA, palpatations, mental health, musculoskeletal)? @ -Differential Weakness: Hypoglycemia, shock, sepsis, hyponatremia, anemia, infection, MN, ETOH, adverse medicine reaction, overdose, stroke, this is not meant to be an all-inclusive list. EKG interpreted by me (3pts min.). @ -EKG interpreted by myself and demonstrates sinus rhythm with a rate of 87. NM interval 142. QRS 97. QTC 448. No acute ST segment elevations or depressions. Incomplete right bundle branch block X-rays interpreted by me (1pt min.). @ -Yes and demonstrates no acute intrathoracic process CT interpreted by me (1pt min.). @ -Yes and demonstrates no acute process. Old encephalomalacia U/S interpreted by me (1pt. min.). @ -None done What testing was considered but not performed or refused? (CT, X-rays, U/S, labs)? Why? @ -None What meds were considered but not given or refused? Why? @ -None Did you discuss the management of the patient with other professionals (gennaro laboy i.e. , PA, OUT OF SCHOOL HOURS CARE WORKER, lab, RT, psych nurse, social worker health services, nuclear technologist, teacher, collections officer, case management manager)? Give summary @ -Spoke with Dr. Thurston for admission Was smoking cessation discussed for >3mins.? @ -No Was critical care preformed (if so, how long)? @ -No Were there social determinants of health that impacted care today? How? (Homelessness, low income, unemployed, alcoholism, drug addiction, transportation, low edu. Level, literacy, decrease access to med. care, care home, rehab)? @ -No Was there de-escalation of care discussed even if they declined (Discuss DNR or withdrawal of care, Hospice)? DNR status @ -Yes patient wishes to be a DO NOT RESUSCITATE What co-morbidities impacted this encounter? (DM, HTN, Smoking, COPD, CAD, Cancer, CVA, ARF, Chemo, Hep., AIDS, mental health diagnosis, sleep apnea, morbid obesity)? @ -Protein calorie malnutrition, failure to thrive Was patient admitted / discharged? Hospital course, mention meds given and route, prescriptions, significant lab abnormalities, going to OR and other pertinent info. @ -Upon arrival patient is placed into room 1. He does have significant low blood pressure. IV is established patient is given a 2 L bolus normal saline. Laboratory studies conducted. Potassium 2.5. Lactic acid 5.3. Magnesium 0.9. Troponin is negative. Chest x-ray demonstrates no acute intrathoracic process. CT of the head demonstrates previous encephalomalacia with no acute process. Potassium and magnesium are replace. Patient does have improvement in his blood pressures. Recommended admission for which she was agreeable. Spoke with Dr. Thurston who agreed to admit the patient. Patient wishes to be a DO NOT RESUSCITATE Undiagnosed new problem with uncertain prognosis? @ -Yes Drug Therapy requiring intensive monitoring for toxicity (Heparin, Nitro, Insulin, Cardizem)? @ -No Were any procedures done? @ -No Diagnosis/symptom? @ -Acute weakness, acute hypotension, acute dehydration, acute hypokalemia, lactic acidosis, acute hypomagnesemia Acute, or Chronic, or Acute on Chronic? @ -Acute Uncomplicated (without systemic symptoms) or Complicated (systemic symptoms)? @ -Complicated Side effects of treatment? @ -No Exacerbation, Progression, or Severe Exacerbation? @ -No Poses a threat to life or bodily function? How? (Chest pain, USA, MN, pneumonia, PE, COPD, DKA, ARF, appy, cholecystitis, CVA, Diverticulitis, Homicidal, Suicidal, threat to staff... and all critical care pts) @ -Yes patient has significant hypotension which could lead to arrest - Lab Data Result diagrams: 08/26/22 16:27 08/26/22 16:27 Lab Results 08/24/22 08/24/22 08/24/22 Range/Units 18:20 18:20 18:20 WBC 9.9 (3.8-10.6) k/uL RBC 3.92 L (4.30-5.90) m/uL Hgb 13.3 (13.0-17.5) gm/dL Hct 39.2 (39.0-53.0) % MCV 99.9 (80.0-100.0) fL MCH 33.9 (25.0-35.0) pg MCHC 34.0 (31.0-37.0) g/dL RDW 13.6 (11.5-15.5) % Plt Count 253 (150-450) k/uL MPV 8.5 Neutrophils % 67 % Lymphocytes % 24 % Monocytes % 6 % Eosinophils % 1 % Basophils % 0 % Neutrophils # 6.6 (1.3-7.7) k/uL Lymphocytes # 2.3 (1.0-4.8) k/uL Monocytes # 0.6 (0-1.0) k/uL Eosinophils # 0.1 (0-0.7) k/uL Basophils # 0.0 (0-0.2) k/uL PT 11.2 (9.0-12.0) sec INR 1.1 (<1.2) APTT 25.8 (22.0-30.0) sec Sodium 136 L (137-145) mmol/L Potassium 2.5 L* (3.5-5.1) mmol/L Chloride 101 (98-107) mmol/L Carbon Dioxide 23 (22-30) mmol/L Anion Gap 12 mmol/L BUN 13 (9-20) mg/dL Creatinine 1.09 (0.66-1.25) mg/dL Est GFR (CKD-EPI)AfAm 77 (>60 ml/min/1.73 sqM) Est GFR (CKD-EPI)NonAf 67 (>60 ml/min/1.73 sqM) Glucose 119 H (74-99) mg/dL Lactic Ac Sepsis Rflx Plasma Lactic Acid Chano (0.7-2.0) mmol/L Calcium 7.6 L (8.4-10.2) mg/dL Magnesium 0.9 L* (1.6-2.3) mg/dL Total Bilirubin 1.3 (0.2-1.3) mg/dL AST 24 (17-59) U/L ALT 17 (4-49) U/L Alkaline Phosphatase 118 (38-126) U/L Troponin I (0.000-0.034) ng/mL NT-Pro-B Natriuret Pep pg/mL Total Protein 5.6 L (6.3-8.2) g/dL Albumin 2.8 L (3.5-5.0) g/dL TSH 2.390 (0.465-4.680) mIU/L 08/24/22 08/24/22 08/24/22 Range/Units 18:20 18:20 18:20 WBC (3.8-10.6) k/uL RBC (4.30-5.90) m/uL Hgb (13.0-17.5) gm/dL Hct (39.0-53.0) % MCV (80.0-100.0) fL MCH (25.0-35.0) pg MCHC (31.0-37.0) g/dL RDW (11.5-15.5) % Plt Count (150-450) k/uL MPV Neutrophils % % Lymphocytes % % Monocytes % % Eosinophils % % Basophils % % Neutrophils # (1.3-7.7) k/uL Lymphocytes # (1.0-4.8) k/uL Monocytes # (0-1.0) k/uL Eosinophils # (0-0.7) k/uL Basophils # (0-0.2) k/uL PT (9.0-12.0) sec INR (<1.2) APTT (22.0-30.0) sec Sodium (137-145) mmol/L Potassium (3.5-5.1) mmol/L Chloride (98-107) mmol/L Carbon Dioxide (22-30) mmol/L Anion Gap mmol/L BUN (9-20) mg/dL Creatinine (0.66-1.25) mg/dL Est GFR (CKD-EPI)AfAm (>60 ml/min/1.73 sqM) Est GFR (CKD-EPI)NonAf (>60 ml/min/1.73 sqM) Glucose (74-99) mg/dL Lactic Ac Sepsis Rflx Plasma Lactic Acid Chano 5.3 H* (0.7-2.0) mmol/L Calcium (8.4-10.2) mg/dL Magnesium (1.6-2.3) mg/dL Total Bilirubin (0.2-1.3) mg/dL AST (17-59) U/L ALT (4-49) U/L Alkaline Phosphatase (38-126) U/L Troponin I <0.012 (0.000-0.034) ng/mL NT-Pro-B Natriuret Pep 1230 pg/mL Total Protein (6.3-8.2) g/dL Albumin (3.5-5.0) g/dL TSH (0.465-4.680) mIU/L 08/24/22 Range/Units 18:47 WBC (3.8-10.6) k/uL RBC (4.30-5.90) m/uL Hgb (13.0-17.5) gm/dL Hct (39.0-53.0) % MCV (80.0-100.0) fL MCH (25.0-35.0) pg MCHC (31.0-37.0) g/dL RDW (11.5-15.5) % Plt Count (150-450) k/uL MPV Neutrophils % % Lymphocytes % % Monocytes % % Eosinophils % % Basophils % % Neutrophils # (1.3-7.7) k/uL Lymphocytes # (1.0-4.8) k/uL Monocytes # (0-1.0) k/uL Eosinophils # (0-0.7) k/uL Basophils # (0-0.2) k/uL PT (9.0-12.0) sec INR (<1.2) APTT (22.0-30.0) sec Sodium (137-145) mmol/L Potassium (3.5-5.1) mmol/L Chloride (98-107) mmol/L Carbon Dioxide (22-30) mmol/L Anion Gap mmol/L BUN (9-20) mg/dL Creatinine (0.66-1.25) mg/dL Est GFR (CKD-EPI)AfAm (>60 ml/min/1.73 sqM) Est GFR (CKD-EPI)NonAf (>60 ml/min/1.73 sqM) Glucose (74-99) mg/dL Lactic Ac Sepsis Rflx Y Plasma Lactic Acid [place]ano (0.7-2.0) mmol/L Calcium (8.4-10.2) mg/dL Magnesium (1.6-2.3) mg/dL Total Bilirubin (0.2-1.3) mg/dL AST (17-59) U/L ALT (4-49) U/L Alkaline Phosphatase (38-126) U/L Troponin I (0.000-0.034) ng/mL NT-Pro-B Natriuret Pep pg/mL Total Protein (6.3-8.2) g/dL Albumin (3.5-5.0) g/dL TSH (0.465-4.680) mIU/L Disposition Clinical Impression: Hypotension, Hypokalemia, Hypomagnesemia, Failure to thrive, Chest pain Disposition: ADMITTED IP TO THIS [facility] Condition: Stable Is patient prescribed a controlled substance at d/c from ED?: No Time of Disposition: 20:07 Decision to Admit Reason: Admit from EC Decision Date: 08/24/22 Decision Time: 20:07
[2022-08-24] MEDS ORDERED: SODIUM CHLORIDE 0.9% 1,000 ML IV ONE (18:20)
[2022-08-24 18:27] LABS: Basophils % (A) 0 %; Eosinophils # (A) 0.1 k/uL (0-0.7); Eosinophils % (A) 1 %; HCT 39.2 % (39.0-53.0); HGB 13.3 gm/dL (13.0-17.5); Lymphocytes # (A) 2.3 k/uL (1.0-4.8); Lymphocytes % (A) 24 %; MCH 33.9 pg (25.0-35.0); MCV 99.9 fL (80.0-100.0); Mean Platelet Volume 8.5; Monocytes # (A) 0.6 k/uL (0-1.0); Monocytes % (A) 6 %; Neutrophils # (A) 6.6 k/uL (1.3-7.7); Neutrophils % (A) 67 %; Platelet Count 253 k/uL (150-450); RBC 3.92 m/uL (4.30-5.90); RDW 13.6 % (11.5-15.5); WBC 9.9 k/uL (3.8-10.6)
[2022-08-24 18:37] LABS: INR 1.1 (<1.2); Partial Thromboplastin Time 25.8 sec (22.0-30.0); Prothrombin Time 11.2 sec (9.0-12.0)
--- NOTE | 2022-08-24 18:49 | CT ---
EXAMINATION TYPE: CT brain cspine wo con CT DLP: 1290.7 mGycm, Automated exposure control for dose reduction was used. DATE OF EXAM: 08/24/2022 6:37 PM COMPARISON: 04/07/2022 CLINICAL INDICATION:Male, 76 years old with history of headache, neck pain, hx stroke; Headache, Dizz y, Hx of stroke. TECHNIQUE: Brain: Multiple axial CT images of the brain were obtained without IV contrast. Cspine: Axial CT images from the skull base to the inferior aspect of T2 we obtained without intraven ous contrast. Coronal and sagittal reformatted images were also reviewed. FINDINGS: Brain: Extra-axial spaces: No abnormal extra-axial fluid collections. Ventricular system: Within normal limits Cerebral parenchyma: Remote left posterior frontal/parietal region injury with encephalomalacia. No a cute intraparenchymal hemorrhage or mass effect. The lombardo-white junction is well differentiated. Cerebellum: Unremarkable. Mass effect: No evidence of midline shift. Intracranial vasculature: Atherosclerotic calcifications of the intracranial vessels. Soft tissues: Normal. Calvarium/osseous structures: No depressed skull fracture. Paranasal sinuses and mastoid air cells: Opacification of a few of the bilateral mastoid air cells. E longated styloid processes bilaterally with pseudoarthrosis. Visualized orbits: Orbital contents are intact. Cervical spine: Fracture: No acute fracture remote injury to the right clavicle. Osseous structures: Multilevel degenerative disc disease changes with endplate spurring and disc oste ophyte complex's. Vertebral alignment: Within normal limits. Spinal canal/Neural Foramina: Disc osteophyte complexes at C4-C5, C5-6 and C6-C7 with at least mild s dhruv canal stenosis. Facet joint uncovertebral joint arthropathy scattered throughout the cervical s pine with varying degrees of neural foraminal stenosis. Neck soft tissues: Prevertebral soft tissues are within normal limits. Atherosclerosis of the carotid bifurcations. Other: The airway is patent. The lung apices are clear. IMPRESSION: 1. No acute intracranial process. 2. Remote left posterior frontal/parietal region injury with encephalomalacia. 3. No evidence of cervical spine fracture. 4. Jolp-xe-[id number] multilevel degenerative disc disease. 5. 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 6. Trace bilateral mastoid air cell effusions.
[2022-08-24 19:05] LABS: ALT 17 U/L (4-49); AST 24 U/L (17-59); African American GFR (CKD) 77 (>60 ml/min/1.73 sqM); Albumin 2.8 g/dL (3.5-5.0); Alkaline Phosphatase 118 U/L (38-126); Anion Gap 12 mmol/L; Blood Urea Nitrogen 13 mg/dL (9-20); Calcium 7.6 mg/dL (8.4-10.2); Carbon Dioxide 23 mmol/L (22-30); Chloride 101 mmol/L (98-107); Glucose 119 mg/dL (74-99); Non-African American GFR(CKD) 67 (>60 ml/min/1.73 sqM); Sodium 136 mmol/L (137-145); Total Bilirubin 1.3 mg/dL (0.2-1.3); Total Protein 5.6 g/dL (6.3-8.2)
[2022-08-24 19:23] LABS: Magnesium 0.9 mg/dL (1.6-2.3); Potassium 2.5 mmol/L (3.5-5.1)
[2022-08-24] MEDS ORDERED: POTASSIUM CHLORIDE 20 MEQ in WATER FOR INJECTION 1 100ML.BAG IVPB STA (19:31)
[2022-08-24] MEDS ORDERED: POTASSIUM CHLORIDE ER 20 MEQ TAB.ER PO STA (19:31)
--- NOTE | 2022-08-24 19:38 | XR ---
EXAMINATION TYPE: XR chest 2V DATE OF EXAM: 08/24/2022 7:09 PM COMPARISON: Chest radiographs from TECHNIQUE: XR chest 2V Frontal and lateral views of the chest. CLINICAL INDICATION:Male, 76 years old with history of Weakness; FINDINGS: Lungs/Pleura: There is flattening of the diaphragm with increased lucency of the lungs. No evidence o f pneumothorax, pleural effusion or focal consolidation. Pulmonary vascularity: Unremarkable. Heart/mediastinum: Cardiomediastinal silhouette is unremarkable. A loop recorder projects over the le ft thorax over the heart. Musculoskeletal: No acute osseous pathology. Remote injury to the right clavicle medially. IMPRESSION: 1. No acute cardiopulmonary disease process. 2. COPD changes.
[2022-08-24] MEDS ORDERED: NALOXONE 0.4 MG/ML 1 ML VIAL IV PRN (20:28)
[2022-08-24] MEDS: MAGNESIUM SULFATE-D5W PMX 1 GM in DEXTROSE/WATER 1 100ML.BAG IVPB SCH ×2 (21:59→22:54)
[2022-08-24] MEDS: SODIUM CHLORIDE 0.9% 1,000 ML IV SCH (23:00)
[2022-08-25] MEDS: MAGNESIUM SULFATE-D5W PMX 1 GM in DEXTROSE/WATER 1 100ML.BAG IVPB SCH (00:05)
[2022-08-25] MEDS ORDERED: TEMAZEPAM 15 MG CAP PO PRN (07:44)
[2022-08-25] MEDS ORDERED: DIPHENOX-ATROP 2.5-0.025 MG 1 EACH TAB PO PRN ×2 (07:44→13:33)
[2022-08-25] MEDS: HYDROcodone/APAP 5-325MG 1 EACH TAB PO PRN ×2 (07:49→16:09)
[2022-08-25] MEDS: LOSARTAN 25 MG TAB PO SCH (08:15)
[2022-08-25] MEDS: CLOPIDOGREL 75 MG TAB PO SCH (08:15)
[2022-08-25] MEDS: PANTOPRAZOLE 40 MG TABLET PO SCH (08:16)
[2022-08-25] MEDS: ASPIRIN 81 MG PO SCH (08:16)
[2022-08-25] MEDS: levETIRAcetam 500 MG TAB PO SCH ×2 (08:16→19:54)
[2022-08-25] MEDS: METOPROLOL SUCCINATE (ER) 25 MG TAB.ER.24H PO SCH (08:16)
[2022-08-25] MEDS: SODIUM CHLORIDE 0.9% 1,000 ML IV SCH ×3 (10:27→21:44)
[2022-08-25 10:51] LABS: Appearance,Urine Clear (Clear); Bilirubin,Urine Negative (Negative); Blood,Urine Negative (Negative); Color,Urine Yellow; Glucose,Urine (UA) Negative (Negative); Ketones,Urine Negative (Negative); Leukocyte Esterase,Urine Trace (Negative); Mucus,Urine Rare /hpf; Nitrite,Urine Negative (Negative); Protein,Urine 1+ (Negative); RBC,Urine 1 /hpf (0-5); Specific Gravity,Urine 1.024 (1.001-1.035); Squamous Epithelial Cell,Urine <1 /hpf (0-4); WBC,Urine 3 /hpf (0-5)
[2022-08-25 14:17] VITALS: BMI 18.4
--- NOTE | 2022-08-25 14:42 | P.HPIM ---
History of Present Illness H&P Date: 08/18/22 Chief Complaint: weakness, fatigue, collapse this is a 76-year-old male well known to my practice who lives alone, in the past was a strong daily wine drinker smoked up to 2 packs of cigarettes a day, known history of subtotal colectomy secondary to severe diverticular disease, presents to the emergency room and for subsequent admission to the hospital secondary to severe debility, malnutrition, and electrolyte imbalance, he had a visiting nurse and home therapies, which basically he told not to come back to the house primarily because they told them he was unable to live alone at home by himself Cornel needs to be in an assisted living situation he is currently not capable of caring for activities of daily living, Mister Be has 3 adult children who have their own families and his son does not drive and [place], he really needs to be in assisted living situation and he's not eaten or cook for himself and probably a couple of weeks presents today for admission and placement Review of Systems Constitutional: Reports anorexia (doesn't have the strength to prepare meals for himself), Reports fatigue, Reports malaise, Reports poor appetite, Reports weakness, Reports weight loss Ears: bilateral: decreased hearing Ears, nose, mouth and throat: Reports as per HPI Cardiovascular: Reports irregular heart beat, Reports rapid heart beat Respiratory: Reports as per HPI Gastrointestinal: Reports diarrhea (patient is status post subtotal colectomy secondary to diverticular disease, he has a dumping syndrome) Genitourinary: Reports as per HPI Musculoskeletal: Reports frequent falls, Reports loss of height, Reports low back pain, Reports muscle weakness, Reports myalgias Integumentary: Reports brittle nails, Reports dryness, Reports onychomycosis Neurological: Reports seizures (suspect alcohol withdrawal seizures, patient has been on Keppra for approximately 1 year) Psychiatric: Reports depression, Reports irritability, Reports mood swings, Reports paranoia, Reports sadness/tearfulness, Reports sleep disturbances Endocrine: Reports cold intolerance Past Medical History Past Medical History: Coronary Artery Disease (CAD), Cancer, Chest Pain / Angina, COPD, CVA/TIA, Dementia, Hearing Disorder / Deafness, Hypertension, Myocardial Infarction ([place]), Osteoarthritis (OA), Rheumatoid Arthritis (RA), Seizure Disorder Additional Past Medical History / Comment(s): Multiple CVAs with R sided weakness/mobility problems/FALLS, seizure after CVA, ischemic cardiomyopathy, increasing confusion per family, past ETOH abuse but none past couple months, concussions, chronic low back pain, skin cancer removed from nose, [place] bilaterally, diverticular disease/benign colon polyp Last Myocardial Infarction Date:: 2011 History of Any Multi-Drug Resistant Organisms: None Reported Past Surgical History: Bowel Resection, Cholecystectomy, Heart Catheterization With Stent, Orthopedic Surgery, Tonsillectomy Additional Past Surgical History / Comment(s): PCI/stents, 10/06/21 R brachiocephalic artery stenosis/angiogram and balloon angioplasty, Loop recorder, retinal detachments with 6 L eye surgeries and R eye surgery, sking cancer removed from nose, clavicular fracture with surgical repair, colonoscopy/polyp removed, orchiectomy. Past Anesthesia/Blood Transfusion Reactions: No Reported Reaction Date of Last Stent Placement:: 2019 Past Psychological History: Depression Smoking Status: Former smoker Past Alcohol Use History: Abuse Past Drug Use History: None Reported - Past Family History Daughter(s) Family Medical History: Cancer Additional Family Medical History / Comment(s): Breast cancer. 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 [employer] for employment (including self-employed).: Yes (probable alcohol withdrawal) Medications and Allergies Home Medications Medication Instructions Recorded Confirmed Type RX: Aspirin 81 mg PO DAILY 6 Days #30 tab 09/14/21 08/24/22 Rx RX: Clopidogrel [Plavix] 75 mg PO DAILY #30 tab 09/14/21 08/24/22 Rx RX: levETIRAcetam [Keppra] 500 mg PO Q12H #60 tab 09/14/21 08/24/22 Rx RX: Losartan Potassium [Cozaar] 25 mg PO DAILY 10/01/21 08/24/22 History RX: Metoprolol Succinate (ER) 12.5 mg PO DAILY 10/01/21 08/24/22 History [Toprol XL] RX: Pravastatin Sodium [Pravachol] 40 mg PO HS 10/01/21 08/24/22 History RX: Pantoprazole Sodium [Protonix] 20 mg PO DAILY 11/03/21 08/24/22 History RX: Diphenoxylate HCl/Atropine 1 tab PO QID PRN 04/02/22 08/24/22 History [Lomotil 2.5-0.025 mg Tablet] RX: Ramelteon [Rozerem] 8 mg PO HS PRN 04/02/22 08/24/22 History Allergies Allergy/AdvReac Type Severity Reaction Status Date / Time venom-honey bee Allergy Anaphylaxis Verified 08/24/22 17:59 [bee venom (honey bee)] Physical Exam Osteopathic Statement: *. No significant issues noted on an osteopathic structural exam other than those noted in the History and Physical/Consult. Vitals: Vital Signs Temp Pulse Resp BP Pulse Ox 08/25/22 12:18 72 18 108/76 98 08/25/22 09:32 82 16 102/73 98 08/25/22 07:40 97.9 F 80 18 109/74 98 08/25/22 06:53 70 17 128/77 08/25/22 02:00 78 18 105/78 98 08/24/22 23:00 83 17 120/81 100 08/24/22 19:54 64 16 95/69 08/24/22 16:18 98.1 F 87 20 99/56 98 Intake and Output 08/24/22 08/25/22 08/25/22 22:59 06:59 14:59 Other: Weight 56.699 kg General: [Patient awake, alert and oriented times 3. Patient in no acute distress. cachectic HEENT: [PERRL. EOMI. No pharyngeal erythema or exudate.] Neck: [No adenopathy.] Cardiac: [Heart regular in rate and rhythm. No S3. No S4. No clicks, rubs. No murmur.] Lungs: [Clear to auscultation bilaterally.] Abdomen: [No mass. No organomegaly. Bowel sounds presnt and normoactive in all 4 quadrants.] Extremes: [No edema no cyanosis no claudication normal pulses] : normal male genitalia Musculoskeletal: [No joint erythema, edema or tenderness.] Skin: [No rash.] Neurologic: [No lateralizing deficits. CN II - XII grossly intact.] Lymphatic: [No adenopathy.] Results CBC & Chem 7: 08/24/22 18:20 08/24/22 18:20 Labs: Abnormal Lab Results - Last 24 Hours (Table) 05/29/23 05/29/23 05/29/23 Range/Units 18:20 18:20 18:20 RBC 3.92 L (4.30-5.90) m/uL Sodium 136 L (137-145) mmol/L Potassium 2.5 L* (3.5-5.1) mmol/L Glucose 119 H (74-99) mg/dL Plasma Lactic Acid [place] 5.3 H* (0.7-2.0) mmol/L Calcium 7.6 L (8.4-10.2) mg/dL Magnesium 0.9 L* (1.6-2.3) mg/dL Total Protein 5.6 L (6.3-8.2) g/dL Albumin 2.8 L (3.5-5.0) g/dL Urine Protein (Negative) Ur Leukocyte Esterase (Negative) Urine Mucus (None) /hpf 08/25/22 Range/Units 10:12 RBC (4.30-5.90) m/uL Sodium (137-145) mmol/L Potassium (3.5-5.1) mmol/L Glucose (74-99) mg/dL Plasma Lactic Acid [place] (0.7-2.0) mmol/L Calcium (8.4-10.2) mg/dL Magnesium (1.6-2.3) mg/dL Total Protein (6.3-8.2) g/dL Albumin (3.5-5.0) g/dL Urine Protein 1+ H (Negative) Ur Leukocyte Esterase Trace H (Negative) Urine Mucus Rare H (None) /hpf Assessment and Plan (1) Failure to thrive Current Visit: Yes Status: Acute Code(s): WFE6400 - SNOMED Code(s): 43154847 (2) Hypokalemia Current Visit: Yes Status: Acute Code(s): E87.6 - HYPOKALEMIA SNOMED Code(s): 39649477 (3) Hypomagnesemia Current Visit: Yes Status: Acute Code(s): E83.42 - HYPOMAGNESEMIA SNOMED Code(s): 196494223 (4) Hypotension Current Visit: Yes Status: Acute Code(s): I95.9 - HYPOTENSION, UNSPECIFIED SNOMED Code(s): 00044613 (5) CAD (coronary artery disease) Current Visit: No Status: Acute Code(s): I25.10 - ATHSCL HEART DISEASE OF [place] CORONARY ARTERY W/O ANG PCTRS SNOMED Code(s): 00375237 (6) COPD (chronic obstructive pulmonary disease) Current Visit: No Status: Acute Code(s): J44.9 - CHRONIC OBSTRUCTIVE PULMONARY DISEASE, UNSPECIFIED SNOMED Code(s): 52191839 (7) CVA (cerebral vascular accident) Current Visit: No Status: Acute Code(s): I63.9 - CEREBRAL INFARCTION, UNSPECIFIED SNOMED Code(s): 455885347 (8) Debility Current Visit: No Status: Acute Code(s): R53.81 - OTHER MALAISE SNOMED Code(s): 83828362 (9) Dehydration Current Visit: No Status: Acute Code(s): E86.0 - DEHYDRATION SNOMED C ode(s): 42497789 (10) Fall Current Visit: No Status: Acute Code(s): W19.XXXA - UNSPECIFIED FALL, INITIAL ENCOUNTER SNOMED Code(s): 1380077 Time with Patient: Greater than 30
[2022-08-25 17:18] LABS: African American GFR (CKD) >90 (>60 ml/min/1.73 sqM); Anion Gap 6 mmol/L; Blood Urea Nitrogen 13 mg/dL (9-20); Calcium 6.7 mg/dL (8.4-10.2); Carbon Dioxide 22 mmol/L (22-30); Chloride 111 mmol/L (98-107); Glucose 107 mg/dL (74-99); Magnesium 1.7 mg/dL (1.6-2.3); Non-African American GFR(CKD) >90 (>60 ml/min/1.73 sqM); Sodium 139 mmol/L (137-145)
[2022-08-25] MEDS ORDERED: Potassium Replacement Protocol 1 EACH MISC MISCELLANE PRN (19:41)
[2022-08-25] MEDS ORDERED: Magnesium Replacement Protocol 1 EACH MISC MISCELLANE PRN (19:42)
[2022-08-25] MEDS: PRAVASTATIN SODIUM 40 MG TAB PO SCH (19:54)
[2022-08-25] MEDS: POTASSIUM CHLORIDE ER 20 MEQ TAB.ER PO SCH ×2 (19:54→21:44)
[2022-08-26] MEDS: HYDROcodone/APAP 5-325MG 1 EACH TAB PO PRN ×4 (00:56→21:42)
[2022-08-26] MEDS: SODIUM CHLORIDE 0.9% 1,000 ML IV SCH ×3 (06:07→17:29)
[2022-08-26] MEDS: PANTOPRAZOLE 40 MG TABLET PO SCH (06:07)
[2022-08-26] MEDS: ASPIRIN 81 MG PO SCH (08:15)
[2022-08-26] MEDS: levETIRAcetam 500 MG TAB PO SCH ×2 (08:15→19:38)
[2022-08-26] MEDS: CLOPIDOGREL 75 MG TAB PO SCH (08:15)
[2022-08-26] MEDS: LOSARTAN 25 MG TAB PO SCH (08:15)
[2022-08-26] MEDS: METOPROLOL SUCCINATE (ER) 25 MG TAB.ER.24H PO SCH (08:15)
[2022-08-26] MEDS: MAGNESIUM SULFATE-D5W PMX 1 GM in DEXTROSE/WATER 1 100ML.BAG IVPB SCH ×2 (11:06→12:11)
--- NOTE | 2022-08-26 16:20 | P.PN ---
Subjective Progress Note Date: 08/26/22 Principal diagnosis: Weakness fatigue collapse Patient is awake alert vital signs are stable patient is afebrile and tolerating diet well is consuming more than 50% of his tray appears to be stronger than yesterday this patient may require a guardian evidently requires rehab placement possible assisted living placement he is incapable of caring for activities of daily living and is not able to live alone Objective - Vital Signs Vital signs: Vital Signs Temp 98.2 F 08/26/22 15:12 Pulse 72 08/26/22 15:12 Resp 20 08/26/22 15:12 BP 101/61 08/26/22 15:12 Pulse Ox 98 08/26/22 15:12 FiO2 Intake & Output 08/25/22 08/26/22 08/26/22 18:59 06:59 18:59 Intake Total 180 180 Balance 180 180 Weight 56.699 kg 56.699 kg Intake: Oral 180 180 Other: Voiding Method Urinal Urinal # Voids 1 2 2 - Exam General: [Patient awake, alert and oriented times 3. Patient in no acute distress Cachectic, fatigued HEENT: [PERRL. EOMI. No pharyngeal erythema or exudate.] Neck: [No adenopathy.] Cardiac: [Heart regular in rate and rhythm. No S3. No S4. No clicks, rubs. No murmur.] Lungs: [Clear to auscultation bilaterally.] Abdomen: [No mass. No organomegaly. Bowel sounds presnt and normoactive in all 4 quadrants.] Extremes: [No edema no cyanosis no claudication normal pulses] : Normal male genitalia Musculoskeletal: [No joint erythema, edema or tenderness.] Skin: [No rash.] Neurologic: [No lateralizing deficits. CN II - XII grossly intact.] Lymphatic: [No adenopathy.] - Labs CBC & Chem 7: 08/24/22 18:20 08/25/22 16:13 Labs: Abnormal Lab Results - Last 24 Hours (Table) 08/25/22 08/26/22 Range/Units 16:13 08:34 Potassium 3.0 L (3.5-5.1) mmol/L Chloride 111 H (98-107) mmol/L Glucose 107 H (74-99) mg/dL Calcium 6.7 L (8.4-10.2) mg/dL Magnesium 1.5 L (1.6-2.3) mg/dL Assessment and Plan (1) Failure to thrive Current Visit: Yes Status: Acute Code(s): [id number] - SNOMED Code(s): 53511704 (2) Hypokalemia Current Visit: Yes Status: Acute Code(s): E87.6 - HYPOKALEMIA SNOMED Code(s): 51063296 (3) Hypomagnesemia Current Visit: Yes Status: Acute Code(s): E83.42 - HYPOMAGNESEMIA SNOMED Code(s): 590992459 (4) Hypotension Current Visit: Yes Status: Acute Code(s): I95.9 - HYPOTENSION, UNSPECIFIED SNOMED Code(s): 96403733 (5) CAD (coronary artery disease) Current Visit: No Status: Acute Code(s): I25.10 - ATHSCL HEART DISEASE OF [place] CORONARY ARTERY W/O ANG PCTRS SNOMED Code(s): 12133546 (6) COPD (chronic obstructive pulmonary disease) Current Visit: No Status: Acute Code(s): J44.9 - CHRONIC OBSTRUCTIVE PULMONARY DISEASE, UNSPECIFIED SNOMED Code(s): 54748626 (7) CVA (cerebral vascular accident) Current Visit: No Status: Acute Code(s): I63.9 - CEREBRAL INFARCTION, UNSPECIFIED SNOMED Code(s): 719842790 (8) Debility Current Visit: No Status: Acute Code(s): R53.81 - OTHER [place] SNOMED Code(s): 26358308 (9) Dehydration Current Visit: No Status: Acute Code(s): E86.0 - DEHYDRATION SNOMED Code(s): 82119103 (10) Fall Current Visit: No Status: Acute Code(s): W19.XXXA - UNSPECIFIED FALL, INITIAL ENCOUNTER SNOMED Code(s): 7446998 Plan: Weakness fatigue Malnutrition Hypokalemia Hypomagnesemia Placement of electrolytes Proved nutritional state Rehab placement Time with Patient: Greater than 30
[2022-08-26 17:05] LABS: HCT 30.9 % (39.0-53.0); HGB 10.4 gm/dL (13.0-17.5); MCHC 33.6 g/dL (31.0-37.0); Macrocytosis Slight; Mean Platelet Volume 8.3; Platelet Count 201 k/uL (150-450); RBC 3.06 m/uL (4.30-5.90); WBC 7.9 k/uL (3.8-10.6)
[2022-08-26 17:12] LABS: ALT 13 U/L (4-49); AST 21 U/L (17-59); African American GFR (CKD) >90 (>60 ml/min/1.73 sqM); Albumin 1.9 g/dL (3.5-5.0); Alkaline Phosphatase 109 U/L (38-126); Anion Gap 4 mmol/L; Blood Urea Nitrogen 13 mg/dL (9-20); Calcium 6.6 mg/dL (8.4-10.2); Carbon Dioxide 23 mmol/L (22-30); Chloride 112 mmol/L (98-107); Glucose 141 mg/dL (74-99); Magnesium 2.2 mg/dL (1.6-2.3); Non-African American GFR(CKD) >90 (>60 ml/min/1.73 sqM); Potassium 3.2 mmol/L (3.5-5.1); Sodium 139 mmol/L (137-145); Total Bilirubin 0.6 mg/dL (0.2-1.3); Total Protein 4.2 g/dL (6.3-8.2)
[2022-08-26] MEDS: POTASSIUM CHLORIDE ER 20 MEQ TAB.ER PO SCH ×2 (17:29→18:44)
[2022-08-26] MEDS: PRAVASTATIN SODIUM 40 MG TAB PO SCH (19:38)
[2022-08-27] MEDS: HYDROcodone/APAP 5-325MG 1 EACH TAB PO PRN ×2 (04:33→11:02)
[2022-08-27] MEDS: SODIUM CHLORIDE 0.9% 1,000 ML IV SCH ×2 (04:34→13:02)
[2022-08-27] MEDS: PANTOPRAZOLE 40 MG TABLET PO SCH (06:34)
[2022-08-27] MEDS: CLOPIDOGREL 75 MG TAB PO SCH (09:02)
[2022-08-27] MEDS: METOPROLOL SUCCINATE (ER) 25 MG TAB.ER.24H PO SCH (09:02)
[2022-08-27] MEDS: ASPIRIN 81 MG PO SCH (09:02)
[2022-08-27] MEDS: LOSARTAN 25 MG TAB PO SCH (09:02)
[2022-08-27] MEDS: levETIRAcetam 500 MG TAB PO SCH (09:02)
[2022-08-27 09:09] VITALS: RESP 16
[2022-08-27] MEDS ORDERED: SIMETHICONE 80 MG CHEWABLE PO PRN (09:21)
[2022-08-27 12:40] VITALS: BP 116/76; PULSE 70; TEMP 98.4
--- NOTE | 2022-08-27 13:07 | P.DS ---
Providers Date of admission: 08/24/22 20:07 Expected date of discharge: 08/27/22 Attending physician: Aguilar Thurston Primary care physician: Aguilar Thurston - Discharge Diagnosis(es) (1) Failure to thrive Current Visit: Yes Status: Acute (2) Hypokalemia Current Visit: Yes Status: Acute (3) Hypomagnesemia Current Visit: Yes Status: Acute (4) Hypotension Current Visit: Yes Status: Acute (5) CAD (coronary artery disease) Current Visit: No Status: Acute (6) COPD (chronic obstructive pulmonary disease) Current Visit: No Status: Acute (7) CVA (cerebral vascular accident) Current Visit: No Status: Acute (8) Debility Current Visit: No Status: Acute (9) Dehydration Current Visit: No Status: Acute (10) Fall Current Visit: No Status: Acute Hospital Course: was admitted totally debilitated, unable to care for activities of daily living In 1 week and to the point where he was unable to walk without support General: [Patient awake, alert and oriented times 3. Patient in no acute distress.] HEENT: [PERRL. EOMI. No pharyngeal erythema or exudate.] Neck: [No adenopathy.] Cardiac: [Heart regular in rate and rhythm. No S3. No S4. No clicks, rubs. No murmur.] Lungs: [Clear to auscultation bilaterally.] Abdomen: [No mass. No organomegaly. Bowel sounds presnt and normoactive in all 4 quadrants.] Extremes: [No edema no cyanosis no claudication normal pulses] : [] Musculoskeletal: [No joint erythema, edema or tenderness.] Skin: [No rash.] Neurologic: [No lateralizing deficits. CN II - XII grossly intact.] Lymphatic: [No adenopathy.] Patient Condition at Discharge: Stable Plan - Discharge Summary Discharge Rx Participant: Yes New Discharge Prescriptions: New HYDROcodone/APAP 10-325MG [[place] 10-325] 1 tab PO Q4HR PRN 3 Days #18 tab PRN Reason: Pain Scale 3 To 5 No Action levETIRAcetam [Keppra] 500 mg PO Q12H #60 tab Clopidogrel [Plavix] 75 mg PO DAILY #30 tab Pantoprazole Sodium [Protonix] 20 mg PO DAILY Diphenoxylate HCl/Atropine [Lomotil 2.5-0.025 mg Tablet] 1 tab PO QID PRN PRN Reason: Diarrhea Aspirin 81 mg PO DAILY 6 Days #30 tab Metoprolol Succinate (ER) [Toprol XL] 12.5 mg PO DAILY Losartan Potassium [Cozaar] 25 mg PO DAILY Pravastatin Sodium [Pravachol] 40 mg PO HS Ramelteon [Rozerem] 8 mg PO HS PRN PRN Reason: SLEEP Discharge Medication List Aspirin 81 mg PO DAILY 6 Days #30 tab 09/14/21 [Rx] Clopidogrel [Plavix] 75 mg PO DAILY #30 tab 09/14/21 [Rx] levETIRAcetam [Keppra] 500 mg PO Q12H #60 tab 09/14/21 [Rx] Losartan Potassium [Cozaar] 25 mg PO DAILY 10/01/21 [History] Metoprolol Succinate (ER) [Toprol XL] 12.5 mg PO DAILY 10/01/21 [History] Pravastatin Sodium [Pravachol] 40 mg PO HS 10/01/21 [History] Pantoprazole Sodium [Protonix] 20 mg PO DAILY 11/03/21 [History] Diphenoxylate HCl/Atropine [Lomotil 2.5-0.025 mg Tablet] 1 tab PO QID PRN 04/02/22 [History] Ramelteon [Rozerem] 8 mg PO HS PRN 04/02/22 [History] HYDROcodone/APAP 10-325MG [[place] 10-325] 1 tab PO Q4HR PRN 3 Days #18 tab 08/27/22 [Rx] Follow up Appointment(s)/Referral(s): Aguilar Thurston Jr, [Primary Care Provider] - 1-2 days Activity/Diet/Wound Care/Special Instructions: Discharge to rehab unit Discharge Disposition: TRANSFER TO SNF/ECF Care Plan Goals (MU): To enhance and improved rehab potential improved strength improve endurance
--- NOTE | 2022-08-27 14:59 | CDI ---
Documentation Clarification Form Date: 08/27/2022 02:39:14 PM From: Lia Jackson RN, CCDS Admit Date: 08/24/2022 08:07:00 PM Patient Name: Cornel Miranda Visit Number: [id number] Discharge Date: ATTENTION: The Clinical Documentation Specialists (CDI) and [facility] Coding Staff appreciate your assistance in clarifying documentation. Please respond to the clarification below the line at the bottom and electronically sign. The CDI & [facility] Coding staff will review the response and follow-up if needed. Please note: Queries are made part of the Legal Health Record. If you have any questions, please contact the author of this message via ITS. Dr. Aguilar Thurston Malnutrition is documented in the progress note on 08/26/22. Additional clarification regarding the severity of malnutrition is requested. History/Risk Factors: CAD CA, CVA, COPD, HTN, [place], Dementia, Rheumatoid arthritis, Seizure, ischemic cardiomyopathy, Confusion per family former smoker Clinical Indicators: 76-year-old male present with complaints of weakness, fatigue, collapse, difficulty with eating, failure to thrive. He has difficulty with left arm due to tremors and prior CVA. Current BMI: 18.5 5 ft. 9 in Insufficient energy intake: 50-75 % Weight Loss: Underweight Loss of subcutaneous fat: Mild subcutaneous fat loss: orbitals, triceps mild muscle wasting: Clavicle, and patellar region Fluid accumulation: Decreased hand oracle manager strength: RD Consult Assessment: Malnutrition Moderate in the content of chronic illness 08/24 Labs: Sodium 136, K+ 2.5 Mag 0.9, and Calcium 7.6 Total Protein 5.6 Albumin 2.8 Lactic acid 5.3 Treatment: Dietary Consult: Yes Nutrition education provided Supplements: Ensure Enlive TID Monitor PO intake of supplements PPN/TPN: Lab monitoring: Please clarify the type of malnutrition, if known: [ ] Mild Protein-Calorie Malnutrition [ x ] Moderate Protein-Calorie Malnutrition [ ] Severe Protein-Calorie Malnutrition [ ] Other condition, please specify [ ] Unable to Determine (Template Last Revised: May 2020) MTDD
== END 2022-08-27 14:02 | DRG 641 ==
LOC: EC 16:06 → 3SCARD 20:07
PROVIDERS: ADMIT Family Medicine; ATTEND Family Medicine
DX: E87.6 Hypokalemia (principal); Z68.1 Body mass index [BMI] 19.9 or less, adult; I69.351 Hemiplegia and hemiparesis following cerebral infarction affecting right dominant side; F03.93 Unspecified dementia, unspecified severity, with mood disturbance; E44.0 Moderate protein-calorie malnutrition; E83.42 Hypomagnesemia; E86.0 Dehydration; R53.81 Other malaise; J44.9 Chronic obstructive pulmonary disease, unspecified; I45.10 Unspecified right bundle-branch block; I25.5 Ischemic cardiomyopathy; I95.9 Hypotension, unspecified; F32.A Depression, unspecified; K57.90 Diverticulosis of intestine, part unspecified, without perforation or abscess without bleeding; Z66 Do not resuscitate; W19.XXXA Unspecified fall, initial encounter; M06.9 Rheumatoid arthritis, unspecified; I10 Essential (primary) hypertension; I25.10 Atherosclerotic heart disease of native coronary artery without angina pectoris; F10.11 Alcohol abuse, in remission; G40.909 Epilepsy, unspecified, not intractable, without status epilepticus; M19.90 Unspecified osteoarthritis, unspecified site; H91.90 Unspecified hearing loss, unspecified ear; Z85.828 Personal history of other malignant neoplasm of skin; Z79.899 Other long term (current) drug therapy; Z79.82 Long term (current) use of aspirin; Z79.02 Long term (current) use of antithrombotics/antiplatelets; Z95.5 Presence of coronary angioplasty implant and graft; I25.2 Old myocardial infarction; Z87.891 Personal history of nicotine dependence
CPT/HCPCS: 36415; 70450; 71046; 72125; 80048; 80053; 81001; 83605; 83735; 83880; 84443; 84484; 85025; 85027; 85610; 85730; 93005; 96361; 96365; 96366; 96367; 96375; 99285

== ENCOUNTER 2022-09-22 14:36 | Emergency (ER) | payer MEDICARE, BC ==
[2022-09-22 14:46] VITALS: RESP 18; TEMP 98.4
[2022-09-22] MEDS ORDERED: SODIUM CHLORIDE 0.9% 500 ML 500 ML IV STA (14:56)
[2022-09-22 15:38] LABS: Appearance,Urine Clear (Clear); Bilirubin,Urine Negative (Negative); Blood,Urine Negative (Negative); Color,Urine Light Yellow; Glucose,Urine (UA) Negative (Negative); Ketones,Urine 1+ (Negative); Leukocyte Esterase,Urine Negative (Negative); Nitrite,Urine Negative (Negative); Protein,Urine Negative (Negative); Specific Gravity,Urine 1.006 (1.001-1.035); Urobilinogen,Urine <2.0 mg/dL (<2.0)
[2022-09-22 15:43] LABS: Basophils % (A) 0 %; Eosinophils # (A) 0.1 k/uL (0-0.7); Eosinophils % (A) 1 %; HCT 32.6 % (39.0-53.0); HGB 10.7 gm/dL (13.0-17.5); Lymphocytes # (A) 1.7 k/uL (1.0-4.8); Lymphocytes % (A) 21 %; MCH 33.7 pg (25.0-35.0); MCHC 32.9 g/dL (31.0-37.0); MCV 102.4 fL (80.0-100.0); Macrocytosis Slight; Mean Platelet Volume 8.8; Monocytes # (A) 0.6 k/uL (0-1.0); Monocytes % (A) 7 %; Neutrophils # (A) 5.7 k/uL (1.3-7.7); Neutrophils % (A) 69 %; Platelet Count 281 k/uL (150-450); RBC 3.18 m/uL (4.30-5.90); RDW 14.5 % (11.5-15.5); WBC 8.4 k/uL (3.8-10.6)
--- NOTE | 2022-09-22 15:45 | ED ---
General Adult HPI - General Chief complaint: Abdominal Pain Stated complaint: Abd pain Time Seen by Provider: 09/22/22 14:45 Source: patient, EMS, RN notes reviewed, old records reviewed Mode of arrival: EMS Limitations: no limitations - History of Present Illness Initial comments: This is a 77-year-old male who comes in stating that he is having lower abdominal pain particularly on the left. Patient states he has had intermittent episodes of this over the last year. Patient states this episode of last few days is gotten quite a bit worse so he decided come to the emergency department. Patient denies any nausea vomiting patient denies any diarrhea. Patient has any fever chills. Patient denies any dysuria hematuria urinary frequency. Patient denies any back pain. Patient's family eventually showed up and stated that he has been taking quite a bit of [place] and they believe that he is very constipated. - Related Data Home Medications Medication Instructions Recorded Confirmed Losartan Potassium [Cozaar] 25 mg PO DAILY 10/01/21 08/24/22 Metoprolol Succinate (ER) [Toprol 12.5 mg PO DAILY 10/01/21 08/24/22 XL] Pravastatin Sodium [Pravachol] 40 mg PO HS 10/01/21 08/24/22 Pantoprazole Sodium [Protonix] 20 mg PO DAILY 11/03/21 08/24/22 Diphenoxylate HCl/Atropine 1 tab PO QID PRN 04/02/22 08/24/22 [Lomotil 2.5-0.025 mg Tablet] Ramelteon [Rozerem] 8 mg PO HS PRN 04/02/22 08/24/22 Previous Rx's Medication Instructions Recorded Aspirin 81 mg PO DAILY 6 Days #30 tab 09/14/21 Clopidogrel [Plavix] 75 mg PO DAILY #30 tab 09/14/21 levETIRAcetam [Keppra] 500 mg PO Q12H #60 tab 09/14/21 HYDROcodone/APAP 10-325MG [[place] 1 tab PO Q4HR PRN 3 Days #18 tab 08/27/22 10-325] Allergies Allergy/AdvReac Type Severity Reaction Status Date / Time venom-honey bee Allergy Anaphylaxis Verified 08/24/22 17:59 [bee venom (honey bee)] Review of Systems ROS Statement: Those systems with pertinent positive or pertinent negative responses have been documented in the HPI. ROS Other: All systems not noted in ROS Statement are negative. Past Medical History Past Medical History: Coronary Artery Disease (CAD), Cancer, Chest Pain / Angina, COPD, CVA/TIA, Dementia, Hearing Disorder / Deafness, Hypertension, Myocardial Infarction ([place]), Osteoarthritis (OA), Rheumatoid Arthritis (RA), Seizure Disorder Additional Past Medical History / Comment(s): Multiple CVAs with R sided weaknes s/mobility problems/FALLS, seizure after CVA, ischemic cardiomyopathy, increasing confusion per family, past ETOH abuse but none past couple months, concussions, chronic low back pain, skin cancer removed from nose, ROSEBUD bilaterally, diverticular disease/benign colon polyp Last Myocardial Infarction Date:: 2011 History of Any Multi-Drug Resistant Organisms: None Reported Past Surgical History: Bowel Resection, Cholecystectomy, Heart Catheterization With Stent, Orthopedic Surgery, Tonsillectomy Additional Past Surgical History / Comment(s): PCI/stents, 10/06/21 R brachiocephalic artery stenosis/angiogram and balloon angioplasty, Loop recorder, retinal detachments with 6 L eye surgeries and R eye surgery, sking cancer removed from nose, clavicular fracture with surgical repair, colonoscopy/polyp removed, orchiectomy. Past Anesthesia/Blood Transfusion Reactions: No Reported Reaction Date of Last Stent Placement:: 2019 Past Psychological History: Depression Smoking Status: Former smoker Past Alcohol Use History: Abuse Past Drug Use History: None Reported - Past Family History Daughter(s) Family Medical History: Cancer Additional Family Medical History / Comment(s): Breast cancer. Mother Additional Family Medical History / Comment(s): ETOH abuse Father Family Medical History: Myocardial Infarction ([place]) General Exam - General Exam Comments Initial Comments: GENERAL: Patient is well-developed and well-nourished. Patient is nontoxic and well- hydrated and is in mild distress. ENT: Neck is soft and supple. No significant lymphadenopathy is noted. Oropharynx is clear. Moist mucous membranes. Neck has full range of motion without eliciting any pain. EYES: The sclera were anicteric and conjunctiva were pink and moist. Extraocular movements were intact and pupils were equal round and reactive to light. Eye lids were unremarkable. PULMONARY: Unlabored respirations. Good breath sounds bilaterally. No audible rales rhonchi or wheezing was noted. CARDIOVASCULAR: There is a regular rate and rhythm without any murmurs gallops or rubs. ABDOMEN: Bilateral lower abdominal pain more so on the left than the right no point tenderness no rebound SKIN: Skin is clear with no lesions or rashes and otherwise unremarkable. NEUROLOGIC: Patient is alert and oriented x3. Cranial nerves II through XII are grossly intact. Motor and sensory are also intact. Normal speech, volume and content. Symmetrical smile. MUSCULOSKELETAL: Normal extremities with adequate strength and full range of motion. No lower extremity swelling or edema. No calf tenderness. LYMPHATICS: No significant lymphadenopathy is noted PSYCHIATRIC: Normal psychiatric evaluation. Limitations: no limitations Course Vital Signs 09/22/22 09/22/22 14:40 16:33 Temperature 98.4 F Pulse Rate 81 Respiratory 18 Rate Blood Pressure 153/92 151/101 O2 Sat by Pulse 97 Oximetry Medical Decision Making - Medical Decision Making Was pt. sent in by a medical professional or institution (, PA, SOFTWARE ENGINEER, urgent care, hospital, or retirement...) When possible be specific @ -No Did you speak to anyone other than the patient for history (EMS, parent, family, police, friend...)? What history was obtained from this source @ -Eventually family showed up and gave much more history on the patient's past medical history Did you review nursing and triage notes (agree or disagree)? Why? @ -I reviewed and agree with nursing and triage notes Were old charts reviewed (outside hosp., previous admission, EMS record, old EKG, old radiological studies, urgent care reports/EKG's, retirement records)? Report findings @ -I reviewed prior to prior lab work Differential Diagnosis (chest pain, altered mental status, abdominal pain women, abdominal pain men, vaginal bleeding, weakness, fever, dyspnea, syncope, headache, dizziness, GI bleed, back pain, seizure, CVA, palpatations, mental health, musculoskeletal)? @ -Differential Abdominal Pain Men: Appendicitis, cholecystitis, diverticulosis, ischemic bowel, pancreatitis, hepatitis, UTI, gastroenteritis, AAA, incarcerated hernia, bowel obstruction, constipation, inflammatory bowel, hepatitis, peptic ulcer disease, splenic infarction, perforated viscus, testicular torsion, this is not meant to be an all-inclusive list EKG interpreted by me (3pts min.). @ -As above X-rays interpreted by me (1pt min.). @ -No acute abnormality CT interpreted by me (1pt min.). @ -None done U/S interpreted by me (1pt. min.). @ -None done What testing was considered but not performed or refused? (CT, X-rays, U/S, labs)? Why? @ -None What meds were considered but not given or refused? Why? @ -None Did you discuss the management of the patient with other professionals (professionals i.e. DrTavon, PA, SOFTWARE ENGINEER, lab, RT, psych nurse, social science instructor, rubber vulcanizing machine operator, teacher, affirmative action officer, rehabilitation caseworker)? Give summary @ -No Was smoking cessation discussed for >3mins.? @ -No Was critical care preformed (if so, how long)? @ -No Were there social determinants of health that impacted care today? How? (Homelessness, low income, unemployed, alcoholism, drug addiction, transportation, low edu. Level, literacy, decrease access to med. care, half-way, rehab)? @ -No Was there de-escalation of care discussed even if they declined (Discuss DNR or withdrawal of care, Hospice)? DNR status @ -No What co-morbidities impacted this encounter? (DM, HTN, Smoking, COPD, CAD, Cancer, CVA, ARF, Chemo, Hep., AIDS, mental health diagnosis, sleep apnea, morbid obesity)? @ -None Was patient admitted / discharged? Hospital course, mention meds given and route, prescriptions, significant lab abnormalities, going to OR and other pertinent info. @ -Back in the room on 2 different occasions and examined the patient he was no longer having any abdominal pain patient states the pain usually comes it sharp and quick and last a few minutes and then subsides per patient states it has been ongoing off and on for over a year and he has had pain in other places that are very similar and can't explain it as well. Patient has no nausea no vomiting. Family is in the room and they are in agreement with taking the patient home. Patient does not want to stay in the hospital in moderate would like to go home and he will follow-up with his primary medical care doctor case management set up home health care for the patient and family is aware of this. Undiagnosed new problem with uncertain prognosis? @ -No Drug Therapy requiring intensive monitoring for toxicity (Heparin, Nitro, Insulin, Cardizem)? @ -No Were any procedures done? @ -No Diagnosis/symptom? @ -Chronic abdominal pain Acute, or Chronic, or Acute on Chronic? @ -Chronic Uncomplicated (without systemic symptoms) or Complicated (systemic symptoms)? @ -Complicated Side effects of treatment? @ -No Exacerbation, Progression, or Severe Exacerbation? @ -No Poses a threat to life or bodily function? How? (Chest pain, [place], [place], pneumonia, PE, COPD, DKA, ARF, appy, cholecystitis, CVA, Diverticulitis, Homicidal, Suicidal, threat to staff... and all critical care pts) @ -No - Lab Data Result diagrams: 09/22/22 15:09 09/22/22 15:09 Lab Results 09/22/22 09/22/22 09/22/22 Range/Units 15:09 15:09 15:09 WBC 8.4 (3.8-10.6) k/uL RBC 3.18 L (4.30-5.90) m/uL Hgb 10.7 L (13.0-17.5) gm/dL Hct 32.6 L (39.0-53.0) % MCV 102.4 H (80.0-100.0) fL MCH 33.7 (25.0-35.0) pg MCHC 32.9 (31.0-37.0) g/dL RDW 14.5 (11.5-15.5) % Plt Count 281 (150-450) k/uL MPV 8.8 Neutrophils % 69 % Lymphocytes % 21 % Monocytes % 7 % Eosinophils % 1 % Basophils % 0 % Neutrophils # 5.7 (1.3-7.7) k/uL Lymphocytes # 1.7 (1.0-4.8) k/uL Monocytes # 0.6 (0-1.0) k/uL Eosinophils # 0.1 (0-0.7) k/uL Basophils # 0.0 (0-0.2) k/uL Macrocytosis Slight Sodium 139 (137-145) mmol/L Potassium 3.5 (3.5-5.1) mmol/L Chloride 108 H (98-107) mmol/L Carbon Dioxide 26 (22-30) mmol/L Anion Gap 5 mmol/L BUN 8 L (9-20) mg/dL Creatinine 0.59 L (0.66-1.25) mg/dL Est GFR (CKD-EPI)AfAm >90 (>60 ml/min/1.73 sqM) Est GFR (CKD-EPI)NonAf >90 (>60 ml/min/1.73 sqM) Glucose 98 (74-99) mg/dL Calcium 8.5 (8.4-10.2) mg/dL Total Bilirubin 0.7 (0.2-1.3) mg/dL AST 20 (17-59) U/L ALT 13 (4-49) U/L Alkaline Phosphatase 64 (38-126) U/L Total Protein 5.5 L (6.3-8.2) g/dL Albumin 2.9 L (3.5-5.0) g/dL Amylase 38 (30-110) U/L Lipase 52 (23-300) U/L Urine Color Light Yellow Urine Appearance Clear (Clear) Urine pH 7.0 (5.0-8.0) Ur Specific [place] 1.006 (1.001-1.035) Urine Protein Negative (Negative) Urine Glucose (UA) Negative (Negative) Urine Ketones 1+ H (Negative) Urine Blood Negative (Negative) Urine Nitrite Negative (Negative) Urine Bilirubin Negative (Negative) Urine Urobilinogen <2.0 (<2.0) mg/dL Ur Leukocyte Esterase Negative (Negative) Acetaminophen ug/mL Serum Alcohol mg/dL 09/22/22 Range/Units 15:46 WBC (3.8-10.6) k/uL RBC (4.30-5.90) m/uL Hgb (13.0-17.5) gm/dL Hct (39.0-53.0) % MCV (80.0-100.0) fL MCH (25.0-35.0) pg MCHC (31.0-37.0) g/dL RDW (11.5-15.5) % Plt Count (150-450) k/uL MPV Neutrophils % % Lymphocytes % % Monocytes % % Eosinophils % % Basophils % % Neutrophils # (1.3-7.7) k/uL Lymphocytes # (1.0-4.8) k/uL Monocytes # (0-1.0) k/uL Eosinophils # (0-0.7) k/uL Basophils # (0-0.2) k/uL Macrocytosis Sodium (137-145) mmol/L Potassium (3.5-5.1) mmol/L Chloride (98-107) mmol/L Carbon Dioxide (22-30) mmol/L Anion Gap mmol/L BUN (9-20) mg/dL Creatinine (0.66-1.25) mg/dL Est GFR (CKD-EPI)AfAm (>60 ml/min/1.73 sqM) Est GFR (CKD-EPI)NonAf (>60 ml/min/1.73 sqM) Glucose (74-99) mg/dL Calcium (8.4-10.2) mg/dL Total Bilirubin (0.2-1.3) mg/dL AST (17-59) U/L ALT (4-49) U/L Alkaline Phosphatase (38-126) U/L Total Protein (6.3-8.2) g/dL Albumin (3.5-5.0) g/dL Amylase (30-110) U/L Lipase (23-300) U/L Urine Color Urine Appearance (Clear) Urine pH (5.0-8.0) Ur Specific [place] (1.001-1.035) Urine Protein (Negative) Urine Glucose (UA) (Negative) Urine Ketones (Negative) Urine Blood (Negative) Urine Nitrite (Negative) Urine Bilirubin (Negative) Urine Urobilinogen (<2.0) mg/dL Ur Leukocyte Esterase (Negative) Acetaminophen <10.0 ug/mL Serum Alcohol <10 mg/dL Disposition Clinical Impression: Chronic abdominal pain Disposition: HOME SELF-CARE Instructions (If sedation given, give patient instructions): Abdominal Pain (ED) Is patient prescribed a controlled substance at d/c from ED?: No Referrals: Aguilar Thurston Jr, DO [Primary Care Provider] - 1-2 days [facility], [NON-STAFF] - As Soon As Possible (Please call this number if you do not have someone reach out to you in the next 48hours.) Forms: Personal Monument Setter Helper Time of Disposition: 17:28
--- NOTE | 2022-09-22 16:01 | XR ---
EXAMINATION TYPE: XR KUB DATE OF EXAM: 09/22/2022 3:55 PM CLINICAL HISTORY: Abdominal pain ongoing for one year. TECHNIQUE: Two supine KUB images of the abdomen are obtained. COMPARISON: CT abdomen and pelvis December 08, 2018. FINDINGS: Scattered gas is seen in non-distended small and large bowel loops. Large right-sided pelvi c phleboliths redemonstrated. Vascular calcification in the pelvis extends into bilateral groin regio n. Cholecystectomy clips are redemonstrated. Lung bases remain clear. Slight scoliotic curvature is n oted. IMPRESSION: Overall nonobstructive bowel gas pattern.
[2022-09-22 16:10] LABS: Glucose 98 mg/dL (74-99)
[2022-09-22 16:11] LABS: ALT 13 U/L (4-49); AST 20 U/L (17-59); African American GFR (CKD) >90 (>60 ml/min/1.73 sqM); Albumin 2.9 g/dL (3.5-5.0); Alkaline Phosphatase 64 U/L (38-126); Amylase 38 U/L (30-110); Anion Gap 5 mmol/L; Blood Urea Nitrogen 8 mg/dL (9-20); Calcium 8.5 mg/dL (8.4-10.2); Carbon Dioxide 26 mmol/L (22-30); Chloride 108 mmol/L (98-107); Lipase 52 U/L (23-300); Non-African American GFR(CKD) >90 (>60 ml/min/1.73 sqM); Potassium 3.5 mmol/L (3.5-5.1); Sodium 139 mmol/L (137-145); Total Bilirubin 0.7 mg/dL (0.2-1.3); Total Protein 5.5 g/dL (6.3-8.2)
[2022-09-22 16:25] LABS: Acetaminophen <10.0 ug/mL; Alcohol <10 mg/dL
[2022-09-22 17:41] VITALS: BP 143/85; PULSE 72
== END 2022-09-22 17:41 | disposition home or self-care (01) ==
LOC: EC 14:36
DX: G89.29 Other chronic pain (principal); R10.30 Lower abdominal pain, unspecified; I25.10 Atherosclerotic heart disease of native coronary artery without angina pectoris; I10 Essential (primary) hypertension; I25.2 Old myocardial infarction; J44.9 Chronic obstructive pulmonary disease, unspecified; M06.9 Rheumatoid arthritis, unspecified; M19.90 Unspecified osteoarthritis, unspecified site; Z86.73 Personal history of transient ischemic attack (TIA), and cerebral infarction without residual deficits; F32.A Depression, unspecified; Z87.891 Personal history of nicotine dependence; Z91.030 Bee allergy status; Z79.899 Other long term (current) drug therapy
CPT/HCPCS: 36415; 80053; 82150; 83690; 85025; 81003; 80143; 74018; 99284; 96360; G0480; 80320